=== PATIENT | male | born 1945 | race Two or more races ===

== ENCOUNTER 2022-10-06 17:56 | Inpatient (IN) | payer OTHER, MEDICAID ==
[~2022-10-06] VITALS: Ht 160 cm; Wt 51.7 kg
[2022-10-06 19:48] LABS: Basophils # (auto) 0.1 10 ^3/uL (0-0.2); Eosinophils # (auto) 0.5 10 ^3/uL (0-0.8); Hematocrit 16.3 % (41.0-53.0); Mean Corpuscular Volume 93.4 fL (80.0-100.0); Neutrophils # (auto) 6.5 10 ^3/uL (1.6-8.6)
[2022-10-06 19:49] LABS: Basophils % (auto) 1.3 % (0.0-2.0); Eosinophils % (auto) 5.2 % (0.0-7.0); Lymphocytes # (auto) 1.1 10 ^3/uL (0.4-5.4); Lymphocytes % (auto) 12.6 % (10.0-50.0); Mean Corpuscular Hemoglobin 30.6 pg (28.0-32.0); Mean Corpuscular Hgb Conc. 32.7 g/dL (32.0-36.0); Monocytes # (auto) 0.6 10 ^3/uL (0-1.3); Monocytes % (auto) 6.4 % (0.0-12.0); Neutrophils % (auto) 74.5 % (37.0-80.0); Red Blood Cells 1.75 10^6/uL (4.5-5.90); Red Cell Distribution Width 16.1 % (11.8-14.3); White Blood Cell 8.7 10^3/uL (4.4-10.8)
[2022-10-06 19:54] LABS: Hemoglobin 5.3 g/dL (13.5-17.5)
[2022-10-06 20:45] LABS: Albumin 3.9 g/dL (3.4-5.0); Calcium 8.7 mg/dL (8.5-10.1); Potassium 5.5 mmol/L (3.5-5.1)
[2022-10-06 20:48] LABS: BUN/Creatinine Ratio 9.4 (10.0-20.0); Bilirubin, Total 0.4 mg/dL (0.2-1.0); Total Protein 7.9 g/dL (6.4-8.2)
[2022-10-06] MEDS ORDERED: ACETAMINOPHEN 325 MG TAB PO PRN (21:45)
[2022-10-06] MEDS ORDERED: ONDANSETRON HCL 4 MG/2 ML VIAL IV PRN (21:45)
[2022-10-06] MEDS ORDERED: SODIUM CHLORIDE 0.9% 1,000 ML IV SCH (21:45)
[2022-10-06] MEDS ORDERED: DOCUSATE SOD 100 MG CAP PO PRN (21:45)
[2022-10-06] MEDS ORDERED: InsuLIN REG 1unit/0.01ml Soln (100units/ml) IV ONE (22:45)
[2022-10-06] MEDS ORDERED: SODIUM BICARBONATE 8.4 % INJ 50ML VIAL IV ONE (22:45)
[2022-10-06] MEDS ORDERED: DEXTROSE (50%) 50ML SYRG IV ONE (22:45)
[2022-10-06] MEDS ORDERED: DEXTROSE 10% 1,000 ML IV ONE (23:58)
[2022-10-06] MEDS: HYDROcodone-ACET 5/325MG TAB PO PRN (23:59)
[2022-10-07] VITALS (7 sets, daily range): BP systolic 153–179; BP diastolic 62–89
[2022-10-07] MEDS ORDERED: SODIUM BICARBONATE 50ML VIAL 75 ML in SOD CHL 0.45% 1,000 ML IV ONE ×2
[2022-10-07] MEDS ORDERED: DEXTROSE (50%) 50ML SYRG IV PRN
[2022-10-07] MEDS ORDERED: MORPHINE SULFATE INJ 2 MG/ml SYRG IV PRN
[2022-10-07] MEDS ORDERED: ONDANSETRON HCL 4 MG/2 ML VIAL IV PRN
[2022-10-07] MEDS ORDERED: NITROGLYCERIN 0.4 MG SL TAB SL PRN
[2022-10-07] MEDS ORDERED: FUROSEMIDE 100 MG/10ML VIAL IV ONE
[2022-10-07] MEDS ORDERED: SODIUM BICARBONATE 8.4 % INJ 50ML VIAL IV ONE (00:25)
[2022-10-07 01:10] LABS: % Iron Saturation 7.8 % (20-55)
[2022-10-07 06:05] LABS: Basophils # (auto) 0.1 10 ^3/uL (0-0.2); Basophils % (auto) 0.9 % (0.0-2.0); Eosinophils # (auto) 0.1 10 ^3/uL (0-0.8); Lymphocytes # (auto) 0.5 10 ^3/uL (0.4-5.4); Neutrophils # (auto) 9.5 10 ^3/uL (1.6-8.6); White Blood Cell 10.9 10^3/uL (4.4-10.8)
[2022-10-07 06:08] LABS: Eosinophils % (auto) 1.1 % (0.0-7.0); Hematocrit 14.8 % (41.0-53.0); Lymphocytes % (auto) 4.8 % (10.0-50.0); Mean Corpuscular Hemoglobin 31.3 pg (28.0-32.0); Mean Corpuscular Hgb Conc. 33.8 g/dL (32.0-36.0); Mean Corpuscular Volume 92.7 fL (80.0-100.0); Monocytes # (auto) 0.7 10 ^3/uL (0-1.3); Monocytes % (auto) 6.1 % (0.0-12.0); Neutrophils % (auto) 87.1 % (37.0-80.0); Red Cell Distribution Width 15.8 % (11.8-14.3)
[2022-10-07 06:16] LABS: Urine Bacteria FEW /hpf (None Seen); Urine Blood TRACE /uL (Negative); Urine Specific Gravity 1.009 (1.001-1.035); Urine WBC 870 /hpf (0 - 3); Urine WBC Clumps PRESENT /hpf (None Seen)
[2022-10-07 06:20] LABS: Potassium 5.2 mmol/L (3.5-5.1)
[2022-10-07 06:26] LABS: Albumin 3.4 g/dL (3.4-5.0); Calcium 8.8 mg/dL (8.5-10.1)
[2022-10-07 06:29] LABS: Bilirubin, Total 0.4 mg/dL (0.2-1.0); Total Protein 7.2 g/dL (6.4-8.2)
[2022-10-07] MEDS: InsuLIN REG 1unit/0.01ml Soln (100units/ml) SC SCH ×4 (07:00→22:00)
[2022-10-07] MEDS: hydrALAZINE HCL 20 MG/ML VL IV PRN ×2 (07:02→14:49)
[2022-10-07] MEDS: ACCU-CHEK COMFORT CURVE STRIP VI SCH ×4 (07:04→22:08)
[2022-10-07] MEDS: FAMOTIDINE (10MG/ML) 2ML VL IV SCH (11:00)
[2022-10-07] MEDS ORDERED: IRON SUCROSE COMPLEX 200 MG in SODIUM CHL 0.9% 100 ML IV SCH (15:00)
[2022-10-07 15:49] LABS: Magnesium 2.1 mg/dL (1.6-2.6); Phosphorus 4.6 mg/dL (2.5-4.90)
[2022-10-07] MEDS: SODIUM FERR GLUC 62.5MG/5ML 125 MG in SODIUM CHL 0.9% 100 ML IV SCH (16:33)
[2022-10-07] MEDS: BUMETANIDE INJECTION 25 MG in GIVE UN-DILUTED 0 ML IV SCH (17:33)
[2022-10-08 00:36] LABS: Mean Corpuscular Hemoglobin 28.8 pg (28.0-32.0)
[2022-10-08 00:38] LABS: Basophils # (auto) 0.1 10 ^3/uL (0-0.2); Basophils % (auto) 0.3 % (0.0-2.0); Eosinophils # (auto) 0 10 ^3/uL (0-0.8); Hematocrit 21.6 % (41.0-53.0); Hemoglobin 7.3 g/dL (13.5-17.5); Lymphocytes # (auto) 0.3 10 ^3/uL (0.4-5.4); Lymphocytes % (auto) 2.3 % (10.0-50.0); Mean Corpuscular Hgb Conc. 33.7 g/dL (32.0-36.0); Mean Corpuscular Volume 85.7 fL (80.0-100.0); Monocytes # (auto) 0.8 10 ^3/uL (0-1.3); Monocytes % (auto) 5.6 % (0.0-12.0); Neutrophils # (auto) 13.7 10 ^3/uL (1.6-8.6); Neutrophils % (auto) 91.8 % (37.0-80.0); Nucleated Red Blood Cells % 1.1 %; Red Blood Cells 2.52 10^6/uL (4.5-5.90); Red Cell Distribution Width 19.6 % (11.8-14.3); White Blood Cell 14.9 10^3/uL (4.4-10.8)
[2022-10-08] MEDS ORDERED: IPRATROPIUM BROM 0.5 MG/2.5ML INH SOL NEB PRN (03:15)
[2022-10-08] MEDS ORDERED: ALBUTEROL SULF 2.5 MG/0.5ML(0.5%) NEB SOLN NEB PRN (03:15)
[2022-10-08 04:11] VITALS: BP 184/87
[2022-10-08] MEDS: hydrALAZINE HCL 20 MG/ML VL IV PRN ×2 (04:42→16:38)
[2022-10-08] MEDS: ACCU-CHEK COMFORT CURVE STRIP VI SCH ×4 (06:15→21:45)
[2022-10-08] MEDS: InsuLIN REG 1unit/0.01ml Soln (100units/ml) SC SCH ×4 (06:27→21:46)
[2022-10-08 07:32] LABS: Calcium 8.5 mg/dL (8.5-10.1); Potassium 5.5 mmol/L (3.5-5.1)
[2022-10-08 07:36] LABS: BUN/Creatinine Ratio 10.5 (10.0-20.0)
[2022-10-08 08:05] LABS: Basophils # (auto) 0 10 ^3/uL (0-0.2); Basophils % (auto) 0.2 % (0.0-2.0); Eosinophils # (auto) 0 10 ^3/uL (0-0.8); Eosinophils % (auto) 0.1 % (0.0-7.0); Hematocrit 21.8 % (41.0-53.0); Hemoglobin 7.2 g/dL (13.5-17.5); Lymphocytes # (auto) 0.6 10 ^3/uL (0.4-5.4); Lymphocytes % (auto) 4.3 % (10.0-50.0); Mean Corpuscular Hemoglobin 28.6 pg (28.0-32.0); Mean Corpuscular Hgb Conc. 33.2 g/dL (32.0-36.0); Mean Corpuscular Volume 86.2 fL (80.0-100.0); Monocytes % (auto) 6.8 % (0.0-12.0); Neutrophils # (auto) 12.6 10 ^3/uL (1.6-8.6); Neutrophils % (auto) 88.6 % (37.0-80.0); Red Blood Cells 2.53 10^6/uL (4.5-5.90); Red Cell Distribution Width 19.4 % (11.8-14.3); White Blood Cell 14.2 10^3/uL (4.4-10.8)
[2022-10-08] MEDS: cefTRIAXone 1GM/50ML D5W 50 ML IV SCH (09:19)
[2022-10-08] MEDS: FAMOTIDINE (10MG/ML) 2ML VL IV SCH (10:28)
[2022-10-08 13:00] VITALS: BP 165/80
[2022-10-08] MEDS ORDERED: SODIUM ZIRCONIUM CYCL 10 GM PAK PO ONE (13:45)
[2022-10-08 13:54] VITALS: BP 181/87
[2022-10-08] MEDS: SODIUM ZIRCONIUM CYCL 10 GM PAK PO SCH ×2 (14:00→21:44)
[2022-10-08] MEDS: BUMETANIDE INJECTION 25 MG in GIVE UN-DILUTED 0 ML IV SCH (14:57)
[2022-10-08] MEDS: SODIUM FERR GLUC 62.5MG/5ML 125 MG in SODIUM CHL 0.9% 100 ML IV SCH (15:50)
[2022-10-08 16:56] VITALS: BP 192/86
[2022-10-08] MEDS: SODIUM BICARBONATE 650 MG TAB PO SCH ×2 (18:27→21:44)
[2022-10-08 18:30] VITALS: BP 163/81
[2022-10-08 22:00] VITALS: BP 169/85
[2022-10-08] MEDS: HYDROcodone-ACET 5/325MG TAB PO PRN (23:18)
[2022-10-09] VITALS (8 sets, daily range): BP systolic 151–164; BP diastolic 73–87
[2022-10-09] MEDS ORDERED: AMIODARONE HCL 150 MG in D5W 5% 100 ML IV ONE (05:00)
[2022-10-09] MEDS ORDERED: AMIODARONE 450mg/250ml AE 250 ML IV SCH (05:00)
[2022-10-09] MEDS ORDERED: HEPARIN DRIP/D5W 100UNITS/ML 250 ML IV SCH ×2 (05:00→13:30)
[2022-10-09] MEDS ORDERED: AMIODARONE 450mg/250ml AE 250 ML IV ONE (05:04)
[2022-10-09] MEDS ORDERED: AMIODARONE HCL (50 MG/ ML) 3 ML VIAL IV ONE (05:05)
[2022-10-09] MEDS ORDERED: HEPARIN DRIP/D5W 100UNITS/ML 250 ML IV ONE (05:06)
[2022-10-09] MEDS ORDERED: HEPARIN SODIUM (PORCINE) 5000 UNITS/ML 1ML VIAL IV ONE (05:15)
[2022-10-09 06:06] LABS: Eosinophils # (auto) 0.1 10 ^3/uL (0-0.8); Eosinophils % (auto) 0.6 % (0.0-7.0); Hemoglobin 8.4 g/dL (13.5-17.5); Lymphocytes # (auto) 0.8 10 ^3/uL (0.4-5.4); Monocytes # (auto) 0.9 10 ^3/uL (0-1.3)
[2022-10-09 06:07] LABS: Basophils # (auto) 0.1 10 ^3/uL (0-0.2); Basophils % (auto) 0.5 % (0.0-2.0); Lymphocytes % (auto) 6.4 % (10.0-50.0); Mean Corpuscular Hemoglobin 28.3 pg (28.0-32.0); Mean Corpuscular Hgb Conc. 32.3 g/dL (32.0-36.0); Mean Corpuscular Volume 87.6 fL (80.0-100.0); Monocytes % (auto) 7.2 % (0.0-12.0); Neutrophils # (auto) 10.8 10 ^3/uL (1.6-8.6); Neutrophils % (auto) 85.3 % (37.0-80.0); Nucleated Red Blood Cells % 0.1 %; Red Blood Cells 2.97 10^6/uL (4.5-5.90); White Blood Cell 12.6 10^3/uL (4.4-10.8)
[2022-10-09] MEDS: SODIUM ZIRCONIUM CYCL 10 GM PAK PO SCH ×3 (06:07→21:48)
[2022-10-09] MEDS: SODIUM BICARBONATE 650 MG TAB PO SCH ×4 (06:08→21:48)
[2022-10-09] MEDS: HYDROcodone-ACET 5/325MG TAB PO PRN ×2 (06:08→21:48)
[2022-10-09 06:20] LABS: Red Cell Distribution Width 20.2 % (11.8-14.3)
[2022-10-09] MEDS: InsuLIN REG 1unit/0.01ml Soln (100units/ml) SC SCH ×4 (06:22→21:53)
[2022-10-09] MEDS: ACCU-CHEK COMFORT CURVE STRIP VI SCH ×4 (06:22→22:25)
[2022-10-09 06:29] LABS: BUN/Creatinine Ratio 11.1 (10.0-20.0); Calcium 9.2 mg/dL (8.5-10.1); Magnesium 2.2 mg/dL (1.6-2.6); Potassium 4.3 mmol/L (3.5-5.1)
[2022-10-09 07:15] LABS: INR 1.22 (0.9-1.15); Partial Thromboplastin Time 44.6 sec (24.6-33.4)
[2022-10-09] MEDS: cefTRIAXone 1GM/50ML D5W 50 ML IV SCH (08:51)
[2022-10-09] MEDS: FAMOTIDINE (10MG/ML) 2ML VL IV SCH (09:34)
[2022-10-09] MEDS: AMIODARONE 450mg/250ml AE 250 ML IV SCH (11:00)
[2022-10-09] MEDS ORDERED: FUROSEMIDE 40 MG/4 ML VIAL IV ONE (13:45)
[2022-10-09] MEDS: SODIUM FERR GLUC 62.5MG/5ML 125 MG in SODIUM CHL 0.9% 100 ML IV SCH (14:24)
[2022-10-09] MEDS: BUMETANIDE INJECTION 25 MG in GIVE UN-DILUTED 0 ML IV SCH (15:00)
[2022-10-09] MEDS: hydrALAZINE HCL 20 MG/ML VL IV PRN (15:41)
[2022-10-09] MEDS ORDERED: LIDOCAINE 2%HCL (LOCAL ANESTH.) INJ 20ML MDV ONE (16:55)
[2022-10-09] MEDS ORDERED: HEPARIN SODIUM (PORCINE) 5000 UNITS/ML 1ML VIAL ONE (17:09)
[2022-10-09] MEDS ORDERED: fentaNYL CITRATE 100 MCG/2 ML VL ONE (17:09)
[2022-10-09] MEDS ORDERED: MIDAZOLAM HCL 2MG/2ML 2ml VIAL (1mg/ml) ONE (17:09)
[2022-10-09] MEDS: METOPROLOL TARTRATE 25 MG TAB PO SCH (21:51)
[2022-10-10 01:09] LABS: INR 1.18 (0.9-1.15)
[2022-10-10 05:00] VITALS: BP 120/61
[2022-10-10 05:57] LABS: Basophils # (auto) 0.1 10 ^3/uL (0-0.2); Eosinophils # (auto) 0.3 10 ^3/uL (0-0.8); Eosinophils % (auto) 3.1 % (0.0-7.0); Lymphocytes # (auto) 0.6 10 ^3/uL (0.4-5.4); Monocytes # (auto) 0.8 10 ^3/uL (0-1.3); Nucleated Red Blood Cells % 0.1 %; Red Blood Cells 2.54 10^6/uL (4.5-5.90)
[2022-10-10 06:01] LABS: Basophils % (auto) 0.7 % (0.0-2.0); Hematocrit 21.7 % (41.0-53.0); Hemoglobin 7.6 g/dL (13.5-17.5); Lymphocytes % (auto) 6.5 % (10.0-50.0); Mean Corpuscular Hgb Conc. 35.1 g/dL (32.0-36.0); Mean Corpuscular Volume 85.5 fL (80.0-100.0); Monocytes % (auto) 8.4 % (0.0-12.0); Neutrophils # (auto) 7.3 10 ^3/uL (1.6-8.6); Neutrophils % (auto) 81.3 % (37.0-80.0); Red Cell Distribution Width 19.2 % (11.8-14.3)
[2022-10-10] MEDS: HYDROcodone-ACET 5/325MG TAB PO PRN (06:04)
[2022-10-10] MEDS: SODIUM BICARBONATE 650 MG TAB PO SCH ×2 (06:04→12:27)
[2022-10-10] MEDS: SODIUM ZIRCONIUM CYCL 10 GM PAK PO SCH (06:04)
[2022-10-10] MEDS: InsuLIN REG 1unit/0.01ml Soln (100units/ml) SC SCH ×3 (06:07→16:45)
[2022-10-10] MEDS: ACCU-CHEK COMFORT CURVE STRIP VI SCH ×3 (06:07→16:44)
[2022-10-10 06:14] LABS: BUN/Creatinine Ratio 10.9 (10.0-20.0); Calcium 8.1 mg/dL (8.5-10.1); Potassium 3.9 mmol/L (3.5-5.1)
[2022-10-10 06:22] LABS: INR 1.21 (0.9-1.15); Partial Thromboplastin Time 53.2 sec (24.6-33.4)
[2022-10-10] MEDS ORDERED: SODIUM CHL 0.9% 1000 ML BAG XX ONE (07:00)
[2022-10-10 08:00] VITALS: BP 127/67
[2022-10-10] MEDS ORDERED: APIX5TAB PO (08:21)
[2022-10-10] MEDS ORDERED: MET25T PO (08:21)
[2022-10-10] MEDS: cefTRIAXone 1GM/50ML D5W 50 ML IV SCH (08:31)
[2022-10-10] MEDS: FAMOTIDINE (10MG/ML) 2ML VL IV SCH (10:38)
[2022-10-10] MEDS: METOPROLOL TARTRATE 25 MG TAB PO SCH (10:38)
[2022-10-10] MEDS: AMIODARONE 450mg/250ml AE 250 ML IV SCH (10:55)
[2022-10-10 12:00] VITALS: BP 145/78
[2022-10-10] MEDS: SODIUM FERR GLUC 62.5MG/5ML 125 MG in SODIUM CHL 0.9% 100 ML IV SCH (12:00)
[2022-10-10 12:35] LABS: INR 1.21 (0.9-1.15); Partial Thromboplastin Time 46.7 sec (24.6-33.4)
[2022-10-10] MEDS ORDERED: HEPARIN DRIP/D5W 100UNITS/ML 250 ML IV SCH (13:15)
[2022-10-10] MEDS: BUMETANIDE INJECTION 25 MG in GIVE UN-DILUTED 0 ML IV SCH (15:00)
[2022-10-10 16:00] VITALS: BP 156/75
[2022-10-10 17:27] VITALS: BP 156/75
[2022-10-10] MEDS ORDERED: EPOETIN ALFA-EPBX 10,000 UNIT/1ML VIAL SC ONE (21:00)
== END 2022-10-10 18:00 | disposition home or self-care (01) | DRG 808 ==
LOC: ER 17:56 → TELE 23:53 → OBSVTOIN 10-08 11:49 → CENTRAL 10-08 12:41 → TELE-CENTR 10-08 13:41
PROVIDERS: ADMIT Hospitalist; ATTEND Hospitalist
PROC: 30233N1 Transfusion of Nonautologous Red Blood Cells into Peripheral Vein, Percutaneous Approach (ICD-10-PCS; principal; 2022-10-07)
PROC: 0JH63XZ Insertion of Tunneled Vascular Access Device into Chest Subcutaneous Tissue and Fascia, Percutaneous Approach (ICD-10-PCS; 2022-10-09)
PROC: 02HV33Z Insertion of Infusion Device into Superior Vena Cava, Percutaneous Approach (ICD-10-PCS; 2022-10-09)
PROC: B5181ZA Fluoroscopy of Superior Vena Cava using Low Osmolar Contrast, Guidance (ICD-10-PCS; 2022-10-09)
PROC: B548ZZA Ultrasonography of Superior Vena Cava, Guidance (ICD-10-PCS; 2022-10-09)
DX: D61.9 Aplastic anemia, unspecified (principal); N18.6 End stage renal disease; E87.20 Acidosis, unspecified; I12.0 Hypertensive chronic kidney disease with stage 5 chronic kidney disease or end stage renal disease; N13.30 Unspecified hydronephrosis; N17.9 Acute kidney failure, unspecified; D63.1 Anemia in chronic kidney disease; E11.22 Type 2 diabetes mellitus with diabetic chronic kidney disease; E87.5 Hyperkalemia; F17.210 Nicotine dependence, cigarettes, uncomplicated; E87.70 Fluid overload, unspecified; I48.91 Unspecified atrial fibrillation; J44.9 Chronic obstructive pulmonary disease, unspecified; J84.10 Pulmonary fibrosis, unspecified; Z79.4 Long term (current) use of insulin; Z80.0 Family history of malignant neoplasm of digestive organs; Z80.3 Family history of malignant neoplasm of breast; Z85.038 Personal history of other malignant neoplasm of large intestine; Z90.49 Acquired absence of other specified parts of digestive tract; Z91.199 Patient's noncompliance with other medical treatment and regimen due to unspecified reason; Z93.3 Colostomy status; Z99.2 Dependence on renal dialysis
CPT/HCPCS: 36415; 71045; 74176; 76775; 76937; 78707; 80048; 80053; 80074; 81001; 82306; 82570; 82962; 83540; 83550; 83735; 83970; 84100; 84156; 84300; 85025; 85610; 85730; 86850; 86900; 86901; 86920; 90935; 93306; 94640; 96365; 96375; 99152; C1750; C1894; G0378; J0696; J1642; J1756; J1815; J2250; J3490; J7060

== ENCOUNTER 2022-10-31 12:49 | Emergency (ER) | payer OTHER, MEDICAID ==
[~2022-10-31] VITALS: Ht 165.1 cm; Wt 68.1 kg
[~2022-10-31 12:49] MED LIST: APIX5TAB PO; MET25T PO
[2022-10-31] MEDS ORDERED: LIDOCAINE 1% (LOCAL ANESTH.) PF 5ml SDV ID ONE (13:15)
[2022-10-31 13:28] LABS: Basophils # (auto) 0.1 10 ^3/uL (0-0.2); Eosinophils # (auto) 0.4 10 ^3/uL (0-0.8); Hematocrit 21.8 % (41.0-53.0); Lymphocytes # (auto) 0.8 10 ^3/uL (0.4-5.4); Neutrophils # (auto) 6.2 10 ^3/uL (1.6-8.6); White Blood Cell 8.2 10^3/uL (4.4-10.8)
[2022-10-31 13:30] LABS: Eosinophils % (auto) 4.5 % (0.0-7.0); Hemoglobin 7.3 g/dL (13.5-17.5); Lymphocytes % (auto) 10.1 % (10.0-50.0); Mean Corpuscular Hemoglobin 29.9 pg (28.0-32.0); Mean Corpuscular Hgb Conc. 33.4 g/dL (32.0-36.0); Mean Corpuscular Volume 89.8 fL (80.0-100.0); Monocytes # (auto) 0.7 10 ^3/uL (0-1.3); Monocytes % (auto) 8.5 % (0.0-12.0); Neutrophils % (auto) 75.9 % (37.0-80.0); Red Blood Cells 2.42 10^6/uL (4.5-5.90); Red Cell Distribution Width 19.8 % (11.8-14.3)
[2022-10-31] MEDS ORDERED: LIDOCAINE 1% HCL (LOCAL ANESTH.) INJ 20ML MDV ONE (13:49)
[2022-10-31 13:58] LABS: Albumin 3.3 g/dL (3.4-5.0); Potassium 4.7 mmol/L (3.5-5.1)
[2022-10-31 14:01] LABS: BUN/Creatinine Ratio 4.3 (10.0-20.0); Bilirubin, Total 0.5 mg/dL (0.2-1.0); Total Protein 6.7 g/dL (6.4-8.2)
[2022-10-31 14:10] VITALS: BP 166/59
== END 2022-10-31 15:11 | disposition home or self-care (01) ==
LOC: ER 12:49 → EDBD 12:49 → ER 15:10
DX: T82.41XA Breakdown (mechanical) of vascular dialysis catheter, initial encounter (principal); F17.210 Nicotine dependence, cigarettes, uncomplicated; I12.9 Hypertensive chronic kidney disease with stage 1 through stage 4 chronic kidney disease, or unspecified chronic kidney disease; N18.9 Chronic kidney disease, unspecified
CPT/HCPCS: 36415; 80053; 85025; J2001

== ENCOUNTER 2022-11-07 17:40 | Emergency (ER) | payer OTHER, MEDICAID ==
[~2022-11-07] VITALS: Ht 170.2 cm; Wt 69.5 kg
[2022-11-07 18:41] LABS: Basophils # (auto) 0.1 10 ^3/uL (0-0.2); Eosinophils # (auto) 0.4 10 ^3/uL (0-0.8); Hematocrit 20.3 % (41.0-53.0); Lymphocytes # (auto) 1.1 10 ^3/uL (0.4-5.4); Monocytes # (auto) 0.6 10 ^3/uL (0-1.3); Monocytes % (auto) 9.4 % (0.0-12.0); Red Blood Cells 2.22 10^6/uL (4.5-5.90)
[2022-11-07 18:43] LABS: Basophils % (auto) 1.6 % (0.0-2.0); Eosinophils % (auto) 6.3 % (0.0-7.0); Mean Corpuscular Hemoglobin 30.2 pg (28.0-32.0); Mean Corpuscular Hgb Conc. 33.1 g/dL (32.0-36.0); Mean Corpuscular Volume 91.3 fL (80.0-100.0); Neutrophils # (auto) 4.5 10 ^3/uL (1.6-8.6); Neutrophils % (auto) 66.7 % (37.0-80.0); White Blood Cell 6.7 10^3/uL (4.4-10.8)
[2022-11-07 18:47] LABS: Red Cell Distribution Width 20.8 % (11.8-14.3)
[2022-11-07 18:50] LABS: Albumin 3.2 g/dL (3.4-5.0); Calcium 7.9 mg/dL (8.5-10.1); Potassium 3.8 mmol/L (3.5-5.1)
[2022-11-07 18:51] LABS: Hemoglobin 6.7 g/dL (13.5-17.5)
[2022-11-07 18:53] LABS: BUN/Creatinine Ratio 3.9 (10.0-20.0); Bilirubin, Total 0.5 mg/dL (0.2-1.0); Total Protein 6.8 g/dL (6.4-8.2)
[2022-11-07 19:05] LABS: INR 1.23 (0.9-1.15); Partial Thromboplastin Time 33.3 SEC (24.5-34.5)
[2022-11-07 22:11] VITALS: BP 131/68
[2022-11-07 22:30] VITALS: BP 185/80
[2022-11-07 22:43] VITALS: BP 122/76
[2022-11-08 00:05] VITALS: BP 206/94
[2022-11-08] MEDS ORDERED: amLODIPine BESYLATE 5 MG TAB PO ONE (00:15)
[2022-11-08 00:34] VITALS: BP 191/91
[2022-11-08 02:00] VITALS: BP 198/99
== END 2022-11-08 02:16 | disposition home or self-care (01) ==
LOC: ER 17:40
DX: D64.9 Anemia, unspecified (principal); I12.0 Hypertensive chronic kidney disease with stage 5 chronic kidney disease or end stage renal disease; N18.6 End stage renal disease; E78.5 Hyperlipidemia, unspecified; F17.210 Nicotine dependence, cigarettes, uncomplicated
CPT/HCPCS: 36415; 36430; 80053; 85025; 85610; 85730; 86850; 86900; 86901; 86920; 99285; P9016

== ENCOUNTER 2024-11-21 11:09 | Inpatient (IN) | payer OTHER, MEDICARE ==
[2024-11-21] VITALS (9 sets, daily range): BP systolic 154–181; BP diastolic 55–79; PULSE 77–86; RESP 16–22; TEMP 97.5–98.8; O2SAT 94–99
[~2024-11-21] VITALS: Ht 167.6 cm; Wt 21.2 kg
--- NOTE | 2024-11-21 11:46 | ED.PDOC ---
History of Present Illness HPI Comments HPI: A 78 year-old male, with a HX of Kidney Failure, BIB daughter, presents to the ED via wheelchair with a chief complaint general weakness with associated dark stools as of today. Per daughter, patient goes to dialysis regularly and was told on Sunday that his hemoglobin is low. Per daughter, patient recently slipped and injured his ribs. Patient has no further complaints at this time and otherwise denies further associated symptoms of migraine, slurred speech, blurred vision, dizziness, fatigue, N/V, or abdominal pain. Past Medical history: Kidney Failure Past Surgical history: Medications: Social History: Denies smoking, ETOH, and drug use. Allergies: NKA NG: HPI: Poor Historian. Patient family was called regarding low hemoglobin. Patient had blood transfusion in the past. Patient has some generalized weakness. No other acute complaints. Patient has his most recent dialysis two days ago on Sunday. He is scheduled for dialysis today. Past Medical History: Past Surgical History: REVIEW OF SYSTEMS: CONSTITUTIONAL: Denies acute: fever, diaphoresis, chills, HEAD: Denies acute: headache, photophobia Eyes: Denies acute: Double vision, vision loss, eye pain, eye discharge. EARS: Denies acute: tinnitus, hearing loss, ear discharge, ear pain, THROAT: Denies acute: sore throat, swelling, difficulty swallowing , pain with swallowing, change in voice. NECK: Denies acute: neck pain, neck swelling, stiff neck. HEART: Denies acute : chest pain, palpitations, LUNGS: Denies acute: SOB, wheezing, cough, hemoptysis ABDOMEN: Denies acute: abdominal pain, Nausea, Vomiting, diarrhea, melena , hematemesis, hematochezia SKIN: Denies acute: rash, redness, lesions, itchiness. EXTREMITIES: Denies acute: calf pain, numbness, tingling, weakness, denies pain in extremity. Denies acute: Low back pain. Neuro: Denies acute: focal neurological deficit, motor or sensory focal neurological deficit, tremors, seizure like activity, confusion, dizziness, change in mental status, loss of bowel or bladder function, cauda equina like symptoms. : Denies acute: dysuria, hematuria, flank pain, increase in urinary frequency. PSYCH: Denies acute: hallucination, suicidal ideation, homicidal ideation. FEMALE: Denies acute: abnormal vaginal bleeding, foul odor, unusual discharge. PHYSICAL EXAM: General: -----mild---acute distress, awake and alert. Head: normocephalic, atraumatic. Neck: supple, trachea is midline, no swelling. Throat: Normal phonation. Eyes:, no erythema, no purulent discharge, no proptosis, no icterus. Heart: regular rate, regular rhythm, no significant murmur appreciated. Lungs: no apparent respiratory distress, Able to speak in full sentences. No wheezing, no rhonchi, no crackles. No stridors Clear to auscultation bilaterally. Abdomen: non tender to palpation, non distended, soft, no guarding, no rebound, + bowel sounds. Noted the colostomy pouch Neuro: Awake, Alert, oriented to name, self, situation, follows commands GCS=15. Speech is normal. Skin: no petechia, no purpura, no cyanosis, non-pale, not jaundice. Lower extremities: --no - Pitting edema no deformity, no focal swelling, no calf TTP. Makes eye contact. moves all four extremities. Face: no apparent facial droop. ED COURSE: DISCLAIMER: This medical document was created using an electronic medical record system with voice recognition software and computerized dictation system. Although this document has been carefully reviewed, there might still be some phonetic and typographical errors. Occasional wrong-word or "sound-alike" substitutions may have occurred due to the inherent limitations of voice recognition software. These areas are purely typographical due to imperfections of the software programs and do not reflect any compromise in the patient's medical care. Please read the chart carefully and recognize, using context, where these substitutions have occurred. Chief Complaint: General Weakness Time Seen by MD: 11:09 Reviewed Notes: Medications, Allergies Allergies: Coded Allergies: No Known Drug Allergy (Verified Allergy, Unknown, 11/21/24) Information Source: Patient, Relative (Child) Mode of Arrival: Wheelchair Severity: Moderate Timing: Days Duration: Since onset Prehospital treatment: None Associated signs and symptoms General Weakness and Dark Stool Past Medical History Past Medical History (Other): Kidney Failure Surgical History: Denies all surgeries Family History Family History: Reviewed,noncontributory to illness, No family hx of Cancer, No family hx of DM, No family hx of Heart doris, No family hx of HTN, No family hx ofKidney doris, No family hx of Liver doris, No family hx of Lung doris, No family hx of Stroke Social History Smoker: Non-Smoker Alcohol: Denies ETOH Use Drugs: Denies Drug Use Lives In: Assisted Care Was a procedure done? Was a procedure done?: No Differential Dx Considerations may include: Includes but not limited to thyroid disease, encephalopathy, electrolyte abnormality, sepsis, infection, intracranial pathology, drug adverse effects, arrhythmia, kidney insufficiency, ACS, CVA, malignancy, anemia X-Ray, Labs, Meds, VS Vital Signs Date Time Temp Pulse Resp B/P (MAP) Pulse Ox O2 Delivery O2 Flow Rate FiO2 11/21/24 16:00 78 22 185/53 (97) 93 11/21/24 15:30 97.5 79 22 164/55 97.5 11/21/24 15:15 98.1 83 18 181/61 98.1 11/21/24 14:00 81 22 158/63 (94) 94 11/21/24 12:35 Nasal Cannula* 3 32 11/21/24 12:35 98.1 80 22 150/54 (86) 95 98.1 11/21/24 12:00 98.7 75 16 132/47 (75) 97 98.7 11/21/24 11:51 75 Lab Test 11/21/24 15:56 11/21/24 14:56 11/21/24 13:05 11/21/24 11:46 Range/Units Prothrombin Time 13.0 H 9.3-11.8 sec Prothrombin Time INR 1.25 H 0.9-1.15 Activated Partial Thromboplast Time 41.6 H 24.5-34.5 SEC Troponin I High Sensitivity 61 *H 58 *H </=54 ng/L POC Glucose 146 H 70-106 mg/dl Test 11/21/24 11:36 Range/Units White Blood Count 12.3 H 4.4-10.8 10^3/uL Red Blood Count 1.89 L 4.5-5.90 10^6/uL Hemoglobin 5.8 *L 13.5-17.5 g/dL Hematocrit 17.9 L 41.0-53.0 % Mean Corpuscular Volume 94.5 80.0-100.0 fL Mean Corpuscular Hemoglobin 30.4 28.0-32.0 pg Mean Corpuscular Hemoglobin Concent 32.1 32.0-36.0 g/dL Red Cell Distribution Width 17.4 H 11.8-14.3 % Platelet Count 267 140-450 10^3/uL Mean Platelet Volume 8.0 6.9-10.8 fL Neutrophils (%) (Auto) 87.5 H 37.0-80.0 % Lymphocytes (%) (Auto) 5.1 L 10.0-50.0 % Monocytes (%) (Auto) 4.9 0.0-12.0 % Eosinophils (%) (Auto) 2.1 0.0-7.0 % Basophils (%) (Auto) 0.4 0.0-2.0 % Neutrophils # (Auto) 10.8 H 1.6-8.6 10 ^3/uL Lymphocytes # (Auto) 0.6 0.4-5.4 10 ^3/uL Monocytes # (Auto) 0.6 0-1.3 10 ^3/uL Eosinophils # (Auto) 0.3 0-0.8 10 ^3/uL Basophils # (Auto) 0 0-0.2 10 ^3/uL Nucleated Red Blood Cells 0.1 % Sodium Level 133 L 136-145 mmol/L Potassium Level 4.9 3.5-5.1 mmol/L Chloride Level 96 L 98-107 mmol/L Carbon Dioxide Level 26 20-31 mmol/L Anion Gap 11 5-15 Blood Urea Nitrogen 59 H 9-23 mg/dL Creatinine 5.59 H 0.700-1.30 mg/dL Glomerular Filtration Rate Calc 10 >90 mL/min BUN/Creatinine Ratio 10.6 10.0-20.0 Serum Glucose 151 H 74-106 mg/dL Hemoglobin A1c < 3.8 <5.7 % A1C Lactic Acid Level 1.4 0.4-2.0 mmol/L Calcium Level 10.1 8.7-10.4 mg/dL Phosphorus Level 2.2 L 2.4-5.1 mg/dL Magnesium Level 1.9 1.6-2.6 mg/dL Iron Level 26 L 65-175 ug/dL Total Iron Binding Capacity 208 L 250-425 ug/dL Percent Iron Saturation 12.5 L 20-55 % Ferritin 869.1 H 22-322 ng/mL Total Bilirubin 0.4 0.2-1.0 mg/dL Aspartate Amino Transferase (AST) 42 H 13-40 U/L Alanine Aminotransferase (ALT) 57 H 7-40 U/L Alkaline Phosphatase 109 46-116 U/L Troponin I High Sensitivity 62 *H </=54 ng/L Total Protein 6.9 5.7-8.2 g/dL Albumin 4.2 3.2-4.8 g/dL Vitamin B12 Level Pending Thyroid Stimulating Hormone (TSH) 2.27 0.55-4.78 uIU/mL Parathyroid Hormone (Intact) 123.5 H 18.4-80.1 pg/mL [place] [id number] Ph: [phone] DIAGNOSTIC IMAGING Diagnostic Imaging Report : [id number] Signed PATIENT: LAURA NG ACCT: [id number] UNIT: [id number] : 1945 LOC: ER ROOM / BED: / AGE / SEX: 78 / M ADM STATUS: REG ER SERVICE 24 ORDERING PHYSICIAN: AIMEE SHER DO PROCEDURE(s): CXRP - CHEST PORTABLE REASON: GEN WEAK ORDER NUMBER(s): [id number], ACCESSION NUMBER(s): [id number] CHEST RADIOGRAPH Indication: WEAK Technique: Single frontal view of the chest was obtained COMPARISON: None FINDINGS: Lines and Tubes: Right tunneled central venous catheter in satisfactory position. Lungs: Increased interstitial prominence Pleura: No effusion. No pneumothorax. Cardiomediastinal contours: Cardiomegaly Bones: Unremarkable IMPRESSION: Mild pulmonary vascular congestion Time of 1ST Reevaluation: 11:45 Reevaluation 1ST: Unchanged Patient Education/Counseling: Diagnosis, Treatment Family Education/Counseling: Diagnosis, Treatment Comments MDM: patient presented with the above HPI.---generalized weakness/low hemoglobin---workup was initiated. patient was found with the above mentioned diagnosis. the following medications were ordered: please refer to order lists of meds and tests obtained by myself Dr. Sher. Patient ED course and VS have been stabilized. Patient has been reassessed in the ED and remained in a stable condition. Pertinent incidental findings were discussed with the patient and/or family. Patient/family voices understanding and is agreeable with plan. Patient has been observed in the ED adequate length of time to insure improvement/stability. Escalation of care considered: Consideration of escalation to observation or admission Patient was consented for blood transfusion. Patient has multiple blood transfusions in the past. Patient was ADMITTED to the medicine team for further evaluation and treatment of their presentation. All the reports of any imaging studies that were ordered by myself were reviewed by myself. SEPSIS Sepsis Screen Physician Orders Quick Technician (11/21/24 ) Urinalysis (11/21/24 11:10) Chest Portable (11/21/24 11:25) Electrocardigram (11/21/24 11:10) Obtain Consent For: (11/21/24 12:31) Obtain Consent For Anesthesia (11/21/24 12:31) Vital Signs Date Time Temp Pulse Resp B/P (MAP) Pulse Ox O2 Delivery O2 Flow Rate FiO2 11/21/24 16:00 78 22 185/53 (97) 93 11/21/24 15:30 97.5 79 22 164/55 97.5 11/21/24 15:15 98.1 83 18 181/61 98.1 11/21/24 14:00 81 22 158/63 (94) 94 11/21/24 12:35 Nasal Cannula* 3 32 11/21/24 12:35 98.1 80 22 150/54 (86) 95 98.1 11/21/24 12:00 98.7 75 16 132/47 (75) 97 98.7 11/21/24 11:51 75 Laboratory Tests Test 11/21/24 11:36 Lactic Acid Level 1.4 mmol/L (0.4-2.0) White Blood Count 12.3 10^3/uL (4.4-10.8) H Departure 1 Departure Time of Disposition: 12:09 Impression: Primary Impression: Symptomatic anemia Additional Impression: End-stage renal disease on hemodialysis Disposition: ADMITTED INPATIENT Admit to: Tele Condition: Guarded Discharged With: Self Critical Care Note Critical Care Time?: Yes (45 min-critical care time only) I personally scribed for AIMEE SHER DO ([facility]) on 11/21/24 at 11:46. E lectronically submitted by Rosaline Blue (CRAIG). I personally scribed for AIMEE SHER DO ([email or web address]) on 11/21/24 at 12:07. Electronically submitted by Rosaline Blue (CRAIG). I personally scribed for AIMEE SHER DO ([facility]) on 11/21/24 at 12:21. Electronically submitted by Rosaline Blue (CRAIG). I personally scribed for AIMEE SHER DO ([email or web address]) on 11/21/24 at 13:59. Electronically submitted by Rosaline Blue (CRAIG). IAMEE SHER DO Nov 21, 2024 11:46
[2024-11-21 11:57] LABS: Hematocrit 17.9 % (41.0-53.0); Mean Corpuscular Hemoglobin 30.4 pg (28.0-32.0); Mean Corpuscular Volume 94.5 fL (80.0-100.0); Nucleated Red Blood Cells % 0.1 %
[2024-11-21 12:02] LABS: Hemoglobin 5.8 g/dL (13.5-17.5)
[2024-11-21 12:11] LABS: Albumin 4.2 g/dL (3.2-4.8); Alkaline Phosphatase 109 U/L (46-116); Anion Gap 11 (5-15); BUN/Creatinine Ratio 10.6 (10.0-20.0); Calcium 10.1 mg/dL (8.7-10.4); Carbon Dioxide 26 mmol/L (20-31); Potassium 4.9 mmol/L (3.5-5.1); Total Protein 6.9 g/dL (5.7-8.2)
[2024-11-21 12:12] LABS: Alanine Aminotransferase 57 U/L (7-40); Bilirubin, Total 0.4 mg/dL (0.2-1.0); Blood Urea Nitrogen 59 mg/dL (9-23); Chloride 96 mmol/L (98-107); Glucose 151 mg/dL (74-106); Sodium 133 mmol/L (136-145)
--- NOTE | 2024-11-21 16:21 | DVHHPRES ---
History of Present Illness Resident Creating Document: DWAINE HAYS RESIDENT History of Present Illness MR. NG is a 78-year-old male with COPD, ESRD on hemodialysis for the past 2 years with the [facility] dialysis, M/W/Fr, hypertension, hyperlipidemia, hypokalemia who presented to the ER with a chief complaint of generalized weakness. Patient is following commands but appeared confused. He does not know where he is at this time. Called daughter Adele, per the daughter: Patient underwent hemodialysis 2 days back on Sunday when he had lab work done and the hemodialysis center called as the patient had low hemoglobin and asked the patient to go to ER. Patient has been experiencing generalized we akness, he has been not eating anything including liquids or solid food for the past 2-3 weeks. He has been losing weight and has not been ambulating. Patient is requiring a walker for ambulation. Patient was recently admitted in [facility] for a fall 7 days back. Per daughter, patient denies fever chills nausea, vomiting, diarrhea. She says that the colostomy output his a bit dark in color. Patient last had colonoscopy 2015 when his colon cancer was resected. PMH: COPD, ESRD on HD 2 years - d/t R fistula, HTN, HLD, hypokalemia PSH: colon cancer 2016 s/p colostomy and resection [address] Emiliano ruiz HM: valsartan, eliquis 5MG, ppi, amlodipine 10mg, methocarbamol 25mg, potassium, negespro, trelegy Patient seen and examined at bedside. Stool occult ordered, pantoprazole ordered, undergoing blood transfusion, repeat H&H later. Review of Systems Review of Systems Could not be obtained as patient appears confused Allergies: Coded Allergies: No Known Drug Allergy (Verified Allergy, Unknown, 11/21/24) Exam Vital Signs Vital Signs Date Time Temp Pulse Resp B/P (MAP) Pulse Ox O2 Delivery O2 Flow Rate FiO2 11/21/24 15:30 97.5 79 22 164/55 97.5 11/21/24 12:35 Nasal Cannula* 3 32 11/21/24 12:35 95 Exam Patient lying in bed, in no acute distress. Patient has right upper arm fistula, left upper arm fistula, right tunneled catheter General: Thin-appearing, afebrile, palor, mucosae are moist Cardiovascular: Regular S1 and S2. No murmurs, gallops or rubs. No JVD elevation. No pedal edema Respiratory: Bilateral decreased breath sounds heard on auscultation, on NC s upplementation Abdomen: Soft, nontender, nondistended, normoactive bowel sounds, no rebound tenderness, no organomegaly, no masses. Colostomy seen, draining 20 cc of dark brown stool Genitourinary: Deferred MSK/skin: Mobilizes 4 limbs. Skin is dry and warm Neurological: No motor, no sensitive deficits, normal speech. Pupils are isocoric and reactive. Psych/Mental Status: A/Ox1 Labs/Xrays Labs Test 11/21/24 14:56 11/21/24 11:46 11/21/24 11:36 Range/Units Troponin I High Sensitivity 61 *H </=54 ng/L POC Glucose 146 H 70-106 mg/dl White Blood Count 12.3 H 4.4-10.8 10^3/uL Red Blood Count 1.89 L 4.5-5.90 10^6/uL Hemoglobin 5.8 *L 13.5-17.5 g/dL Hematocrit 17.9 L 41.0-53.0 % Mean Corpuscular Volume 94.5 80.0-100.0 fL Mean Corpuscular Hemoglobin 30.4 28.0-32.0 pg Mean Corpuscular Hemoglobin Concent 32.1 32.0-36.0 g/dL Red Cell Distribution Width 17.4 H 11.8-14.3 % Platelet Count 267 140-450 10^3/uL Mean Platelet Volume 8.0 6.9-10.8 fL Neutrophils (%) (Auto) 87.5 H 37.0-80.0 % Lymphocytes (%) (Auto) 5.1 L 10.0-50.0 % Monocytes (%) (Auto) 4.9 0.0-12.0 % Eosinophils (%) (Auto) 2.1 0.0-7.0 % Basophils (%) (Auto) 0.4 0.0-2.0 % Neutrophils # (Auto) 10.8 H 1.6-8.6 10 ^3/uL Lymphocytes # (Auto) 0.6 0.4-5.4 10 ^3/uL Monocytes # (Auto) 0.6 0-1.3 10 ^3/uL Eosinophils # (Auto) 0.3 0-0.8 10 ^3/uL Basophils # (Auto) 0 0-0.2 10 ^3/uL Nucleated Red Blood Cells 0.1 % Sodium Level 133 L 136-145 mmol/L Potassium Level 4.9 3.5-5.1 mmol/L Chloride Level 96 L 98-107 mmol/L Carbon Dioxide Level 26 20-31 mmol/L Anion Gap 11 5-15 Blood Urea Nitrogen 59 H 9-23 mg/dL Creatinine 5.59 H 0.700-1.30 mg/dL Glomerular Filtration Rate Calc 10 >90 mL/min BUN/Creatinine Ratio 10.6 10.0-20.0 Serum Glucose 151 H 74-106 mg/dL Lactic Acid Level 1.4 0.4-2.0 mmol/L Calcium Level 10.1 8.7-10.4 mg/dL Total Bilirubin 0.4 0.2-1.0 mg/dL Aspartate Amino Transferase (AST) 42 H 13-40 U/L Alanine Aminotransferase (ALT) 57 H 7-40 U/L Alkaline Phosphatase 109 46-116 U/L Total Protein 6.9 5.7-8.2 g/dL Albumin 4.2 3.2-4.8 g/dL SEPSIS Sepsis Screen Date sepsis recognized/suspect: Nov 21, 2024 Time Sepsis recognized/suspect: 1138 Recent Procedure: No On Antibiotic Therapy: No Respiratory Rate >20: No Heart Rate >90: No Temp<36 C (96.8 F) or >38.3 C: No SBP <90 or MAP <65 mmHG: No New Acute Mental Status Change: No Is the patient on CPAP, BIPAP,: No Physician Orders Aeroplane Pilot (11/21/24 ) Urinalysis (11/21/24 11:10) Chest Portable (11/21/24 11:25) Electrocardigram (11/21/24 11:10) Type And Screen (11/21/24 11:35) Obtain Consent For: (11/21/24 12:31) Obtain Consent For Anesthesia (11/21/24 12:31) Admit (11/21/24 16:19) Iron Panel (11/21/24 16:19) Ferritin (11/21/24 16:19) Vital Signs Date Time Temp Pulse Resp B/P (MAP) Pulse Ox O2 Delivery O2 Flow Rate FiO2 11/21/24 15:30 97.5 79 22 164/55 97.5 11/21/24 15:15 98.1 83 18 181/61 98.1 11/21/24 12:35 Nasal Cannula* 3 32 11/21/24 12:35 98.1 80 22 150/54 (86) 95 98.1 11/21/24 12:00 98.7 75 16 132/47 (75) 97 98.7 11/21/24 11:51 75 Laboratory Tests Test 11/21/24 11:36 Lactic Acid Level 1.4 mmol/L (0.4-2.0) White Blood Count 12.3 10^3/uL (4.4-10.8) H Assessment/Plan Assessment/Plan Generalized weakness secondary to blood loss anemia Acute blood loss anemia requiring transfusion Likely GI bleeding Anemia likely microcytic and anemia of chronic disease GI consultation pending IV Protonix 40 mg b.i.d. and Carafate q.i.d. NPO [address] abdomen with pelvis with IV contrast pending Ammonia level pending Follow up with the stool occult, stool WBC COPD-no exacerbation on 3L home O2 Nebulized treatments q.6 hours MRSA nares pending NSTEMI type 1 versus type 2 EKG shows sinus rhythm, rate controlled Troponin mildly elevated ESRD on hemodialysis with [facility]-Sunday/Sunday/Sunday Hypertensive crisis secondary to missed dialysis Nephrology consultation - per Dr. Saleem patient will be scheduled for hemodialysis tomorrow Ordered epoetin 6000 units SC given iron profile showing low iron, low TIBC, low% saturation, ferritin Patient received IV labetalol for blood pressure control Resumed home medication amlodipine 10 mg daily Holding patient's anticoagulants at this time Follow up with magnesium, phosphorous, vitamin-D, PTH levels DVT prophylaxis: SCDs given anemia Diet: NPO Plan discussed with patient, patient's daughter Adele over the phone in which all questions have been answered Goals of care discussed with patient's daughter over the phone for over 20 minutes, full code status Case discussed with Dr. Morocho. Follow up with CT abdomen, stool occult, GI consultation. Hemodialysis tomorrow. Plan discussed with: Patient, Daughter (Over the phone), Other (Nurse) My Orders Orders - DWAINE HAYS Procedure Category Date Status Time Admit ADMIT 11/21/24 Transmitted 16:19 Iron Panel LAB 11/21/24 Transmitted 16:19 Ferritin LAB 11/21/24 Transmitted 16:19 Date of Service: Nov 21, 2024 Billing Provider: NICOLASA MOROCHO MD Common Visit Codes: [id number] INP/OBS CARE (HIGH) DWAINE HAYS RESIDENT Nov 21, 2024 16:21
[2024-11-21] MEDS: PANTOPRAZOLE 40 MG/10 ML VIAL INJ IV ONE (16:30)
[2024-11-21 16:37] LABS: Iron 26.0 ug/dL (65-175)
[2024-11-21 16:40] LABS: Total Iron Binding Capacity 208.0 ug/dL (250-425)
[2024-11-21] MEDS: SUCRALFATE 1 GM/10 ML ORAL SUSP PO ONE (17:30)
[2024-11-21 18:16] LABS: Magnesium 1.9 mg/dL (1.6-2.6)
[2024-11-21 18:22] LABS: INR 1.25 (0.9-1.15); Partial Thromboplastin Time 41.6 SEC (24.5-34.5); Prothrombin Time 13.0 sec (9.3-11.8)
[2024-11-21] MEDS: IPRATROPIUM BROM 0.5 MG/2.5ML INH SOL ONE (18:26)
[2024-11-21] MEDS: IPRATROPIUM BROM 0.5 MG/2.5ML INH SOL NEB SCH ×2 (18:26→22:00)
[2024-11-21] MEDS: SUCRALFATE 1 GM/10 ML ORAL SUSP PO SCH (21:19)
[2024-11-21] MEDS: EPOETIN ALFA-EPBX 4,000 UNIT/ML VIAL SC ONE (23:55)
[2024-11-22] VITALS (18 sets, daily range): BP systolic 120–158; BP diastolic 54–98; PULSE 80–98; RESP 16–20; TEMP 97.3–99.2; O2SAT 90–100
[2024-11-22 04:53] LABS: Nucleated Red Blood Cells % 0.0 %
[2024-11-22 04:58] LABS: Hematocrit 20.7 % (41.0-53.0); Mean Corpuscular Hemoglobin 31.0 pg (28.0-32.0); Mean Corpuscular Volume 92.0 fL (80.0-100.0)
[2024-11-22 05:04] LABS: Hemoglobin 7.0 g/dL (13.5-17.5)
[2024-11-22 05:13] LABS: Alanine Aminotransferase 45 U/L (7-40); Albumin 3.8 g/dL (3.2-4.8); Alkaline Phosphatase 106 U/L (46-116); Anion Gap 13 (5-15); BUN/Creatinine Ratio 10.6 (10.0-20.0); Bilirubin, Total 0.6 mg/dL (0.2-1.0); Blood Urea Nitrogen 69 mg/dL (9-23); Calcium 9.8 mg/dL (8.7-10.4); Carbon Dioxide 23 mmol/L (20-31); Chloride 98 mmol/L (98-107); Glucose 111 mg/dL (74-106); Potassium 5.5 mmol/L (3.5-5.1); Sodium 134 mmol/L (136-145); Total Protein 6.3 g/dL (5.7-8.2)
[2024-11-22] MEDS: PANTOPRAZOLE 40 MG/10 ML VIAL INJ IV SCH (05:29)
--- NOTE | 2024-11-22 11:15 | DVH ---
CT CT AB PELVIS W WO CON-IV ONLY INDICATION: ACUTE BLOOD LOSS ANEMIA; HX COLON CANCER EXAM DATE: 11/22/2024 10:34 AM COMPARISON: None RADIATION DOSE: CTDIvol: 10.94 mGy, DLP: 992.2 mGy*cm PROCEDURE: Helical CT images were obtained of the abdomen and pelvis with IV contrast Sagittal and co wesley reconstructions are provided. ORAL CONTRAST: None. ADDITIONAL IMAGES / REFORMATS: None All CT s cans at this medical facility are performed using dose modulation techniques as appropriate to a perf ormed exam including the following: Automated exposure control was utilized; adjustment of the MA and /or KV according to patient size; and use of iterative reconstruction technique. FINDINGS: LUNG BASE: Bibasilar atelectasis with small bilateral pleural effusions. Mild interstitial pulmonary edema. LIVER: Punctate granuloma. GALLBLADDER AND BILIARY TREE: No calcified gallstones. Normal caliber wall. No intra- or extrahepatic biliary ductal dilation. PANCREAS: Normal. SPLEEN: Normal. BOWEL: Post surgical changes from bowel resection with a left lower quadrant colostomy and a parastom al hernia. ADRENALS: Normal. KIDNEYS AND URETER: Severe bilateral hydronephrosis. BLADDER: Severe distention. REPRODUCTIVE ORGANS: Normal. LYMPH NODES:No lymphadenopathy. PERITONEUM: No ascites or free air. No other fluid collection. VESSELS: Scattered atherosclerotic calcifications are noted. 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 RETROPERITONEUM: Normal. ABDOMINAL WALL: Normal. BONES: Scattered osseous degenerative changes are noted. IMPRESSION: No hyperdense material seen in the bowel. Severe bladder distention. Severe bilateral hydronephrosis. 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
[2024-11-22] MEDS: SODIUM CHL 0.9% 1000 ML BAG XX ONE (15:14)
[2024-11-22] MEDS: IOHEXOL 300 MG/ML 100ML BOTTLE IJ ONE (15:14)
[2024-11-22 17:09] LABS: Hematocrit 26.1 % (41.0-53.0); Hemoglobin 8.9 g/dL (13.5-17.5); Mean Corpuscular Hemoglobin 30.5 pg (28.0-32.0); Mean Corpuscular Volume 89.5 fL (80.0-100.0); Nucleated Red Blood Cells % 0.0 %
--- NOTE | 2024-11-22 17:35 | DVHINCON2 ---
Date of service: Nov 22, [address] Valenzuela Reason for Consultation ESRD on HD History of Present Illness 78-year-old male with a past medical history ESRD on HD M/W/F, HTN, COPD, colon CA, and dyslipidemia. Presented with chief complaint of generalized weakness x 2 days after HD. Admitted for GI bleed. Last HD on Sunday. Most of history obtained through chart as patient is a poor historian. Upon admission patient presented with a BUN 55, creatinine 5.59, K+ 4.9, hemoglobin 5.8. S/P PRBC transfusion. Pt had dialysis today. Pt states he feels better today. Received consult for ESRD on HD. Past Medical History ESRD on HD, HTN, COPD, colon CA, and dyslipidemia. Past Surgical History bowel resection with colostomy Allergies: Coded Allergies: No Known Drug Allergy (Verified Allergy, Unknown, 11/21/24) Current Medications Current Medications Medications (Trade) Dose Ordered Sig/Delfino Route PRN Reason Start Time Stop Time Status Last Admin Pantoprazole Sodium (Protonix) 40 mg BID@0600,1800 IV 11/22/24 06:00 11/22/24 05:29 Amlodipine Besylate (Norvasc Tablet) 10 mg DAILY PO 11/22/24 10:00 11/22/24 14:26 Ipratropium [place] (Atrovent Medneb) 0.5 mg Q6HWA [facility] 11/21/24 18:00 11/22/24 06:17 Sucralfate (Carafate Susp) 1 gm QID@0600,1130,1700,2200 PO 11/21/24 22:00 11/22/24 05:29 Ipratropium [place] (Atrovent Medneb) 0.5 mg Q6HWA [facility] 11/21/24 22:00 11/22/24 11:20 Family History: Patient reports no known family medical history. Review of Systems Ten systems reviewed and negative except as per HPI H&P Exam Vital Signs/I&O Vital Sign Date Time Temp Pulse Resp B/P (MAP) Pulse Ox O2 Delivery O2 Flow Rate FiO2 11/22/24 14:26 137/74 11/22/24 13:00 98.2 92 16 98 98.2 11/22/24 11:20 Nasal Cannula* 3 32 Intake and Output 11/21/24 11/22/24 19:00 07:00 Intake Total 900 ml 0 ml Output Total 900 ml Balance 900 ml -900 ml Intake Oral 0 ml Blood Product 300 ml Other 600 ml Output Urine Total 900 ml Physical Exam Gen: Appears stated age, NAD HEENT: PERRLA, mucous membranes moist Lungs: Bilateral air entry, CTA Heart: RRR, normal S1 and S2 Abd: soft, normoactive BS, nontender, colostomy Ext: No edema Neuro: Alert and oriented x 2 Labs/Diagnostic Data Labs/Diagnostic Data Laboratory Tests Test 11/22/24 17:00 11/22/24 04:27 11/21/24 20:09 11/21/24 19:45 Range/Units White Blood Count 10.8 13.4 H 4.4-10.8 10^3/uL Red Blood Count 2.92 L 2.25 L 4.5-5.90 10^6/uL Hemoglobin 8.9 #L 7.0 #*L 13.5-17.5 g/dL Hematocrit 26.1 #L 20.7 #L 41.0-53.0 % Mean Corpuscular Volume 89.5 92.0 80.0-100.0 fL Mean Corpuscular Hemoglobin 30.5 31.0 28.0-32.0 pg Mean Corpuscular Hemoglobin Concent 34.0 33.6 32.0-36.0 g/dL Red Cell Distribution Width 19.2 H 17.6 H 11.8-14.3 % Platelet Count 257 244 140-450 10^3/uL Mean Platelet Volume 8.0 8.2 6.9-10.8 fL Neutrophils (%) (Auto) 87.5 H 90.0 H 37.0-80.0 % Lymphocytes (%) (Auto) 6.5 L 4.5 L 10.0-50.0 % Monocytes (%) (Auto) 4.5 4.0 0.0-12.0 % Eosinophils (%) (Auto) 1.0 1.2 0.0-7.0 % Basophils (%) (Auto) 0.5 0.3 0.0-2.0 % Neutrophils # (Auto) 9.5 H 12.1 H 1.6-8.6 10 ^3/uL Lymphocytes # (Auto) 0.7 0.6 0.4-5.4 10 ^3/uL Monocytes # (Auto) 0.5 0.5 0-1.3 10 ^3/uL Eosinophils # (Auto) 0.1 0.2 0-0.8 10 ^3/uL Basophils # (Auto) 0.1 0 0-0.2 10 ^3/uL Nucleated Red Blood Cells 0.0 0.0 % Sodium Level 134 L 136-145 mmol/L Potassium Level 5.5 H 3.5-5.1 mmol/L Chloride Level 98 98-107 mmol/L Carbon Dioxide Level 23 20-31 mmol/L Anion Gap 13 5-15 Blood Urea Nitrogen 69 #H 9-23 mg/dL Creatinine 6.50 H 0.700-1.30 mg/dL Glomerular Filtration Rate Calc 8 >90 mL/min BUN/Creatinine Ratio 10.6 10.0-20.0 Serum Glucose 111 H 74-106 mg/dL Calcium Level 9.8 8.7-10.4 mg/dL Total Bilirubin 0.6 0.2-1.0 mg/dL Aspartate Amino Transferase (AST) 33 13-40 U/L Alanine Aminotransferase (ALT) 45 H 7-40 U/L Alkaline Phosphatase 106 46-116 U/L Total Protein 6.3 5.7-8.2 g/dL Albumin 3.8 3.2-4.8 g/dL Stool Occult Blood Positive Negative Stool Occult Blood Sample #3 Negative Stool for White Cells Few Ammonia < 10 L 11-32 umol/L Vitamin D 25-Hydroxy 52.8 30.0-100 ng/mL Test 11/21/24 15:56 11/21/24 14:56 11/21/24 13:05 11/21/24 11:46 Range/Units Prothrombin Time 13.0 H 9.3-11.8 sec Prothrombin Time INR 1.25 H 0.9-1.15 Activated Partial Thromboplast Time 41.6 H 24.5-34.5 SEC Troponin I High Sensitivity 61 *H 58 *H </=54 ng/L POC Glucose 146 H 70-106 mg/dl Test 11/21/24 11:36 Range/Units White Blood Count 12.3 H 4.4-10.8 10^3/uL Red Blood Count 1.89 L 4.5-5.90 10^6/uL Hemoglobin 5.8 *L 13.5-17.5 g/dL Hematocrit 17.9 L 41.0-53.0 % Mean Corpuscular Volume 94.5 80.0-100.0 fL Mean Corpuscular Hemoglobin 30.4 28.0-32.0 pg Mean Corpuscular Hemoglobin Concent 32.1 32.0-36.0 g/dL Red Cell Distribution Width 17.4 H 11.8-14.3 % Platelet Count 267 140-450 10^3/uL Mean Platelet Volume 8.0 6.9-10.8 fL Neutrophils (%) (Auto) 87.5 H 37.0-80.0 % Lymphocytes (%) (Auto) 5.1 L 10.0-50.0 % Monocytes (%) (Auto) 4.9 0.0-12.0 % Eosinophils (%) (Auto) 2.1 0.0-7.0 % Basophils (%) (Auto) 0.4 0.0-2.0 % Neutrophils # (Auto) 10.8 H 1.6-8.6 10 ^3/uL Lymphocytes # (Auto) 0.6 0.4-5.4 10 ^3/uL Monocytes # (Auto) 0.6 0-1.3 10 ^3/uL Eosinophils # (Auto) 0.3 0-0.8 10 ^3/uL Basophils # (Auto) 0 0-0.2 10 ^3/uL Nucleated Red Blood Cells 0.1 % Sodium Level 133 L 136-145 mmol/L Potassium Level 4.9 3.5-5.1 mmol/L Chloride Level 96 L 98-107 mmol/L Carbon Dioxide Level 26 20-31 mmol/L Anion Gap 11 5-15 Blood Urea Nitrogen 59 H 9-23 mg/dL Creatinine 5.59 H 0.700-1.30 mg/dL Glomerular Filtration Rate Calc 10 >90 mL/min BUN/Creatinine Ratio 10.6 10.0-20.0 Serum Glucose 151 H 74-106 mg/dL Hemoglobin A1c < 3.8 <5.7 % A1C Lactic Acid Level 1.4 0.4-2.0 mmol/L Calcium Level 10.1 8.7-10.4 mg/dL Phosphorus Level 2.2 L 2.4-5.1 mg/dL Magnesium Level 1.9 1.6-2.6 mg/dL Iron Level 26 L 65-175 ug/dL Total Iron Binding Capacity 208 L 250-425 ug/dL Percent Iron Saturation 12.5 L 20-55 % Ferritin 869.1 H 22-322 ng/mL Total Bilirubin 0.4 0.2-1.0 mg/dL Aspartate Amino Transferase (AST) 42 H 13-40 U/L Alanine Aminotransferase (ALT) 57 H 7-40 U/L Alkaline Phosphatase 109 46-116 U/L Troponin I High Sensitivity 62 *H </=54 ng/L Total Protein 6.9 5.7-8.2 g/dL Albumin 4.2 3.2-4.8 g/dL Thyroid Stimulating Hormone (TSH) 2.27 0.55-4.78 uIU/mL Parathyroid Hormone (Intact) 123.5 H 18.4-80.1 pg/mL Microbiology Date/Time Source Procedure Growth Status 11/22/24 06:00 Nose MRSA Screen - Final Complete Plan/Recommendation IMP 1. ESRD on HD- last HD 11/22 2. HTN 3. hx of COPD 4. Anemia s/p PRBC transfusion REC - Pt had dialysis today. Next HD tentatively scheduled 11/24 - Strict I&Os - Chemistry panel - Blood pressure control - GI consult pending - Will continue to follow Plan discussed with: Patient EVELINE EHRNANDEZ PARKING METER ATTENDANT Nov 22, 2024 17:35
--- NOTE | 2024-11-22 18:49 | DVHPN2 ---
Subjective I am assuming the care of the patient from today onwards. Patient denies any complaints. Changes from previous H/P or p: No Changes Objective Vitals Vital Signs Date Time Temp Pulse Resp B/P (MAP) Pulse Ox O2 Delivery O2 Flow Rate FiO2 11/22/24 17:49 89 16 100 11/22/24 14:26 137/74 11/22/24 13:00 98.2 98.2 11/22/24 11:20 Nasal Cannula* 3 32 Intake/Output Intake and Output 11/22/24 07:00 Intake Total 900 ml Output Total 900 ml Balance 0 ml Intake Oral 0 ml Blood Product 300 ml Other 600 ml Output Urine Total 900 ml Exam HEENT pupils are reactive Neck is supple CV is S1-S2 regular rate and rhythm Respiratory diminished breath sounds bases GI positive bowel sound , positive colostomy Extremity no edema DIRECTOR 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 HEADACHE PROGRAM no motor deficit Medications Current Medications Medications Dose Ordered Sig/Delfino Route Start Time Stop Time Status Last Admin Dose Admin Pantoprazole Sodium 40 mg BID@0600,1800 IV 11/22/24 06:00 11/22/24 17:27 40 MG Amlodipine Besylate 10 mg DAILY PO 11/22/24 10:00 11/22/24 14:26 10 MG Ipratropium [place] 0.5 mg Q6HWA NEB 11/21/24 18:00 11/22/24 17:47 0.5 MG Sucralfate 1 gm QID@0600,1130,1700,2200 PO 11/21/24 22:00 11/22/24 17:26 1 GM Ipratropium [place] 0.5 mg Q6HWA NEB 11/21/24 22:00 11/22/24 11:20 0.5 MG Laboratory Results Laboratory Tests 11/22/24 04:27 11/22/24 17:00 Chemistry Test 11/22/24 04:27 Albumin 3.8 g/dL (3.2-4.8) Calcium Level 9.8 mg/dL (8.7-10.4) Total Protein 6.3 g/dL (5.7-8.2) LFT Test 11/22/24 04:27 Alanine Aminotransferase (ALT) 45 U/L (7-40) H Alkaline Phosphatase 106 U/L (46-116) Aspartate Amino Transferase (AST) 33 U/L (13-40) Total Bilirubin 0.6 mg/dL (0.2-1.0) Microbiology Microbiology Date/Time Source Procedure Growth Status 11/22/24 06:00 Nose MRSA Screen - Final Complete Assessment/Plan Assessment/Plan 78-year-old male with a known history of colon cancer status post partial colectomy status post oral chemotherapy currently in remission, end-stage renal disease on hemodialysis, hypertension, COPD initially presented to hospital with a black tarry stools found to have 1. Melanotic stools rule out upper GI bleed, status post 2 units of packed RBC 2. History of colon cancer status post partial colectomy status post chemotherapy, status post colostomy 3. End-stage renal disease on hemodialysis 4. Hypertension 5. COPD -monitor H&H, continue Protonix follow up GI recommendations Plan discussed with: Patient My Orders Orders - BRIE BOLAND MD Procedure Category Date Status Time Renal DIET 11/22/24 Transmitted Standard(2gna,3gk,Lopho) Dinner Date of Service: Nov 22, 2024 Billing Provider: BRIE BOLAND MD Common Visit Codes: [id number] INP/OBS CARE(MOD) BRIE BOLAND MD Nov 22, 2024 18:49
--- NOTE | 2024-11-22 18:59 | ECG ---
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
[2024-11-23] VITALS (15 sets, daily range): BP systolic 123–173; BP diastolic 47–81; PULSE 89–105; RESP 16–20; TEMP 97.9–99.8; O2SAT 90–100
[2024-11-23 08:06] LABS: Anion Gap 15 (5-15); Calcium 10.1 mg/dL (8.7-10.4); Carbon Dioxide 26 mmol/L (20-31); Potassium 4.1 mmol/L (3.5-5.1)
[2024-11-23 08:10] LABS: Chloride 95 mmol/L (98-107); Sodium 136 mmol/L (136-145)
[2024-11-23 08:12] LABS: BUN/Creatinine Ratio 8.7 (10.0-20.0); Glucose 104 mg/dL (74-106)
[2024-11-23 08:15] LABS: Blood Urea Nitrogen 39 mg/dL (9-23)
[2024-11-23 08:15] LABS: Amphetamine Screen, Urine Neg (NEGATIVE); Barbiturate Scree,Urine Neg (NEGATIVE); Benzodiazephine Screen, Urine Neg (NEGATIVE); Cannabinoid Screen, Urine Neg (NEGATIVE); Cocaine Screen, Urine Neg (NEGATIVE); Opiate Scree,Urine Neg (NEGATIVE); Phencyclidine Screen, Urine Neg (NEGATIVE)
[2024-11-23 08:32] LABS: Urine Amorphous Crystal FEW /hpf (None Seen); Urine Protein, UAD 2+ (Negative); Urine WBC Clumps PRESENT /hpf (None Seen)
[2024-11-23 08:43] LABS: Uric Acid 4.4 mg/dL (3.7-9.2)
[2024-11-23] MEDS: hydrALAZINE HCL 20 MG/ML VL IV PRN (09:34)
--- NOTE | 2024-11-23 17:52 | DVHPN2 ---
Subjective Patient's daughter at bedside updated regarding current plan of care. Changes from previous H/P or p: No Changes Objective Vitals Vital Signs Date Time Temp Pulse Resp B/P (MAP) Pulse Ox O2 Delivery O2 Flow Rate FiO2 11/23/24 16:58 98.1 102 19 123/65 (84) 97 98.1 11/23/24 11:19 Nasal Cannula 3.0 11/23/24 11:19 32 Intake/Output Intake and Output 11/23/24 07:00 Intake Total 1320 ml Output Total 1570 ml Balance -250 ml Intake Oral 760 ml Blood Product 280 ml Other 280 ml Output Urine Total 1570 ml Exam HEENT pupils are reactive Neck is supple CV is S1-S2 regular rate and rhythm Respiratory diminished breath sounds bases GI positive bowel sound , positive colostomy 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 Medications Current Medications Medications Dose Ordered Sig/Delfino Route Start Time Stop Time Status Last Admin Dose Admin Pantoprazole Sodium 40 mg BID@0600,1800 IV 11/22/24 06:00 11/23/24 06:02 40 MG Amlodipine Besylate 10 mg DAILY PO 11/22/24 10:00 11/23/24 08:24 10 MG Sucralfate 1 gm QID@0600,1130,1700,2200 PO 11/21/24 22:00 11/23/24 12:06 1 GM Ipratropium [place] 0.5 mg Q6HWA NEB 11/21/24 22:00 11/23/24 11:19 0.5 MG Hydralazine HCl 10 mg Q4HP PRN IV 11/23/24 09:15 11/23/24 09:34 10 MG Pantoprazole Sodium 40 mg BID IV 11/23/24 22:00 Laboratory Results Laboratory Tests 11/22/24 17:00 11/23/24 06:20 Chemistry Test 11/23/24 06:20 Calcium Level 10.1 mg/dL (8.7-10.4) Urinalysis Test 11/23/24 05:50 Urine Color Yellow (Yellow) Urine Clarity Cloudy (Clear) H Urine pH 8.5 (5.0-9.0) Urine Specific [place] 1.008 (1.001-1.035) Urine Protein 2+ (Negative) H Urine Ketones Negative (Negative) Urine Blood 3+ /uL (Negative) H Urine Nitrite Negative (Negative) Urine Bilirubin Negative (Negative) Urine Urobilinogen Normal mg/dL (Negative) Urine Leukocyte Esterase 3+ /uL (Negative) Urine RBC 64 /hpf (0 - 3) Urine WBC Clumps Present /hpf (None Seen) Urine Microscopic WBC 1489 /HPF (0-3) H Urine Squamous Epithelial Cells None seen /hpf (<5) Urine Amorphous Crystals Few /hpf (None Seen) Urine Bacteria Few /hpf (None Seen) H Urine Glucose Normal mg/dL (Normal) Microbiology Microbiology Date/Time Source Procedure Growth Status 11/22/24 06:00 Nose MRSA Screen - Final Complete Assessment/Plan Assessment/Plan 78-year-old male with a known history of colon cancer status post partial colectomy status post oral chemotherapy currently in remission, end-stage renal disease on hemodialysis, hypertension, COPD initially presented to hospital with a black tarry stools found to have 1. Melanotic stools rule out upper GI bleed, status post 2 units of packed RBC 2. History of colon cancer status post partial colectomy status post chemotherapy, status post colostomy 3. End-stage renal disease on hemodialysis 4. Hypertension 5. COPD -monitor H&H, continue Protonix follow up GI recommendations Plan discussed with: Patient, Daughter My Orders Orders - BRIE BOLAND MD Procedure Category Date Status Time Hydralazine Injection PHA 11/23/24 In Process (Apresoline Inject 09:15 Cover Wound With Foam SONJA 11/23/24 In Process Dressing 13:24 Pantoprazole PHA 11/23/24 In Process (Protonix) 22:00 Npo (Nothing By DIET 11/24/24 Transmitted Mouth) Diet Breakfast Complete Blood Count LAB 11/24/24 Verified 05:00 Comprehensive LAB 11/24/24 Verified Metabolic Panel 05:00 Prothrombin Time W/ LAB 11/24/24 Verified INR 05:00 Date of Service: Nov 23, 2024 Billing Provider: BRIE BOLAND MD Common Visit Codes: [id number] INP/OBS CARE(MOD) BRIE BOLAND MD Nov 23, 2024 17:52
--- NOTE | 2024-11-23 18:28 | DVHPN2 ---
Progress Note Date Seen: Nov 23, 2024 Medical Necessity Reason Pt with a Central, PICC or Fol: Yes The following are medically ne: Ashraf Catheter Subjective Review of Systems The patient resting in bed. Patient reports: No new complaints Objective vital signs Vital Sign Date Time Temp Pulse Resp B/P (MAP) Pulse Ox O2 Delivery O2 Flow Rate FiO2 11/23/24 18:21 100 16 100 11/23/24 18:16 Nasal Cannula 3.0 11/23/24 18:16 32 11/23/24 16:58 98.1 123/65 (84) 98.1 Total Intake and Output 11/22/24 11/22/24 11/23/24 15:00 23:00 07:00 Intake Total 560 ml 360 ml 400 ml Output Total 600 ml 970 ml Balance 560 ml -240 ml -570 ml medications Current Medications Medications Dose Ordered Sig/Delfino Route Start Time Stop Time Status Last Admin Dose Admin Pantoprazole Sodium 40 mg BID@0600,1800 IV 11/22/24 06:00 11/23/24 06:02 40 MG Amlodipine Besylate 10 mg DAILY PO 11/22/24 10:00 11/23/24 08:24 10 MG Sucralfate 1 gm QID@0600,1130,1700,2200 PO 11/21/24 22:00 11/23/24 12:06 1 GM Ipratropium [place] 0.5 mg Q6HWA NEB 11/21/24 22:00 11/23/24 18:16 0.5 MG Hydralazine HCl 10 mg Q4HP PRN IV 11/23/24 09:15 11/23/24 09:34 10 MG Pantoprazole Sodium 40 mg BID IV 11/23/24 22:00 Examination Gen: NAD Lungs: Bilateral air entry, CTA Heart: RRR, normal S1 and S2 Abd: Soft, nondistended, normoactive bowel sounds Ext: No edema Neuro: Alert and oriented x2 laboratory and microbiology Laboratory Tests 11/23/24 06:20 11/22/24 17:00 Test 11/23/24 06:20 Range/Units Serum Glucose 104 74-106 mg/dL Microbiology Date/Time Source Procedure Growth Status 11/22/24 06:00 Nose MRSA Screen - Final Complete Labs and/or images reviewed: Labs reviewed by me Problem List/Assessment/Plan Problem List/Assessment/Plan IMP 1. ESRD on HD- last HD 11/22 2. HTN 3. hx of COPD 4. Anemia s/p PRBC transfusion REC - HD tentatively 11/24 - Strict I&Os - Chemistry panel - Blood pressure control - GI consult pending - Will continue to follow Plan discussed with: Patient CC Plasma Assessment Blood Product Administration S: [id number] EVELINE HERNANDEZ Nov 23, 2024 18:28
[2024-11-23] MEDS: PANTOPRAZOLE 40 MG/10 ML VIAL INJ IV SCH (21:11)
[2024-11-24] VITALS (14 sets, daily range): BP systolic 105–139; BP diastolic 42–83; PULSE 85–123; RESP 14–20; TEMP 97.1–99; O2SAT 94–100
[2024-11-24 07:19] LABS: Hematocrit 25.1 % (41.0-53.0); Hemoglobin 8.4 g/dL (13.5-17.5); Mean Corpuscular Hemoglobin 30.0 pg (28.0-32.0); Mean Corpuscular Volume 89.8 fL (80.0-100.0); Nucleated Red Blood Cells % 0.0 %
[2024-11-24 07:31] LABS: INR 1.28 (0.9-1.15); Prothrombin Time 13.2 sec (9.3-11.8)
[2024-11-24 07:36] LABS: Alanine Aminotransferase 36 U/L (7-40); Albumin 3.7 g/dL (3.2-4.8); Anion Gap 13 (5-15); BUN/Creatinine Ratio 8.1 (10.0-20.0); Bilirubin, Total 0.6 mg/dL (0.2-1.0); Calcium 9.6 mg/dL (8.7-10.4); Carbon Dioxide 26 mmol/L (20-31); Glucose 92 mg/dL (74-106); Potassium 4.5 mmol/L (3.5-5.1); Total Protein 6.3 g/dL (5.7-8.2)
[2024-11-24 07:37] LABS: Alkaline Phosphatase 123 U/L (46-116); Blood Urea Nitrogen 50 mg/dL (9-23); Chloride 96 mmol/L (98-107); Sodium 135 mmol/L (136-145)
[2024-11-24 10:08] LABS: Hepatitis B Surface Antigen Negative (Negative)
--- NOTE | 2024-11-24 15:44 | DVHPN2 ---
Progress Note Date Seen: Nov 24, 2024 Medical Necessity Reason Pt with a Central, PICC or Fol: Yes The following are medically ne: Ashraf Catheter Subjective Patient reports: No new complaints Review of Systems: Deferred Objective vital signs Vital Sign Date Time Temp Pulse Resp B/P (MAP) Pulse Ox O2 Delivery O2 Flow Rate FiO2 11/24/24 12:00 97.1 100 18 132/65 (87) 96 97.1 11/24/24 09:31 Nasal Cannula* 1 24 Total Intake and Output 11/23/24 11/23/24 11/24/24 15:00 23:00 07:00 Intake Total 390 ml 0 ml Output Total 300 ml 250 ml Balance 90 ml -250 ml medications Current Medications Medications Dose Ordered Sig/Delfino Route Start Time Stop Time Status Last Admin Dose Admin Pantoprazole Sodium 40 mg BID@0600,1800 IV 11/22/24 06:00 11/24/24 05:14 40 MG Amlodipine Besylate 10 mg DAILY PO 11/22/24 10:00 11/23/24 08:24 10 MG Sucralfate 1 gm QID@0600,1130,1700,2200 PO 11/21/24 22:00 11/23/24 21:11 1 GM Ipratropium [place] 0.5 mg Q6HWA NEB 11/21/24 22:00 11/24/24 06:46 0.5 MG Hydralazine HCl 10 mg Q4HP PRN IV 11/23/24 09:15 11/23/24 09:34 10 MG Pantoprazole Sodium 40 mg BID IV 11/23/24 22:00 11/24/24 10:15 40 MG laboratory and microbiology Laboratory Tests 11/24/24 05:34 Test 11/24/24 05:34 Range/Units Serum Glucose 92 74-106 mg/dL Microbiology Date/Time Source Procedure Growth Status 11/22/24 06:00 Nose MRSA Screen - Final Complete Problem List/Assessment/Plan Problem List/Assessment/Plan 1. ESRD on HD- last HD 11/22 2. HTN 3. hx of COPD 4. Anemia s/p PRBC transfusion recs HD today Plan discussed with: Patient My Orders My Orders Orders - GERMAN WATERMAN MD Procedure Category Date Status Time Hemodialysis Orders ORDERS 11/24/24 Transmitted 10:24 CC Plasma Assessment Blood Product Administration S: [id number] GERMAN WATERMAN MD Nov 24, 2024 15:44
--- NOTE | 2024-11-24 16:41 | DVHPN2 ---
Subjective Patient's has been evaluated by GI currently scheduled for possible EGD tomorrow. 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 Medications Current Medications Medications Dose Ordered Sig/Delfino Route Start Time Stop Time Status Last Admin Dose Admin Pantoprazole Sodium 40 mg BID@0600,1800 IV 11/22/24 06:00 11/24/24 05:14 40 MG Amlodipine Besylate 10 mg DAILY PO 11/22/24 10:00 11/23/24 08:24 10 MG Sucralfate 1 gm QID@0600,1130,1700,2200 PO 11/21/24 22:00 11/23/24 21:11 1 GM Ipratropium [place] 0.5 mg Q6HWA NEB 11/21/24 22:00 11/24/24 06:46 0.5 MG Hydralazine HCl 10 mg Q4HP PRN IV 11/23/24 09:15 11/23/24 09:34 10 MG Pantoprazole Sodium 40 mg BID IV 11/23/24 22:00 11/24/24 10:15 40 MG Laboratory Results Laboratory Tests 11/24/24 05:34 Chemistry Test 11/24/24 05:34 Albumin 3.7 g/dL (3.2-4.8) Calcium Level 9.6 mg/dL (8.7-10.4) Total Protein 6.3 g/dL (5.7-8.2) Coagulation Test 11/24/24 05:34 Prothrombin Time 13.2 sec (9.3-11.8) H Prothrombin Time INR 1.28 (0.9-1.15) H LFT Test 11/24/24 05:34 Alanine Aminotransferase (ALT) 36 U/L (7-40) Alkaline Phosphatase 123 U/L (46-116) H Aspartate Amino Transferase (AST) 32 U/L (13-40) Total Bilirubin 0.6 mg/dL (0.2-1.0) Urinalysis Test 11/23/24 05:50 Urine Color Yellow (Yellow) Urine Clarity Cloudy (Clear) H Urine pH 8.5 (5.0-9.0) Urine Specific [place] 1.008 (1.001-1.035) Urine Protein 2+ (Negative) H Urine Ketones Negative (Negative) Urine Blood 3+ /uL (Negative) H Urine Nitrite Negative (Negative) Urine Bilirubin Negative (Negative) Urine Urobilinogen Normal mg/dL (Negative) Urine Leukocyte Esterase 3+ /uL (Negative) Urine RBC 64 /hpf (0 - 3) Urine WBC Clumps Present /hpf (None Seen) Urine Microscopic WBC 1489 /HPF (0-3) H Urine Squamous Epithelial Cells None seen /hpf (<5) Urine Amorphous Crystals Few /hpf (None Seen) Urine Bacteria Few /hpf (None Seen) H Urine Glucose Normal mg/dL (Normal) Microbiology Microbiology Date/Time Source Procedure Growth Status 11/22/24 06:00 Nose MRSA Screen - Final Complete Assessment/Plan Assessment/Plan 78-year-old male with a known history of colon cancer status post partial colectomy status post oral chemotherapy currently in remission, end-stage renal disease on hemodialysis, hypertension, COPD initially presented to hospital with a black tarry stools found to have 1. Melanotic stools rule out upper GI bleed, status post 2 units of packed RBC 2. History of colon cancer status post partial colectomy status post chemotherapy, status post colostomy 3. End-stage renal disease on hemodialysis 4. Hypertension 5. COPD -monitor H&H, continue Protonix follow up GI recommendations , possible EGD in a.m. Plan discussed with: Patient Date of Service: Nov 24, 2024 Billing Provider: BRIE BOLAND MD Common Visit Codes: [id number] INP/OBS CARE(MOD) BRIE BOLAND MD Nov 24, 2024 16:41
--- NOTE | 2024-11-24 18:18 | DVHCONRES ---
Date Seen: Nov 24, 2024 Resident Creating Document: ROBLES SWEENEY RESIDENT Referring Physician BRIE BOLAND MD Reason for Consultation possible Acute GI bleeding, Hx of colon CA History of Present Illness 78-year-old male with significant history of colon cancer s/p partial colectomy and colostomy, prior oral chemotherapy (currently in remission), end-stage renal disease (ESRD) on hemodialysis, COPD, and hypertension, presented with black tarry stools (melena) and left upper quadrant abdominal discomfort. He also repo rted a fall at home prior to admission. On admission, Hgb 5.8 g/dL, received 2 units PRBC, and now stable at 8.4 g/dL. Stool occult blood positive. No current nausea, vomiting, hematemesis, abdominal distension, or hematochezia. Colostomy output minimal, no active bleeding. Patient denies NSAID or alcohol use. Clinical Progress (Today) * Post-transfusion, patient is hemodynamically stable. * Labs: Hgb 8.4, Hct 25.1, Plt 225K, INR 1.28, BUN 50, Cr 6.17, positive stool occult blood, urine analysis showing leukocytosis and hematuria, mild hyperkalemia corrected. * Imaging: * Chest X-ray: Cardiomegaly, mild pulmonary vascular congestion, right tunneled central line in place, no effusion/pneumothorax. * CT Abdomen/Pelvis: Post-surgical changes with LLQ colostomy and parastomal hernia; severe bilateral hydronephrosis, severe bladder distension, severe left external iliac artery stenosis; bibasilar atelectasis, mild pulmonary edema; no active intra-abdominal bleeding. * Vital signs: BP 129/83, HR 107, SpO? 96% on 1L O?. * Physical exam: Soft abdomen, mild LUQ tenderness, colostomy intact without active bleeding. 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 Family History No significant family history Social History Denies drugs, smoking abuse Allergies: Coded Allergies: No Known Drug Allergy (Verified Allergy, Unknown, 11/21/24) Home Meds No home medications reported Current Medications Current Medications Medications (Trade) Dose Ordered Sig/Delfino Route PRN Reason Start Time Stop Time Status Last Admin Pantoprazole Sodium (Protonix) 40 mg BID IV 11/23/24 22:00 11/24/24 10:15 Review of Systems * GI: Prior melena, mild LUQ tenderness. Denies hematemesis, nausea, vomiting. * Constitutional: Weakness improved after transfusion. * Pulmonary: Stable, mild dyspnea on exertion. * Other systems: Non-contributory for GI consult. Vital Signs Vital Signs Date Time Temp Pulse Resp B/P (MAP) Pulse Ox O2 Delivery O2 Flow Rate FiO2 11/24/24 16:00 98.9 107 20 129/83 (98) 96 98.9 11/24/24 09:31 Nasal Cannula* 1 24 Physical Exam * General: Alert, oriented, no acute distress. * Abdomen: Soft, mildly tender LUQ, non-distended, bowel sounds present. Colostomy bag intact, minimal output, no fresh blood. * Cardiovascular: Regular rhythm, mild tachycardia. * Pulmonary: Clear to auscultation with bibasilar crackles. * Other: Stable. Labs/Diagnostic Data Labs Test 11/24/24 05:34 11/23/24 06:20 11/23/24 05:50 11/22/24 04:27 Range/Units White Blood Count 12.7 H 4.4-10.8 10^3/uL Red Blood Count 2.79 L 4.5-5.90 10^6/uL Hemoglobin 8.4 L 13.5-17.5 g/dL Hematocrit 25.1 L 41.0-53.0 % Mean Corpuscular Volume 89.8 80.0-100.0 fL Mean Corpuscular Hemoglobin 30.0 28.0-32.0 pg Mean Corpuscular Hemoglobin Concent 33.4 32.0-36.0 g/dL Red Cell Distribution Width 18.6 H 11.8-14.3 % Platelet Count 225 140-450 10^3/uL Mean Platelet Volume 8.3 6.9-10.8 fL Neutrophils (%) (Auto) 86.4 H 37.0-80.0 % Lymphocytes (%) (Auto) 5.5 L 10.0-50.0 % Monocytes (%) (Auto) 6.3 0.0-12.0 % Eosinophils (%) (Auto) 1.5 0.0-7.0 % Basophils (%) (Auto) 0.3 0.0-2.0 % Neutrophils # (Auto) 11.0 H 1.6-8.6 10 ^3/uL Lymphocytes # (Auto) 0.7 0.4-5.4 10 ^3/uL Monocytes # (Auto) 0.8 0-1.3 10 ^3/uL Eosinophils # (Auto) 0.2 0-0.8 10 ^3/uL Basophils # (Auto) 0 0-0.2 10 ^3/uL Nucleated Red Blood Cells 0.0 % Prothrombin Time 13.2 H 9.3-11.8 sec Prothrombin Time INR 1.28 H 0.9-1.15 Sodium Level 135 L 136-145 mmol/L Potassium Level 4.5 3.5-5.1 mmol/L Chloride Level 96 L 98-107 mmol/L Carbon Dioxide Level 26 20-31 mmol/L Anion Gap 13 5-15 Blood Urea Nitrogen 50 #H 9-23 mg/dL Creatinine 6.17 H 0.700-1.30 mg/dL Glomerular Filtration Rate Calc 9 >90 mL/min BUN/Creatinine Ratio 8.1 L 10.0-20.0 Serum Glucose 92 74-106 mg/dL Calcium Level 9.6 8.7-10.4 mg/dL Total Bilirubin 0.6 0.2-1.0 mg/dL Aspartate Amino Transferase (AST) 32 13-40 U/L Alanine Aminotransferase (ALT) 36 7-40 U/L Alkaline Phosphatase 123 H 46-116 U/L Total Protein 6.3 5.7-8.2 g/dL Albumin 3.7 3.2-4.8 g/dL Uric Acid 4.4 3.7-9.2 mg/dL Urine Color Yellow Yellow Urine Clarity Cloudy H Clear Urine pH 8.5 5.0-9.0 Urine Specific [place] 1.008 1.001-1.035 Urine Protein 2+ H Negative Urine Ketones Negative Negative Urine Blood 3+ H Negative /uL Urine Nitrite Negative Negative Urine Bilirubin Negative Negative Urine Urobilinogen Normal Negative mg/dL Urine Leukocyte Esterase 3+ Negative /uL Urine RBC 64 0 - 3 /hpf Urine WBC Clumps Present None Seen /hpf Urine Microscopic WBC 1489 H 0-3 /HPF Urine Squamous Epithelial Cells None seen <5 /hpf Urine Amorphous Crystals Few None Seen /hpf Urine Bacteria Few H None Seen /hpf Urine Glucose Normal Normal mg/dL Urine Opiates Screen Neg NEGATIVE Urine Fentanyl Screen Neg NEGATIVE Urine Barbiturates Screen Neg NEGATIVE Urine Phencyclidine Screen Neg NEGATIVE Urine Amphetamines Screen Neg NEGATIVE Urine Benzodiazepines Screen Neg NEGATIVE Urine Cocaine Screen Neg NEGATIVE Urine Cannabinoids Screen Neg NEGATIVE Hepatitis B Surface Antigen Negative Negative Hepatitis B Surface Antibody Negative Negative Test 11/21/24 20:09 11/21/24 19:45 11/21/24 15:56 11/21/24 14:56 Range/Units Stool Occult Blood Positive Negative Stool Occult Blood Sample #3 Negative Stool for White Cells Few Ammonia < 10 L 11-32 umol/L Vitamin D 25-Hydroxy 52.8 30.0-100 ng/mL Activated Partial Thromboplast Time 41.6 H 24.5-34.5 SEC Troponin I High Sensitivity 61 *H </=54 ng/L Test 11/21/24 11:46 11/21/24 11:36 Range/Units POC Glucose 146 H 70-106 mg/dl Hemoglobin A1c < 3.8 <5.7 % A1C Lactic Acid Level 1.4 0.4-2.0 mmol/L Phosphorus Level 2.2 L 2.4-5.1 mg/dL Magnesium Level 1.9 1.6-2.6 mg/dL Iron Level 26 L 65-175 ug/dL Total Iron Binding Capacity 208 L 250-425 ug/dL Percent Iron Saturation 12.5 L 20-55 % Ferritin 869.1 H 22-322 ng/mL Vitamin B12 Level 452 211-911 pg/mL Thyroid Stimulating Hormone (TSH) 2.27 0.55-4.78 uIU/mL Parathyroid Hormone (Intact) 123.5 H 18.4-80.1 pg/mL Microbiology Date/Time Source Procedure Growth Status 11/22/24 06:00 Nose MRSA Screen - Final Complete Assessment Assessment 1. Acute Upper GI Bleeding (Melena) * Evidence: Black tarry stools, positive FOBT, Hgb drop to 5.8 (improved to 8.4 post-transfusion). * Likely Etiologies: Peptic ulcer disease, erosive gastritis, angiodysplasia, upper GI malignancy recurrence, AVM. 2. History of Colon Cancer * Status post partial colectomy with colostomy and parastomal hernia; currently in remission. 3. Anemia Secondary to Acute GI Blood Loss * Improved post-transfusion, currently stable. 4. End-Stage Renal Disease on Hemodialysis * Last HD on 11/22; needs coordination with GI procedure. 5. Pulmonary Findings * Mild pulmonary edema and bibasilar atelectasis; CXR shows cardiomegaly and vascular congestion. 6. Severe Bilateral Hydronephrosis and Bladder Distension * Seen on CT; requires urology follow-up. Problems(with codes): (1) Acute upper GI bleed (2) History of colon cancer (3) Anemia (4) ESRD (end stage renal disease) on dialysis (5) End-stage renal disease on hemodialysis (6) Symptomatic anemia Plan/Recommendation Plan GI-Specific Plan * EGD scheduled for tomorrow morning to localize and treat the bleeding source. * Maintain clear liquid diet today, NPO after midnight. * Continue IV PPI (Pantoprazole 40 mg IV BID). * Continue Sucralfate for mucosal protection. * Monitor H&H q8h, transfuse PRBCs for Hgb <7 or if unstable. * Avoid anticoagulation and NSAIDs until post-EGD evaluation. * Prepare for possible therapeutic intervention during endoscopy. Case discussed in detail with the attending physician, including the clinical presentation, diagnostic workup, and comprehensive management plan. The patient was present for the discussion and demonstrated understanding of his condition and the proposed plan. Plan discussed with: Patient ROBLES SWEENEY RESIDENT Nov 24, 2024 18:18
[2024-11-25] VITALS (18 sets, daily range): BP systolic 141–154; BP diastolic 62–72; PULSE 60–122; RESP 14–72; TEMP 98.2–99.8; O2SAT 91–100
[2024-11-25] MEDS: SODIUM CHLORIDE 0.9% 250 ML IV ONE (06:15)
[2024-11-25 09:29] LABS: Base Excess 1.0 mmol/L (-2.0-3.0)
[2024-11-25 09:54] LABS: Alanine Aminotransferase 31 U/L (7-40); Albumin 4.3 g/dL (3.2-4.8); Anion Gap 17 (5-15); BUN/Creatinine Ratio 7.6 (10.0-20.0); Bilirubin, Total 0.8 mg/dL (0.2-1.0); Calcium 9.9 mg/dL (8.7-10.4); Carbon Dioxide 25 mmol/L (20-31); Potassium 4.2 mmol/L (3.5-5.1); Sodium 140 mmol/L (136-145); Total Protein 7.3 g/dL (5.7-8.2)
--- NOTE | 2024-11-25 09:58 | DVH ---
US KIDNEY HISTORY: hydronephrosis COMPARISON: None TECHNIQUE: Transverse and longitudinal grayscale and color doppler images were obtained of the kidney s and bladder. FINDINGS: Right kidney: Size: 10.0 cm Cortical thickness: Decreased Echogenicity: Increased Stones: None Masses: None Hydronephrosis: None Ureters: Not well visualized. Other: None Left kidney: Size: 9.8 cm Cortical thickness: Decreased Echogenicity: Increased Stones: None Masses: None Hydronephrosis: None Ureters: Not well visualized. Other: None Bladder: Ashraf Other: None. IMPRESSION: Prominent bilateral renal pyramids, however no hydronephrosis seen. Ashraf in the bladder. Echogenic thin renal cortices can be seen with medical renal disease.
[2024-11-25 10:01] LABS: Alkaline Phosphatase 125 U/L (46-116); Blood Urea Nitrogen 37 mg/dL (9-23); Chloride 98 mmol/L (98-107); Glucose 122 mg/dL (74-106)
--- NOTE | 2024-11-25 10:05 | DVH ---
INDICATION: sob TECHNIQUE: Frontal view of the chest. COMPARISON: XY CHEST PORTABLE on DOS: 11/21/24 FINDINGS: Right tunneled HD catheter. The heart and mediastinal contours are grossly unremarkable. There is no evidence of pleural disease. The lungs are clear. The bony structures of the chest are intact wit hout fracture. IMPRESSION: 1. No evidence of acute disease.
[2024-11-25 10:59] LABS: Hematocrit 31.7 % (41.0-53.0); Hemoglobin 9.9 g/dL (13.5-17.5); Mean Corpuscular Hemoglobin 29.3 pg (28.0-32.0); Mean Corpuscular Volume 93.6 fL (80.0-100.0); Nucleated Red Blood Cells % 0.0 %
[2024-11-25 12:21] LABS: Urine Protein, UAD 3+ (Negative); Urine WBC Clumps PRESENT /hpf (None Seen)
[2024-11-25] MEDS ORDERED: ONDANSETRON HCL 4 MG/2 ML VIAL ONE (14:26)
[2024-11-25] MEDS ORDERED: PROPOFOL 10 MG/ML 20 ML IV ONE (14:26)
--- NOTE | 2024-11-25 14:47 | DVHOP2 ---
Operative Report DATE OF OPERATION: 11/25/24 PROCEDURE: Upper Endoscopy with biopsy. PREOPERATIVE INDICATION: The patient is a 78 -year-old male undergoing endoscopy for melena and anemia POSTOPERATIVE DIAGNOSES: 1. Minimal gastroduodenitis 2. Otherwise normal examination up to the 2nd and 3rd part of the duodenal with no fresh or old blood in the upper GI tract PROCEDURE PERFORMED BY: Enid Campbell GI NURSE: Cristy SCOPE: Olympus videoendoscope. ASA CLASS: 3. PREOPERATIVE MEDICATIONS: Mac flash, Daryl Ayala PROCEDURE IN DETAIL: After obtaining an informed consent, the patient was placed on left lateral decubitus position. The patient was then sedated with the above medications. A bite block was placed between his teeth. The endoscope was then passed through the oropharynx, into the esophagus, and through the stomach and pylorus up to the second and third part of the duodenum. The endoscope was then withdrawn. The 2nd and 3rd part of the duodenal and the duodenal bulb were normal. Duodenal biopsies were obtained The pre-pyloric area antrum and body showed minimal gastritis. Gastric biopsies were obtained. On retroflexion the fundus cardia and angularis were normal. There was no fresh or old blood in the upper GI tract. The endoscope was then withdrawn into distal esophagus where the patient had a slightly irregular squamocolumnar junction with no significant erosive esophagitis There 5 mm extension of columnar epithelium into distal esophagus. GE junction biopsies were obtained. The remaining distal and proximal esophagus and oropharynx were unremarkable The patient tolerated the procedure well without difficulty. COMPLICATIONS : None SPECIMENS: Duodenal biopsies Gastric biopsies GE junction biopsies DISPOSITION: Transfer back to the floor Stable PLAN: 1. Await for biopsy result 2. Will place pt on Protonix 40 mg p.o. daily 3. Start clear liquid diet 4. Bowel prep tonight and a possible colonoscopy tomorrow if the patient cooperates with the bowel prep 5. Otherwise patient can be seen in my office as an outpatient for elective colonoscopy ENID CAMPBELL MD Nov 25, 2024 14:47
[2024-11-25] MEDS ORDERED: CLINIMIX PER PHARMACY 0 ML IV SCH (16:05)
[2024-11-25] MEDS ORDERED: DEXTROSE (50%) 50ML SYRG IV SCH (17:15)
--- NOTE | 2024-11-25 17:23 | DVHPN2 ---
Progress Note Date Seen: Nov 25, 2024 Medical Necessity Reason Pt with a Central, PICC or Fol: Yes The following are medically ne: Ashraf Catheter Subjective Patient reports: No new complaints Objective vital signs Vital Sign Date Time Temp Pulse Resp B/P (MAP) Pulse Ox O2 Delivery O2 Flow Rate FiO2 11/25/24 15:40 98 94 151/61 (91) 94 11/25/24 14:39 Mask 6.0 11/25/24 14:39 98.7 98.7 11/25/24 11:52 24 Total Intake and Output 11/24/24 11/24/24 11/25/24 15:00 23:00 07:00 Intake Total 0 ml 0 ml Output Total 250 ml 100 ml Balance -250 ml -100 ml medications Current Medications Medications Dose Ordered Sig/Delfino Route Start Time Stop Time Status Last Admin Dose Admin Amlodipine Besylate 10 mg DAILY PO 11/22/24 10:00 11/25/24 10:19 10 MG Ipratropium [place] 0.5 mg Q6HWA NEB 11/21/24 22:00 11/25/24 11:52 0.5 MG Hydralazine HCl 10 mg Q4HP PRN IV 11/23/24 09:15 11/23/24 09:34 10 MG Pantoprazole Sodium 40 mg BID IV 11/23/24 22:00 11/25/24 10:18 40 MG Sucralfate 1 gm BID PO 11/25/24 22:00 Amino Acids 0 ml @ 0 mls/hr PER PHARMACY IV 11/25/24 16:05 Diagnostic Test (Pha) 1 strip Q6HR 11/25/24 18:00 Insulin Human Regular FOLLOW SLIDING SCALE Q6HR SC 11/25/24 18:00 Dextrose 50 ml UD IV 11/25/24 17:15 Amino Acids/ Electrolytes/ Dextrose 1,000 ml @ 41 mls/hr DAILY@2200 IV 11/25/24 22:00 laboratory and microbiology Laboratory Tests 11/25/24 09:04 Test 11/25/24 09:04 Range/Units Serum Glucose 122 H 74-106 mg/dL Microbiology Date/Time Source Procedure Growth Status 11/22/24 06:00 Nose MRSA Screen - Final Complete Problem List/Assessment/Plan Problem List/Assessment/Plan 1. ESRD on HD- 2. HTN 3. hx of COPD 4. Anemia s/p PRBC transfusion recs HD 11/26 EGD today Plan discussed with: Patient My Orders My Orders Orders - GERMAN WATERMAN MD Procedure Category Date Status Time Kidney US 11/25/24 Resulted 09:07 CC Plasma Assessment Blood Product Administration S: [id number] GERMAN WATERMAN MD Nov 25, 2024 17:23
[2024-11-25] MEDS: ACCU-CHEK COMFORT CURVE STRIP VI SCH (17:51)
--- NOTE | 2024-11-25 17:57 | DVHPN2 ---
Subjective Patient's has been evaluated by GI , status post EGD showed gastroduodenitis currently on Protonix and Carafate. 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 Medications Current Medications Medications Dose Ordered Sig/Delfino Route Start Time Stop Time Status Last Admin Dose Admin Amlodipine Besylate 10 mg DAILY PO 11/22/24 10:00 11/25/24 10:19 10 MG Ipratropium [place] 0.5 mg Q6HWA NEB 11/21/24 22:00 11/25/24 11:52 0.5 MG Hydralazine HCl 10 mg Q4HP PRN IV 11/23/24 09:15 11/23/24 09:34 10 MG Pantoprazole Sodium 40 mg BID IV 11/23/24 22:00 11/25/24 10:18 40 MG Sucralfate 1 gm BID PO 11/25/24 22:00 Amino Acids 0 ml @ 0 mls/hr PER PHARMACY IV 11/25/24 16:05 Diagnostic Test (Pha) 1 strip Q6HR 11/25/24 18:00 11/25/24 17:51 1 STRIP Insulin Human Regular FOLLOW SLIDING SCALE Q6HR SC 11/25/24 18:00 Dextrose 50 ml UD IV 11/25/24 17:15 Amino Acids/ Electrolytes/ Dextrose 1,000 ml @ 41 mls/hr DAILY@2200 IV 11/25/24 22:00 Laboratory Results Laboratory Tests 11/25/24 09:04 Chemistry Test 11/25/24 09:04 Albumin 4.3 g/dL (3.2-4.8) Calcium Level 9.9 mg/dL (8.7-10.4) Magnesium Level Pending Phosphorus Level Pending Total Protein .3 g/dL (5.7-8.2) Lipid panel Test 11/25/24 09:04 Triglycerides Level Pending LFT Test 11/25/24 09:04 Alanine Aminotransferase (ALT) 31 U/L (7-40) Alkaline Phosphatase 125 U/L (46-116) H Aspartate Amino Transferase (AST) 25 U/L (13-40) Total Bilirubin 0.8 mg/dL (0.2-1.0) Urinalysis Test 11/23/24 05:50 11/25/24 09:23 Urine Amorphous Crystals Few /hpf (None Seen) Urine Color Light-brown (Yellow) Urine Clarity Turbid (Clear) H Urine pH 8.5 (5.0-9.0) Urine Specific [place] 1.011 (1.001-1.035) Urine Protein 3+ (Negative) H Urine Ketones Trace (Negative) Urine Blood 3+ /uL (Negative) H Urine Nitrite Negative (Negative) Urine Bilirubin Negative (Negative) Urine Urobilinogen Normal mg/dL (Negative) Urine Leukocyte Esterase 3+ /uL (Negative) Urine RBC 2271 /hpf (0 - 3) Urine WBC Clumps Present /hpf (None Seen) Urine Microscopic WBC 312 /HPF (0-3) H Urine Squamous Epithelial Cells None seen /hpf (<5) Urine Bacteria None seen /hpf (None Seen) Urine Glucose Trace mg/dL (Normal) Blood Gas Results Test 11/25/24 09:22 Arterial Blood pH 7.528 (7.350-7.450) FiO2 % 24.0 Microbiology Microbiology Date/Time Source Procedure Growth Status 11/22/24 06:00 Nose MRSA Screen - Final Complete Assessment/Plan Assessment/Plan 78-year-old male with a known history of colon cancer status post partial colectomy status post oral chemotherapy currently in remission, end-stage renal disease on hemodialysis, hypertension, COPD initially presented to hospital with a black tarry stools found to have 1. Melanotic stools rule out upper GI bleed, status post 2 units of packed RBC, status post EGD showed gastro duodenitis 2. History of colon cancer status post partial colectomy status post chemotherapy, status post colostomy 3. End-stage renal disease on hemodialysis 4. Hypertension 5. COPD -monitor H&H, continue Protonix follow up GI recommendations , colonoscopy as per GI. Daughter was updated at bedside. Plan discussed with: Patient, Daughter My Orders Orders - BRIE BOLAND MD Procedure Category Date Status Time Abg W/ Co-Ox RT 11/25/24 Logged 08:59 Chest Portable XY 11/25/24 Resulted 08:59 Urine Bacterial MARIA VICTORIA 11/25/24 In Process Culture 09:23 Clinimix Per Pharmacy PHA 11/25/24 In Process 16:05 Glucose Blood PHA 11/25/24 In Process (Accu-Chek Comfort 18:00 Insulin R (Human) PHA 11/25/24 In Process (Insulin R) 18:00 Dextrose 50% Syringe PHA 11/25/24 In Process 17:15 Magnesium LAB 11/25/24 In Process 17:06 Phosphorus LAB 11/25/24 In Process 17:06 Triglycerides LAB 11/25/24 In Process 17:06 Comprehensive LAB 11/26/24 Verified Metabolic Panel 04:00 Magnesium LAB 11/26/24 Verified 04:00 Phosphorus LAB 11/26/24 Verified 04:00 Clinimix Per Pharmacy SONJA 11/25/24 In Process 22:00 Amino Acid Infusion PHA 11/25/24 In Process In D10w (Clinimix 4. 22:00 Date of Service: Nov 25, 2024 Billing Provider: BRIE BOLAND MD Common Visit Codes: [id number] INP/OBS CARE(MOD) BRIE BOLAND MD Nov 25, 2024 17:56
[2024-11-25] MEDS: InsuLIN REG 1unit/0.01ml Soln (100units/ml) SC SCH (18:00)
[2024-11-25 18:07] LABS: Magnesium 2.2 mg/dL (1.6-2.6)
[2024-11-25 18:15] LABS: Triglycerides 241.0 mg/dL (< 150)
[2024-11-25] MEDS: GOLYTELY 4L KIT PO ONE (18:43)
[2024-11-25] MEDS: AMINO ACID INFUSION IN D10W 1,000 ML IV SCH (21:55)
[2024-11-25] MEDS: SUCRALFATE 1 GM/10 ML ORAL SUSP PO SCH (22:00)
[2024-11-26] VITALS (14 sets, daily range): BP systolic 145–156; BP diastolic 68–79; PULSE 87–115; RESP 16–20; TEMP 98.1–98.4; O2SAT 92–100
[2024-11-26] MEDS: MAGNESIUM CITRATE SOLUTION 300 ML BTL PO ONE (06:00)
[2024-11-26] MEDS: GOLYTELY 4L KIT PO ONE (06:00)
[2024-11-26 07:36] LABS: Alanine Aminotransferase 21 U/L (7-40); Alkaline Phosphatase 112 U/L (46-116); Anion Gap 16 (5-15); BUN/Creatinine Ratio 8.3 (10.0-20.0); Calcium 9.5 mg/dL (8.7-10.4); Carbon Dioxide 23 mmol/L (20-31); Magnesium 2.2 mg/dL (1.6-2.6); Total Protein 6.9 g/dL (5.7-8.2)
[2024-11-26 07:37] LABS: Albumin 4.1 g/dL (3.2-4.8); Bilirubin, Total 0.8 mg/dL (0.2-1.0)
[2024-11-26 07:38] LABS: Blood Urea Nitrogen 53 mg/dL (9-23); Chloride 101 mmol/L (98-107); Glucose 156 mg/dL (74-106); Potassium 3.9 mmol/L (3.5-5.1); Sodium 140 mmol/L (136-145)
--- NOTE | 2024-11-26 12:54 | DVHPN2 ---
Progress Note - Dictate Date Seen: Nov 26, 2024 Medical Necessity Reason Pt with a Central, PICC or Fol: Yes The following are medically ne: Ashraf Catheter Subjective No new complaints Patient is lethargic No active GI bleeding reported Patient refused to drink his bowel prep and did not drink much of the GoLYTELY and refused the Mag citrate vital signs Vital Sign Date Time Temp Pulse Resp B/P (MAP) Pulse Ox O2 Delivery O2 Flow Rate FiO2 11/26/24 11:31 98 16 100 11/26/24 09:00 98.4 156/79 (104) 98.4 11/26/24 06:32 Nasal Cannula* 1 24 Total Intake and Output 11/25/24 11/25/24 11/26/24 15:00 23:00 07:00 Intake Total 125 ml 0 ml 328 ml Output Total 0 ml 100 ml Balance 125 ml 0 ml 228 ml medications Current Medications Medications Dose Ordered Sig/Delfino Route Start Time Stop Time Status Last Admin Dose Admin Amlodipine Besylate 10 mg DAILY PO 11/22/24 10:00 11/25/24 10:19 10 MG Ipratropium [place] 0.5 mg Q6HWA NEB 11/21/24 22:00 11/26/24 11:21 0.5 MG Hydralazine HCl 10 mg Q4HP PRN IV 11/23/24 09:15 11/23/24 09:34 10 MG Pantoprazole Sodium 40 mg BID IV 11/23/24 22:00 11/26/24 10:09 40 MG Sucralfate 1 gm BID PO 11/25/24 22:00 Amino Acids 0 ml @ 0 mls/hr PER PHARMACY IV 11/25/24 16:05 Diagnostic Test (Pha) 1 strip Q6HR 11/25/24 18:00 11/26/24 11:55 1 STRIP Insulin Human Regular FOLLOW SLIDING SCALE Q6HR SC 11/25/24 18:00 11/26/24 11:55 2 UNITS Dextrose 50 ml UD IV 11/25/24 17:15 Amino Acids/ Electrolytes/ Dextrose 1,000 ml @ 41 mls/hr DAILY@2200 IV 11/25/24 22:00 11/25/24 21:55 41 MLS/HR Ceftriaxone Sodium 50 ml @ 100 mls/hr DAILY@09 IV 11/26/24 09:00 7/30/25 10:10 100 MLS/HR objective * General: Alert, oriented, lethargic and sleepy * Abdomen: Soft, mildly tender LUQ, non-distended, bowel sounds present. Colostomy bag intact, minimal output, no fresh blood. * Cardiovascular: Regular rhythm, mild tachycardia. * Pulmonary: Clear to auscultation with bibasilar crackles. * Other: Stable. laboratory and microbiology Laboratory Tests 11/26/24 06:19 11/25/24 09:04 Test 11/26/24 06:19 Range/Units Serum Glucose 156 H 74-106 mg/dL Problems(with codes): (1) ESRD (end stage renal disease) on dialysis (2) Acute upper GI bleed (3) History of colon cancer (4) Anemia (5) Symptomatic anemia (6) End-stage renal disease on hemodialysis Prognosis Plan Since the patient is noncompliant with his bowel prep and is in H&H is stable consider discharge planning as per hospitalist If the patient is going to be kept in the hospital for the next couple of days then I can consider retrain the bowel prep after inserting an NG-tube and scheduling colonoscopy on November 28, 2024 If discharge patient will follow up in my office as an outpatient in 2-4 weeks to arrange outpatient elective colonoscopy Plan discussed with: Other (Nurse and Dr Ly) CC Plasma Assessment Blood Product Administration S: [id number] ENID NATION MD Nov 26, 2024 12:54
--- NOTE | 2024-11-26 15:57 | DVH ---
CT HEAD WITHOUT CONTRAST Indication: Altered mental status EXAM DATE: 11/26/2024 03:05 PM COMPARISON: None TECHNIQUE: CT of the head without intravenous contrast. RADIATION DOSE: CTDIvol: 57.53 mGy, DLP: 1.71 mGy*cm FINDINGS: There is no intracranial hemorrhage. Acute to subacute right frontoparietal infarction with huang-whit e differentiation loss. Thrombus /hyperdensity within the M2 segment of the right middle cerebral art caludy. Moderate periventricular and subcortical white matter chronic microvascular ischemic changes. Th e ventricles are midline and normal in size. Cisterns patent. The paranasal sinuses and mastoids are well-pneumatized. Imaged portion of the orbits are unremarkabl e. Occipital scalp soft tissue prominence /fatty lesion measuring 9.6 x 4.6 cm. 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 Recommend neurology consultation. Moderate chronic microvascular ischemic changes. Occipital scalpm soft tissue prominence /fatty lesion measuring 9.6 x 4.6 cm. Recommend dermatology c onsultation. Critical Result: Right MCA distribution acute to subacute infarction Findings discussed with BRIE BOLAND at 11/26/2024 03:56 PM, and acknowledged receipt and underst anding of the findings. ..
--- NOTE | 2024-11-26 16:51 | DVHPN2 ---
Progress Note Date Seen: Nov 26, 2024 Medical Necessity Reason Pt with a Central, PICC or Fol: Yes The following are medically ne: Ashraf Catheter Subjective Patient reports: Other Review of Systems: Deferred Objective vital signs Vital Sign Date Time Temp Pulse Resp B/P (MAP) Pulse Ox O2 Delivery O2 Flow Rate FiO2 11/26/24 11:31 98 16 100 11/26/24 10:00 156/79 11/26/24 09:00 98.4 98.4 11/26/24 06:32 Nasal Cannula* 1 24 Total Intake and Output 11/25/24 11/25/24 11/26/24 15:00 23:00 07:00 Intake Total 125 ml 0 ml 328 ml Output Total 0 ml 100 ml Balance 125 ml 0 ml 228 ml medications Current Medications Medications Dose Ordered Sig/Delfino Route Start Time Stop Time Status Last Admin Dose Admin Amlodipine Besylate 10 mg DAILY PO 11/22/24 10:00 11/25/24 10:19 10 MG Ipratropium [place] 0.5 mg Q6HWA NEB 11/21/24 22:00 11/26/24 11:21 0.5 MG Hydralazine HCl 10 mg Q4HP PRN IV 11/23/24 09:15 11/23/24 09:34 10 MG Pantoprazole Sodium 40 mg BID IV 11/23/24 22:00 11/26/24 10:09 40 MG Sucralfate 1 gm BID PO 11/25/24 22:00 Amino Acids 0 ml @ 0 mls/hr PER PHARMACY IV 11/25/24 16:05 Diagnostic Test (Pha) 1 strip Q6HR 11/25/24 18:00 11/26/24 11:55 1 STRIP Insulin Human Regular FOLLOW SLIDING SCALE Q6HR SC 11/25/24 18:00 11/26/24 11:55 2 UNITS Dextrose 50 ml UD IV 11/25/24 17:15 Amino Acids/ Electrolytes/ Dextrose 1,000 ml @ 41 mls/hr DAILY@2200 IV 11/25/24 22:00 11/25/24 21:55 41 MLS/HR Ceftriaxone Sodium 50 ml @ 100 mls/hr DAILY@09 IV 11/26/24 09:00 11/26/24 10:10 100 MLS/HR Aspirin 300 mg DAILY NV 11/26/24 16:00 Atorvastatin Calcium 40 mg HS PO 11/26/24 22:00 Examination: GENERAL:Abnormal, NEURO:Abnormal laboratory and microbiology Laboratory Tests 11/26/24 06:19 11/25/24 09:04 Test 11/26/24 06:19 Range/Units Serum Glucose 156 H 74-106 mg/dL Microbiology Date/Time Source Procedure Growth Status 11/25/24 09:23 Urine - Midstream Clean Catch Urine Culture - Preliminary Resulted 11/22/24 06:00 Nose MRSA Screen - Final Complete Problem List/Assessment/Plan Problem List/Assessment/Plan 1. ESRD on HD- 2. HTN 3. hx of COPD 4. Anemia s/p PRBC transfusion recs HD 11/26 EGD no hydronphrosis on follow up US outpt urology eval Plan discussed with: Patient, Other Dietary Evaluation Review Comments: 1) Nepro Carbsteady 240ml TID 2) Consider renal standard diet 3) Monitor PO intake, lab values, weight trend, and I/O Expected Outcomes/Goals: To meet >75% estimated needs lab values to improve Fu 3-5 days CC Plasma Assessment Blood Product Administration S: [id number] GERMAN WATERMAN MD Nov 26, 2024 16:51
--- NOTE | 2024-11-26 16:52 | DVH ---
Carotid Duplex Clinical History: cva Comparison: None Technique: Duplex doppler evaluation of the extracranial carotid and vertebral arteries including color doppler and spectral/pulsed waveform analysis was performed. Findings: Limited study as the patient was uncooperative. RIGHT SIDE: The peak systolic velocities are 61 cm/s in the CCA, 132 cm/s in the ICA. The ICA/CCA ratio is 2.2. The external carotid artery is patent with peak systolic velocity of 123 cm/s proximally. The right verteberal artery is not visualized. LEFT SIDE: The peak systolic velocities are 61 cm/s in the CCA, 84 cm/s in the ICA. The ICA/CCA ratio is 1.4. The external carotid artery is patent with peak systolic velocity of 105 cm/s proximally. The left vertebral artery is not visualized IMPRESSION: Limited study as the patient was uncooperative. 1. No hemodynamically significant stenosis noted in the right carotid system. Approximately 50-69 % f ocal stenosis in the mid right internal carotid artery. 2. No hemodynamically significant stenosis noted in the left carotid system. 3. The vertebral arteries were not visualized. Reference: Radiology 2003; 229:340-346 Normal ICA PSV is <125 cm/sec and no plaque or intimal thickening is visible sonographically Additional criteria include ICA/CCA PSV ratio <2.0 and ICA EDV <40 cm/sec <50% ICA stenosis ICA PSV is <125 cm/sec and plaque or intimal thickening is visible sonographically Additional criteria include ICA/CCA PSV ratio <2.0 and ICA EDV <40 cm/sec 50-69% ICA stenosis ICA PSV is 125-230 cm/sec and plaque is visible sonographically Additional criteria include ICA/CCA PSV ratio of 2.0-4.0 and ICA EDV of 40-100 cm/sec 70% ICA stenosis but less than near occlusion ICA PSV is >230 cm/sec and visible plaque and luminal narrowing are seen at huang-scale and color dopp ler ultrasound (the higher the doppler parameters lie above the threshold of 230 cm/sec, the greater the likelihood of severe disease) Additional criteria include ICA/CCA PSV ratio >4 and ICA EDV >100 cm/sec
--- NOTE | 2024-11-26 17:01 | DVHPN2 ---
Subjective Patient's daughter was updated at bedside . Earlier bedside RN Seble told me that patient removed his colostomy bag and it was agitated. Patient was examined by me stat head CT was ordered which shows evidence of right MCA CVA. Daughter was updated regarding current plan of care who understand verbalized understanding and agreeable to plan. Swallow evaluation and physical therapy has been ordered Changes from previous H/P or p: No Changes, Changes (Acute/subacute MCA stroke) Objective Vitals Vital Signs Date Time Temp Pulse Resp B/P (MAP) Pulse Ox O2 Delivery O2 Flow Rate FiO2 11/26/24 11:31 98 16 100 11/26/24 10:00 156/79 11/26/24 09:00 98.4 98.4 11/26/24 06:32 Nasal Cannula* 1 24 Intake/Output Intake and Output 11/26/24 07:00 Intake Total 453 ml Output Total 100 ml Balance 353 ml Intake Oral 0 ml IV Total 453 ml Output Urine Total 100 ml Exam HEENT pupils are reactive Neck is supple CV is S1-S2 regular rate and rhythm Respiratory diminished breath sounds bases GI positive bowel sound , positive colostomy Extremity no edema 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 Medications Current Medications Medications Dose Ordered Sig/Delfino Route Start Time Stop Time Status Last Admin Dose Admin Amlodipine Besylate 10 mg DAILY PO 11/22/24 10:00 11/25/24 10:19 10 MG Ipratropium [place] 0.5 mg Q6HWA NEB 11/21/24 22:00 11/26/24 11:21 0.5 MG Hydralazine HCl 10 mg Q4HP PRN IV 11/23/24 09:15 11/23/24 09:34 10 MG Pantoprazole Sodium 40 mg BID IV 11/23/24 22:00 11/26/24 10:09 40 MG Sucralfate 1 gm BID PO 11/25/24 22:00 Amino Acids 0 ml @ 0 mls/hr PER PHARMACY IV 11/25/24 16:05 Diagnostic Test (Pha) 1 strip Q6HR 11/25/24 18:00 11/26/24 11:55 1 STRIP Insulin Human Regular FOLLOW SLIDING SCALE Q6HR SC 11/25/24 18:00 11/26/24 11:55 2 UNITS Dextrose 50 ml UD IV 11/25/24 17:15 Amino Acids/ Electrolytes/ Dextrose 1,000 ml @ 41 mls/hr DAILY@2200 IV 11/25/24 22:00 11/25/24 21:55 41 MLS/HR Ceftriaxone Sodium 50 ml @ 100 mls/hr DAILY@09 IV 11/26/24 09:00 11/26/24 10:10 100 MLS/HR Aspirin 300 mg DAILY AR 11/26/24 16:00 Atorvastatin Calcium 40 mg HS PO 11/26/24 22:00 Laboratory Results Laboratory Tests 11/25/24 09:04 11/26/24 06:19 Chemistry Test 11/26/24 06:19 Albumin 4.1 g/dL (3.2-4.8) Calcium Level 9.5 mg/dL (8.7-10.4) Magnesium Level 2.2 mg/dL (1.6-2.6) Phosphorus Level 3.6 mg/dL (2.4-5.1) Total Protein 6.9 g/dL (5.7-8.2) LFT Test 11/26/24 06:19 Alanine Aminotransferase (ALT) 21 U/L (7-40) Alkaline Phosphatase 112 U/L (46-116) Aspartate Amino Transferase (AST) 19 U/L (13-40) Total Bilirubin 0.8 mg/dL (0.2-1.0) Urinalysis Test 11/23/24 05:50 11/25/24 09:23 Urine Amorphous Crystals Few /hpf (None Seen) Urine Color Light-brown (Yellow) Urine Clarity Turbid (Clear) H Urine pH 8.5 (5.0-9.0) Urine Specific [place] 1.011 (1.001-1.035) Urine Protein 3+ (Negative) H Urine Ketones Trace (Negative) Urine Blood 3+ /uL (Negative) H Urine Nitrite Negative (Negative) Urine Bilirubin Negative (Negative) Urine Urobilinogen Normal mg/dL (Negative) Urine Leukocyte Esterase 3+ /uL (Negative) Urine RBC 2271 /hpf (0 - 3) Urine WBC Clumps Present /hpf (None Seen) Urine Microscopic WBC 312 /HPF (0-3) H Urine Squamous Epithelial Cells None seen /hpf (<5) Urine Bacteria None seen /hpf (None Seen) Urine Glucose Trace mg/dL (Normal) Microbiology Microbiology Date/Time Source Procedure Growth Status 11/25/24 09:23 Urine - Midstream Clean Catch Urine Culture - Preliminary Resulted 11/22/24 06:00 Nose MRSA Screen - Final Complete Assessment/Plan Assessment/Plan 78-year-old male with a known history of colon cancer status post partial colectomy status post oral chemotherapy currently in remission, end-stage renal disease on hemodialysis, hypertension, COPD initially presented to hospital with a black tarry stools found to have 1. Acute/subacute right MCA 2. Acute delirium/acute encephalopathy suspect secondary to acute CVA 3.Melanotic stools rule out upper GI bleed, status post EGD showed gastro duodenitis 4. History of colon cancer status post partial colectomy status post chemotherapy, status post colostomy 5. End-stage renal disease on hemodialysis 6.. Hypertension 7. COPD -aspirin, statin, Plavix MRI brain noncontrast, neurology consultation -new Protonix and Carafate -I updated daughter regarding current condition including acute/subacute stroke she understand verbalized understanding and agreeable to plan.. Plan discussed with: Daughter My Orders Orders - BRIE BOLADN MD Procedure Category Date Status Time Glucose Blood PHA 11/25/24 In Process (Accu-Chek Comfort 18:00 Insulin R (Human) PHA 11/25/24 In Process (Insulin R) 18:00 Dextrose 50% Syringe PHA 11/25/24 In Process 17:15 Clinimix Per Pharmacy [facility] 11/25/24 In Process 22:00 Amino Acid Infusion PHA 11/25/24 In Process In D10w (Clinimix 4. 22:00 Ceftriaxone 1gm/50ml PHA 11/26/24 In Process D5w (Rocephin) 09:00 Cardiac DIET 11/26/24 Transmitted Diet-2gna,Lofat,Lochol Lunch Head Without Contrast CT 11/26/24 Resulted 14:38 Comprehensive LAB 11/27/24 Verified Metabolic Panel 04:00 Magnesium LAB 11/27/24 Verified 04:00 Phosphorus LAB 11/27/24 Verified 04:00 Clinimix Per Pharmacy [facility] 11/26/24 In Process 22:00 Brain Head Wo Contrast MRI 11/26/24 Logged 15:52 Carotid Duplx W Color US 11/26/24 Resulted DOP 15:52 * Neurology Consult CONS 11/26/24 Transmitted 15:52 Aspirin Suppository PHA 11/26/24 In Process 16:00 Atorvastatin (Lipitor) PHA 11/26/24 In Process 22:[address] 11/26/24 Transmitted 16:15 Pt Request For Service PT 11/26/24 Logged 16:15 Date of Service: Nov 26, 2024 Billing Provider: BRIE BOLAND MD Common Visit Codes: [id number] INP/OBS CARE(HIGH) BRIE BOLAND MD Nov 26, 2024 17:01
--- NOTE | 2024-11-26 17:21 | DVH ---
PROCEDURE: MRI BRAIN HEAD WO CONTRAST Indication: acute cva COMPARISON: CT HEAD WITHOUT CONTRAST on DOS: 11/26/24 TECHNIQUE: Multiplanar multisequence images of the brain are obtained. FINDINGS: There is diffusion restriction within the right frontal / parietal lobes, subinsular corresponding to the infarction seen on CT head from today. There is associated increased T2/FLAIR signal. There are moderate periventricular and subcortical white matter T2 and FLAIR hyperintense changes. There is no intracranial hemorrhage. No extra-axial fluid collection, mass effect or midline shift. The ventricle s are midline and normal in size. The cisterns are patent. The right middle cerebral artery M2 flow v oids are less conspicuous.. No abnormal susceptibility signal. The sinuses and mastoids are well pneumatized. The visualized orbits are unremarkable. Occipital scalp mass measuring 6.6 x 3.0 cm Severe cervical degenerative disc disease at C3, C4, incompletely characterized. IMPRESSION: Acute infarction right middle cerebral artery distribution involving the right frontal and parietal l obes. Findings consistent with right M2 middle cerebral artery segment occlusion/thrombosis. Moderate chronic microvascular ischemic changes. Occipital scalp mass, indeterminate, measuring 6.6 x 3.0 cm. This does NOT have features of a fatty containing lesion
[2024-11-26] MEDS: ATORVASTATIN 20 MG TAB PO SCH (21:09)
--- NOTE | 2024-11-26 23:58 | DVHINCON2 ---
Date of service: Nov 26, [address] Koo Reason for Consultation Acute CVA History of Present Illness Mr. Akbar is a 78 years old gentleman with a history of hypertension, dyslipidemia, COPD, end-stage kidney failure on hemodialysis, colon cancer status post colostomy, he was brought to the [facility] on 11/21/2024 with a chief company of general weakness and dark stool. At this time, the patient is awake, but he does not note vocalize, or follow verbal commands, the history is obtained from chart review and talking to his nurse After he came to the hospital, he was confirmed to have severe anemia and he received RBC transfusion with improved general condition, he has occult stool blood was positive, GI specialist on case Because of altered mental status, CT brain scan showed evidence suggestive of, and MR brain scan confirmed acute right MCA territory stroke Stool occult blood, 11/21/2024: Positive Urinalysis, 11/23/2024: UTI UDS, 11/23/2024: Negative WBC/HB/PLT/MCV, 11/21/2024: 12.3/5.8/267/94.5, 11/25/2024: 11.8/9.9/275/93.6 PT/INR/PTT, 11/21/2024: 13/1.25/41.6 BUN/CR, 11/26/2024: 53/6.41 HGB A1c, 11/21/2024: <3.8 Vitamin B12, 11/21/2024: 452 TSH, 11/21/2024: 2.27 Carotid Doppler, 11/26/2024: 1. No hemodynamically significant stenosis noted in the right carotid system. Approximately 50-69 % focal stenosis in the mid right internal carotid artery. 2. No hemodynamically significant stenosis noted in the left carotid system. 3. The vertebral arteries were not visualized. CT head, 11/09/2024: Acute to subacute infarction of the right frontoparietal lobe with thrombus in the right middle cerebral artery M2 segment. Recommend neurology consultation. Moderate chronic microvascular ischemic changes. MRI head, 11/26/2024: Acute infarction right middle cerebral artery distribution involving the right frontal and parietal lobes. Findings consistent with right M2 middle cerebral artery segment occlusion/thrombosis. Moderate chronic microvascular ischemic changes. EGD, 11/25/2024: 1. Minimal gastroduodenitis 2. Otherwise normal examination up to the 2nd and 3rd part of the duodenal with no fresh or old blood in the upper GI tract Past Medical History Hypertension, dyslipidemia, COPD, end-stage kidney failure on hemodialysis, colon cancer Past Surgical History Colostomy Family History: Patient reports no known family medical history. Family History Patient reports no known family medical history. Social History Smoker: Non-Smoker Alcohol: Denies ETOH Use Drugs: Denies Drug Use Allergies: Coded Allergies: No Known Drug Allergy (Verified Allergy, Unknown, 11/21/24) Current Medications Current Medications Medications (Trade) Dose Ordered Sig/Delfino Route PRN Reason Start Time Stop Time Status Last Admin Ceftriaxone Sodium 50 ml @ 100 mls/hr DAILY@09 IV 11/26/24 09:00 11/26/24 10:10 Aspirin 300 mg DAILY PA 11/26/24 16:00 11/26/24 17:04 Atorvastatin Calcium (Lipitor) 40 mg HS PO 11/26/24 22:00 Review of Systems As above, the other systems are negative Vital Signs Vital Signs Date Time Temp Pulse Resp B/P (MAP) Pulse Ox O2 Delivery O2 Flow Rate FiO2 11/26/24 21:40 148/68 (94) 11/26/24 20:30 98.4 106 18 100 98.4 11/26/24 20:00 Nasal Cannula* 1 24 Physical Exam GENERAL EXAM: General: the patient is well developed and nourished. No acute distress. HEENT: Normocephalic, neck is supple, no carotid bruits. No mass. RESPIRATORY: Normal respiratory effort with symmetrical lung expansion. Lungs clear to auscultation. CARDIOVASCULAR: Regular rate and rhythm with no murmurs. S1, S2. ABDOMEN: Soft, nontender, normal bowel sound NEUROLOGICAL: MENTAL STATUS: Arousable SPEECH, LANGUAGE, HIGHER CORTICAL FUNCTION: He does not vocalize CRANIAL NERVES: #2: Visual manuel appeared to be for #3,4,6: Pupils are equal, round and reactive. EOMs full and conjugate. #5: Facial sensation intact in all three divisions bilaterally. Mandibular strength intact. #7: Facial muscles symmetrical and strength intact. #8: Hearing grossly normal to voice. #9,10: Uvula and soft palate rise in the midline. Swallow and voice are normal. #11: Trapezius and sternomastoid strength intact bilaterally. #12: Tongue midline. No fasciculations or atrophy. SENSATION: Sensation to touch and pinprick is unremarkable MOTOR: Normal tone in the upper and lower extremity. Normal muscle bulk. No fasciculations. No abnormal movements or posturing. He moves the right, but not left extremities REFLEXES: Deep tendon reflexes are symmetrical. Upgoing toes in the left foot CEREBELLAR/COORDINATION: Deferred GAIT/STATION: deferred. Labs/Diagnostic Data Labs Test 11/26/24 18:18 11/26/24 06:19 11/25/24 09:23 11/25/24 09:22 Range/Units POC Glucose 148 H 70-106 mg/dl Sodium Level 140 136-145 mmol/L Potassium Level 3.9 3.5-5.1 mmol/L Chloride Level 101 98-107 mmol/L Carbon Dioxide Level 23 20-31 mmol/L Anion Gap 16 H 5-15 Blood Urea Nitrogen 53 #H 9-23 mg/dL Creatinine 6.41 H 0.700-1.30 mg/dL Glomerular Filtration Rate Calc 8 >90 mL/min BUN/Creatinine Ratio 8.3 L 10.0-20.0 Serum Glucose 156 H 74-106 mg/dL Calcium Level 9.5 8.7-10.4 mg/dL Phosphorus Level 3.6 2.4-5.1 mg/dL Magnesium Level 2.2 1.6-2.6 mg/dL Total Bilirubin 0.8 0.2-1.0 mg/dL Aspartate Amino Transferase (AST) 19 13-40 U/L Alanine Aminotransferase (ALT) 21 7-40 U/L Alkaline Phosphatase 112 46-116 U/L Total Protein 6.9 5.7-8.2 g/dL Albumin 4.1 3.2-4.8 g/dL Urine Color Light-brown Yellow Urine Clarity Turbid H Clear Urine pH 8.5 5.0-9.0 Urine Specific [place] 1.011 1.001-1.035 Urine Protein 3+ H Negative Urine Ketones Trace Negative Urine Blood 3+ H Negative /uL Urine Nitrite Negative Negative Urine Bilirubin Negative Negative Urine Urobilinogen Normal Negative mg/dL Urine Leukocyte Esterase 3+ Negative /uL Urine RBC 2271 0 - 3 /hpf Urine WBC Clumps Present None Seen /hpf Urine Microscopic WBC 312 H 0-3 /HPF Urine Squamous Epithelial Cells None seen <5 /hpf Urine Bacteria None seen None Seen /hpf Urine Glucose Trace Normal mg/dL Blood Gas Specimen Type Arterial Blood Gas Sample Site Left radial Blood Gas Patient Temperature 37.0 Arterial Blood Date Drawn [id number] Arterial Blood pH 7.528 H 7.350-7.450 Arterial Blood Partial Pressure CO2 28.5 L 35.0-48.0 mmHg Arterial Blood Partial Pressure O2 81.2 L 83.0-108.0 mmHg Arterial Blood HCO3 23.2 21.0-28.0 mmol/L Arterial Blood Oxygen Saturation 96.0 94.0-98.0 % Arterial Blood Base Excess 1.0 -2.0-3.0 mmol/L Arterial Blood Oxyhemoglobin 94.9 94.0-98.0 % Arterial Blood Carboxyhemoglobin 1.0 0.5-1.5 % Arterial Blood Methemoglobin 0.1 0.0-1.5 % Hugh Test Yes Blood Gas Total Hemoglobin 10.00 L 13.5-17.5 g/dL Blood Gas Liter Flow 1.00 Blood Gas Modality Nasal cannula FiO2 % 24.0 Test 11/25/24 09:04 11/24/24 05:34 11/23/24 06:20 11/23/24 05:50 Range/Units White Blood Count 11.8 H 4.4-10.8 10^3/uL Red Blood Count 3.38 L 4.5-5.90 10^6/uL Hemoglobin 9.9 #L 13.5-17.5 g/dL Hematocrit 31.7 #L 41.0-53.0 % Mean Corpuscular Volume 93.6 # 80.0-100.0 fL Mean Corpuscular Hemoglobin 29.3 28.0-32.0 pg Mean Corpuscular Hemoglobin Concent 31.3 L 32.0-36.0 g/dL Red Cell Distribution Width 20.0 H 11.8-14.3 % Platelet Count 275 140-450 10^3/uL Mean Platelet Volume 8.4 6.9-10.8 fL Neutrophils (%) (Auto) 84.6 H 37.0-80.0 % Lymphocytes (%) (Auto) 5.5 L 10.0-50.0 % Monocytes (%) (Auto) 9.1 0.0-12.0 % Eosinophils (%) (Auto) 0.3 0.0-7.0 % Basophils (%) (Auto) 0.5 0.0-2.0 % Neutrophils # (Auto) 9.9 H 1.6-8.6 10 ^3/uL Lymphocytes # (Auto) 0.6 0.4-5.4 10 ^3/uL Monocytes # (Auto) 1.1 0-1.3 10 ^3/uL Eosinophils # (Auto) 0 0-0.8 10 ^3/uL Basophils # (Auto) 0.1 0-0.2 10 ^3/uL Nucleated Red Blood Cells 0.0 % Triglycerides Level 241 H < 150 mg/dL Prothrombin Time 13.2 H 9.3-11.8 sec Prothrombin Time INR 1.28 H 0.9-1.15 Uric Acid 4.4 3.7-9.2 mg/dL Urine Amorphous Crystals Few None Seen /hpf Urine Opiates Screen Neg NEGATIVE Urine Fentanyl Screen Neg NEGATIVE Urine Barbiturates Screen Neg NEGATIVE Urine Phencyclidine Screen Neg NEGATIVE Urine Amphetamines Screen Neg NEGATIVE Urine Benzodiazepines Screen Neg NEGATIVE Urine Cocaine Screen Neg NEGATIVE Urine Cannabinoids Screen Neg NEGATIVE Test 11/22/24 04:27 11/21/24 20:09 11/21/24 19:45 11/21/24 15:56 Range/Units Hepatitis B Surface Antigen Negative Negative Hepatitis B Surface Antibody Negative Negative Stool Occult Blood Positive Negative Stool Occult Blood Sample #3 Negative Stool for White Cells Few Ammonia < 10 L 11-32 umol/L Vitamin D 25-Hydroxy 52.8 30.0-100 ng/mL Activated Partial Thromboplast Time 41.6 H 24.5-34.5 SEC Test 11/21/24 14:56 11/21/24 11:36 Range/Units Troponin I High Sensitivity 61 *H </=54 ng/L Hemoglobin A1c < 3.8 <5.7 % A1C Lactic Acid Level 1.4 0.4-2.0 mmol/L Iron Level 26 L 65-175 ug/dL Total Iron Binding Capacity 208 L 250-425 ug/dL Percent Iron Saturation 12.5 L 20-55 % Ferritin 869.1 H 22-322 ng/mL Vitamin B12 Level 452 211-911 pg/mL Thyroid Stimulating Hormone (TSH) 2.27 0.55-4.78 uIU/mL Parathyroid Hormone (Intact) 123.5 H 18.4-80.1 pg/mL Microbiology Date/Time Source Procedure Growth Status 11/25/24 09:23 Urine - Midstream Clean Catch Urine Culture - Preliminary Resulted 11/22/24 06:00 Nose MRSA Screen - Final Complete Assessment Acute right MCA territory stroke with acute left hemiparesis Altered mental status Secondary to acute stroke Metabolic encephalopathy Rule out seizure activity End-stage kidney failure Plan/Recommendation Monitoring Supportive treatment Lipitor profile Echocardiogram Aspirin PA 300 mg daily Lipitor 40 mg daily Carafate 1 g b.i.d. Protonix 40 mg b.i.d. Nephrology on case/hemodialysis GI specialist on case More recommendation per clinical course Prognosis: Poor This medical document was created using an electronic medical record system with [employer] dictation system. Although this document has been carefully reviewed, there may still be some phonetic and typographical errors. These areas are purely typographical due to imperfections of the software programs, and do not reflect any compromise in the patient's medical care. Plan discussed with: Other PATSY SALGADO MD Nov 26, 2024 23:58
[2024-11-27] VITALS (22 sets, daily range): BP systolic 129–163; BP diastolic 60–76; PULSE 89–148; RESP 16–28; TEMP 97.8–99.4; O2SAT 92–100
--- NOTE | 2024-11-27 08:53 | DVHPN2 ---
Progress Note - Dictate Date Seen: Nov 27, 2024 Medical Necessity Reason Pt with a Central, PICC or Fol: Yes The following are medically ne: Ashraf Catheter Subjective Mr. Akbar is a 78 years old gentleman with a history of hypertension, dyslipidemia, COPD, end-stage kidney failure on hemodialysis, colon cancer status post colostomy, he was brought to the [facility]– [place] on [place]/21/2024 with a chief company of general weakness and dark stool. I have seen and examined the patient, I have talked to his nurse, grandson and then his daughter, the patient is awake, but he does not vocalize answer questions, he can not move his left side According to his daughter, the patient was off his normal health status until three weeks ago, he developed bad neck pain, which did not affect his gait/walking. But after he was given a medication for the neck pain, he become drowsy, diminished talking, and his gait has been affected. Two days prior to this admission, he is more tired, weaker, diminished eating, increased sleeping, but his memory was fine He had a X-ray, which showed arthritis in the neck He had urinary incontinence for about one year Stool occult blood, 11/21/2024: Positive Urinalysis, 11/23/2024: UTI UDS, 11/23/2024: Negative WBC/HB/PLT/MCV, 11/21/2024: 12.3/5.8/267/94.5, 11/25/2024: 11.8/9.9/275/93.6 PT/INR/PTT, 11/21/2024: 13/1.25/41.6 BUN/CR, 11/26/2024: 53/6.41 HGB A1c, 11/21/2024: <3.8 Vitamin B12, 11/21/2024: 452 TSH, 11/21/2024: 2.27 Carotid Doppler, 11/26/2024: 1. No hemodynamically significant stenosis noted in the right carotid system. Approximately 50-69 % focal stenosis in the mid right internal carotid artery. 2. No hemodynamically significant stenosis noted in the left carotid system. 3. The vertebral arteries were not visualized. CT head, 11/09/2024: Acute to subacute infarction of the right frontoparietal lobe with thrombus in the right middle cerebral artery M2 segment. Recommend neurology consultation. Moderate chronic microvascular ischemic changes. MRI head, 11/26/2024: Acute infarction right middle cerebral artery distribution involving the right frontal and parietal lobes. Findings consistent with right M2 middle cerebral artery segment occlusion/thrombosis. Moderate chronic microvascular ischemic changes. EGD, 11/25/2024: 1. Minimal gastroduodenitis 2. Otherwise normal examination up to the 2nd and 3rd part of the duodenal with no fresh or old blood in the upper GI tract vital signs Vital Sign Date Time Temp Pulse Resp B/P (MAP) Pulse Ox O2 Delivery O2 Flow Rate FiO2 11/27/24 05:30 20 97 11/27/24 04:56 98.9 110 148/69 (95) 98.9 11/26/24 20:00 Nasal Cannula* 1 24 Total Intake and Output 11/26/24 11/26/24 11/27/24 15:00 23:00 07:00 Intake Total 50 ml 850 ml 0 ml Output Total 100 ml Balance 50 ml 850 ml -100 ml medications Current Medications Medications Dose Ordered Sig/Delfino Route Start Time Stop Time Status Last Admin Dose Admin Amlodipine Besylate 10 mg DAILY PO 11/22/24 10:00 11/25/24 10:19 10 MG Ipratropium [place] 0.5 mg Q6HWA NEB 11/21/24 22:00 11/27/24 06:09 0.5 MG Hydralazine HCl 10 mg Q4HP PRN IV 11/23/24 09:15 11/23/24 09:34 10 MG Pantoprazole Sodium 40 mg BID IV 11/23/24 22:00 11/26/24 21:09 40 MG Sucralfate 1 gm BID PO 11/25/24 22:00 Amino Acids 0 ml @ 0 mls/hr PER PHARMACY IV 11/25/24 16:05 Diagnostic Test (Pha) 1 strip Q6HR 11/25/24 18:00 11/27/24 05:46 1 STRIP Insulin Human Regular FOLLOW SLIDING SCALE Q6HR SC 11/25/24 18:00 11/27/24 05:46 2 UNITS Dextrose 50 ml UD IV 11/25/24 17:15 Amino Acids/ Electrolytes/ Dextrose 1,000 ml @ 41 mls/hr DAILY@2200 IV 11/25/24 22:00 11/26/24 22:30 41 MLS/HR Ceftriaxone Sodium 50 ml @ 100 mls/hr DAILY@09 IV 11/26/24 09:00 11/26/24 10:10 100 MLS/HR Aspirin 300 mg DAILY AK 11/26/24 16:00 11/26/24 17:04 300 MG Atorvastatin Calcium 40 mg HS PO 11/26/24 22:00 objective General: the patient is well developed and nourished. No acute distress. MENTAL STATUS: Arousable SPEECH, LANGUAGE, HIGHER CORTICAL FUNCTION: He does not vocalize CRANIAL NERVES: Pupils are equal, round and reactive. EOMs full and conjugate. Facial sensation intact in all three divisions bilaterally. Mandibular strength intact. Facial muscles symmetrical and strength intact. SENSATION: Sensation to touch and pinprick is unremarkable MOTOR: Normal tone in the upper and lower extremity. Normal muscle bulk. No fasciculations. No abnormal movements or posturing. He moves the right, but not left extremities REFLEXES: Deep tendon reflexes are symmetrical. 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 Protonix 40 mg b.i.d. Nephrology on case/hemodialysis GI specialist on case More recommendation per clinical course This medical document was created using an electronic medical record system with [employer] dictation system. Although this document has been carefully reviewed, there may still be some phonetic and typographical errors. These areas are purely typographical due to imperfections of the software programs, and do not reflect any compromise in the patient's medical care. Prognosis poor Dietary Evaluation Review Comments: 1) Nepro Carbsteady 240ml TID 2) Consider renal standard diet 3) Monitor PO intake, lab values, weight trend, and I/O Expected Outcomes/Goals: To meet >75% estimated needs lab values to improve Fu 3-5 days Plan discussed with: Daughter, Other Total Time (mins): 40 CC Plasma Assessment Blood Product Administration S: [id number] PATSY SALGADO MD Nov 27, 2024 08:53
[2024-11-27 10:09] LABS: Alanine Aminotransferase 18 U/L (7-40); Albumin 4.1 g/dL (3.2-4.8); Alkaline Phosphatase 106 U/L (46-116); Anion Gap 14 (5-15); BUN/Creatinine Ratio 9.2 (10.0-20.0); Calcium 10.3 mg/dL (8.7-10.4); Carbon Dioxide 28 mmol/L (20-31); Chloride 98 mmol/L (98-107); Magnesium 2.1 mg/dL (1.6-2.6); Potassium 3.5 mmol/L (3.5-5.1); Sodium 140 mmol/L (136-145); Total Protein 6.9 g/dL (5.7-8.2)
[2024-11-27 10:10] LABS: Blood Urea Nitrogen 52 mg/dL (9-23); Cholesterol 156 mg/dL (< 200); Glucose 134 mg/dL (74-106); Triglycerides 203 mg/dL (< 150)
[2024-11-27 10:11] LABS: Bilirubin, Total 0.9 mg/dL (0.2-1.0)
[2024-11-27 10:14] LABS: HDL Cholesterol 21 mg/dL (40-59)
--- NOTE | 2024-11-27 14:36 | ECG ---
[facility] Test Date: 2024-11-27 Test Time: 14:18:53 Pat Name: LAURA NG Department: Room: 0291T B Gender: M Warp Dyeing Vat Tender: misty ceron : 1945 Requested By: BRIE BOLAND Order Number: [id number] Reading MD: Misha Leal Measurements Intervals Preemption Rate: 134 P: 0 MN: 0 QRS: -1 QRSD: 83 T: 87 QT: 343 QTc: 512 Interpretive Statements Atrial fibrillation Ventricular premature complex Probable LVH with secondary repol abnrm ST depression, probably rate related Prolonged QT interval Electronically Signed On 11-27-2024 16:27:38 PDT by Misha Leal Please click the below link to view image of tracing.
--- NOTE | 2024-11-27 17:43 | DVHINCON2 ---
Date Seen: Nov 27, 2024 Referring Physician MD Hayes Reason for Consultation New onset atrial fibrillation History of Present Illness This is a Mongolian-speaking 78-year-old male patient who presents to emergency room with chief complaint of generalized weakness. Cardiology has been consu lted at this time for a change in rhythm. Initial twelve lead electrocardiogram done upon admission reveals a normal sinus rhythm. Today, the bedside RN noted that the patient's heart rate was sustaining greater than 130s. A repeat twelve lead electrocardiogram was done and revealed that the patient was in atrial fibrillation with a rapid ventricular response. After reviewing cardiac rehabilitation program director, the patient noted to go in atrial fibrillation at approximately 1359 today. The time of assessment, the patient remains in atrial fibrillation with uncontrolled rate on cardiac rehabilitation program director. At the time of assessment, the patient is unable to answer all questions given slurred speech and possible confusion. History obtained from bedside RN and medical records. Significant past medical history includes hypertension, dyslipidemia, end-stage renal disease on hemodialysis, COPD, colon cancer with colectomy and colostomy. There is no documented history of atrial fibrillation, but after reviewing external medication reconciliation, the patient is noted to be prescribed Eliquis so history of arrhythmia remains questionable. Of note, during this hos pitalization, the patient showed some neurological changes which prompted primary team to order a head CT which revealed an acute subacute infarction of the right fronto peritoneal lobe with thrombus in the right middle cerebral artery. Past Medical History Past medical history reviewed. No other significant than mentioned above. Past Surgical History Colectomy and colostomy in 2016 Family History: Patient reports no known family medical history. Family History Family history reviewed. Social History Unable to obtain Allergies: Coded Allergies: No Known Drug Allergy (Verified Allergy, Unknown, 11/21/24) Home Meds Home medications reviewed. Current Medications Current Medications Medications (Trade) Dose Ordered Sig/Delfino Route PRN Reason Start Time Stop Time Status Last Admin Atorvastatin Calcium (Lipitor) 40 mg HS PO 11/26/24 22:00 Review of Systems Constitutional: Generalized weakness Ears, Nose, & Throat: No symptom reported Eyes: No symptom reported Neurological: No symptoms reported Pulmonary/Respiratory: No symptoms reported Cardiovascular: No symptom reported Gastrointestinal: No symptom reported Genitourinary: No symptom reported Musculoskeletal: No symptom reported Skin: No symptom reported Psychiatric: No symptom reported Endocrine: No symptom reported Hematologic/Lymphatic: No symptom reported Vital Signs Vital Signs Date Time Temp Pulse Resp B/P (MAP) Pulse Ox O2 Delivery O2 Flow Rate FiO2 11/27/24 17:23 99.1 129 23 129/70 (89) 97 99.1 11/27/24 10:00 Nasal Cannula 2.0 11/27/24 10:00 28 Physical Exam General Appearance: Cooperative. Well-developed. Well-nourished. No acute distress. Pulmonary/Respiratory: Clear, bilateral breaths sounds. Cardiovascular/Chest: Irregularly irregular rate and rhythm. Peripheral Pulses: 2+ Radial (R). 2+ Radial (L). 2+ Pedal (R). 2+ Pedal (L) Abdominal Exam: Normal bowel sounds. Colostomy Ankle Exam: Negative ankle edema Lower extremities: Negative lower extremity edema Neuro/Mental Status: A/OX2, confused. Slurred speech Thoughts/Psych: Deferred Appearance: No acute distress. Skin Exam: Normal inspection. Normal color. Warm and dry. Labs/Diagnostic Data Labs Test 11/27/24 11:49 11/27/24 08:54 11/25/24 09:23 11/25/24 09:22 Range/Units POC Glucose 135 H 70-106 mg/dl Sodium Level 140 136-145 mmol/L Potassium Level 3.5 3.5-5.1 mmol/L Chloride Level 98 98-107 mmol/L Carbon Dioxide Level 28 20-31 mmol/L Anion Gap 14 5-15 Blood Urea Nitrogen 52 H 9-23 mg/dL Creatinine 5.64 H 0.700-1.30 mg/dL Glomerular Filtration Rate Calc 10 >90 mL/min BUN/Creatinine Ratio 9.2 L 10.0-20.0 Serum Glucose 134 H 74-106 mg/dL Calcium Level 10.3 8.7-10.4 mg/dL Phosphorus Level 3.4 2.4-5.1 mg/dL Magnesium Level 2.1 1.6-2.6 mg/dL Total Bilirubin 0.9 0.2-1.0 mg/dL Aspartate Amino Transferase (AST) 20 13-40 U/L Alanine Aminotransferase (ALT) 18 7-40 U/L Alkaline Phosphatase 106 46-116 U/L Total Protein 6.9 5.7-8.2 g/dL Albumin 4.1 3.2-4.8 g/dL Triglycerides Level 203 H < 150 mg/dL Cholesterol Level 156 < 200 mg/dL LDL Cholesterol 93 < 100 mg/dL HDL Cholesterol 21 L 40-59 mg/dL Urine Color Light-brown Yellow Urine Clarity Turbid H Clear Urine pH 8.5 5.0-9.0 Urine Specific [place] 1.011 1.001-1.035 Urine Protein 3+ H Negative Urine Ketones Trace Negative Urine Blood 3+ H Negative /uL Urine Nitrite Negative Negative Urine Bilirubin Negative Negative Urine Urobilinogen Normal Negative mg/dL Urine Leukocyte Esterase 3+ Negative /uL Urine RBC 2271 0 - 3 /hpf Urine WBC Clumps Present None Seen /hpf Urine Microscopic WBC 312 H 0-3 /HPF Urine Squamous Epithelial Cells None seen <5 /hpf Urine Bacteria None seen None Seen /hpf Urine Glucose Trace Normal mg/dL Blood Gas Specimen Type Arterial Blood Gas Sample Site Left radial Blood Gas Patient Temperature 37.0 Arterial Blood Date Drawn [id number] Arterial Blood pH 7.528 H 7.350-7.450 Arterial Blood Partial Pressure CO2 28.5 L 35.0-48.0 mmHg Arterial Blood Partial Pressure O2 81.2 L 83.0-108.0 mmHg Arterial Blood HCO3 23.2 21.0-28.0 mmol/L Arterial Blood Oxygen Saturation 96.0 94.0-98.0 % Arterial Blood Base Excess 1.0 -2.0-3.0 mmol/L Arterial Blood Oxyhemoglobin 94.9 94.0-98.0 % Arterial Blood Carboxyhemoglobin 1.0 0.5-1.5 % Arterial Blood Methemoglobin 0.1 0.0-1.5 % Hugh Test Yes Blood Gas Total Hemoglobin 10.00 L 13.5-17.5 g/dL Blood Gas Liter Flow 1.00 Blood Gas Modality Nasal cannula FiO2 % 24.0 Test 11/25/24 09:04 11/24/24 05:34 11/23/24 06:20 11/23/24 05:50 Range/Units White Blood Count 11.8 H 4.4-10.8 10^3/uL Red Blood Count 3.38 L 4.5-5.90 10^6/uL Hemoglobin 9.9 #L 13.5-17.5 g/dL Hematocrit 31.7 #L 41.0-53.0 % Mean Corpuscular Volume 93.6 # 80.0-100.0 fL Mean Corpuscular Hemoglobin 29.3 28.0-32.0 pg Mean Corpuscular Hemoglobin Concent 31.3 L 32.0-36.0 g/dL Red Cell Distribution Width 20.0 H 11.8-14.3 % Platelet Count 275 140-450 10^3/uL Mean Platelet Volume 8.4 6.9-10.8 fL Neutrophils (%) (Auto) 84.6 H 37.0-80.0 % Lymphocytes (%) (Auto) 5.5 L 10.0-50.0 % Monocytes (%) (Auto) 9.1 0.0-12.0 % Eosinophils (%) (Auto) 0.3 0.0-7.0 % Basophils (%) (Auto) 0.5 0.0-2.0 % Neutrophils # (Auto) 9.9 H 1.6-8.6 10 ^3/uL Lymphocytes # (Auto) 0.6 0.4-5.4 10 ^3/uL Monocytes # (Auto) 1.1 0-1.3 10 ^3/uL Eosinophils # (Auto) 0 0-0.8 10 ^3/uL Basophils # (Auto) 0.1 0-0.2 10 ^3/uL Nucleated Red Blood Cells 0.0 % Prothrombin Time 13.2 H 9.3-11.8 sec Prothrombin Time INR 1.28 H 0.9-1.15 Uric Acid 4.4 3.7-9.2 mg/dL Urine Amorphous Crystals Few None Seen /hpf Urine Opiates Screen Neg NEGATIVE Urine Fentanyl Screen Neg NEGATIVE Urine Barbiturates Screen Neg NEGATIVE Urine Phencyclidine Screen Neg NEGATIVE Urine Amphetamines Screen Neg NEGATIVE Urine Benzodiazepines Screen Neg NEGATIVE Urine Cocaine Screen Neg NEGATIVE Urine Cannabinoids Screen Neg NEGATIVE Test 11/22/24 04:27 11/21/24 20:09 11/21/24 19:45 11/21/24 15:56 Range/Units Hepatitis B Surface Antigen Negative Negative Hepatitis B Surface Antibody Negative Negative Stool Occult Blood Positive Negative Stool Occult Blood Sample #3 Negative Stool for White Cells Few Ammonia < 10 L 11-32 umol/L Vitamin D 25-Hydroxy 52.8 30.0-100 ng/mL Activated Partial Thromboplast Time 41.6 H 24.5-34.5 SEC Test 11/21/24 14:56 11/21/24 11:36 Range/Units Troponin I High Sensitivity 61 *H </=54 ng/L Hemoglobin A1c < 3.8 <5.7 % A1C Lactic Acid Level 1.4 0.4-2.0 mmol/L Iron Level 26 L 65-175 ug/dL Total Iron Binding Capacity 208 L 250-425 ug/dL Percent Iron Saturation 12.5 L 20-55 % Ferritin 869.1 H 22-322 ng/mL Vitamin B12 Level 452 211-911 pg/mL Thyroid Stimulating Hormone (TSH) 2.27 0.55-4.78 uIU/mL Parathyroid Hormone (Intact) 123.5 H 18.4-80.1 pg/mL Microbiology Date/Time Source Procedure Growth Status 11/25/24 09:23 Urine - Midstream Clean Catch Urine Culture - Final Complete 11/22/24 06:00 Nose MRSA Screen - Final Complete Assessment Atrial fibrillation with a rapid ventricular response, ?new onset Severe anemia status post PRBC transfusion Acute right MCA territory CVA NSTEMI, likely type 2 secondary to above Mild tricuspid regurgitation End-stage renal disease on hemodialysis History of colon cancer status post colectomy and colostomy COPD Plan/Recommendation We will continue with the following plan/recommendations (Dr. Leal): * Transthoracic echocardiogram reveals EF 55% * [id number] VASc score: 5 points, HAS-BLED score: 4 points * Hold anticoagulation until GI cleared; SCDs in the meantime * IV digoxin for rate control (patient unable to swallow at this time) * Initiate antiarrhythmic agent amiodarone * Monitor and replete electrolytes as needed, keep potassium greater than four and magnesium greater than two * Closely monitor hemoglobin and hematocrit, transfuse as needed * Close Cardiac surveillance Case discussed with . The patient is now in atrial fibrillation with rapid ventricular response. The patient is currently unable to swallow given acute CVA. We will recommend for loading dose of digoxin for rate control. We will also recommend to initiate antiarrhythmic agent amiodarone at this time. Given that the patient came in with severe anemia requiring blood transfusion, hold off on anticoagulation at this time until patient is cleared by GI to start on anticoagulation. Considering that the patient had an acute CVA, the patient would benefit from anticoagulation and if is unable to be on anticoagulation, consider left atrial appendage occlusion device in the future. Thank you for allowing us to care for this patient. Please call with any questions or concerns. Critical care time spent: 44 minutes This medical document was created using an electronic medical record system with voice recognition software and computerized dictation system. Although this document has been carefully reviewed, there might still be some phonetic and typographical errors. Occasional wrong-word or ``sound-alike substitutions may have occurred due to the inherent limitations of voice recognition software. These areas are purely typographical due to imperfections of the software programs and do not reflect any compromise in the patient's medical care. Please read the chart carefully and recognize, using context, where these substitutions have occurred. Plan discussed with: Patient, Other (Bedside RN) NYHA Physical activity limitations: NA Date of Service: Nov 27, 2024 Billing Provider: ENMANUEL OCHOA Cardiology Common Codes: 31948-[id number] INP/OBS CARE (High) Cardiology Consultation Codes: [id number] CONSULT <45MIN ENMANUEL OCHOA Nov 27, 2024 17:43
--- NOTE | 2024-11-27 17:49 | DVHPN2 ---
Subjective Patient's daughter was updated at bedside . Earlier bedside RN Seble told me that patient removed his colostomy bag and it was agitated. Patient was examined by me stat head CT was ordered which shows evidence of right MCA CVA. Daughter was updated regarding current plan of care who understand verbalized understanding and agreeable to plan. Swallow evaluation and physical therapy has been ordered Changes from previous H/P or p: No Changes Objective Vitals Vital Signs Date Time Temp Pulse Resp B/P (MAP) Pulse Ox O2 Delivery O2 Flow Rate FiO2 11/27/24 17:23 99.1 129 23 129/70 (89) 97 99.1 11/27/24 10:00 Nasal Cannula 2.0 11/27/24 10:00 28 Intake/Output Intake and Output 11/27/24 07:00 Intake Total 900 ml Output Total 100 ml Balance 800 ml Intake Oral 0 ml IV Total 900 ml Output Urine Total 100 ml Exam HEENT pupils are reactive Neck is supple CV is S1-S2 regular rate and rhythm Respiratory diminished breath sounds bases GI positive bowel sound , positive colostomy Extremity no edema TRAINING INTERN does not follow commands opens eyes to verbal commands. Medications Current Medications Medications Dose Ordered Sig/Delfino Route Start Time Stop Time Status Last Admin Dose Admin Amlodipine Besylate 10 mg DAILY PO 11/22/24 10:00 11/25/24 10:19 10 MG Ipratropium White 0.5 mg Q6HWA NEB 11/21/24 22:00 11/27/24 12:10 0.5 MG Hydralazine HCl 10 mg Q4HP PRN IV 11/23/24 09:15 11/23/24 09:34 10 MG Pantoprazole Sodium 40 mg BID IV 11/23/24 22:00 11/27/24 09:53 40 MG Sucralfate 1 gm BID PO 11/25/24 22:00 Amino Acids 0 ml @ 0 mls/hr PER PHARMACY IV 11/25/24 16:05 Diagnostic Test (Pha) 1 strip Q6HR 11/25/24 18:00 11/27/24 11:56 1 STRIP Insulin Human Regular FOLLOW SLIDING SCALE Q6HR SC 11/25/24 18:00 11/27/24 11:57 2 UNITS Dextrose 50 ml UD IV 11/25/24 17:15 Amino Acids/ Electrolytes/ Dextrose 1,000 ml @ 41 mls/hr DAILY@2200 IV 11/25/24 22:00 11/26/24 22:30 41 MLS/HR Ceftriaxone Sodium 50 ml @ 100 mls/hr DAILY@09 IV 11/26/24 09:00 11/27/24 09:53 100 MLS/HR Aspirin 300 mg DAILY MA 11/26/24 16:00 11/27/24 10:33 300 MG Atorvastatin Calcium 40 mg HS PO 11/26/24 22:00 Laboratory Results Laboratory Tests 11/25/24 09:04 11/27/24 08:54 Chemistry Test 11/27/24 08:54 Albumin 4.1 g/dL (3.2-4.8) Calcium Level 10.3 mg/dL (8.7-10.4) Magnesium Level 2.1 mg/dL (1.6-2.6) Phosphorus Level 3.4 mg/dL (2.4-5.1) Total Protein 6.9 g/dL (5.7-8.2) Lipid panel Test 11/27/24 08:54 Cholesterol Level 156 mg/dL (< 200) HDL Cholesterol 21 mg/dL (40-59) L Triglycerides Level 203 mg/dL (< 150) H LFT Test 11/27/24 08:54 Alanine Aminotransferase (ALT) 18 U/L (7-40) Alkaline Phosphatase 106 U/L (46-116) Aspartate Amino Transferase (AST) 20 U/L (13-40) Total Bilirubin 0.9 mg/dL (0.2-1.0) Urinalysis Test 11/23/24 05:50 11/25/24 09:23 Urine Amorphous Crystals Few /hpf (None Seen) Urine Color Light-brown (Yellow) Urine Clarity Turbid (Clear) H Urine pH 8.5 (5.0-9.0) Urine Specific [place] 1.011 (1.001-1.035) Urine Protein 3+ (Negative) H Urine Ketones Trace (Negative) Urine Blood 3+ /uL (Negative) H Urine Nitrite Negative (Negative) Urine Bilirubin Negative (Negative) Urine Urobilinogen Normal mg/dL (Negative) Urine Leukocyte Esterase 3+ /uL (Negative) Urine RBC 2271 /hpf (0 - 3) Urine WBC Clumps Present /hpf (None Seen) Urine Microscopic WBC 312 /HPF (0-3) H Urine Squamous Epithelial Cells None seen /hpf (<5) Urine Bacteria None seen /hpf (None Seen) Urine Glucose Trace mg/dL (Normal) Microbiology Microbiology Date/Time Source Procedure Growth Status 11/25/24 09:23 Urine - Midstream Clean Catch Urine Culture - Final Complete 11/22/24 06:00 Nose MRSA Screen - Final Complete Assessment/Plan Assessment/Plan 78-year-old male with a known history of colon cancer status post partial colectomy status post oral chemotherapy currently in remission, end-stage renal disease on hemodialysis, hypertension, COPD initially presented to hospital with a black tarry stools found to have 1. Acute/subacute right MCA 2. Acute delirium/acute encephalopathy suspect secondary to acute CVA 3.Melanotic stools rule out upper GI bleed, status post EGD showed gastro duodenitis 4. History of colon cancer status post partial colectomy status post chemotherapy, status post colostomy 5. End-stage renal disease on hemodialysis 6.. Hypertension 7. COPD -aspirin, statin, Plavix MRI brain noncontrast, neurology consultation -new Protonix and Carafate -I updated daughter regarding current condition including acute/subacute stroke she understand verbalized understanding and agreeable to plan.. Plan discussed with: Patient My Orders Orders - BRIE BOLAND MD Procedure Category Date Status Time Electrocardigram EKG 11/27/24 Logged 01:30 Electrocardigram EKG 11/27/24 Resulted 01:30 * Cardiology Consult CONS 11/27/24 Transmitted 14:29 * Protection Officer CONS 11/27/24 Transmitted Consult Comprehensive LAB 11/28/24 Verified Metabolic Panel 05:00 Magnesium LAB 11/28/24 Verified 05:00 Phosphorus LAB 11/28/24 Verified 05:00 Date of Service: Nov 27, 2024 Billing Provider: BRIE BOLAND MD Common Visit Codes: [id number] INP/OBS CARE(MOD) BRIE BOLAND MD Nov 27, 2024 17:49
--- NOTE | 2024-11-27 18:57 | DVHSR ---
APPROVED REPORT EXAM: Two-dimensional and M-mode echocardiogram with Doppler, color Doppler and Bubble Study. Blood Pressure: 148/69 mmHg INDICATION CVA/TIA: RISK FACTORS Height: 5'6", Weight: 110 DIMENSIONS LVDd4.7 (3.8-5.7cm)LA (2D)4.6 (1.9-4.0cm)Aortic Root3.4 (2.0-3.7cm) LVDs3.6 (2.5-4.0cm)LA (MM) (1.9-4.0cm)Aortic Cusp Exc1.1 (1.5-2.0cm) EF (%) 48.0 (55-70%)Rt. Atrium3.7 (1.9-4.0cm)Asc. Aorta cm IVSd1.2 (0.7-1.1cm)RV (D) (1.8-2.4cm) PWd1.3 (0.7-1.1cm) Mitral Valve MitralMitral Stenosis E/A ratio0.02D MVAcm2 Aortic Valve Aortic ValveAortic Stenosis V10.82m/Rocael Mean GR.9mmHg V22.01m/Rocael Peak GR.16mmHg LVOT Diameter2.0 (1.8-2.4cm)Doppler AVA1.28cm2 AI P /2 Lgvx968.36ms Other Information Quality : Technically LimitedRhythm : Technically limited study due to patient position. Conclusion Sinus rhythm. Concentric LVH with left atrial enlargement and aortic root enlargement. Dilation of the sinuses of Valsalva. Moderate mitral annular calcification of the base of the posterior mitral leaflet. The aortic and tr icuspid appear to be structurally normal. Left ventricular systolic performance appears to be preserved. EF is about 55%. There is impaired d iastolic relaxation. Normal RV function. There is mild aortic insufficiency. Mild tricuspid regurgitation. No pericardial effusion masses or vegetations.
--- NOTE | 2024-11-27 20:04 | DVHPN2 ---
Progress Note Date Seen: Nov 27, 2024 Medical Necessity Reason Pt with a Central, PICC or Fol: Yes The following are medically ne: Ashraf Catheter Subjective Patient reports: Other (events noted) Review of Systems: NEURO:Abnormal Objective vital signs Vital Sign Date Time Temp Pulse Resp B/P (MAP) Pulse Ox O2 Delivery O2 Flow Rate FiO2 11/27/24 18:54 98 Nasal Cannula 4.0 11/27/24 18:54 110 16 11/27/24 18:54 36 11/27/24 17:23 99.1 129/70 (89) 99.1 Total Intake and Output 11/26/24 11/26/24 11/27/24 15:00 23:00 07:00 Intake Total 50 ml 850 ml 0 ml Output Total 100 ml Balance 50 ml 850 ml -100 ml medications Current Medications Medications Dose Ordered Sig/Delfino Route Start Time Stop Time Status Last Admin Dose Admin Amlodipine Besylate 10 mg DAILY PO 11/22/24 10:00 11/25/24 10:19 10 MG Ipratropium [place] 0.5 mg Q6HWA NEB 11/21/24 22:00 11/27/24 18:54 0.5 MG Hydralazine HCl 10 mg Q4HP PRN IV 11/23/24 09:15 11/23/24 09:34 10 MG Pantoprazole Sodium 40 mg BID IV 11/23/24 22:00 11/27/24 09:53 40 MG Sucralfate 1 gm BID PO 11/25/24 22:00 Amino Acids 0 ml @ 0 mls/hr PER PHARMACY IV 11/25/24 16:05 Diagnostic Test (Pha) 1 strip Q6HR 11/25/24 18:00 11/27/24 18:13 1 STRIP Insulin Human Regular FOLLOW SLIDING SCALE Q6HR SC 11/25/24 18:00 11/27/24 18:14 4 UNITS Dextrose 50 ml UD IV 11/25/24 17:15 Amino Acids/ Electrolytes/ Dextrose 1,000 ml @ 41 mls/hr DAILY@2200 IV 11/25/24 22:00 11/26/24 22:30 41 MLS/HR Ceftriaxone Sodium 50 ml @ 100 mls/hr DAILY@09 IV 11/26/24 09:00 11/27/24 09:53 100 MLS/HR Aspirin 300 mg DAILY RI 11/26/24 16:00 11/27/24 10:33 300 MG Atorvastatin Calcium 40 mg HS PO 11/26/24 22:00 Examination: NEURO:Abnormal laboratory and microbiology Laboratory Tests 11/27/24 08:54 11/25/24 09:04 Test 11/27/24 08:54 Range/Units Serum Glucose 134 H 74-106 mg/dL Microbiology Date/Time Source Procedure Growth Status 11/25/24 09:23 Urine - Midstream Clean Catch Urine Culture - Final Complete 11/22/24 06:00 Nose MRSA Screen - Final Complete Problem List/Assessment/Plan Problem List/Assessment/Plan 1. ESRD on HD- 2. HTN 3. hx of COPD 4. Anemia s/p PRBC transfusion CVA fronto parietal recs HD 11/28 s/p EGD outpt urology eval Plan discussed with: Other Dietary Evaluation Review Comments: 1) Nepro Carbsteady 240ml TID 2) Consider renal standard diet 3) Monitor PO intake, lab values, weight trend, and I/O Expected Outcomes/Goals: To meet >75% estimated needs lab values to improve Fu 3-5 days CC Plasma Assessment Blood Product Administration S: [id number] GERMAN WATERMAN MD Nov 27, 2024 20:04
[2024-11-27] MEDS: DIGOXIN (250MCG/ML) 2 ML AMPULE IV ONE (21:13)
[2024-11-27] MEDS: AMIODARONE 360mg/200mL PREMIX 200 ML IV ONE (21:14)
[2024-11-27] MEDS: AMIODARONE BOLUS KIT 100 ML IV ONE (21:14)
--- NOTE | 2024-11-27 21:30 | DVHPN2 ---
Progress Note Date Seen: Nov 27, 2024 Resident Creating Document: ROBLES SWEENEY RESIDENT Has the PT tested + for MRSA If YES, has PT been informed?: No Medical Necessity Reason Pt with a Central, PICC or Fol: Yes The following are medically ne: Ashraf Catheter Subjective Review of Systems 78-year-old male with a history of colon cancer (s/p partial colectomy, chemotherapy, colostomy), ESRD on hemodialysis, hypertension, COPD, and dyslipidemia. He was admitted with generalized weakness, melena, and severe anemia requiring PRBC transfusion. 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 Currently lethargic, minimally verbal, and non-compliant with bowel prep. Daughter updated at bedside and agreed to the plan. * Colostomy: Patient previously removed his colostomy bag; wound/ostomy care ongoing. * Neurologic: Post-stroke, he is unable to swallow safely and has poor oral intake. * Feeds: Receiving IV amino acid infusion in D10W; minimal oral intake. NG tube consideration if prolonged hospitalization. * Antibiotics: On IV ceftriaxone for UTI. Todays Progress, Labs, Imaging, and Plan Clinical Updates * No active GI bleeding reported today. * H/H stable post-transfusion (Hgb 9.4, Hct 25.1). * Patient remains lethargic, requires supportive care, and close monitoring of colostomy output. Stroke Updates * CT Head (11/26): Acute to subacute right frontoparietal infarction with thrombus in right MCA M2 segment. No hemorrhage. * MRI Brain (11/26): Confirms right MCA infarction with M2 segment occlusion, moderate chronic microvascular ischemic changes, and indeterminate occipital scalp mass. * Carotid Doppler: 5069% focal stenosis in the mid right ICA; no significant left-sided stenosis. * Neurology: Managing acute stroke; patient remains NPO except for medications until swallow evaluation. Echo Findings * Transthoracic Echocardiogram: EF 55%, concentric LVH, mild aortic insufficiency, mild tricuspid regurgitation, moderate mitral annular calcification, impaired diastolic relaxation, no vegetations or pericardial effusion. Anticoagulation Plan * Anticoagulation currently held due to recent GI bleeding and severe anemia. Objective vital signs Vital Sign Date Time Temp Pulse Resp B/P (MAP) Pulse Ox O2 Delivery O2 Flow Rate FiO2 11/27/24 21:13 147 11/27/24 18:59 16 100 11/27/24 18:54 Nasal Cannula 4.0 11/27/24 18:54 36 11/27/24 17:23 99.1 129/70 (89) 99.1 Total Intake and Output 11/26/24 11/26/24 11/27/24 15:00 23:00 07:00 Intake Total 50 ml 850 ml 0 ml Output Total 100 ml Balance 50 ml 850 ml -100 ml medications Current Medications Medications Dose Ordered Sig/Delfino Route Start Time Stop Time Status Last Admin Dose Admin Amlodipine Besylate 10 mg DAILY PO 11/22/24 10:00 11/25/24 10:19 10 MG Ipratropium [place] 0.5 mg Q6HWA NEB 11/21/24 22:00 11/27/24 18:54 0.5 MG Hydralazine HCl 10 mg Q4HP PRN IV 11/23/24 09:15 11/23/24 09:34 10 MG Pantoprazole Sodium 40 mg BID IV 11/23/24 22:00 11/27/24 09:53 40 MG Sucralfate 1 gm BID PO 11/25/24 22:00 Amino Acids 0 ml @ 0 mls/hr PER PHARMACY IV 11/25/24 16:05 Diagnostic Test (Pha) 1 strip Q6HR 11/25/24 18:00 11/27/24 18:13 1 STRIP Insulin Human Regular FOLLOW SLIDING SCALE Q6HR SC 11/25/24 18:00 11/27/24 18:14 4 UNITS Dextrose 50 ml UD IV 11/25/24 17:15 Amino Acids/ Electrolytes/ Dextrose 1,000 ml @ 41 mls/hr DAILY@2200 IV 11/25/24 22:00 11/26/24 22:30 41 MLS/HR Ceftriaxone Sodium 50 ml @ 100 mls/hr DAILY@09 IV 11/26/24 09:00 11/27/24 09:53 100 MLS/HR Aspirin 300 mg DAILY RI 11/26/24 16:00 11/27/24 10:33 300 MG Atorvastatin Calcium 40 mg HS PO 11/26/24 22:00 Examination * General: Lethargic, non-verbal, weak. * Abdomen: LLQ colostomy with intact appliance; parastomal hernia noted; non- tender. * Other: Consistent with left-sided neurologic deficits. laboratory and microbiology Laboratory Tests 11/27/24 08:54 11/25/24 09:04 Test 11/27/24 08:54 Range/Units Serum Glucose 134 H 74-106 mg/dL Microbiology Date/Time Source Procedure Growth Status 11/25/24 09:23 Urine - Midstream Clean Catch Urine Culture - Final Complete 11/22/24 06:00 Nose MRSA Screen - Final Complete Problem List/Assessment/Plan Problem List/Assessment/Plan Assessment 1. Upper GI bleed with melena resolved; no active bleeding on recent EGD. 2. Gastroduodenitis minimal on EGD; continue PPI and Carafate. 3. Severe anemia multifactorial (GI loss, CKD); improved post-PRBC transfusion. 4. Colostomy with parastomal hernia stable; continue care. 5. ESRD on HD continue dialysis support. 6. Acute right MCA stroke under neurology care; poor swallow; NPO with IV nutrition. 7. Atrial fibrillation with RVR cardiology following; anticoagulation deferred. 8. Malnutrition risk poor oral intake, IV amino acid support ongoing. Plan (GI Specific + Saeed System Updates) Gastrointestinal * Continue Pantoprazole 40 mg IV BID and Carafate 1 g BID. * Monitor colostomy output; ensure ostomy care. * Monitor for recurrent GI bleeding. * Continue IV amino acid infusion in D10W for nutrition; consider NG tube feeding if oral intake remains poor. * Avoid NSAIDs Neurology * Continue stroke protocol; neurology following. * Maintain aspiration precautions; swallow evaluation ongoing. * PT/OT/rehab when feasible. Cardiology * Atrial fibrillation with RVR rate control per cardiology; on IV AMIODARONE. * Anticoagulation held due to GI bleed risk; reassess after stabilization. * Close cardiac surveillance. Hematology * Monitor H/H daily; transfuse PRN (Hgb <7). * Avoid anticoagulation Renal * Continue nephrology involvement; hemodialysis per schedule. * Monitor electrolytes and adjust per labs. Case discussed in detail with the attending physician, including the clinical presentation, diagnostic workup, and comprehensive management plan. Plan discussed with: Daughter Dietary Evaluation Review Comments: 1) Nepro Carbsteady 240ml TID 2) Consider renal standard diet 3) Monitor PO intake, lab values, weight trend, and I/O Expected Outcomes/Goals: To meet >75% estimated needs lab values to improve Fu 3-5 days CC Plasma Assessment Blood Product Administration S: [id number] ROBLES SWEENEY RESIDENT Nov 27, 2024 21:30
[2024-11-27] MEDS: DIGOXIN (250MCG/ML) 2 ML AMPULE ONE (21:38)
[2024-11-28] VITALS (18 sets, daily range): BP systolic 136–155; BP diastolic 59–79; PULSE 76–120; RESP 16–24; TEMP 97.4–99.1; O2SAT 92–97
[2024-11-28] MEDS: METOPROLOL TARTRATE 1MG/1ML-5ML VIAL IV ONE (02:30)
[2024-11-28] MEDS: AMIODARONE 360mg/200mL PREMIX 200 ML IV SCH (04:30)
[2024-11-28 06:48] LABS: Alanine Aminotransferase 18 U/L (7-40); Albumin 3.5 g/dL (3.2-4.8); Alkaline Phosphatase 110 U/L (46-116); Anion Gap 15 (5-15); BUN/Creatinine Ratio 10.1 (10.0-20.0); Blood Urea Nitrogen 72 mg/dL (9-23); Calcium 8.8 mg/dL (8.7-10.4); Carbon Dioxide 24 mmol/L (20-31); Chloride 99 mmol/L (98-107); Glucose 154 mg/dL (74-106); Magnesium 2.0 mg/dL (1.6-2.6); Potassium 4.0 mmol/L (3.5-5.1); Sodium 138 mmol/L (136-145); Total Protein 6.1 g/dL (5.7-8.2)
[2024-11-28 06:50] LABS: Bilirubin, Total 0.8 mg/dL (0.2-1.0)
--- NOTE | 2024-11-28 08:01 | ECG ---
[facility] Test Date: 2024-11-24 Test Time: 21:25:01 Pat Name: LAURA NG Department: Room: 0284T Gender: M [employer]: jie : 1945 Requested By: BRIE BOLAND Order Number: [id number] Reading MD: Misha Leal Measurements Intervals [place] Rate: 125 P: 76 TN: 128 QRS: 17 QRSD: 100 T: 98 QT: 336 QTc: 485 Interpretive Statements Sinus tachycardia Anterior infarct, old Nonspecific T abnormalities, lateral leads Electronically Signed On 12-01-2024 21:35:01 PDT by Misha Leal Please click the below link to view image of tracing.
--- NOTE | 2024-11-28 10:53 | DVHPN2 ---
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 Objective vital signs Vital Sign Date Time Temp Pulse Resp B/P (MAP) Pulse Ox O2 Delivery O2 Flow Rate FiO2 11/28/24 07:23 76 22 96 11/28/24 07:15 Nasal Cannula* 4 36 11/28/24 05:00 98.8 155/67 (96) 98.8 Total Intake and Output 11/27/24 11/27/24 11/28/24 14:59 22:59 06:59 Intake Total 50 ml 0 ml Output Total 75 ml Balance 50 ml -75 ml medications Current Medications Medications Dose Ordered Sig/Delfino Route Start Time Stop Time Status Last Admin Dose Admin Amlodipine Besylate 10 mg DAILY PO 11/22/24 10:00 11/25/24 10:19 10 MG Ipratropium [place] 0.5 mg Q6HWA NEB 11/21/24 22:00 11/28/24 07:15 0.5 MG Hydralazine HCl 10 mg Q4HP PRN IV 11/23/24 09:15 11/23/24 09:34 10 MG Pantoprazole Sodium 40 mg BID IV 11/23/24 22:00 11/28/24 10:32 40 MG Sucralfate 1 gm BID PO 11/25/24 22:00 Amino Acids 0 ml @ 0 mls/hr PER PHARMACY IV 11/25/24 16:05 Diagnostic Test (Pha) 1 strip Q6HR 11/25/24 18:00 11/28/24 06:18 1 STRIP Insulin Human Regular FOLLOW SLIDING SCALE Q6HR SC 11/25/24 18:00 11/28/24 06:20 4 UNITS Dextrose 50 ml UD IV 11/25/24 17:15 Amino Acids/ Electrolytes/ Dextrose 1,000 ml @ 41 mls/hr DAILY@2200 IV 11/25/24 22:00 11/27/24 21:40 41 MLS/HR Ceftriaxone Sodium 50 ml @ 100 mls/hr DAILY@09 IV 11/26/24 09:00 11/28/24 10:32 100 MLS/HR Aspirin 300 mg DAILY TN 11/26/24 16:00 11/27/24 10:33 300 MG Atorvastatin Calcium 40 mg HS PO 11/26/24 22:00 Examination: GENERAL:Abnormal, LUNGS:Normal, CVS:Normal, NEURO:Abnormal (Confused, slurred speech) laboratory and microbiology Laboratory Tests 11/28/24 05:13 11/25/24 09:04 Test 11/28/24 05:13 Range/Units Serum Glucose 154 H 74-106 mg/dL Problem List/Assessment/Plan Problem List/Assessment/Plan Atrial fibrillation with a rapid ventricular response, ?new onset, now normal sinus rhythm Severe anemia status post PRBC transfusion Acute right MCA territory CVA NSTEMI, likely type 2 secondary to above Mild tricuspid regurgitation End-stage renal disease on hemodialysis History of colon cancer status post colectomy and colostomy COPD Plan/Recommendations (Dr. Leal): * Transthoracic echocardiogram reveals EF 55% * [id number] VASc score: 5 points, HAS-BLED score: 4 points * Hold anticoagulation until GI cleared; SCDs in the meantime * Transition antiarrhythmic agent, amiodarone to oral (consider NG tube if patient can not swallow) * Monitor and replete electrolytes as needed, keep potassium greater than four and magnesium greater than two * Closely monitor hemoglobin and hematocrit, transfuse as needed * Close Cardiac surveillance Case discussed with . Given that the patient came in with severe anemia requiring blood transfusion, hold off on anticoagulation at this time until patient is cleared by GI to start on anticoagulation. Considering that the patient had an acute CVA, the patient would benefit from anticoagulation and if is unable to be on anticoagulation, consider left atrial appendage occlusion device in the future. Thank you for allowing us to care for this patient. Please call with any questions or concerns. This medical document was created using an electronic medical record system with voice recognition software and computerized dictation system. Although this document has been carefully reviewed, there might still be some phonetic and typographical errors. Occasional wrong-word or ``sound-alike substitutions may have occurred due to the inherent limitations of voice recognition software. These areas are purely typographical due to imperfections of the software programs and do not reflect any compromise in the patient's medical care. Please read the chart carefully and recognize, using context, where these substitutions have occurred. Plan discussed with: Other (Bedside RN) Dietary Evaluation Review Comments: 1) Nepro Carbsteady 240ml TID 2) Consider renal standard diet 3) Monitor PO intake, lab values, weight trend, and I/O Expected Outcomes/Goals: To meet >75% estimated needs lab values to improve Fu 3-5 days CC Plasma Assessment Blood Product Administration S: [id number] Date of Service: Nov 28, 2024 Billing Provider: ENMANUEL OCHOA Common Visit Codes: [id number] INP/OBS CARE(HIGH) ENMANUEL OCHOA Nov 28, 2024 10:53
--- NOTE | 2024-11-28 15:41 | DVHPN2 ---
Progress Note Date Seen: Nov 28, 2024 Has the PT tested + for MRSA If YES, has PT been informed?: No Medical Necessity Reason Pt with a Central, PICC or Fol: Yes The following are medically ne: Ashraf Catheter Subjective Patient reports: No new complaints Objective vital signs Vital Sign Date Time Temp Pulse Resp B/P (MAP) Pulse Ox O2 Delivery O2 Flow Rate FiO2 11/28/24 13:00 98.5 82 16 136/59 (84) 94 98.5 11/28/24 10:02 Nasal Cannula* 2 28 Total Intake and Output 11/27/24 11/27/24 11/28/24 15:00 23:00 07:00 Intake Total 50 ml 0 ml Output Total 75 ml Balance 50 ml -75 ml medications Current Medications Medications Dose Ordered Sig/Delfino Route Start Time Stop Time Status Last Admin Dose Admin Amlodipine Besylate 10 mg DAILY PO 11/22/24 10:00 11/25/24 10:19 10 MG Ipratropium [place] 0.5 mg Q6HWA NEB 11/21/24 22:00 11/28/24 12:23 0.5 MG Hydralazine HCl 10 mg Q4HP PRN IV 11/23/24 09:15 11/23/24 09:34 10 MG Pantoprazole Sodium 40 mg BID IV 11/23/24 22:00 11/28/24 10:32 40 MG Sucralfate 1 gm BID PO 11/25/24 22:00 Amino Acids 0 ml @ 0 mls/hr PER PHARMACY IV 11/25/24 16:05 Diagnostic Test (Pha) 1 strip Q6HR 11/25/24 18:00 11/28/24 12:23 1 STRIP Insulin Human Regular FOLLOW SLIDING SCALE Q6HR SC 11/25/24 18:00 11/28/24 12:23 2 UNITS Dextrose 50 ml UD IV 11/25/24 17:15 Amino Acids/ Electrolytes/ Dextrose 1,000 ml @ 41 mls/hr DAILY@2200 IV 11/25/24 22:00 11/27/24 21:40 41 MLS/HR Ceftriaxone Sodium 50 ml @ 100 mls/hr DAILY@09 IV 11/26/24 09:00 11/28/24 10:32 100 MLS/HR Aspirin 300 mg DAILY CO 11/26/24 16:00 11/27/24 10:33 300 MG Atorvastatin Calcium 40 mg HS PO 11/26/24 22:00 Amiodarone HCl 200 mg Q12HR PO 11/28/24 22:00 Examination Gen: NAD Lungs: CTA, bilateral air entry Heart: RRR, normal S1 and S2 Abd: Soft, nontender, nondistended Ext: No edema Neuro: Awake, nonverbal laboratory and microbiology Laboratory Tests 11/28/24 05:13 11/25/24 09:04 Test 11/28/24 05:13 Range/Units Serum Glucose 154 H 74-106 mg/dL Microbiology Date/Time Source Procedure Growth Status 11/25/24 09:23 Urine - Midstream Clean Catch Urine Culture - Final Complete 11/22/24 06:00 Nose MRSA Screen - Final Complete Labs and/or images reviewed: Labs reviewed by me Problem List/Assessment/Plan Problem List/Assessment/Plan IMP 1. ESRD on HD 2. HTN 3. hx of COPD 4. Anemia s/p PRBC transfusion 5. CVA fronto parietal REC - BMP - HD tentatively 11/29 - Strict I&Os - Blood pressure control - Will continue to follow Case discussed with Dr. Camden Saleem Plan discussed with: Patient Dietary Evaluation Review Comments: 1) Nepro Carbsteady 240ml TID 2) Consider renal standard diet 3) Monitor PO intake, lab values, weight trend, and I/O Expected Outcomes/Goals: To meet >75% estimated needs lab values to improve Fu 3-5 days CC Plasma Assessment Blood Product Administration S: [id number] EVELINE HERNANDEZ Nov 28, 2024 15:41
--- NOTE | 2024-11-28 17:09 | DVHPN2 ---
Subjective Patient's daughter was updated at bedside patient failed swallow evaluation currently on Changes from previous H/P or p: No Changes Objective Vitals Vital Signs Date Time Temp Pulse Resp B/P (MAP) Pulse Ox O2 Delivery O2 Flow Rate FiO2 11/28/24 13:00 98.5 82 16 136/59 (84) 94 98.5 11/28/24 12:23 Nasal Cannula* 2 28 Intake/Output Intake and Output 11/28/24 07:00 Intake Total 50 ml Output Total 75 ml Balance -25 ml Intake Oral 0 ml IV Total 50 ml Output Urine Total 75 ml Exam HEENT pupils are reactive Neck is supple CV is S1-S2 regular rate and rhythm Respiratory diminished breath sounds bases GI positive bowel sound , positive colostomy Extremity no edema 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 ARTIST follows command minimally, wiggling toes left side, right-sided neglect Medications Current Medications Medications Dose Ordered Sig/Delfino Route Start Time Stop Time Status Last Admin Dose Admin Amlodipine Besylate 10 mg DAILY PO 11/22/24 10:00 11/25/24 10:19 10 MG Ipratropium [place] 0.5 mg Q6HWA NEB 11/21/24 22:00 11/28/24 12:23 0.5 MG Hydralazine HCl 10 mg Q4HP PRN IV 11/23/24 09:15 11/23/24 09:34 10 MG Pantoprazole Sodium 40 mg BID IV 11/23/24 22:00 11/28/24 10:32 40 MG Sucralfate 1 gm BID PO 11/25/24 22:00 Amino Acids 0 ml @ 0 mls/hr PER PHARMACY IV 11/25/24 16:05 Diagnostic Test (Pha) 1 strip Q6HR 11/25/24 18:00 11/28/24 12:23 1 STRIP Insulin Human Regular FOLLOW SLIDING SCALE Q6HR SC 11/25/24 18:00 11/28/24 12:23 2 UNITS Dextrose 50 ml UD IV 11/25/24 17:15 Amino Acids/ Electrolytes/ Dextrose 1,000 ml @ 41 mls/hr DAILY@2200 IV 11/25/24 22:00 11/27/24 21:40 41 MLS/HR Ceftriaxone Sodium 50 ml @ 100 mls/hr DAILY@09 IV 11/26/24 09:00 11/28/24 10:32 100 MLS/HR Aspirin 300 mg DAILY CO 11/26/24 16:00 11/27/24 10:33 300 MG Atorvastatin Calcium 40 mg HS PO 11/26/24 22:00 Amiodarone HCl 200 mg Q12HR PO 11/28/24 22:00 Laboratory Results Laboratory Tests 11/25/24 09:04 11/28/24 05:13 Chemistry Test 11/28/24 05:13 Albumin 3.5 g/dL (3.2-4.8) Calcium Level 8.8 mg/dL (8.7-10.4) Magnesium Level 2.0 mg/dL (1.6-2.6) Phosphorus Level 4.6 mg/dL (2.4-5.1) Total Protein 6.1 g/dL (5.7-8.2) LFT Test 11/28/24 05:13 Alanine Aminotransferase (ALT) 18 U/L (7-40) Alkaline Phosphatase 110 U/L (46-116) Aspartate Amino Transferase (AST) 23 U/L (13-40) Total Bilirubin 0.8 mg/dL (0.2-1.0) Urinalysis Test 11/23/24 05:50 11/25/24 09:23 Urine Amorphous Crystals Few /hpf (None Seen) Urine Color Light-brown (Yellow) Urine Clarity Turbid (Clear) H Urine pH 8.5 (5.0-9.0) Urine Specific [place] 1.011 (1.001-1.035) Urine Protein 3+ (Negative) H Urine Ketones Trace (Negative) Urine Blood 3+ /uL (Negative) H Urine Nitrite Negative (Negative) Urine Bilirubin Negative (Negative) Urine Urobilinogen Normal mg/dL (Negative) Urine Leukocyte Esterase 3+ /uL (Negative) Urine RBC 2271 /hpf (0 - 3) Urine WBC Clumps Present /hpf (None Seen) Urine Microscopic WBC 312 /HPF (0-3) H Urine Squamous Epithelial Cells None seen /hpf (<5) Urine Bacteria None seen /hpf (None Seen) Urine Glucose Trace mg/dL (Normal) Microbiology Microbiology Date/Time Source Procedure Growth Status 11/25/24 09:23 Urine - Midstream Clean Catch Urine Culture - Final Complete 11/22/24 06:00 Nose MRSA Screen - Final Complete Assessment/Plan Assessment/Plan 78-year-old male with a known history of colon cancer status post partial colectomy status post oral chemotherapy currently in remission, end-stage renal disease on hemodialysis, hypertension, COPD initially presented to hospital with a black tarry stools found to have 1. Acute/subacute right MCA 2. Acute delirium/acute encephalopathy suspect secondary to acute CVA 3.Melanotic stools rule out upper GI bleed, status post EGD showed gastro duodenitis 4. History of colon cancer status post partial colectomy status post chemotherapy, status post colostomy 5. End-stage renal disease on hemodialysis 6.. Hypertension 7. COPD -aspirin, statin, neurology consultation appreciated -new Protonix and Carafate -start Clinimix. -I updated daughter regarding current condition including acute/subacute stroke she understand verbalized understanding and agreeable to plan.. Plan discussed with: Patient, Daughter My Orders Orders - BRIE BOLAND MD Procedure Category Date Status Time Clinimix Per Pharmacy SON[facility] 11/28/24 In Process 22:00 Comprehensive LAB 11/29/24 Verified Metabolic Panel 04:00 Magnesium LAB 11/29/24 Verified 04:00 Phosphorus LAB 11/29/24 Verified 04:00 Date of Service: Nov 28, 2024 Billing Provider: BRIE BOLAND MD Common Visit Codes: [id number] INP/OBS CARE(MOD) BRIE BOLAND MD Nov 28, 2024 17:09
--- NOTE | 2024-11-28 17:41 | DVHPN2 ---
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 The patient remains non-verbal, unable to communicate effectively, and continues to have poor oral intake due to failed swallow evaluation. * GI-related: No bowel movement since November 26. Colostomy is intact without new output. No evidence of active GI bleeding. * Nutrition: Currently on Clinomex infusion at 41 mL/hr for parenteral nutrition. Due to persistent dysphagia and inability to take oral medications, recommendation to place NG tube today for enteral feeding and medication administration. * Antibiotics: Continuing on IV ceftriaxone for prior UTI, urine culture negative, MRSA negative. * Anticoagulation: Hemoglobin stable, no ongoing bleeding; anticoagulation with Lovenox (enoxaparin) can be initiated. * Daughter updated and agrees with current plan. Todays Progress, Treatment, Labs, Imaging, and Plan Progress * Patient remains lethargic but hemodynamically stable. * On amiodarone PO for AFib, now in sinus rhythm but unable to swallow medications effectively. * No evidence of new GI bleeding; hemoglobin remains stable at 8.4. * Continues Clinomex 41 mL/hr with sliding scale insulin for glucose control. * No bowel movement since November 26; continue monitoring. Labs (Most Recent) * Hgb: 8.4 (stable) * WBC: 11.8 (downtrending) * BUN: 72 (elevated) * Creatinine: 7.15 (elevated, ESRD on HD) * Electrolytes: Na 140, K 3.5, Cl 98, CO? 28 * LFTs: AST 20, ALT 18, Alk Phos 106, T. Bili 0.9 (all stable) * Urine culture: Negative * MRSA screen: Negative Objective vital signs Vital Sign Date Time Temp Pulse Resp B/P (MAP) Pulse Ox O2 Delivery O2 Flow Rate FiO2 11/28/24 13:00 98.5 82 16 136/59 (84) 94 98.5 8/1/25 12:23 Nasal Cannula* 2 28 Total Intake and Output 11/27/24 11/27/24 11/28/24 15:00 23:00 07:00 Intake Total 50 ml 0 ml Output Total 75 ml Balance 50 ml -75 ml medications Current Medications Medications Dose Ordered Sig/Delfino Route Start Time Stop Time Status Last Admin Dose Admin Amlodipine Besylate 10 mg DAILY PO 11/22/24 10:00 11/25/24 10:19 10 MG Ipratropium [place] 0.5 mg Q6HWA NEB 11/21/24 22:00 11/28/24 12:23 0.5 MG Hydralazine HCl 10 mg Q4HP PRN IV 11/23/24 09:15 11/23/24 09:34 10 MG Pantoprazole Sodium 40 mg BID IV 11/23/24 22:00 11/28/24 10:32 40 MG Sucralfate 1 gm BID PO 11/25/24 22:00 Amino Acids 0 ml @ 0 mls/hr PER PHARMACY IV 11/25/24 16:05 Diagnostic Test (Pha) 1 strip Q6HR 11/25/24 18:00 11/28/24 12:23 1 STRIP Insulin Human Regular FOLLOW SLIDING SCALE Q6HR SC 11/25/24 18:00 11/28/24 12:23 2 UNITS Dextrose 50 ml UD IV 11/25/24 17:15 Amino Acids/ Electrolytes/ Dextrose 1,000 ml @ 41 mls/hr DAILY@2200 IV 11/25/24 22:00 11/27/24 21:40 41 MLS/HR Ceftriaxone Sodium 50 ml @ 100 mls/hr DAILY@09 IV 11/26/24 09:00 11/28/24 10:32 100 MLS/HR Aspirin 300 mg DAILY [place] 11/26/24 16:00 11/27/24 10:33 300 MG Atorvastatin Calcium 40 mg HS PO 11/26/24 22:00 Amiodarone HCl 200 mg Q12HR PO 11/28/24 22:00 Examination * General: Lethargic, non-verbal, weak. * Abdomen: Soft, non-tender, LLQ colostomy intact, no new drainage, parastomal hernia present but stable. * Other: Findings consistent with neurologic deficits post-CVA. laboratory and microbiology Laboratory Tests 11/28/24 05:13 7/29/25 09:04 Test 11/28/24 05:13 Range/Units Serum Glucose 154 H 74-106 mg/dL Microbiology Date/Time Source Procedure Growth Status 11/25/24 09:23 Urine - Midstream Clean Catch Urine Culture - Final Complete 11/22/24 06:00 Nose MRSA Screen - Final Complete Problem List/Assessment/Plan Problem List/Assessment/Plan Assessment 1. Upper GI bleed with melena resolved; no current bleeding. 2. Gastroduodenitis continue PPI and Carafate. 3. Severe anemia (multifactorial, prior GI loss and CKD) stable post- transfusion. 4. Parastomal hernia stable, no obstruction. 5. Nutritional compromise with failed swallow evaluation requires NG tube placement for enteral feeding and medication delivery. 6. ESRD on HD continue scheduled dialysis. 7. Acute right MCA stroke with dysphagia managed by neurology. 8. Atrial fibrillation (now sinus rhythm on amiodarone) Plan Gastrointestinal * Place NG tube today for enteral feeding and medication administration. * Continue Pantoprazole IV 40 mg BID and Carafate 1 g BID for mucosal protection. * Maintain Clinomex at 41 mL/hr until NG feeds established; transition to NG enteral nutrition afterward. * Monitor colostomy output daily; ensure proper ostomy care. * Monitor for any signs of GI bleeding. * Avoid NSAIDs and unnecessary anticoagulants unless cleared. Nutrition * Start NG tube feeding protocol with gradual advancement as tolerated. * Continue parenteral support until enteral nutrition is fully tolerated. Antibiotics * Continue IV ceftriaxone as per infectious disease recommendations. Anticoagulation * Now cleared to start Lovenox (enoxaparin) per anticoagulation protocol. * Monitor CBC and watch for any GI bleeding. Case discussed in detail with the attending physician, including the clinical presentation, diagnostic workup, and comprehensive management plan. Plan discussed with: Other Dietary Evaluation Review Comments: 1) Nepro Carbsteady 240ml TID 2) Consider renal standard diet 3) Monitor PO intake, lab values, weight trend, and I/O Expected Outcomes/Goals: To meet >75% estimated needs lab values to improve Fu 3-5 days CC Plasma Assessment Blood Product Administration S: [id number] ROBLES SWEENEY RESIDENT Nov 28, 2024 17:41
[2024-11-28] MEDS: AMIODARONE HCL 200 MG TAB PO ONE (18:41)
[2024-11-28] MEDS: AMIODARONE HCL 200 MG TAB PO SCH (22:00)
[2024-11-29] VITALS (11 sets, daily range): BP systolic 100–165; BP diastolic 61–73; PULSE 95–125; RESP 16–20; TEMP 97.1–100.3; O2SAT 92–100
[2024-11-29 06:26] LABS: Alanine Aminotransferase 17 U/L (7-40); Albumin 3.9 g/dL (3.2-4.8); Anion Gap 17 (5-15); BUN/Creatinine Ratio 9.7 (10.0-20.0); Calcium 9.2 mg/dL (8.7-10.4); Carbon Dioxide 21 mmol/L (20-31); Magnesium 2.1 mg/dL (1.6-2.6); Potassium 3.9 mmol/L (3.5-5.1); Total Protein 6.7 g/dL (5.7-8.2)
[2024-11-29 06:29] LABS: Alkaline Phosphatase 117 U/L (46-116); Chloride 96 mmol/L (98-107); Glucose 135 mg/dL (74-106); Sodium 134 mmol/L (136-145)
[2024-11-29 06:31] LABS: Blood Urea Nitrogen 83 mg/dL (9-23)
[2024-11-29 06:43] LABS: Bilirubin, Total 0.6 mg/dL (0.2-1.0)
--- NOTE | 2024-11-29 12:26 | DVHPN2 ---
Progress Note - Dictate Date Seen: Nov 29, 2024 Has the PT tested + for MRSA If YES, has PT been informed?: No Medical Necessity Reason Pt with a Central, PICC or Fol: Yes The following are medically ne: Ashraf Catheter Subjective 78-year-old male with a history of colon cancer (s/p partial colectomy, chemotherapy, and colostomy), ESRD on hemodialysis, COPD, hypertension, dyslipidemia, and recent acute right MCA infarction with resultant left-sided hemiparesis and altered mental status. The patient remains non-verbal, unable to communicate effectively, and continues to have poor oral intake due to failed swallow evaluation. * GI-related: No bowel movement since November 26. Colostomy is intact without new output. No evidence of active GI bleeding. * Nutrition: Currently on Clinomex infusion at 41 mL/hr for parenteral nutrition. Due to persistent dysphagia and inability to take oral medications, recommendation to place NG tube today for enteral feeding and medication administration. * Antibiotics: Continuing on IV ceftriaxone for prior UTI, urine culture negative, MRSA negative. * Anticoagulation: Hemoglobin stable, no ongoing bleeding; anticoagulation with Lovenox (enoxaparin) can be initiated. * Daughter updated and agrees with current plan.No new complaints No active GI bleeding reported ;Hemodialysis patient is patient currently getting hemodialysis; patient currently getting hemodialysis Patient refused to drink his bowel prep and did not drink much of the GoLYTELY and refused the Mag citrate vital signs Vital Sign Date Time Temp Pulse Resp B/P (MAP) Pulse Ox O2 Delivery O2 Flow Rate FiO2 11/29/24 09:00 98.2 99 20 131/61 (84) 97 98.2 11/29/24 08:00 Nasal Cannula 2.0 11/29/24 08:00 28 Total Intake and Output 11/28/24 11/28/24 11/29/24 15:00 23:00 07:00 Intake Total 50 ml Output Total 250 ml Balance 50 ml -250 ml medications Current Medications Medications Dose Ordered Sig/Delfino Route Start Time Stop Time Status Last Admin Dose Admin Amlodipine Besylate 10 mg DAILY PO 11/22/24 10:00 11/25/24 10:19 10 MG Ipratropium [place] 0.5 mg Q6HWA NEB 11/21/24 22:00 11/29/24 07:59 0.5 MG Hydralazine HCl 10 mg Q4HP PRN IV 11/23/24 09:15 11/23/24 09:34 10 MG Pantoprazole Sodium 40 mg BID IV 11/23/24 22:00 11/29/24 09:36 40 MG Sucralfate 1 gm BID PO 11/25/24 22:00 Amino Acids 0 ml @ 0 mls/hr PER PHARMACY IV 11/25/24 16:05 Diagnostic Test (Pha) 1 strip Q6HR 11/25/24 18:00 11/29/24 11:16 1 STRIP Insulin Human Regular FOLLOW SLIDING SCALE Q6HR SC 11/25/24 18:00 11/29/24 11:23 2 UNITS Dextrose 50 ml UD IV 11/25/24 17:15 Amino Acids/ Electrolytes/ Dextrose 1,000 ml @ 41 mls/hr DAILY@2200 IV 11/25/24 22:00 11/28/24 21:55 41 MLS/HR Ceftriaxone Sodium 50 ml @ 100 mls/hr DAILY@09 IV 11/26/24 09:00 11/29/24 09:37 100 MLS/HR Aspirin 300 mg DAILY [place] 11/26/24 16:00 11/29/24 09:37 300 MG Atorvastatin Calcium 40 mg HS PO 11/26/24 22:00 Amiodarone HCl 200 mg Q12HR PO 11/28/24 22:00 Metoprolol Tartrate 1.25 mg Q6HPRN PRN IV 11/28/24 18:30 objective * General: Alert, oriented, lethargic and sleepy * Abdomen: Soft, mildly tender LUQ, non-distended, bowel sounds present. Colostomy bag intact, minimal output, no fresh blood. * Cardiovascular: Regular rhythm, mild tachycardia. * Pulmonary: Clear to auscultation with bibasilar crackles. * Other: Stable. laboratory and microbiology Laboratory Tests 11/29/24 05:20 11/25/24 09:04 Test 11/29/24 05:20 Range/Units Serum Glucose 135 H 74-106 mg/dL Problems(with codes): (1) ESRD (end stage renal disease) on dialysis (2) Acute upper GI bleed (3) History of colon cancer (4) Anemia (5) Symptomatic anemia (6) End-stage renal disease on hemodialysis Prognosis PLAN Gastrointestinal * Place NG tube today for enteral feeding and medication administration.; keep head end elevated to 30 at all times with the NG tube to prevent aspiration * Continue Pantoprazole IV 40 mg BID and Carafate 1 g BID for mucosal protection. * Maintain Clinmix at 41 mL/hr until NG feeds established; transition to NG enteral nutrition afterward. * Monitor colostomy output daily; ensure proper ostomy care. * Monitor for any signs of GI bleeding. * Avoid NSAIDs and unnecessary anticoagulants unless cleared. Nutrition * Start NG tube feeding protocol with gradual advancement as tolerated. * Continue parenteral support until enteral nutrition is fully tolerated. Antibiotics * Continue IV ceftriaxone as per infectious disease recommendations. Anticoagulation * Now cleared to start Lovenox (enoxaparin) or appropriate anticoagulation protocol. * Monitor CBC and watch for any GI bleeding. Dietary Evaluation Review Comments: 1) Nepro Carbsteady 240ml TID 2) Consider renal standard diet 3) Monitor PO intake, lab values, weight trend, and I/O Expected Outcomes/Goals: To meet >75% estimated needs lab values to improve Fu 3-5 days Plan discussed with: Other (Dr Buck) CC Plasma Assessment Blood Product Administration S: [id number] [place] MD Nov 29, 2024 12:26
--- NOTE | 2024-11-29 14:50 | DVHPN2 ---
Progress Note Date Seen: Nov 29, 2024 Medical Necessity Reason Pt with a Central, PICC or Fol: Yes The following are medically ne: Ashraf Catheter Subjective Review of Systems Pt resting in bed. Nonverbal. Objective vital signs Vital Sign Date Time Temp Pulse Resp B/P (MAP) Pulse Ox O2 Delivery O2 Flow Rate FiO2 11/29/24 13:00 99.1 125 16 100/63 (75) 92 99.1 11/29/24 08:00 Nasal Cannula 2.0 11/29/24 08:00 28 Total Intake and Output 11/28/24 11/28/24 11/29/24 15:00 23:00 07:00 Intake Total 50 ml Output Total 250 ml Balance 50 ml -250 ml medications Current Medications Medications Dose Ordered Sig/Delfino Route Start Time Stop Time Status Last Admin Dose Admin Amlodipine Besylate 10 mg DAILY PO 11/22/24 10:00 11/25/24 10:19 10 MG Ipratropium [place] 0.5 mg Q6HWA NEB 11/21/24 22:00 11/29/24 07:59 0.5 MG Hydralazine HCl 10 mg Q4HP PRN IV 11/23/24 09:15 11/23/24 09:34 10 MG Pantoprazole Sodium 40 mg BID IV 11/23/24 22:00 11/29/24 09:36 40 MG Sucralfate 1 gm BID PO 11/25/24 22:00 Amino Acids 0 ml @ 0 mls/hr PER PHARMACY IV 11/25/24 16:05 Diagnostic Test (Pha) 1 strip Q6HR 11/25/24 18:00 11/29/24 11:16 1 STRIP Insulin Human Regular FOLLOW SLIDING SCALE Q6HR SC 11/25/24 18:00 11/29/24 11:23 2 UNITS Dextrose 50 ml UD IV 11/25/24 17:15 Amino Acids/ Electrolytes/ Dextrose 1,000 ml @ 41 mls/hr DAILY@2200 IV 11/25/24 22:00 11/28/24 21:55 41 MLS/HR Ceftriaxone Sodium 50 ml @ 100 mls/hr DAILY@09 IV 11/26/24 09:00 11/29/24 09:37 100 MLS/HR Aspirin 300 mg DAILY [place] 11/26/24 16:00 11/29/24 09:37 300 MG Atorvastatin Calcium 40 mg HS PO 11/26/24 22:00 Amiodarone HCl 200 mg Q12HR PO 11/28/24 22:00 Metoprolol Tartrate 1.25 mg Q6HPRN PRN IV 11/28/24 18:30 Examination Gen: NAD Lungs: CTA, bilateral air entry Heart: RRR, normal S1 and S2 Abd: Soft, nontender, nondistended Ext: No edema Neuro: nonverbal laboratory and microbiology Laboratory Tests 11/29/24 05:20 11/25/24 09:04 Test 11/29/24 05:20 Range/Units Serum Glucose 135 H 74-106 mg/dL Microbiology Date/Time Source Procedure Growth Status 11/25/24 09:23 Urine - Midstream Clean Catch Urine Culture - Final Complete 11/22/24 06:00 Nose MRSA Screen - Final Complete Problem List/Assessment/Plan Problem List/Assessment/Plan IMP 1. ESRD on HD 2. HTN 3. hx of COPD 4. Anemia s/p PRBC transfusion 5. CVA fronto parietal REC - HD today - Strict I&Os - Blood pressure control - Will continue to follow Plan discussed with: Patient Dietary Evaluation Review Comments: 1) Nepro Carbsteady 240ml TID 2) Consider renal standard diet 3) Monitor PO intake, lab values, weight trend, and I/O Expected Outcomes/Goals: To meet >75% estimated needs lab values to improve Fu 3-5 days CC Plasma Assessment Blood Product Administration S: [id number] EVELINE HERNANDEZ Nov 29, 2024 14:50
--- NOTE | 2024-11-29 18:22 | DVHPN2 ---
Subjective No family member at bedside today, patient is on Clinimix, failed swallow evaluation the other day. 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 minimally, wiggling toes left side, right-sided neglect Medications Current Medications Medications Dose Ordered Sig/Delfino Route Start Time Stop Time Status Last Admin Dose Admin Amlodipine Besylate 10 mg DAILY PO 11/22/24 10:00 11/25/24 10:19 10 MG Ipratropium [place] 0.5 mg Q6HWA NEB 11/21/24 22:00 11/29/24 07:59 0.5 MG Hydralazine HCl 10 mg Q4HP PRN IV 11/23/24 09:15 11/23/24 09:34 10 MG Pantoprazole Sodium 40 mg BID IV 11/23/24 22:00 11/29/24 09:36 40 MG Sucralfate 1 gm BID PO 11/25/24 22:00 Amino Acids 0 ml @ 0 mls/hr PER PHARMACY IV 11/25/24 16:05 Diagnostic Test (Pha) 1 strip Q6HR 11/25/24 18:00 11/29/24 11:16 1 STRIP Insulin Human Regular FOLLOW SLIDING SCALE Q6HR SC 11/25/24 18:00 11/29/24 11:23 2 UNITS Dextrose 50 ml UD IV 11/25/24 17:15 Amino Acids/ Electrolytes/ Dextrose 1,000 ml @ 41 mls/hr DAILY@2200 IV 11/25/24 22:00 11/28/24 21:55 41 MLS/HR Ceftriaxone Sodium 50 ml @ 100 mls/hr DAILY@09 IV 11/26/24 09:00 11/29/24 09:37 100 MLS/HR Aspirin 300 mg DAILY [place] 11/26/24 16:00 11/29/24 09:37 300 MG Atorvastatin Calcium 40 mg HS PO 11/26/24 22:00 Amiodarone HCl 200 mg Q12HR PO 11/28/24 22:00 Metoprolol Tartrate 1.25 mg Q6HPRN PRN IV 11/28/24 18:30 Laboratory Results Laboratory Tests 11/25/24 09:04 11/29/24 05:20 Chemistry Test 11/29/24 05:20 Albumin 3.9 g/dL (3.2-4.8) Calcium Level 9.2 mg/dL (8.7-10.4) Magnesium Level 2.1 mg/dL (1.6-2.6) Phosphorus Level 4.8 mg/dL (2.4-5.1) Total Protein 6.7 g/dL (5.7-8.2) LFT Test 11/29/24 05:20 Alanine Aminotransferase (ALT) 17 U/L (7-40) Alkaline Phosphatase 117 U/L (46-116) H Aspartate Amino Transferase (AST) 24 U/L (13-40) Total Bilirubin 0.6 mg/dL (0.2-1.0) Urinalysis Test 11/23/24 05:50 11/25/24 09:23 Urine Amorphous Crystals Few /hpf (None Seen) Urine Color Light-brown (Yellow) Urine Clarity Turbid (Clear) H Urine pH 8.5 (5.0-9.0) Urine Specific [place] 1.011 (1.001-1.035) Urine Protein 3+ (Negative) H Urine Ketones Trace (Negative) Urine Blood 3+ /uL (Negative) H Urine Nitrite Negative (Negative) Urine Bilirubin Negative (Negative) Urine Urobilinogen Normal mg/dL (Negative) Urine Leukocyte Esterase 3+ /uL (Negative) Urine RBC 2271 /hpf (0 - 3) Urine WBC Clumps Present /hpf (None Seen) Urine Microscopic WBC 312 /HPF (0-3) H Urine Squamous Epithelial Cells None seen /hpf (<5) Urine Bacteria None seen /hpf (None Seen) Urine Glucose Trace mg/dL (Normal) Microbiology Microbiology Date/Time Source Procedure Growth Status 11/25/24 09:23 Urine - Midstream Clean Catch Urine Culture - Final Complete 11/22/24 06:00 Nose MRSA Screen - Final Complete Assessment/Plan Assessment/Plan 78-year-old male with a known history of colon cancer status post partial colectomy status post oral chemotherapy currently in remission, end-stage renal disease on hemodialysis, hypertension, COPD initially presented to hospital with a black tarry stools found to have 1. Acute/subacute right MCA 2. Acute delirium/acute encephalopathy suspect secondary to acute CVA 3.Melanotic stools rule out upper GI bleed, status post EGD showed gastro duodenitis 4. History of colon cancer status post partial colectomy status post chemotherapy, status post colostomy 5. End-stage renal disease on hemodialysis 6.. Hypertension 7. COPD -aspirin, statin, neurology consultation appreciated -new Protonix and Carafate -continue Clinimix , if patient failed swallow evaluation given might start TPN or tube feeding -I updated daughter regarding current condition including acute/subacute stroke she understand verbalized understanding and agreeable to plan.. Plan discussed with: Other My Orders Orders - BRIE BOLAND MD Procedure Category Date Status Time Comprehensive LAB 11/30/24 Verified Metabolic Panel 04:00 Magnesium LAB 11/30/24 Verified 04:00 Phosphorus LAB 11/30/24 Verified 04:00 Clinimix Per Pharmacy [facility] 11/29/24 In Process 22:00 Date of Service: Nov 29, 2024 Billing Provider: BRIE BOLAND MD Common Visit Codes: [id number] INP/OBS CARE(MOD) BRIE BOLAND MD Nov 29, 2024 18:22
[2024-11-29] MEDS: EPOETIN ALFA-EPBX 10,000 UNIT/1ML VIAL SC ONE (22:05)
[2024-11-30] VITALS (15 sets, daily range): BP systolic 101–159; BP diastolic 49–61; PULSE 90–113; RESP 16–20; TEMP 98.8–99.7; O2SAT 92–100
[2024-11-30 08:08] LABS: Alanine Aminotransferase 23 U/L (7-40); Albumin 3.7 g/dL (3.2-4.8); Anion Gap 15 (5-15); BUN/Creatinine Ratio 10.3 (10.0-20.0); Bilirubin, Total 0.6 mg/dL (0.2-1.0); Calcium 9.0 mg/dL (8.7-10.4); Carbon Dioxide 23 mmol/L (20-31); Magnesium 1.9 mg/dL (1.6-2.6); Potassium 3.6 mmol/L (3.5-5.1); Total Protein 6.4 g/dL (5.7-8.2)
[2024-11-30 08:14] LABS: Alkaline Phosphatase 126 U/L (46-116); Blood Urea Nitrogen 63 mg/dL (9-23); Chloride 97 mmol/L (98-107); Glucose 140 mg/dL (74-106); Sodium 135 mmol/L (136-145)
--- NOTE | 2024-11-30 14:56 | DVHPN2 ---
Progress Note Date Seen: Nov 30, 2024 Medical Necessity Reason Pt with a Central, PICC or Fol: Yes The following are medically ne: Ashraf Catheter Subjective Review of Systems Pt resting in bed. Objective vital signs Vital Sign Date Time Temp Pulse Resp B/P (MAP) Pulse Ox O2 Delivery O2 Flow Rate FiO2 11/30/24 12:32 98.9 99 18 124/49 (74) 97 98.9 11/30/24 10:00 Nasal Cannula* 2 28 Total Intake and Output 11/29/24 11/29/24 11/30/24 15:00 23:00 07:00 Intake Total 50 ml Balance 50 ml medications Current Medications Medications Dose Ordered Sig/Delfino Route Start Time Stop Time Status Last Admin Dose Admin Amlodipine Besylate 10 mg DAILY PO 11/22/24 10:00 11/25/24 10:19 10 MG Ipratropium [place] 0.5 mg Q6HWA NEB 11/21/24 22:00 11/30/24 06:48 0.5 MG Hydralazine HCl 10 mg Q4HP PRN IV 11/23/24 09:15 11/29/24 22:07 10 MG Pantoprazole Sodium 40 mg BID IV 11/23/24 22:00 11/30/24 09:35 40 MG Sucralfate 1 gm BID PO 11/25/24 22:00 Amino Acids 0 ml @ 0 mls/hr PER PHARMACY IV 11/25/24 16:05 Diagnostic Test (Pha) 1 strip Q6HR 11/25/24 18:00 11/30/24 12:02 1 STRIP Insulin Human Regular FOLLOW SLIDING SCALE Q6HR SC 11/25/24 18:00 11/30/24 12:53 2 UNITS Dextrose 50 ml UD IV 11/25/24 17:15 Amino Acids/ Electrolytes/ Dextrose 1,000 ml @ 41 mls/hr DAILY@2200 IV 11/25/24 22:00 11/29/24 22:05 41 MLS/HR Ceftriaxone Sodium 50 ml @ 100 mls/hr DAILY@09 IV 11/26/24 09:00 11/30/24 09:35 100 MLS/HR Aspirin 300 mg DAILY [place] 11/26/24 16:00 11/30/24 09:36 300 MG Atorvastatin Calcium 40 mg HS PO 11/26/24 22:00 Amiodarone HCl 200 mg Q12HR PO 11/28/24 22:00 Metoprolol Tartrate 1.25 mg Q6HPRN PRN IV 11/28/24 18:30 Examination Gen: NAD Lungs: CTA, bilateral air entry Heart: RRR, normal S1 and S2 Abd: Soft, nontender, nondistended Ext: No edema Neuro: nonverbal laboratory and microbiology Laboratory Tests 11/30/24 06:59 11/25/24 09:04 Test 11/30/24 06:59 Range/Units Serum Glucose 140 H 74-106 mg/dL Microbiology Date/Time Source Procedure Growth Status 11/25/24 09:23 Urine - Midstream Clean Catch Urine Culture - Final Complete 11/22/24 06:00 Nose MRSA Screen - Final Complete Labs and/or images reviewed: Labs reviewed by me Problem List/Assessment/Plan Problem List/Assessment/Plan IMP 1. ESRD on HD 2. HTN 3. hx of COPD 4. Anemia s/p PRBC transfusion 5. CVA fronto parietal REC - Next HD tentatively 12/02 - Strict I&Os - Blood pressure control - Will continue to follow Plan discussed with: Other Dietary Evaluation Review Comments: 1) Nepro Carbsteady 240ml TID 2) Consider renal standard diet 3) Monitor PO intake, lab values, weight trend, and I/O Expected Outcomes/Goals: To meet >75% estimated needs lab values to improve Fu 3-5 days CC Plasma Assessment Blood Product Administration S: [id number] EVELINE HERNANDEZ [employer] OPERATOR HELPER Nov 30, 2024 14:56
[2024-11-30] MEDS ORDERED: TPN PER PHARMACY 0 ML IV SCH (15:15)
--- NOTE | 2024-11-30 17:01 | DVHPN2 ---
Subjective Patient is currently on Clinimix, failed swallow evaluation, another swallow evaluation has been ordered for Sunday. 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, wiggling toes left side, right-sided neglect, left-sided hemiplegia Medications Current Medications Medications Dose Ordered Sig/Delfino Route Start Time Stop Time Status Last Admin Dose Admin Amlodipine Besylate 10 mg DAILY PO 11/22/24 10:00 11/25/24 10:19 10 MG Ipratropium [place] 0.5 mg Q6HWA NEB 11/21/24 22:00 11/30/24 06:48 0.5 MG Hydralazine HCl 10 mg Q4HP PRN IV 11/23/24 09:15 11/29/24 22:07 10 MG Pantoprazole Sodium 40 mg BID IV 11/23/24 22:00 11/30/24 09:35 40 MG Sucralfate 1 gm BID PO 11/25/24 22:00 Diagnostic Test (Pha) 1 strip Q6HR 11/25/24 18:00 11/30/24 12:02 1 STRIP Insulin Human Regular FOLLOW SLIDING SCALE Q6HR SC 11/25/24 18:00 11/30/24 12:53 2 UNITS Dextrose 50 ml UD IV 11/25/24 17:15 Amino Acids/ Electrolytes/ Dextrose 1,000 ml @ 41 mls/hr DAILY@2200 IV 11/25/24 22:00 12/01/24 21:59 11/29/24 22:05 41 MLS/HR Ceftriaxone Sodium 50 ml @ 100 mls/hr DAILY@09 IV 11/26/24 09:00 11/30/24 09:35 100 MLS/HR Aspirin 300 mg DAILY [place] 11/26/24 16:00 11/30/24 09:36 300 MG Atorvastatin Calcium 40 mg HS PO 11/26/24 22:00 Amiodarone HCl 200 mg Q12HR PO 11/28/24 22:00 Metoprolol Tartrate 1.25 mg Q6HPRN PRN IV 11/28/24 18:30 Amino Acids 0 ml @ 0 mls/hr PER PHARMACY IV 11/30/24 15:15 Laboratory Results Laboratory Tests 11/25/24 09:04 11/30/24 06:59 Chemistry Test 11/30/24 06:59 Albumin 3.7 g/dL (3.2-4.8) Calcium Level 9.0 mg/dL (8.7-10.4) Magnesium Level 1.9 mg/dL (1.6-2.6) Phosphorus Level 3.5 mg/dL (2.4-5.1) Total Protein 6.4 g/dL (5.7-8.2) LFT Test 11/30/24 06:59 Alanine Aminotransferase (ALT) 23 U/L (7-40) Alkaline Phosphatase 126 U/L (46-116) H Aspartate Amino Transferase (AST) 34 U/L (13-40) Total Bilirubin 0.6 mg/dL (0.2-1.0) Urinalysis Test 11/23/24 05:50 11/25/24 09:23 Urine Amorphous Crystals Few /hpf (None Seen) Urine Color Light-brown (Yellow) Urine Clarity Turbid (Clear) H Urine pH 8.5 (5.0-9.0) Urine Specific [place] 1.011 (1.001-1.035) Urine Protein 3+ (Negative) H Urine Ketones Trace (Negative) Urine Blood 3+ /uL (Negative) H Urine Nitrite Negative (Negative) Urine Bilirubin Negative (Negative) Urine Urobilinogen Normal mg/dL (Negative) Urine Leukocyte Esterase 3+ /uL (Negative) Urine RBC 2271 /hpf (0 - 3) Urine WBC Clumps Present /hpf (None Seen) Urine Microscopic WBC 312 /HPF (0-3) H Urine Squamous Epithelial Cells None seen /hpf (<5) Urine Bacteria None seen /hpf (None Seen) Urine Glucose Trace mg/dL (Normal) Microbiology Microbiology Date/Time Source Procedure Growth Status 11/25/24 09:23 Urine - Midstream Clean Catch Urine Culture - Final Complete 11/22/24 06:00 Nose MRSA Screen - Final Complete Assessment/Plan Assessment/Plan 78-year-old male with a known history of colon cancer status post partial colectomy status post oral chemotherapy currently in remission, end-stage renal disease on hemodialysis, hypertension, COPD initially presented to hospital with a black tarry stools found to have 1. Acute/subacute right MCA with left-sided hemiplegia 2. Acute delirium/acute encephalopathy suspect secondary to acute CVA 3.Melanotic stools rule out upper GI bleed, status post EGD showed gastro duodenitis 4. History of colon cancer status post partial colectomy status post chemotherapy, status post colostomy 5. End-stage renal disease on hemodialysis 6.. Hypertension 7. COPD 8. Failed swallow evaluation -repeat swallow evaluation -aspirin, statin, neurology consultation appreciated -new Protonix and Carafate -TPN per pharmacy, if patient failed swallow evaluation given might start TPN or tube feeding -no family member at bedside today, aspiration and fall precaution and pressure ulcer precautions. Plan discussed with: Patient My Orders Orders - BRIE BOLAND MD Procedure Category Date Status Time * Picc Line Consult CONS 11/30/24 Transmitted 15:11 Tpn Per Pharmacy PHA 11/30/24 In Process 15:15 Comprehensive LAB 12/01/24 Verified Metabolic Panel 04:00 Magnesium LAB 12/01/24 Verified 04:00 Phosphorus LAB 12/01/24 Verified 04:00 Tpn Per Pharmacy SONJA 11/30/24 In Process 22:00 Date of Service: Nov 30, 2024 Billing Provider: BRIE BOLAND MD Common Visit Codes: [id number] INP/OBS CARE(MOD) BRIE BOLAND MD Nov 30, 2024 17:01
--- NOTE | 2024-11-30 19:16 | DVHPN2 ---
Subjective No cardiac events reported Remains sinus rhythm Changes from previous H/P or p: No Changes Objective Vitals Vital Signs Date Time Temp Pulse Resp B/P (MAP) Pulse Ox O2 Delivery O2 Flow Rate FiO2 11/30/24 18:04 106 20 100 11/30/24 17:58 98.8 145/57 (86) 98.8 11/30/24 17:54 Nasal Cannula 1.0 11/30/24 17:54 24 Intake/Output Intake and Output 11/30/24 07:00 Intake Total 50 ml Balance 50 ml IV Total 50 ml Medications Current Medications Medications Dose Ordered Sig/Delfino Route Start Time Stop Time Status Last Admin Dose Admin Amlodipine Besylate 10 mg DAILY PO 11/22/24 10:00 11/25/24 10:19 10 MG Ipratropium [place] 0.5 mg Q6HWA NEB 11/21/24 22:00 11/30/24 17:54 0.5 MG Hydralazine HCl 10 mg Q4HP PRN IV 11/23/24 09:15 11/29/24 22:07 10 MG Pantoprazole Sodium 40 mg BID IV 11/23/24 22:00 11/30/24 09:35 40 MG Sucralfate 1 gm BID PO 11/25/24 22:00 Diagnostic Test (Pha) 1 strip Q6HR 11/25/24 18:00 11/30/24 18:00 1 STRIP Insulin Human Regular FOLLOW SLIDING SCALE Q6HR SC 11/25/24 18:00 11/30/24 18:00 2 UNITS Dextrose 50 ml UD IV 11/25/24 17:15 Amino Acids/ Electrolytes/ Dextrose 1,000 ml @ 41 mls/hr DAILY@2200 IV 11/25/24 22:00 12/01/24 21:59 11/29/24 22:05 41 MLS/HR Ceftriaxone Sodium 50 ml @ 100 mls/hr DAILY@09 IV 11/26/24 09:00 11/30/24 09:35 100 MLS/HR Aspirin 300 mg DAILY [place] 11/26/24 16:00 11/30/24 09:36 300 MG Atorvastatin Calcium 40 mg HS PO 11/26/24 22:00 Amiodarone HCl 200 mg Q12HR PO 11/28/24 22:00 Metoprolol Tartrate 1.25 mg Q6HPRN PRN IV 11/28/24 18:30 Amino Acids 0 ml @ 0 mls/hr PER PHARMACY IV 11/30/24 15:15 Laboratory Results Laboratory Tests 11/25/24 09:04 11/30/24 06:59 Chemistry Test 11/30/24 06:59 Albumin 3.7 g/dL (3.2-4.8) Calcium Level 9.0 mg/dL (8.7-10.4) Magnesium Level 1.9 mg/dL (1.6-2.6) Phosphorus Level 3.5 mg/dL (2.4-5.1) Total Protein 6.4 g/dL (5.7-8.2) LFT Test 11/30/24 06:59 Alanine Aminotransferase (ALT) 23 U/L (7-40) Alkaline Phosphatase 126 U/L (46-116) H Aspartate Amino Transferase (AST) 34 U/L (13-40) Total Bilirubin 0.6 mg/dL (0.2-1.0) Urinalysis Test 11/23/24 05:50 11/25/24 09:23 Urine Amorphous Crystals Few /hpf (None Seen) Urine Color Light-brown (Yellow) Urine Clarity Turbid (Clear) H Urine pH 8.5 (5.0-9.0) Urine Specific [place] 1.011 (1.001-1.035) Urine Protein 3+ (Negative) H Urine Ketones Trace (Negative) Urine Blood 3+ /uL (Negative) H Urine Nitrite Negative (Negative) Urine Bilirubin Negative (Negative) Urine Urobilinogen Normal mg/dL (Negative) Urine Leukocyte Esterase 3+ /uL (Negative) Urine RBC 2271 /hpf (0 - 3) Urine WBC Clumps Present /hpf (None Seen) Urine Microscopic WBC 312 /HPF (0-3) H Urine Squamous Epithelial Cells None seen /hpf (<5) Urine Bacteria None seen /hpf (None Seen) Urine Glucose Trace mg/dL (Normal) Microbiology Microbiology Date/Time Source Procedure Growth Status 11/25/24 09:23 Urine - Midstream Clean Catch Urine Culture - Final Complete 11/22/24 06:00 Nose MRSA Screen - Final Complete Assessment/Plan Assessment/Plan Atrial fibrillation with a rapid ventricular response, ?new onset, now normal sinus rhythm Severe anemia status post PRBC transfusion Acute right MCA territory CVA NSTEMI, likely type 2 secondary to above Mild tricuspid regurgitation End-stage renal disease on hemodialysis History of colon cancer status post colectomy and colostomy COPD Plan/Recommendations (Dr. Leal): 11/30/24 - GI cleared patient to start anticoagulation. CBC ordered today, if stable H&H. Start patient on Lovenox. Cardiology will continue to follow. * Transthoracic echocardiogram reveals EF 55% * [id number] VASc score: 5 points, HAS-BLED score: 4 points * Hold anticoagulation until GI cleared; SCDs in the meantime * Transition antiarrhythmic agent, amiodarone to oral (consider NG tube if patient can not swallow) * Monitor and replete electrolytes as needed, keep potassium greater than four and magnesium greater than two * Closely monitor hemoglobin and hematocrit, transfuse as needed * Close Cardiac surveillance Case discussed with . Given that the patient came in with severe anemia requiring blood transfusion, hold off on anticoagulation at this time until patient is cleared by GI to start on anticoagulation. Considering that the patient had an acute CVA, the patient would benefit from anticoagulation and if is unable to be on anticoagulation, consider left atrial appendage occlusion device in the future. Thank you for allowing us to care for this patient. Please call with any questions or concerns. Plan discussed with: Patient My Orders Orders - MILADIS DALTON Procedure Category Date Status Time Complete Blood Count LAB 11/30/24 Transmitted 19:12 Complete Blood Count LAB 11/30/24 Verified 19:13 Date of Service: Nov 30, 2024 Billing Provider: QUAN LEAL Sr., MD Common Visit Codes: CONSULT ONLY Consultation Codes: [id number] CONSULT <45MIN MILADIS DALTON Nov 30, 2024 19:16
[2024-11-30 19:30] LABS: Hematocrit 28.3 % (41.0-53.0); Hemoglobin 9.2 g/dL (13.5-17.5); Mean Corpuscular Hemoglobin 29.5 pg (28.0-32.0); Mean Corpuscular Volume 91.0 fL (80.0-100.0); Nucleated Red Blood Cells % 0.0 %
[2024-11-30 19:48] LABS: Hematocrit 26.5 % (41.0-53.0); Hemoglobin 8.8 g/dL (13.5-17.5); Mean Corpuscular Hemoglobin 29.5 pg (28.0-32.0); Mean Corpuscular Volume 88.8 fL (80.0-100.0); Nucleated Red Blood Cells % 0.0 %
--- NOTE | 2024-11-30 20:42 | DVHPN2 ---
Progress Note - Dictate Date Seen: Nov 30, 2024 Medical Necessity Reason Pt with a Central, PICC or Fol: Yes The following are medically ne: Ashraf Catheter Subjective Mr. Akbar is a 78 years old gentleman with a history of hypertension, dyslipidemia, COPD, end-stage kidney failure on hemodialysis, colon cancer status post colostomy, he was brought to the [facility] on 11/21/2024 with a chief company of general weakness and dark stool. I have seen and examined the patient, I have talked to his nurse, he is doing okay, he can answer simple questions, he is oriented to person only He fails swallow evaluation Stool occult blood, 11/21/2024: Positive Urinalysis, 11/23/2024: UTI UDS, 11/23/2024: Negative WBC/HB/PLT/MCV, 11/21/2024: 12.3/5.8/267/94.5, 11/25/2024: 11.8/9.9/275/93.6 PT/INR/PTT, 11/21/2024: 13/1.25/41.6 BUN/CR, 11/26/2024: 53/6.41 HGB A1c, 11/21/2024: <3.8 Vitamin B12, 11/21/2024: 452 TSH, 11/21/2024: 2.27 Carotid Doppler, 11/26/2024: 1. No hemodynamically significant stenosis noted in the right carotid system. Approximately 50-69 % focal stenosis in the mid right internal carotid artery. 2. No hemodynamically significant stenosis noted in the left carotid system. 3. The vertebral arteries were not visualized. CT head, 11/09/2024: Acute to subacute infarction of the right frontoparietal lobe with thrombus in the right middle cerebral artery M2 segment. Recommend neurology consultation. Moderate chronic microvascular ischemic changes. MRI head, 11/26/2024: Acute infarction right middle cerebral artery distribution involving the right frontal and parietal lobes. Findings consistent with right M2 middle cerebral artery segment occlusion/thrombosis. Moderate chronic microvascular ischemic changes. EGD, 11/25/2024: 1. Minimal gastroduodenitis 2. Otherwise normal examination up to the 2nd and 3rd part of the duodenal with no fresh or old blood in the upper GI tract vital signs Vital Sign Date Time Temp Pulse Resp B/P (MAP) Pulse Ox O2 Delivery O2 Flow Rate FiO2 11/30/24 18:04 106 20 100 11/30/24 17:58 98.8 145/57 (86) 98.8 11/30/24 17:54 Nasal Cannula 1.0 11/30/24 17:54 24 Total Intake and Output 11/29/24 11/29/24 11/30/24 15:00 23:00 07:00 Intake Total 50 ml Balance 50 ml medications Current Medications Medications Dose Ordered Sig/Delfino Route Start Time Stop Time Status Last Admin Dose Admin Amlodipine Besylate 10 mg DAILY PO 11/22/24 10:00 11/25/24 10:19 10 MG Ipratropium [place] 0.5 mg Q6HWA NEB 11/21/24 22:00 11/30/24 17:54 0.5 MG Hydralazine HCl 10 mg Q4HP PRN IV 11/23/24 09:15 11/29/24 22:07 10 MG Pantoprazole Sodium 40 mg BID IV 11/23/24 22:00 11/30/24 09:35 40 MG Sucralfate 1 gm BID PO 11/25/24 22:00 Diagnostic Test (Pha) 1 strip Q6HR 11/25/24 18:00 11/30/24 18:00 1 STRIP Insulin Human Regular FOLLOW SLIDING SCALE Q6HR SC 11/25/24 18:00 11/30/24 18:00 2 UNITS Dextrose 50 ml UD IV 11/25/24 17:15 Amino Acids/ Electrolytes/ Dextrose 1,000 ml @ 41 mls/hr DAILY@2200 IV 11/25/24 22:00 12/01/24 21:59 11/29/24 22:05 41 MLS/HR Ceftriaxone Sodium 50 ml @ 100 mls/hr DAILY@09 IV 11/26/24 09:00 11/30/24 09:35 100 MLS/HR Aspirin 300 mg DAILY [place] 11/26/24 16:00 11/30/24 09:36 300 MG Atorvastatin Calcium 40 mg HS PO 11/26/24 22:00 Amiodarone HCl 200 mg Q12HR PO 11/28/24 22:00 Metoprolol Tartrate 1.25 mg Q6HPRN PRN IV 11/28/24 18:30 Amino Acids 0 ml @ 0 mls/hr PER PHARMACY IV 11/30/24 15:15 objective General: the patient is well developed and nourished. No acute distress. MENTAL STATUS: Subjective SPEECH, LANGUAGE, HIGHER CORTICAL FUNCTION: Subjective CRANIAL NERVES: Pupils are equal, round and reactive. EOMs full and conjugate. Facial sensation intact in all three divisions bilaterally. Mandibular strength intact. Facial muscles symmetrical and strength intact. SENSATION: Sensation to touch and pinprick is unremarkable MOTOR: Normal tone in the upper and lower extremity. Normal muscle bulk. No fasciculations. No abnormal movements or posturing. He moves the right, but not left extremities REFLEXES: Deep tendon reflexes are symmetrical. Upgoing toes in the left foot CEREBELLAR/COORDINATION: Deferred GAIT/STATION: deferred laboratory and microbiology Laboratory Tests 11/30/24 19:39 11/30/24 06:59 Test 11/30/24 06:59 Range/Units Serum Glucose 140 H 74-106 mg/dL Problem List Acute right MCA territory stroke with acute left hemiparesis Altered mental status Secondary to acute stroke Metabolic encephalopathy Rule out seizure activity End-stage kidney failure Acute neck pain, etiology unclear Mass GI bleeding status post RBC transfusion History of colon cancer Gait disturbance, maybe secondary to drug effects Assessment/Plan Monitoring Supportive treatment Lipitor profile Echocardiogram Aspirin [place] 300 mg daily Lipitor 40 mg daily Carafate 1 g b.i.d. Protonix 40 mg b.i.d. Nephrology on case/hemodialysis GI specialist on case More recommendation per clinical course This medical document was created using an electronic medical record system with [employer] dictation system. Although this document has been carefully reviewed, there may still be some phonetic and typographical errors. These areas are purely typographical due to imperfections of the software programs, and do not reflect any compromise in the patient's medical care. Prognosis poor Dietary Evaluation Review Comments: 1) Nepro Carbsteady 240ml TID 2) Consider renal standard diet 3) Monitor PO intake, lab values, weight trend, and I/O Expected Outcomes/Goals: To meet >75% estimated needs lab values to improve Fu 3-5 days Plan discussed with: Other CC Plasma Assessment Blood Product Administration S: [id number] PATSY SALGADO MD Nov 30, 2024 20:42
[2024-12-01] VITALS (16 sets, daily range): BP systolic 132–159; BP diastolic 48–61; PULSE 99–116; RESP 17–22; TEMP 97.9–99.8; O2SAT 95–100
[2024-12-01 07:34] LABS: Alanine Aminotransferase 30 U/L (7-40); Albumin 3.8 g/dL (3.2-4.8); Anion Gap 17 (5-15); BUN/Creatinine Ratio 11.9 (10.0-20.0); Calcium 9.2 mg/dL (8.7-10.4); Carbon Dioxide 21 mmol/L (20-31); Magnesium 2.0 mg/dL (1.6-2.6); Potassium 3.7 mmol/L (3.5-5.1); Total Protein 6.7 g/dL (5.7-8.2)
[2024-12-01 07:35] LABS: Alkaline Phosphatase 149 U/L (46-116); Bilirubin, Total 0.6 mg/dL (0.2-1.0); Chloride 96 mmol/L (98-107); Glucose 125 mg/dL (74-106); Sodium 134 mmol/L (136-145)
[2024-12-01 07:37] LABS: Blood Urea Nitrogen 89 mg/dL (9-23)
[2024-12-01 08:56] LABS: Hematocrit 26.4 % (41.0-53.0); Hemoglobin 9.1 g/dL (13.5-17.5); Mean Corpuscular Hemoglobin 30.2 pg (28.0-32.0); Mean Corpuscular Volume 87.7 fL (80.0-100.0); Nucleated Red Blood Cells % 0.0 %
[2024-12-01 11:38] LABS: INR 1.83 (0.9-1.15); Partial Thromboplastin Time 49.3 SEC (24.5-34.5); Prothrombin Time 18.3 sec (9.3-11.8)
--- NOTE | 2024-12-01 12:30 | DVHPN2 ---
Consult Progress Note Subjective Other Systems: The patient remains in normal sinus rhythm/sinus tachycardia on ekg monitor tech. Objective vital signs Vital Sign Date Time Temp Pulse Resp B/P (MAP) Pulse Ox O2 Delivery O2 Flow Rate FiO2 12/01/24 07:50 Nasal Cannula* 2 28 12/01/24 07:23 108 17 100 12/01/24 05:00 99.8 140/48 (78) 99.8 Total Intake and Output 11/30/24 11/30/24 12/01/24 15:00 23:00 07:00 Intake Total 50 ml Balance 50 ml medications Current Medications Medications Dose Ordered Sig/Delfino Route Start Time Stop Time Status Last Admin Dose Admin Amlodipine Besylate 10 mg DAILY PO 11/22/24 10:00 11/25/24 10:19 10 MG Ipratropium [place] 0.5 mg Q6HWA NEB 11/21/24 22:00 12/01/24 07:16 0.5 MG Hydralazine HCl 10 mg Q4HP PRN IV 11/23/24 09:15 12/01/24 00:16 10 MG Pantoprazole Sodium 40 mg BID IV 11/23/24 22:00 12/01/24 09:54 40 MG Sucralfate 1 gm BID PO 11/25/24 22:00 Diagnostic Test (Pha) 1 strip Q6HR 11/25/24 18:00 12/01/24 06:41 1 STRIP Insulin Human Regular FOLLOW SLIDING SCALE Q6HR SC 11/25/24 18:00 12/01/24 00:21 2 UNITS Dextrose 50 ml UD IV 11/25/24 17:15 Amino Acids/ Electrolytes/ Dextrose 1,000 ml @ 41 mls/hr DAILY@2200 IV 11/25/24 22:00 12/02/24 21:59 11/30/24 21:20 41 MLS/HR Ceftriaxone Sodium 50 ml @ 100 mls/hr DAILY@09 IV 11/26/24 09:00 12/01/24 09:54 100 MLS/HR Aspirin 300 mg DAILY [place] 11/26/24 16:00 11/30/24 09:36 300 MG Atorvastatin Calcium 40 mg HS PO 11/26/24 22:00 Amiodarone HCl 200 mg Q12HR PO 11/28/24 22:00 Metoprolol Tartrate 1.25 mg Q6HPRN PRN IV 11/28/24 18:30 Amino Acids 0 ml @ 0 mls/hr PER PHARMACY IV 11/30/24 15:15 Examination: GENERAL:Abnormal (Generalized weakness), LUNGS:Normal, CVS:Normal, NEURO:Abnormal (Confused) laboratory and microbiology Laboratory Tests 12/01/24 06:28 Test 12/01/24 06:28 Range/Units Serum Glucose 125 H 74-106 mg/dL Problem List/Assessment/Plan Problem List/Assessment/Plan Atrial fibrillation with a rapid ventricular response, ?new onset, now normal sinus rhythm Severe anemia status post PRBC transfusion Acute right MCA territory CVA NSTEMI, likely type 2 secondary to above Mild tricuspid regurgitation End-stage renal disease on hemodialysis History of colon cancer status post colectomy and colostomy COPD Plan/Recommendations (Dr. Leal): * Transthoracic echocardiogram reveals EF 55% * [id number] VASc score: 5 points, HAS-BLED score: 4 points * Hold anticoagulation until GI cleared and if H&H stable; SCDs in the meantime * Transition antiarrhythmic agent, amiodarone to oral (consider NG tube if patient can not swallow) * IV metoprolol PRN given patient is unable to swallow. Transition to oral beta-freedom when able to swallow * Monitor and replete electrolytes as needed, keep potassium greater than four and magnesium greater than two * Closely monitor hemoglobin and hematocrit, transfuse as needed * Close Cardiac surveillance Case discussed with . Given that the patient came in with severe anemia requiring blood transfusions, hold off on anticoagulation at this time until patient is cleared by GI to start on anticoagulation and with stable hemoglobin and hematocrit levels. Considering that the patient had an acute CVA, the patient would benefit from anticoagulation (NOAC therapy) and if is unable to be on anticoagulation, consider left atrial appendage occlusion device in the future. There is no further inpatient cardiac workup indicated at this time. The patient will need to follow up with Cardiology in the outpatient setting within 1-2 weeks post discharge. Thank you for allowing us to care for this patient. Please call with any questions or concerns. This medical document was created using an electronic medical record system with voice recognition software and computerized dictation system. Although this document has been carefully reviewed, there might still be some phonetic and typographical errors. Occasional wrong-word or ``sound-alike substitutions may have occurred due to the inherent limitations of voice recognition software. These areas are purely typographical due to imperfections of the software programs and do not reflect any compromise in the patient's medical care. Please read the chart carefully and recognize, using context, where these substitutions have occurred. Plan discussed with: Other Dietary Evaluation Review Comments: 1) Nepro Carbsteady 240ml TID 2) Consider renal standard diet 3) Monitor PO intake, lab values, weight trend, and I/O Expected Outcomes/Goals: To meet >75% estimated needs lab values to improve Fu 3-5 days CC Plasma Assessment Blood Product Administration S: [id number] Date of Service: Dec 01, 2024 Billing Provider: ENMANUEL OCHOA Common Visit Codes: [id number] INP/OBS CARE(HIGH) ENMANUEL OCHOA Dec 01, 2024 12:30
--- NOTE | 2024-12-01 13:54 | DVHPN2 ---
Progress Note Date Seen: Dec 01, 2024 Medical Necessity Reason Pt with a Central, PICC or Fol: Yes The following are medically ne: Ashraf Catheter Subjective Changes from previous H/P or p: No Changes Objective vital signs Vital Sign Date Time Temp Pulse Resp B/P (MAP) Pulse Ox O2 Delivery O2 Flow Rate FiO2 12/01/24 12:26 100 19 99 12/01/24 12:20 Nasal Cannula 2.0 12/01/24 12:20 28 12/01/24 05:00 99.8 140/48 (78) 99.8 Total Intake and Output 11/30/24 11/30/24 12/01/24 15:00 23:00 07:00 Intake Total 50 ml Balance 50 ml medications Current Medications Medications Dose Ordered Sig/Delfino Route Start Time Stop Time Status Last Admin Dose Admin Amlodipine Besylate 10 mg DAILY PO 11/22/24 10:00 11/25/24 10:19 10 MG Ipratropium [place] 0.5 mg Q6HWA NEB 11/21/24 22:00 12/01/24 12:20 0.5 MG Hydralazine HCl 10 mg Q4HP PRN IV 11/23/24 09:15 12/01/24 00:16 10 MG Pantoprazole Sodium 40 mg BID IV 11/23/24 22:00 12/01/24 09:54 40 MG Sucralfate 1 gm BID PO 11/25/24 22:00 Diagnostic Test (Pha) 1 strip Q6HR 11/25/24 18:00 12/01/24 12:31 1 STRIP Insulin Human Regular FOLLOW SLIDING SCALE Q6HR SC 11/25/24 18:00 12/01/24 12:31 2 UNITS Dextrose 50 ml UD IV 11/25/24 17:15 Amino Acids/ Electrolytes/ Dextrose 1,000 ml @ 41 mls/hr DAILY@2200 IV 11/25/24 22:00 12/02/24 21:59 11/30/24 21:20 41 MLS/HR Ceftriaxone Sodium 50 ml @ 100 mls/hr DAILY@09 IV 11/26/24 09:00 12/01/24 09:54 100 MLS/HR Aspirin 300 mg DAILY [place] 11/26/24 16:00 11/30/24 09:36 300 MG Atorvastatin Calcium 40 mg HS PO 11/26/24 22:00 Amiodarone HCl 200 mg Q12HR PO 11/28/24 22:00 Metoprolol Tartrate 1.25 mg Q6HPRN PRN IV 11/28/24 18:30 Amino Acids 0 ml @ 0 mls/hr PER PHARMACY IV 11/30/24 15:15 Examination: GENERAL:Abnormal, CVS:Normal, NEURO:Abnormal laboratory and microbiology Laboratory Tests 12/01/24 06:28 Test 12/01/24 06:28 Range/Units Serum Glucose 125 H 74-106 mg/dL Microbiology Date/Time Source Procedure Growth Status 11/25/24 09:23 Urine - Midstream Clean Catch Urine Culture - Final Complete 11/22/24 06:00 Nose MRSA Screen - Final Complete Problem List/Assessment/Plan Problem List/Assessment/Plan Admitted for acute CVA ESRD on HD HTN hx of COPD Anemia CVA fronto parietal HD on sunday Strict I&Os Blood pressure control epogen 3x a week Plan discussed with: Other Dietary Evaluation Review Comments: 1) Nepro Carbsteady 240ml TID 2) Consider renal standard diet 3) Monitor PO intake, lab values, weight trend, and I/O Expected Outcomes/Goals: To meet >75% estimated needs lab values to improve Fu 3-5 days Total Time (mins): 35 CC Plasma Assessment Blood Product Administration S: [id number] TERESA REYNOLDS MD Dec 01, 2024 13:54
[2024-12-01] MEDS ORDERED: EPOETIN ALFA-EPBX 10,000 UNIT/1ML VIAL SC SCH (14:00)
--- NOTE | 2024-12-01 16:42 | DVHPN2 ---
Subjective Patient is currently on Clinimix, failed swallow evaluation, another swallow evaluation has been ordered for Sunday. 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, wiggling toes left side, right-sided neglect, left-sided hemiplegia Medications Current Medications Medications Dose Ordered Sig/Delfino Route Start Time Stop Time Status Last Admin Dose Admin Amlodipine Besylate 10 mg DAILY PO 11/22/24 10:00 11/25/24 10:19 10 MG Ipratropium [place] 0.5 mg Q6HWA NEB 11/21/24 22:00 12/01/24 12:20 0.5 MG Hydralazine HCl 10 mg Q4HP PRN IV 11/23/24 09:15 12/01/24 00:16 10 MG Pantoprazole Sodium 40 mg BID IV 11/23/24 22:00 12/01/24 09:54 40 MG Sucralfate 1 gm BID PO 11/25/24 22:00 Diagnostic Test (Pha) 1 strip Q6HR 11/25/24 18:00 12/01/24 12:31 1 STRIP Insulin Human Regular FOLLOW SLIDING SCALE Q6HR SC 11/25/24 18:00 12/01/24 12:31 2 UNITS Dextrose 50 ml UD IV 11/25/24 17:15 Amino Acids/ Electrolytes/ Dextrose 1,000 ml @ 41 mls/hr DAILY@2200 IV 11/25/24 22:00 12/02/24 21:59 11/30/24 21:20 41 MLS/HR Ceftriaxone Sodium 50 ml @ 100 mls/hr DAILY@09 IV 11/26/24 09:00 12/01/24 09:54 100 MLS/HR Aspirin 300 mg DAILY [place] 11/26/24 16:00 11/30/24 09:36 300 MG Atorvastatin Calcium 40 mg HS PO 11/26/24 22:00 Amiodarone HCl 200 mg Q12HR PO 11/28/24 22:00 Metoprolol Tartrate 1.25 mg Q6HPRN PRN IV 11/28/24 18:30 Amino Acids 0 ml @ 0 mls/hr PER PHARMACY IV 11/30/24 15:15 Epoetin Rolando-epbx 4,000 unit MWF [place] 12/01/24 14:00 UNV Epoetin Rolando-epbx 4,000 unit MWF ID 12/01/24 14:00 Laboratory Results Laboratory Tests 12/01/24 06:28 Chemistry Test 12/01/24 06:28 Albumin 3.8 g/dL (3.2-4.8) Calcium Level 9.2 mg/dL (8.7-10.4) Magnesium Level 2.0 mg/dL (1.6-2.6) Phosphorus Level 3.8 mg/dL (2.4-5.1) Total Protein 6.7 g/dL (5.7-8.2) Coagulation Test 12/01/24 10:43 Prothrombin Time 18.3 sec (9.3-11.8) H Prothrombin Time INR 1.83 (0.9-1.15) H Activated Partial Thromboplast Time 49.3 SEC (24.5-34.5) H LFT Test 12/01/24 06:28 Alanine Aminotransferase (ALT) 30 U/L (7-40) Alkaline Phosphatase 149 U/L (46-116) H Aspartate Amino Transferase (AST) 40 U/L (13-40) Total Bilirubin 0.6 mg/dL (0.2-1.0) Urinalysis Test 11/23/24 05:50 11/25/24 09:23 Urine Amorphous Crystals Few /hpf (None Seen) Urine Color Light-brown (Yellow) Urine Clarity Turbid (Clear) H Urine pH 8.5 (5.0-9.0) Urine Specific [place] 1.011 (1.001-1.035) Urine Protein 3+ (Negative) H Urine Ketones Trace (Negative) Urine Blood 3+ /uL (Negative) H Urine Nitrite Negative (Negative) Urine Bilirubin Negative (Negative) Urine Urobilinogen Normal mg/dL (Negative) Urine Leukocyte Esterase 3+ /uL (Negative) Urine RBC 2271 /hpf (0 - 3) Urine WBC Clumps Present /hpf (None Seen) Urine Microscopic WBC 312 /HPF (0-3) H Urine Squamous Epithelial Cells None seen /hpf (<5) Urine Bacteria None seen /hpf (None Seen) Urine Glucose Trace mg/dL (Normal) Microbiology Microbiology Date/Time Source Procedure Growth Status 11/25/24 09:23 Urine - Midstream Clean Catch Urine Culture - Final Complete 11/22/24 06:00 Nose MRSA Screen - Final Complete Assessment/Plan Assessment/Plan 78-year-old male with a known history of colon cancer status post partial colectomy status post oral chemotherapy currently in remission, end-stage renal disease on hemodialysis, hypertension, COPD initially presented to hospital with a black tarry stools found to have 1. Acute/subacute right MCA with left-sided hemiplegia 2. Acute delirium/acute encephalopathy suspect secondary to acute CVA 3.Melanotic stools rule out upper GI bleed, status post EGD showed gastro duodenitis 4. History of colon cancer status post partial colectomy status post chemotherapy, status post colostomy 5. End-stage renal disease on hemodialysis 6.. Hypertension 7. COPD 8. Failed swallow evaluation -repeat swallow evaluation today. -aspirin, statin, neurology consultation appreciated -new Protonix and Carafate -TPN per pharmacy, if patient failed swallow evaluation given might start TPN or tube feeding -no family member at bedside today, aspiration and fall precaution and pressure ulcer precautions. Plan discussed with: Other My Orders Orders - BRIE BOLAND MD Procedure Category Date Status Time Comprehensive LAB 12/02/24 Verified Metabolic Panel 04:00 Magnesium LAB 12/02/24 Verified 04:00 Phosphorus LAB 12/02/24 Verified 04:00 Tpn Per Pharmacy SONJA 12/01/24 In Process 22:00 * Swallow Request ST 12/01/24 Transmitted 16:31 Date of Service: Dec 01, 2024 Billing Provider: BRIE BOLAND MD Common Visit Codes: [id number] INP/OBS CARE(MOD) BRIE BOLAND MD Dec 01, 2024 16:42
--- NOTE | 2024-12-01 17:17 | DVHPN2 ---
Progress Note Date Seen: Dec 01, 2024 Resident Creating Document: ROBLES SWEENEY RESIDENT Medical Necessity Reason Pt with a Central, PICC or Fol: Yes The following are medically ne: Ashraf Catheter Subjective Review of Systems From a GI perspective, the patient remains NPO due to aspiration risk and failed recent swallow evaluation. He is currently receiving IV nutrition via Clinimix at 41 mL/hr due to inability to tolerate enteral intake. A repeat swallow evaluation is pending. There has been minimal output via the colostomy tube, and no nausea, vomiting, or new abdominal complaints have been reported. Last bowel movement was on 11/26/2024. Currently receiving ceftriaxone for infection control. No abdominal pain or distension noted. Still non-verbal and unable to reliably communicate GI symptoms. Continues on carafate, IV Protonix, and sliding scale insulin. Todays Progress, Relevant Labs, Imaging & Treatment: * Feeds: Patient remains NPO due to failed swallow evaluation; Clinimix (TPN) is infusing at 41 mL/hr via PICC. * Bowel Function: Minimal output in colostomy tube; no BM since 11/26. * Antibiotics: On ceftriaxone for presumed infection. * Labs: * Hgb: 9.1 (stable) * WBC: 8.7 (downtrending) * Alk Phos: 149 (mildly elevated; monitor) * BUN/Cr: 72 / 7.15 (CKD5; on dialysis) * Urine culture, MRSA screen: Negative * Imaging: No new abdominal imaging today. * Swallow Eval: Failed previous swallow evaluation; repeat scheduled. * Hemodialysis: Scheduled for tomorrow (Sunday). Objective vital signs Vital Sign Date Time Temp Pulse Resp B/P (MAP) Pulse Ox O2 Delivery O2 Flow Rate FiO2 12/01/24 12:26 100 19 99 12/01/24 12:20 Nasal Cannula 2.0 12/01/24 12:20 28 12/01/24 05:00 99.8 140/48 (78) 99.8 Total Intake and Output 11/30/24 11/30/24 12/01/24 15:00 23:00 07:00 Intake Total 50 ml Balance 50 ml medications Current Medications Medications Dose Ordered Sig/Delfino Route Start Time Stop Time Status Last Admin Dose Admin Amlodipine Besylate 10 mg DAILY PO 11/22/24 10:00 11/25/24 10:19 10 MG Ipratropium [place] 0.5 mg Q6HWA NEB 11/21/24 22:00 12/01/24 12:20 0.5 MG Hydralazine HCl 10 mg Q4HP PRN IV 11/23/24 09:15 12/01/24 00:16 10 MG Pantoprazole Sodium 40 mg BID IV 11/23/24 22:00 12/01/24 09:54 40 MG Sucralfate 1 gm BID PO 11/25/24 22:00 Diagnostic Test (Pha) 1 strip Q6HR 11/25/24 18:00 12/01/24 12:31 1 STRIP Insulin Human Regular FOLLOW SLIDING SCALE Q6HR SC 11/25/24 18:00 12/01/24 12:31 2 UNITS Dextrose 50 ml UD IV 11/25/24 17:15 Amino Acids/ Electrolytes/ Dextrose 1,000 ml @ 41 mls/hr DAILY@2200 IV 11/25/24 22:00 12/02/24 21:59 11/30/24 21:20 41 MLS/HR Ceftriaxone Sodium 50 ml @ 100 mls/hr DAILY@09 IV 11/26/24 09:00 12/01/24 09:54 100 MLS/HR Aspirin 300 mg DAILY [place] 11/26/24 16:00 11/30/24 09:36 300 MG Atorvastatin Calcium 40 mg HS PO 11/26/24 22:00 Amiodarone HCl 200 mg Q12HR PO 11/28/24 22:00 Metoprolol Tartrate 1.25 mg Q6HPRN PRN IV 11/28/24 18:30 Amino Acids 0 ml @ 0 mls/hr PER PHARMACY IV 11/30/24 15:15 Epoetin Rolando-epbx 4,000 unit MWF [place] 12/01/24 14:00 UNV Epoetin Rolando-epbx 4,000 unit MWF [place] 12/01/24 14:00 Examination * Abdomen: Soft, non-distended, non-tender, no guarding or rebound * Colostomy Site: Intact, minimal output noted * Bowel sounds: Present * Skin: No signs of dehydration or rash laboratory and microbiology Laboratory Tests 12/01/24 06:28 Test 12/01/24 06:28 Range/Units Serum Glucose 125 H 74-106 mg/dL Microbiology Date/Time Source Procedure Growth Status 11/25/24 09:23 Urine - Midstream Clean Catch Urine Culture - Final Complete 11/22/24 06:00 Nose MRSA Screen - Final Complete Problem List/Assessment/Plan Problem List/Assessment/Plan Assessment 1. Upper GI bleed with melena resolved; no current bleeding. 2. Gastroduodenitis continue PPI and Carafate. 3. Severe anemia (multifactorial, prior GI loss and CKD) stable post- transfusion. 4. Parastomal hernia stable, no obstruction. 5. Nutritional compromise with failed swallow evaluation requires NG tube placement for enteral feeding and medication delivery. 6. ESRD on HD continue scheduled dialysis. 7. Acute right MCA stroke with dysphagia managed by neurology. 8. Atrial fibrillation (now sinus rhythm on amiodarone) Plan GI/Nutrition: * Continue Clinimix IV 41 mL/hr via PICC. * Monitor electrolytes, glucose, liver function, triglycerides. * Plan for repeat swallow evaluation. * If failed again, consider PEG vs long-term NG placement. Stomach Protection: * Continue IV Protonix for stress ulcer prophylaxis. * Continue carafate as indicated. Bowel Function: * Monitor colostomy output and abdominal distension. * Consider rectal exam and/or bowel regimen if no BM in >5 days. Liver Monitoring: * Continue trending LFTs (particularly Alk Phos and GGT if elevated). * Evaluate for TPN-related cholestasis if levels continue to rise. Infection: * Continue ceftriaxone; re-evaluate once clinical picture improves. * GI source unlikely based on current findings. Anticoagulation * Now cleared to start Lovenox (enoxaparin) per anticoagulation protocol. * Monitor CBC and watch for any GI bleeding. Case discussed in detail with the attending physician, including the clinical presentation, diagnostic workup, and comprehensive management plan. Plan discussed with: Other (RN) Dietary Evaluation Review Comments: 1) Nepro Carbsteady 240ml TID 2) Consider renal standard diet 3) Monitor PO intake, lab values, weight trend, and I/O Expected Outcomes/Goals: To meet >75% estimated needs lab values to improve Fu 3-5 days CC Plasma Assessment Blood Product Administration S: [id number] ROBLES SWEENEY RESIDENT Dec 01, 2024 17:17
[2024-12-01] MEDS: EPOETIN ALFA-EPBX 4,000 UNIT/ML VIAL SC SCH (18:46)
--- NOTE | 2024-12-01 23:17 | DVHPN2 ---
Progress Note - Dictate Date Seen: Dec 01, 2024 Medical Necessity Reason Pt with a Central, PICC or Fol: Yes The following are medically ne: Ashraf Catheter Subjective Mr. Abkar is a 78 years old gentleman with a history of hypertension, dyslipidemia, COPD, end-stage kidney failure on hemodialysis, colon cancer status post colostomy, he was brought to the [facility] on 11/21/2024 with a chief company of general weakness and dark stool. I have seen and examined the patient, I have talked to his nurse, he is doing okay, open eyes, but he may only oriented to person Stool occult blood, 11/21/2024: Positive Urinalysis, 11/23/2024: UTI UDS, 11/23/2024: Negative WBC/HB/PLT/MCV, 11/21/2024: 12.3/5.8/267/94.5, 11/25/2024: 11.8/9.9/275/93.6 PT/INR/PTT, 11/21/2024: 13/1.25/41.6 BUN/CR, 11/26/2024: 53/6.41 HGB A1c, 11/21/2024: <3.8 TG/HDL/LDL/HDL, 11/27/2024: 203/156/93/21 Vitamin B12, 11/21/2024: 452 TSH, 11/21/2024: 2.27 EKG, 10/3124: AFib Carotid Doppler, 11/26/2024: 1. No hemodynamically significant stenosis noted in the right carotid system. Approximately 50-69 % focal stenosis in the mid right internal carotid artery. 2. No hemodynamically significant stenosis noted in the left carotid system. 3. The vertebral arteries were not visualized. Echocardiogram, 11/27/2024: Sinus rhythm. Concentric LVH with left atrial enlargement and aortic root enlargement. Dilation of the sinuses of Valsalva. Moderate mitral annular calcification of the base of the posterior mitral leaflet. The aortic and tricuspid appear to be structurally normal. Left ventricular systolic performance appears to be preserved. EF is about 55%. There is impaired diastolic relaxation. Normal RV function. There is mild aortic insufficiency. Mild tricuspid regurgitation. No pericardial effusion masses or vegetations. CT head, 11/09/2024: Acute to subacute infarction of the right frontoparietal lobe with thrombus in the right middle cerebral artery M2 segment. Recommend neurology consultation. Moderate chronic microvascular ischemic changes. MRI head, 11/26/2024: Acute infarction right middle cerebral artery distribution involving the right frontal and parietal lobes. Findings consistent with right M2 middle cerebral artery segment occlusion/thrombosis. Moderate chronic microvascular ischemic changes. EGD, 11/25/2024: 1. Minimal gastroduodenitis 2. Otherwise normal examination up to the 2nd and 3rd part of the duodenal with no fresh or old blood in the upper GI tract vital signs Vital Sign Date Time Temp Pulse Resp B/P (MAP) Pulse Ox O2 Delivery O2 Flow Rate FiO2 12/01/24 21:00 97.9 104 20 154/58 (90) 98 97.9 12/01/24 19:26 Nasal Cannula 2.0 12/01/24 19:26 28 Total Intake and Output 11/30/24 11/30/24 12/01/24 15:00 23:00 07:00 Intake Total 50 ml Balance 50 ml medications Current Medications Medications Dose Ordered Sig/Delfino Route Start Time Stop Time Status Last Admin Dose Admin Amlodipine Besylate 10 mg DAILY PO 11/22/24 10:00 11/25/24 10:19 10 MG Ipratropium [place] 0.5 mg Q6HWA NEB 11/21/24 22:00 12/01/24 19:26 0.5 MG Hydralazine HCl 10 mg Q4HP PRN IV 11/23/24 09:15 12/01/24 17:23 10 MG Pantoprazole Sodium 40 mg BID IV 11/23/24 22:00 12/01/24 21:21 40 MG Sucralfate 1 gm BID PO 11/25/24 22:00 Diagnostic Test (Pha) 1 strip Q6HR 11/25/24 18:00 12/01/24 17:22 1 STRIP Insulin Human Regular FOLLOW SLIDING SCALE Q6HR [place] 11/25/24 18:00 12/01/24 17:23 2 UNITS Dextrose 50 ml UD IV 11/25/24 17:15 Amino Acids/ Electrolytes/ Dextrose 1,000 ml @ 41 mls/hr DAILY@2200 IV 11/25/24 22:00 12/02/24 21:59 12/01/24 21:21 41 MLS/HR Ceftriaxone Sodium 50 ml @ 100 mls/hr DAILY@09 IV 11/26/24 09:00 12/01/24 09:54 100 MLS/HR Aspirin 300 mg DAILY [place] 11/26/24 16:00 11/30/24 09:36 300 MG Atorvastatin Calcium 40 mg HS PO 11/26/24 22:00 Amiodarone HCl 200 mg Q12HR PO 11/28/24 22:00 Metoprolol Tartrate 1.25 mg Q6HPRN PRN IV 11/28/24 18:30 Amino Acids 0 ml @ 0 mls/hr PER PHARMACY IV 11/30/24 15:15 Epoetin Rolando-epbx 4,000 unit MWF [place] 12/01/24 14:00 UNV Epoetin Rolando-epbx 4,000 unit MWF [place] 12/01/24 14:00 12/01/24 18:46 4,000 UNIT objective General: the patient is well developed and nourished. No acute distress. MENTAL STATUS: Subjective SPEECH, LANGUAGE, HIGHER CORTICAL FUNCTION: Subjective CRANIAL NERVES: Pupils are equal, round and reactive. EOMs full and conjugate. Facial sensation intact in all three divisions bilaterally. Mandibular strength intact. Facial muscles symmetrical and strength intact. SENSATION: Sensation to touch and pinprick is unremarkable MOTOR: Normal tone in the upper and lower extremity. Normal muscle bulk. No fasciculations. No abnormal movements or posturing. He moves the right, but not left extremities REFLEXES: Deep tendon reflexes are symmetrical. Upgoing toes in the left foot CEREBELLAR/COORDINATION: Deferred GAIT/STATION: deferred laboratory and microbiology Laboratory Tests 12/01/24 06:28 Test 12/01/24 06:28 Range/Units Serum Glucose 125 H 74-106 mg/dL Problem List Acute right MCA territory stroke with acute left hemiparesis Atrial fibrillation Altered mental status Secondary to acute stroke Metabolic encephalopathy Rule out seizure activity End-stage kidney failure Acute neck pain, etiology unclear Mass GI bleeding status post RBC transfusion History of colon cancer Gait disturbance, maybe secondary to drug effects Assessment/Plan Monitoring Supportive treatment Aspirin [place] 300 mg daily Lipitor 40 mg daily Carafate 1 g b.i.d. Protonix 40 mg b.i.d. Nephrology on case/hemodialysis GI specialist on case More recommendation per clinical course This medical document was created using an electronic medical record system with [employer] dictation system. Although this document has been carefully reviewed, there may still be some phonetic and typographical errors. These areas are purely typographical due to imperfections of the software programs, and do not reflect any compromise in the patient's medical care. Prognosis poor Dietary Evaluation Review Comments: 1) Nepro Carbsteady 240ml TID 2) Consider renal standard diet 3) Monitor PO intake, lab values, weight trend, and I/O Expected Outcomes/Goals: To meet >75% estimated needs lab values to improve Fu 3-5 days Plan discussed with: Other CC Plasma Assessment Blood Product Administration S: [id number] PATSY SALGADO MD Dec 01, 2024 23:17
[2024-12-02] VITALS (14 sets, daily range): BP systolic 104–164; BP diastolic 48–62; PULSE 91–113; RESP 14–24; TEMP 97.2–100.2; O2SAT 90–100
[2024-12-02] MEDS: SODIUM CHL 0.9% 1000 ML BAG XX ONE (07:00)
[2024-12-02 08:03] LABS: Alanine Aminotransferase 30 U/L (7-40); Albumin 3.6 g/dL (3.2-4.8); Anion Gap 17 (5-15); BUN/Creatinine Ratio 13.1 (10.0-20.0); Calcium 9.2 mg/dL (8.7-10.4); Magnesium 2.0 mg/dL (1.6-2.6); Potassium 3.6 mmol/L (3.5-5.1); Total Protein 6.5 g/dL (5.7-8.2)
[2024-12-02 08:04] LABS: Bilirubin, Total 0.5 mg/dL (0.2-1.0)
[2024-12-02 08:06] LABS: Alkaline Phosphatase 153 U/L (46-116); Carbon Dioxide 18 mmol/L (20-31); Chloride 96 mmol/L (98-107); Glucose 119 mg/dL (74-106); Sodium 131 mmol/L (136-145)
[2024-12-02 08:09] LABS: Blood Urea Nitrogen 112 mg/dL (9-23)
--- NOTE | 2024-12-02 12:53 | DVHPN2 ---
Progress Note Date Seen: Dec 02, 2024 Medical Necessity Reason Pt with a Central, PICC or Fol: Yes The following are medically ne: Ashraf Catheter Objective vital signs Vital Sign Date Time Temp Pulse Resp B/P (MAP) Pulse Ox O2 Delivery O2 Flow Rate FiO2 12/02/24 11:52 100 16 99 12/02/24 10:00 Nasal Cannula 12/02/24 10:00 2 28 12/02/24 05:00 98.7 150/62 (91) 98.7 Total Intake and Output 12/01/24 12/01/24 12/02/24 15:00 23:00 07:00 Intake Total 50 ml 0 ml Output Total 350 ml Balance 50 ml -350 ml medications Current Medications Medications Dose Ordered Sig/Delfino Route Start Time Stop Time Status Last Admin Dose Admin Amlodipine Besylate 10 mg DAILY PO 11/22/24 10:00 11/25/24 10:19 10 MG Ipratropium [place] 0.5 mg Q6HWA NEB 11/21/24 22:00 12/02/24 11:44 0.5 MG Hydralazine HCl 10 mg Q4HP PRN IV 11/23/24 09:15 12/01/24 17:23 10 MG Pantoprazole Sodium 40 mg BID IV 11/23/24 22:00 12/01/24 21:21 40 MG Sucralfate 1 gm BID PO 11/25/24 22:00 Diagnostic Test (Pha) 1 strip Q6HR 11/25/24 18:00 12/02/24 06:12 1 STRIP Insulin Human Regular FOLLOW SLIDING SCALE Q6HR [place] 11/25/24 18:00 12/02/24 00:33 2 UNITS Dextrose 50 ml UD IV 11/25/24 17:15 Amino Acids/ Electrolytes/ Dextrose 1,000 ml @ 41 mls/hr DAILY@2200 IV 11/25/24 22:00 12/02/24 21:59 12/01/24 21:21 41 MLS/HR Ceftriaxone Sodium 50 ml @ 100 mls/hr DAILY@09 IV 11/26/24 09:00 12/01/24 09:54 100 MLS/HR Aspirin 300 mg DAILY [place] 11/26/24 16:00 11/30/24 09:36 300 MG Atorvastatin Calcium 40 mg HS PO 11/26/24 22:00 Amiodarone HCl 200 mg Q12HR PO 11/28/24 22:00 Metoprolol Tartrate 1.25 mg Q6HPRN PRN IV 11/28/24 18:30 Amino Acids 0 ml @ 0 mls/hr PER PHARMACY IV 11/30/24 15:15 Epoetin Rolando-epbx 4,000 unit MWF [place] 12/01/24 14:00 UNV Epoetin Rolando-epbx 4,000 unit MWF [place] 12/01/24 14:00 12/01/24 18:46 4,000 UNIT Fat Emulsion Intravenous 100 ml/Sodium Chloride 40 meq/ Potassium Chloride 20 meq/ Multivitamins 10 ml/Chromium/ Copper/Manganese/ Zinc 1 ml/Amino Acids/Dextrose/ Purified Water 1,181 ml @ 49 mls/hr Q24H7M IV 12/02/24 22:00 12/03/24 21:59 Examination: GENERAL:Abnormal, CVS:Normal, NEURO:Abnormal laboratory and microbiology Laboratory Tests 12/02/24 06:53 12/01/24 06:28 Test 12/02/24 06:53 Range/Units Serum Glucose 119 H 74-106 mg/dL Microbiology Date/Time Source Procedure Growth Status 11/25/24 09:23 Urine - Midstream Clean Catch Urine Culture - Final Complete 11/22/24 06:00 Nose MRSA Screen - Final Complete Problem List/Assessment/Plan Problem List/Assessment/Plan Admitted for acute CVA ESRD on HD HTN hx of COPD Anemia CVA fronto parietal metabolic acidosis HD today ok for PICC line Strict I&Os Blood pressure control epogen 3x a week tube feeding nutrition as per primary team Plan discussed with: Patient My Orders My Orders Orders - TERESA REYNOLDS MD Procedure Category Date Status Time Communication Order ORDERS 12/01/24 Transmitted 13:54 Hemodialysis Orders ORDERS 12/02/24 Transmitted 07:00 Dialysis Nursing SONJA 12/02/24 In Process Message 07:00 Document Fluid Input SONJA 12/02/24 In Process And Outpu 07:00 Epoetin Rolando-Epbx PHA 12/01/24 In Process (Retacrit) 14:00 Communication Order ORDERS 12/02/24 Verified 12:48 Dietary Evaluation Review Comments: 1) Nepro Carbsteady 240ml TID 2) Consider renal standard diet 3) Monitor PO intake, lab values, weight trend, and I/O Expected Outcomes/Goals: To meet >75% estimated needs lab values to improve Fu 3-5 days Total Time (mins): 33 CC Plasma Assessment Blood Product Administration S: [id number] TERESA REYNOLDS MD Dec 02, 2024 12:53
--- NOTE | 2024-12-02 14:43 | DVHPN2 ---
Subjective In bed. Undergoing hemodialysis. Has a facemask oxygen. Appears weak and tired. Changes from previous H/P or p: No Changes Objective Vitals Vital Signs Date Time Temp Pulse Resp B/P (MAP) Pulse Ox O2 Delivery O2 Flow Rate FiO2 12/02/24 12:00 97.2 113 20 104/51 (68) 90 97.2 12/02/24 10:00 Nasal Cannula 12/02/24 10:00 2 28 Intake/Output Intake and Output 12/02/24 07:00 Intake Total 50 ml Output Total 350 ml Balance -300 ml Intake Oral 0 ml IV Total 50 ml Output Urine Total 350 ml Exam Alert and awake without any acute distress. Comfortable in bed. HEENT pupils equal round react to light. Neck supple no JVD. Heart regular rate and rhythm S1-S2. Lungs fair air movement poor inspiratory effort. No wheezing. Abdomen soft positive bowel sounds nontender. Extremities no significant edema noted positive pulses Medications Current Medications Medications Dose Ordered Sig/Delfino Route Start Time Stop Time Status Last Admin Dose Admin Amlodipine Besylate 10 mg DAILY PO 11/22/24 10:00 11/25/24 10:19 10 MG Ipratropium [place] 0.5 mg Q6HWA NEB 11/21/24 22:00 12/02/24 11:44 0.5 MG Hydralazine HCl 10 mg Q4HP PRN IV 11/23/24 09:15 12/01/24 17:23 10 MG Pantoprazole Sodium 40 mg BID IV 11/23/24 22:00 12/01/24 21:21 40 MG Sucralfate 1 gm BID PO 11/25/24 22:00 Diagnostic Test (Pha) 1 strip Q6HR 11/25/24 18:00 12/02/24 06:12 1 STRIP Insulin Human Regular FOLLOW SLIDING SCALE Q6HR SC 11/25/24 18:00 12/02/24 00:33 2 UNITS Dextrose 50 ml UD IV 11/25/24 17:15 Amino Acids/ Electrolytes/ Dextrose 1,000 ml @ 41 mls/hr DAILY@2200 IV 11/25/24 22:00 12/02/24 21:59 12/01/24 21:21 41 MLS/HR Ceftriaxone Sodium 50 ml @ 100 mls/hr DAILY@09 IV 11/26/24 09:00 12/02/24 09:00 100 MLS/HR Aspirin 300 mg DAILY [place] 11/26/24 16:00 11/30/24 09:36 300 MG Atorvastatin Calcium 40 mg HS PO 11/26/24 22:00 Amiodarone HCl 200 mg Q12HR PO 11/28/24 22:00 Metoprolol Tartrate 1.25 mg Q6HPRN PRN IV 11/28/24 18:30 Amino Acids 0 ml @ 0 mls/hr PER PHARMACY IV 11/30/24 15:15 Epoetin Rolando-epbx 4,000 unit MWF [place] 12/01/24 14:00 UNV Epoetin Rolando-epbx 4,000 unit MWF [place] 12/01/24 14:00 12/01/24 18:46 4,000 UNIT Fat Emulsion Intravenous 100 ml/Sodium Chloride 40 meq/ Potassium Chloride 20 meq/ Multivitamins 10 ml/Chromium/ Copper/Manganese/ Zinc 1 ml/Amino Acids/Dextrose/ Purified Water 1,181 ml @ 49 mls/hr Q24H7M IV 12/02/24 22:00 12/03/24 21:59 Laboratory Results Laboratory Tests 12/01/24 06:28 12/02/24 06:53 Chemistry Test 12/02/24 06:53 Albumin 3.6 g/dL (3.2-4.8) Calcium Level 9.2 mg/dL (8.7-10.4) Magnesium Level 2.0 mg/dL (1.6-2.6) Phosphorus Level 4.5 mg/dL (2.4-5.1) Total Protein 6.5 g/dL (5.7-8.2) LFT Test 12/02/24 06:53 Alanine Aminotransferase (ALT) 30 U/L (7-40) Alkaline Phosphatase 153 U/L (46-116) H Aspartate Amino Transferase (AST) 40 U/L (13-40) Total Bilirubin 0.5 mg/dL (0.2-1.0) Urinalysis Test 11/23/24 05:50 11/25/24 09:23 Urine Amorphous Crystals Few /hpf (None Seen) Urine Color Light-brown (Yellow) Urine Clarity Turbid (Clear) H Urine pH 8.5 (5.0-9.0) Urine Specific [place] 1.011 (1.001-1.035) Urine Protein 3+ (Negative) H Urine Ketones Trace (Negative) Urine Blood 3+ /uL (Negative) H Urine Nitrite Negative (Negative) Urine Bilirubin Negative (Negative) Urine Urobilinogen Normal mg/dL (Negative) Urine Leukocyte Esterase 3+ /uL (Negative) Urine RBC 2271 /hpf (0 - 3) Urine WBC Clumps Present /hpf (None Seen) Urine Microscopic WBC 312 /HPF (0-3) H Urine Squamous Epithelial Cells None seen /hpf (<5) Urine Bacteria None seen /hpf (None Seen) Urine Glucose Trace mg/dL (Normal) Microbiology Microbiology Date/Time Source Procedure Growth Status 11/25/24 09:23 Urine - Midstream Clean Catch Urine Culture - Final Complete 11/22/24 06:00 Nose MRSA Screen - Final Complete Assessment/Plan Assessment/Plan 1. Acute/subacute right MCA with left-sided hemiplegia 2. Acute delirium/acute encephalopathy suspect secondary to acute CVA 3.Melanotic stools rule out upper GI bleed, status post EGD showed gastro duodenitis 4. History of colon cancer status post partial colectomy status post chemotherapy, status post colostomy 5. End-stage renal disease on hemodialysis 6.. Hypertension 7. COPD 8. Failed swallow evaluation -repeat swallow evaluation -aspirin, statin, neurology consultation appreciated -new Protonix and Carafate -TPN per pharmacy, if patient failed swallow evaluation given might start TPN or tube feeding -no family member at bedside today, aspiration and fall precaution and pressure ulcer precautions. No changes to present management. He is undergoing hemodialysis today. Plan discussed with: Patient, Other Date of Service: Dec 02, 2024 Billing Provider: FENG BETTENCOURT MD Common Visit Codes: [id number] INP/OBS CARE(MOD) FENG BETTENCOURT MD Dec 02, 2024 14:43
--- NOTE | 2024-12-02 18:05 | DVHPN2 ---
Progress Note Date Seen: Dec 02, 2024 Resident Creating Document: ROBLES SWEENEY RESIDENT Medical Necessity Reason Pt with a Central, PICC or Fol: Yes The following are medically ne: Ashraf Catheter Subjective Review of Systems From a GI perspective, the patient the patient failed his swallow evaluation again. He is currently receiving IV nutrition via Clinimix at 41 mL/hr due to inability to tolerate enteral intake. A repeat swallow evaluation is pending. We are starting him on NG tube with Nepro with carb steady at 40 mL. There has been minimal output via the colostomy tube, and no nausea, vomiting, or new abdominal complaints have been reported. Last bowel movement was on 11/26/2024. Currently receiving ceftriaxone for infection control. No abdominal pain or distension noted. Still unable to reliably communicate GI symptoms. Continues on carafate, IV Protonix, and sliding scale insulin. Todays Progress, Relevant Labs, Imaging & Treatment: * Feeds: Patient patient started on NG tube with Nepro with carb steady at 40 m. Clinimix (TPN) is infusing at 41 mL/hr via PICC. 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 IR consult has been placed for CVC * Bowel Function: Minimal output in colostomy tube; no BM since 11/26. * Antibiotics: On ceftriaxone for presumed infection. Objective vital signs Vital Sign Date Time Temp Pulse Resp B/P (MAP) Pulse Ox O2 Delivery O2 Flow Rate FiO2 12/02/24 16:00 100.2 109 24 134/48 (76) 95 100.2 12/02/24 10:00 Nasal Cannula 12/02/24 10:00 2 28 Total Intake and Output 12/01/24 12/01/24 12/02/24 15:00 23:00 07:00 Intake Total 50 ml 0 ml Output Total 350 ml Balance 50 ml -350 ml medications Current Medications Medications Dose Ordered Sig/Delfino Route Start Time Stop Time Status Last Admin Dose Admin Amlodipine Besylate 10 mg DAILY PO 11/22/24 10:00 11/25/24 10:19 10 MG Ipratropium [place] 0.5 mg Q6HWA NEB 11/21/24 22:00 12/02/24 11:44 0.5 MG Hydralazine HCl 10 mg Q4HP PRN IV 11/23/24 09:15 12/01/24 17:23 10 MG Pantoprazole Sodium 40 mg BID IV 11/23/24 22:00 12/02/24 15:15 40 MG Sucralfate 1 gm BID PO 11/25/24 22:00 Diagnostic Test (Pha) 1 strip Q6HR 11/25/24 18:00 12/02/24 06:12 1 STRIP Insulin Human Regular FOLLOW SLIDING SCALE Q6HR SC 11/25/24 18:00 12/02/24 00:33 2 UNITS Dextrose 50 ml UD IV 11/25/24 17:15 Amino Acids/ Electrolytes/ Dextrose 1,000 ml @ 41 mls/hr DAILY@2200 IV 11/25/24 22:00 12/02/24 21:59 12/01/24 21:21 41 MLS/HR Ceftriaxone Sodium 50 ml @ 100 mls/hr DAILY@09 IV 11/26/24 09:00 12/02/24 09:00 100 MLS/HR Aspirin 300 mg DAILY [place] 11/26/24 16:00 11/30/24 09:36 300 MG Atorvastatin Calcium 40 mg HS PO 11/26/24 22:00 Amiodarone HCl 200 mg Q12HR PO 11/28/24 22:00 Metoprolol Tartrate 1.25 mg Q6HPRN PRN IV 11/28/24 18:30 Amino Acids 0 ml @ 0 mls/hr PER PHARMACY IV 11/30/24 15:15 Epoetin Rolando-epbx 4,000 unit MWF [place] 12/01/24 14:00 UNV Epoetin Rolando-epbx 4,000 unit F IN 12/01/24 14:00 12/01/24 18:46 4,000 UNIT Fat Emulsion Intravenous 100 ml/Sodium Chloride 40 meq/ Potassium Chloride 20 meq/ Multivitamins 10 ml/Chromium/ Copper/Manganese/ Zinc 1 ml/Amino Acids/Dextrose/ Purified Water 1,181 ml @ 49 mls/hr Q24H7M IV 12/02/24 22:00 12/03/24 21:59 Examination Abdomen: Soft, non-distended, non-tender, no guarding or rebound * Colostomy Site: Intact, minimal output noted * Bowel sounds: Present * Skin: No signs of dehydration or rash laboratory and microbiology Laboratory Tests 12/02/24 06:53 12/01/24 06:28 Test 12/02/24 06:53 Range/Units Serum Glucose 119 H 74-106 mg/dL Microbiology Date/Time Source Procedure Growth Status 11/25/24 09:23 Urine - Midstream Clean Catch Urine Culture - Final Complete 11/22/24 06:00 Nose MRSA Screen - Final Complete Problem List/Assessment/Plan Problem List/Assessment/Plan Assessment 1. Upper GI bleed with melena resolved; no current bleeding. 2. Gastroduodenitis continue PPI and Carafate. 3. Severe anemia (multifactorial, prior GI loss and CKD) stable post- transfusion. 4. Parastomal hernia stable, no obstruction. 5. Nutritional compromise with failed swallow evaluation requires NG tube placement for enteral feeding and medication delivery. 6. ESRD on HD continue scheduled dialysis. 7. Acute right MCA stroke with dysphagia managed by neurology. 8. Atrial fibrillation (now sinus rhythm on amiodarone) Plan GI/Nutrition: Started Nepro with carb steady at 40 mL via NG tube. Administer an NG tube. * Continue Clinimix IV 41 mL/hr via PICC. * Monitor electrolytes, glucose, liver function, triglycerides. * Plan for repeat swallow evaluation. * If failed again, consider PEG vs long-term NG placement. Stomach Protection: * Continue IV Protonix for stress ulcer prophylaxis. * Continue carafate as indicated. Bowel Function: * Monitor colostomy output and abdominal distension. * Consider rectal exam and/or bowel regimen if no BM in >5 days. Liver Monitoring: * Continue trending LFTs (particularly Alk Phos and GGT if elevated). * Evaluate for TPN-related cholestasis if levels continue to rise. Infection: * Continue ceftriaxone; re-evaluate once clinical picture improves. * GI source unlikely based on current findings. Anticoagulation * Now cleared to start Lovenox (enoxaparin) per anticoagulation protocol. * Monitor CBC and watch for any GI bleeding. Case discussed in detail with the attending physician, including the clinical presentation, diagnostic workup, and comprehensive management plan. Plan discussed with: Daughter My Orders My Orders Orders - ROBLES SWEENEY RESIDENT Procedure Category Date Status Time Place Ng ORDERS 12/02/24 Verified 17:58 Nutritional PHA 12/02/24 Verified Supplements (Nepro 18:00 Dietary Evaluation Review Comments: 1) Nepro Carbsteady 240ml TID 2) Consider renal standard diet 3) Monitor PO intake, lab values, weight trend, and I/O Expected Outcomes/Goals: To meet >75% estimated needs lab values to improve Fu 3-5 days CC Plasma Assessment Blood Product Administration S: [id number] ROBLES SWEENEY RESIDENT Dec 02, 2024 18:05
[2024-12-02] MEDS ORDERED: CLINIMIX PER PHARMACY 0 ML IV SCH (20:00)
--- NOTE | 2024-12-02 20:16 | DVHPN2 ---
Progress Note - Dictate Date Seen: Dec 02, 2024 Medical Necessity Reason Pt with a Central, PICC or Fol: Yes The following are medically ne: Ashraf Catheter Subjective Mr. Akbar is a 78 years old gentleman with a history of hypertension, dyslipidemia, COPD, end-stage kidney failure on hemodialysis, colon cancer status post colostomy, he was brought to the [facility] on 11/21/2024 with a chief company of general weakness and dark stool. I have seen and examined the patient, I have talked to his nurse, he is doing okay, eyes are open, and is responsive to verbal stimuli, he tracks, but he is not vocalize, he may only oriented to himself He may have possible left hemianopsia I removed a piece of blood clot from the right nose Stool occult blood, 11/21/2024: Positive Urinalysis, 11/23/2024: UTI UDS, 11/23/2024: Negative WBC/HB/PLT/MCV, 11/21/2024: 12.3/5.8/267/94.5, 11/25/2024: 11.8/9.9/275/93.6 PT/INR/PTT, 11/21/2024: 13/1.25/41.6 BUN/CR, 11/26/2024: 53/6.41 HGB A1c, 11/21/2024: <3.8 TG/HDL/LDL/HDL, 11/27/2024: 203/156/93/21 Vitamin B12, 11/21/2024: 452 TSH, 11/21/2024: 2.27 EKG, 10/3124: AFib Carotid Doppler, 11/26/2024: 1. No hemodynamically significant stenosis noted in the right carotid system. Approximately 50-69 % focal stenosis in the mid right internal carotid artery. 2. No hemodynamically significant stenosis noted in the left carotid system. 3. The vertebral arteries were not visualized. Echocardiogram, 11/27/2024: Sinus rhythm. Concentric LVH with left atrial enlargement and aortic root enlargement. Dilation of the sinuses of Valsalva. Moderate mitral annular calcification of the base of the posterior mitral leaflet. The aortic and tricuspid appear to be structurally normal. Left ventricular systolic performance appears to be preserved. EF is about 55%. There is impaired diastolic relaxation. Normal RV function. There is mild aortic insufficiency. Mild tricuspid regurgitation. No pericardial effusion masses or vegetations. CT head, 11/09/2024: Acute to subacute infarction of the right frontoparietal lobe with thrombus in the right middle cerebral artery M2 segment. Recommend neurology consultation. Moderate chronic microvascular ischemic changes. MRI head, 11/26/2024: Acute infarction right middle cerebral artery distribution involving the right frontal and parietal lobes. Findings consistent with right M2 middle cerebral artery segment occlusion/thrombosis. Moderate chronic microvascular ischemic changes. EGD, 11/25/2024: 1. Minimal gastroduodenitis 2. Otherwise normal examination up to the 2nd and 3rd part of the duodenal with no fresh or old blood in the upper GI tract vital signs Vital Sign Date Time Temp Pulse Resp B/P (MAP) Pulse Ox O2 Delivery O2 Flow Rate FiO2 12/02/24 18:28 105 20 100 12/02/24 18:22 Nasal Cannula 5.0 12/02/24 18:22 40 12/02/24 16:00 100.2 134/48 (76) 100.2 Total Intake and Output 12/01/24 12/01/24 12/02/24 15:00 23:00 07:00 Intake Total 50 ml 0 ml Output Total 350 ml Balance 50 ml -350 ml medications Current Medications Medications Dose Ordered Sig/Delfino Route Start Time Stop Time Status Last Admin Dose Admin Amlodipine Besylate 10 mg DAILY PO 11/22/24 10:00 11/25/24 10:19 10 MG Ipratropium [place] 0.5 mg Q6HWA NEB 11/21/24 22:00 12/02/24 18:22 0.5 MG Hydralazine HCl 10 mg Q4HP PRN IV 11/23/24 09:15 12/01/24 17:23 10 MG Pantoprazole Sodium 40 mg BID IV 11/23/24 22:00 12/02/24 15:15 40 MG Sucralfate 1 gm BID PO 11/25/24 22:00 Diagnostic Test (Pha) 1 strip Q6HR 11/25/24 18:00 12/02/24 18:12 1 STRIP Insulin Human Regular FOLLOW SLIDING SCALE Q6HR SC 11/25/24 18:00 12/02/24 00:33 2 UNITS Dextrose 50 ml UD IV 11/25/24 17:15 Amino Acids/ Electrolytes/ Dextrose 1,000 ml @ 41 mls/hr DAILY@2200 IV 11/25/24 22:00 12/02/24 21:59 12/01/24 21:21 41 MLS/HR Ceftriaxone Sodium 50 ml @ 100 mls/hr DAILY@09 IV 11/26/24 09:00 12/02/24 09:00 100 MLS/HR Aspirin 300 mg DAILY [place] 11/26/24 16:00 12/02/24 18:01 300 MG Atorvastatin Calcium 40 mg HS PO 11/26/24 22:00 Amiodarone HCl 200 mg Q12HR PO 11/28/24 22:00 Metoprolol Tartrate 1.25 mg Q6HPRN PRN IV 11/28/24 18:30 Amino Acids 0 ml @ 0 mls/hr PER PHARMACY IV 11/30/24 15:15 Epoetin Rolando-epbx 4,000 unit MWF [place] 12/01/24 14:00 UNV Epoetin Rolando-epbx 4,000 unit MWF [place] 12/01/24 14:00 12/01/24 18:46 4,000 UNIT Fat Emulsion Intravenous 100 ml/Sodium Chloride 40 meq/ Potassium Chloride 20 meq/ Multivitamins 10 ml/Chromium/ Copper/Manganese/ Zinc 1 ml/Amino Acids/Dextrose/ Purified Water 1,181 ml @ 49 mls/hr Q24H7M IV 12/02/24 22:00 12/03/24 21:59 Enteral Nutritional Formula 1,000 ml 40ML/HR NG 12/02/24 18:00 objective General: the patient is well developed and nourished. No acute distress. MENTAL STATUS: Subjective SPEECH, LANGUAGE, HIGHER CORTICAL FUNCTION: Subjective CRANIAL NERVES: Pupils are equal, round and reactive. EOMs full and conjugate. Facial sensation intact in all three divisions bilaterally. Mandibular strength intact. Facial muscles symmetrical and strength intact. SENSATION: Sensation to touch and pinprick is unremarkable MOTOR: Normal tone in the upper and lower extremity. Normal muscle bulk. No fasciculations. No abnormal movements or posturing. He moves the right, questionable movement in the left leg, he does not move the left arm REFLEXES: Deep tendon reflexes are symmetrical. Upgoing toes in the left foot CEREBELLAR/COORDINATION: Deferred GAIT/STATION: deferred laboratory and microbiology Laboratory Tests 12/02/24 06:53 12/01/24 06:28 Test 12/02/24 06:53 Range/Units Serum Glucose 119 H 74-106 mg/dL Problem List Acute right MCA territory stroke with acute left hemiparesis Atrial fibrillation Altered mental status Secondary to acute stroke Metabolic encephalopathy Rule out seizure activity End-stage kidney failure Acute neck pain, etiology unclear Mass GI bleeding status post RBC transfusion History of colon cancer Gait disturbance, maybe secondary to drug effects Assessment/Plan Monitoring Supportive treatment Aspirin PA 300 mg daily Lipitor 40 mg daily Carafate 1 g b.i.d. Protonix 40 mg b.i.d. Nephrology on case/hemodialysis GI specialist on case More recommendation per clinical course This medical document was created using an electronic medical record system with sambaash dictation system. Although this document has been carefully reviewed, there may still be some phonetic and typographical errors. These areas are purely typographical due to imperfections of the software programs, and do not reflect any compromise in the patient's medical care. Prognosis poor Dietary Evaluation Review Comments: 1) Nepro Carbsteady 240ml TID 2) Consider renal standard diet 3) Monitor PO intake, lab values, weight trend, and I/O Expected Outcomes/Goals: To meet >75% estimated needs lab values to improve Fu 3-5 days Plan discussed with: Other CC Plasma Assessment Blood Product Administration S: [id number] PATSY SALGADO MD Dec 02, 2024 20:16
[2024-12-02] MEDS: FAT EMULSION IV NR (22:31)
[2024-12-02] MEDS: [UNRECOGNIZED DRUG - OTHER] IV NR (22:31)
[2024-12-02] MEDS: SODIUM CHLORIDE IV NR (22:31)
[2024-12-02] MEDS: POTASSIUM CHLORIDE IV NR (22:31)
[2024-12-03] VITALS (17 sets, daily range): BP systolic 147–166; BP diastolic 46–66; PULSE 83–111; RESP 17–20; TEMP 97.8–99.5; O2SAT 92–100
[2024-12-03 08:17] LABS: Alanine Aminotransferase 39 U/L (7-40); Albumin 3.5 g/dL (3.2-4.8); Anion Gap 13 (5-15); BUN/Creatinine Ratio 11.2 (10.0-20.0); Bilirubin, Total 0.6 mg/dL (0.2-1.0); Calcium 8.8 mg/dL (8.7-10.4); Carbon Dioxide 24 mmol/L (20-31); Magnesium 2.1 mg/dL (1.6-2.6); Potassium 3.7 mmol/L (3.5-5.1); Total Protein 6.2 g/dL (5.7-8.2)
[2024-12-03 08:19] LABS: Alkaline Phosphatase 162 U/L (46-116); Blood Urea Nitrogen 62 mg/dL (9-23); Chloride 98 mmol/L (98-107); Glucose 111 mg/dL (74-106); Sodium 135 mmol/L (136-145)
--- NOTE | 2024-12-03 13:43 | DVH ---
US Bilat Upper Ext Art Duplex COMPARISON: US CAROTID DUPLX W COLOR DOP on DOS: 11/26/24 HISTORY: AVF TECHNIQUE: Transverse and longitudinal sonographic images were obtained of the right and left arm with ultrasound, color doppler, and spectral doppler. FINDINGS: PSV: Right axillary artery: 154 cm/s Right brachial artery: 561 cm/s proximally, 126 cm/s mid, 125 cm/s distally, 194 cm/s anastomosis. Right radial artery: 74 cm/s Right ulnar artery: 51 cm/s Right cephalic vein outflow 84 cm/s in fistula. Left subclavian artery: 240 cm/s Left axillary artery: 176 cm/s Left brachial artery: 99 cm/s proximally, 101 cm/s mid, 155 cm/s distally, 127 cm/s anastomosis. Left radial artery: 145 cm/s Left ulnar artery: 86 cm/s Left cephalic and basilic vein thrombus. IMPRESSION: Probably patent right AVF which is not completely imaged. Probably thrombosed left AVF which is not completely imaged. Elevated velocities in the right brachial artery could be stenosis.
--- NOTE | 2024-12-03 16:04 | DVHPN2 ---
Subjective In bed comfortable with the distress and is on 2 L nasal cannula. Patient is more alert and awake today. lead instructor/flight attendant at bedside. Changes from previous H/P or p: No Changes Objective Vitals Vital Signs Date Time Temp Pulse Resp B/P (MAP) Pulse Ox O2 Delivery O2 Flow Rate FiO2 12/03/24 13:00 98.0 100 18 147/51 (83) 97 98.0 12/03/24 10:00 Nasal Cannula 2.0 12/03/24 10:00 28 Intake/Output Intake and Output 12/03/24 07:00 Intake Total 50 ml Output Total 350 ml Balance -300 ml Intake Oral 0 ml IV Total 50 ml Output Urine Total 350 ml Exam Alert and awake without any acute distress. Comfortable in bed. HEENT pupils equal round react to light. Neck supple no JVD. Heart regular rate and rhythm S1-S2. Lungs fair air movement poor inspiratory effort. No wheezing. Abdomen soft positive bowel sounds nontender. Extremities no significant edema noted positive pulses Medications Current Medications Medications Dose Ordered Sig/Delfino Route Start Time Stop Time Status Last Admin Dose Admin Amlodipine Besylate 10 mg DAILY PO 11/22/24 10:00 11/25/24 10:19 10 MG Ipratropium [place] 0.5 mg Q6HWA NEB 11/21/24 22:00 12/03/24 11:56 0.5 MG Hydralazine HCl 10 mg Q4HP PRN IV 11/23/24 09:15 12/03/24 09:57 10 MG Pantoprazole Sodium 40 mg BID IV 11/23/24 22:00 12/03/24 09:56 40 MG Sucralfate 1 gm BID PO 11/25/24 22:00 Diagnostic Test (Pha) 1 strip Q6HR 11/25/24 18:00 12/03/24 12:00 1 STRIP Insulin Human Regular FOLLOW SLIDING SCALE Q6HR SC 11/25/24 18:00 12/03/24 12:00 2 UNITS Dextrose 50 ml UD IV 11/25/24 17:15 Ceftriaxone Sodium 50 ml @ 100 mls/hr DAILY@09 IV 11/26/24 09:00 12/03/24 09:09 100 MLS/HR Aspirin 300 mg DAILY OR 11/26/24 16:00 12/02/24 18:01 300 MG Atorvastatin Calcium 40 mg HS PO 11/26/24 22:00 Amiodarone HCl 200 mg Q12HR PO 11/28/24 22:00 Metoprolol Tartrate 1.25 mg Q6HPRN PRN IV 11/28/24 18:30 Amino Acids 0 ml @ 0 mls/hr PER PHARMACY IV 11/30/24 15:15 Epoetin Rolando-epbx 4,000 unit MWF [place] 12/01/24 14:00 UNV Epoetin Rolando-epbx 4,000 unit MWF [place] 12/01/24 14:00 12/03/24 11:25 4,000 UNIT Fat Emulsion Intravenous 100 ml/Sodium Chloride 40 meq/ Potassium Chloride 20 meq/ Multivitamins 10 ml/Chromium/ Copper/Manganese/ Zinc 1 ml/Amino Acids/Dextrose/ Purified Water 1,181 ml @ 49 mls/hr Q24H7M IV 12/02/24 22:00 12/03/24 21:59 12/02/24 22:31 49 MLS/HR Enteral Nutritional Formula 1,000 ml 40ML/HR NG 12/02/24 18:00 Fat Emulsion Intravenous 150 ml/Sodium Chloride 40 meq/ Potassium Chloride 20 meq/ Multivitamins 10 ml/Chromium/ Copper/Manganese/ Zinc 1 ml/Amino Acids/Dextrose/ Purified Water 1,431 ml @ 59 mls/hr [id number] IV 12/03/24 22:00 12/04/24 21:59 Cancel Fat Emulsion Intravenous 150 ml/Sodium Chloride 40 meq/ Potassium Chloride 20 meq/ Multivitamins 10 ml/Chromium/ Copper/Manganese/ Zinc 1 ml/Amino Acids/Dextrose/ Purified Water 1,431 ml @ 59 mls/hr [id number] IV 12/03/24 22:00 12/04/24 21:59 Laboratory Results Laboratory Tests 12/01/24 06:28 12/03/24 05:44 Chemistry Test 12/03/24 05:44 Albumin 3.5 g/dL (3.2-4.8) Calcium Level 8.8 mg/dL (8.7-10.4) Magnesium Level 2.1 mg/dL (1.6-2.6) Phosphorus Level 3.4 mg/dL (2.4-5.1) Total Protein 6.2 g/dL (5.7-8.2) LFT Test 12/03/24 05:44 Alanine Aminotransferase (ALT) 39 U/L (7-40) Alkaline Phosphatase 162 U/L (46-116) H Aspartate Amino Transferase (AST) 62 U/L (13-40) H Total Bilirubin 0.6 mg/dL (0.2-1.0) Urinalysis Test 11/23/24 05:50 11/25/24 09:23 Urine Amorphous Crystals Few /hpf (None Seen) Urine Color Light-brown (Yellow) Urine Clarity Turbid (Clear) H Urine pH 8.5 (5.0-9.0) Urine Specific [place] 1.011 (1.001-1.035) Urine Protein 3+ (Negative) H Urine Ketones Trace (Negative) Urine Blood 3+ /uL (Negative) H Urine Nitrite Negative (Negative) Urine Bilirubin Negative (Negative) Urine Urobilinogen Normal mg/dL (Negative) Urine Leukocyte Esterase 3+ /uL (Negative) Urine RBC 2271 /hpf (0 - 3) Urine WBC Clumps Present /hpf (None Seen) Urine Microscopic WBC 312 /HPF (0-3) H Urine Squamous Epithelial Cells None seen /hpf (<5) Urine Bacteria None seen /hpf (None Seen) Urine Glucose Trace mg/dL (Normal) Microbiology Microbiology Date/Time Source Procedure Growth Status 11/25/24 09:23 Urine - Midstream Clean Catch Urine Culture - Final Complete 11/22/24 06:00 Nose MRSA Screen - Final Complete Assessment/Plan Assessment/Plan 1. Acute/subacute right MCA with left-sided hemiplegia 2. Acute delirium/acute encephalopathy suspect secondary to acute CVA 3.Melanotic stools rule out upper GI bleed, status post EGD showed gastro duodenitis 4. History of colon cancer status post partial colectomy status post chemotherapy, status post colostomy 5. End-stage renal disease on hemodialysis 6.. Hypertension 7. COPD 8. Failed swallow evaluation -repeat swallow evaluation -aspirin, statin, neurology consultation appreciated -new Protonix and Carafate -TPN per pharmacy, if patient failed swallow evaluation given might start TPN or tube feeding -no family member at bedside today, aspiration and fall precaution and pressure ulcer precautions. No changes to present management. We will change Reglan nasal cannula to humidify tired air with a nasal cannula due to nosebleed. Plan discussed with: Patient, Other Date of Service: Dec 03, 2024 Billing Provider: FENG BETTENCOURT MD Common Visit Codes: [id number] INP/OBS CARE(MOD) FENG BETTENCOURT MD Dec 03, 2024 16:03
--- NOTE | 2024-12-03 16:04 | DVHPN2 ---
Progress Note Date Seen: Dec 03, 2024 Resident Creating Document: ROBLES SWEENEY RESIDENT Medical Necessity Reason Pt with a Central, PICC or Fol: Yes The following are medically ne: Ashraf Catheter Subjective Review of Systems From a GI perspective, the patient the patient failed his swallow evaluation again. He is currently receiving IV nutrition via Clinimix at 41 mL/hr due to inability to tolerate enteral intake. A repeat swallow evaluation is pending. We are starting him on NG tube with Nepro with carb steady at 40 mL. There has been minimal output via the colostomy tube, and no nausea, vomiting, or new abdominal complaints have been reported. Last bowel movement was on 11/26/2024. Currently receiving ceftriaxone for infection control. No abdominal pain or distension noted. Still unable to reliably communicate GI symptoms. Continues on carafate, IV Protonix, and sliding scale insulin. Todays Progress, Relevant Labs, Imaging & Treatment: * Feeds: Ordered an NG tube with Nepro with carb steady at 40 m. (PPN) is infusing at 41 mL/hr . But NG tube was not placed because the nurses tried to place an NG tube but failed twice because the patient was unable to tolerate the placement of NG tube we will try again today. 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 IR consult has been placed for CVC * Bowel Function: Minimal output in colostomy tube * Antibiotics: On ceftriaxone for presumed infection. Objective vital signs Vital Sign Date Time Temp Pulse Resp B/P (MAP) Pulse Ox O2 Delivery O2 Flow Rate FiO2 12/03/24 13:00 98.0 100 18 147/51 (83) 97 98.0 12/03/24 10:00 Nasal Cannula 2.0 12/03/24 10:00 28 Total Intake and Output 12/02/24 12/02/24 12/03/24 15:00 23:00 07:00 Intake Total 50 ml 0 ml 0 ml Output Total 150 ml 200 ml Balance 50 ml -150 ml -200 ml medications Current Medications Medications Dose Ordered Sig/Delfino Route Start Time Stop Time Status Last Admin Dose Admin Amlodipine Besylate 10 mg DAILY PO 11/22/24 10:00 11/25/24 10:19 10 MG Ipratropium [place] 0.5 mg Q6HWA NEB 11/21/24 22:00 12/03/24 11:56 0.5 MG Hydralazine HCl 10 mg Q4HP PRN IV 11/23/24 09:15 12/03/24 09:57 10 MG Pantoprazole Sodium 40 mg BID IV 11/23/24 22:00 12/03/24 09:56 40 MG Sucralfate 1 gm BID PO 11/25/24 22:00 Diagnostic Test (Pha) 1 strip Q6HR 11/25/24 18:00 12/03/24 12:00 1 STRIP Insulin Human Regular FOLLOW SLIDING SCALE Q6HR MD 11/25/24 18:00 12/03/24 12:00 2 UNITS Dextrose 50 ml UD IV 11/25/24 17:15 Ceftriaxone Sodium 50 ml @ 100 mls/hr DAILY@09 IV 11/26/24 09:00 12/03/24 09:09 100 MLS/HR Aspirin 300 mg DAILY FL 11/26/24 16:00 12/02/24 18:01 300 MG Atorvastatin Calcium 40 mg HS PO 11/26/24 22:00 Amiodarone HCl 200 mg Q12HR PO 11/28/24 22:00 Metoprolol Tartrate 1.25 mg Q6HPRN PRN IV 11/28/24 18:30 Amino Acids 0 ml @ 0 mls/hr PER PHARMACY IV 11/30/24 15:15 Epoetin Rolando-epbx 4,000 unit MWF MD 12/01/24 14:00 UNV Epoetin Rolando-epbx 4,000 unit [facility] [place] 12/01/24 14:00 12/03/24 11:25 4,000 UNIT Fat Emulsion Intravenous 100 ml/Sodium Chloride 40 meq/ Potassium Chloride 20 meq/ Multivitamins 10 ml/Chromium/ Copper/Manganese/ Zinc 1 ml/Amino Acids/Dextrose/ Purified Water 1,181 ml @ 49 mls/hr Q24H7M IV 12/02/24 22:00 12/03/24 21:59 12/02/24 22:31 49 MLS/HR Enteral Nutritional Formula 1,000 ml 40ML/HR NG 12/02/24 18:00 Fat Emulsion Intravenous 150 ml/Sodium Chloride 40 meq/ Potassium Chloride 20 meq/ Multivitamins 10 ml/Chromium/ Copper/Manganese/ Zinc 1 ml/Amino Acids/Dextrose/ Purified Water 1,431 ml @ 59 mls/hr [id number] IV 12/03/24 22:00 87/25 21:59 Cancel Fat Emulsion Intravenous 150 ml/Sodium Chloride 40 meq/ Potassium Chloride 20 meq/ Multivitamins 10 ml/Chromium/ Copper/Manganese/ Zinc 1 ml/Amino Acids/Dextrose/ Purified Water 1,431 ml @ 59 mls/hr [id number] IV 12/03/24 22:00 12/04/24 21:59 Examination Abdomen: Soft, non-distended, non-tender, no guarding or rebound * Colostomy Site: Intact, minimal output noted * Bowel sounds: Present * Skin: No signs of dehydration or rash laboratory and microbiology Laboratory Tests 12/03/24 05:44 12/01/24 06:28 Test 12/03/24 05:44 Range/Units Serum Glucose 111 H 74-106 mg/dL Microbiology Date/Time Source Procedure Growth Status 11/25/24 09:23 Urine - Midstream Clean Catch Urine Culture - Final Complete 11/22/24 06:00 Nose MRSA Screen - Final Complete Problem List/Assessment/Plan Problem List/Assessment/Plan Assessment 1. Upper GI bleed with melena resolved; no current bleeding. 2. Gastroduodenitis continue PPI and Carafate. 3. Severe anemia (multifactorial, prior GI loss and CKD) stable post- transfusion. 4. Parastomal hernia stable, no obstruction. 5. Nutritional compromise with failed swallow evaluation requires NG tube placement for enteral feeding and medication delivery. 6. ESRD on HD continue scheduled dialysis. 7. Acute right MCA stroke with dysphagia managed by neurology. 8. Atrial fibrillation (now sinus rhythm on amiodarone) Plan GI/Nutrition: Failed to place an NG tube twice because the patient was unable to tolerate the placement of an NG tube. The nurse told that she will try again today. Start Nepro with carb steady at 40 mL via NG tube. Administer an NG tube. * Continue PPN IV 41 mL/hr * Monitor electrolytes, glucose, liver function, triglycerides. * Plan for repeat swallow evaluation. * If failed again, consider PEG vs long-term NG placement. Stomach Protection: * Continue IV Protonix for stress ulcer prophylaxis. * Continue carafate as indicated. Bowel Function: * Monitor colostomy output and abdominal distension. * Consider rectal exam and/or bowel regimen if no BM in >5 days. Liver Monitoring: * Continue trending LFTs (particularly Alk Phos and GGT if elevated). * Evaluate for TPN-related cholestasis if levels continue to rise. Infection: * Continue ceftriaxone; re-evaluate once clinical picture improves. * GI source unlikely based on current findings. Anticoagulation * Now cleared to start Lovenox (enoxaparin) per anticoagulation protocol. * Monitor CBC and watch for any GI bleeding. Case discussed in detail with the attending physician, including the clinical presentation, diagnostic workup, and comprehensive management plan. Plan discussed with: Other (RN) My Orders My Orders Orders - ROBLES SWEENEY RESIDENT Procedure Category Date Status Time Place Ng ORDERS 12/02/24 Transmitted 17:58 Nutritional PHA 12/02/24 In Process Supplements (Nepro 18:00 Dietary Evaluation Review Comments: 1) Nepro Carbsteady 240ml TID 2) Consider renal standard diet 3) Monitor PO intake, lab values, weight trend, and I/O Expected Outcomes/Goals: To meet >75% estimated needs lab values to improve Fu 3-5 days CC Plasma Assessment Blood Product Administration S: [id number] ROBLES SWEENEY RESIDENT Dec 03, 2024 16:04
--- NOTE | 2024-12-03 18:08 | DVH ---
Technique: Real-time ultrasound imaging of the posterior head region of interest using grayscale and color flow imaging. Indication: Lump on the back of the head Comparison: MRI BRAIN HEAD WO CONTRAST on DOS: 11/26/24, US CAROTID DUPLX W COLOR DOP on DOS: 11/26/24, CT HEAD WITHOUT CONTRAST on DOS: 11/26/24 Findings: There is an echogenic lesion corresponding to the occipital scalp lesion seen on the previous imaging measuring at least 7.3 x 8.7 cm. No definitive internal vascularity seen on the provided images. T he lesion extends up to the skull surface. There is some through transmission from the lesion which c ould suggest component of fluid. Recommend surgical/ dermatology consultation for further evaluation . Impression: As above
--- NOTE | 2024-12-03 18:49 | DVHPN2 ---
Progress Note Date Seen: Dec 03, 2024 Medical Necessity Reason Pt with a Central, PICC or Fol: Yes The following are medically ne: Ashraf Catheter Subjective Patient reports: No new complaints Review of Systems: Deferred Objective vital signs Vital Sign Date Time Temp Pulse Resp B/P (MAP) Pulse Ox O2 Delivery O2 Flow Rate FiO2 12/03/24 17:54 94 Nasal Cannula 3.0 12/03/24 17:54 32 12/03/24 17:54 101 18 12/03/24 13:00 98.0 147/51 (83) 98.0 Total Intake and Output 12/02/24 12/02/24 12/03/24 15:00 23:00 07:00 Intake Total 50 ml 0 ml 0 ml Output Total 150 ml 200 ml Balance 50 ml -150 ml -200 ml medications Current Medications Medications Dose Ordered Sig/Delfino Route Start Time Stop Time Status Last Admin Dose Admin Amlodipine Besylate 10 mg DAILY PO 11/22/24 10:00 11/25/24 10:19 10 MG Ipratropium [place] 0.5 mg Q6HWA NEB 11/21/24 22:00 12/03/24 17:54 0.5 MG Hydralazine HCl 10 mg Q4HP PRN IV 11/23/24 09:15 12/03/24 09:57 10 MG Pantoprazole Sodium 40 mg BID IV 11/23/24 22:00 12/03/24 09:56 40 MG Sucralfate 1 gm BID PO 11/25/24 22:00 Diagnostic Test (Pha) 1 strip Q6HR 11/25/24 18:00 12/03/24 17:40 1 STRIP Insulin Human Regular FOLLOW SLIDING SCALE Q6HR SC 11/25/24 18:00 12/03/24 12:00 2 UNITS Dextrose 50 ml UD IV 11/25/24 17:15 Ceftriaxone Sodium 50 ml @ 100 mls/hr DAILY@09 IV 11/26/24 09:00 12/03/24 09:09 100 MLS/HR Aspirin 300 mg DAILY RI 11/26/24 16:00 12/02/24 18:01 300 MG Atorvastatin Calcium 40 mg HS PO 11/26/24 22:00 Amiodarone HCl 200 mg Q12HR PO 11/28/24 22:00 Metoprolol Tartrate 1.25 mg Q6HPRN PRN IV 11/28/24 18:30 Amino Acids 0 ml @ 0 mls/hr PER PHARMACY IV 11/30/24 15:15 Epoetin Rolando-epbx 4,000 unit MWF ND 12/01/24 14:00 UNV Epoetin Rolando-epbx 4,000 unit MWF ND 12/01/24 14:00 12/03/24 11:25 4,000 UNIT Fat Emulsion Intravenous 100 ml/Sodium Chloride 40 meq/ Potassium Chloride 20 meq/ Multivitamins 10 ml/Chromium/ Copper/Manganese/ Zinc 1 ml/Amino Acids/Dextrose/ Purified Water 1,181 ml @ 49 mls/hr Q24H7M IV 12/02/24 22:00 12/03/24 21:59 12/02/24 22:31 49 MLS/HR Enteral Nutritional Formula 1,000 ml 40ML/HR NG 12/02/24 18:00 Fat Emulsion Intravenous 150 ml/Sodium Chloride 40 meq/ Potassium Chloride 20 meq/ Multivitamins 10 ml/Chromium/ Copper/Manganese/ Zinc 1 ml/Amino Acids/Dextrose/ Purified Water 1,431 ml @ 59 mls/hr [id number] IV 12/03/24 22:00 12/04/24 21:59 Cancel Fat Emulsion Intravenous 150 ml/Sodium Chloride 40 meq/ Potassium Chloride 20 meq/ Multivitamins 10 ml/Chromium/ Copper/Manganese/ Zinc 1 ml/Amino Acids/Dextrose/ Purified Water 1,431 ml @ 59 mls/hr [id number] IV 12/03/24 22:00 12/04/24 21:59 laboratory and microbiology Laboratory Tests 12/03/24 05:44 12/01/24 06:28 Test 12/03/24 05:44 Range/Units Serum Glucose 111 H 74-106 mg/dL Microbiology Date/Time Source Procedure Growth Status 11/25/24 09:23 Urine - Midstream Clean Catch Urine Culture - Final Complete 11/22/24 06:00 Nose MRSA Screen - Final Complete Problem List/Assessment/Plan Problem List/Assessment/Plan 1. ESRD on HD- 2. HTN 3. hx of COPD 4. Anemia s/p PRBC transfusion CVA fronto parietal recs HD 12/04 Plan discussed with: Other Dietary Evaluation Review Comments: 1) Nepro Carbsteady 240ml TID 2) Consider renal standard diet 3) Monitor PO intake, lab values, weight trend, and I/O Expected Outcomes/Goals: To meet >75% estimated needs lab values to improve Fu 3-5 days CC Plasma Assessment Blood Product Administration S: [id number] GERMAN WATERMAN MD Dec 03, 2024 18:49
--- NOTE | 2024-12-03 21:46 | DVHPN2 ---
Progress Note - Dictate Date Seen: Dec 03, 2024 Medical Necessity Reason Pt with a Central, PICC or Fol: Yes The following are medically ne: Ashraf Catheter Subjective Mr. Akbar is a 78 years old gentleman with a history of hypertension, dyslipidemia, COPD, end-stage kidney failure on hemodialysis, colon cancer status post colostomy, he was brought to the [facility] [place] on 11/21/2024 with a chief company of general weakness and dark stool. I have seen and examined the patient, I have talked to his nurse sitter, he is awake, he tracks, he mumble words, not able to answer questions. he may only oriented to himself Stool occult blood, 11/21/2024: Positive Urinalysis, 11/23/2024: UTI UDS, 11/23/2024: Negative WBC/HB/PLT/MCV, 11/21/2024: 12.3/5.8/267/94.5, 11/25/2024: 11.8/9.9/275/93.6 PT/INR/PTT, 11/21/2024: 13/1.25/41.6 BUN/CR, 11/26/2024: 53/6.41 HGB A1c, 11/21/2024: <3.8 TG/HDL/LDL/HDL, 11/27/2024: 203/156/93/21 Vitamin B12, 11/21/2024: 452 TSH, 11/21/2024: 2.27 EKG, 10/3124: AFib Carotid Doppler, 11/26/2024: 1. No hemodynamically significant stenosis noted in the right carotid system. Approximately 50-69 % focal stenosis in the mid right internal carotid artery. 2. No hemodynamically significant stenosis noted in the left carotid system. 3. The vertebral arteries were not visualized. Echocardiogram, 11/27/2024: Sinus rhythm. Concentric LVH with left atrial enlargement and aortic root enlargement. Dilation of the sinuses of Valsalva. Moderate mitral annular calcification of the base of the posterior mitral leaflet. The aortic and tricuspid appear to be structurally normal. Left ventricular systolic performance appears to be preserved. EF is about 55%. There is impaired diastolic relaxation. Normal RV function. There is mild aortic insufficiency. Mild tricuspid regurgitation. No pericardial effusion masses or vegetations. CT head, 11/09/2024: Acute to subacute infarction of the right frontoparietal lobe with thrombus in the right middle cerebral artery M2 segment. Recommend neurology consultation. Moderate chronic microvascular ischemic changes. MRI head, 11/26/2024: Acute infarction right middle cerebral artery distribution involving the right frontal and parietal lobes. Findings consistent with right M2 middle cerebral artery segment occlusion/thrombosis. Moderate chronic microvascular ischemic changes. EGD, 11/25/2024: 1. Minimal gastroduodenitis 2. Otherwise normal examination up to the 2nd and 3rd part of the duodenal with no fresh or old blood in the upper GI tract vital signs Vital Sign Date Time Temp Pulse Resp B/P (MAP) Pulse Ox O2 Delivery O2 Flow Rate FiO2 12/03/24 21:00 99.5 111 18 149/46 (80) 99 99.5 12/03/24 17:54 Nasal Cannula* 3 32 Total Intake and Output 12/02/24 12/02/24 12/03/24 15:00 23:00 07:00 Intake Total 50 ml 0 ml 0 ml Output Total 150 ml 200 ml Balance 50 ml -150 ml -200 ml medications Current Medications Medications Dose Ordered Sig/Delfino Route Start Time Stop Time Status Last Admin Dose Admin Amlodipine Besylate 10 mg DAILY PO 11/22/24 10:00 11/25/24 10:19 10 MG Ipratropium [place] 0.5 mg Q6HWA NEB 11/21/24 22:00 12/03/24 17:54 0.5 MG Hydralazine HCl 10 mg Q4HP PRN IV 11/23/24 09:15 12/03/24 09:57 10 MG Pantoprazole Sodium 40 mg BID IV 11/23/24 22:00 12/03/24 09:56 40 MG Sucralfate 1 gm BID PO 11/25/24 22:00 Diagnostic Test (Pha) 1 strip Q6HR 11/25/24 18:00 12/03/24 17:40 1 STRIP Insulin Human Regular FOLLOW SLIDING SCALE Q6HR SC 11/25/24 18:00 12/03/24 12:00 2 UNITS Dextrose 50 ml UD IV 11/25/24 17:15 Ceftriaxone Sodium 50 ml @ 100 mls/hr DAILY@09 IV 11/26/24 09:00 12/03/24 09:09 100 MLS/HR Aspirin 300 mg DAILY FL 11/26/24 16:00 8/5/25 18:01 300 MG Atorvastatin Calcium 40 mg HS PO 11/26/24 22:00 Amiodarone HCl 200 mg Q12HR PO 11/28/24 22:00 Metoprolol Tartrate 1.25 mg Q6HPRN PRN IV 11/28/24 18:30 Amino Acids 0 ml @ 0 mls/hr PER PHARMACY IV 11/30/24 15:15 Epoetin Rolando-epbx 4,000 unit MWF MD 12/01/24 14:00 UNV Epoetin Rolando-epbx 4,000 unit MWF MD 12/01/24 14:00 12/03/24 11:25 4,000 UNIT Fat Emulsion Intravenous 100 ml/Sodium Chloride 40 meq/ Potassium Chloride 20 meq/ Multivitamins 10 ml/Chromium/ Copper/Manganese/ Zinc 1 ml/Amino Acids/Dextrose/ Purified Water 1,181 ml @ 49 mls/hr Q24H7M IV 12/02/24 22:00 12/03/24 21:59 12/02/24 22:31 49 MLS/HR Enteral Nutritional Formula 1,000 ml 40ML/HR NG 12/02/24 18:00 Fat Emulsion Intravenous 150 ml/Sodium Chloride 40 meq/ Potassium Chloride 20 meq/ Multivitamins 10 ml/Chromium/ Copper/Manganese/ Zinc 1 ml/Amino Acids/Dextrose/ Purified Water 1,431 ml @ 59 mls/hr [id number] IV 12/03/24 22:00 12/04/24 21:59 Cancel Fat Emulsion Intravenous 150 ml/Sodium Chloride 40 meq/ Potassium Chloride 20 meq/ Multivitamins 10 ml/Chromium/ Copper/Manganese/ Zinc 1 ml/Amino Acids/Dextrose/ Purified Water 1,431 ml @ 59 mls/hr [id number] IV 12/03/24 22:00 12/04/24 21:59 objective General: the patient is well developed and nourished. No acute distress. MENTAL STATUS: Subjective SPEECH, LANGUAGE, HIGHER CORTICAL FUNCTION: Subjective CRANIAL NERVES: He might have left hemianopsia. Pupils are equal, round and reactive. EOMs full and conjugate. Facial sensation intact in all three divisions bilaterally. Mandibular strength intact. Facial muscles symmetrical and strength intact. SENSATION: Sensation to touch and pinprick is unremarkable MOTOR: Normal tone in the upper and lower extremity. Normal muscle bulk. No fasciculations. No abnormal movements or posturing. He moves the right, questionable movement in the left leg, he does not move the left arm REFLEXES: Deep tendon reflexes are symmetrical. Upgoing toes in the left foot CEREBELLAR/COORDINATION: Deferred GAIT/STATION: deferred laboratory and microbiology Laboratory Tests 12/03/24 05:44 12/01/24 06:28 Test 12/03/24 05:44 Range/Units Serum Glucose 111 H 74-106 mg/dL Problem List Acute right MCA territory stroke with acute left hemiparesis Atrial fibrillation Altered mental status Secondary to acute stroke Metabolic encephalopathy Rule out seizure activity End-stage kidney failure Acute neck pain, etiology unclear Mass GI bleeding status post RBC transfusion History of colon cancer Gait disturbance, maybe secondary to drug effects Assessment/Plan Monitoring Supportive treatment Aspirin [place] 300 mg daily Lipitor 40 mg daily Carafate 1 g b.i.d. Protonix 40 mg b.i.d. Nephrology on case/hemodialysis GI specialist on case More recommendation per clinical course This medical document was created using an electronic medical record system with [employer] dictation system. Although this document has been carefully reviewed, there may still be some phonetic and typographical errors. These areas are purely typographical due to imperfections of the software programs, and do not reflect any compromise in the patient's medical care. Prognosis poor Dietary Evaluation Review Comments: 1) Nepro Carbsteady 240ml TID 2) Consider renal standard diet 3) Monitor PO intake, lab values, weight trend, and I/O Expected Outcomes/Goals: To meet >75% estimated needs lab values to improve Fu 3-5 days Plan discussed with: Other CC Plasma Assessment Blood Product Administration S: [id number] PATSY SALGADO MD Dec 03, 2024 21:46
[2024-12-03] MEDS ORDERED: TPN PER PHARMACY IV NR (22:00)
[2024-12-03] MEDS: PPN PER PHARMACY IV NR (22:34)
[2024-12-04] VITALS (17 sets, daily range): BP systolic 123–150; BP diastolic 50–76; PULSE 76–111; RESP 18–26; TEMP 97.7–99.4; O2SAT 94–100
[2024-12-04 07:52] LABS: Hematocrit 24.7 % (41.0-53.0); Hemoglobin 8.3 g/dL (13.5-17.5); Mean Corpuscular Hemoglobin 29.5 pg (28.0-32.0); Mean Corpuscular Volume 87.5 fL (80.0-100.0); Nucleated Red Blood Cells % 0.0 %
[2024-12-04 08:13] LABS: Alanine Aminotransferase 39 U/L (7-40); Albumin 3.6 g/dL (3.2-4.8); Anion Gap 15 (5-15); BUN/Creatinine Ratio 12.9 (10.0-20.0); Calcium 9.0 mg/dL (8.7-10.4); Carbon Dioxide 21 mmol/L (20-31); Chloride 99 mmol/L (98-107); Magnesium 2.0 mg/dL (1.6-2.6); Potassium 3.8 mmol/L (3.5-5.1); Total Protein 6.3 g/dL (5.7-8.2)
[2024-12-04 08:14] LABS: Bilirubin, Total 0.5 mg/dL (0.2-1.0)
[2024-12-04 08:16] LABS: Alkaline Phosphatase 175 U/L (46-116); Glucose 124 mg/dL (74-106); Sodium 135 mmol/L (136-145)
[2024-12-04 08:17] LABS: Blood Urea Nitrogen 92 mg/dL (9-23)
--- NOTE | 2024-12-04 14:39 | DVHPN2 ---
Progress Note Date Seen: Dec 04, 2024 Resident Creating Document: ROBLES SWEENEY RESIDENT Medical Necessity Reason Pt with a Central, PICC or Fol: Yes The following are medically ne: Ashraf Catheter Subjective Review of Systems This is a 79-year-old male with extensive comorbidities including: * Colon cancer s/p partial colectomy, now in remission * ESRD on hemodialysis (baseline Cr ~7.1, BUN 92) * Acute ischemic stroke with aphasia and non-verbal status (Dx: MCA territory infarct) * Failed multiple swallow evaluations ? high aspiration risk * Failed NG tube placement due to intolerance * Malnutrition and ongoing nutritional dependence via PPN * Now scheduled for PEG tube placement tomorrow following family approval Todays Saeed Updates: * PEG consent obtained from family procedure scheduled for tomorrow * Patient continues NPO, tolerating PPN * Failed swallow eval again; feeding intolerance persists * Hemodynamically stable on 2L NC * No new GI complaints (no emesis, bleeding, or distension) * Posterior scalp mass noted on exam; ultrasound shows echogenic lesion (7.3 x 8.7 cm), no internal vascularity, fluid component suspected; recommendation: surgical/dermatologic evaluation * Colostomy output minimal, no signs of obstruction * Hemoglobin downtrended from 9.1 ? 8.3 g/dL, stable today * LFTs trending down (AST 57, ALP 175) * Vascular access imaging reveals left AVF likely thrombosed, right AVF shows elevated brachial artery velocity concerning for stenosis * Disposition pending: Possible SNF or hospice * Anticoagulation held due to PEG planning and procedural risk Objective vital signs Vital Sign Date Time Temp Pulse Resp B/P (MAP) Pulse Ox O2 Delivery O2 Flow Rate FiO2 12/04/24 13:00 98.9 104 21 150/62 (91) 95 98.9 12/04/24 07:55 Nasal Cannula* 2 28 Total Intake and Output 12/03/24 12/03/24 12/04/24 15:00 23:00 07:00 Intake Total 638 ml Output Total 350 ml Balance 288 ml medications Current Medications Medications Dose Ordered Sig/Delfino Route Start Time Stop Time Status Last Admin Dose Admin Amlodipine Besylate 10 mg DAILY PO 11/22/24 10:00 11/25/24 10:19 10 MG Ipratropium [place] 0.5 mg Q6HWA NEB 11/21/24 22:00 12/04/24 12:39 0.5 MG Hydralazine HCl 10 mg Q4HP PRN IV 11/23/24 09:15 12/03/24 09:57 10 MG Pantoprazole Sodium 40 mg BID IV 11/23/24 22:00 12/04/24 11:46 40 MG Sucralfate 1 gm BID PO 11/25/24 22:00 Diagnostic Test (Pha) 1 strip Q6HR 11/25/24 18:00 12/04/24 11:46 1 STRIP Insulin Human Regular FOLLOW SLIDING SCALE Q6HR ID 11/25/24 18:00 12/04/24 11:48 2 UNITS Dextrose 50 ml UD IV 11/25/24 17:15 Ceftriaxone Sodium 50 ml @ 100 mls/hr DAILY@09 IV 11/26/24 09:00 12/04/24 11:46 100 MLS/HR Aspirin 300 mg DAILY DC 11/26/24 16:00 12/02/24 18:01 300 MG Atorvastatin Calcium 40 mg HS PO 11/26/24 22:00 Amiodarone HCl 200 mg Q12HR PO 11/28/24 22:00 Metoprolol Tartrate 1.25 mg Q6HPRN PRN IV 11/28/24 18:30 Amino Acids 0 ml @ 0 mls/hr PER PHARMACY IV 11/30/24 15:15 Epoetin Rolando-epbx 4,000 unit F ID 12/01/24 14:00 UNV Epoetin Rolando-epbx 4,[address] [facility] 12/01/24 14:00 12/03/24 11:25 4,000 UNIT Enteral Nutritional Formula 1,000 ml 40ML/HR NG 12/02/24 18:00 Fat Emulsion Intravenous 150 ml/Sodium Chloride 40 meq/ Potassium Chloride 20 meq/ Multivitamins 10 ml/Chromium/ Copper/Manganese/ Zinc 1 ml/Amino Acids/Dextrose/ Purified Water 1,431 ml @ 59 mls/hr [id number] IV 12/03/24 22:00 12/04/24 21:59 Cancel Fat Emulsion Intravenous 150 ml/Sodium Chloride 40 meq/ Potassium Chloride 20 meq/ Multivitamins 10 ml/Chromium/ Copper/Manganese/ Zinc 1 ml/Amino Acids/Dextrose/ Purified Water 1,431 ml @ 59 mls/hr [id number] IV 12/03/24 22:00 12/04/24 21:59 12/03/24 22:34 59 MLS/HR Fat Emulsion Intravenous 100 ml/Sodium Chloride 20 meq/ Sodium Acetate 40 meq/Potassium Chloride 20 meq/ Potassium Acetate 20 meq/Magnesium Sulfate 4 meq/ Multivitamins 10 ml/Chromium/ Copper/Manganese/ Zinc 1 ml/Amino Acids/Dextrose/ Purified Water 1,757 ml @ 73 mls/hr Q24H5M IV 12/04/24 22:00 12/05/24 21:59 Examination * Abdomen: Soft, non-tender, non-distended * Colostomy: Present, minimal output, no surrounding skin breakdown * NG tube: Not present; patient failed placement attempt * PEG tube: Not yet placed; scheduled for tomorrow * No signs of peritonitis or active GI bleeding laboratory and microbiology Laboratory Tests 12/04/24 07:18 Test 12/04/24 07:18 Range/Units Serum Glucose 124 H 74-106 mg/dL Microbiology Date/Time Source Procedure Growth Status 11/25/24 09:23 Urine - Midstream Clean Catch Urine Culture - Final Complete 11/22/24 06:00 Nose MRSA Screen - Final Complete Problem List/Assessment/Plan Problem List/Assessment/Plan Assessment 1. Upper GI bleed with melena resolved; no current bleeding. 2. Gastroduodenitis continue PPI and Carafate. 3. Severe anemia (multifactorial, prior GI loss and CKD) stable post- transfusion. 4. Parastomal hernia stable, no obstruction. 6. ESRD on HD continue scheduled dialysis. 7. Acute right MCA stroke with dysphagia managed by neurology. 8. Atrial fibrillation (now sinus rhythm on amiodarone) 9. Severe Protein-Calorie Malnutrition * Due to inability to tolerate oral/enteral nutrition, failed NG placement, failed swallow evaluation * Currently on parenteral nutrition via Clinimix * PEG placement scheduled 10. Dysphagia and Feeding Intolerance * Due to post-stroke aphasia and poor gag/swallow reflex * Failed repeat swallow evaluation * Requires PEG for long-term feeding 11.4. Elevated Liver Enzymes * AST: 57, ALP: 175 * Downtrending * Likely secondary to TPN, hepatic congestion, or ESRD * Continue to monitor LFTs Plan Gastrointestinal / Nutrition * Continue PPN * Maintain NPO status * PEG tube scheduled for tomorrow * Monitor abdominal exam, colostomy output * Monitor LFTs and electrolytes daily Hematology * Monitor CBC daily * No current signs of bleeding * Hold anticoagulation until post-PEG placement * Maintain transfusion threshold Hgb <7 unless symptomatic Neurologic * Aphasia and non-verbal state post-stroke * High aspiration risk. PEG feeding * Continue supportive care, neuro re-eval not indicated unless mental status changes Dermatology / Surgery * Posterior occipital scalp mass echogenic, possible fluid * Surgical or dermatology consult needed Infectious Disease / Antibiotics * Continue ceftriaxone pending ID re-evaluation * MRSA/urine/blood cultures negative Disposition * Awaiting PEG placement * SNF vs hospice under discussion * Family and PCP engaged in shared decision-making Case discussed in detail with the attending physician, including the clinical presentation, diagnostic workup, and comprehensive management plan. Plan discussed with: Daughter Dietary Evaluation Review Comments: 1) Nepro Carbsteady 240ml TID 2) Consider renal standard diet 3) Monitor PO intake, lab values, weight trend, and I/O Expected Outcomes/Goals: To meet >75% estimated needs lab values to improve Fu 3-5 days CC Plasma Assessment Blood Product Administration S: [id number] ROBLES SWEENEY RESIDENT Dec 04, 2024 14:39
--- NOTE | 2024-12-04 17:23 | DVHPN2 ---
Progress Note Date Seen: Dec 04, 2024 Medical Necessity Reason Pt with a Central, PICC or Fol: Yes The following are medically ne: Ashraf Catheter Subjective Review of Systems: Deferred Objective vital signs Vital Sign Date Time Temp Pulse Resp B/P (MAP) Pulse Ox O2 Delivery O2 Flow Rate FiO2 12/04/24 13:00 98.9 104 21 150/62 (91) 95 98.9 12/04/24 10:00 Nasal Cannula* 3 32 Total Intake and Output 12/03/24 12/03/24 12/04/24 15:00 23:00 07:00 Intake Total 638 ml Output Total 350 ml Balance 288 ml medications Current Medications Medications Dose Ordered Sig/Delfino Route Start Time Stop Time Status Last Admin Dose Admin Amlodipine Besylate 10 mg DAILY PO 11/22/24 10:00 11/25/24 10:19 10 MG Ipratropium [place] 0.5 mg Q6HWA NEB 11/21/24 22:00 12/04/24 12:39 0.5 MG Hydralazine HCl 10 mg Q4HP PRN IV 11/23/24 09:15 12/03/24 09:57 10 MG Pantoprazole Sodium 40 mg BID IV 11/23/24 22:00 12/04/24 11:46 40 MG Sucralfate 1 gm BID PO 11/25/24 22:00 Diagnostic Test (Pha) 1 strip Q6HR 11/25/24 18:00 12/04/24 16:56 1 STRIP Insulin Human Regular FOLLOW SLIDING SCALE Q6HR SC 11/25/24 18:00 12/04/24 11:48 2 UNITS Dextrose 50 ml UD IV 11/25/24 17:15 Ceftriaxone Sodium 50 ml @ 100 mls/hr DAILY@09 IV 11/26/24 09:00 12/04/24 11:46 100 MLS/HR Atorvastatin Calcium 40 mg HS PO 11/26/24 22:00 Amiodarone HCl 200 mg Q12HR PO 11/28/24 22:00 Metoprolol Tartrate 1.25 mg Q6HPRN PRN IV 11/28/24 18:30 Amino Acids 0 ml @ 0 mls/hr PER PHARMACY IV 11/30/24 15:15 Epoetin Rolando-epbx 4,000 unit MWF [place] 12/01/24 14:00 UNV Epoetin Rolando-epbx 4,000 unit MWF [place] 12/01/24 14:00 12/03/24 11:25 4,000 UNIT Enteral Nutritional Formula 1,000 ml 40ML/HR NG 12/02/24 18:00 Fat Emulsion Intravenous 150 ml/Sodium Chloride 40 meq/ Potassium Chloride 20 meq/ Multivitamins 10 ml/Chromium/ Copper/Manganese/ Zinc 1 ml/Amino Acids/Dextrose/ Purified Water 1,431 ml @ 59 mls/hr [id number] IV 12/03/24 22:00 12/04/24 21:59 Cancel Fat Emulsion Intravenous 150 ml/Sodium Chloride 40 meq/ Potassium Chloride 20 meq/ Multivitamins 10 ml/Chromium/ Copper/Manganese/ Zinc 1 ml/Amino Acids/Dextrose/ Purified Water 1,431 ml @ 59 mls/hr [id number] IV 12/03/24 22:00 12/04/24 21:59 12/03/24 22:34 59 MLS/HR Fat Emulsion Intravenous 100 ml/Sodium Chloride 20 meq/ Sodium Acetate 40 meq/Potassium Chloride 20 meq/ Potassium Acetate 20 meq/Magnesium Sulfate 4 meq/ Multivitamins 10 ml/Chromium/ Copper/Manganese/ Zinc 1 ml/Amino Acids/Dextrose/ Purified Water 1,757 ml @ 73 mls/hr Q24H5M IV 12/04/24 22:00 12/05/24 21:59 Examination: GENERAL:Abnormal, CVS:Normal, NEURO:Abnormal laboratory and microbiology Laboratory Tests 12/04/24 07:18 Test 12/04/24 07:18 Range/Units Serum Glucose 124 H 74-106 mg/dL Microbiology Date/Time Source Procedure Growth Status 11/25/24 09:23 Urine - Midstream Clean Catch Urine Culture - Final Complete 11/22/24 06:00 Nose MRSA Screen - Final Complete Problem List/Assessment/Plan Problem List/Assessment/Plan Admitted for acute CVA ESRD on HD HTN hx of COPD Anemia CVA fronto parietal metabolic acidosis HD today pending PEG Strict I&Os Blood pressure control epogen 3x a week tube feeding nutrition as per primary team Plan discussed with: Other My Orders My Orders Orders - TERESA REYNOLDS MD Procedure Category Date Status Time Hemodialysis Orders ORDERS 12/04/24 Transmitted 12:30 Dietary Evaluation Review Comments: 1) Nepro Carbsteady 240ml TID 2) Consider renal standard diet 3) Monitor PO intake, lab values, weight trend, and I/O Expected Outcomes/Goals: To meet >75% estimated needs lab values to improve Fu 3-5 days Total Time (mins): 25 CC Plasma Assessment Blood Product Administration S: [id number] TERESA REYNOLDS MD Dec 04, 2024 17:23
[2024-12-04] MEDS: ceFAZolin 1GM/50ML 50 ML IV ONE (19:30)
--- NOTE | 2024-12-04 20:29 | DVHPN2 ---
Subjective Patient's remains clinically stable. However unable to swallow on his own therefore remains NPO on TPN. Still remains very weak and mostly in bed. Changes from previous H/P or p: No Changes Objective Vitals Vital Signs Date Time Temp Pulse Resp B/P (MAP) Pulse Ox O2 Delivery O2 Flow Rate FiO2 12/04/24 19:02 111 18 96 12/04/24 18:57 Nasal Cannula 3.0 12/04/24 18:57 32 12/04/24 17:00 97.7 123/54 (77) 97.7 Intake/Output Intake and Output 12/04/24 07:00 Intake Total 638 ml Output Total 350 ml Balance 288 ml Intake Oral 0 ml IV Total 638 ml Output Urine Total 350 ml Exam Alert and awake without any acute distress. Comfortable in bed. HEENT pupils equal round react to light. Neck supple no JVD. Heart regular rate and rhythm S1-S2. Lungs fair air movement poor inspiratory effort. No wheezing. Abdomen soft positive bowel sounds nontender. Extremities no significant edema noted positive pulses Medications Current Medications Medications Dose Ordered Sig/Delfino Route Start Time Stop Time Status Last Admin Dose Admin Amlodipine Besylate 10 mg DAILY PO 11/22/24 10:00 11/25/24 10:19 10 MG Ipratropium [place] 0.5 mg Q6HWA NEB 11/21/24 22:00 12/04/24 18:57 0.5 MG Hydralazine HCl 10 mg Q4HP PRN IV 11/23/24 09:15 12/03/24 09:57 10 MG Pantoprazole Sodium 40 mg BID IV 11/23/24 22:00 12/04/24 11:46 40 MG Sucralfate 1 gm BID PO 11/25/24 22:00 Diagnostic Test (Pha) 1 strip Q6HR 11/25/24 18:00 12/04/24 16:56 1 STRIP Insulin Human Regular FOLLOW SLIDING SCALE Q6HR SC 11/25/24 18:00 12/04/24 17:31 4 UNITS Dextrose 50 ml UD IV 11/25/24 17:15 Ceftriaxone Sodium 50 ml @ 100 mls/hr DAILY@09 IV 11/26/24 09:00 12/04/24 11:46 100 MLS/HR Atorvastatin Calcium 40 mg HS PO 11/26/24 22:00 Amiodarone HCl 200 mg Q12HR PO 11/28/24 22:00 Metoprolol Tartrate 1.25 mg Q6HPRN PRN IV 11/28/24 18:30 Amino Acids 0 ml @ 0 mls/hr PER PHARMACY IV 11/30/24 15:15 Epoetin Rolando-epbx 4,000 unit MWF [place] 12/01/24 14:00 UNV Epoetin Rolando-epbx 4,000 unit MWF [place] 12/01/24 14:00 12/03/24 11:25 4,000 UNIT Enteral Nutritional Formula 1,000 ml 40ML/HR NG 12/02/24 18:00 Fat Emulsion Intravenous 150 ml/Sodium Chloride 40 meq/ Potassium Chloride 20 meq/ Multivitamins 10 ml/Chromium/ Copper/Manganese/ Zinc 1 ml/Amino Acids/Dextrose/ Purified Water 1,431 ml @ 59 mls/hr [id number] IV 12/03/24 22:00 12/04/24 21:59 Cancel Fat Emulsion Intravenous 150 ml/Sodium Chloride 40 meq/ Potassium Chloride 20 meq/ Multivitamins 10 ml/Chromium/ Copper/Manganese/ Zinc 1 ml/Amino Acids/Dextrose/ Purified Water 1,431 ml @ 59 mls/hr [id number] IV 12/03/24 22:00 12/04/24 21:59 12/03/24 22:34 59 MLS/HR Fat Emulsion Intravenous 100 ml/Sodium Chloride 20 meq/ Sodium Acetate 40 meq/Potassium Chloride 20 meq/ Potassium Acetate 20 meq/Magnesium Sulfate 4 meq/ Multivitamins 10 ml/Chromium/ Copper/Manganese/ Zinc 1 ml/Amino Acids/Dextrose/ Purified Water 1,757 ml @ 73 mls/hr Q24H5M IV 12/04/24 22:00 12/05/24 21:59 Laboratory Results Laboratory Tests 12/04/24 07:18 Chemistry Test 12/04/24 07:18 Albumin 3.6 g/dL (3.2-4.8) Calcium Level 9.0 mg/dL (8.7-10.4) Magnesium Level 2.0 mg/dL (1.6-2.6) Phosphorus Level 3.6 mg/dL (2.4-5.1) Total Protein 6.3 g/dL (5.7-8.2) Lipid panel Test 12/04/24 07:18 Triglycerides Level 249 mg/dL (< 150) H LFT Test 12/04/24 07:18 Alanine Aminotransferase (ALT) 39 U/L (7-40) Alkaline Phosphatase 175 U/L (46-116) H Aspartate Amino Transferase (AST) 57 U/L (13-40) H Total Bilirubin 0.5 mg/dL (0.2-1.0) Urinalysis Test 11/23/24 05:50 11/25/24 09:23 Urine Amorphous Crystals Few /hpf (None Seen) Urine Color Light-brown (Yellow) Urine Clarity Turbid (Clear) H Urine pH 8.5 (5.0-9.0) Urine Specific [place] 1.011 (1.001-1.035) Urine Protein 3+ (Negative) H Urine Ketones Trace (Negative) Urine Blood 3+ /uL (Negative) H Urine Nitrite Negative (Negative) Urine Bilirubin Negative (Negative) Urine Urobilinogen Normal mg/dL (Negative) Urine Leukocyte Esterase 3+ /uL (Negative) Urine RBC 2271 /hpf (0 - 3) Urine WBC Clumps Present /hpf (None Seen) Urine Microscopic WBC 312 /HPF (0-3) H Urine Squamous Epithelial Cells None seen /hpf (<5) Urine Bacteria None seen /hpf (None Seen) Urine Glucose Trace mg/dL (Normal) Microbiology Microbiology Date/Time Source Procedure Growth Status 11/25/24 09:23 Urine - Midstream Clean Catch Urine Culture - Final Complete 11/22/24 06:00 Nose MRSA Screen - Final Complete Assessment/Plan Assessment/Plan 1. Acute/subacute right MCA with left-sided hemiplegia 2. Acute delirium/acute encephalopathy suspect secondary to acute CVA 3.Melanotic stools rule out upper GI bleed, status post EGD showed gastro duodenitis 4. History of colon cancer status post partial colectomy status post chemotherapy, status post colostomy 5. End-stage renal disease on hemodialysis 6.. Hypertension 7. COPD 8. Failed swallow evaluation Overall his condition remains guarded with a poor prognosis. Given patient failed swallow eval he probably would benefit from PEG tube. We will therefore we will reconsult GI to consider PEG tube if possible. Meantime continue TPN. Further clinical management per clinical course and recommendations from the consultants. Plan discussed with: Patient, Other My Orders Orders - FENG BETTENCOURT MD Procedure Category Date Status Time Communication Order ORDERS 12/04/24 Transmitted 11:17 Date of Service: Dec 04, 2024 Billing Provider: FENG BETTENCOURT MD Common Visit Codes: [id number] INP/OBS CARE(MOD) FENG BETTENCOURT MD Dec 04, 2024 20:29
[2024-12-04] MEDS: PPN PER PHARMACY IV NR (22:40)
--- NOTE | 2024-12-04 23:54 | DVHPN2 ---
Progress Note - Dictate Date Seen: Dec 04, 2024 Medical Necessity Reason Pt with a Central, PICC or Fol: Yes The following are medically ne: Ashraf Catheter Subjective Mr. Akbar is a 78 years old gentleman with a history of hypertension, dyslipidemia, COPD, end-stage kidney failure on hemodialysis, colon cancer status post colostomy, he was brought to the [facility] on 11/21/2024 with a chief company of general weakness and dark stool. I have seen and examined the patient along with nurse and other medical staff, he has respiratory is shallow, but pulse ox reading is fine, he is mildly responsive to verbal commands. He moves the right arm than leg Stool occult blood, 11/21/2024: Positive Urinalysis, 11/23/2024: UTI UDS, 11/23/2024: Negative WBC/HB/PLT/MCV, 11/21/2024: 12.3/5.8/267/94.5, 11/25/2024: 11.8/9.9/275/93.6 PT/INR/PTT, 11/21/2024: 13/1.25/41.6 BUN/CR, 11/26/2024: 53/6.41 HGB A1c, 11/21/2024: <3.8 TG/HDL/LDL/HDL, 11/27/2024: 203/156/93/21 Vitamin B12, 11/21/2024: 452 TSH, 11/21/2024: 2.27 EKG, 10/3124: AFib Carotid Doppler, 11/26/2024: 1. No hemodynamically significant stenosis noted in the right carotid system. Approximately 50-69 % focal stenosis in the mid right internal carotid artery. 2. No hemodynamically significant stenosis noted in the left carotid system. 3. The vertebral arteries were not visualized. Echocardiogram, 11/27/2024: Sinus rhythm. Concentric LVH with left atrial enlargement and aortic root enlargement. Dilation of the sinuses of Valsalva. Moderate mitral annular calcification of the base of the posterior mitral leaflet. The aortic and tricuspid appear to be structurally normal. Left ventricular systolic performance appears to be preserved. EF is about 55%. There is impaired diastolic relaxation. Normal RV function. There is mild aortic insufficiency. Mild tricuspid regurgitation. No pericardial effusion masses or vegetations. CT head, 11/09/2024: Acute to subacute infarction of the right frontoparietal lobe with thrombus in the right middle cerebral artery M2 segment. Recommend neurology consultation. Moderate chronic microvascular ischemic changes. MRI head, 11/26/2024: Acute infarction right middle cerebral artery distribution involving the right frontal and parietal lobes. Findings consistent with right M2 middle cerebral artery segment occlusion/thrombosis. Moderate chronic microvascular ischemic changes. EGD, 11/25/2024: 1. Minimal gastroduodenitis 2. Otherwise normal examination up to the 2nd and 3rd part of the duodenal with no fresh or old blood in the upper GI tract vital signs Vital Sign Date Time Temp Pulse Resp B/P (MAP) Pulse Ox O2 Delivery O2 Flow Rate FiO2 12/04/24 21:00 99.4 101 26 147/76 (99) 96 99.4 12/04/24 18:57 Nasal Cannula 3.0 12/04/24 18:57 32 Total Intake and Output 12/03/24 12/03/24 12/04/24 15:00 23:00 07:00 Intake Total 638 ml Output Total 350 ml Balance 288 ml medications Current Medications Medications Dose Ordered Sig/Delfino Route Start Time Stop Time Status Last Admin Dose Admin Amlodipine Besylate 10 mg DAILY PO 11/22/24 10:00 11/25/24 10:19 10 MG Ipratropium [place] 0.5 mg Q6HWA NEB 11/21/24 22:00 12/04/24 18:57 0.5 MG Hydralazine HCl 10 mg Q4HP PRN IV 11/23/24 09:15 12/03/24 09:57 10 MG Pantoprazole Sodium 40 mg BID IV 11/23/24 22:00 12/04/24 22:35 40 MG Sucralfate 1 gm BID PO 11/25/24 22:00 Diagnostic Test (Pha) 1 strip Q6HR 11/25/24 18:00 12/04/24 16:56 1 STRIP Insulin Human Regular FOLLOW SLIDING SCALE Q6HR SC 11/25/24 18:00 12/04/24 17:31 4 UNITS Dextrose 50 ml UD IV 11/25/24 17:15 Ceftriaxone Sodium 50 ml @ 100 mls/hr DAILY@09 IV 11/26/24 09:00 12/04/24 11:46 100 MLS/HR Atorvastatin Calcium 40 mg HS PO 11/26/24 22:00 Amiodarone HCl 200 mg Q12HR PO 11/28/24 22:00 Metoprolol Tartrate 1.25 mg Q6HPRN PRN IV 11/28/24 18:30 Amino Acids 0 ml @ 0 mls/hr PER PHARMACY IV 11/30/24 15:15 Epoetin Rolando-epbx 4,000 unit MWF [place] 12/01/24 14:00 UNV Epoetin Rolando-epbx 4,000 unit MWF [place] 12/01/24 14:00 12/03/24 11:25 4,000 UNIT Enteral Nutritional Formula 1,000 ml 40ML/HR NG 12/02/24 18:00 Fat Emulsion Intravenous 150 ml/Sodium Chloride 40 meq/ Potassium Chloride 20 meq/ Multivitamins 10 ml/Chromium/ Copper/Manganese/ Zinc 1 ml/Amino Acids/Dextrose/ Purified Water 1,431 ml @ 59 mls/hr [id number] IV 12/03/24 22:00 12/04/24 21:59 Cancel Fat Emulsion Intravenous 100 ml/Sodium Chloride 20 meq/ Sodium Acetate 40 meq/Potassium Chloride 20 meq/ Potassium Acetate 20 meq/Magnesium Sulfate 4 meq/ Multivitamins 10 ml/Chromium/ Copper/Manganese/ Zinc 1 ml/Amino Acids/Dextrose/ Purified Water 1,757 ml @ 73 mls/hr Q24H5M IV 12/04/24 22:00 12/05/24 21:59 12/04/24 22:40 73 MLS/HR objective General: the patient is well developed and nourished. No acute distress. MENTAL STATUS: Subjective SPEECH, LANGUAGE, HIGHER CORTICAL FUNCTION: Subjective CRANIAL NERVES: He might have left hemianopsia. Pupils are equal, round and reactive. EOMs full and conjugate. Facial sensation intact in all three divisions bilaterally. Mandibular strength intact. Facial muscles symmetrical and strength intact. SENSATION: Sensation to touch and pinprick is unremarkable MOTOR: Normal tone in the upper and lower extremity. Normal muscle bulk. No fasciculations. No abnormal movements or posturing. He moves the right, questionable movement in the left leg, he does not move the left arm and the leg REFLEXES: Deep tendon reflexes are symmetrical. Upgoing toes in the left foot CEREBELLAR/COORDINATION: Deferred GAIT/STATION: deferred laboratory and microbiology Laboratory Tests 12/04/24 07:18 Test 12/04/24 07:18 Range/Units Serum Glucose 124 H 74-106 mg/dL Problem List Acute respiratory distress in the evening on 12/04/2028 Acute right MCA territory stroke with acute left hemiparesis Atrial fibrillation Altered mental status Secondary to acute stroke Metabolic encephalopathy Rule out seizure activity End-stage kidney failure Acute neck pain, etiology unclear Mass GI bleeding status post RBC transfusion History of colon cancer Gait disturbance, maybe secondary to drug effects Assessment/Plan Monitoring Supportive treatment Telemetry Chest x-ray Aspirin [place] 300 mg daily Lipitor 40 mg daily Carafate 1 g b.i.d. Protonix 40 mg b.i.d. Nephrology on case/hemodialysis GI specialist on case More recommendation per clinical course This medical document was created using an electronic medical record system with [employer] dictation system. Although this document has been carefully reviewed, there may still be some phonetic and typographical errors. These areas are purely typographical due to imperfections of the software programs, and do not reflect any compromise in the patient's medical care. Prognosis poor Dietary Evaluation Review Comments: 1) Nepro Carbsteady 240ml TID 2) Consider renal standard diet 3) Monitor PO intake, lab values, weight trend, and I/O Expected Outcomes/Goals: To meet >75% estimated needs lab values to improve Fu 3-5 days Plan discussed with: Other Total Time (mins): 40 CC Plasma Assessment Blood Product Administration S: [id number] PATSY SALGADO MD Dec 04, 2024 23:54
--- NOTE | 2024-12-04 23:57 | DVH ---
CHEST RADIOGRAPH Indication: preprocedural Technique: 1 view Comparison: XY CHEST TWO VIEWS ROUTINE on DOS: 10/07/22 FINDINGS: Lines and Tubes: Intervally placed, partially visualized tunneled right IJ catheter terminates over t he right atrium. Lungs: Platelike right midlung opacity. Left basilar consolidation with obscuration of the hemidiaphr agm. Mild bilateral interstitial prominence. Pleura: Small bilateral pleural effusions suspected. Cardiomediastinal contours: Normal heart size. Other: No acute osseous abnormality. IMPRESSION: 1. Findings suggestive of heart failure including small pleural effusions. Left basilar airspace dis ease likely representing compressive atelectasis.
[2024-12-05] VITALS (23 sets, daily range): BP systolic 111–185; BP diastolic 47–83; PULSE 91–116; RESP 17–26; TEMP 97.9–100.6; O2SAT 92–100
[2024-12-05] MEDS: IPRATROPIUM BROM 0.5 MG/2.5ML INH SOL NEB SCH (01:35)
[2024-12-05 01:36] LABS: Hematocrit 24.1 % (41.0-53.0); Hemoglobin 8.6 g/dL (13.5-17.5); Mean Corpuscular Hemoglobin 31.1 pg (28.0-32.0); Mean Corpuscular Volume 87.4 fL (80.0-100.0); Nucleated Red Blood Cells % 0.2 %
[2024-12-05 01:53] LABS: Albumin 3.6 g/dL (3.2-4.8); Anion Gap 12 (5-15); BUN/Creatinine Ratio 12.2 (10.0-20.0); Bilirubin, Total 0.6 mg/dL (0.2-1.0); Calcium 9.0 mg/dL (8.7-10.4); Carbon Dioxide 24 mmol/L (20-31); Chloride 99 mmol/L (98-107); Magnesium 2.0 mg/dL (1.6-2.6); Potassium 3.9 mmol/L (3.5-5.1); Total Protein 6.5 g/dL (5.7-8.2)
[2024-12-05 01:57] LABS: Alanine Aminotransferase 40 U/L (7-40); Alkaline Phosphatase 184 U/L (46-116); Blood Urea Nitrogen 63 mg/dL (9-23); Glucose 141 mg/dL (74-106); Sodium 135 mmol/L (136-145)
[2024-12-05] MEDS: FUROSEMIDE 20 MG/2 ML VIAL IV ONE (02:33)
[2024-12-05 07:59] LABS: Nucleated Red Blood Cells % 0.1 %
[2024-12-05 08:01] LABS: Hematocrit 24.8 % (41.0-53.0); Hemoglobin 8.3 g/dL (13.5-17.5); Mean Corpuscular Hemoglobin 29.6 pg (28.0-32.0); Mean Corpuscular Volume 88.9 fL (80.0-100.0)
[2024-12-05 08:09] LABS: INR 1.15 (0.9-1.15); Partial Thromboplastin Time 31.6 SEC (24.5-34.5); Prothrombin Time 12.0 sec (9.3-11.8)
[2024-12-05 08:17] LABS: Alanine Aminotransferase 44 U/L (7-40); Albumin 3.8 g/dL (3.2-4.8); Alkaline Phosphatase 193 U/L (46-116); Anion Gap 13 (5-15); BUN/Creatinine Ratio 11.7 (10.0-20.0); Bilirubin, Total 0.7 mg/dL (0.2-1.0); Blood Urea Nitrogen 64 mg/dL (9-23); Calcium 9.5 mg/dL (8.7-10.4); Carbon Dioxide 22 mmol/L (20-31); Chloride 99 mmol/L (98-107); Glucose 100 mg/dL (74-106); Magnesium 2.0 mg/dL (1.6-2.6); Potassium 4.2 mmol/L (3.5-5.1); Sodium 134 mmol/L (136-145); Total Protein 6.9 g/dL (5.7-8.2)
--- NOTE | 2024-12-05 09:40 | DVH ---
CHEST RADIOGRAPH Indication: CHF Technique: Single frontal view of the chest was obtained COMPARISON: XY CHEST XRAY 1 VIEW on DOS: 12/04/24, XY CHEST TWO VIEWS ROUTINE on DOS: 10/07/22 FINDINGS: Lines and Tubes: Tunneled right central venous catheter in satisfactory position. Lungs: Congestion Pleura: No effusion. No pneumothorax. Cardiomediastinal contours: Cardiomegaly Bones: Unremarkable IMPRESSION: Pulmonary vascular congestion
[2024-12-05] MEDS: ALBUMIN 25% 100 ML IV ONE (09:45)
[2024-12-05] MEDS: SODIUM CHL 0.9% 1000 ML BAG XX ONE (09:45)
--- NOTE | 2024-12-05 12:01 | DVHPN2 ---
Progress Note Date Seen: Dec 05, 2024 Medical Necessity Reason Pt with a Central, PICC or Fol: Yes The following are medically ne: Ashraf Catheter Subjective Patient reports: Feels worse Objective vital signs Vital Sign Date Time Temp Pulse Resp B/P (MAP) Pulse Ox O2 Delivery O2 Flow Rate FiO2 12/05/24 10:58 110 18 96 12/05/24 10:51 Nasal Cannula 4.0 12/05/24 10:51 36 12/05/24 09:00 98.1 159/64 (95) 98.1 Total Intake and Output 12/04/24 12/04/24 12/05/24 15:00 23:00 07:00 Intake Total 50 ml 1431 ml Output Total 125 ml Balance 50 ml 1431 ml -125 ml medications Current Medications Medications Dose Ordered Sig/Delfino Route Start Time Stop Time Status Last Admin Dose Admin Amlodipine Besylate 10 mg DAILY PO 11/22/24 10:00 11/25/24 10:19 10 MG Hydralazine HCl 10 mg Q4HP PRN IV 11/23/24 09:15 12/05/24 00:12 10 MG Pantoprazole Sodium 40 mg BID IV 11/23/24 22:00 12/05/24 08:57 40 MG Sucralfate 1 gm BID PO 11/25/24 22:00 Diagnostic Test (Pha) 1 strip Q6HR 11/25/24 18:00 12/05/24 11:42 1 STRIP Insulin Human Regular FOLLOW SLIDING SCALE Q6HR SC 11/25/24 18:00 12/05/24 00:16 2 UNITS Dextrose 50 ml UD IV 11/25/24 17:15 Ceftriaxone Sodium 50 ml @ 100 mls/hr DAILY@09 IV 11/26/24 09:00 12/05/24 08:57 100 MLS/HR Atorvastatin Calcium 40 mg HS PO 11/26/24 22:00 Amiodarone HCl 200 mg Q12HR PO 11/28/24 22:00 Metoprolol Tartrate 1.25 mg Q6HPRN PRN IV 11/28/24 18:30 Amino Acids 0 ml @ 0 mls/hr PER PHARMACY IV 11/30/24 15:15 Epoetin Rolando-epbx 4,000 unit MWF SC 12/01/24 14:00 UNV Epoetin Rolando-epbx 4,000 unit MWF SC 12/01/24 14:00 12/05/24 08:58 4,000 UNIT Enteral Nutritional Formula 1,000 ml 40ML/HR NG 12/02/24 18:00 Fat Emulsion Intravenous 150 ml/Sodium Chloride 40 meq/ Potassium Chloride 20 meq/ Multivitamins 10 ml/Chromium/ Copper/Manganese/ Zinc 1 ml/Amino Acids/Dextrose/ Purified Water 1,431 ml @ 59 mls/hr [id number] IV 12/03/24 22:00 12/04/24 21:59 Cancel Fat Emulsion Intravenous 100 ml/Sodium Chloride 20 meq/ Sodium Acetate 40 meq/Potassium Chloride 20 meq/ Potassium Acetate 20 meq/Magnesium Sulfate 4 meq/ Multivitamins 10 ml/Chromium/ Copper/Manganese/ Zinc 1 ml/Amino Acids/Dextrose/ Purified Water 1,757 ml @ 73 mls/hr Q24H5M IV 12/04/24 22:00 12/05/24 21:59 12/04/24 22:40 73 MLS/HR Ipratropium [place] 0.5 mg Q4HR NEB 12/05/24 01:00 12/05/24 10:59 0.5 MG Furosemide 20 mg DAILY IV 12/06/24 10:00 Examination: GENERAL:Abnormal, LUNGS:Abnormal, CVS:Abnormal, ABDOMEN:Abnormal, NEURO:Abnormal laboratory and microbiology Laboratory Tests 12/05/24 06:52 Test 12/05/24 06:52 Range/Units Serum Glucose 100 74-106 mg/dL Microbiology Date/Time Source Procedure Growth Status 11/25/24 09:23 Urine - Midstream Clean Catch Urine Culture - Final Complete 11/22/24 06:00 Nose MRSA Screen - Final Complete Problem List/Assessment/Plan Problem List/Assessment/Plan Admitted for acute CVA ESRD on HD HTN hx of COPD Anemia CVA fronto parietal metabolic acidosis CHF patient only tolerated 1L UF HD yesterday, informed overnight patient SOB. CXR shows congestion and atelectasis HD today attempted drastic drop in BP UF unfortunately only 1L due to instability pending PEG Strict I&Os Blood pressure control epogen 3x a week tube feeding nutrition as per primary team rec pulm eval for breathing optimization Plan discussed with: Patient My Orders My Orders Orders - TERESA REYNOLDS MD Procedure Category Date Status Time Hemodialysis Orders ORDERS 12/04/24 Transmitted 12:30 Chest Xray 1 View XY 12/05/24 Resulted 06:18 Hemodialysis Orders ORDERS 12/05/24 Transmitted 09:36 Dialysis Nursing SONJA 12/05/24 In Process Message 09:36 Document Fluid Input SONJA 12/05/24 In Process And Outpu 09:36 Dietary Evaluation Review Comments: 1) Nepro Carbsteady 240ml TID 2) Consider renal standard diet 3) Monitor PO intake, lab values, weight trend, and I/O Expected Outcomes/Goals: To meet >75% estimated needs lab values to improve Fu 3-5 days CC Plasma Assessment Blood Product Administration S: [id number] TERESA REYNOLDS MD Dec 05, 2024 12:01
--- NOTE | 2024-12-05 16:34 | DVHPN2 ---
Progress Note Date Seen: Dec 05, 2024 Resident Creating Document: ROBLES SWEENEY RESIDENT Medical Necessity Reason Pt with a Central, PICC or Fol: Yes The following are medically ne: Ashraf Catheter Subjective Review of Systems This is a 79-year-old male with extensive comorbidities including: * Colon cancer s/p partial colectomy, now in remission * ESRD on hemodialysis (baseline Cr ~7.1, BUN 92) * Acute ischemic stroke with aphasia and non-verbal status (Dx: MCA territory infarct) * Failed multiple swallow evaluations ? high aspiration risk * Failed NG tube placement due to intolerance * Malnutrition and ongoing nutritional dependence via PPN * Now scheduled for PEG tube placement tomorrow following family approval Todays Saeed Updates: * PEG consent obtained from family * Patient continues NPO, tolerating TPN * Failed swallow eval again; feeding intolerance persists * Hemodynamically stable on 2L NC * No new GI complaints (no emesis, bleeding, or distension) * Posterior scalp mass noted on exam; ultrasound shows echogenic lesion (7.3 x 8.7 cm), no internal vascularity, fluid component suspected; recommendation: surgical/dermatologic evaluation * Colostomy output minimal, no signs of obstruction * Hemoglobin downtrended from 9.1 ? 8.3 g/dL, stable today * LFTs trending down (AST 57, ALP 175) * Vascular access imaging reveals left AVF likely thrombosed, right AVF shows elevated brachial artery velocity concerning for stenosis * Disposition pending: Possible SNF or hospice * PEG TUBE PLACEMENT POSTPONED TO SUNDAY DUE TO SCHEDULING CONFLICT. ASPIRIN RESUMED TODAY. WE WILL HOLD ASPIRIN ON SUNDAY EVENING. Objective vital signs Vital Sign Date Time Temp Pulse Resp B/P (MAP) Pulse Ox O2 Delivery O2 Flow Rate FiO2 12/05/24 13:24 111 18 96 12/05/24 13:18 Nasal Cannula* 4 36 12/05/24 13:00 97.9 116/71 (86) 97.9 Total Intake and Output 12/04/24 12/04/24 12/05/24 15:00 23:00 07:00 Intake Total 50 ml 1431 ml Output Total 125 ml Balance 50 ml 1431 ml -125 ml medications Current Medications Medications Dose Ordered Sig/Delfino Route Start Time Stop Time Status Last Admin Dose Admin Amlodipine Besylate 10 mg DAILY PO 11/22/24 10:00 11/25/24 10:19 10 MG Hydralazine HCl 10 mg Q4HP PRN IV 11/23/24 09:15 12/05/24 00:12 10 MG Pantoprazole Sodium 40 mg BID IV 11/23/24 22:00 12/05/24 08:57 40 MG Sucralfate 1 gm BID PO 11/25/24 22:00 Diagnostic Test (Pha) 1 strip Q6HR 11/25/24 18:00 12/05/24 11:42 1 STRIP Insulin Human Regular FOLLOW SLIDING SCALE Q6HR MO 11/25/24 18:00 12/05/24 00:16 2 UNITS Dextrose 50 ml UD IV 11/25/24 17:15 Ceftriaxone Sodium 50 ml @ 100 mls/hr DAILY@09 IV 11/26/24 09:00 12/05/24 08:57 100 MLS/HR Atorvastatin Calcium 40 mg HS PO 11/26/24 22:00 Amiodarone HCl 200 mg Q12HR PO 11/28/24 22:00 Metoprolol Tartrate 1.25 mg Q6HPRN PRN IV 11/28/24 18:30 Amino Acids 0 ml @ 0 mls/hr PER PHARMACY IV 11/30/24 15:15 Epoetin Rolando-epbx 4,000 unit MWF [place] 12/01/24 14:00 UNV Epoetin Rolando-epbx 4,000 unit F MO 12/01/24 14:00 12/05/24 08:58 4,000 UNIT Enteral Nutritional Formula 1,000 ml 40ML/HR NG 12/02/24 18:00 Fat Emulsion Intravenous 150 ml/Sodium Chloride 40 meq/ Potassium Chloride 20 meq/ Multivitamins 10 ml/Chromium/ Copper/Manganese/ Zinc 1 ml/Amino Acids/Dextrose/ Purified Water 1,431 ml @ 59 mls/hr [id number] IV 12/03/24 22:00 12/04/24 21:59 Cancel Fat Emulsion Intravenous 100 ml/Sodium Chloride 20 meq/ Sodium Acetate 40 meq/Potassium Chloride 20 meq/ Potassium Acetate 20 meq/Magnesium Sulfate 4 meq/ Multivitamins 10 ml/Chromium/ Copper/Manganese/ Zinc 1 ml/Amino Acids/Dextrose/ Purified Water 1,757 ml @ 73 mls/hr Q24H5M IV 12/04/24 22:00 12/05/24 21:59 12/04/24 22:40 73 MLS/HR Ipratropium [place] 0.5 mg Q4HR NEB 12/05/24 01:00 12/05/24 13:24 0.5 MG Furosemide 20 mg DAILY IV 12/06/24 10:00 Fat Emulsion Intravenous 100 ml/Sodium Chloride 40 meq/ Sodium Acetate 40 meq/Potassium Chloride 20 meq/ Potassium Acetate 20 meq/Magnesium Sulfate 4 meq/ Multivitamins 10 ml/Chromium/ Copper/Manganese/ Zinc 1 ml/Amino Acids/Dextrose/ Purified Water 1,812 ml @ 75 mls/hr [id number] IV 12/05/24 22:00 12/06/24 21:59 Examination * Abdomen: Soft, non-tender, non-distended * Colostomy: Present, minimal output, no surrounding skin breakdown * NG tube: Not present; patient failed placement attempt * PEG tube: Not yet placed; scheduled for SUNDAY * No signs of peritonitis or active GI bleeding laboratory and microbiology Laboratory Tests 12/05/24 06:52 Test 12/05/24 06:52 Range/Units Serum Glucose 100 74-106 mg/dL Microbiology Date/Time Source Procedure Growth Status 11/25/24 09:23 Urine - Midstream Clean Catch Urine Culture - Final Complete 11/22/24 06:00 Nose MRSA Screen - Final Complete Problem List/Assessment/Plan Problem List/Assessment/Plan Assessment 1. Upper GI bleed with melena resolved; no current bleeding. 2. Gastroduodenitis continue PPI and Carafate. 3. Severe anemia (multifactorial, prior GI loss and CKD) stable post- transfusion. 4. Parastomal hernia stable, no obstruction. 6. ESRD on HD continue scheduled dialysis. 7. Acute right MCA stroke with dysphagia managed by neurology. 8. Atrial fibrillation (now sinus rhythm on amiodarone) 9. Severe Protein-Calorie Malnutrition * Due to inability to tolerate oral/enteral nutrition, failed NG placement, failed swallow evaluation * Currently on parenteral nutrition via Clinimix * PEG placement scheduled 10. Dysphagia and Feeding Intolerance * Due to post-stroke aphasia and poor gag/swallow reflex * Failed repeat swallow evaluation * Requires PEG for long-term feeding 11.4. Elevated Liver Enzymes * AST: 57, ALP: 175 * Downtrending * Likely secondary to TPN, hepatic congestion, or ESRD * Continue to monitor LFTs Plan Gastrointestinal / Nutrition * Continue PPN * Maintain NPO status * PEG tube scheduled for SUNDAY * Monitor abdominal exam, colostomy output * Monitor LFTs and electrolytes daily Hematology * Monitor CBC daily * No current signs of bleeding RESUME ASPIRIN AGAIN TODAY * Hold anticoagulation ON SUNDAY EVENING UNTIL post-PEG placement * Maintain transfusion threshold Hgb <7 unless symptomatic Neurologic * Aphasia and non-verbal state post-stroke * High aspiration risk. PEG feeding * Continue supportive care, neuro re-eval not indicated unless mental status changes Infectious Disease / Antibiotics * Continue ceftriaxone pending ID re-evaluation * MRSA/urine/blood cultures negative Disposition * Awaiting PEG placement * SNF vs hospice under discussion * Family and PCP engaged in shared decision-making Case discussed in detail with the attending physician, including the clinical presentation, diagnostic workup, and comprehensive management plan. Plan discussed with: Daughter Dietary Evaluation Review Comments: 1) Nepro Carbsteady 240ml TID 2) Consider renal standard diet 3) Monitor PO intake, lab values, weight trend, and I/O Expected Outcomes/Goals: To meet >75% estimated needs lab values to improve Fu 3-5 days CC Plasma Assessment Blood Product Administration S: [id number] ROBLES SWEENEY RESIDENT Dec 05, 2024 16:34
[2024-12-05] MEDS: SODIUM ACETATE IV NR (21:52)
[2024-12-05] MEDS: SODIUM CHLORIDE IV NR (21:52)
[2024-12-05] MEDS: FAT EMULSION IV NR (21:52)
[2024-12-05] MEDS: [UNRECOGNIZED DRUG - OTHER] IV NR (21:52)
--- NOTE | 2024-12-05 22:26 | DVHPN2 ---
Subjective Patient's remains clinically stable. Re-evaluated by GI today and tentatively scheduled for EGD with PEG tube placement for Sunday. Changes from previous H/P or p: No Changes Objective Vitals Vital Signs Date Time Temp Pulse Resp B/P (MAP) Pulse Ox O2 Delivery O2 Flow Rate FiO2 12/05/24 22:12 104 26 97 12/05/24 22:07 Nasal Cannula 4.0 12/05/24 22:07 36 12/05/24 21:55 157/49 12/05/24 17:00 100.6 100.6 Intake/Output Intake and Output 12/05/24 07:00 Intake Total 1481 ml Output Total 125 ml Balance 1356 ml IV Total 1481 ml Output Urine Total 125 ml Exam Alert and awake without any acute distress. Comfortable in bed. HEENT pupils equal round react to light. Neck supple no JVD. Heart regular rate and rhythm S1-S2. Lungs fair air movement poor inspiratory effort. No wheezing. Abdomen soft positive bowel sounds nontender. Extremities no significant edema noted positive pulses Medications Current Medications Medications Dose Ordered Sig/Delfino Route Start Time Stop Time Status Last Admin Dose Admin Amlodipine Besylate 10 mg DAILY PO 11/22/24 10:00 11/25/24 10:19 10 MG Hydralazine HCl 10 mg Q4HP PRN IV 11/23/24 09:15 12/05/24 21:55 10 MG Pantoprazole Sodium 40 mg BID IV 11/23/24 22:00 12/05/24 21:54 40 MG Sucralfate 1 gm BID PO 11/25/24 22:00 Diagnostic Test (Pha) 1 strip Q6HR 11/25/24 18:00 12/05/24 17:13 1 STRIP Insulin Human Regular FOLLOW SLIDING SCALE Q6HR SC 11/25/24 18:00 12/05/24 17:13 2 UNITS Dextrose 50 ml UD IV 11/25/24 17:15 Ceftriaxone Sodium 50 ml @ 100 mls/hr DAILY@09 IV 11/26/24 09:00 12/05/24 08:57 100 MLS/HR Atorvastatin Calcium 40 mg HS PO 11/26/24 22:00 Amiodarone HCl 200 mg Q12HR PO 11/28/24 22:00 Metoprolol Tartrate 1.25 mg Q6HPRN PRN IV 11/28/24 18:30 Amino Acids 0 ml @ 0 mls/hr PER PHARMACY IV 11/30/24 15:15 Epoetin Rolando-epbx 4,000 unit [facility] 12/01/24 14:00 UNV Epoetin Rolando-epbx 4,000 unit [facility] 12/01/24 14:00 12/05/24 08:58 4,000 UNIT Enteral Nutritional Formula 1,000 ml 40ML/HR NG 12/02/24 18:00 Fat Emulsion Intravenous 150 ml/Sodium Chloride 40 meq/ Potassium Chloride 20 meq/ Multivitamins 10 ml/Chromium/ Copper/Manganese/ Zinc 1 ml/Amino Acids/Dextrose/ Purified Water 1,431 ml @ 59 mls/hr [id number] IV 12/03/24 22:00 12/04/24 21:59 Cancel Ipratropium [place] 0.5 mg Q4HR NEB 12/05/24 01:00 12/05/24 22:07 0.5 MG Furosemide 20 mg DAILY IV 12/06/24 10:00 Fat Emulsion Intravenous 100 ml/Sodium Chloride 40 meq/ Sodium Acetate 40 meq/Potassium Chloride 20 meq/ Potassium Acetate 20 meq/Magnesium Sulfate 4 meq/ Multivitamins 10 ml/Chromium/ Copper/Manganese/ Zinc 1 ml/Amino Acids/Dextrose/ Purified Water 1,812 ml @ 75 mls/hr [id number] IV 12/05/24 22:00 12/06/24 21:59 12/05/24 21:52 75 MLS/HR Aspirin 300 mg DAILY NE 12/06/24 10:00 Laboratory Results Laboratory Tests 12/05/24 06:52 Chemistry Test 12/05/24 01:13 12/05/24 06:52 Albumin 3.6 g/dL (3.2-4.8) 3.8 g/dL (3.2-4.8) Calcium Level 9.0 mg/dL (8.7-10.4) 9.5 mg/dL (8.7-10.4) Magnesium Level 2.0 mg/dL (1.6-2.6) 2.0 mg/dL (1.6-2.6) Total Protein 6.5 g/dL (5.7-8.2) 6.9 g/dL (5.7-8.2) Phosphorus Level 3.3 mg/dL (2.4-5.1) Coagulation Test 12/05/24 06:52 Prothrombin Time 12.0 sec (9.3-11.8) H Prothrombin Time INR 1.15 (0.9-1.15) Activated Partial Thromboplast Time 31.6 SEC (24.5-34.5) Cardiac Markers Test 12/05/24 01:13 B-Type Natriuretic Peptide 1020.61 pg/mL (0-100) LFT Test 12/05/24 01:13 12/05/24 06:52 Alanine Aminotransferase (ALT) 40 U/L (7-40) 44 U/L (7-40) H Alkaline Phosphatase 184 U/L (46-116) H 193 U/L (46-116) H Aspartate Amino Transferase (AST) 59 U/L (13-40) H 66 U/L (13-40) H Total Bilirubin 0.6 mg/dL (0.2-1.0) 0.7 mg/dL (0.2-1.0) Urinalysis Test 11/23/24 05:50 11/25/24 09:23 Urine Amorphous Crystals Few /hpf (None Seen) Urine Color Light-brown (Yellow) Urine Clarity Turbid (Clear) H Urine pH 8.5 (5.0-9.0) Urine Specific [place] 1.011 (1.001-1.035) Urine Protein 3+ (Negative) H Urine Ketones Trace (Negative) Urine Blood 3+ /uL (Negative) H Urine Nitrite Negative (Negative) Urine Bilirubin Negative (Negative) Urine Urobilinogen Normal mg/dL (Negative) Urine Leukocyte Esterase 3+ /uL (Negative) Urine RBC 2271 /hpf (0 - 3) Urine WBC Clumps Present /hpf (None Seen) Urine Microscopic WBC 312 /HPF (0-3) H Urine Squamous Epithelial Cells None seen /hpf (<5) Urine Bacteria None seen /hpf (None Seen) Urine Glucose Trace mg/dL (Normal) Microbiology Microbiology Date/Time Source Procedure Growth Status 11/25/24 09:23 Urine - Midstream Clean Catch Urine Culture - Final Complete 11/22/24 06:00 Nose MRSA Screen - Final Complete Assessment/Plan Assessment/Plan 1. Acute/subacute right MCA with left-sided hemiplegia 2. Acute delirium/acute encephalopathy suspect secondary to acute CVA 3.Melanotic stools rule out upper GI bleed, status post EGD showed gastro duodenitis 4. History of colon cancer status post partial colectomy status post chemotherapy, status post colostomy 5. End-stage renal disease on hemodialysis 6.. Hypertension 7. COPD 8. Failed swallow evaluation Continue present management as he is on. Given his anemia of chronic disease I will start him on IV iron to keep hemoglobin above nine. Hold the aspirin Sunday and proceed with a PEG tube placement on Sunday. Meantime continue rest of supportive care and treatment. Discussed with the nurse regarding care Plan discussed with: Other My Orders Orders - FENG BETTENCOURT MD Procedure Category Date Status Time Chest Xray 1 View XY 12/04/24 Resulted 23:24 Date of Service: Dec 05, 2024 Billing Provider: FENG BETTENCOURT MD Common Visit Codes: [id number] INP/OBS CARE(MOD) FENG BETTENCOURT MD Dec 05, 2024 22:26
--- NOTE | 2024-12-05 23:20 | DVHPN2 ---
Progress Note - Dictate Date Seen: Dec 05, 2024 Medical Necessity Reason Pt with a Central, PICC or Fol: Yes The following are medically ne: Ashraf Catheter Subjective Mr. Akbar is a 78 years old gentleman with a history of hypertension, dyslipidemia, COPD, end-stage kidney failure on hemodialysis, colon cancer status post colostomy, he was brought to the [facility] on 11/21/2024 with a chief company of general weakness and dark stool. I have seen and examined the patient along with nurse and sitter, he is doing better today, no of the respiratory distress, on 4 L oxygen with good pulse ox. He is awake, oriented to person, likely to place as well, and he follows some commands. Overall he is very weak He moves the right arm than leg Stool occult blood, 11/21/2024: Positive Urinalysis, 11/23/2024: UTI UDS, 11/23/2024: Negative WBC/HB/PLT/MCV, 11/21/2024: 12.3/5.8/267/94.5, 11/25/2024: 11.8/9.9/275/93.6 PT/INR/PTT, 11/21/2024: 13/1.25/41.6 BUN/CR, 11/26/2024: 53/6.41 HGB A1c, 11/21/2024: <3.8 TG/HDL/LDL/HDL, 11/27/2024: 203/156/93/21 Vitamin B12, 11/21/2024: 452 TSH, 11/21/2024: 2.27 EKG, 10/3124: AFib Carotid Doppler, 11/26/2024: 1. No hemodynamically significant stenosis noted in the right carotid system. Approximately 50-69 % focal stenosis in the mid right internal carotid artery. 2. No hemodynamically significant stenosis noted in the left carotid system. 3. The vertebral arteries were not visualized. Echocardiogram, 11/27/2024: Sinus rhythm. Concentric LVH with left atrial enlargement and aortic root enlargement. Dilation of the sinuses of Valsalva. Moderate mitral annular calcification of the base of the posterior mitral leaflet. The aortic and tricuspid appear to be structurally normal. Left ventricular systolic performance appears to be preserved. EF is about 55%. There is impaired diastolic relaxation. Normal RV function. There is mild aortic insufficiency. Mild tricuspid regurgitation. No pericardial effusion masses or vegetations. CT head, 11/09/2024: Acute to subacute infarction of the right frontoparietal lobe with thrombus in the right middle cerebral artery M2 segment. Recommend neurology consultation. Moderate chronic microvascular ischemic changes. MRI head, 11/26/2024: Acute infarction right middle cerebral artery distribution involving the right frontal and parietal lobes. Findings consistent with right M2 middle cerebral artery segment occlusion/thrombosis. Moderate chronic microvascular ischemic changes. EGD, 11/25/2024: 1. Minimal gastroduodenitis 2. Otherwise normal examination up to the 2nd and 3rd part of the duodenal with no fresh or old blood in the upper GI tract vital signs Vital Sign Date Time Temp Pulse Resp B/P (MAP) Pulse Ox O2 Delivery O2 Flow Rate FiO2 12/05/24 22:12 104 26 97 12/05/24 22:07 Nasal Cannula 4.0 12/05/24 22:07 36 12/05/24 21:55 157/49 12/05/24 17:00 100.6 100.6 Total Intake and Output 12/04/24 12/04/24 12/05/24 15:00 23:00 07:00 Intake Total 50 ml 1431 ml Output Total 125 ml Balance 50 ml 1431 ml -125 ml medications Current Medications Medications Dose Ordered Sig/Delfino Route Start Time Stop Time Status Last Admin Dose Admin Amlodipine Besylate 10 mg DAILY PO 11/22/24 10:00 11/25/24 10:19 10 MG Hydralazine HCl 10 mg Q4HP PRN IV 11/23/24 09:15 12/05/24 21:55 10 MG Pantoprazole Sodium 40 mg BID IV 11/23/24 22:00 12/05/24 21:54 40 MG Sucralfate 1 gm BID PO 11/25/24 22:00 Diagnostic Test (Pha) 1 strip Q6HR 11/25/24 18:00 12/05/24 17:13 1 STRIP Insulin Human Regular FOLLOW SLIDING SCALE Q6HR SC 11/25/24 18:00 12/05/24 17:13 2 UNITS Dextrose 50 ml UD IV 11/25/24 17:15 Ceftriaxone Sodium 50 ml @ 100 mls/hr DAILY@09 IV 11/26/24 09:00 12/05/24 08:57 100 MLS/HR Atorvastatin Calcium 40 mg HS PO 11/26/24 22:00 Amiodarone HCl 200 mg Q12HR PO 11/28/24 22:00 Metoprolol Tartrate 1.25 mg Q6HPRN PRN IV 11/28/24 18:30 Amino Acids 0 ml @ 0 mls/hr PER PHARMACY IV 11/30/24 15:15 Epoetin Rolando-epbx 4,000 unit MWF MO 12/01/24 14:00 UNV Epoetin Rolando-epbx 4,000 unit MWF [place] 12/01/24 14:00 12/05/24 08:58 4,000 UNIT Enteral Nutritional Formula 1,000 ml 40ML/HR NG 12/02/24 18:00 Fat Emulsion Intravenous 150 ml/Sodium Chloride 40 meq/ Potassium Chloride 20 meq/ Multivitamins 10 ml/Chromium/ Copper/Manganese/ Zinc 1 ml/Amino Acids/Dextrose/ Purified Water 1,431 ml @ 59 mls/hr [id number] IV 12/03/24 22:00 12/04/24 21:59 Cancel Ipratropium [place] 0.5 mg Q4HR NEB 12/05/24 01:00 12/05/24 22:07 0.5 MG Furosemide 20 mg DAILY IV 12/06/24 10:00 Fat Emulsion Intravenous 100 ml/Sodium Chloride 40 meq/ Sodium Acetate 40 meq/Potassium Chloride 20 meq/ Potassium Acetate 20 meq/Magnesium Sulfate 4 meq/ Multivitamins 10 ml/Chromium/ Copper/Manganese/ Zinc 1 ml/Amino Acids/Dextrose/ Purified Water 1,812 ml @ 75 mls/hr [id number] IV 12/05/24 22:00 12/06/24 21:59 12/05/24 21:52 75 MLS/HR Aspirin 300 mg DAILY NV 12/06/24 10:00 Iron Sucrose 110 ml @ 110 mls/hr DAILY@1200 IV 12/06/24 12:00 12/10/24 12:59 objective General: the patient is well developed and nourished. No acute distress. MENTAL STATUS: Subjective SPEECH, LANGUAGE, HIGHER CORTICAL FUNCTION: Subjective CRANIAL NERVES: He might have left hemianopsia. Pupils are equal, round and reactive. EOMs full and conjugate. Facial sensation intact in all three divisions bilaterally. Mandibular strength intact. Facial muscles symmetrical and strength intact. SENSATION: Sensation to touch and pinprick is unremarkable MOTOR: Normal tone in the upper and lower extremity. Normal muscle bulk. No fasciculations. No abnormal movements or posturing. He moves the right arm, and leg REFLEXES: Deep tendon reflexes are symmetrical. 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 Protonix 40 mg b.i.d. Nephrology on case/hemodialysis GI specialist on case More recommendation per clinical course This medical document was created using an electronic medical record system with [employer] dictation system. Although this document has been carefully reviewed, there may still be some phonetic and typographical errors. These areas are purely typographical due to imperfections of the software programs, and do not reflect any compromise in the patient's medical care. Prognosis poor Dietary Evaluation Review Comments: 1) Nepro Carbsteady 240ml TID 2) Consider renal standard diet 3) Monitor PO intake, lab values, weight trend, and I/O Expected Outcomes/Goals: To meet >75% estimated needs lab values to improve Fu 3-5 days Plan discussed with: Other CC Plasma Assessment Blood Product Administration S: [id number] PATSY SALGADO MD Dec 05, 2024 23:20
[2024-12-06] VITALS (20 sets, daily range): BP systolic 125–165; BP diastolic 51–73; PULSE 74–102; RESP 18–22; TEMP 97.6–100; O2SAT 90–100
[2024-12-06 07:44] LABS: Albumin 4.1 g/dL (3.2-4.8); Anion Gap 12 (5-15); BUN/Creatinine Ratio 12.5 (10.0-20.0); Calcium 9.6 mg/dL (8.7-10.4); Carbon Dioxide 26 mmol/L (20-31); Magnesium 2.1 mg/dL (1.6-2.6); Potassium 4.7 mmol/L (3.5-5.1); Sodium 136 mmol/L (136-145); Total Protein 7.0 g/dL (5.7-8.2)
[2024-12-06 07:45] LABS: Bilirubin, Total 0.8 mg/dL (0.2-1.0)
[2024-12-06 07:51] LABS: Alanine Aminotransferase 45 U/L (7-40); Alkaline Phosphatase 172 U/L (46-116); Blood Urea Nitrogen 56 mg/dL (9-23); Chloride 98 mmol/L (98-107); Glucose 123 mg/dL (74-106)
[2024-12-06] MEDS: FUROSEMIDE 20 MG/2 ML VIAL IV SCH (10:42)
--- NOTE | 2024-12-06 11:53 | DVHPN2 ---
Progress Note - Dictate Date Seen: Dec 06, 2024 Medical Necessity Reason Pt with a Central, PICC or Fol: Yes The following are medically ne: Ashraf Catheter Subjective 78-year-old male with a history of colon cancer (s/p partial colectomy, chemotherapy, and colostomy), ESRD on hemodialysis, COPD, hypertension, dyslipidemia, and recent acute right MCA infarction with resultant left-sided hemiparesis and altered mental status. The patient remains non-verbal, lethargic unable to communicate effectively, and continues to have poor oral intake due to failed swallow evaluation. vital signs Vital Sign Date Time Temp Pulse Resp B/P (MAP) Pulse Ox O2 Delivery O2 Flow Rate FiO2 12/06/24 11:31 102 22 100 12/06/24 11:20 Nasal Cannula 3.0 12/06/24 11:20 32 12/06/24 10:42 165/79 12/06/24 08:57 97.6 97.6 Total Intake and Output 12/05/24 12/05/24 12/06/24 15:00 23:00 07:00 Intake Total 50 ml 460 ml Output Total 75 ml Balance 50 ml 385 ml medications Current Medications Medications Dose Ordered Sig/Delfino Route Start Time Stop Time Status Last Admin Dose Admin Amlodipine Besylate 10 mg DAILY PO 11/22/24 10:00 11/25/24 10:19 10 MG Hydralazine HCl 10 mg Q4HP PRN IV 11/23/24 09:15 12/05/24 21:55 10 MG Pantoprazole Sodium 40 mg BID IV 11/23/24 22:00 12/06/24 09:10 40 MG Sucralfate 1 gm BID PO 11/25/24 22:00 Diagnostic Test (Pha) 1 strip Q6HR 11/25/24 18:00 12/06/24 06:23 1 STRIP Insulin Human Regular FOLLOW SLIDING SCALE Q6HR SC 11/25/24 18:00 12/06/24 00:00 4 UNITS Dextrose 50 ml UD IV 11/25/24 17:15 Ceftriaxone Sodium 50 ml @ 100 mls/hr DAILY@09 IV 11/26/24 09:00 12/06/24 09:10 100 MLS/HR Atorvastatin Calcium 40 mg HS PO 11/26/24 22:00 Amiodarone HCl 200 mg Q12HR PO 11/28/24 22:00 Metoprolol Tartrate 1.25 mg Q6HPRN PRN IV 11/28/24 18:30 Amino Acids 0 ml @ 0 mls/hr PER PHARMACY IV 11/30/24 15:15 Epoetin Rolando-epbx 4,000 unit MWF [place] 12/01/24 14:00 UNV Epoetin Rolando-epbx 4,000 unit [facility] [place] 12/01/24 14:00 12/05/24 08:58 4,000 UNIT Enteral Nutritional Formula 1,000 ml 40ML/HR NG 12/02/24 18:00 Fat Emulsion Intravenous 150 ml/Sodium Chloride 40 meq/ Potassium Chloride 20 meq/ Multivitamins 10 ml/Chromium/ Copper/Manganese/ Zinc 1 ml/Amino Acids/Dextrose/ Purified Water 1,431 ml @ 59 mls/hr [id number] IV 12/03/24 22:00 12/04/24 21:59 Cancel Ipratropium [place] 0.5 mg Q4HR NEB 12/05/24 01:00 12/06/24 11:20 0.5 MG Furosemide 20 mg DAILY IV 12/06/24 10:00 12/06/24 10:42 20 MG Fat Emulsion Intravenous 100 ml/Sodium Chloride 40 meq/ Sodium Acetate 40 meq/Potassium Chloride 20 meq/ Potassium Acetate 20 meq/Magnesium Sulfate 4 meq/ Multivitamins 10 ml/Chromium/ Copper/Manganese/ Zinc 1 ml/Amino Acids/Dextrose/ Purified Water 1,812 ml @ 75 mls/hr [id number] IV 12/05/24 22:00 12/06/24 21:59 12/05/24 21:52 75 MLS/HR Aspirin 300 mg DAILY [place] 12/06/24 10:00 Iron Sucrose 110 ml @ 110 mls/hr DAILY@1200 IV 12/06/24 12:00 12/10/24 12:59 Fat Emulsion Intravenous 100 ml/Sodium Chloride 60 meq/ Sodium Acetate 20 meq/Multivitamins 10 ml/Chromium/ Copper/Manganese/ Zinc 1 ml/Amino Acids/Dextrose/ Purified Water 1,736 ml @ 72 mls/hr Q24H7M IV 12/06/24 22:00 12/07/24 21:59 objective * General: Alert, oriented, lethargic and sleepy * Abdomen: Soft, mildly tender LUQ, non-distended, bowel sounds present. Colostomy bag intact, minimal output, no fresh blood. * Cardiovascular: Regular rhythm, mild tachycardia. * Pulmonary: Clear to auscultation with bibasilar crackles. * Other: Stable. laboratory and microbiology Laboratory Tests 12/06/24 05:02 12/05/24 06:52 Test 12/06/24 05:02 Range/Units Serum Glucose 123 H 74-106 mg/dL Problems(with codes): (1) ESRD (end stage renal disease) on dialysis (2) History of colon cancer (3) Acute upper GI bleed (4) Anemia (5) End-stage renal disease on hemodialysis (6) Generalized weakness Prognosis Plan Family is considering possible hospice placement Patient was tentatively scheduled for a possible PEG tube placement yesterday however this was canceled because of scheduling conflict I will request Dr. Rosalva Campbell to do a consult to evaluate him for possible a ssistant with PEG tube placement and to see if the patient is an appropriate candidate for PEG tube because of midline scar and colostomy Patient has a left lower quadrant colostomy and also a large midline scar from previous colectomy Continue IV Clinimix for now Possible attempt at an EGD with PEG tube placement on 12/08/2024 Dietary Evaluation Review Comments: 1) Nepro Carbsteady 240ml TID 2) Consider renal standard diet 3) Monitor PO intake, lab values, weight trend, and I/O Expected Outcomes/Goals: To meet >75% estimated needs lab values to improve Fu 3-5 days Plan discussed with: Other (Nurse and Dr Rosalva Campbell) CC Plasma Assessment Blood Product Administration S: [id number] ENID CAMPBELL MD Dec 06, 2024 11:53
[2024-12-06] MEDS: IRON SUCROSE COMPLEX 110 ML IV SCH (12:27)
--- NOTE | 2024-12-06 12:40 | DVHINCON2 ---
Date of service: Dec 06, 2024 Family History: FH: breast cancer G8 MOTHER, FH: colon cancer DAUGHTER, Allergies: Coded Allergies: No Known Drug Allergy (Verified Allergy, Unknown, 12/04/24) Home Meds Active Scripts Apixaban Base (ELIQUIS) 5 Mg Tab, 2.5 MG PO BID for 60 Days, #60 TAB Prov:MILO MULLINS MD 10/10/22 Metoprolol Tartrate (Lopressor) 25 Mg Tb, 50 MG PO BID for 90 Days, #360 TAB Prov:MILO MULLINS MD 10/10/22 Current Medications Current Medications Medications (Trade) Dose Ordered Sig/Delfino Route PRN Reason Start Time Stop Time Status Last Admin Furosemide (Lasix Injection) 20 mg DAILY IV 12/06/24 10:00 12/06/24 10:42 Fat Emulsion Intravenous 100 ml/Sodium Chloride 40 meq/ Sodium Acetate 40 meq/Potassium Chloride 20 meq/ Potassium Acetate 20 meq/Magnesium Sulfate 4 meq/ Multivitamins 10 ml/Chromium/ Copper/Manganese/ Zinc 1 ml/Amino Acids/Dextrose/ Purified Water 1,812 ml @ 75 mls/hr [id number] IV 12/05/24 22:00 12/06/24 21:59 12/05/24 21:52 Aspirin 300 mg DAILY NE 12/06/24 10:00 Iron Sucrose 110 ml @ 110 mls/hr DAILY@1200 IV 12/06/24 12:00 12/10/24 12:59 12/06/24 12:27 Fat Emulsion Intravenous 100 ml/Sodium Chloride 60 meq/ Sodium Acetate 20 meq/Multivitamins 10 ml/Chromium/ Copper/Manganese/ Zinc 1 ml/Amino Acids/Dextrose/ Purified Water 1,736 ml @ 72 mls/hr Q24H7M IV 12/06/24 22:00 12/07/24 21:59 Vital Signs Vital Signs Date Time Temp Pulse Resp B/P (MAP) Pulse Ox O2 Delivery O2 Flow Rate FiO2 12/06/24 11:31 102 22 100 12/06/24 11:20 Nasal Cannula 3.0 12/06/24 11:20 32 12/06/24 10:42 165/79 12/06/24 08:57 97.6 97.6 Labs/Diagnostic Data Labs Test 12/06/24 06:04 12/06/24 05:02 12/05/24 06:52 12/05/24 01:13 Range/Units POC Glucose 111 H 70-106 mg/dl Sodium Level 136 136-145 mmol/L Potassium Level 4.7 3.5-5.1 mmol/L Chloride Level 98 98-107 mmol/L Carbon Dioxide Level 26 20-31 mmol/L Anion Gap 12 5-15 Blood Urea Nitrogen 56 H 9-23 mg/dL Creatinine 4.49 H 0.700-1.30 mg/dL Glomerular Filtration Rate Calc 13 >90 mL/min BUN/Creatinine Ratio 12.5 10.0-20.0 Serum Glucose 123 H 74-106 mg/dL Calcium Level 9.6 8.7-10.4 mg/dL Phosphorus Level 2.0 L 2.4-5.1 mg/dL Magnesium Level 2.1 1.6-2.6 mg/dL Total Bilirubin 0.8 0.2-1.0 mg/dL Aspartate Amino Transferase (AST) 66 H 13-40 U/L Alanine Aminotransferase (ALT) 45 H 7-40 U/L Alkaline Phosphatase 172 H 46-116 U/L Total Protein 7.0 5.7-8.2 g/dL Albumin 4.1 3.2-4.8 g/dL White Blood Count 9.0 4.4-10.8 10^3/uL Red Blood Count 2.79 L 4.5-5.90 10^6/uL Hemoglobin 8.3 L 13.5-17.5 g/dL Hematocrit 24.8 L 41.0-53.0 % Mean Corpuscular Volume 88.9 80.0-100.0 fL Mean Corpuscular Hemoglobin 29.6 28.0-32.0 pg Mean Corpuscular Hemoglobin Concent 33.3 32.0-36.0 g/dL Red Cell Distribution Width 18.9 H 11.8-14.3 % Platelet Count 266 140-450 10^3/uL Mean Platelet Volume 9.3 6.9-10.8 fL Neutrophils (%) (Auto) 83.8 H 37.0-80.0 % Lymphocytes (%) (Auto) 6.7 L 10.0-50.0 % Monocytes (%) (Auto) 8.3 0.0-12.0 % Eosinophils (%) (Auto) 0.5 0.0-7.0 % Basophils (%) (Auto) 0.7 0.0-2.0 % Neutrophils # (Auto) 7.6 1.6-8.6 10 ^3/uL Lymphocytes # (Auto) 0.6 0.4-5.4 10 ^3/uL Monocytes # (Auto) 0.7 0-1.3 10 ^3/uL Eosinophils # (Auto) 0 0-0.8 10 ^3/uL Basophils # (Auto) 0.1 0-0.2 10 ^3/uL Nucleated Red Blood Cells 0.1 % Prothrombin Time 12.0 H 9.3-11.8 sec Prothrombin Time INR 1.15 0.9-1.15 Activated Partial Thromboplast Time 31.6 24.5-34.5 SEC B-Type Natriuretic Peptide 1020.61 0-100 pg/mL Test 12/04/24 07:18 11/28/24 05:13 11/27/24 08:54 11/25/24 09:23 Range/Units Triglycerides Level 249 H < 150 mg/dL Digoxin Level 7.16 *H 0.8-2 ng/mL Cholesterol Level 156 < 200 mg/dL LDL Cholesterol 93 < 100 mg/dL HDL Cholesterol 21 L 40-59 mg/dL Urine Color Light-brown Yellow Urine Clarity Turbid H Clear Urine pH 8.5 5.0-9.0 Urine Specific [place] 1.011 1.001-1.035 Urine Protein 3+ H Negative Urine Ketones Trace Negative Urine Blood 3+ H Negative /uL Urine Nitrite Negative Negative Urine Bilirubin Negative Negative Urine Urobilinogen Normal Negative mg/dL Urine Leukocyte Esterase 3+ Negative /uL Urine RBC 2271 0 - 3 /hpf Urine WBC Clumps Present None Seen /hpf Urine Microscopic WBC 312 H 0-3 /HPF Urine Squamous Epithelial Cells None seen <5 /hpf Urine Bacteria None seen None Seen /hpf Urine Glucose Trace Normal mg/dL Test 11/25/24 09:22 11/23/24 06:20 11/23/24 05:50 11/22/24 04:27 Range/Units Blood Gas Specimen Type Arterial Blood Gas Sample Site Left radial Blood Gas Patient Temperature 37.0 Arterial Blood Date Drawn [id number] Arterial Blood pH 7.528 H 7.350-7.450 Arterial Blood Partial Pressure CO2 28.5 L 35.0-48.0 mmHg Arterial Blood Partial Pressure O2 81.2 L 83.0-108.0 mmHg Arterial Blood HCO3 23.2 21.0-28.0 mmol/L Arterial Blood Oxygen Saturation 96.0 94.0-98.0 % Arterial Blood Base Excess 1.0 -2.0-3.0 mmol/L Arterial Blood Oxyhemoglobin 94.9 94.0-98.0 % Arterial Blood Carboxyhemoglobin 1.0 0.5-1.5 % Arterial Blood Methemoglobin 0.1 0.0-1.5 % Hugh Test Yes Blood Gas Total Hemoglobin 10.00 L 13.5-17.5 g/dL Blood Gas Liter Flow 1.00 Blood Gas Modality Nasal cannula FiO2 % 24.0 Uric Acid 4.4 3.7-9.2 mg/dL Urine Amorphous Crystals Few None Seen /hpf Urine Opiates Screen Neg NEGATIVE Urine Fentanyl Screen Neg NEGATIVE Urine Barbiturates Screen Neg NEGATIVE Urine Phencyclidine Screen Neg NEGATIVE Urine Amphetamines Screen Neg NEGATIVE Urine Benzodiazepines Screen Neg NEGATIVE Urine Cocaine Screen Neg NEGATIVE Urine Cannabinoids Screen Neg NEGATIVE Hepatitis B Surface Antigen Negative Negative Hepatitis B Surface Antibody Negative Negative Test 11/21/24 20:09 11/21/24 19:45 11/21/24 14:56 11/21/24 11:36 Range/Units Stool Occult Blood Positive Negative Stool Occult Blood Sample #3 Negative Stool for White Cells Few Ammonia < 10 L 11-32 umol/L Vitamin D 25-Hydroxy 52.8 30.0-100 ng/mL Troponin I High Sensitivity 61 *H </=54 ng/L Hemoglobin A1c < 3.8 <5.7 % A1C Lactic Acid Level 1.4 0.4-2.0 mmol/L Iron Level 26 L 65-175 ug/dL Total Iron Binding Capacity 208 L 250-425 ug/dL Percent Iron Saturation 12.5 L 20-55 % Ferritin 869.1 H 22-322 ng/mL Vitamin B12 Level 452 211-911 pg/mL Thyroid Stimulating Hormone (TSH) 2.27 0.55-4.78 uIU/mL Parathyroid Hormone (Intact) 123.5 H 18.4-80.1 pg/mL Microbiology Date/Time Source Procedure Growth Status 11/25/24 09:23 Urine - Midstream Clean Catch Urine Culture - Final Complete 11/22/24 06:00 Nose MRSA Screen - Final Complete Assessment [id number] AFEBRILE VSS ABD SOFT COLOSTOMY IN PLACE FUNCTIONAL CONSIDER OPEN GASTROSTOMY FOR FEEDING BASED ON ONGOING EVAL FAMILY TO DECIDE NURSE AT BEDSIDE Plan discussed with: Other ZAHRAA NATION MD Dec 06, 2024 12:40
--- NOTE | 2024-12-06 15:09 | DVHINCON2 ---
DATE OF CONSULTATION: 12/06/2024 HISTORY OF PRESENT ILLNESS: This patient is 79 years old, unable to give adequate history. Most of the information obtained from the chart. I was asked to see him with regards to PEG tube placement because of his dehydration and malnutrition. He was admitted on 11/21/2024. He is 79 years old. History of COPD; end-stage renal disease, on hemodialysis over the past 2 years and history of hypertension; hypokalemia, came in with weakness and the concern is dehydration and malnutrition and feasibility of a PEG tube placement. PAST MEDICAL HISTORY: COPD, end-stage renal disease, AV fistula, hypertension, hypokalemia. PAST SURGICAL HISTORY: Colon cancer status post colostomy, resection done and this was done probably in 2015, the reason not clear. PHYSICAL EXAMINATION: VITAL SIGNS: Afebrile, stable signs. HEENT: With no evidence of pallor, cyanosis or jaundice. NECK: Supple and nontender with no thyromegaly or lymphadenopathy. CHEST AND LUNGS: Clear. HEART: Within normal limits. ABDOMEN: Soft. He has a functional colostomy, viable colostomy. He does have a previous incision from his surgery going up to the epigastric location and the feasibility of the PEG tube could be risky because of the colon situated in the site where the PEG tube needs to be placed. PLAN: So the plan would be is to consider EGD for PEG tube placement only if it is safe for the open PEG tube placement or a gastrostomy tube placement and that can be considered based upon ongoing evaluation and records from the facility where the colon surgery was done will be required to determine the feasibility and the possibility of doing the open gastrostomy. MD RADHAMES Lowe/LILIA/JENNIFER TID: [id number] RECEIPT: [id number] cc: Crescencio Tom MD
[2024-12-06] MEDS: SODIUM PHOSPHATES 10 MEQ in SODIUM CHL 0.9% 100 ML IV ONE (15:34)
--- NOTE | 2024-12-06 15:56 | DVHPN2 ---
Progress Note Date Seen: Dec 06, 2024 Medical Necessity Reason Pt with a Central, PICC or Fol: Yes The following are medically ne: Ashraf Catheter Subjective Changes from previous H/P or p: No Changes Objective vital signs Vital Sign Date Time Temp Pulse Resp B/P (MAP) Pulse Ox O2 Delivery O2 Flow Rate FiO2 12/06/24 13:20 91 20 100 12/06/24 13:13 Nasal Cannula* 3 32 12/06/24 12:57 98.9 165/71 (102) 98.9 Total Intake and Output 12/05/24 12/05/24 12/06/24 15:00 23:00 07:00 Intake Total 50 ml 460 ml Output Total 75 ml Balance 50 ml 385 ml medications Current Medications Medications Dose Ordered Sig/Delfino Route Start Time Stop Time Status Last Admin Dose Admin Amlodipine Besylate 10 mg DAILY PO 11/22/24 10:00 11/25/24 10:19 10 MG Hydralazine HCl 10 mg Q4HP PRN IV 11/23/24 09:15 12/05/24 21:55 10 MG Pantoprazole Sodium 40 mg BID IV 11/23/24 22:00 12/06/24 09:10 40 MG Sucralfate 1 gm BID PO 11/25/24 22:00 Diagnostic Test (Pha) 1 strip Q6HR 11/25/24 18:00 12/06/24 12:29 1 STRIP Insulin Human Regular FOLLOW SLIDING SCALE Q6HR SC 11/25/24 18:00 12/06/24 12:39 2 UNITS Dextrose 50 ml UD IV 11/25/24 17:15 Ceftriaxone Sodium 50 ml @ 100 mls/hr DAILY@09 IV 11/26/24 09:00 12/06/24 09:10 100 MLS/HR Atorvastatin Calcium 40 mg HS PO 11/26/24 22:00 Amiodarone HCl 200 mg Q12HR PO 11/28/24 22:00 Metoprolol Tartrate 1.25 mg Q6HPRN PRN IV 11/28/24 18:30 Amino Acids 0 ml @ 0 mls/hr PER PHARMACY IV 11/30/24 15:15 Epoetin Rolando-epbx 4,000 unit MWF SC 12/01/24 14:00 UNV Epoetin Rolando-epbx 4,000 unit MWF SC 12/01/24 14:00 12/05/24 08:58 4,000 UNIT Enteral Nutritional Formula 1,000 ml 40ML/HR NG 12/02/24 18:00 Fat Emulsion Intravenous 150 ml/Sodium Chloride 40 meq/ Potassium Chloride 20 meq/ Multivitamins 10 ml/Chromium/ Copper/Manganese/ Zinc 1 ml/Amino Acids/Dextrose/ Purified Water 1,431 ml @ 59 mls/hr [id number] IV 12/03/24 22:00 12/04/24 21:59 Cancel Ipratropium [place] 0.5 mg Q4HR NEB 12/05/24 01:00 12/06/24 13:12 0.5 MG Furosemide 20 mg DAILY IV 12/06/24 10:00 12/06/24 10:42 20 MG Fat Emulsion Intravenous 100 ml/Sodium Chloride 40 meq/ Sodium Acetate 40 meq/Potassium Chloride 20 meq/ Potassium Acetate 20 meq/Magnesium Sulfate 4 meq/ Multivitamins 10 ml/Chromium/ Copper/Manganese/ Zinc 1 ml/Amino Acids/Dextrose/ Purified Water 1,812 ml @ 75 mls/hr [id number] IV 12/05/24 22:00 12/06/24 21:59 12/05/24 21:52 75 MLS/HR Aspirin 300 mg DAILY [place] 12/06/24 10:00 Iron Sucrose 110 ml @ 110 mls/hr DAILY@1200 IV 12/06/24 12:00 12/10/24 12:59 12/06/24 12:27 110 MLS/HR Fat Emulsion Intravenous 100 ml/Sodium Chloride 60 meq/ Sodium Acetate 20 meq/Multivitamins 10 ml/Chromium/ Copper/Manganese/ Zinc 1 ml/Amino Acids/Dextrose/ Purified Water 1,736 ml @ 72 mls/hr Q24H7M IV 12/06/24 22:00 12/07/24 21:59 Examination: GENERAL:Abnormal, LUNGS:Abnormal, ABDOMEN:Abnormal laboratory and microbiology Laboratory Tests 12/06/24 05:02 12/05/24 06:52 Test 12/06/24 05:02 Range/Units Serum Glucose 123 H 74-106 mg/dL Microbiology Date/Time Source Procedure Growth Status 11/25/24 09:23 Urine - Midstream Clean Catch Urine Culture - Final Complete 11/22/24 06:00 Nose MRSA Screen - Final Complete Problem List/Assessment/Plan Problem List/Assessment/Plan Admitted for acute CVA ESRD on HD HTN hx of COPD Anemia CVA fronto parietal metabolic acidosis CHF HD Sunday pending PEG, GI recs noted Strict I&Os Blood pressure control epogen 3x a week tube feeding nutrition as per primary team Plan discussed with: Patient Dietary Evaluation Review Comments: 1) Nepro Carbsteady 240ml TID 2) Consider renal standard diet 3) Monitor PO intake, lab values, weight trend, and I/O Expected Outcomes/Goals: To meet >75% estimated needs lab values to improve Fu 3-5 days Total Time (mins): 33 CC Plasma Assessment Blood Product Administration S: [id number] TERESA REYNOLDS MD Dec 06, 2024 15:56
--- NOTE | 2024-12-06 18:16 | DVHPN2 ---
Subjective Currently on TPN, scheduled for possible PEG tube placement on Sunday. There is no family member at bedside. Patient is still has a sitter. 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 Medications Current Medications Medications Dose Ordered Sig/Delfino Route Start Time Stop Time Status Last Admin Dose Admin Amlodipine Besylate 10 mg DAILY PO 11/22/24 10:00 11/25/24 10:19 10 MG Hydralazine HCl 10 mg Q4HP PRN IV 11/23/24 09:15 12/05/24 21:55 10 MG Pantoprazole Sodium 40 mg BID IV 11/23/24 22:00 12/06/24 09:10 40 MG Sucralfate 1 gm BID PO 11/25/24 22:00 Diagnostic Test (Pha) 1 strip Q6HR 11/25/24 18:00 12/06/24 12:29 1 STRIP Insulin Human Regular FOLLOW SLIDING SCALE Q6HR SC 11/25/24 18:00 12/06/24 12:39 2 UNITS Dextrose 50 ml UD IV 11/25/24 17:15 Ceftriaxone Sodium 50 ml @ 100 mls/hr DAILY@09 IV 11/26/24 09:00 12/06/24 09:10 100 MLS/HR Atorvastatin Calcium 40 mg HS PO 11/26/24 22:00 Amiodarone HCl 200 mg Q12HR PO 11/28/24 22:00 Metoprolol Tartrate 1.25 mg Q6HPRN PRN IV 11/28/24 18:30 Amino Acids 0 ml @ 0 mls/hr PER PHARMACY IV 11/30/24 15:15 Epoetin Rolando-epbx 4,000 unit MWF SC 12/01/24 14:00 UNV Epoetin Rolando-epbx 4,000 unit [facility] [place] 12/01/24 14:00 12/05/24 08:58 4,000 UNIT Enteral Nutritional Formula 1,000 ml 40ML/HR NG 12/02/24 18:00 Fat Emulsion Intravenous 150 ml/Sodium Chloride 40 meq/ Potassium Chloride 20 meq/ Multivitamins 10 ml/Chromium/ Copper/Manganese/ Zinc 1 ml/Amino Acids/Dextrose/ Purified Water 1,431 ml @ 59 mls/hr [id number] IV 12/03/24 22:00 12/04/24 21:59 Cancel Ipratropium [place] 0.5 mg Q4HR NEB 12/05/24 01:00 12/06/24 13:12 0.5 MG Furosemide 20 mg DAILY IV 12/06/24 10:00 12/06/24 10:42 20 MG Fat Emulsion Intravenous 100 ml/Sodium Chloride 40 meq/ Sodium Acetate 40 meq/Potassium Chloride 20 meq/ Potassium Acetate 20 meq/Magnesium Sulfate 4 meq/ Multivitamins 10 ml/Chromium/ Copper/Manganese/ Zinc 1 ml/Amino Acids/Dextrose/ Purified Water 1,812 ml @ 75 mls/hr [id number] IV 12/05/24 22:00 12/06/24 21:59 12/05/24 21:52 75 MLS/HR Aspirin 300 mg DAILY [place] 12/06/24 10:00 Iron Sucrose 110 ml @ 110 mls/hr DAILY@1200 IV 12/06/24 12:00 12/10/24 12:59 12/06/24 12:27 110 MLS/HR Fat Emulsion Intravenous 100 ml/Sodium Chloride 60 meq/ Sodium Acetate 20 meq/Multivitamins 10 ml/Chromium/ Copper/Manganese/ Zinc 1 ml/Amino Acids/Dextrose/ Purified Water 1,736 ml @ 72 mls/hr Q24H7M IV 12/06/24 22:00 12/07/24 21:59 Laboratory Results Laboratory Tests 12/05/24 06:52 12/06/24 05:02 Chemistry Test 12/06/24 05:02 Albumin 4.1 g/dL (3.2-4.8) Calcium Level 9.6 mg/dL (8.7-10.4) Magnesium Level 2.1 mg/dL (1.6-2.6) Phosphorus Level 2.0 mg/dL (2.4-5.1) L Total Protein 7.0 g/dL (5.7-8.2) LFT Test 12/06/24 05:02 Alanine Aminotransferase (ALT) 45 U/L (7-40) H Alkaline Phosphatase 172 U/L (46-116) H Aspartate Amino Transferase (AST) 66 U/L (13-40) H Total Bilirubin 0.8 mg/dL (0.2-1.0) Urinalysis Test 11/23/24 05:50 11/25/24 09:23 Urine Amorphous Crystals Few /hpf (None Seen) Urine Color Light-brown (Yellow) Urine Clarity Turbid (Clear) H Urine pH 8.5 (5.0-9.0) Urine Specific [place] 1.011 (1.001-1.035) Urine Protein 3+ (Negative) H Urine Ketones Trace (Negative) Urine Blood 3+ /uL (Negative) H Urine Nitrite Negative (Negative) Urine Bilirubin Negative (Negative) Urine Urobilinogen Normal mg/dL (Negative) Urine Leukocyte Esterase 3+ /uL (Negative) Urine RBC 2271 /hpf (0 - 3) Urine WBC Clumps Present /hpf (None Seen) Urine Microscopic WBC 312 /HPF (0-3) H Urine Squamous Epithelial Cells None seen /hpf (<5) Urine Bacteria None seen /hpf (None Seen) Urine Glucose Trace mg/dL (Normal) Microbiology Microbiology Date/Time Source Procedure Growth Status 11/25/24 09:23 Urine - Midstream Clean Catch Urine Culture - Final Complete 11/22/24 06:00 Nose MRSA Screen - Final Complete Assessment/Plan Assessment/Plan 78-year-old male with a known history of colon cancer status post partial colectomy status post oral chemotherapy currently in remission, end-stage renal disease on hemodialysis, hypertension, COPD initially presented to hospital with a black tarry stools found to have 1. Acute/subacute right MCA with left-sided hemiplegia 2. Acute delirium/acute encephalopathy suspect secondary to acute CVA 3.Melanotic stools rule out upper GI bleed, status post EGD showed gastro duodenitis 4. History of colon cancer status post partial colectomy status post chemotherapy, status post colostomy 5. End-stage renal disease on hemodialysis 6.. Hypertension 7. COPD 8. Failed swallow evaluation, multiple johnston -hold aspirin for PEG tube placement on Sunday -continue Protonix Carafate, -TPN per pharmacy, if patient failed swallow evaluation given might start TPN or tube feeding -no family member at bedside today, aspiration and fall precaution and pressure ulcer precautions. Plan discussed with: Other My Orders Orders - BRIE BOLAND MD Procedure Category Date Status Time Amino Acid PHA 12/06/24 In Process Infusion... W/Fat 22:00 Comprehensive LAB 12/07/24 Verified Metabolic Panel 04:00 Phosphorus LAB 12/07/24 Verified 04:00 Magnesium LAB 12/07/24 Verified 04:00 Tpn Per Pharmacy [facility] 12/06/24 In Process 22:00 Date of Service: Dec 06, 2024 Billing Provider: BRIE BOLAND MD Common Visit Codes: [id number] INP/OBS CARE(MOD) BRIE BOLAND MD Dec 06, 2024 18:16
[2024-12-06] MEDS: TPN PER PHARMACY IV NR (23:04)
[2024-12-07] VITALS (42 sets, daily range): BP systolic 94–172; BP diastolic 26–67; PULSE 63–119; RESP 16–29; TEMP 97.7–99.8; O2SAT 80–100
[2024-12-07 07:19] LABS: Albumin 3.8 g/dL (3.2-4.8); Anion Gap 15 (5-15); BUN/Creatinine Ratio 12.1 (10.0-20.0); Calcium 9.5 mg/dL (8.7-10.4); Carbon Dioxide 23 mmol/L (20-31); Glucose 98 mg/dL (74-106); Magnesium 2.2 mg/dL (1.6-2.6); Potassium 5.0 mmol/L (3.5-5.1); Total Protein 6.7 g/dL (5.7-8.2)
[2024-12-07 07:20] LABS: Alanine Aminotransferase 44 U/L (7-40); Alkaline Phosphatase 169 U/L (46-116); Bilirubin, Total 0.7 mg/dL (0.2-1.0); Blood Urea Nitrogen 73 mg/dL (9-23); Chloride 97 mmol/L (98-107); Sodium 135 mmol/L (136-145)
--- NOTE | 2024-12-07 13:14 | DVHPN2 ---
Subjective Patient is more awake alert, we will get another swallow evaluation, otherwise scheduled for possible PEG tube placement on Sunday. There is no family member at bedside. Patient is still has a sitter. 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 Medications Current Medications Medications Dose Ordered Sig/Delfino Route Start Time Stop Time Status Last Admin Dose Admin Amlodipine Besylate 10 mg DAILY PO 11/22/24 10:00 11/25/24 10:19 10 MG Hydralazine HCl 10 mg Q4HP PRN IV 11/23/24 09:15 12/05/24 21:55 10 MG Pantoprazole Sodium 40 mg BID IV 11/23/24 22:00 12/07/24 10:22 40 MG Sucralfate 1 gm BID PO 11/25/24 22:00 Diagnostic Test (Pha) 1 strip Q6HR 11/25/24 18:00 12/07/24 11:50 1 STRIP Insulin Human Regular FOLLOW SLIDING SCALE Q6HR SC 11/25/24 18:00 12/06/24 12:39 2 UNITS Dextrose 50 ml UD IV 11/25/24 17:15 Atorvastatin Calcium 40 mg HS PO 11/26/24 22:00 Amiodarone HCl 200 mg Q12HR PO 11/28/24 22:00 Metoprolol Tartrate 1.25 mg Q6HPRN PRN IV 11/28/24 18:30 Amino Acids 0 ml @ 0 mls/hr PER PHARMACY IV 11/30/24 15:15 Epoetin Rolando-epbx 4,000 unit MWF [place] 12/01/24 14:00 UNV Enteral Nutritional Formula 1,000 ml 40ML/HR NG 12/02/24 18:00 Fat Emulsion Intravenous 150 ml/Sodium Chloride 40 meq/ Potassium Chloride 20 meq/ Multivitamins 10 ml/Chromium/ Copper/Manganese/ Zinc 1 ml/Amino Acids/Dextrose/ Purified Water 1,431 ml @ 59 mls/hr [id number] IV 12/03/24 22:00 12/04/24 21:59 Cancel Ipratropium [place] 0.5 mg Q4HR NEB 12/05/24 01:00 12/07/24 10:14 0.5 MG Furosemide 20 mg DAILY IV 12/06/24 10:00 12/06/24 10:42 20 MG Aspirin 300 mg DAILY [place] 12/06/24 10:00 Iron Sucrose 110 ml @ 110 mls/hr DAILY@1200 IV 12/06/24 12:00 12/10/24 12:59 12/07/24 12:17 110 MLS/HR Fat Emulsion Intravenous 100 ml/Sodium Chloride 60 meq/ Sodium Acetate 20 meq/Multivitamins 10 ml/Chromium/ Copper/Manganese/ Zinc 1 ml/Amino Acids/Dextrose/ Purified Water 1,736 ml @ 72 mls/hr Q24H7M IV 12/06/24 22:00 12/07/24 21:59 Epoetin Rolando-epbx 6,000 unit MWF@2100 [place] 12/08/24 21:00 Laboratory Results Laboratory Tests 12/05/24 06:52 12/07/24 04:53 Chemistry Test 12/07/24 04:53 Albumin 3.8 g/dL (3.2-4.8) Calcium Level 9.5 mg/dL (8.7-10.4) Magnesium Level 2.2 mg/dL (1.6-2.6) Phosphorus Level 3.2 mg/dL (2.4-5.1) Total Protein 6.7 g/dL (5.7-8.2) LFT Test 12/07/24 04:53 Alanine Aminotransferase (ALT) 44 U/L (7-40) H Alkaline Phosphatase 169 U/L (46-116) H Aspartate Amino Transferase (AST) 60 U/L (13-40) H Total Bilirubin 0.7 mg/dL (0.2-1.0) Urinalysis Test 11/23/24 05:50 11/25/24 09:23 Urine Amorphous Crystals Few /hpf (None Seen) Urine Color Light-brown (Yellow) Urine Clarity Turbid (Clear) H Urine pH 8.5 (5.0-9.0) Urine Specific [place] 1.011 (1.001-1.035) Urine Protein 3+ (Negative) H Urine Ketones Trace (Negative) Urine Blood 3+ /uL (Negative) H Urine Nitrite Negative (Negative) Urine Bilirubin Negative (Negative) Urine Urobilinogen Normal mg/dL (Negative) Urine Leukocyte Esterase 3+ /uL (Negative) Urine RBC 2271 /hpf (0 - 3) Urine WBC Clumps Present /hpf (None Seen) Urine Microscopic WBC 312 /HPF (0-3) H Urine Squamous Epithelial Cells None seen /hpf (<5) Urine Bacteria None seen /hpf (None Seen) Urine Glucose Trace mg/dL (Normal) Microbiology Microbiology Date/Time Source Procedure Growth Status 11/25/24 09:23 Urine - Midstream Clean Catch Urine Culture - Final Complete 11/22/24 06:00 Nose MRSA Screen - Final Complete Assessment/Plan Assessment/Plan 78-year-old male with a known history of colon cancer status post partial colectomy status post oral chemotherapy currently in remission, end-stage renal disease on hemodialysis, hypertension, COPD initially presented to hospital with a black tarry stools found to have 1. Acute/subacute right MCA with left-sided hemiplegia 2. Acute delirium/acute encephalopathy suspect secondary to acute CVA 3.Melanotic stools rule out upper GI bleed, status post EGD showed gastro duodenitis 4. History of colon cancer status post partial colectomy status post chemotherapy, status post colostomy 5. End-stage renal disease on hemodialysis 6.. Hypertension 7. COPD 8. Failed swallow evaluation, multiple times -hold aspirin for PEG tube placement on Sunday, please get a repeat swallow evaluation before PEG tube placement -continue Protonix Carafate, -currently TPN is off -no family member at bedside today, aspiration and fall precaution and pressure ulcer precautions. Plan discussed with: Patient My Orders Orders - BRIE BOLAND MD Procedure Category Date Status Time Speech Evaluation 12/07/24 Logged 11:29 Date of Service: Dec 07, 2024 Billing Provider: BRIE BOLAND MD Common Visit Codes: [id number] INP/OBS CARE(MOD) BRIE BOLAND MD Dec 07, 2024 13:14
[2024-12-07] MEDS: ALBUMIN 25% 100 ML IV ONE (16:22)
--- NOTE | 2024-12-07 17:12 | DVHPN2 ---
Progress Note Date Seen: Dec 07, 2024 Medical Necessity Reason Pt with a Central, PICC or Fol: Yes The following are medically ne: Ashraf Catheter Objective vital signs Vital Sign Date Time Temp Pulse Resp B/P (MAP) Pulse Ox O2 Delivery O2 Flow Rate FiO2 12/07/24 14:18 94 16 100 12/07/24 12:50 98.2 127/56 (79) 98.2 12/07/24 10:17 Nasal Cannula 0.5 12/07/24 10:00 21 Total Intake and Output 12/06/24 12/06/24 12/07/24 15:00 23:00 07:00 Intake Total 725 ml 1050 ml Balance 725 ml 1050 ml medications Current Medications Medications Dose Ordered Sig/Delfino Route Start Time Stop Time Status Last Admin Dose Admin Amlodipine Besylate 10 mg DAILY PO 11/22/24 10:00 11/25/24 10:19 10 MG Hydralazine HCl 10 mg Q4HP PRN IV 11/23/24 09:15 12/05/24 21:55 10 MG Pantoprazole Sodium 40 mg BID IV 11/23/24 22:00 12/07/24 10:22 40 MG Sucralfate 1 gm BID PO 11/25/24 22:00 Diagnostic Test (Pha) 1 strip Q6HR 11/25/24 18:00 12/07/24 11:50 1 STRIP Insulin Human Regular FOLLOW SLIDING SCALE Q6HR SC 11/25/24 18:00 12/06/24 12:39 2 UNITS Dextrose 50 ml UD IV 11/25/24 17:15 Atorvastatin Calcium 40 mg HS PO 11/26/24 22:00 Amiodarone HCl 200 mg Q12HR PO 11/28/24 22:00 Metoprolol Tartrate 1.25 mg Q6HPRN PRN IV 11/28/24 18:30 Amino Acids 0 ml @ 0 mls/hr PER PHARMACY IV 11/30/24 15:15 Hold Epoetin Rolando-epbx 4,000 unit MWF [place] 12/01/24 14:00 UNV Enteral Nutritional Formula 1,000 ml 40ML/HR NG 12/02/24 18:00 Fat Emulsion Intravenous 150 ml/Sodium Chloride 40 meq/ Potassium Chloride 20 meq/ Multivitamins 10 ml/Chromium/ Copper/Manganese/ Zinc 1 ml/Amino Acids/Dextrose/ Purified Water 1,431 ml @ 59 mls/hr [id number] IV 12/03/24 22:00 12/04/24 21:59 Cancel Ipratropium [place] 0.5 mg Q4HR NEB 12/05/24 01:00 12/07/24 14:09 0.5 MG Furosemide 20 mg DAILY IV 12/06/24 10:00 12/06/24 10:42 20 MG Aspirin 300 mg DAILY [place] 12/06/24 10:00 Iron Sucrose 110 ml @ 110 mls/hr DAILY@1200 IV 12/06/24 12:00 12/10/24 12:59 12/07/24 12:17 110 MLS/HR Epoetin Rolando-epbx 6,000 unit MWF@2100 [place] 12/08/24 21:00 Amino Acids 0 ml @ 0 mls/hr PER PHARMACY IV 12/07/24 22:00 Amino Acids/ Electrolytes/ Dextrose 1,000 ml @ 41 mls/hr DAILY@2200 IV 12/07/24 22:00 laboratory and microbiology Laboratory Tests 12/07/24 04:53 12/05/24 06:52 Test 12/07/24 04:53 Range/Units Serum Glucose 98 74-106 mg/dL Microbiology Date/Time Source Procedure Growth Status 11/25/24 09:23 Urine - Midstream Clean Catch Urine Culture - Final Complete 11/22/24 06:00 Nose MRSA Screen - Final Complete Problem List/Assessment/Plan Problem List/Assessment/Plan AFEBRILE VSS ABD SOFT CONSIDER REPEAT SWALLOW EVAL AGAIN HIGH RISK FOR PEG PLACEMENT AND OPEN SURGERY Plan discussed with: Other Dietary Evaluation Review Comments: 1) Nepro Carbsteady 240ml TID 2) Consider renal standard diet 3) Monitor PO intake, lab values, weight trend, and I/O Expected Outcomes/Goals: To meet >75% estimated needs lab values to improve Fu 3-5 days CC Plasma Assessment Blood Product Administration S: [id number] ZAHRAA NATION MD Dec 07, 2024 17:12
[2024-12-07] MEDS: SODIUM CHL 0.9% 1000 ML BAG XX ONE (18:22)
[2024-12-07 18:52] LABS: Base Excess 4.0 mmol/L (-2.0-3.0)
--- NOTE | 2024-12-07 19:59 | DVHINCON2 ---
Date of service: Dec 07, [address] Chawla Reason for Consultation Acute respiratory failure History of Present Illness HPI pt is a 79-year-old gentleman with multiple medical problems including coronary artery disease COPD and poorly controlled diabetes end-stage renal disease on hemodialysis. The patient admitted 11/21/2024 with failure to thrive. Diagnosed with right frontal infarct periods patient is increasingly confused and also short of breath; chest x-ray obtained showed pleural effusion on the left. The patient is upgraded though the ANH. ABG obtained on BiPAP patient seen 0.54 pCO2 31 PO2 52 Home Meds Active Scripts Apixaban Base (ELIQUIS) 5 Mg Tab, 2.5 MG PO BID for 60 Days, #60 TAB Prov:MILO MULLINS MD 10/10/22 Metoprolol Tartrate (Lopressor) 25 Mg Tb, 50 MG PO BID for 90 Days, #360 TAB Prov:MILO MULLINS MD 10/10/22 Past Medical History Cardiac: CAD, HTN Pulmonary: COPD Central Nervous System: CVA, Dementia GI: No pertinent Hx Hemotology/Oncology: No pertinent Hx Hepatobiliary: No pertinent Hx Psychiatric: No pertinent Hx Musculoskeletal: No pertinent Hx Rheumotologic: No pertinent Hx Infectious Disease: No peritnent Hx Renal/: ESRD HD/PD Endocrine: No pertinent Hx Patient Family History: FH: breast cancer G8 MOTHER, FH: colon cancer DAUGHTER, Review of Systems Comments pt non verbal unable to provide H&P Exam Vital Signs Vital Signs Date Time Temp Pulse Resp B/P (MAP) Pulse Ox O2 Delivery O2 Flow Rate FiO2 12/07/24 18:55 25 125/38 (67) 91 12/07/24 18:42 109 12/07/24 17:55 Facial BiPAP Mask 100 12/07/24 17:00 98.4 98.4 12/07/24 10:17 0.5 General Appeara: Mild distress Head Exam: Normal inspection Neck Exam: Normal inspection Eye Exam: bilateral eye Normal inspection, bilateral eye PERRL Ear Exam: bilateral ear Auricle normal Pulmonary/Respiratory: Respiratory distress, Crackles Cardiovascular/Chest: Normal inspection Peripheral Pulses: 4+ carotid (R), 4+ carotid (L) Abdominal Exam: Normal bowel sounds, Soft Labs/Xrays Labs Test 12/07/24 18:42 12/07/24 04:53 8/9/25 06:04 12/05/24 06:52 Range/Units Blood Gas Specimen Type Arterial Blood Gas Sample Site Right radial Blood Gas Patient Temperature 37.0 Arterial Blood Date Drawn [id number] Arterial Blood pH 7.546 H 7.350-7.450 Arterial Blood Partial Pressure CO2 31.2 L 35.0-48.0 mmHg Arterial Blood Partial Pressure O2 52.7 *L 83.0-108.0 mmHg Arterial Blood HCO3 26.4 21.0-28.0 mmol/L Arterial Blood Oxygen Saturation 86.6 L 94.0-98.0 % Arterial Blood Base Excess 4.0 H -2.0-3.0 mmol/L Arterial Blood Oxyhemoglobin 85.4 L 94.0-98.0 % Arterial Blood Carboxyhemoglobin 1.1 0.5-1.5 % Arterial Blood Methemoglobin 0.3 0.0-1.5 % Hugh Test Yes Blood Gas Total Hemoglobin 8.30 L 13.5-17.5 g/dL Blood Gas Set Respiration Rate 12.0 Blood Gas Modality Mask - bipap FiO2 % 100.0 Blood Gas EPAP 5 Blood Gas IPAP 12 Blood Gas Critical Value Read Back Yes Blood Gas Notified Whom Obie farris md Blood Gas Notified Time [id number] Blood Gas Notified By Cj mejia rrt Sodium Level 135 L 136-145 mmol/L Potassium Level 5.0 3.5-5.1 mmol/L Chloride Level 97 L 98-107 mmol/L Carbon Dioxide Level 23 20-31 mmol/L Anion Gap 15 5-15 Blood Urea Nitrogen 73 #H 9-23 mg/dL Creatinine 6.01 H 0.700-1.30 mg/dL Glomerular Filtration Rate Calc 9 >90 mL/min BUN/Creatinine Ratio 12.1 10.0-20.0 Serum Glucose 98 74-106 mg/dL Calcium Level 9.5 8.7-10.4 mg/dL Phosphorus Level 3.2 2.4-5.1 mg/dL Magnesium Level 2.2 1.6-2.6 mg/dL Total Bilirubin 0.7 0.2-1.0 mg/dL Aspartate Amino Transferase (AST) 60 H 13-40 U/L Alanine Aminotransferase (ALT) 44 H 7-40 U/L Alkaline Phosphatase 169 H 46-116 U/L Total Protein 6.7 5.7-8.2 g/dL Albumin 3.8 3.2-4.8 g/dL POC Glucose 111 H 70-106 mg/dl White Blood Count 9.0 4.4-10.8 10^3/uL Red Blood Count 2.79 L 4.5-5.90 10^6/uL Hemoglobin 8.3 L 13.5-17.5 g/dL Hematocrit 24.8 L 41.0-53.0 % Mean Corpuscular Volume 88.9 80.0-100.0 fL Mean Corpuscular Hemoglobin 29.6 28.0-32.0 pg Mean Corpuscular Hemoglobin Concent 33.3 32.0-36.0 g/dL Red Cell Distribution Width 18.9 H 11.8-14.3 % Platelet Count 266 140-450 10^3/uL Mean Platelet Volume 9.3 6.9-10.8 fL Neutrophils (%) (Auto) 83.8 H 37.0-80.0 % Lymphocytes (%) (Auto) 6.7 L 10.0-50.0 % Monocytes (%) (Auto) 8.3 0.0-12.0 % Eosinophils (%) (Auto) 0.5 0.0-7.0 % Basophils (%) (Auto) 0.7 0.0-2.0 % Neutrophils # (Auto) 7.6 1.6-8.6 10 ^3/uL Lymphocytes # (Auto) 0.6 0.4-5.4 10 ^3/uL Monocytes # (Auto) 0.7 0-1.3 10 ^3/uL Eosinophils # (Auto) 0 0-0.8 10 ^3/uL Basophils # (Auto) 0.1 0-0.2 10 ^3/uL Nucleated Red Blood Cells 0.1 % Prothrombin Time 12.0 H 9.3-11.8 sec Prothrombin Time INR 1.15 0.9-1.15 Activated Partial Thromboplast Time 31.6 24.5-34.5 SEC Test 12/05/24 01:13 12/04/24 07:18 11/28/24 05:13 11/27/24 08:54 Range/Units B-Type Natriuretic Peptide 1020.61 0-100 pg/mL Triglycerides Level 249 H < 150 mg/dL Digoxin Level 7.16 *H 0.8-2 ng/mL Cholesterol Level 156 < 200 mg/dL LDL Cholesterol 93 < 100 mg/dL HDL Cholesterol 21 L 40-59 mg/dL Test 11/25/24 09:23 11/25/24 09:22 11/23/24 06:20 11/23/24 05:50 Range/Units Urine Color Light-brown Yellow Urine Clarity Turbid H Clear Urine pH 8.5 5.0-9.0 Urine Specific [place] 1.011 1.001-1.035 Urine Protein 3+ H Negative Urine Ketones Trace Negative Urine Blood 3+ H Negative /uL Urine Nitrite Negative Negative Urine Bilirubin Negative Negative Urine Urobilinogen Normal Negative mg/dL Urine Leukocyte Esterase 3+ Negative /uL Urine RBC 2271 0 - 3 /hpf Urine WBC Clumps Present None Seen /hpf Urine Microscopic WBC 312 H 0-3 /HPF Urine Squamous Epithelial Cells None seen <5 /hpf Urine Bacteria None seen None Seen /hpf Urine Glucose Trace Normal mg/dL Blood Gas Liter Flow 1.00 Uric Acid 4.4 3.7-9.2 mg/dL Urine Amorphous Crystals Few None Seen /hpf Urine Opiates Screen Neg NEGATIVE Urine Fentanyl Screen Neg NEGATIVE Urine Barbiturates Screen Neg NEGATIVE Urine Phencyclidine Screen Neg NEGATIVE Urine Amphetamines Screen Neg NEGATIVE Urine Benzodiazepines Screen Neg NEGATIVE Urine Cocaine Screen Neg NEGATIVE Urine Cannabinoids Screen Neg NEGATIVE Test 11/22/24 04:27 11/21/24 20:09 11/21/24 19:45 11/21/24 14:56 Range/Units Hepatitis B Surface Antigen Negative Negative Hepatitis B Surface Antibody Negative Negative Stool Occult Blood Positive Negative Stool Occult Blood Sample #3 Negative Stool for White Cells Few Ammonia < 10 L 11-32 umol/L Vitamin D 25-Hydroxy 52.8 30.0-100 ng/mL Troponin I High Sensitivity 61 *H </=54 ng/L Test 11/21/24 11:36 Range/Units Hemoglobin A1c < 3.8 <5.7 % A1C Lactic Acid Level 1.4 0.4-2.0 mmol/L Iron Level 26 L 65-175 ug/dL Total Iron Binding Capacity 208 L 250-425 ug/dL Percent Iron Saturation 12.5 L 20-55 % Ferritin 869.1 H 22-322 ng/mL Vitamin B12 Level 452 211-911 pg/mL Thyroid Stimulating Hormone (TSH) 2.27 0.55-4.78 uIU/mL Parathyroid Hormone (Intact) 123.5 H 18.4-80.1 pg/mL Microbiology Date/Time Source Procedure Growth Status 11/25/24 09:23 Urine - Midstream Clean Catch Urine Culture - Final Complete 11/22/24 06:00 Nose MRSA Screen - Final Complete Assessment/Plan Plan Acute hypoxemic respiratory failure Noninvasive ventilation Respiratory alkalosis pleural effusion atelectases pneumonia End-stage renal disease hemodialysis The patient is seen and examined In distress ABG reviewed Currently on BiPAP settings 14/7 FiO2 100% Imaging Reviewed Management plan Appears fluid overloaded Dialysis per Nephrology with fluid removal Bronchodilators NPO in view of risk For aspiration TPN for nutrition Broad-spectrum antibiotics for pneumonia Prognosis very poor in view of multiple comorbidities Critical care time 35 minutes Plan discussed with: Patient TORSTEN FARRIS MD Dec 07, 2024 19:59
--- NOTE | 2024-12-07 20:53 | DVHPN2 ---
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 The patient's neurological status is improving, patient is more awake and communicating vital signs Vital Sign Date Time Temp Pulse Resp B/P (MAP) Pulse Ox O2 Delivery O2 Flow Rate FiO2 12/07/24 20:30 104 109/41 100 Facial BiPAP Mask 80 12/07/24 18:55 25 12/07/24 17:00 98.4 98.4 12/07/24 10:17 0.5 Total Intake and Output 12/06/24 12/06/24 12/07/24 15:00 23:00 07:00 Intake Total 725 ml 1050 ml Balance 725 ml 1050 ml medications Current Medications Medications Dose Ordered Sig/Delfino Route Start Time Stop Time Status Last Admin Dose Admin Amlodipine Besylate 10 mg DAILY PO 11/22/24 10:00 11/25/24 10:19 10 MG Hydralazine HCl 10 mg Q4HP PRN IV 11/23/24 09:15 12/05/24 21:55 10 MG Pantoprazole Sodium 40 mg BID IV 11/23/24 22:00 12/07/24 10:22 40 MG Sucralfate 1 gm BID PO 11/25/24 22:00 Diagnostic Test (Pha) 1 strip Q6HR 11/25/24 18:00 12/07/24 18:24 1 STRIP Insulin Human Regular FOLLOW SLIDING SCALE Q6HR SC 11/25/24 18:00 12/06/24 12:39 2 UNITS Dextrose 50 ml UD IV 11/25/24 17:15 Atorvastatin Calcium 40 mg HS PO 11/26/24 22:00 Amiodarone HCl 200 mg Q12HR PO 11/28/24 22:00 Metoprolol Tartrate 1.25 mg Q6HPRN PRN IV 11/28/24 18:30 Amino Acids 0 ml @ 0 mls/hr PER PHARMACY IV 11/30/24 15:15 Hold Epoetin Rolando-epbx 4,000 unit MWF [place] 12/01/24 14:00 UNV Enteral Nutritional Formula 1,000 ml 40ML/HR NG 12/02/24 18:00 Fat Emulsion Intravenous 150 ml/Sodium Chloride 40 meq/ Potassium Chloride 20 meq/ Multivitamins 10 ml/Chromium/ Copper/Manganese/ Zinc 1 ml/Amino Acids/Dextrose/ Purified Water 1,431 ml @ 59 mls/hr [id number] IV 12/03/24 22:00 12/04/24 21:59 Cancel Ipratropium [place] 0.5 mg Q4HR NEB 12/05/24 01:00 12/07/24 18:40 0.5 MG Furosemide 20 mg DAILY IV 12/06/24 10:00 12/06/24 10:42 20 MG Aspirin 300 mg DAILY [place] 12/06/24 10:00 Iron Sucrose 110 ml @ 110 mls/hr DAILY@1200 IV 12/06/24 12:00 12/10/24 12:59 12/07/24 12:17 110 MLS/HR Epoetin Rolando-epbx 6,000 unit MWF@2100 OR 12/08/24 21:00 Amino Acids 0 ml @ 0 mls/hr PER PHARMACY IV 12/07/24 22:00 Amino Acids/ Electrolytes/ Dextrose 1,000 ml @ 41 mls/hr DAILY@2200 IV 12/07/24 22:00 objective * General: Alert, oriented more awake * Abdomen: Soft, mildly tender LUQ, non-distended, bowel sounds present. Colostomy bag intact, minimal output, midline scar * Cardiovascular: Regular rhythm, mild tachycardia. * Pulmonary: Clear to auscultation with bibasilar crackles. * Other: Stable. laboratory and microbiology Laboratory Tests 12/07/24 04:53 12/05/24 06:52 Test 12/07/24 04:53 Range/Units Serum Glucose 98 74-106 mg/dL Problems(with codes): (1) Generalized weakness (2) ESRD (end stage renal disease) on dialysis (3) Acute upper GI bleed (4) History of colon cancer (5) Symptomatic anemia (6) End-stage renal disease on hemodialysis Prognosis Plan There was a plan to repeat his swallow evaluation over the next 24-48 hours I will defer EGD with a PEG tube at this time until that has been tried IV follow up patient with you Patient is high-risk floor having a PEG tube because of midline scar and already pre-existing left lower quadrant colostomy which could be a source of contamination for the PEG tube site Dietary Evaluation Review Comments: 1) Nepro Carbsteady 240ml TID 2) Consider renal standard diet 3) Monitor PO intake, lab values, weight trend, and I/O Expected Outcomes/Goals: To meet >75% estimated needs lab values to improve Fu 3-5 days Plan discussed with: Other (Nurse and Dr Rosalva Campbell) CC Plasma Assessment Blood Product Administration S: [id number] ENID CAMPBELL MD Dec 07, 2024 20:53
[2024-12-07] MEDS ORDERED: TPN PER PHARMACY IV NR (22:00)
[2024-12-07] MEDS ORDERED: CLINIMIX PER PHARMACY 0 ML IV SCH (22:00)
[2024-12-07] MEDS: AMINO ACID INFUSION IN D10W 1,000 ML IV SCH (22:00)
--- NOTE | 2024-12-07 22:47 | DVHPN2 ---
Progress Note Date Seen: Dec 07, 2024 Medical Necessity Reason Pt with a Central, PICC or Fol: Yes The following are medically ne: Ashraf Catheter Subjective Patient reports: Feels worse Changes from previous H/P or p: Changes (hypotension and respiratory distress during dialysis) Objective vital signs Vital Sign Date Time Temp Pulse Resp B/P (MAP) Pulse Ox O2 Delivery O2 Flow Rate FiO2 12/07/24 21:56 97 Oxymizer 8.0 12/07/24 21:56 N/A 12/07/24 21:56 63 25 12/07/24 20:31 99.2 131/45 (73) 99.2 Total Intake and Output 12/06/24 12/06/24 12/07/24 15:00 23:00 07:00 Intake Total 725 ml 1050 ml Balance 725 ml 1050 ml medications Current Medications Medications Dose Ordered Sig/Delfino Route Start Time Stop Time Status Last Admin Dose Admin Amlodipine Besylate 10 mg DAILY PO 11/22/24 10:00 11/25/24 10:19 10 MG Hydralazine HCl 10 mg Q4HP PRN IV 11/23/24 09:15 12/05/24 21:55 10 MG Pantoprazole Sodium 40 mg BID IV 11/23/24 22:00 12/07/24 10:22 40 MG Sucralfate 1 gm BID PO 11/25/24 22:00 Diagnostic Test (Pha) 1 strip Q6HR 11/25/24 18:00 12/07/24 18:24 1 STRIP Insulin Human Regular FOLLOW SLIDING SCALE Q6HR SC 11/25/24 18:00 12/06/24 12:39 2 UNITS Dextrose 50 ml UD IV 11/25/24 17:15 Atorvastatin Calcium 40 mg HS PO 11/26/24 22:00 Amiodarone HCl 200 mg Q12HR PO 11/28/24 22:00 Metoprolol Tartrate 1.25 mg Q6HPRN PRN IV 11/28/24 18:30 Amino Acids 0 ml @ 0 mls/hr PER PHARMACY IV 11/30/24 15:15 Hold Epoetin Rolando-epbx 4,000 unit MWF SC 12/01/24 14:00 UNV Enteral Nutritional Formula 1,000 ml 40ML/HR NG 12/02/24 18:00 Fat Emulsion Intravenous 150 ml/Sodium Chloride 40 meq/ Potassium Chloride 20 meq/ Multivitamins 10 ml/Chromium/ Copper/Manganese/ Zinc 1 ml/Amino Acids/Dextrose/ Purified Water 1,431 ml @ 59 mls/hr [id number] IV 12/03/24 22:00 12/04/24 21:59 Cancel Ipratropium [place] 0.5 mg Q4HR NEB 12/05/24 01:00 12/07/24 22:11 0.5 MG Furosemide 20 mg DAILY IV 12/06/24 10:00 12/06/24 10:42 20 MG Aspirin 300 mg DAILY [place] 12/06/24 10:00 Iron Sucrose 110 ml @ 110 mls/hr DAILY@1200 IV 12/06/24 12:00 12/10/24 12:59 12/07/24 12:17 110 MLS/HR Epoetin Rolando-epbx 6,000 unit MWF@2100 SC 12/08/24 21:00 Amino Acids 0 ml @ 0 mls/hr PER PHARMACY IV 12/07/24 22:00 Amino Acids/ Electrolytes/ Dextrose 1,000 ml @ 41 mls/hr DAILY@2200 IV 12/07/24 22:00 Examination: GENERAL:Abnormal, LUNGS:Abnormal, CVS:Abnormal, SKIN:Abnormal laboratory and microbiology Laboratory Tests 12/07/24 04:53 12/05/24 06:52 Test 12/07/24 04:53 Range/Units Serum Glucose 98 74-106 mg/dL Microbiology Date/Time Source Procedure Growth Status 11/25/24 09:23 Urine - Midstream Clean Catch Urine Culture - Final Complete 11/22/24 06:00 Nose MRSA Screen - Final Complete Problem List/Assessment/Plan Problem List/Assessment/Plan Admitted for acute CVA ESRD on HD hx of COPD respiratory failure Anemia CVA fronto parietal metabolic acidosis CHF hyperkalemia HD today inital goal 2L however patient developed hypotension and saturation during dialysis.treatment ended after 2 hours and 10 mins. Rapid response called and patient placed on bipap then changed to oxy mask. Recommend pulmonary eval and manage due to high risk of aspiration. clinimax on hold for tonight due to congestion recommend next dialysis with asistance of levophed to improve hemodynamics rec new cxr levophed to keep map >65 pending PEG, GI recs noted pending stability Strict I&Os Blood pressure control epogen 3x a week poor prognosis Plan discussed with: Other My Orders My Orders Orders - TERESA REYNLODS MD Procedure Category Date Status Time Basic Metabolic Panel LAB 12/08/24 Verified 04:00 Complete Blood Count LAB 12/08/24 Verified 04:00 Hemodialysis Orders ORDERS 12/07/24 Transmitted 11:55 Dialysis Nursing SONJA 12/07/24 In Process Message 11:55 Document Fluid Input SONJA 12/07/24 In Process And Outpu 11:55 Epoetin Rolando-Epbx PHA 12/08/24 In Process (Retacrit) 21:00 Abg W/ Co-Ox RT 12/07/24 Logged 18:13 BIPAP RT 12/07/24 Logged 18:13 *Consult CONS 12/07/24 Transmitted / 18:18 Dietary Evaluation Review Comments: 1) Nepro Carbsteady 240ml TID 2) Consider renal standard diet 3) Monitor PO intake, lab values, weight trend, and I/O Expected Outcomes/Goals: To meet >75% estimated needs lab values to improve Fu 3-5 days Critical Care Time (mins): 33 CC Plasma Assessment Blood Product Administration S: [id number] TERESA REYNOLDS MD Dec 07, 2024 22:47
--- NOTE | 2024-12-07 23:21 | DVH ---
EXAM: XY CHEST PORTABLE CLINICAL HISTORY: SOB TECHNIQUE: Single AP view of the chest WID: COMPARISON: XY CHEST XRAY 1 VIEW on DOS: 12/05/24 FINDINGS: Lines and tubes: Right IJ central venous catheter with the tip projecting over the low SVC. Chest: Mild cardiomegaly and pulmonary vascular congestion. Calcified plaque projects over the aortic arch. Small to moderate left pleural effusion and left basilar consolidation. No pneumothorax. The osseous structures are grossly intact. IMPRESSION: Mild cardiomegaly and mild pulmonary vascular congestion. Small to moderate left pleural effusion and left basilar consolidation likely atelectasis though pneu monia could contribute to this appearance.
[2024-12-08] VITALS (77 sets, daily range): BP systolic 107–179; BP diastolic 23–66; PULSE 69–109; RESP 15–27; TEMP 98–101.1; O2SAT 88–100
[2024-12-08 05:19] LABS: Hematocrit 23.0 % (41.0-53.0); Hemoglobin 7.8 g/dL (13.5-17.5); Mean Corpuscular Hemoglobin 29.5 pg (28.0-32.0); Mean Corpuscular Volume 87.0 fL (80.0-100.0); Nucleated Red Blood Cells % 0.1 %
[2024-12-08 05:35] LABS: Albumin 3.8 g/dL (3.2-4.8); Anion Gap 15 (5-15); BUN/Creatinine Ratio 13.5 (10.0-20.0); Calcium 9.2 mg/dL (8.7-10.4); Carbon Dioxide 25 mmol/L (20-31); Chloride 100 mmol/L (98-107); Magnesium 2.1 mg/dL (1.6-2.6); Potassium 4.4 mmol/L (3.5-5.1); Sodium 140 mmol/L (136-145); Total Protein 6.6 g/dL (5.7-8.2)
[2024-12-08 05:36] LABS: Alanine Aminotransferase 62 U/L (7-40); Alkaline Phosphatase 177 U/L (46-116); Bilirubin, Total 1.3 mg/dL (0.2-1.0); Blood Urea Nitrogen 57 mg/dL (9-23); Glucose 109 mg/dL (74-106)
[2024-12-08] MEDS: ALBUMIN 25% 100 ML IV PRN (10:29)
--- NOTE | 2024-12-08 12:09 | DVHPN2 ---
Progress Note - Dictate Date Seen: Dec 08, 2024 Medical Necessity Reason Pt with a Central, PICC or Fol: Yes The following are medically ne: Ashraf Catheter vital signs Vital Sign Date Time Temp Pulse Resp B/P (MAP) Pulse Ox O2 Delivery O2 Flow Rate FiO2 12/08/24 11:00 105 20 109/45 (66) 97 12/08/24 10:42 Nasal Cannula* 1 24 12/08/24 08:00 99.4 99.4 Total Intake and Output 12/07/24 12/07/24 12/08/24 15:00 23:00 07:00 Intake Total 50 ml 0 ml Output Total 150 ml 200 ml Balance 50 ml -150 ml -200 ml medications Current Medications Medications Dose Ordered Sig/Delfino Route Start Time Stop Time Status Last Admin Dose Admin Amlodipine Besylate 10 mg DAILY PO 11/22/24 10:00 11/25/24 10:19 10 MG Hydralazine HCl 10 mg Q4HP PRN IV 11/23/24 09:15 12/08/24 05:51 10 MG Pantoprazole Sodium 40 mg BID IV 11/23/24 22:00 12/07/24 22:43 40 MG Sucralfate 1 gm BID PO 11/25/24 22:00 Diagnostic Test (Pha) 1 strip Q6HR 11/25/24 18:00 12/08/24 05:52 1 STRIP Insulin Human Regular FOLLOW SLIDING SCALE Q6HR SC 11/25/24 18:00 12/06/24 12:39 2 UNITS Dextrose 50 ml UD IV 11/25/24 17:15 Atorvastatin Calcium 40 mg HS PO 11/26/24 22:00 Amiodarone HCl 200 mg Q12HR PO 11/28/24 22:00 Metoprolol Tartrate 1.25 mg Q6HPRN PRN IV 11/28/24 18:30 Amino Acids 0 ml @ 0 mls/hr PER PHARMACY IV 11/30/24 15:15 Hold Epoetin Rolando-epbx 4,000 unit MWF [place] 12/01/24 14:00 UNV Enteral Nutritional Formula 1,000 ml 40ML/HR NG 12/02/24 18:00 Fat Emulsion Intravenous 150 ml/Sodium Chloride 40 meq/ Potassium Chloride 20 meq/ Multivitamins 10 ml/Chromium/ Copper/Manganese/ Zinc 1 ml/Amino Acids/Dextrose/ Purified Water 1,431 ml @ 59 mls/hr [id number] IV 12/03/24 22:00 12/04/24 21:59 Cancel Ipratropium [place] 0.5 mg Q4HR NEB 12/05/24 01:00 12/08/24 10:41 0.5 MG Furosemide 20 mg DAILY IV 12/06/24 10:00 12/06/24 10:42 20 MG Aspirin 300 mg DAILY [place] 12/06/24 10:00 Iron Sucrose 110 ml @ 110 mls/hr DAILY@1200 IV 12/06/24 12:00 12/10/24 12:59 12/07/24 12:17 110 MLS/HR Epoetin Rolando-epbx 6,000 unit MWF@2100 SC 12/08/24 21:00 Amino Acids 0 ml @ 0 mls/hr PER PHARMACY IV 12/07/24 22:00 Amino Acids/ Electrolytes/ Dextrose 1,000 ml @ 41 mls/hr DAILY@2200 IV 12/07/24 22:00 Albumin Human 100 ml @ 100 mls/hr Q1HP PRN IV 12/08/24 10:15 12/08/24 10:29 100 MLS/HR laboratory and microbiology Laboratory Tests 12/08/24 05:09 Test 12/08/24 05:09 Range/Units Serum Glucose 109 H 74-106 mg/dL Assessment/Plan Acute hypoxemic respiratory failure Noninvasive ventilation Respiratory alkalosis pleural effusion atelectases pneumonia End-stage renal disease hemodialysis The patient is seen and examined on Abram events s/p HD some improvement in lung aeration pt on bipap overnight transitioned to nasal 02 this morning ABG reviewed labs and Imaging Reviewed Management plan continue supportive care 02 s needed keep sats above 90% bipap prn for increased work of breathing Dialysis per Nephrology with fluid removal Bronchodilators NPO in view of risk For aspiration TPN for nutrition Broad-spectrum antibiotics for pneumonia Prognosis very poor in view of multiple comorbidities Critical care time 35 minutes Dietary Evaluation Review Comments: 1) Nepro Carbsteady 240ml TID 2) Consider renal standard diet 3) Monitor PO intake, lab values, weight trend, and I/O Expected Outcomes/Goals: To meet >75% estimated needs lab values to improve Fu 3-5 days Plan discussed with: Patient CC Plasma Assessment Blood Product Administration S: [id number] TORSTEN GREEN MD Dec 08, 2024 12:09
--- NOTE | 2024-12-08 15:18 | DVHPN2 ---
Subjective Patient is more awake alert, we will get another swallow evaluation, otherwise scheduled for possible PEG tube placement on Sunday. There is no family member at bedside. Patient is still has a sitter. Changes from previous H/P or p: No Changes Objective Vitals Vital Signs Date Time Temp Pulse Resp B/P (MAP) Pulse Ox O2 Delivery O2 Flow Rate FiO2 12/08/24 14:17 98 19 99 12/08/24 14:12 Nasal Cannula 1.0 12/08/24 14:12 24 12/08/24 12:30 129/47 (74) 12/08/24 12:00 98.2 98.2 Intake/Output Intake and Output 12/08/24 07:00 Intake Total 50 ml Output Total 350 ml Balance -300 ml Intake Oral 0 ml IV Total 50 ml Output Urine Total 300 ml Stool Total 50 ml Exam HEENT pupils are reactive Neck is supple CV is S1-S2 regular rate and rhythm Respiratory diminished breath sounds bases GI positive bowel sound , positive colostomy Extremity no edema [employer] left-sided hemiplegia. Medications Current Medications Medications Dose Ordered Sig/Delfino Route Start Time Stop Time Status Last Admin Dose Admin Amlodipine Besylate 10 mg DAILY PO 11/22/24 10:00 11/25/24 10:19 10 MG Hydralazine HCl 10 mg Q4HP PRN IV 11/23/24 09:15 12/08/24 05:51 10 MG Pantoprazole Sodium 40 mg BID IV 11/23/24 22:00 12/08/24 12:01 40 MG Sucralfate 1 gm BID PO 11/25/24 22:00 Diagnostic Test (Pha) 1 strip Q6HR 11/25/24 18:00 12/08/24 12:10 1 STRIP Insulin Human Regular FOLLOW SLIDING SCALE Q6HR SC 11/25/24 18:00 12/06/24 12:39 2 UNITS Dextrose 50 ml UD IV 11/25/24 17:15 Atorvastatin Calcium 40 mg HS PO 11/26/24 22:00 Amiodarone HCl 200 mg Q12HR PO 11/28/24 22:00 Metoprolol Tartrate 1.25 mg Q6HPRN PRN IV 11/28/24 18:30 Epoetin Rolando-epbx 4,000 unit MWF [place] 12/01/24 14:00 UNV Enteral Nutritional Formula 1,000 ml 40ML/HR NG 12/02/24 18:00 Fat Emulsion Intravenous 150 ml/Sodium Chloride 40 meq/ Potassium Chloride 20 meq/ Multivitamins 10 ml/Chromium/ Copper/Manganese/ Zinc 1 ml/Amino Acids/Dextrose/ Purified Water 1,431 ml @ 59 mls/hr [id number] IV 12/03/24 22:00 12/04/24 21:59 Cancel Ipratropium [place] 0.5 mg Q4HR NEB 12/05/24 01:00 12/08/24 14:12 0.5 MG Furosemide 20 mg DAILY IV 12/06/24 10:00 12/06/24 10:42 20 MG Aspirin 300 mg DAILY [place] 12/06/24 10:00 Iron Sucrose 110 ml @ 110 mls/hr DAILY@1200 IV 12/06/24 12:00 12/10/24 12:59 12/08/24 12:01 110 MLS/HR Epoetin Rolando-epbx 6,000 unit MWF@2100 [place] 12/08/24 21:00 Amino Acids 0 ml @ 0 mls/hr PER PHARMACY IV 12/07/24 22:00 Amino Acids/ Electrolytes/ Dextrose 1,000 ml @ 41 mls/hr DAILY@2200 IV 12/07/24 22:00 Albumin Human 100 ml @ 100 mls/hr Q1HP PRN IV 12/08/24 10:15 12/08/24 10:29 100 MLS/HR Laboratory Results Laboratory Tests 12/08/24 05:09 Chemistry Test 12/08/24 05:09 Albumin 3.8 g/dL (3.2-4.8) Calcium Level 9.2 mg/dL (8.7-10.4) Magnesium Level 2.1 mg/dL (1.6-2.6) Phosphorus Level 4.3 mg/dL (2.4-5.1) Total Protein 6.6 g/dL (5.7-8.2) LFT Test 12/08/24 05:09 Alanine Aminotransferase (ALT) 62 U/L (7-40) H Alkaline Phosphatase 177 U/L (46-116) H Aspartate Amino Transferase (AST) 91 U/L (13-40) H Total Bilirubin 1.3 mg/dL (0.2-1.0) H Urinalysis Test 11/23/24 05:50 11/25/24 09:23 Urine Amorphous Crystals Few /hpf (None Seen) Urine Color Light-brown (Yellow) Urine Clarity Turbid (Clear) H Urine pH 8.5 (5.0-9.0) Urine Specific [place] 1.011 (1.001-1.035) Urine Protein 3+ (Negative) H Urine Ketones Trace (Negative) Urine Blood 3+ /uL (Negative) H Urine Nitrite Negative (Negative) Urine Bilirubin Negative (Negative) Urine Urobilinogen Normal mg/dL (Negative) Urine Leukocyte Esterase 3+ /uL (Negative) Urine RBC 2271 /hpf (0 - 3) Urine WBC Clumps Present /hpf (None Seen) Urine Microscopic WBC 312 /HPF (0-3) H Urine Squamous Epithelial Cells None seen /hpf (<5) Urine Bacteria None seen /hpf (None Seen) Urine Glucose Trace mg/dL (Normal) Blood Gas Results Test 12/07/24 18:42 Arterial Blood pH 7.546 (7.350-7.450) FiO2 % 100.0 Microbiology Microbiology Date/Time Source Procedure Growth Status 12/07/24 22:00 Nose MRSA Screen - Final Complete 11/25/24 09:23 Urine - Midstream Clean Catch Urine Culture - Final Complete Assessment/Plan Assessment/Plan 78-year-old male with a known history of colon cancer status post partial colectomy status post oral chemotherapy currently in remission, end-stage renal disease on hemodialysis, hypertension, COPD initially presented to hospital with a black tarry stools found to have 1. Acute/subacute right MCA with left-sided hemiplegia 2. Acute delirium/acute encephalopathy suspect secondary to acute CVA 3.Melanotic stools rule out upper GI bleed, status post EGD showed gastro duodenitis 4. History of colon cancer status post partial colectomy status post chemotherapy, status post colostomy 5. End-stage renal disease on hemodialysis 6.. Hypertension 7. COPD 8. Failed swallow evaluation, multiple times -hold aspirin for PEG tube placement on Sunday, please get a repeat swallow evaluation before PEG tube placement -continue Protonix Carafate, -currently TPN is off -no family member at bedside today, aspiration and fall precaution and pressure ulcer precautions. Plan discussed with: Patient, Other My Orders Orders - BRIE BOLAND MD Procedure Category Date Status Time Chest Portable XY 12/07/24 Resulted 18:20 Magnesium LAB 12/09/24 Verified 04:00 Phosphorus LAB 12/09/24 Verified 04:00 Comprehensive LAB 12/09/24 Verified Metabolic Panel 04:00 Transfer Orders XFER 12/08/24 Transmitted 12:28 Date of Service: Dec 08, 2024 Billing Provider: BRIE BOLAND MD Common Visit Codes: [id number] INP/OBS CARE(MOD) BRIE BOLAND MD Dec 08, 2024 15:18
--- NOTE | 2024-12-08 17:00 | DVHPN2 ---
Progress Note Date Seen: Dec 08, 2024 Resident Creating Document: ROBLES SWEENEY RESIDENT Has the PT tested + for MRSA If YES, has PT been informed?: No Medical Necessity Reason Pt with a Central, PICC or Fol: Yes The following are medically ne: Ashraf Catheter Subjective Review of Systems 78-year-old male with a history of colon cancer (s/p partial colectomy, chemotherapy, and colostomy), ESRD on hemodialysis, COPD, hypertension, dyslipidemia, and recent acute right MCA infarction with resultant left-sided hemiparesis and altered mental status. The patient's neurological status is improving, patient is more awake and communicating. Pending swallow evaluation tomorrow. Colostomy output is 50 mL the patient is currently receiving TPN and is NPO patient underwent hemodialysis today. Objective vital signs Vital Sign Date Time Temp Pulse Resp B/P (MAP) Pulse Ox O2 Delivery O2 Flow Rate FiO2 12/08/24 16:00 104 12/08/24 14:17 19 99 12/08/24 14:12 Nasal Cannula 1.0 12/08/24 14:12 24 12/08/24 12:30 129/47 (74) 12/08/24 12:00 98.2 98.2 Total Intake and Output 12/07/24 12/07/24 12/08/24 15:00 23:00 07:00 Intake Total 50 ml 0 ml Output Total 150 ml 200 ml Balance 50 ml -150 ml -200 ml medications Current Medications Medications Dose Ordered Sig/Delfino Route Start Time Stop Time Status Last Admin Dose Admin Amlodipine Besylate 10 mg DAILY PO 11/22/24 10:00 11/25/24 10:19 10 MG Hydralazine HCl 10 mg Q4HP PRN IV 11/23/24 09:15 12/08/24 05:51 10 MG Pantoprazole Sodium 40 mg BID IV 11/23/24 22:00 12/08/24 12:01 40 MG Sucralfate 1 gm BID PO 11/25/24 22:00 Diagnostic Test (Pha) 1 strip Q6HR 11/25/24 18:00 12/08/24 12:10 1 STRIP Insulin Human Regular FOLLOW SLIDING SCALE Q6HR SC 11/25/24 18:00 12/06/24 12:39 2 UNITS Dextrose 50 ml UD IV 11/25/24 17:15 Atorvastatin Calcium 40 mg HS PO 11/26/24 22:00 Amiodarone HCl 200 mg Q12HR PO 11/28/24 22:00 Metoprolol Tartrate 1.25 mg Q6HPRN PRN IV 11/28/24 18:30 Epoetin Rolando-epbx 4,000 unit MWF [place] 12/01/24 14:00 UNV Enteral Nutritional Formula 1,000 ml 40ML/HR NG 12/02/24 18:00 Fat Emulsion Intravenous 150 ml/Sodium Chloride 40 meq/ Potassium Chloride 20 meq/ Multivitamins 10 ml/Chromium/ Copper/Manganese/ Zinc 1 ml/Amino Acids/Dextrose/ Purified Water 1,431 ml @ 59 mls/hr [id number] IV 12/03/24 22:00 12/04/24 21:59 Cancel Ipratropium [place] 0.5 mg Q4HR NEB 12/05/24 01:00 12/08/24 14:12 0.5 MG Furosemide 20 mg DAILY IV 12/06/24 10:00 12/06/24 10:42 20 MG Aspirin 300 mg DAILY [place] 12/06/24 10:00 Iron Sucrose 110 ml @ 110 mls/hr DAILY@1200 IV 12/06/24 12:00 12/10/24 12:59 12/08/24 12:01 110 MLS/HR Epoetin Rolando-epbx 6,000 unit MWF@2100 [place] 12/08/24 21:00 Amino Acids 0 ml @ 0 mls/hr PER PHARMACY IV 12/07/24 22:00 Amino Acids/ Electrolytes/ Dextrose 1,000 ml @ 41 mls/hr DAILY@2200 IV 12/07/24 22:00 Albumin Human 100 ml @ 100 mls/hr Q1HP PRN IV 12/08/24 10:15 12/08/24 10:29 100 MLS/HR Examination General: Alert, oriented more awake * Abdomen: Soft, mildly tender LUQ, non-distended, bowel sounds present. Colostomy bag intact, minimal output, midline scar * Cardiovascular: Regular rhythm, mild tachycardia. * Pulmonary: Clear to auscultation with bibasilar crackles. * Other: Stable. laboratory and microbiology Laboratory Tests 12/08/24 05:09 Test 12/08/24 05:09 Range/Units Serum Glucose 109 H 74-106 mg/dL Microbiology Date/Time Source Procedure Growth Status 12/07/24 22:00 Nose MRSA Screen - Final Complete 11/25/24 09:23 Urine - Midstream Clean Catch Urine Culture - Final Complete Problem List/Assessment/Plan Problem List/Assessment/Plan Assessment 1. Upper GI bleed with melena resolved; no current bleeding. 2. Gastroduodenitis continue PPI and Carafate. 3. Severe anemia (multifactorial, prior GI loss and CKD) stable post- transfusion. 4. Parastomal hernia stable, no obstruction. 6. ESRD on HD continue scheduled dialysis. 7. Acute right MCA stroke with dysphagia managed by neurology. 8. Atrial fibrillation (now sinus rhythm on amiodarone) 9. Severe Protein-Calorie Malnutrition * Due to inability to tolerate oral/enteral nutrition, failed NG placement, failed swallow evaluation * Currently on parenteral nutrition via Clinimix * PEG placement scheduled 10. Dysphagia and Feeding Intolerance * Due to post-stroke aphasia and poor gag/swallow reflex * Failed repeat swallow evaluation * Requires PEG for long-term feeding 11.4. Elevated Liver Enzymes * Downtrending * Likely secondary to TPN, hepatic congestion, or ESRD * Continue to monitor LFTs Plan Gastrointestinal / Nutrition There was a plan to repeat his swallow evaluation over the next 24-48 hours EGD WITH A PEG TUBE WILL BE DEFERRED UNTIL THE SWALLOW EVALUATION HAS BEEN TRIED Patient is high-risk floor having a PEG tube because of midline scar and already pre-existing left lower quadrant colostomy which could be a source of contamination for the PEG tube site * Continue TPN * Maintain NPO status * PEG tube scheduled for SUNDAY * Monitor abdominal exam, colostomy output * Monitor LFTs and electrolytes daily Hematology * Monitor CBC daily * No current signs of bleeding RESUME ASPIRIN AGAIN TODAY * Hold anticoagulation ON SUNDAY EVENING UNTIL post-PEG placement * Maintain transfusion threshold Hgb <7 unless symptomatic Neurologic * Aphasia and non-verbal state post-stroke * High aspiration risk. PEG feeding * Continue supportive care, neuro re-eval not indicated unless mental status changes Infectious Disease / Antibiotics * Continue ceftriaxone pending ID re-evaluation * MRSA/urine/blood cultures negative Disposition * Awaiting PEG placement * SNF vs hospice under discussion * Family and PCP engaged in shared decision-making WE WILL CLOSELY MONITOR THIS PATIENT Case discussed in detail with the attending physician, including the clinical presentation, diagnostic workup, and comprehensive management plan. Plan discussed with: Other (RN) Dietary Evaluation Review Comments: 1) Nepro Carbsteady 240ml TID 2) Consider renal standard diet 3) Monitor PO intake, lab values, weight trend, and I/O Expected Outcomes/Goals: To meet >75% estimated needs lab values to improve Fu 3-5 days CC Plasma Assessment Blood Product Administration S: [id number] ROBLES SWEENEY RESIDENT Dec 08, 2024 17:00
[2024-12-08] MEDS: ACETAMINOPHEN IV 1000 MG/100ML (10MG/ML) IV PRN (17:17)
--- NOTE | 2024-12-08 20:56 | DVHPN2 ---
Progress Note Date Seen: Dec 08, 2024 Has the PT tested + for MRSA If YES, has PT been informed?: No Medical Necessity Reason Pt with a Central, PICC or Fol: Yes The following are medically ne: Ashraf Catheter Subjective Patient reports: Other (weak) Review of Systems: Deferred Objective vital signs Vital Sign Date Time Temp Pulse Resp B/P (MAP) Pulse Ox O2 Delivery O2 Flow Rate FiO2 12/08/24 19:23 84 18 100 12/08/24 19:18 Nasal Cannula 1.0 12/08/24 19:18 24 12/08/24 16:00 101.1 154/65 (94) 101.1 Total Intake and Output 12/07/24 12/07/24 12/08/24 15:00 23:00 07:00 Intake Total 50 ml 0 ml Output Total 150 ml 200 ml Balance 50 ml -150 ml -200 ml medications Current Medications Medications Dose Ordered Sig/Delfino Route Start Time Stop Time Status Last Admin Dose Admin Amlodipine Besylate 10 mg DAILY PO 11/22/24 10:00 11/25/24 10:19 10 MG Hydralazine HCl 10 mg Q4HP PRN IV 11/23/24 09:15 12/08/24 05:51 10 MG Pantoprazole Sodium 40 mg BID IV 11/23/24 22:00 12/08/24 12:01 40 MG Sucralfate 1 gm BID PO 11/25/24 22:00 Diagnostic Test (Pha) 1 strip Q6HR 11/25/24 18:00 12/08/24 18:13 1 STRIP Insulin Human Regular FOLLOW SLIDING SCALE Q6HR [place] 11/25/24 18:00 12/06/24 12:39 2 UNITS Dextrose 50 ml UD IV 11/25/24 17:15 Atorvastatin Calcium 40 mg HS PO 11/26/24 22:00 Amiodarone HCl 200 mg Q12HR PO 11/28/24 22:00 Metoprolol Tartrate 1.25 mg Q6HPRN PRN IV 11/28/24 18:30 Epoetin Rolando-epbx 4,000 unit MWF [place] 12/01/24 14:00 UNV Enteral Nutritional Formula 1,000 ml 40ML/HR NG 12/02/24 18:00 Fat Emulsion Intravenous 150 ml/Sodium Chloride 40 meq/ Potassium Chloride 20 meq/ Multivitamins 10 ml/Chromium/ Copper/Manganese/ Zinc 1 ml/Amino Acids/Dextrose/ Purified Water 1,431 ml @ 59 mls/hr [id number] IV 12/03/24 22:00 12/04/24 21:59 Cancel Ipratropium [place] 0.5 mg Q4HR NEB 12/05/24 01:00 12/08/24 19:18 0.5 MG Furosemide 20 mg DAILY IV 12/06/24 10:00 12/06/24 10:42 20 MG Aspirin 300 mg DAILY [place] 12/06/24 10:00 Iron Sucrose 110 ml @ 110 mls/hr DAILY@1200 IV 12/06/24 12:00 12/10/24 12:59 12/08/24 12:01 110 MLS/HR Epoetin Rolando-epbx 6,000 unit MWF@2100 [place] 12/08/24 21:00 Amino Acids 0 ml @ 0 mls/hr PER PHARMACY IV 12/07/24 22:00 Amino Acids/ Electrolytes/ Dextrose 1,000 ml @ 41 mls/hr DAILY@2200 IV 12/07/24 22:00 Albumin Human 100 ml @ 100 mls/hr Q1HP PRN IV 12/08/24 10:15 12/08/24 10:29 100 MLS/HR Acetaminophen 1,000 mg Q8H PRN IV 12/08/24 17:15 12/08/24 17:17 1,000 MG Examination: HEENT:Abnormal (slurred speech) laboratory and microbiology Laboratory Tests 12/08/24 05:09 Test 12/08/24 05:09 Range/Units Serum Glucose 109 H 74-106 mg/dL Microbiology Date/Time Source Procedure Growth Status 12/07/24 22:00 Nose MRSA Screen - Final Complete 11/25/24 09:23 Urine - Midstream Clean Catch Urine Culture - Final Complete Problem List/Assessment/Plan Problem List/Assessment/Plan 1. ESRD on HD- 2. HTN 3. hx of COPD 4. Anemia s/p PRBC transfusion CVA fronto parietal recs HD 12/08 peg tube eval ongoing on clinimix as pt cant eat Plan discussed with: Patient My Orders My Orders Orders - GERMAN WATERMAN MD Procedure Category Date Status Time Albumin 25% ([place]) PHA 12/08/24 In Process 10:15 Dietary Evaluation Review Comments: 1) Nepro Carbsteady 240ml TID 2) Consider renal standard diet 3) Monitor PO intake, lab values, weight trend, and I/O Expected Outcomes/Goals: To meet >75% estimated needs lab values to improve Fu 3-5 days CC Plasma Assessment Blood Product Administration S: [id number] GERMAN WATERMAN MD Dec 08, 2024 20:56
[2024-12-08] MEDS: EPOETIN ALFA-EPBX 10,000 UNIT/1ML VIAL SC SCH (20:59)
[2024-12-08] MEDS: METOPROLOL TARTRATE 1MG/1ML-5ML VIAL IV PRN (22:01)
--- NOTE | 2024-12-08 22:15 | DVHPN2 ---
Progress Note Date Seen: Dec 08, 2024 Has the PT tested + for MRSA If YES, has PT been informed?: No Medical Necessity Reason Pt with a Central, PICC or Fol: Yes The following are medically ne: Ashraf Catheter Objective vital signs Vital Sign Date Time Temp Pulse Resp B/P (MAP) Pulse Ox O2 Delivery O2 Flow Rate FiO2 12/08/24 22:01 90 169/55 12/08/24 19:23 18 100 12/08/24 19:18 Nasal Cannula 1.0 12/08/24 19:18 24 12/08/24 16:00 101.1 101.1 Total Intake and Output 12/07/24 12/07/24 12/08/24 15:00 23:00 07:00 Intake Total 50 ml 0 ml Output Total 150 ml 200 ml Balance 50 ml -150 ml -200 ml medications Current Medications Medications Dose Ordered Sig/Delfino Route Start Time Stop Time Status Last Admin Dose Admin Amlodipine Besylate 10 mg DAILY PO 11/22/24 10:00 11/25/24 10:19 10 MG Hydralazine HCl 10 mg Q4HP PRN IV 11/23/24 09:15 12/08/24 05:51 10 MG Pantoprazole Sodium 40 mg BID IV 11/23/24 22:00 12/08/24 22:00 40 MG Sucralfate 1 gm BID PO 11/25/24 22:00 Diagnostic Test (Pha) 1 strip Q6HR 11/25/24 18:00 12/08/24 18:13 1 STRIP Insulin Human Regular FOLLOW SLIDING SCALE Q6HR SC 11/25/24 18:00 12/06/24 12:39 2 UNITS Dextrose 50 ml UD IV 11/25/24 17:15 Atorvastatin Calcium 40 mg HS PO 11/26/24 22:00 Amiodarone HCl 200 mg Q12HR PO 11/28/24 22:00 Metoprolol Tartrate 1.25 mg Q6HPRN PRN IV 11/28/24 18:30 12/08/24 22:01 1.25 MG Epoetin Rolando-epbx 4,000 unit MWF [place] 12/01/24 14:00 UNV Enteral Nutritional Formula 1,000 ml 40ML/HR NG 12/02/24 18:00 Fat Emulsion Intravenous 150 ml/Sodium Chloride 40 meq/ Potassium Chloride 20 meq/ Multivitamins 10 ml/Chromium/ Copper/Manganese/ Zinc 1 ml/Amino Acids/Dextrose/ Purified Water 1,431 ml @ 59 mls/hr [id number] IV 12/03/24 22:00 12/04/24 21:59 Cancel Ipratropium [place] 0.5 mg Q4HR NEB 12/05/24 01:00 12/08/24 19:18 0.5 MG Furosemide 20 mg DAILY IV 12/06/24 10:00 12/06/24 10:42 20 MG Aspirin 300 mg DAILY [place] 12/06/24 10:00 Iron Sucrose 110 ml @ 110 mls/hr DAILY@1200 IV 12/06/24 12:00 12/10/24 12:59 12/08/24 12:01 110 MLS/HR Epoetin Rolando-epbx 6,000 unit MWF@2100 [place] 12/08/24 21:00 12/08/24 20:59 6,000 UNIT Amino Acids 0 ml @ 0 mls/hr PER PHARMACY IV 12/07/24 22:00 Amino Acids/ Electrolytes/ Dextrose 1,000 ml @ 41 mls/hr DAILY@2200 IV 12/07/24 22:00 12/08/24 22:01 41 MLS/HR Albumin Human 100 ml @ 100 mls/hr Q1HP PRN IV 12/08/24 10:15 12/08/24 10:29 100 MLS/HR Acetaminophen 1,000 mg Q8H PRN IV 12/08/24 17:15 12/08/24 17:17 1,000 MG laboratory and microbiology Laboratory Tests 12/08/24 05:09 Test 12/08/24 05:09 Range/Units Serum Glucose 109 H 74-106 mg/dL Microbiology Date/Time Source Procedure Growth Status 12/07/24 22:00 Nose MRSA Screen - Final Complete 11/25/24 09:23 Urine - Midstream Clean Catch Urine Culture - Final Complete Problem List/Assessment/Plan Problem List/Assessment/Plan AFEBRILE VSS ABD SOFT CONSIDER REPEAT SWALLOW EVAL AGAIN HIGH RISK FOR PEG PLACEMENT AND OPEN SURGERY TRANSFERRED TO ANH DUE TO HEMODYNAMIC INSTABILITY Plan discussed with: Patient, Other Dietary Evaluation Review Comments: 1) Nepro Carbsteady 240ml TID 2) Consider renal standard diet 3) Monitor PO intake, lab values, weight trend, and I/O Expected Outcomes/Goals: To meet >75% estimated needs lab values to improve Fu 3-5 days CC Plasma Assessment Blood Product Administration S: [id number] ZAHRAA NATION MD Dec 08, 2024 22:15
--- NOTE | 2024-12-08 23:09 | DVHPN2 ---
Progress Note - Dictate Date Seen: Dec 08, 2024 Has the PT tested + for MRSA If YES, has PT been informed?: No Medical Necessity Reason Pt with a Central, PICC or Fol: Yes The following are medically ne: Ashraf Catheter Subjective Mr. Akbar is a 78 years old gentleman with a history of hypertension, dyslipidemia, COPD, end-stage kidney failure on hemodialysis, colon cancer status post colostomy, he was brought to the [facility] on 11/21/2024 with a chief company of general weakness and dark stool. I have seen and examined the patient in ICU. I have talked to his nurse, he is trying for the ICU because of desaturation, hypotension during hemodialysis, but in the ICU, the patient has had a lot of improvement, especially mental status He is awake, he talks more, he is oriented to person only He moves the right arm, both legs, but not the left arm. He may still not able to see his left side Stool occult blood, 11/21/2024: Positive Urinalysis, 11/23/2024: UTI UDS, 11/23/2024: Negative WBC/HB/PLT/MCV, 11/21/2024: 12.3/5.8/267/94.5, 11/25/2024: 11.8/9.9/275/93.6 PT/INR/PTT, 11/21/2024: 13/1.25/41.6 BUN/CR, 11/26/2024: 53/6.41 HGB A1c, 11/21/2024: <3.8 TG/HDL/LDL/HDL, 11/27/2024: 203/156/93/21 Vitamin B12, 11/21/2024: 452 TSH, 11/21/2024: 2.27 EKG, 10/3124: AFib Carotid Doppler, 11/26/2024: 1. No hemodynamically significant stenosis noted in the right carotid system. Approximately 50-69 % focal stenosis in the mid right internal carotid artery. 2. No hemodynamically significant stenosis noted in the left carotid system. 3. The vertebral arteries were not visualized. Echocardiogram, 11/27/2024: Sinus rhythm. Concentric LVH with left atrial enlargement and aortic root enlargement. Dilation of the sinuses of Valsalva. Moderate mitral annular calcification of the base of the posterior mitral leaflet. The aortic and tricuspid appear to be structurally normal. Left ventricular systolic performance appears to be preserved. EF is about 55%. There is impaired diastolic relaxation. Normal RV function. There is mild aortic insufficiency. Mild tricuspid regurgitation. No pericardial effusion masses or vegetations. CT head, 11/09/2024: Acute to subacute infarction of the right frontoparietal lobe with thrombus in the right middle cerebral artery M2 segment. Recommend neurology consultation. Moderate chronic microvascular ischemic changes. MRI head, 11/26/2024: Acute infarction right middle cerebral artery distribution involving the right frontal and parietal lobes. Findings consistent with right M2 middle cerebral artery segment occlusion/thrombosis. Moderate chronic microvascular ischemic changes. EGD, 11/25/2024: 1. Minimal gastroduodenitis 2. Otherwise normal examination up to the 2nd and 3rd part of the duodenal with no fresh or old blood in the upper GI tract vital signs Vital Sign Date Time Temp Pulse Resp B/P (MAP) Pulse Ox O2 Delivery O2 Flow Rate FiO2 12/08/24 22:57 95 17 100 12/08/24 22:52 Nasal Cannula* 1 24 12/08/24 22:01 169/55 12/08/24 16:00 101.1 101.1 Total Intake and Output 12/07/24 12/07/24 12/08/24 15:00 23:00 07:00 Intake Total 50 ml 0 ml Output Total 150 ml 200 ml Balance 50 ml -150 ml -200 ml medications Current Medications Medications Dose Ordered Sig/Delfino Route Start Time Stop Time Status Last Admin Dose Admin Amlodipine Besylate 10 mg DAILY PO 11/22/24 10:00 11/25/24 10:19 10 MG Hydralazine HCl 10 mg Q4HP PRN IV 11/23/24 09:15 12/08/24 05:51 10 MG Pantoprazole Sodium 40 mg BID IV 11/23/24 22:00 12/08/24 22:00 40 MG Sucralfate 1 gm BID PO 11/25/24 22:00 Diagnostic Test (Pha) 1 strip Q6HR 11/25/24 18:00 12/08/24 18:13 1 STRIP Insulin Human Regular FOLLOW SLIDING SCALE Q6HR SC 11/25/24 18:00 12/06/24 12:39 2 UNITS Dextrose 50 ml UD IV 11/25/24 17:15 Atorvastatin Calcium 40 mg HS PO 11/26/24 22:00 Amiodarone HCl 200 mg Q12HR PO 11/28/24 22:00 Metoprolol Tartrate 1.25 mg Q6HPRN PRN IV 11/28/24 18:30 12/08/24 22:01 1.25 MG Epoetin Rolando-epbx 4,000 unit MWF [place] 12/01/24 14:00 UNV Enteral Nutritional Formula 1,000 ml 40ML/HR NG 12/02/24 18:00 Fat Emulsion Intravenous 150 ml/Sodium Chloride 40 meq/ Potassium Chloride 20 meq/ Multivitamins 10 ml/Chromium/ Copper/Manganese/ Zinc 1 ml/Amino Acids/Dextrose/ Purified Water 1,431 ml @ 59 mls/hr [id number] IV 12/03/24 22:00 12/04/24 21:59 Cancel Ipratropium [place] 0.5 mg Q4HR NEB 12/05/24 01:00 12/08/24 22:52 0.5 MG Furosemide 20 mg DAILY IV 12/06/24 10:00 12/06/24 10:42 20 MG Aspirin 300 mg DAILY [place] 12/06/24 10:00 Iron Sucrose 110 ml @ 110 mls/hr DAILY@1200 IV 12/06/24 12:00 12/10/24 12:59 12/08/24 12:01 110 MLS/HR Epoetin Rolando-epbx 6,000 unit MWF@2100 [place] 12/08/24 21:00 12/08/24 20:59 6,000 UNIT Amino Acids 0 ml @ 0 mls/hr PER PHARMACY IV 12/07/24 22:00 Amino Acids/ Electrolytes/ Dextrose 1,000 ml @ 41 mls/hr DAILY@2200 IV 12/07/24 22:00 12/08/24 22:01 41 MLS/HR Albumin Human 100 ml @ 100 mls/hr Q1HP PRN IV 12/08/24 10:15 12/08/24 10:29 100 MLS/HR Acetaminophen 1,000 mg Q8H PRN IV 12/08/24 17:15 12/08/24 17:17 1,000 MG objective General: the patient is well developed and nourished. No acute distress. MENTAL STATUS: Subjective SPEECH, LANGUAGE, HIGHER CORTICAL FUNCTION: Subjective CRANIAL NERVES: He might have left homonymous hemianopsia. Pupils are equal, round and reactive. EOMs full and conjugate. Facial sensation intact in all three divisions bilaterally. Mandibular strength intact. Facial muscles symmetrical and strength intact. SENSATION: Sensation to touch and pinprick is unremarkable MOTOR: Normal tone in the upper and lower extremity. Normal muscle bulk. No fasciculations. No abnormal movements or posturing. He moves the right arm, and legs REFLEXES: Deep tendon reflexes are symmetrical. 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 Protonix 40 mg b.i.d. Nephrology on case/hemodialysis GI specialist on case More recommendation per clinical course This medical document was created using an electronic medical record system with [employer] dictation system. Although this document has been carefully reviewed, there may still be some phonetic and typographical errors. These areas are purely typographical due to imperfections of the software programs, and do not reflect any compromise in the patient's medical care. Prognosis poor, critical Dietary Evaluation Review Comments: 1) Nepro Carbsteady 240ml TID 2) Consider renal standard diet 3) Monitor PO intake, lab values, weight trend, and I/O Expected Outcomes/Goals: To meet >75% estimated needs lab values to improve Fu 3-5 days Plan discussed with: Other CC Plasma Assessment Blood Product Administration S: [id number] PATSY SALGADO MD Dec 08, 2024 23:09
[2024-12-09] VITALS (28 sets, daily range): BP systolic 112–178; BP diastolic 35–78; PULSE 90–126; RESP 15–26; TEMP 98.4–99.8; O2SAT 92–100
[2024-12-09 05:34] LABS: Albumin 4.2 g/dL (3.2-4.8); Anion Gap 14 (5-15); BUN/Creatinine Ratio 12.5 (10.0-20.0); Calcium 9.8 mg/dL (8.7-10.4); Carbon Dioxide 28 mmol/L (20-31); Chloride 100 mmol/L (98-107); Magnesium 2.2 mg/dL (1.6-2.6); Potassium 3.7 mmol/L (3.5-5.1); Sodium 142 mmol/L (136-145); Total Protein 7.3 g/dL (5.7-8.2)
[2024-12-09 05:37] LABS: Alanine Aminotransferase 45 U/L (7-40); Alkaline Phosphatase 163 U/L (46-116); Bilirubin, Total 1.5 mg/dL (0.2-1.0); Blood Urea Nitrogen 46 mg/dL (9-23); Glucose 149 mg/dL (74-106)
--- NOTE | 2024-12-09 10:50 | DVHPN2 ---
Progress Note - Dictate Date Seen: Dec 09, 2024 Has the PT tested + for MRSA If YES, has PT been informed?: No Medical Necessity Reason Pt with a Central, PICC or Fol: Yes The following are medically ne: Ashraf Catheter Subjective Mr. Akbar is a 78 years old gentleman with a history of hypertension, dyslipidemia, COPD, end-stage kidney failure on hemodialysis, colon cancer status post colostomy, he was brought to the [facility] on 11/21/2024 with a chief company of general weakness and dark stool. I have seen and examined the patient. I have talked to his nurse, he is awake, oriented to person, he thinks he is in the dialysis center, he follows some verbal commands He likely has left homonymous hemianopsia, he does not move the left arm He was transferred to the ICU for desaturation, hypotension during hemodialysis, but in the ICU, the patient has had a lot of improvement, especially mental status Stool occult blood, 11/21/2024: Positive Urinalysis, 11/23/2024: UTI UDS, 11/23/2024: Negative WBC/HB/PLT/MCV, 11/21/2024: 12.3/5.8/267/94.5, 11/25/2024: 11.8/9.9/275/93.6 PT/INR/PTT, 11/21/2024: 13/1.25/41.6 BUN/CR, 11/26/2024: 53/6.41 HGB A1c, 11/21/2024: <3.8 TG/HDL/LDL/HDL, 11/27/2024: 203/156/93/21 Vitamin B12, 11/21/2024: 452 TSH, 11/21/2024: 2.27 EKG, 10/3124: AFib Carotid Doppler, 11/26/2024: 1. No hemodynamically significant stenosis noted in the right carotid system. Approximately 50-69 % focal stenosis in the mid right internal carotid artery. 2. No hemodynamically significant stenosis noted in the left carotid system. 3. The vertebral arteries were not visualized. Echocardiogram, 11/27/2024: Sinus rhythm. Concentric LVH with left atrial enlargement and aortic root enlargement. Dilation of the sinuses of Valsalva. Moderate mitral annular calcification of the base of the posterior mitral leaflet. The aortic and tricuspid appear to be structurally normal. Left ventricular systolic performance appears to be preserved. EF is about 55%. There is impaired diastolic relaxation. Normal RV function. There is mild aortic insufficiency. Mild tricuspid regurgitation. No pericardial effusion masses or vegetations. CT head, 11/09/2024: Acute to subacute infarction of the right frontoparietal lobe with thrombus in the right middle cerebral artery M2 segment. Recommend neurology consultation. Moderate chronic microvascular ischemic changes. MRI head, 11/26/2024: Acute infarction right middle cerebral artery distribution involving the right frontal and parietal lobes. Findings consistent with right M2 middle cerebral artery segment occlusion/thrombosis. Moderate chronic microvascular ischemic changes. EGD, 11/25/2024: 1. Minimal gastroduodenitis 2. Otherwise normal examination up to the 2nd and 3rd part of the duodenal with no fresh or old blood in the upper GI tract vital signs Vital Sign Date Time Temp Pulse Resp B/P (MAP) Pulse Ox O2 Delivery O2 Flow Rate FiO2 12/09/24 10:37 97 Nasal Cannula 2.0 12/09/24 10:37 116 18 12/09/24 10:37 28 12/09/24 02:00 133/35 (67) 12/09/24 00:00 98.5 98.5 Total Intake and Output 12/08/24 12/08/24 12/09/24 15:00 23:00 07:00 Intake Total 210 ml 41 ml 246 ml Output Total 175 ml 150 ml Balance 210 ml -134 ml 96 ml medications Current Medications Medications Dose Ordered Sig/Delfino Route Start Time Stop Time Status Last Admin Dose Admin Amlodipine Besylate 10 mg DAILY PO 11/22/24 10:00 11/25/24 10:19 10 MG Hydralazine HCl 10 mg Q4HP PRN IV 11/23/24 09:15 12/09/24 00:11 10 MG Pantoprazole Sodium 40 mg BID IV 11/23/24 22:00 12/08/24 22:00 40 MG Sucralfate 1 gm BID PO 11/25/24 22:00 Diagnostic Test (Pha) 1 strip Q6HR 11/25/24 18:00 12/09/24 06:12 1 STRIP Insulin Human Regular FOLLOW SLIDING SCALE Q6HR SC 11/25/24 18:00 12/09/24 06:01 2 UNITS Dextrose 50 ml UD IV 11/25/24 17:15 Atorvastatin Calcium 40 mg HS PO 11/26/24 22:00 Amiodarone HCl 200 mg Q12HR PO 11/28/24 22:00 Metoprolol Tartrate 1.25 mg Q6HPRN PRN IV 11/28/24 18:30 12/08/24 22:01 1.25 MG Epoetin Rolando-epbx 4,000 unit MWF [place] 12/01/24 14:00 UNV Enteral Nutritional Formula 1,000 ml 40ML/HR NG 12/02/24 18:00 Fat Emulsion Intravenous 150 ml/Sodium Chloride 40 meq/ Potassium Chloride 20 meq/ Multivitamins 10 ml/Chromium/ Copper/Manganese/ Zinc 1 ml/Amino Acids/Dextrose/ Purified Water 1,431 ml @ 59 mls/hr [id number] IV 12/03/24 22:00 12/04/24 21:59 Cancel Ipratropium [place] 0.5 mg Q4HR NEB 12/05/24 01:00 12/09/24 10:36 0.5 MG Furosemide 20 mg DAILY IV 12/06/24 10:00 12/06/24 10:42 20 MG Aspirin 300 mg DAILY [place] 12/06/24 10:00 Iron Sucrose 110 ml @ 110 mls/hr DAILY@1200 IV 12/06/24 12:00 12/10/24 12:59 12/08/24 12:01 110 MLS/HR Epoetin Rolando-epbx 6,000 unit MWF@2100 [place] 12/08/24 21:00 12/08/24 20:59 6,000 UNIT Amino Acids 0 ml @ 0 mls/hr PER PHARMACY IV 12/07/24 22:00 Amino Acids/ Electrolytes/ Dextrose 1,000 ml @ 41 mls/hr DAILY@2200 IV 12/07/24 22:00 12/08/24 22:01 41 MLS/HR Albumin Human 100 ml @ 100 mls/hr Q1HP PRN IV 12/08/24 10:15 12/08/24 10:29 100 MLS/HR Acetaminophen 1,000 mg Q8H PRN IV 12/08/24 17:15 12/08/24 17:17 1,000 MG objective General: the patient is well developed and nourished. No acute distress. MENTAL STATUS: Subjective SPEECH, LANGUAGE, HIGHER CORTICAL FUNCTION: Subjective CRANIAL NERVES: He might have left homonymous hemianopsia. Pupils are equal, round and reactive. EOMs full and conjugate. Facial sensation intact in all three divisions bilaterally. Mandibular strength intact. Facial muscles symmetrical and strength intact. SENSATION: Sensation to touch and pinprick is unremarkable MOTOR: Normal tone in the upper and lower extremity. Normal muscle bulk. No fasciculations. No abnormal movements or posturing. He moves the right arm, and legs REFLEXES: Deep tendon reflexes are symmetrical. 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 Protonix 40 mg b.i.d. Nephrology on case/hemodialysis GI specialist on case More recommendation per clinical course This medical document was created using an electronic medical record system with [employer] dictation system. Although this document has been carefully reviewed, there may still be some phonetic and typographical errors. These areas are purely typographical due to imperfections of the software programs, and do not reflect any compromise in the patient's medical care. Prognosis poor Dietary Evaluation Review Comments: 1) Nepro Carbsteady 240ml TID 2) Consider renal standard diet 3) Monitor PO intake, lab values, weight trend, and I/O Expected Outcomes/Goals: To meet >75% estimated needs lab values to improve Fu 3-5 days Plan discussed with: Other CC Plasma Assessment Blood Product Administration S: [id number] PATSY SALGADO MD Dec 09, 2024 10:50
--- NOTE | 2024-12-09 14:22 | DVHPN2 ---
Subjective Patient is more awake alert, we will get another swallow evaluation, otherwise scheduled for possible PEG tube placement on Sunday. There is no family member at bedside. Otherwise with a severe loses the pill that he patient has failed swallow evaluation yesterday currently on dear unit. Changes from previous H/P or p: No Changes Objective Vitals Vital Signs Date Time Temp Pulse Resp B/P (MAP) Pulse Ox O2 Delivery O2 Flow Rate FiO2 12/09/24 14:11 98 Nasal Cannula* 2 28 12/09/24 14:10 117 18 12/09/24 12:00 99.1 125/54 (77) 99.1 Intake/Output Intake and Output 12/09/24 07:00 Intake Total 497 ml Output Total 325 ml Balance 172 ml IV Total 497 ml Output Urine Total 225 ml Stool Total 100 ml Exam HEENT pupils are reactive Neck is supple CV is S1-S2 regular rate and rhythm Respiratory diminished breath sounds bases GI positive bowel sound , positive colostomy Extremity no edema PIERCER left-sided hemiplegia. Medications Current Medications Medications Dose Ordered Sig/Delfino Route Start Time Stop Time Status Last Admin Dose Admin Amlodipine Besylate 10 mg DAILY PO 11/22/24 10:00 11/25/24 10:19 10 MG Hydralazine HCl 10 mg Q4HP PRN IV 11/23/24 09:15 12/09/24 00:11 10 MG Pantoprazole Sodium 40 mg BID IV 11/23/24 22:00 12/09/24 11:07 40 MG Sucralfate 1 gm BID PO 11/25/24 22:00 Diagnostic Test (Pha) 1 strip Q6HR 11/25/24 18:00 12/09/24 13:09 1 STRIP Insulin Human Regular FOLLOW SLIDING SCALE Q6HR SC 11/25/24 18:00 12/09/24 13:15 2 UNITS Dextrose 50 ml UD IV 11/25/24 17:15 Atorvastatin Calcium 40 mg HS PO 11/26/24 22:00 Amiodarone HCl 200 mg Q12HR PO 11/28/24 22:00 Metoprolol Tartrate 1.25 mg Q6HPRN PRN IV 11/28/24 18:30 12/08/24 22:01 1.25 MG Epoetin Rolando-epbx 4,000 unit MWF [place] 12/01/24 14:00 UNV Enteral Nutritional Formula 1,000 ml 40ML/HR NG 12/02/24 18:00 Fat Emulsion Intravenous 150 ml/Sodium Chloride 40 meq/ Potassium Chloride 20 meq/ Multivitamins 10 ml/Chromium/ Copper/Manganese/ Zinc 1 ml/Amino Acids/Dextrose/ Purified Water 1,431 ml @ 59 mls/hr [id number] IV 12/03/24 22:00 12/04/24 21:59 Cancel Ipratropium [place] 0.5 mg Q4HR NEB 12/05/24 01:00 12/09/24 13:56 0.5 MG Furosemide 20 mg DAILY IV 12/06/24 10:00 12/09/24 11:10 20 MG Aspirin 300 mg DAILY [place] 12/06/24 10:00 Iron Sucrose 110 ml @ 110 mls/hr DAILY@1200 IV 12/06/24 12:00 12/10/24 12:59 12/09/24 13:52 110 MLS/HR Epoetin Rolando-epbx 6,000 unit MWF@2100 [place] 12/08/24 21:00 12/08/24 20:59 6,000 UNIT Amino Acids 0 ml @ 0 mls/hr PER PHARMACY IV 12/07/24 22:00 Amino Acids/ Electrolytes/ Dextrose 1,000 ml @ 41 mls/hr DAILY@2200 IV 12/07/24 22:00 12/08/24 22:01 41 MLS/HR Albumin Human 100 ml @ 100 mls/hr Q1HP PRN IV 12/08/24 10:15 12/08/24 10:29 100 MLS/HR Acetaminophen 1,000 mg Q8H PRN IV 12/08/24 17:15 12/08/24 17:17 1,000 MG Laboratory Results Laboratory Tests 12/08/24 05:09 12/09/24 04:30 Chemistry Test 12/09/24 04:30 Albumin 4.2 g/dL (3.2-4.8) Calcium Level 9.8 mg/dL (8.7-10.4) Magnesium Level 2.2 mg/dL (1.6-2.6) Phosphorus Level 3.1 mg/dL (2.4-5.1) Total Protein 7.3 g/dL (5.7-8.2) LFT Test 12/09/24 04:30 Alanine Aminotransferase (ALT) 45 U/L (7-40) H Alkaline Phosphatase 163 U/L (46-116) H Aspartate Amino Transferase (AST) 52 U/L (13-40) H Total Bilirubin 1.5 mg/dL (0.2-1.0) H Urinalysis Test 11/23/24 05:50 11/25/24 09:23 Urine Amorphous Crystals Few /hpf (None Seen) Urine Color Light-brown (Yellow) Urine Clarity Turbid (Clear) H Urine pH 8.5 (5.0-9.0) Urine Specific [place] 1.011 (1.001-1.035) Urine Protein 3+ (Negative) H Urine Ketones Trace (Negative) Urine Blood 3+ /uL (Negative) H Urine Nitrite Negative (Negative) Urine Bilirubin Negative (Negative) Urine Urobilinogen Normal mg/dL (Negative) Urine Leukocyte Esterase 3+ /uL (Negative) Urine RBC 2271 /hpf (0 - 3) Urine WBC Clumps Present /hpf (None Seen) Urine Microscopic WBC 312 /HPF (0-3) H Urine Squamous Epithelial Cells None seen /hpf (<5) Urine Bacteria None seen /hpf (None Seen) Urine Glucose Trace mg/dL (Normal) Microbiology Microbiology Date/Time Source Procedure Growth Status 12/07/24 22:00 Nose MRSA Screen - Final Complete 11/25/24 09:23 Urine - Midstream Clean Catch Urine Culture - Final Complete Assessment/Plan Assessment/Plan 78-year-old male with a known history of colon cancer status post partial colectomy status post oral chemotherapy currently in remission, end-stage renal disease on hemodialysis, hypertension, COPD initially presented to hospital with a black tarry stools found to have 1. Acute/subacute right MCA with left-sided hemiplegia 2. Acute delirium/acute encephalopathy suspect secondary to acute CVA 3.Melanotic stools rule out upper GI bleed, status post EGD showed gastro duodenitis 4. History of colon cancer status post partial colectomy status post chemotherapy, status post colostomy 5. End-stage renal disease on hemodialysis 6.. Hypertension 7. COPD 8. Failed swallow evaluation, multiple times -hold aspirin for PEG tube placement , please get a repeat swallow evaluation before PEG tube placement -continue Protonix Carafate, -currently TPN is off, continue Clinimix -no family member at bedside today, aspiration and fall precaution and pressure ulcer precautions. Plan discussed with: Patient, Other My Orders Orders - BRIE BOLAND MD Procedure Category Date Status Time Acetaminophen Iv PHA 12/08/24 In Process ([facility]) 17:15 Clinimix Per Pharmacy SONJA 12/09/24 In Process 22:00 Phosphorus LAB 12/10/24 Verified 04:00 Magnesium LAB 12/10/24 Verified 04:00 Comprehensive LAB 12/10/24 Verified Metabolic Panel 04:00 Lt Upper Dvt US 12/09/24 Taken 12:25 Date of Service: Dec 09, 2024 Billing Provider: BRIE BOLAND MD Common Visit Codes: [id number] INP/OBS CARE(MOD) BRIE BOLAND MD Dec 09, 2024 14:22
--- NOTE | 2024-12-09 14:26 | DVH ---
LEFT Upper Extremity Venous Duplex Clinical History: LT ARM SWELLING Comparison: XY INSERTION OF VENOUS CATH on DOS: 10/09/22, US US GUIDED VASCULAR ACCESS on DOS: 10/09/22 Findings: Duplex Doppler evaluation of the venous system of the LEFT lower neck and upper extremity including c olor Doppler and spectral/pulsed waveform analysis was performed. The internal jugular vein demonstrates appropriate compressibility and waveform variability. The subclavian vein is patent on color Doppler evaluation without intraluminal thrombus and demonstra sheila waveform variability. The visualized portion of the brachiocephalic vein is patent on color Doppler evaluation without intr aluminal thrombus and demonstrates waveform variability. The axillary vein demonstrates appropriate compressibility and waveform variability. The brachial veins demonstrate appropriate compressibility and patency on Doppler evaluation. The basilic vein demonstrates appropriate compressibility and patency on Doppler evaluation. Thrombus in the left cephalic vein. Impression: Thrombus in the left cephalic vein. If clinical concern/symptoms persist or worsen, short-interval follow-up study is suggested.
--- NOTE | 2024-12-09 15:19 | DVHPN2 ---
Progress Note Date Seen: Dec 09, 2024 Has the PT tested + for MRSA If YES, has PT been informed?: No Medical Necessity Reason Pt with a Central, PICC or Fol: Yes The following are medically ne: Ashraf Catheter Objective vital signs Vital Sign Date Time Temp Pulse Resp B/P (MAP) Pulse Ox O2 Delivery O2 Flow Rate FiO2 12/09/24 14:11 98 Nasal Cannula* 2 28 12/09/24 14:10 117 18 12/09/24 12:00 99.1 125/54 (77) 99.1 Total Intake and Output 12/08/24 12/08/24 12/09/24 15:00 23:00 07:00 Intake Total 210 ml 41 ml 287 ml Output Total 175 ml 150 ml Balance 210 ml -134 ml 137 ml medications Current Medications Medications Dose Ordered Sig/Delfino Route Start Time Stop Time Status Last Admin Dose Admin Amlodipine Besylate 10 mg DAILY PO 11/22/24 10:00 11/25/24 10:19 10 MG Hydralazine HCl 10 mg Q4HP PRN IV 11/23/24 09:15 12/09/24 00:11 10 MG Pantoprazole Sodium 40 mg BID IV 11/23/24 22:00 12/09/24 11:07 40 MG Sucralfate 1 gm BID PO 11/25/24 22:00 Diagnostic Test (Pha) 1 strip Q6HR 11/25/24 18:00 12/09/24 13:09 1 STRIP Insulin Human Regular FOLLOW SLIDING SCALE Q6HR SC 11/25/24 18:00 12/09/24 13:15 2 UNITS Dextrose 50 ml UD IV 11/25/24 17:15 Atorvastatin Calcium 40 mg HS PO 11/26/24 22:00 Amiodarone HCl 200 mg Q12HR PO 11/28/24 22:00 Metoprolol Tartrate 1.25 mg Q6HPRN PRN IV 11/28/24 18:30 12/08/24 22:01 1.25 MG Epoetin Rolando-epbx 4,000 unit MWF SC 12/01/24 14:00 UNV Enteral Nutritional Formula 1,000 ml 40ML/HR NG 12/02/24 18:00 Fat Emulsion Intravenous 150 ml/Sodium Chloride 40 meq/ Potassium Chloride 20 meq/ Multivitamins 10 ml/Chromium/ Copper/Manganese/ Zinc 1 ml/Amino Acids/Dextrose/ Purified Water 1,431 ml @ 59 mls/hr [id number] IV 12/03/24 22:00 12/04/24 21:59 Cancel Ipratropium [place] 0.5 mg Q4HR NEB 12/05/24 01:00 12/09/24 13:56 0.5 MG Furosemide 20 mg DAILY IV 12/06/24 10:00 12/09/24 11:10 20 MG Aspirin 300 mg DAILY [place] 12/06/24 10:00 Iron Sucrose 110 ml @ 110 mls/hr DAILY@1200 IV 12/06/24 12:00 12/10/24 12:59 12/09/24 13:52 110 MLS/HR Epoetin Rolando-epbx 6,000 unit MWF@2100 SC 12/08/24 21:00 12/08/24 20:59 6,000 UNIT Amino Acids 0 ml @ 0 mls/hr PER PHARMACY IV 12/07/24 22:00 Amino Acids/ Electrolytes/ Dextrose 1,000 ml @ 41 mls/hr DAILY@2200 IV 12/07/24 22:00 12/08/24 22:01 41 MLS/HR Albumin Human 100 ml @ 100 mls/hr Q1HP PRN IV 12/08/24 10:15 12/08/24 10:29 100 MLS/HR Acetaminophen 1,000 mg Q8H PRN IV 12/08/24 17:15 12/08/24 17:17 1,000 MG laboratory and microbiology Laboratory Tests 12/09/24 04:30 12/08/24 05:09 Test 12/09/24 04:30 Range/Units Serum Glucose 149 H 74-106 mg/dL Microbiology Date/Time Source Procedure Growth Status 12/07/24 22:00 Nose MRSA Screen - Final Complete 11/25/24 09:23 Urine - Midstream Clean Catch Urine Culture - Final Complete Problem List/Assessment/Plan Problem List/Assessment/Plan AFEBRILE VSS ABD SOFT REPEAT SWALLOW EVAL NOT PASSED HIGH RISK FOR PEG PLACEMENT AND OPEN SURGERY TRANSFERRED TO ANH DUE TO HEMODYNAMIC INSTABILITY CONSIDER OPEN G TUBE PLACEMENT IF CLEARED AND FAMILY CONSENTS Plan discussed with: Patient Dietary Evaluation Review Comments: 1) Nepro Carbsteady 240ml TID 2) Consider renal standard diet 3) Monitor PO intake, lab values, weight trend, and I/O Expected Outcomes/Goals: To meet >75% estimated needs lab values to improve Fu 3-5 days CC Plasma Assessment Blood Product Administration S: [id number] ZAHRAA NATION MD Dec 09, 2024 15:19
--- NOTE | 2024-12-09 17:02 | DVHPN2 ---
Progress Note Date Seen: Dec 09, 2024 Resident Creating Document: ROBLES SWEENEY RESIDENT Has the PT tested + for MRSA If YES, has PT been informed?: No Medical Necessity Reason Pt with a Central, PICC or Fol: Yes The following are medically ne: Ashraf Catheter Subjective Review of Systems Today's updates- Patient remains NPO. Failed multiple swallow evaluations-not safe for oral intake. Colostomy bag output 100 mL in the past 24 hours. No nausea vomiting abdominal distention or GI bleeding reported. Peg tube placement planned within 24 hours, likely open PEG tube placement with surgical gastrostomy by Dr. Campbell. tolerating TPN well Objective vital signs Vital Sign Date Time Temp Pulse Resp B/P (MAP) Pulse Ox O2 Delivery O2 Flow Rate FiO2 12/09/24 15:00 115 25 128/58 (81) 99 12/09/24 14:11 Nasal Cannula* 2 28 12/09/24 12:00 99.1 99.1 Total Intake and Output 12/08/24 12/08/24 12/09/24 15:00 23:00 07:00 Intake Total 210 ml 41 ml 287 ml Output Total 175 ml 150 ml Balance 210 ml -134 ml 137 ml medications Current Medications Medications Dose Ordered Sig/Delfino Route Start Time Stop Time Status Last Admin Dose Admin Amlodipine Besylate 10 mg DAILY PO 11/22/24 10:00 11/25/24 10:19 10 MG Hydralazine HCl 10 mg Q4HP PRN IV 11/23/24 09:15 12/09/24 00:11 10 MG Pantoprazole Sodium 40 mg BID IV 11/23/24 22:00 12/09/24 11:07 40 MG Sucralfate 1 gm BID PO 11/25/24 22:00 Diagnostic Test (Pha) 1 strip Q6HR 11/25/24 18:00 12/09/24 16:57 1 STRIP Insulin Human Regular FOLLOW SLIDING SCALE Q6HR SC 11/25/24 18:00 12/09/24 13:15 2 UNITS Dextrose 50 ml UD IV 11/25/24 17:15 Atorvastatin Calcium 40 mg HS PO 11/26/24 22:00 Amiodarone HCl 200 mg Q12HR PO 11/28/24 22:00 Metoprolol Tartrate 1.25 mg Q6HPRN PRN IV 11/28/24 18:30 12/08/24 22:01 1.25 MG Epoetin Rolando-epbx 4,000 unit MWF [place] 12/01/24 14:00 UNV Enteral Nutritional Formula 1,000 ml 40ML/HR NG 12/02/24 18:00 Fat Emulsion Intravenous 150 ml/Sodium Chloride 40 meq/ Potassium Chloride 20 meq/ Multivitamins 10 ml/Chromium/ Copper/Manganese/ Zinc 1 ml/Amino Acids/Dextrose/ Purified Water 1,431 ml @ 59 mls/hr [id number] IV 12/03/24 22:00 12/04/24 21:59 Cancel Ipratropium [place] 0.5 mg Q4HR NEB 12/05/24 01:00 12/09/24 13:56 0.5 MG Furosemide 20 mg DAILY IV 12/06/24 10:00 12/09/24 11:10 20 MG Aspirin 300 mg DAILY [place] 12/06/24 10:00 Iron Sucrose 110 ml @ 110 mls/hr DAILY@1200 IV 12/06/24 12:00 12/10/24 12:59 12/09/24 13:52 110 MLS/HR Epoetin Rolando-epbx 6,000 unit MWF@2100 [place] 12/08/24 21:00 12/08/24 20:59 6,000 UNIT Amino Acids 0 ml @ 0 mls/hr PER PHARMACY IV 12/07/24 22:00 Amino Acids/ Electrolytes/ Dextrose 1,000 ml @ 41 mls/hr DAILY@2200 IV 12/07/24 22:00 12/08/24 22:01 41 MLS/HR Albumin Human 100 ml @ 100 mls/hr Q1HP PRN IV 12/08/24 10:15 12/08/24 10:29 100 MLS/HR Acetaminophen 1,000 mg Q8H PRN IV 12/08/24 17:15 12/08/24 17:17 1,000 MG Examination General-awake, nonverbal Abdomen-soft, nontender, nondistended, bowel sounds present Colostomy-stoma intact, pink healthy mucosa, output 100 mL over the past 24 hours. No peritoneal signs. laboratory and microbiology Laboratory Tests 12/09/24 04:30 12/08/24 05:09 Test 12/09/24 04:30 Range/Units Serum Glucose 149 H 74-106 mg/dL Microbiology Date/Time Source Procedure Growth Status 12/07/24 22:00 Nose MRSA Screen - Final Complete 11/25/24 09:23 Urine - Midstream Clean Catch Urine Culture - Final Complete Problem List/Assessment/Plan Problem List/Assessment/Plan Assessment 1. Upper GI bleed with melena resolved; no current bleeding. 2. Gastroduodenitis continue PPI and Carafate. 3. Severe anemia (multifactorial, prior GI loss and CKD) stable post- transfusion. 4. Parastomal hernia stable, no obstruction. 6. ESRD on HD continue scheduled dialysis. 7. Acute right MCA stroke with dysphagia managed by neurology. 8. Atrial fibrillation (now sinus rhythm on amiodarone) 9. Severe Protein-Calorie Malnutrition * Due to inability to tolerate oral/enteral nutrition, failed NG placement, failed swallow evaluation * Currently on parenteral nutrition via Clinimix * PEG placement scheduled 10. Dysphagia and Feeding Intolerance * Due to post-stroke aphasia and poor gag/swallow reflex * Failed repeat swallow evaluation * Requires PEG for long-term feeding 11.4. Elevated Liver Enzymes * Downtrending * Likely secondary to TPN, hepatic congestion, or ESRD * Continue to monitor LFTs Plan Gastrointestinal / Nutrition PEG TUBE PLACEMENT WITHIN 24 HOURS, LIKELY OPEN SURGICAL GASTROSTOMY FOR PEG TUBE PLACEMENT BY DR. CAMPBELL. * Continue TPN * Maintain NPO status * PEG tube scheduled for SUNDAY * Monitor abdominal exam, colostomy output * Monitor LFTs and electrolytes daily Hematology * Monitor CBC daily * No current signs of bleeding RESUME ASPIRIN AGAIN TODAY * Hold anticoagulation ON SUNDAY EVENING UNTIL post-PEG placement * Maintain transfusion threshold Hgb <7 unless symptomatic Neurologic * Aphasia and non-verbal state post-stroke * High aspiration risk. PEG feeding * Continue supportive care, neuro re-eval not indicated unless mental status changes Infectious Disease / Antibiotics * Continue ceftriaxone pending ID re-evaluation * MRSA/urine/blood cultures negative Disposition * Awaiting PEG placement * SNF vs hospice under discussion * Family and PCP engaged in shared decision-making WE WILL CLOSELY MONITOR THIS PATIENT Case discussed in detail with the attending physician, including the clinical presentation, diagnostic workup, and comprehensive management plan. Plan discussed with: Other (RN) Dietary Evaluation Review Comments: 1) Nepro Carbsteady 240ml TID 2) Consider renal standard diet 3) Monitor PO intake, lab values, weight trend, and I/O Expected Outcomes/Goals: To meet >75% estimated needs lab values to improve Fu 3-5 days CC Plasma Assessment Blood Product Administration S: [id number] ROBLES SWEENEY RESIDENT Dec 09, 2024 17:02
--- NOTE | 2024-12-09 18:17 | DVHPN2 ---
Progress Note - Dictate Date Seen: Dec 09, 2024 Has the PT tested + for MRSA If YES, has PT been informed?: No Medical Necessity Reason Pt with a Central, PICC or Fol: Yes The following are medically ne: Ashraf Catheter vital signs Vital Sign Date Time Temp Pulse Resp B/P (MAP) Pulse Ox O2 Delivery O2 Flow Rate FiO2 12/09/24 17:00 99.2 116 24 118/49 (72) 100 99.2 12/09/24 14:11 Nasal Cannula* 2 28 Total Intake and Output 12/08/24 12/08/24 12/09/24 15:00 23:00 07:00 Intake Total 210 ml 41 ml 287 ml Output Total 175 ml 150 ml Balance 210 ml -134 ml 137 ml medications Current Medications Medications Dose Ordered Sig/Delfino Route Start Time Stop Time Status Last Admin Dose Admin Amlodipine Besylate 10 mg DAILY PO 11/22/24 10:00 11/25/24 10:19 10 MG Hydralazine HCl 10 mg Q4HP PRN IV 11/23/24 09:15 12/09/24 00:11 10 MG Pantoprazole Sodium 40 mg BID IV 11/23/24 22:00 12/09/24 11:07 40 MG Sucralfate 1 gm BID PO 11/25/24 22:00 Diagnostic Test (Pha) 1 strip Q6HR 11/25/24 18:00 12/09/24 16:57 1 STRIP Insulin Human Regular FOLLOW SLIDING SCALE Q6HR SC 11/25/24 18:00 12/09/24 13:15 2 UNITS Dextrose 50 ml UD IV 11/25/24 17:15 Atorvastatin Calcium 40 mg HS PO 11/26/24 22:00 Amiodarone HCl 200 mg Q12HR PO 11/28/24 22:00 Metoprolol Tartrate 1.25 mg Q6HPRN PRN IV 11/28/24 18:30 12/08/24 22:01 1.25 MG Epoetin Rolando-epbx 4,000 unit MWF SC 12/01/24 14:00 UNV Enteral Nutritional Formula 1,000 ml 40ML/HR NG 12/02/24 18:00 Fat Emulsion Intravenous 150 ml/Sodium Chloride 40 meq/ Potassium Chloride 20 meq/ Multivitamins 10 ml/Chromium/ Copper/Manganese/ Zinc 1 ml/Amino Acids/Dextrose/ Purified Water 1,431 ml @ 59 mls/hr [id number] IV 12/03/24 22:00 12/04/24 21:59 Cancel Ipratropium [place] 0.5 mg Q4HR NEB 12/05/24 01:00 12/09/24 13:56 0.5 MG Furosemide 20 mg DAILY IV 12/06/24 10:00 12/09/24 11:10 20 MG Aspirin 300 mg DAILY [place] 12/06/24 10:00 Iron Sucrose 110 ml @ 110 mls/hr DAILY@1200 IV 12/06/24 12:00 12/10/24 12:59 12/09/24 13:52 110 MLS/HR Epoetin Rolando-epbx 6,000 unit MWF@2100 [place] 12/08/24 21:00 12/08/24 20:59 6,000 UNIT Amino Acids 0 ml @ 0 mls/hr PER PHARMACY IV 12/07/24 22:00 Amino Acids/ Electrolytes/ Dextrose 1,000 ml @ 41 mls/hr DAILY@2200 IV 12/07/24 22:00 12/08/24 22:01 41 MLS/HR Albumin Human 100 ml @ 100 mls/hr Q1HP PRN IV 12/08/24 10:15 12/08/24 10:29 100 MLS/HR Acetaminophen 1,000 mg Q8H PRN IV 12/08/24 17:15 12/08/24 17:17 1,000 MG laboratory and microbiology Laboratory Tests 12/09/24 04:30 12/08/24 05:09 Test 12/09/24 04:30 Range/Units Serum Glucose 149 H 74-106 mg/dL Assessment/Plan Acute hypoxemic respiratory failure Noninvasive ventilation Respiratory alkalosis pleural effusion atelectases pneumonia End-stage renal disease hemodialysis The patient is seen and examined events s/p HD d/graded transitioned to nasal 02 this morning Management plan continue supportive care 02 s needed keep sats above 90% bipap prn for increased work of breathing Dialysis per Nephrology with fluid removal Bronchodilators NPO in view of risk For aspiration TPN for nutrition Broad-spectrum antibiotics for pneumonia Prognosis very poor in view of multiple comorbidities Dietary Evaluation Review Comments: 1) Nepro Carbsteady 240ml TID 2) Consider renal standard diet 3) Monitor PO intake, lab values, weight trend, and I/O Expected Outcomes/Goals: To meet >75% estimated needs lab values to improve Fu 3-5 days Plan discussed with: Patient CC Plasma Assessment Blood Product Administration S: [id number] TORSTEN GREEN MD Dec 09, 2024 18:17
--- NOTE | 2024-12-09 20:08 | DVHPN2 ---
Progress Note Date Seen: Dec 09, 2024 Has the PT tested + for MRSA If YES, has PT been informed?: No Medical Necessity Reason Pt with a Central, PICC or Fol: Yes The following are medically ne: Ashraf Catheter Subjective Patient reports: No new complaints Review of Systems: Deferred Objective vital signs Vital Sign Date Time Temp Pulse Resp B/P (MAP) Pulse Ox O2 Delivery O2 Flow Rate FiO2 12/09/24 18:38 110 18 100 12/09/24 18:33 Nasal Cannula* 2 28 12/09/24 17:00 99.2 118/49 (72) 99.2 Total Intake and Output 12/08/24 12/08/24 12/09/24 15:00 23:00 07:00 Intake Total 210 ml 41 ml 287 ml Output Total 175 ml 150 ml Balance 210 ml -134 ml 137 ml medications Current Medications Medications Dose Ordered Sig/Delfino Route Start Time Stop Time Status Last Admin Dose Admin Amlodipine Besylate 10 mg DAILY PO 11/22/24 10:00 11/25/24 10:19 10 MG Hydralazine HCl 10 mg Q4HP PRN IV 11/23/24 09:15 12/09/24 00:11 10 MG Pantoprazole Sodium 40 mg BID IV 11/23/24 22:00 12/09/24 11:07 40 MG Sucralfate 1 gm BID PO 11/25/24 22:00 Diagnostic Test (Pha) 1 strip Q6HR 11/25/24 18:00 12/09/24 16:57 1 STRIP Insulin Human Regular FOLLOW SLIDING SCALE Q6HR SC 11/25/24 18:00 12/09/24 13:15 2 UNITS Dextrose 50 ml UD IV 11/25/24 17:15 Atorvastatin Calcium 40 mg HS PO 11/26/24 22:00 Amiodarone HCl 200 mg Q12HR PO 11/28/24 22:00 Metoprolol Tartrate 1.25 mg Q6HPRN PRN IV 11/28/24 18:30 12/08/24 22:01 1.25 MG Epoetin Rolando-epbx 4,000 unit MWF [place] 12/01/24 14:00 UNV Enteral Nutritional Formula 1,000 ml 40ML/HR NG 12/02/24 18:00 Fat Emulsion Intravenous 150 ml/Sodium Chloride 40 meq/ Potassium Chloride 20 meq/ Multivitamins 10 ml/Chromium/ Copper/Manganese/ Zinc 1 ml/Amino Acids/Dextrose/ Purified Water 1,431 ml @ 59 mls/hr [id number] IV 12/03/24 22:00 12/04/24 21:59 Cancel Ipratropium [place] 0.5 mg Q4HR NEB 12/05/24 01:00 12/09/24 18:33 0.5 MG Furosemide 20 mg DAILY IV 12/06/24 10:00 12/09/24 11:10 20 MG Aspirin 300 mg DAILY [place] 12/06/24 10:00 Iron Sucrose 110 ml @ 110 mls/hr DAILY@1200 IV 12/06/24 12:00 12/10/24 12:59 12/09/24 13:52 110 MLS/HR Epoetin Rolando-epbx 6,000 unit MWF@2100 [place] 12/08/24 21:00 12/08/24 20:59 6,000 UNIT Amino Acids 0 ml @ 0 mls/hr PER PHARMACY IV 12/07/24 22:00 Amino Acids/ Electrolytes/ Dextrose 1,000 ml @ 41 mls/hr DAILY@2200 IV 12/07/24 22:00 12/08/24 22:01 41 MLS/HR Albumin Human 100 ml @ 100 mls/hr Q1HP PRN IV 12/08/24 10:15 12/08/24 10:29 100 MLS/HR Acetaminophen 1,000 mg Q8H PRN IV 12/08/24 17:15 12/08/24 17:17 1,000 MG Examination: GENERAL:Abnormal, LUNGS:Abnormal, MSK:Abnormal laboratory and microbiology Laboratory Tests 12/09/24 04:30 12/08/24 05:09 Test 12/09/24 04:30 Range/Units Serum Glucose 149 H 74-106 mg/dL Microbiology Date/Time Source Procedure Growth Status 12/07/24 22:00 Nose MRSA Screen - Final Complete 11/25/24 09:23 Urine - Midstream Clean Catch Urine Culture - Final Complete Problem List/Assessment/Plan Problem List/Assessment/Plan 1. ESRD on HD- 2. HTN 3. hx of COPD 4. Anemia s/p PRBC transfusion CVA fronto parietal recs HD 12/08 next hd 12/10 peg tube eval ongoing on clinimix as pt cant eat Plan discussed with: Patient Dietary Evaluation Review Comments: 1) Nepro Carbsteady 240ml TID 2) Consider renal standard diet 3) Monitor PO intake, lab values, weight trend, and I/O Expected Outcomes/Goals: To meet >75% estimated needs lab values to improve Fu 3-5 days CC Plasma Assessment Blood Product Administration S: [id number] GERMAN WATERMAN MD Dec 09, 2024 20:08
[2024-12-10] VITALS (21 sets, daily range): BP systolic 98–164; BP diastolic 33–83; PULSE 91–114; RESP 16–25; TEMP 97–99.5; O2SAT 94–100
[2024-12-10 07:16] LABS: Alanine Aminotransferase 30 U/L (7-40); Albumin 3.9 g/dL (3.2-4.8); Anion Gap 17 (5-15); BUN/Creatinine Ratio 12.8 (10.0-20.0); Calcium 9.6 mg/dL (8.7-10.4); Carbon Dioxide 24 mmol/L (20-31); Chloride 100 mmol/L (98-107); Magnesium 2.2 mg/dL (1.6-2.6); Potassium 3.8 mmol/L (3.5-5.1); Sodium 141 mmol/L (136-145); Total Protein 6.9 g/dL (5.7-8.2)
[2024-12-10 07:25] LABS: Alkaline Phosphatase 153 U/L (46-116); Bilirubin, Total 1.8 mg/dL (0.2-1.0); Blood Urea Nitrogen 74 mg/dL (9-23); Glucose 163 mg/dL (74-106)
[2024-12-10] MEDS: LIDOCAINE 2%HCL (LOCAL ANESTH.) INJ 20ML MDV ONE (13:28)
[2024-12-10] MEDS: ceFAZolin 1GM/50ML 50 ML IV ONE (13:46)
[2024-12-10] MEDS: HEPARIN 1,000 UNITS/ml 1ML VIAL ONE (14:34)
--- NOTE | 2024-12-10 14:51 | DVH ---
XY Insertion of Venous Cath, HISTORY: POWER LINE PL PROCEDURE: Informed consent was obtained. The patient was placed supine on the interventional table. A limited localization ultrasound of the right neck base was obtained. The right neck base and upper chest were prepped with chlorhexidine which was allowed to dry and draped in the usual sterile fashio n. Time out was performed. 1 gram of Ancef was given IV. IV sedation was administered. The skin and t he soft tissues were infiltrated with 1% Lidocaine. With real-time ultrasound guidance, the external jugular vein was accessed with a micropuncture kit, and an image documenting patency was recorded to PACS. A subcutaneous tunneled tract was created from the right upper chest to the venotomy site. A 5 Lao, 28 cm long cut to length dual lumen Power Line catheter was advanced through the tunneled tra ct. Fluoroscopy was used to advance a guidewire through the internal jugular vein into the inferior vena cava. A 6 Lao peel-away sheath was introduced, though which was advanced the catheter into the rig ht cavoatrial junction. The catheter tip position was confirmed with fluoroscopy. There was satisfact ory flow in both lumens. The catheter lumens were flushed with saline and heparin was left indwelling in the catheter. A post-procedure image of the chest was obtained. The neck incision site was closed with pressure and dressed sterilely. The catheter was sutured at the skin surface and exit site also dressed sterilely. No immediate complication was identified. DAP 116.3 FLUOROSCOPY TIME: 3.0 minutes. SEDATION: Dr. Piper Jewell was personally responsible for the administration of moderate sedation during the procedure performed, including the use of an independent trained observer who had no other duties during the procedure. The drugs utilized were IV fentanyl and versed (see nursing log for details). The total time of supervision by the attending physician was approximately 30 minutes. FINDINGS: Widely patent right EJV. Post procedure image demonstrates smooth course of the catheter with the tip in the right cavoatrial junction. IMPRESSION: Placement of 5 yoruba dual lumen power line, 28 cm long cut to length catheter through right external jugular vein. Plan: Please contact IR for removal when no longer needed.
--- NOTE | 2024-12-10 15:41 | DVHPN2 ---
Subjective Patient has failed swallow evaluation repeatedly, currently scheduled for PEG tube placement, also patient does not have any peripheral line tunneled insertion of the line is pending by the IR today. Changes from previous H/P or p: No Changes Objective Vitals Vital Signs Date Time Temp Pulse Resp B/P (MAP) Pulse Ox O2 Delivery O2 Flow Rate FiO2 12/10/24 09:59 157/56 12/10/24 09:09 97 Nasal Cannula* 2 28 12/10/24 09:09 114 18 12/10/24 09:00 97.0 97.0 Intake/Output Intake and Output 12/10/24 07:00 Intake Total 428 ml Output Total 25 ml Balance 403 ml Intake Oral 0 ml IV Total 428 ml Output Urine Total 25 ml Exam HEENT pupils are reactive Neck is supple CV is S1-S2 regular rate and rhythm Respiratory diminished breath sounds bases GI positive bowel sound , positive colostomy Extremity no edema [employer] left-sided hemiplegia. Medications Current Medications Medications Dose Ordered Sig/Delfino Route Start Time Stop Time Status Last Admin Dose Admin Amlodipine Besylate 10 mg DAILY PO 11/22/24 10:00 11/25/24 10:19 10 MG Hydralazine HCl 10 mg Q4HP PRN IV 11/23/24 09:15 12/09/24 00:11 10 MG Pantoprazole Sodium 40 mg BID IV 11/23/24 22:00 12/10/24 09:43 40 MG Sucralfate 1 gm BID PO 11/25/24 22:00 Diagnostic Test (Pha) 1 strip Q6HR 11/25/24 18:00 12/10/24 06:00 1 STRIP Insulin Human Regular FOLLOW SLIDING SCALE Q6HR SC 11/25/24 18:00 12/10/24 06:53 4 UNITS Dextrose 50 ml UD IV 11/25/24 17:15 Atorvastatin Calcium 40 mg HS PO 11/26/24 22:00 Amiodarone HCl 200 mg Q12HR PO 11/28/24 22:00 Metoprolol Tartrate 1.25 mg Q6HPRN PRN IV 11/28/24 18:30 12/08/24 22:01 1.25 MG Epoetin Rolando-epbx 4,000 unit MWF SC 12/01/24 14:00 UNV Enteral Nutritional Formula 1,000 ml 40ML/HR NG 12/02/24 18:00 Fat Emulsion Intravenous 150 ml/Sodium Chloride 40 meq/ Potassium Chloride 20 meq/ Multivitamins 10 ml/Chromium/ Copper/Manganese/ Zinc 1 ml/Amino Acids/Dextrose/ Purified Water 1,431 ml @ 59 mls/hr [id number] IV 12/03/24 22:00 12/04/24 21:59 Cancel Ipratropium [place] 0.5 mg Q4HR NEB 12/05/24 01:00 12/10/24 09:09 0.5 MG Furosemide 20 mg DAILY IV 12/06/24 10:00 12/10/24 09:44 20 MG Epoetin Rolando-epbx 6,000 unit MWF@2100 SC 12/08/24 21:00 12/08/24 20:59 6,000 UNIT Amino Acids 0 ml @ 0 mls/hr PER PHARMACY IV 12/07/24 22:00 Amino Acids/ Electrolytes/ Dextrose 1,000 ml @ 41 mls/hr DAILY@2200 IV 12/07/24 22:00 12/10/24 00:08 41 MLS/HR Albumin Human 100 ml @ 100 mls/hr Q1HP PRN IV 12/08/24 10:15 12/08/24 10:29 100 MLS/HR Acetaminophen 1,000 mg Q8H PRN IV 12/08/24 17:15 12/08/24 17:17 1,000 MG Laboratory Results Laboratory Tests 12/08/24 05:09 12/10/24 05:49 Chemistry Test 12/10/24 05:49 Albumin 3.9 g/dL (3.2-4.8) Calcium Level 9.6 mg/dL (8.7-10.4) Magnesium Level 2.2 mg/dL (1.6-2.6) Phosphorus Level 3.3 mg/dL (2.4-5.1) Total Protein 6.9 g/dL (5.7-8.2) LFT Test 12/10/24 05:49 Alanine Aminotransferase (ALT) 30 U/L (7-40) Alkaline Phosphatase 153 U/L (46-116) H Aspartate Amino Transferase (AST) 38 U/L (13-40) Total Bilirubin 1.8 mg/dL (0.2-1.0) H Urinalysis Test 11/23/24 05:50 11/25/24 09:23 Urine Amorphous Crystals Few /hpf (None Seen) Urine Color Light-brown (Yellow) Urine Clarity Turbid (Clear) H Urine pH 8.5 (5.0-9.0) Urine Specific [place] 1.011 (1.001-1.035) Urine Protein 3+ (Negative) H Urine Ketones Trace (Negative) Urine Blood 3+ /uL (Negative) H Urine Nitrite Negative (Negative) Urine Bilirubin Negative (Negative) Urine Urobilinogen Normal mg/dL (Negative) Urine Leukocyte Esterase 3+ /uL (Negative) Urine RBC 2271 /hpf (0 - 3) Urine WBC Clumps Present /hpf (None Seen) Urine Microscopic WBC 312 /HPF (0-3) H Urine Squamous Epithelial Cells None seen /hpf (<5) Urine Bacteria None seen /hpf (None Seen) Urine Glucose Trace mg/dL (Normal) Microbiology Microbiology Date/Time Source Procedure Growth Status 12/07/24 22:00 Nose MRSA Screen - Final Complete 11/25/24 09:23 Urine - Midstream Clean Catch Urine Culture - Final Complete Assessment/Plan Assessment/Plan 78-year-old male with a known history of colon cancer status post partial colectomy status post oral chemotherapy currently in remission, end-stage renal disease on hemodialysis, hypertension, COPD initially presented to hospital with a black tarry stools found to have 1. Acute/subacute right MCA with left-sided hemiplegia 2. Acute delirium/acute encephalopathy suspect secondary to acute CVA 3.Melanotic stools rule out upper GI bleed, status post EGD showed gastro duodenitis 4. History of colon cancer status post partial colectomy status post chemotherapy, status post colostomy 5. End-stage renal disease on hemodialysis 6.. Hypertension 7. COPD 8. Failed swallow evaluation, multiple times -hold aspirin for PEG tube placement , tunneled peripheral line by the IR -continue Protonix Carafate, -currently TPN is off, continue Clinimix -no family member at bedside today, aspiration and fall precaution and pressure ulcer precautions. Plan discussed with: Patient, Other My Orders Orders - BRIE BOLAND MD Procedure Category Date Status Time * Gi Dvh Skin Tanner CONS 12/10/24 Transmitted 11:00 Comprehensive LAB 12/11/24 Verified Metabolic Panel 05:00 Magnesium LAB 12/11/24 Verified 05:00 Phosphorus LAB 12/11/24 Verified 05:00 Clinimix Per Pharmacy SONJA 12/10/24 In Process 22:00 Transfer Orders XFER 12/10/24 Transmitted 15:10 Transfer Orders XFER 12/10/24 Transmitted 15:11 Date of Service: Dec 10, 2024 Billing Provider: BRIE BOLAND MD Common Visit Codes: [id number] INP/OBS CARE(MOD) BRIE BOLAND MD Dec 10, 2024 15:41
[2024-12-10 16:01] LABS: Hematocrit 25.3 % (41.0-53.0); Hemoglobin 8.2 g/dL (13.5-17.5)
--- NOTE | 2024-12-10 16:47 | DVHPN2 ---
Progress Note - Dictate Date Seen: Dec 10, 2024 Has the PT tested + for MRSA If YES, has PT been informed?: No Medical Necessity Reason Pt with a Central, PICC or Fol: Yes The following are medically ne: Ashraf Catheter vital signs Vital Sign Date Time Temp Pulse Resp B/P (MAP) Pulse Ox O2 Delivery O2 Flow Rate FiO2 12/10/24 16:33 98.0 113 20 159/58 (91) 96 98.0 12/10/24 09:09 Nasal Cannula* 2 28 Total Intake and Output 12/09/24 12/09/24 12/10/24 15:00 23:00 07:00 Intake Total 428 ml 0 ml 0 ml Output Total 25 ml Balance 428 ml 0 ml -25 ml medications Current Medications Medications Dose Ordered Sig/Delfino Route Start Time Stop Time Status Last Admin Dose Admin Amlodipine Besylate 10 mg DAILY PO 11/22/24 10:00 11/25/24 10:19 10 MG Hydralazine HCl 10 mg Q4HP PRN IV 11/23/24 09:15 12/09/24 00:11 10 MG Pantoprazole Sodium 40 mg BID IV 11/23/24 22:00 12/10/24 09:43 40 MG Sucralfate 1 gm BID PO 11/25/24 22:00 Diagnostic Test (Pha) 1 strip Q6HR 11/25/24 18:00 12/10/24 06:00 1 STRIP Insulin Human Regular FOLLOW SLIDING SCALE Q6HR SC 11/25/24 18:00 12/10/24 06:53 4 UNITS Dextrose 50 ml UD IV 11/25/24 17:15 Atorvastatin Calcium 40 mg HS PO 11/26/24 22:00 Amiodarone HCl 200 mg Q12HR PO 11/28/24 22:00 Metoprolol Tartrate 1.25 mg Q6HPRN PRN IV 11/28/24 18:30 12/08/24 22:01 1.25 MG Epoetin Rolando-epbx 4,000 unit MWF SC 12/01/24 14:00 UNV Enteral Nutritional Formula 1,000 ml 40ML/HR NG 12/02/24 18:00 Fat Emulsion Intravenous 150 ml/Sodium Chloride 40 meq/ Potassium Chloride 20 meq/ Multivitamins 10 ml/Chromium/ Copper/Manganese/ Zinc 1 ml/Amino Acids/Dextrose/ Purified Water 1,431 ml @ 59 mls/hr [id number] IV 12/03/24 22:00 12/04/24 21:59 Cancel Ipratropium [place] 0.5 mg Q4HR NEB 12/05/24 01:00 12/10/24 09:09 0.5 MG Furosemide 20 mg DAILY IV 12/06/24 10:00 12/10/24 09:44 20 MG Epoetin Rolando-epbx 6,000 unit MWF@2100 SC 12/08/24 21:00 12/08/24 20:59 6,000 UNIT Amino Acids 0 ml @ 0 mls/hr PER PHARMACY IV 12/07/24 22:00 Amino Acids/ Electrolytes/ Dextrose 1,000 ml @ 41 mls/hr DAILY@2200 IV 12/07/24 22:00 12/10/24 00:08 41 MLS/HR Albumin Human 100 ml @ 100 mls/hr Q1HP PRN IV 12/08/24 10:15 12/08/24 10:29 100 MLS/HR Acetaminophen 1,000 mg Q8H PRN IV 12/08/24 17:15 12/08/24 17:17 1,000 MG laboratory and microbiology Laboratory Tests 12/10/24 15:42 12/10/24 05:49 12/08/24 05:09 Test 12/10/24 05:49 Range/Units Serum Glucose 163 H 74-106 mg/dL Assessment/Plan Acute hypoxemic respiratory failure Noninvasive ventilation Respiratory alkalosis pleural effusion atelectases pneumonia End-stage renal disease hemodialysis The patient is seen and examined events low oxygen requirements on 2 liters nasal cannula no distress Management plan continue supportive care 02 s needed keep sats above 90% bipap prn for increased work of breathing Dialysis per Nephrology with fluid removal Bronchodilators NPO in view of risk For aspiration TPN for nutrition Broad-spectrum antibiotics for pneumonia Dietary Evaluation Review Comments: 1) Nepro Carbsteady 240ml TID 2) Consider renal standard diet 3) Monitor PO intake, lab values, weight trend, and I/O Expected Outcomes/Goals: To meet >75% estimated needs lab values to improve Fu 3-5 days Plan discussed with: Patient CC Plasma Assessment Blood Product Administration S: [id number] TORSTEN GREEN MD Dec 10, 2024 16:47
[2024-12-10] MEDS ORDERED: fentaNYL CITRATE 100 MCG/2 ML VL ONE (17:47)
[2024-12-10] MEDS ORDERED: PROPOFOL 10 MG/ML 20 ML IV ONE (17:51)
[2024-12-10] MEDS ORDERED: KETAMINE 50mg/ML 1ml syringe ONE (17:52)
--- NOTE | 2024-12-10 18:04 | DVHOP2 ---
Operative Report DATE OF OPERATION: 12/10/24 PROCEDURE: Upper Endoscopy with a PEG tube placement. PREOPERATIVE INDICATION: The patient is a 79 -year-old male undergoing endoscopy for altered level of consciousness CVA failure to thrive oropharyngeal dysphagia failed swallow evaluation multiple times POSTOPERATIVE DIAGNOSES: 1. Upper endoscopy revealed a hiatal hernia and minimal gastritis 2. Percutaneous gastrostomy tube was placed through the anterior abdominal wall under sterile conditions by Dr. Rosalva Campbell using endoscopic guidance and assistance 3. Placement of the tube was confirmed by repeat endoscopy PROCEDURE PERFORMED BY: Enid Campbell GI NURSE: Rosanne SCOPE: Olympus videoendoscope. ASA CLASS: 3. PREOPERATIVE MEDICATIONS: Mac anesthesia, Dr. Ruano; IV Ancef 1 g PROCEDURE IN DETAIL: After obtaining an informed consent, the patient was placed on left lateral decubitus position. The patient was then sedated with the above medications. A bite block was placed between his teeth. The endoscope was then passed through the oropharynx, into the esophagus, and through the stomach and pylorus up to the second and third part of the duodenum. The endoscope was then withdrawn. Patient had mild gastritis and a 2 cm sliding-type hiatal hernia. The endoscope was passed back into the stomach and the stomach was inflated The light from the endoscope could clearly be seen in the epigastric area. Under sterile conditions a percutaneous gastrostomy tube was placed through the anterior abdominal wall into the stomach using endoscopic guidance and assistance per standard protocol Repeat endoscopy confirmed adequate dilatation. There was minimal mucosal oozing at the hiatal hernia. The patient tolerated the procedure well without difficulty. COMPLICATIONS : None SPECIMENS: None DISPOSITION: Transfer back to the floor Stable PLAN: 1. See post PEG tube placement instructions 2. Will place pt on Protonix 40 mg bid IV 3. Monitor labs ENID CAMPBELL MD Dec 10, 2024 18:04
--- NOTE | 2024-12-10 18:05 | DVHOP2 ---
Operative Report [id number] PEG TUBE PLACEMENT LOCAL WITH IV SEDATION EBL 1 CC NO DRAINS EGD DONE BY DR Britta NATION NO COMPLICATIONS STABLE TRANSFER TO RECOVERY ROOM ZAHRAA NATION MD Dec 10, 2024 18:05
--- NOTE | 2024-12-10 18:27 | DVHPN2 ---
Progress Note Date Seen: Dec 10, 2024 Has the PT tested + for MRSA If YES, has PT been informed?: No Medical Necessity Reason Pt with a Central, PICC or Fol: Yes The following are medically ne: Ashraf Catheter Subjective Patient reports: No new complaints Review of Systems: Deferred Objective vital signs Vital Sign Date Time Temp Pulse Resp B/P (MAP) Pulse Ox O2 Delivery O2 Flow Rate FiO2 12/10/24 16:33 98.0 113 20 159/58 (91) 96 98.0 12/10/24 10:00 Nasal Cannula 2.0 12/10/24 10:00 28 Total Intake and Output 12/09/24 12/09/24 12/10/24 15:00 23:00 07:00 Intake Total 428 ml 0 ml 0 ml Output Total 25 ml Balance 428 ml 0 ml -25 ml medications Current Medications Medications Dose Ordered Sig/Delfino Route Start Time Stop Time Status Last Admin Dose Admin Amlodipine Besylate 10 mg DAILY PO 11/22/24 10:00 11/25/24 10:19 10 MG Hydralazine HCl 10 mg Q4HP PRN IV 11/23/24 09:15 12/09/24 00:11 10 MG Pantoprazole Sodium 40 mg BID IV 11/23/24 22:00 12/10/24 09:43 40 MG Sucralfate 1 gm BID PO 11/25/24 22:00 Diagnostic Test (Pha) 1 strip Q6HR 11/25/24 18:00 12/10/24 06:00 1 STRIP Insulin Human Regular FOLLOW SLIDING SCALE Q6HR SC 11/25/24 18:00 12/10/24 06:53 4 UNITS Dextrose 50 ml UD IV 11/25/24 17:15 Atorvastatin Calcium 40 mg HS PO 11/26/24 22:00 Amiodarone HCl 200 mg Q12HR PO 11/28/24 22:00 Metoprolol Tartrate 1.25 mg Q6HPRN PRN IV 11/28/24 18:30 12/08/24 22:01 1.25 MG Epoetin Rolando-epbx 4,000 unit MWF SC 12/01/24 14:00 UNV Enteral Nutritional Formula 1,000 ml 40ML/HR NG 12/02/24 18:00 Fat Emulsion Intravenous 150 ml/Sodium Chloride 40 meq/ Potassium Chloride 20 meq/ Multivitamins 10 ml/Chromium/ Copper/Manganese/ Zinc 1 ml/Amino Acids/Dextrose/ Purified Water 1,431 ml @ 59 mls/hr [id number] IV 12/03/24 22:00 12/04/24 21:59 Cancel Ipratropium [place] 0.5 mg Q4HR NEB 12/05/24 01:00 12/10/24 09:09 0.5 MG Furosemide 20 mg DAILY IV 12/06/24 10:00 12/10/24 09:44 20 MG Epoetin Rolando-epbx 6,000 unit MWF@2100 SC 12/08/24 21:00 Hold 12/08/24 20:59 6,000 UNIT Amino Acids 0 ml @ 0 mls/hr PER PHARMACY IV 12/07/24 22:00 Amino Acids/ Electrolytes/ Dextrose 1,000 ml @ 41 mls/hr DAILY@2200 IV 12/07/24 22:00 12/10/24 00:08 41 MLS/HR Albumin Human 100 ml @ 100 mls/hr Q1HP PRN IV 12/08/24 10:15 12/08/24 10:29 100 MLS/HR Acetaminophen 1,000 mg Q8H PRN IV 12/08/24 17:15 12/08/24 17:17 1,000 MG Enteral Nutritional Formula 240 ml Q6HR PO 12/11/24 06:00 UNV laboratory and microbiology Laboratory Tests 12/10/24 15:42 12/10/24 05:49 12/08/24 05:09 Test 12/10/24 05:49 Range/Units Serum Glucose 163 H 74-106 mg/dL Microbiology Date/Time Source Procedure Growth Status 12/07/24 22:00 Nose MRSA Screen - Final Complete 11/25/24 09:23 Urine - Midstream Clean Catch Urine Culture - Final Complete Problem List/Assessment/Plan Problem List/Assessment/Plan 1. ESRD on HD- 2. HTN 3. hx of COPD 4. Anemia s/p PRBC transfusion CVA fronto parietal recs next hd 12/10 Plan discussed with: Patient My Orders My Orders Orders - GERMAN WATERMAN MD Procedure Category Date Status Time Hemodialysis Orders ORDERS 12/10/24 Transmitted 12:41 Epoetin Rolando-Epbx PHA 12/10/24 In Process (Retacrit) 21:00 Dietary Evaluation Review Comments: 1) Nepro Carbsteady 240ml TID 2) Consider renal standard diet 3) Monitor PO intake, lab values, weight trend, and I/O Expected Outcomes/Goals: To meet >75% estimated needs lab values to improve Fu 3-5 days CC Plasma Assessment Blood Product Administration S: [id number] GERMAN WATERMAN MD Dec 10, 2024 18:27
[2024-12-10] MEDS: SODIUM CHL 0.9% 1000 ML BAG XX ONE (20:55)
[2024-12-10] MEDS: ALBUMIN 25% 100 ML IV STA (21:15)
--- NOTE | 2024-12-10 22:27 | DVHPN2 ---
Progress Note - Dictate Date Seen: Dec 10, 2024 Has the PT tested + for MRSA If YES, has PT been informed?: No Medical Necessity Reason Pt with a Central, PICC or Fol: Yes The following are medically ne: Ashraf Catheter Subjective Mr. Akbar is a 78 years old gentleman with a history of hypertension, dyslipidemia, COPD, end-stage kidney failure on hemodialysis, colon cancer status post colostomy, he was brought to the [facility] on 11/21/2024 with a chief company of general weakness and dark stool. I have seen and examined the patient. I have talked to his nurse, he is awake, oriented to person, looks very weak, he is able to talk a little bit he is going through hemodialysis Stool occult blood, 11/21/2024: Positive Urinalysis, 11/23/2024: UTI UDS, 11/23/2024: Negative WBC/HB/PLT/MCV, 11/21/2024: 12.3/5.8/267/94.5, 11/25/2024: 11.8/9.9/275/93.6 PT/INR/PTT, 11/21/2024: 13/1.25/41.6 BUN/CR, 11/26/2024: 53/6.41 HGB A1c, 11/21/2024: <3.8 TG/HDL/LDL/HDL, 11/27/2024: 203/156/93/21 Vitamin B12, 11/21/2024: 452 TSH, 11/21/2024: 2.27 EKG, 10/3124: AFib Carotid Doppler, 11/26/2024: 1. No hemodynamically significant stenosis noted in the right carotid system. Approximately 50-69 % focal stenosis in the mid right internal carotid artery. 2. No hemodynamically significant stenosis noted in the left carotid system. 3. The vertebral arteries were not visualized. Echocardiogram, 11/27/2024: Sinus rhythm. Concentric LVH with left atrial enlargement and aortic root enlargement. Dilation of the sinuses of Valsalva. Moderate mitral annular calcification of the base of the posterior mitral leaflet. The aortic and tricuspid appear to be structurally normal. Left ventricular systolic performance appears to be preserved. EF is about 55%. There is impaired diastolic relaxation. Normal RV function. There is mild aortic insufficiency. Mild tricuspid regurgitation. No pericardial effusion masses or vegetations. CT head, 11/09/2024: Acute to subacute infarction of the right frontoparietal lobe with thrombus in the right middle cerebral artery M2 segment. Recommend neurology consultation. Moderate chronic microvascular ischemic changes. MRI head, 11/26/2024: Acute infarction right middle cerebral artery distribution involving the right frontal and parietal lobes. Findings consistent with right M2 middle cerebral artery segment occlusion/thrombosis. Moderate chronic microvascular ischemic changes. EGD, 11/25/2024: 1. Minimal gastroduodenitis 2. Otherwise normal examination up to the 2nd and 3rd part of the duodenal with no fresh or old blood in the upper GI tract vital signs Vital Sign Date Time Temp Pulse Resp B/P (MAP) Pulse Ox O2 Delivery O2 Flow Rate FiO2 12/10/24 22:10 104 18 100 12/10/24 21:00 98.4 98/56 (70) 98.4 12/10/24 20:00 Nasal Cannula* 2 28 Total Intake and Output 12/09/24 12/09/24 12/10/24 15:00 23:00 07:00 Intake Total 428 ml 0 ml 0 ml Output Total 25 ml Balance 428 ml 0 ml -25 ml medications Current Medications Medications Dose Ordered Sig/Delfino Route Start Time Stop Time Status Last Admin Dose Admin Amlodipine Besylate 10 mg DAILY PO 11/22/24 10:00 11/25/24 10:19 10 MG Hydralazine HCl 10 mg Q4HP PRN IV 11/23/24 09:15 12/09/24 00:11 10 MG Pantoprazole Sodium 40 mg BID IV 11/23/24 22:00 12/10/24 09:43 40 MG Sucralfate 1 gm BID PO 11/25/24 22:00 Diagnostic Test (Pha) 1 strip Q6HR 11/25/24 18:00 12/10/24 06:00 1 STRIP Insulin Human Regular FOLLOW SLIDING SCALE Q6HR SC 11/25/24 18:00 12/10/24 06:53 4 UNITS Dextrose 50 ml UD IV 11/25/24 17:15 Atorvastatin Calcium 40 mg HS PO 11/26/24 22:00 Amiodarone HCl 200 mg Q12HR PO 11/28/24 22:00 Metoprolol Tartrate 1.25 mg Q6HPRN PRN IV 11/28/24 18:30 12/08/24 22:01 1.25 MG Epoetin Rolando-epbx 4,000 unit MWF SC 12/01/24 14:00 UNV Enteral Nutritional Formula 1,000 ml 40ML/HR NG 12/02/24 18:00 Fat Emulsion Intravenous 150 ml/Sodium Chloride 40 meq/ Potassium Chloride 20 meq/ Multivitamins 10 ml/Chromium/ Copper/Manganese/ Zinc 1 ml/Amino Acids/Dextrose/ Purified Water 1,431 ml @ 59 mls/hr [id number] IV 12/03/24 22:00 12/04/24 21:59 Cancel Ipratropium [place] 0.5 mg Q4HR NEB 12/05/24 01:00 12/10/24 22:00 0.5 MG Furosemide 20 mg DAILY IV 12/06/24 10:00 12/10/24 09:44 20 MG Epoetin Rolando-epbx 6,000 unit MWF@2100 SC 12/08/24 21:00 Hold 12/08/24 20:59 6,000 UNIT Amino Acids 0 ml @ 0 mls/hr PER PHARMACY IV 12/07/24 22:00 Amino Acids/ Electrolytes/ Dextrose 1,000 ml @ 41 mls/hr DAILY@2200 IV 12/07/24 22:00 12/10/24 00:08 41 MLS/HR Albumin Human 100 ml @ 100 mls/hr Q1HP PRN IV 12/08/24 10:15 12/08/24 10:29 100 MLS/HR Acetaminophen 1,000 mg Q8H PRN IV 12/08/24 17:15 12/08/24 17:17 1,000 MG Enteral Nutritional Formula 240 ml Q6HR PO 12/11/24 06:00 objective General: the patient is well developed and nourished. No acute distress. MENTAL STATUS: Subjective SPEECH, LANGUAGE, HIGHER CORTICAL FUNCTION: Subjective CRANIAL NERVES: He might have left homonymous hemianopsia. Pupils are equal, round and reactive. EOMs full and conjugate. Facial sensation intact in all three divisions bilaterally. Mandibular strength intact. Facial muscles symmetrical and strength intact. SENSATION: Sensation to touch and pinprick is unremarkable MOTOR: Normal tone in the upper and lower extremity. Normal muscle bulk. No fasciculations. No abnormal movements or posturing. He moves the right arm, and legs REFLEXES: Deep tendon reflexes are symmetrical. Upgoing toes in the left foot CEREBELLAR/COORDINATION: Deferred GAIT/STATION: deferred laboratory and microbiology Laboratory Tests 12/10/24 15:42 12/10/24 05:49 12/08/24 05:09 Test 12/10/24 05:49 Range/Units Serum Glucose 163 H 74-106 mg/dL Problem List Acute respiratory distress in the evening on 12/04/2028 Acute right MCA territory stroke with acute left hemiparesis Atrial fibrillation Altered mental status Secondary to acute stroke Metabolic encephalopathy Rule out seizure activity End-stage kidney failure Acute neck pain, etiology unclear Mass GI bleeding status post RBC transfusion History of colon cancer Gait disturbance, maybe secondary to drug effects Assessment/Plan Monitoring Supportive treatment Oxygen Aspirin ME 300 mg daily Lipitor 40 mg daily Carafate 1 g b.i.d. Protonix 40 mg b.i.d. Nephrology on case/hemodialysis GI specialist on case More recommendation per clinical course This medical document was created using an electronic medical record system with [employer] dictation system. Although this document has been carefully reviewed, there may still be some phonetic and typographical errors. These areas are purely typographical due to imperfections of the software programs, and do not reflect any compromise in the patient's medical care. Prognosis poor Dietary Evaluation Review Comments: 1) Nepro Carbsteady 240ml TID 2) Consider renal standard diet 3) Monitor PO intake, lab values, weight trend, and I/O Expected Outcomes/Goals: To meet >75% estimated needs lab values to improve Fu 3-5 days Plan discussed with: Other CC Plasma Assessment Blood Product Administration S: [id number] PATSY SALGADO MD Dec 10, 2024 22:27
--- NOTE | 2024-12-10 23:37 | DVHOP ---
DATE OF SURGERY: 12/10/2024 PREOPERATIVE DIAGNOSES: Dehydration and malnutrition. POSTOPERATIVE DIAGNOSES: Dehydration and malnutrition. PROCEDURE: PEG placement in conjunction with Dr. Sonya Campbell's EGD endoscopy. SURGEON: Conrad Campbell MD ESTIMATED BLOOD LOSS: Close to less than 1 mL. DRAINS: No drains were used. COMPLICATIONS: No complications were encountered. DESCRIPTION OF PROCEDURE: The patient was prepped and draped in the usual sterile fashion in the supine position with the left upper abdomen area exposed. Endoscopy was carried out by Dr. Sonya Campbell, and the light was seen shining through in the upper abdomen. A suitable spot was selected. Lidocaine was infiltrated, and a small incision was applied. Then, the Angiocath needle was advanced through the incision into the anterior wall of the stomach and visualized by the endoscope. The needle was pulled out. The trocar was left in place, and the guidewire was advanced into position and grabbed via the endoscope and pulled it from the mouth. The PEG tube was engaged with the guidewire, pulled back into the mouth and into the esophagus and into the anterior wall of the stomach. The cuff was well positioned, and the PEG tube was withdrawn out of the abdominal wall. Final dressing was applied, and the final connections were applied and the repeat endoscopy was carried out, and the positioning was found to be satisfactory at the end of the procedure with no complications. The patient was returned to the recovery room in a stable condition. The EGD part will be dictated by Dr. Sonya Campbell. MD RADHAMES Lowe/MARIA E/PERRY TID: [id number] RECEIPT: [id number] cc:
[2024-12-11] VITALS (18 sets, daily range): BP systolic 123–156; BP diastolic 48–65; PULSE 111–128; RESP 16–30; TEMP 98.2–102.4; O2SAT 85–100
[2024-12-11] MEDS: EPOETIN ALFA-EPBX 4,000 UNIT/ML VIAL SC ONE (01:28)
[2024-12-11] MEDS: ENSURE CLEAR Apple 8oz Carton PO SCH (05:03)
[2024-12-11 10:02] LABS: Chloride 99 mmol/L (98-107); Potassium 4.7 mmol/L (3.5-5.1); Sodium 140 mmol/L (136-145)
[2024-12-11 10:32] LABS: Anion Gap 17 (5-15); Calcium 10.2 mg/dL (8.7-10.4); Carbon Dioxide 24 mmol/L (20-31)
[2024-12-11 10:37] LABS: BUN/Creatinine Ratio 14.2 (10.0-20.0)
[2024-12-11 10:38] LABS: Magnesium 2.2 mg/dL (1.6-2.6); Total Protein 7.6 g/dL (5.7-8.2)
[2024-12-11 10:39] LABS: Alanine Aminotransferase 22 U/L (7-40); Albumin 4.7 g/dL (3.2-4.8)
[2024-12-11 10:44] LABS: Blood Urea Nitrogen 66 mg/dL (9-23); Glucose 147 mg/dL (74-106)
[2024-12-11 10:45] LABS: Alkaline Phosphatase 133 U/L (46-116); Bilirubin, Total 2.2 mg/dL (0.2-1.0)
[2024-12-11] MEDS: Nepro With Carbsteady ButterPecan 8oz Carton PO SCH (11:30)
[2024-12-11] MEDS: Nepro With Carb Steady 1 Liter Bottle NG SCH (15:01)
--- NOTE | 2024-12-11 15:13 | DVHPN2 ---
Progress Note - Dictate Date Seen: Dec 11, 2024 Has the PT tested + for MRSA If YES, has PT been informed?: No Medical Necessity Reason Pt with a Central, PICC or Fol: Yes The following are medically ne: Ashraf Catheter vital signs Vital Sign Date Time Temp Pulse Resp B/P (MAP) Pulse Ox O2 Delivery O2 Flow Rate FiO2 12/11/24 14:40 115 16 99 12/11/24 14:34 Nasal Cannula* 3 32 12/11/24 13:00 98.2 156/65 (95) 98.2 Total Intake and Output 12/10/24 12/10/24 12/11/24 15:00 23:00 07:00 Intake Total 50 ml 0 ml Output Total 200 ml 100 ml Balance -150 ml -100 ml medications Current Medications Medications Dose Ordered Sig/Delfino Route Start Time Stop Time Status Last Admin Dose Admin Amlodipine Besylate 10 mg DAILY PO 11/22/24 10:00 11/25/24 10:19 10 MG Hydralazine HCl 10 mg Q4HP PRN IV 11/23/24 09:15 12/09/24 00:11 10 MG Pantoprazole Sodium 40 mg BID IV 11/23/24 22:00 12/11/24 09:55 40 MG Sucralfate 1 gm BID PO 11/25/24 22:00 Diagnostic Test (Pha) 1 strip Q6HR 11/25/24 18:00 12/11/24 05:02 1 STRIP Insulin Human Regular FOLLOW SLIDING SCALE Q6HR SC 11/25/24 18:00 12/11/24 10:35 2 UNITS Dextrose 50 ml UD IV 11/25/24 17:15 Atorvastatin Calcium 40 mg HS PO 11/26/24 22:00 Amiodarone HCl 200 mg Q12HR PO 11/28/24 22:00 Metoprolol Tartrate 1.25 mg Q6HPRN PRN IV 11/28/24 18:30 12/08/24 22:01 1.25 MG Epoetin Rolando-epbx 4,000 unit MWF SC 12/01/24 14:00 UNV Enteral Nutritional Formula 1,000 ml 40ML/HR NG 12/02/24 18:00 12/11/24 15:01 1,000 ML Fat Emulsion Intravenous 150 ml/Sodium Chloride 40 meq/ Potassium Chloride 20 meq/ Multivitamins 10 ml/Chromium/ Copper/Manganese/ Zinc 1 ml/Amino Acids/Dextrose/ Purified Water 1,431 ml @ 59 mls/hr [id number] IV 12/03/24 22:00 12/04/24 21:59 Cancel Ipratropium [place] 0.5 mg Q4HR NEB 12/05/24 01:00 12/11/24 14:34 0.5 MG Furosemide 20 mg DAILY IV 12/06/24 10:00 12/11/24 09:55 20 MG Epoetin Rolando-epbx 6,000 unit MWF@2100 SC 12/08/24 21:00 12/08/24 20:59 6,000 UNIT Amino Acids 0 ml @ 0 mls/hr PER PHARMACY IV 12/07/24 22:00 Amino Acids/ Electrolytes/ Dextrose 1,000 ml @ 41 mls/hr DAILY@2200 IV 12/07/24 22:00 12/11/24 00:28 41 MLS/HR Albumin Human 100 ml @ 100 mls/hr Q1HP PRN IV 12/08/24 10:15 12/08/24 10:29 100 MLS/HR Acetaminophen 1,000 mg Q8H PRN IV 12/08/24 17:15 12/08/24 17:17 1,000 MG Enteral Nutritional Formula 240 ml Q4HR PO 12/11/24 11:30 laboratory and microbiology Laboratory Tests 12/11/24 09:10 12/10/24 15:42 12/08/24 05:09 Test 12/11/24 09:10 Range/Units Serum Glucose 147 H 74-106 mg/dL Assessment/Plan Acute hypoxemic respiratory failure Noninvasive ventilation Respiratory alkalosis pleural effusion atelectases pneumonia End-stage renal disease hemodialysis The patient is seen and examined events low oxygen requirements on 2 liters nasal cannula no distress Management plan continue supportive care 02 s needed keep sats above 90% bipap prn for increased work of breathing Dialysis per Nephrology with fluid removal Bronchodilators NPO in view of risk For aspiration TPN for nutrition Broad-spectrum antibiotics for pneumonia Dietary Evaluation Review Comments: 1) Nepro Carbsteady 240ml TID 2) Consider renal standard diet 3) Monitor PO intake, lab values, weight trend, and I/O Expected Outcomes/Goals: To meet >75% estimated needs lab values to improve Fu 3-5 days CC Plasma Assessment Blood Product Administration S: [id number] TORSTEN GREEN MD Dec 11, 2024 15:13
--- NOTE | 2024-12-11 16:58 | DVHPN2 ---
Subjective Patient's has a PEG tube placement currently on tube feeding, [facility] and nutrition. 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 Medications Current Medications Medications Dose Ordered Sig/Delfino Route Start Time Stop Time Status Last Admin Dose Admin Amlodipine Besylate 10 mg DAILY PO 11/22/24 10:00 11/25/24 10:19 10 MG Hydralazine HCl 10 mg Q4HP PRN IV 11/23/24 09:15 12/09/24 00:11 10 MG Pantoprazole Sodium 40 mg BID IV 11/23/24 22:00 12/11/24 09:55 40 MG Sucralfate 1 gm BID PO 11/25/24 22:00 Diagnostic Test (Pha) 1 strip Q6HR 11/25/24 18:00 12/11/24 05:02 1 STRIP Insulin Human Regular FOLLOW SLIDING SCALE Q6HR SC 11/25/24 18:00 12/11/24 10:35 2 UNITS Dextrose 50 ml UD IV 11/25/24 17:15 Atorvastatin Calcium 40 mg HS PO 11/26/24 22:00 Amiodarone HCl 200 mg Q12HR PO 11/28/24 22:00 Metoprolol Tartrate 1.25 mg Q6HPRN PRN IV 11/28/24 18:30 12/08/24 22:01 1.25 MG Epoetin Rolando-epbx 4,000 unit MWF SC 12/01/24 14:00 UNV Enteral Nutritional Formula 1,000 ml 40ML/HR NG 12/02/24 18:00 12/11/24 15:01 1,000 ML Fat Emulsion Intravenous 150 ml/Sodium Chloride 40 meq/ Potassium Chloride 20 meq/ Multivitamins 10 ml/Chromium/ Copper/Manganese/ Zinc 1 ml/Amino Acids/Dextrose/ Purified Water 1,431 ml @ 59 mls/hr [id number] IV 12/03/24 22:00 12/04/24 21:59 Cancel Ipratropium [place] 0.5 mg Q4HR NEB 12/05/24 01:00 12/11/24 14:34 0.5 MG Furosemide 20 mg DAILY IV 12/06/24 10:00 12/11/24 09:55 20 MG Epoetin Rolando-epbx 6,000 unit MWF@2100 SC 12/08/24 21:00 12/08/24 20:59 6,000 UNIT Amino Acids 0 ml @ 0 mls/hr PER PHARMACY IV 12/07/24 22:00 Amino Acids/ Electrolytes/ Dextrose 1,000 ml @ 41 mls/hr DAILY@2200 IV 12/07/24 22:00 12/11/24 00:28 41 MLS/HR Albumin Human 100 ml @ 100 mls/hr Q1HP PRN IV 12/08/24 10:15 12/08/24 10:29 100 MLS/HR Acetaminophen 1,000 mg Q8H PRN IV 12/08/24 17:15 12/08/24 17:17 1,000 MG Enteral Nutritional Formula 240 ml Q4HR PO 12/11/24 11:30 Laboratory Results Laboratory Tests 12/08/24 05:09 12/10/24 15:42 12/11/24 09:10 Chemistry Test 12/11/24 09:10 Albumin 4.7 g/dL (3.2-4.8) Calcium Level 10.2 mg/dL (8.7-10.4) Magnesium Level 2.2 mg/dL (1.6-2.6) Phosphorus Level 2.3 mg/dL (2.4-5.1) L Total Protein 7.6 g/dL (5.7-8.2) LFT Test 12/11/24 09:10 Alanine Aminotransferase (ALT) 22 U/L (7-40) Alkaline Phosphatase 133 U/L (46-116) H Aspartate Amino Transferase (AST) 36 U/L (13-40) Total Bilirubin 2.2 mg/dL (0.2-1.0) H Urinalysis Test 11/23/24 05:50 11/25/24 09:23 Urine Amorphous Crystals Few /hpf (None Seen) Urine Color Light-brown (Yellow) Urine Clarity Turbid (Clear) H Urine pH 8.5 (5.0-9.0) Urine Specific [place] 1.011 (1.001-1.035) Urine Protein 3+ (Negative) H Urine Ketones Trace (Negative) Urine Blood 3+ /uL (Negative) H Urine Nitrite Negative (Negative) Urine Bilirubin Negative (Negative) Urine Urobilinogen Normal mg/dL (Negative) Urine Leukocyte Esterase 3+ /uL (Negative) Urine RBC 2271 /hpf (0 - 3) Urine WBC Clumps Present /hpf (None Seen) Urine Microscopic WBC 312 /HPF (0-3) H Urine Squamous Epithelial Cells None seen /hpf (<5) Urine Bacteria None seen /hpf (None Seen) Urine Glucose Trace mg/dL (Normal) Microbiology Microbiology Date/Time Source Procedure Growth Status 12/07/24 22:00 Nose MRSA Screen - Final Complete 11/25/24 09:23 Urine - Midstream Clean Catch Urine Culture - Final Complete Assessment/Plan Assessment/Plan 78-year-old male with a known history of colon cancer status post partial colectomy status post oral chemotherapy currently in remission, end-stage renal disease on hemodialysis, hypertension, COPD initially presented to hospital with a black tarry stools found to have 1. Acute/subacute right MCA with left-sided hemiplegia 2. Acute delirium/acute encephalopathy suspect secondary to acute CVA 3.Melanotic stools rule out upper GI bleed, status post EGD showed gastro duodenitis 4. History of colon cancer status post partial colectomy status post chemotherapy, status post colostomy 5. End-stage renal disease on hemodialysis 6.. Hypertension 7. 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 -continue Protonix Carafate, -plan of care discussed with the patient and patient's bedside RN as well as patient's niece at bedside. Plan discussed with: Patient, Other (Patient's niece at bedside.) My Orders Orders - BRIE BOLAND MD Procedure Category Date Status Time Comprehensive LAB 12/12/24 Verified Metabolic Panel 05:00 Magnesium LAB 12/12/24 Verified 05:00 Phosphorus LAB 12/12/24 Verified 05:00 Clinimix Per Pharmacy [facility] 12/11/24 In Process 22:00 Date of Service: Dec 11, 2024 Billing Provider: BRIE BOLAND MD Common Visit Codes: [id number] INP/OBS CARE(MOD) BRIE BOLAND MD Dec 11, 2024 16:58
--- NOTE | 2024-12-11 18:09 | DVHPN2 ---
Progress Note Date Seen: Dec 11, 2024 Has the PT tested + for MRSA If YES, has PT been informed?: No Medical Necessity Reason Pt with a Central, PICC or Fol: Yes The following are medically ne: Ashraf Catheter Subjective Patient reports: Other Review of Systems: NEURO:Abnormal, Deferred (Patient is poor historian) Objective vital signs Vital Sign Date Time Temp Pulse Resp B/P (MAP) Pulse Ox O2 Delivery O2 Flow Rate FiO2 12/11/24 17:40 100.4 100.4 12/11/24 17:00 117 20 144/62 (89) 94 12/11/24 14:34 Nasal Cannula* 3 32 Total Intake and Output 12/10/24 12/10/24 12/11/24 15:00 23:00 07:00 Intake Total 50 ml 0 ml Output Total 200 ml 100 ml Balance -150 ml -100 ml medications Current Medications Medications Dose Ordered Sig/Delfino Route Start Time Stop Time Status Last Admin Dose Admin Amlodipine Besylate 10 mg DAILY PO 11/22/24 10:00 11/25/24 10:19 10 MG Hydralazine HCl 10 mg Q4HP PRN IV 11/23/24 09:15 12/09/24 00:11 10 MG Pantoprazole Sodium 40 mg BID IV 11/23/24 22:00 12/11/24 09:55 40 MG Sucralfate 1 gm BID PO 11/25/24 22:00 Diagnostic Test (Pha) 1 strip Q6HR 11/25/24 18:00 12/11/24 05:02 1 STRIP Insulin Human Regular FOLLOW SLIDING SCALE Q6HR SC 11/25/24 18:00 12/11/24 10:35 2 UNITS Dextrose 50 ml UD IV 11/25/24 17:15 Atorvastatin Calcium 40 mg HS PO 11/26/24 22:00 Amiodarone HCl 200 mg Q12HR PO 11/28/24 22:00 Metoprolol Tartrate 1.25 mg Q6HPRN PRN IV 11/28/24 18:30 12/08/24 22:01 1.25 MG Epoetin Rolando-epbx 4,000 unit MWF SC 12/01/24 14:00 UNV Enteral Nutritional Formula 1,000 ml 40ML/HR NG 12/02/24 18:00 12/11/24 15:01 1,000 ML Fat Emulsion Intravenous 150 ml/Sodium Chloride 40 meq/ Potassium Chloride 20 meq/ Multivitamins 10 ml/Chromium/ Copper/Manganese/ Zinc 1 ml/Amino Acids/Dextrose/ Purified Water 1,431 ml @ 59 mls/hr [id number] IV 12/03/24 22:00 12/04/24 21:59 Cancel Ipratropium [place] 0.5 mg Q4HR NEB 12/05/24 01:00 12/11/24 14:34 0.5 MG Furosemide 20 mg DAILY IV 12/06/24 10:00 12/11/24 09:55 20 MG Epoetin Rolando-epbx 6,000 unit MWF@2100 SC 12/08/24 21:00 12/08/24 20:59 6,000 UNIT Amino Acids 0 ml @ 0 mls/hr PER PHARMACY IV 12/07/24 22:00 Amino Acids/ Electrolytes/ Dextrose 1,000 ml @ 41 mls/hr DAILY@2200 IV 12/07/24 22:00 12/11/24 00:28 41 MLS/HR Albumin Human 100 ml @ 100 mls/hr Q1HP PRN IV 12/08/24 10:15 12/08/24 10:29 100 MLS/HR Acetaminophen 1,000 mg Q8H PRN IV 12/08/24 17:15 12/08/24 17:17 1,000 MG Enteral Nutritional Formula 240 ml Q4HR PO 12/11/24 11:30 Examination: ABDOMEN:Abnormal laboratory and microbiology Laboratory Tests 12/11/24 09:10 12/10/24 15:42 12/08/24 05:09 Test 12/11/24 09:10 Range/Units Serum Glucose 147 H 74-106 mg/dL Microbiology Date/Time Source Procedure Growth Status 12/07/24 22:00 Nose MRSA Screen - Final Complete 11/25/24 09:23 Urine - Midstream Clean Catch Urine Culture - Final Complete Problem List/Assessment/Plan Problem List/Assessment/Plan 1. ESRD on HD- 2. HTN 3. hx of COPD 4. Anemia s/p PRBC transfusion CVA fronto parietal Status post PEG tube recs next hd 12/12 UF as tolerated Plan discussed with: Other My Orders My Orders Orders - GERMAN WATERMAN MD Procedure Category Date Status Time Hemodialysis Orders ORDERS 12/12/24 Verified 04:00 Dietary Evaluation Review Comments: 1) Nepro Carbsteady 240ml TID 2) Consider renal standard diet 3) Monitor PO intake, lab values, weight trend, and I/O Expected Outcomes/Goals: To meet >75% estimated needs lab values to improve Fu 3-5 days CC Plasma Assessment Blood Product Administration S: [id number] GERMAN WATERMAN MD Dec 11, 2024 18:09
--- NOTE | 2024-12-11 22:05 | DVHPN2 ---
Progress Note - Dictate Date Seen: Dec 11, 2024 Has the PT tested + for MRSA If YES, has PT been informed?: No Medical Necessity Reason Pt with a Central, PICC or Fol: Yes The following are medically ne: Ashraf Catheter Subjective 78-year-old male with a history of colon cancer (s/p partial colectomy, chemotherapy, and colostomy), ESRD on hemodialysis, COPD, hypertension, dyslipidemia, and recent acute right MCA infarction with resultant left-sided hemiparesis and altered mental status. The patient's neurological status is improving, patient is more awake and communicating Postop day 1. S/P endoscopy with PEG tube placement vital signs Vital Sign Date Time Temp Pulse Resp B/P (MAP) Pulse Ox O2 Delivery O2 Flow Rate FiO2 12/11/24 20:00 122 12/11/24 20:00 20 Nasal Cannula* 2 28 12/11/24 18:44 92 12/11/24 17:40 100.4 100.4 12/11/24 17:00 144/62 (89) Total Intake and Output 12/10/24 12/10/24 12/11/24 15:00 23:00 07:00 Intake Total 50 ml 451 ml Output Total 200 ml 100 ml Balance -150 ml 351 ml medications Current Medications Medications Dose Ordered Sig/Delfino Route Start Time Stop Time Status Last Admin Dose Admin Amlodipine Besylate 10 mg DAILY PO 11/22/24 10:00 11/25/24 10:19 10 MG Hydralazine HCl 10 mg Q4HP PRN IV 11/23/24 09:15 12/09/24 00:11 10 MG Pantoprazole Sodium 40 mg BID IV 11/23/24 22:00 12/11/24 20:36 40 MG Sucralfate 1 gm BID PO 11/25/24 22:00 12/11/24 20:35 1 GM Diagnostic Test (Pha) 1 strip Q6HR 11/25/24 18:00 12/11/24 18:17 1 STRIP Insulin Human Regular FOLLOW SLIDING SCALE Q6HR SC 11/25/24 18:00 12/11/24 18:16 4 UNITS Dextrose 50 ml UD IV 11/25/24 17:15 Atorvastatin Calcium 40 mg HS PO 11/26/24 22:00 12/11/24 20:36 40 MG Amiodarone HCl 200 mg Q12HR PO 11/28/24 22:00 12/11/24 20:35 200 MG Metoprolol Tartrate 1.25 mg Q6HPRN PRN IV 11/28/24 18:30 12/08/24 22:01 1.25 MG Epoetin Rolando-epbx 4,000 unit MWF CA 12/01/24 14:00 UNV Enteral Nutritional Formula 1,000 ml 40ML/HR NG 12/02/24 18:00 12/11/24 15:01 1,000 ML Fat Emulsion Intravenous 150 ml/Sodium Chloride 40 meq/ Potassium Chloride 20 meq/ Multivitamins 10 ml/Chromium/ Copper/Manganese/ Zinc 1 ml/Amino Acids/Dextrose/ Purified Water 1,431 ml @ 59 mls/hr [id number] IV 12/03/24 22:00 12/04/24 21:59 Cancel Ipratropium [place] 0.5 mg Q4HR NEB 12/05/24 01:00 12/11/24 18:44 0.5 MG Furosemide 20 mg DAILY IV 12/06/24 10:00 12/11/24 09:55 20 MG Epoetin Rolando-epbx 6,000 unit MWF@2100 CA 12/08/24 21:00 12/08/24 20:59 6,000 UNIT Amino Acids 0 ml @ 0 mls/hr PER PHARMACY IV 12/07/24 22:00 Amino Acids/ Electrolytes/ Dextrose 1,000 ml @ 41 mls/hr DAILY@2200 IV 12/07/24 22:00 12/11/24 20:35 41 MLS/HR Albumin Human 100 ml @ 100 mls/hr Q1HP PRN IV 12/08/24 10:15 12/08/24 10:29 100 MLS/HR Acetaminophen 1,000 mg Q8H PRN IV 12/08/24 17:15 12/08/24 17:17 1,000 MG Enteral Nutritional Formula 240 ml Q4HR PO 12/11/24 11:30 objective * General: Alert, oriented more awake * Abdomen: Soft, mildly tender LUQ, non-distended, bowel sounds present. Colostomy bag intact, minimal output, midline scar Epigastric to L quadrant gastrostomy tube site appears to be clean; dressing is dry * Cardiovascular: Regular rhythm, mild tachycardia. * Pulmonary: Clear to auscultation with bibasilar crackles. * Other: Stable. laboratory and microbiology Laboratory Tests 12/11/24 09:10 12/10/24 15:42 12/08/24 05:09 Test 12/11/24 09:10 Range/Units Serum Glucose 147 H 74-106 mg/dL Problems(with codes): (1) Generalized weakness (2) ESRD (end stage renal disease) on dialysis (3) Acute upper GI bleed (4) Anemia (5) End-stage renal disease on hemodialysis Prognosis Plan Nepro bolus feedings at 240 mL every 4 hours If a drip is required then the patient can beyond Nepro at 50 mL/hour Continue to monitor labs Supportive care Awaiting placement at SNF for physical therapy and rehab Dietary Evaluation Review Comments: 1) Nepro Carbsteady 240ml TID 2) Consider renal standard diet 3) Monitor PO intake, lab values, weight trend, and I/O Expected Outcomes/Goals: To meet >75% estimated needs lab values to improve Fu 3-5 days Plan discussed with: Patient, Other (Nurse) CC Plasma Assessment Blood Product Administration S: [id number] ENID NATION MD Dec 11, 2024 22:05
[2024-12-12] VITALS (68 sets, daily range): BP systolic 74–153; BP diastolic 14–80; PULSE 84–148; RESP 20–36; TEMP 97.5–102.3; O2SAT 88–100
[2024-12-12 06:49] LABS: Albumin 4.4 g/dL (3.2-4.8); Anion Gap 17 (5-15); BUN/Creatinine Ratio 16.7 (10.0-20.0); Calcium 9.9 mg/dL (8.7-10.4); Carbon Dioxide 23 mmol/L (20-31); Magnesium 2.4 mg/dL (1.6-2.6); Potassium 4.7 mmol/L (3.5-5.1); Sodium 138 mmol/L (136-145); Total Protein 7.5 g/dL (5.7-8.2)
[2024-12-12 06:57] LABS: Chloride 98 mmol/L (98-107); Glucose 148 mg/dL (74-106)
[2024-12-12 06:58] LABS: Alanine Aminotransferase 56 U/L (7-40); Alkaline Phosphatase 158 U/L (46-116); Bilirubin, Total 1.5 mg/dL (0.2-1.0)
[2024-12-12 07:00] LABS: Blood Urea Nitrogen 105 mg/dL (9-23)
--- NOTE | 2024-12-12 07:32 | ECG ---
[facility] Test Date: 2024-12-12 Test Time: 07:29:44 Pat Name: LAURA NG Department: Room: [address] [place] [address] Gender: M [employer] Detective: BERONICA : 1945 Requested By: FENG BETTENCOURT Order Number: [id number] Reading MD: Misha Leal Measurements Intervals Fellows Rate: 133 P: 105 AL: 113 QRS: -16 QRSD: 80 T: 93 QT: 304 QTc: 453 Interpretive Statements Sinus tachycardia LVH with secondary repolarization abnormality Electronically Signed On 12-15-2024 22:15:28 PDT by Misha Leal Please click the below link to view image of tracing.
[2024-12-12] MEDS: METOPROLOL TARTRATE 25 MG TAB PO ONE (10:30)
[2024-12-12 10:39] LABS: Hematocrit 24.8 % (41.0-53.0); Hemoglobin 8.0 g/dL (13.5-17.5); Mean Corpuscular Hemoglobin 29.4 pg (28.0-32.0); Mean Corpuscular Volume 91.0 fL (80.0-100.0); Nucleated Red Blood Cells % 0.1 %
[2024-12-12] MEDS ORDERED: AMIODARONE BOLUS KIT 100 ML IV ONE (11:00)
[2024-12-12] MEDS ORDERED: AMIODARONE 360mg/200mL PREMIX 200 ML IV ONE (11:15)
--- NOTE | 2024-12-12 11:54 | DVH ---
INDICATION: sob TECHNIQUE: Single AP view of the chest WID: COMPARISON: XY CHEST PORTABLE on DOS: 12/07/24, XY CHEST XRAY 1 VIEW on DOS: 12/05/24, XY CHEST XRAY 1 V IEW on DOS: 12/04/24, XY CHEST TWO VIEWS ROUTINE on DOS: 10/07/22, XY CHEST PORTABLE on DOS: 12/07/24 FINDINGS: Lines and tubes: Right IJ central venous catheter with the tip projecting over the low SVC. Chest: Mild cardiomegaly and pulmonary vascular congestion. Calcified plaque projects over the aortic arch. Small to moderate left pleural effusion and left basilar consolidation. No pneumothorax. The osseous structures are grossly intact. IMPRESSION: Mild cardiomegaly and mild pulmonary vascular congestion. Small to moderate left pleural effusion and left basilar consolidation likely atelectasis though pneu monia could contribute to this appearance.
[2024-12-12] MEDS: DIGOXIN (250MCG/ML) 2 ML AMPULE IV ONE (12:11)
[2024-12-12 12:30] LABS: Base Excess 2.9 mmol/L (-2.0-3.0)
--- NOTE | 2024-12-12 12:40 | DVHPN2 ---
Consult Progress Note Subjective Other Systems: Cardiology reconsulted to see patient who went into atrial fibrillation with rapid ventricular response. At the time of assessment, the patient has been increased work of breathing. A twelve lead electrocardiogram reveals atrial fibrillation with rapid ventricular response. The patient was upgraded to the intensive care unit. Objective vital signs Vital Sign Date Time Temp Pulse Resp B/P (MAP) Pulse Ox O2 Delivery O2 Flow Rate FiO2 12/12/24 12:11 148 12/12/24 12:10 88/37 12/12/24 09:54 94 Nasal Cannula 5.0 12/12/24 09:54 40 12/12/24 09:53 32 12/12/24 09:45 97.5 97.5 Total Intake and Output 12/11/24 12/11/24 12/12/24 15:00 23:00 07:00 Intake Total 40 ml 0 ml Output Total 50 ml 50 ml Balance -10 ml -50 ml medications Current Medications Medications Dose Ordered Sig/Delfino Route Start Time Stop Time Status Last Admin Dose Admin Amlodipine Besylate 10 mg DAILY PO 11/22/24 10:00 11/25/24 10:19 10 MG Hydralazine HCl 10 mg Q4HP PRN IV 11/23/24 09:15 12/09/24 00:11 10 MG Pantoprazole Sodium 40 mg BID IV 11/23/24 22:00 12/12/24 11:19 40 MG Sucralfate 1 gm BID PO 11/25/24 22:00 12/12/24 11:19 1 GM Diagnostic Test (Pha) 1 strip Q6HR 11/25/24 18:00 12/12/24 12:20 1 STRIP Insulin Human Regular FOLLOW SLIDING SCALE Q6HR SC 11/25/24 18:00 12/12/24 03:33 4 UNITS Dextrose 50 ml UD IV 11/25/24 17:15 Atorvastatin Calcium 40 mg HS PO 11/26/24 22:00 12/11/24 20:36 40 MG Metoprolol Tartrate 1.25 mg Q6HPRN PRN IV 11/28/24 18:30 12/12/24 11:10 1.25 MG Epoetin Rolando-epbx 4,000 unit MWF SC 12/01/24 14:00 UNV Enteral Nutritional Formula 1,000 ml 40ML/HR NG 12/02/24 18:00 12/11/24 15:01 1,000 ML Fat Emulsion Intravenous 150 ml/Sodium Chloride 40 meq/ Potassium Chloride 20 meq/ Multivitamins 10 ml/Chromium/ Copper/Manganese/ Zinc 1 ml/Amino Acids/Dextrose/ Purified Water 1,431 ml @ 59 mls/hr [id number] IV 12/03/24 22:00 12/04/24 21:59 Cancel Ipratropium [place] 0.5 mg Q4HR NEB 12/05/24 01:00 12/12/24 09:47 0.5 MG Furosemide 20 mg DAILY IV 12/06/24 10:00 12/12/24 11:20 20 MG Epoetin Rolando-epbx 6,000 unit MWF@2100 SC 12/08/24 21:00 12/08/24 20:59 6,000 UNIT Amino Acids 0 ml @ 0 mls/hr PER PHARMACY IV 12/07/24 22:00 Amino Acids/ Electrolytes/ Dextrose 1,000 ml @ 41 mls/hr DAILY@2200 IV 12/07/24 22:00 12/11/24 20:35 41 MLS/HR Albumin Human 100 ml @ 100 mls/hr Q1HP PRN IV 12/08/24 10:15 12/08/24 10:29 100 MLS/HR Acetaminophen 1,000 mg Q8H PRN IV 12/08/24 17:15 12/12/24 07:00 1,000 MG Enteral Nutritional Formula 240 ml Q4HR PO 12/11/24 11:30 12/12/24 10:49 240 ML Metoprolol Tartrate 25 mg BID PO 12/12/24 22:00 Examination: GENERAL:Abnormal, LUNGS:Abnormal (Coarse throughout), CVS:Abnormal (Atrial fibrillation with rapid ventricular response), NEURO:Abnormal (Confused) laboratory and microbiology Laboratory Tests 12/12/24 05:13 Test 12/12/24 05:13 Range/Units Serum Glucose 148 H 74-106 mg/dL Problem List/Assessment/Plan Problem List/Assessment/Plan Atrial fibrillation with a rapid ventricular response Severe anemia status post PRBC transfusions Acute right MCA territory CVA NSTEMI, likely type 2 secondary to above Acute hypoxic respiratory failure, ?Aspiration pneumonia ?Sepsis Mild tricuspid regurgitation End-stage renal disease on hemodialysis History of colon cancer status post colectomy and colostomy COPD Plan/Recommendations (Dr. Serrato): * Transthoracic echocardiogram reveals EF 55% * [id number] VASc score: 5 points, HAS-BLED score: 4 points * GI has cleared the patient to initiate Eliquis 2.5 mg b.i.d. through PEG tube * Antiarrhythmic agent, amiodarone bolus followed by IV drip per protocol * Beta-freedom for rate control * Monitor and replete electrolytes as needed, keep potassium greater than four and magnesium greater than two * Closely monitor hemoglobin and hematocrit, transfuse as needed * Close Cardiac surveillance The patient was initially seen by the cardiology team on 11/27/2024 when he was noted to go into atrial fibrillation with a rapid ventricular response. At that time, medical management was done and the patient converted into a normal sinus rhythm. Cardiology had since signed off. Today, the patient was noted to go back into an atrial fibrillation with rapid ventricular response rhythm. A twelve lead electrocardiogram was obtained and confirmed rhythm. At the time of assessment, the patient was noted to have coarse breath sounds and increased work of breathing and SpO2 82% on room air. The patient was placed on a high- flow nasal cannula and transferred down to the intensive care unit. Amiodarone IV bolus was ordered followed by the amiodarone IV drip protocol. Patient also noted to have an elevated temperature and elevated WBCs today. Primary team suspecting possible aspiration pneumonia. Recommend to treat the underlying cause to improve heart rate. Continue with close cardiac surveillance. This medical document was created using an electronic medical record system with voice recognition software and computerized dictation system. Although this document has been carefully reviewed, there might still be some phonetic and typographical errors. Occasional wrong-word or ``sound-alike substitutions may have occurred due to the inherent limitations of voice recognition software. These areas are purely typographical due to imperfections of the software programs and do not reflect any compromise in the patient's medical care. Please read the chart carefully and recognize, using context, where these substitutions have occurred. Plan discussed with: Other (Bedside RN) Dietary Evaluation Review Comments: 1) Nepro Carbsteady 240ml TID 2) Consider renal standard diet 3) Monitor PO intake, lab values, weight trend, and I/O Expected Outcomes/Goals: To meet >75% estimated needs lab values to improve Fu 3-5 days CC Plasma Assessment Blood Product Administration S: [id number] Date of Service: Dec 12, 2024 Billing Provider: ENMANUEL OCHOA Common Visit Codes: [id number] CARE 30-74 MIN ENMANUEL OCHOA Dec 12, 2024 12:39
[2024-12-12] MEDS: AMIODARONE 360mg/200mL PREMIX 200 ML IV ONE ×3 (12:45→19:30)
[2024-12-12] MEDS: AMIODARONE BOLUS KIT 100 ML IV ONE ×2 (12:45→14:03)
[2024-12-12] MEDS: NOREPINEPHRINE 8 MG/250ML KIT 250 ML IV ONE (13:11)
[2024-12-12] MEDS: NOREPINEPHRINE 8 MG/250ML KIT 250 ML IV SCH (14:19)
[2024-12-12] MEDS: PHENYLEPHRINE IV 250 ML IV SCH (16:00)
[2024-12-12 16:30] LABS: Hematocrit 24.0 % (41.0-53.0); Hemoglobin 7.9 g/dL (13.5-17.5); Mean Corpuscular Hemoglobin 29.4 pg (28.0-32.0); Mean Corpuscular Volume 89.8 fL (80.0-100.0); Nucleated Red Blood Cells % 0.3 %
[2024-12-12 16:46] LABS: Lactic Acid w/Reflex 5.1 mmol/L (0.4-2.0)
--- NOTE | 2024-12-12 17:01 | DVHPN2 ---
Subjective Patient is status post PEG tube placement, was on tube feeding, went into respiratory distress on the floor suspected aspiration pneumonitis, upgraded to ICU on high-flow oxygen. Changes from previous H/P or p: Changes (Patient went into respiratory distress upgraded to ICU.) Objective Vitals Vital Signs Date Time Temp Pulse Resp B/P (MAP) Pulse Ox O2 Delivery O2 Flow Rate FiO2 12/12/24 15:05 94 Hi-Flow Heated NC+ 60 80 80 12/12/24 15:01 109 27 12/12/24 14:19 91/30 12/12/24 13:15 101.3 101.3 Intake/Output Intake and Output 12/12/24 07:00 Intake Total 40 ml Output Total 100 ml Balance -60 ml Intake Oral 0 ml Tube Feeding 40 ml Output Urine Total 100 ml Exam HEENT pupils are reactive Neck is supple CV is S1-S2 regular rate and rhythm Respiratory diminished breath sounds bases GI positive bowel sound , positive colostomy Extremity no edema 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 Medications Current Medications Medications Dose Ordered Sig/Delfino Route Start Time Stop Time Status Last Admin Dose Admin Amlodipine Besylate 10 mg DAILY PO 11/22/24 10:00 11/25/24 10:19 10 MG Hydralazine HCl 10 mg Q4HP PRN IV 11/23/24 09:15 12/09/24 00:11 10 MG Pantoprazole Sodium 40 mg BID IV 11/23/24 22:00 12/12/24 11:19 40 MG Sucralfate 1 gm BID PO 11/25/24 22:00 12/12/24 11:19 1 GM Diagnostic Test (Pha) 1 strip Q6HR 11/25/24 18:00 12/12/24 12:20 1 STRIP Insulin Human Regular FOLLOW SLIDING SCALE Q6HR SC 11/25/24 18:00 12/12/24 03:33 4 UNITS Dextrose 50 ml UD IV 11/25/24 17:15 Atorvastatin Calcium 40 mg HS PO 11/26/24 22:00 12/11/24 20:36 40 MG Metoprolol Tartrate 1.25 mg Q6HPRN PRN IV 11/28/24 18:30 12/12/24 11:10 1.25 MG Epoetin Rolando-epbx 4,000 unit MWF SC 12/01/24 14:00 UNV Enteral Nutritional Formula 1,000 ml 40ML/HR NG 12/02/24 18:00 12/11/24 15:01 1,000 ML Fat Emulsion Intravenous 150 ml/Sodium Chloride 40 meq/ Potassium Chloride 20 meq/ Multivitamins 10 ml/Chromium/ Copper/Manganese/ Zinc 1 ml/Amino Acids/Dextrose/ Purified Water 1,431 ml @ 59 mls/hr [id number] IV 12/03/24 22:00 12/04/24 21:59 Cancel Ipratropium Chloe 0.5 mg Q4HR NEB 12/05/24 01:00 12/12/24 14:50 0.5 MG Furosemide 20 mg DAILY IV 12/06/24 10:00 12/12/24 11:20 20 MG Epoetin Rolando-epbx 6,000 unit MWF@2100 SC 12/08/24 21:00 12/08/24 20:59 6,000 UNIT Amino Acids 0 ml @ 0 mls/hr PER PHARMACY IV 12/07/24 22:00 Amino Acids/ Electrolytes/ Dextrose 1,000 ml @ 41 mls/hr DAILY@2200 IV 12/07/24 22:00 12/11/24 20:35 41 MLS/HR Albumin Human 100 ml @ 100 mls/hr Q1HP PRN IV 12/08/24 10:15 12/08/24 10:29 100 MLS/HR Acetaminophen 1,000 mg Q8H PRN IV 12/08/24 17:15 12/12/24 14:06 1,000 MG Enteral Nutritional Formula 240 ml Q4HR PO 12/11/24 11:30 12/12/24 10:49 240 ML Metoprolol Tartrate 25 mg BID PO 12/12/24 22:00 Norepinephrine Bitartrate 250 ml @ 3.75 mls/hr Q24H IV 12/12/24 13:30 12/12/24 14:19 3.75 MLS/HR Apixaban 2.5 mg BID PO 12/12/24 22:00 Phenylephrine HCl 250 ml @ 30 mls/hr Q8H20M IV 12/12/24 16:00 Laboratory Results Laboratory Tests 12/12/24 05:13 12/12/24 16:06 Chemistry Test 12/12/24 05:13 Albumin 4.4 g/dL (3.2-4.8) Calcium Level 9.9 mg/dL (8.7-10.4) Magnesium Level 2.4 mg/dL (1.6-2.6) Phosphorus Level 1.7 mg/dL (2.4-5.1) L Total Protein 7.5 g/dL (5.7-8.2) LFT Test 12/12/24 05:13 Alanine Aminotransferase (ALT) 56 U/L (7-40) H Alkaline Phosphatase 158 U/L (46-116) H Aspartate Amino Transferase (AST) 176 U/L (13-40) H Total Bilirubin 1.5 mg/dL (0.2-1.0) H Urinalysis Test 11/23/24 05:50 11/25/24 09:23 Urine Amorphous Crystals Few /hpf (None Seen) Urine Color Light-brown (Yellow) Urine Clarity Turbid (Clear) H Urine pH 8.5 (5.0-9.0) Urine Specific [place] 1.011 (1.001-1.035) Urine Protein 3+ (Negative) H Urine Ketones Trace (Negative) Urine Blood 3+ /uL (Negative) H Urine Nitrite Negative (Negative) Urine Bilirubin Negative (Negative) Urine Urobilinogen Normal mg/dL (Negative) Urine Leukocyte Esterase 3+ /uL (Negative) Urine RBC 2271 /hpf (0 - 3) Urine WBC Clumps Present /hpf (None Seen) Urine Microscopic WBC 312 /HPF (0-3) H Urine Squamous Epithelial Cells None seen /hpf (<5) Urine Bacteria None seen /hpf (None Seen) Urine Glucose Trace mg/dL (Normal) Blood Gas Results Test 12/12/24 11:55 Arterial Blood pH 7.585 (7.350-7.450) FiO2 % 40.0 Microbiology Microbiology Date/Time Source Procedure Growth Status 12/07/24 22:00 Nose MRSA Screen - Final Complete 11/25/24 09:23 Urine - Midstream Clean Catch Urine Culture - Final Complete Assessment/Plan Assessment/Plan 78-year-old male with a known history of colon cancer status post partial colectomy status post oral chemotherapy currently in remission, end-stage renal disease on hemodialysis, chronic AFib was on Eliquis, hypertension, COPD initially presented to hospital with a black tarry stools found to have upper GI bleed status post EGD showed gastroduodenitis. Patient's hospital course was eventful for acute right MCA with left-sided hemiplegia. Patient is currently status post PEG tube placement was on tube feeding when he went into respiratory distress requiring ICU level care. 1. Acute hypoxic respiratory failure suspect aspiration pneumonia rule out sepsis 2.. Acute/subacute right MCA with left-sided hemiplegia 2. Acute delirium/acute encephalopathy suspect secondary to subacute CVA 3.Melanotic stools ruled out upper GI bleed, status post EGD showed gastro duodenitis 4. History of colon cancer status post partial colectomy status post chemotherapy, status post colostomy 5. End-stage renal disease on hemodialysis 6.. Hypertension 7. COPD 8 nutrition, peg tube placed -hold tube feeding, stopped Clinimix, pulmonary consultation for acute hypoxic respiratory failure -continue Protonix Carafate, -plan of care discussed with the patient's bedside RN as well as patient's daughter and other family members at bedside. -patient is full code for now. Plan discussed with: Daughter, Other My Orders Orders - BRIE BOLAND MD Procedure Category Date Status Time Metoprolol Tartrate PHA 12/12/24 In Process Tablet (Lopressor Ta 22:00 Blood Culture MARIA VICTORIA 12/12/24 In Process 10:21 Transfer Orders XFER 12/12/24 Transmitted 10:21 * Cardiology Consult CONS 12/12/24 Transmitted 10:21 Transfer Orders XFER 12/12/24 Transmitted 12:33 Phenylephrine Iv PHA 12/12/24 In Process (Phenylephrine/Ns) 16:00 Comprehensive LAB 12/13/24 Verified Metabolic Panel 04:00 Magnesium LAB 12/13/24 Verified 04:00 Phosphorus LAB 12/13/24 Verified 04:00 Clinimix Per Pharmacy [facility] 12/12/24 In Process 22:00 Date of Service: Dec 12, 2024 Billing Provider: BRIE BOLAND MD Common Visit Codes: [id number] INP/OBS CARE(HIGH) BRIE BOLAND MD Dec 12, 2024 17:01
[2024-12-12] MEDS ORDERED: VANCOMYCIN PER PHARMACY 0 MG IV SCH (17:15)
[2024-12-12] MEDS ORDERED: AMIODARONE 360mg/200mL PREMIX 200 ML IV SCH (17:15)
[2024-12-12] MEDS: PIPERACILLIN-TAZOB 2.25GM 50 ML IV SCH (18:23)
--- NOTE | 2024-12-12 18:24 | DVHPN2 ---
Progress Note Date Seen: Dec 12, 2024 Has the PT tested + for MRSA If YES, has PT been informed?: No Medical Necessity Reason Pt with a Central, PICC or Fol: Yes The following are medically ne: Ashraf Catheter Subjective Patient reports: Other (events noted) Review of Systems: Deferred Objective vital signs Vital Sign Date Time Temp Pulse Resp B/P (MAP) Pulse Ox O2 Delivery O2 Flow Rate FiO2 12/12/24 17:30 98.8 106 24 123/20 (54) 99 98.8 12/12/24 15:05 Hi-Flow Heated NC+ 60 80 80 Total Intake and Output 12/11/24 12/11/24 12/12/24 15:00 23:00 07:00 Intake Total 40 ml 0 ml Output Total 50 ml 50 ml Balance -10 ml -50 ml medications Current Medications Medications Dose Ordered Sig/Delfino Route Start Time Stop Time Status Last Admin Dose Admin Amlodipine Besylate 10 mg DAILY PO 11/22/24 10:00 11/25/24 10:19 10 MG Hydralazine HCl 10 mg Q4HP PRN IV 11/23/24 09:15 12/09/24 00:11 10 MG Pantoprazole Sodium 40 mg BID IV 11/23/24 22:00 12/12/24 11:19 40 MG Sucralfate 1 gm BID PO 11/25/24 22:00 12/12/24 11:19 1 GM Diagnostic Test (Pha) 1 strip Q6HR 11/25/24 18:00 12/12/24 17:45 1 STRIP Insulin Human Regular FOLLOW SLIDING SCALE Q6HR SC 11/25/24 18:00 12/12/24 17:45 12 UNITS Dextrose 50 ml UD IV 11/25/24 17:15 Atorvastatin Calcium 40 mg HS PO 11/26/24 22:00 12/11/24 20:36 40 MG Metoprolol Tartrate 1.25 mg Q6HPRN PRN IV 11/28/24 18:30 12/12/24 11:10 1.25 MG Epoetin Rolando-epbx 4,000 unit MWF SC 12/01/24 14:00 UNV Enteral Nutritional Formula 1,000 ml 40ML/HR NG 12/02/24 18:00 12/11/24 15:01 1,000 ML Fat Emulsion Intravenous 150 ml/Sodium Chloride 40 meq/ Potassium Chloride 20 meq/ Multivitamins 10 ml/Chromium/ Copper/Manganese/ Zinc 1 ml/Amino Acids/Dextrose/ Purified Water 1,431 ml @ 59 mls/hr [id number] IV 12/03/24 22:00 12/04/24 21:59 Cancel Ipratropium [place] 0.5 mg Q4HR NEB 12/05/24 01:00 12/12/24 14:50 0.5 MG Furosemide 20 mg DAILY IV 12/06/24 10:00 12/12/24 11:20 20 MG Epoetin Rolando-epbx 6,000 unit MWF@2100 SC 12/08/24 21:00 12/08/24 20:59 6,000 UNIT Amino Acids 0 ml @ 0 mls/hr PER PHARMACY IV 12/07/24 22:00 Amino Acids/ Electrolytes/ Dextrose 1,000 ml @ 41 mls/hr DAILY@2200 IV 12/07/24 22:00 12/11/24 20:35 41 MLS/HR Albumin Human 100 ml @ 100 mls/hr Q1HP PRN IV 12/08/24 10:15 12/08/24 10:29 100 MLS/HR Acetaminophen 1,000 mg Q8H PRN IV 12/08/24 17:15 12/12/24 14:06 1,000 MG Enteral Nutritional Formula 240 ml Q4HR PO 12/11/24 11:30 12/12/24 10:49 240 ML Metoprolol Tartrate 25 mg BID PO 12/12/24 22:00 Norepinephrine Bitartrate 250 ml @ 3.75 mls/hr Q24H IV 12/12/24 13:30 12/12/24 14:19 3.75 MLS/HR Apixaban 2.5 mg BID PO 12/12/24 22:00 Phenylephrine HCl 250 ml @ 30 mls/hr Q8H20M IV 12/12/24 16:00 Vancomycin HCl 0 ml @ 0 mls/hr UD IV 12/12/24 17:15 UNV Piperacillin Sod/ Tazobactam Sod 50 ml @ 12.5 mls/hr Q8H IV 12/12/24 18:00 Examination: GENERAL:Abnormal, LUNGS:Abnormal, MSK:Abnormal, NEURO:Abnormal laboratory and microbiology Laboratory Tests 12/12/24 16:06 12/12/24 05:13 Test 8/15/25 05:13 Range/Units Serum Glucose 148 H 74-106 mg/dL Microbiology Date/Time Source Procedure Growth Status 12/07/24 22:00 Nose MRSA Screen - Final Complete 11/25/24 09:23 Urine - Midstream Clean Catch Urine Culture - Final Complete Problem List/Assessment/Plan Problem List/Assessment/Plan 1. ESRD on HD- 2. HTN 3. hx of COPD 4. Anemia s/p PRBC transfusion CVA fronto parietal Status post PEG tube Acute hypoxic respiratory failure pneumonia, atelectasis recs Hemodialysis today UF 1.8 L We will repeat dialysis tomorrow Upgraded to ICU Renally dose antibiotics to GFR Levophed p.r.n. Plan discussed with: Other Dietary Evaluation Review Comments: 1) Nepro Carbsteady 240ml TID 2) Consider renal standard diet 3) Monitor PO intake, lab values, weight trend, and I/O Expected Outcomes/Goals: To meet >75% estimated needs lab values to improve Fu 3-5 days CC Plasma Assessment Blood Product Administration S: [id number] GERMAN WATERMAN MD Dec 12, 2024 18:24
[2024-12-12] MEDS: VANCOMYCIN 1GM/250ML KIT 250 ML IV ONE (18:45)
--- NOTE | 2024-12-12 19:17 | DVHPN2 ---
Progress Note Date Seen: Dec 12, 2024 Resident Creating Document: ROBLES SWEENEY RESIDENT Has the PT tested + for MRSA If YES, has PT been informed?: No Medical Necessity Reason Pt with a Central, PICC or Fol: Yes The following are medically ne: Ashraf Catheter Subjective Review of Systems Today's progress- The patient remains critically ill. He was upgraded to ICU for acute hypoxic respiratory failure with ABG showing severe hypoxemia with PaO2 of 49 mmHg. Initially placed on a non-rebreather mask, now transitioned to high-flow nasal cannula at 60 L/min, FiO2 of 80%. While on hemodialysis, the patient developed profound hypotension SBP of 73 mmHg, MEP less than 42, requiring Levophed infusion titrated to 20 mcg/minute. Subsequently developed an AFib with rapid ventricular response, currently on amiodarone drip. PEG tube in place, receiving Nepro with carb steady and and also TPN via Clinimix. Colostomy output very minimal to none. Objective vital signs Vital Sign Date Time Temp Pulse Resp B/P (MAP) Pulse Ox O2 Delivery O2 Flow Rate FiO2 12/12/24 17:30 98.8 106 24 123/20 (54) 99 98.8 12/12/24 15:05 Hi-Flow Heated NC+ 60 80 80 Total Intake and Output 12/11/24 12/11/24 12/12/24 15:00 23:00 07:00 Intake Total 40 ml 0 ml Output Total 50 ml 50 ml Balance -10 ml -50 ml medications Current Medications Medications Dose Ordered Sig/Delfino Route Start Time Stop Time Status Last Admin Dose Admin Amlodipine Besylate 10 mg DAILY PO 11/22/24 10:00 11/25/24 10:19 10 MG Hydralazine HCl 10 mg Q4HP PRN IV 11/23/24 09:15 12/09/24 00:11 10 MG Pantoprazole Sodium 40 mg BID IV 11/23/24 22:00 12/12/24 11:19 40 MG Sucralfate 1 gm BID PO 11/25/24 22:00 12/12/24 11:19 1 GM Diagnostic Test (Pha) 1 strip Q6HR 11/25/24 18:00 12/12/24 17:45 1 STRIP Insulin Human Regular FOLLOW SLIDING SCALE Q6HR SC 11/25/24 18:00 12/12/24 17:45 12 UNITS Dextrose 50 ml UD IV 11/25/24 17:15 Atorvastatin Calcium 40 mg HS PO 11/26/24 22:00 12/11/24 20:36 40 MG Metoprolol Tartrate 1.25 mg Q6HPRN PRN IV 11/28/24 18:30 12/12/24 11:10 1.25 MG Epoetin Rolando-epbx 4,000 unit MWF SD 12/01/24 14:00 UNV Enteral Nutritional Formula 1,000 ml 40ML/HR NG 12/02/24 18:00 12/11/24 15:01 1,000 ML Fat Emulsion Intravenous 150 ml/Sodium Chloride 40 meq/ Potassium Chloride 20 meq/ Multivitamins 10 ml/Chromium/ Copper/Manganese/ Zinc 1 ml/Amino Acids/Dextrose/ Purified Water 1,431 ml @ 59 mls/hr [id number] IV 12/03/24 22:00 12/04/24 21:59 Cancel Ipratropium [place] 0.5 mg Q4HR NEB 12/05/24 01:00 12/12/24 18:45 0.5 MG Furosemide 20 mg DAILY IV 12/06/24 10:00 12/12/24 11:20 20 MG Epoetin Rolando-epbx 6,000 unit MWF@2100 SD 12/08/24 21:00 12/08/24 20:59 6,000 UNIT Amino Acids 0 ml @ 0 mls/hr PER PHARMACY IV 12/07/24 22:00 Amino Acids/ Electrolytes/ Dextrose 1,000 ml @ 41 mls/hr DAILY@2200 IV 12/07/24 22:00 12/11/24 20:35 41 MLS/HR Albumin Human 100 ml @ 100 mls/hr Q1HP PRN IV 12/08/24 10:15 12/08/24 10:29 100 MLS/HR Acetaminophen 1,000 mg Q8H PRN IV 12/08/24 17:15 12/12/24 14:06 1,000 MG Enteral Nutritional Formula 240 ml Q4HR PO 12/11/24 11:30 12/12/24 10:49 240 ML Metoprolol Tartrate 25 mg BID PO 12/12/24 22:00 Norepinephrine Bitartrate 250 ml @ 3.75 mls/hr Q24H IV 12/12/24 13:30 12/12/24 14:19 3.75 MLS/HR Apixaban 2.5 mg BID PO 12/12/24 22:00 Phenylephrine HCl 250 ml @ 30 mls/hr Q8H20M IV 12/12/24 16:00 Vancomycin HCl 0 ml @ 0 mls/hr UD IV 12/12/24 17:15 Piperacillin Sod/ Tazobactam Sod 50 ml @ 12.5 mls/hr Q8H IV 12/12/24 18:00 12/12/24 18:23 12.5 MLS/HR Examination General: Alert, oriented more awake * Abdomen: Soft, mildly tender LUQ, non-distended, bowel sounds present. Colostomy bag intact, minimal output, midline scar Epigastric to L quadrant gastrostomy tube site appears to be clean; dressing is dry laboratory and microbiology Laboratory Tests 12/12/24 16:06 12/12/24 05:13 Test 12/12/24 05:13 Range/Units Serum Glucose 148 H 74-106 mg/dL Microbiology Date/Time Source Procedure Growth Status 12/07/24 22:00 Nose MRSA Screen - Final Complete 11/25/24 09:23 Urine - Midstream Clean Catch Urine Culture - Final Complete Problem List/Assessment/Plan Problem List/Assessment/Plan Assessment 1. Upper GI bleed with melena resolved; no current bleeding. 2. Gastroduodenitis continue PPI and Carafate. 3. Severe anemia (multifactorial, prior GI loss and CKD) stable post- transfusion. 4. Parastomal hernia stable, no obstruction. 6. ESRD on HD continue scheduled dialysis. 7. Acute right MCA stroke with dysphagia managed by neurology. 8. Atrial fibrillation (now sinus rhythm on amiodarone) 9. Severe Protein-Calorie Malnutrition * Due to inability to tolerate oral/enteral nutrition, failed NG placement, failed swallow evaluation * Currently on parenteral nutrition via Clinimix * PEG placement done 10. Dysphagia and Feeding Intolerance * Due to post-stroke aphasia and poor gag/swallow reflex * Failed repeat swallow evaluation * Requires PEG for long-term feeding 11.4. Elevated Liver Enzymes * Downtrending * Likely secondary to TPN, hepatic congestion, or ESRD * Continue to monitor LFTs Plan Gastrointestinal / Nutrition PEG TUBE Continue PEG tube feeds with Nepro with carb steady. Titrate rate as tolerated. Monitor residuals and colostomy output. GI care for ongoing colostomy and PEG management. Continue dry dressing with hydrogen peroxide and maintain a clean area around the PEG tube insertion site * Continue TPN * Maintain NPO status * Monitor abdominal exam, colostomy output * Monitor LFTs and electrolytes daily Hematology * Monitor CBC daily * No current signs of bleeding RESUME ASPIRIN AGAIN TODAY * Maintain transfusion threshold Hgb <7 unless symptomatic Neurologic * Aphasia and non-verbal state post-stroke * High aspiration risk. PEG feeding * Continue supportive care, neuro re-eval not indicated unless mental status changes Disposition * SNF vs hospice under discussion * Family and PCP engaged in shared decision-making WE WILL CLOSELY MONITOR THIS PATIENT Case discussed in detail with the attending physician, including the clinical presentation, diagnostic workup, and comprehensive management plan. Plan discussed with: Other (RN) Dietary Evaluation Review Comments: 1) Nepro Carbsteady 240ml TID 2) Consider renal standard diet 3) Monitor PO intake, lab values, weight trend, and I/O Expected Outcomes/Goals: To meet >75% estimated needs lab values to improve Fu 3-5 days CC Plasma Assessment Blood Product Administration S: [id number] ROBLES SWEENEY RESIDENT Dec 12, 2024 19:17
--- NOTE | 2024-12-12 21:23 | DVHPN2 ---
Progress Note - Dictate Date Seen: Dec 12, 2024 Has the PT tested + for MRSA If YES, has PT been informed?: No Medical Necessity Reason Pt with a Central, PICC or Fol: Yes The following are medically ne: Ashraf Catheter Subjective Mr. Akbar is a 78 years old gentleman with a history of hypertension, dyslipidemia, COPD, end-stage kidney failure on hemodialysis, colon cancer status post colostomy, he was brought to the [facility], [place] on 11/21/2024 with a chief company of general weakness and dark stool. He was transferred to ICU on 12/12/2024 with respiratory failure, hypoxia I have seen and examined the patient. I have talked to his nurse, he is awake, he talks a little bit, he may oriented to person Stool occult blood, 11/21/2024: Positive Urinalysis, 11/23/2024: UTI UDS, 11/23/2024: Negative ABG, PO2: 49.8 WBC/HB/PLT/MCV, 11/21/2024: 12.3/5.8/267/94.5, 11/25/2024: 11.8/9.9/275/93.6, 12/12/2024: 24.6/7.9/191/89.8 PT/INR/PTT, 11/21/2024: 13/1.25/41.6 BUN/CR, 11/26/2024: 53/6.41, 12/12/2024: 105/6.27 lactic acid, 12/12/24: 5.1, 2.8 HGB A1c, 11/21/2024: <3.8 TBI/AST/ALT/AP, 12/02/2024: 0.5/40/13/153, 12/06/2024, 0.8/66/45/172, 12/11/2024: 2.2/36/22/133, 12/12/2024: 1.5/178/56/158 TG/HDL/LDL/HDL, 11/27/2024: 203/156/93/21 Vitamin B12, 11/21/2024: 452 TSH, 11/21/2024: 2.27 EKG, 10/3124: AFib Carotid Doppler, 11/26/2024: 1. No hemodynamically significant stenosis noted in the right carotid system. Approximately 50-69 % focal stenosis in the mid right internal carotid artery. 2. No hemodynamically significant stenosis noted in the left carotid system. 3. The vertebral arteries were not visualized. Echocardiogram, 11/27/2024: Sinus rhythm. Concentric LVH with left atrial enlargement and aortic root enlargement. Dilation of the sinuses of Valsalva. Moderate mitral annular calcification of the base of the posterior mitral leaflet. The aortic and tricuspid appear to be structurally normal. Left ventricular systolic performance appears to be preserved. EF is about 55%. There is impaired diastolic relaxation. Normal RV function. There is mild aortic insufficiency. Mild tricuspid regurgitation. No pericardial effusion masses or vegetations Chest x-ray, 12/12/24: Mild cardiomegaly and mild pulmonary vascular congestion. Small to moderate left pleural effusion and left basilar consolidation likely atelectasis though pneumonia could contribute to this appearance. CT head, 11/09/2024: Acute to subacute infarction of the right frontoparietal lobe with thrombus in the right middle cerebral artery M2 segment. Recommend neurology consultation. Moderate chronic microvascular ischemic changes. MRI head, 11/26/2024: Acute infarction right middle cerebral artery distribution involving the right frontal and parietal lobes. Findings consistent with right M2 middle cerebral artery segment occlusion/thrombosis. Moderate chronic microvascular ischemic changes. EGD, 11/25/2024: 1. Minimal gastroduodenitis 2. Otherwise normal examination up to the 2nd and 3rd part of the duodenal with no fresh or old blood in the upper GI tract vital signs Vital Sign Date Time Temp Pulse Resp B/P (MAP) Pulse Ox O2 Delivery O2 Flow Rate FiO2 12/12/24 20:09 127/28 12/12/24 18:45 115 31 99 50.0 80 12/12/24 17:30 98.8 98.8 12/12/24 15:05 Hi-Flow Heated NC+ Total Intake and Output 12/11/24 12/11/24 12/12/24 15:00 23:00 07:00 Intake Total 40 ml 0 ml Output Total 50 ml 50 ml Balance -10 ml -50 ml medications Current Medications Medications Dose Ordered Sig/Delfino Route Start Time Stop Time Status Last Admin Dose Admin Amlodipine Besylate 10 mg DAILY PO 11/22/24 10:00 11/25/24 10:19 10 MG Hydralazine HCl 10 mg Q4HP PRN IV 7/27/25 09:15 12/09/24 00:11 10 MG Pantoprazole Sodium 40 mg BID IV 11/23/24 22:00 12/12/24 11:19 40 MG Sucralfate 1 gm BID PO 11/25/24 22:00 12/12/24 11:19 1 GM Diagnostic Test (Pha) 1 strip Q6HR 11/25/24 18:00 12/12/24 17:45 1 STRIP Insulin Human Regular FOLLOW SLIDING SCALE Q6HR SC 11/25/24 18:00 12/12/24 17:45 12 UNITS Dextrose 50 ml UD IV 11/25/24 17:15 Atorvastatin Calcium 40 mg HS PO 11/26/24 22:00 12/11/24 20:36 40 MG Metoprolol Tartrate 1.25 mg Q6HPRN PRN IV 11/28/24 18:30 12/12/24 11:10 1.25 MG Epoetin Rolando-epbx 4,000 unit MWF [place] 12/01/24 14:00 UNV Enteral Nutritional Formula 1,000 ml 40ML/HR NG 12/02/24 18:00 12/11/24 15:01 1,000 ML Fat Emulsion Intravenous 150 ml/Sodium Chloride 40 meq/ Potassium Chloride 20 meq/ Multivitamins 10 ml/Chromium/ Copper/Manganese/ Zinc 1 ml/Amino Acids/Dextrose/ Purified Water 1,431 ml @ 59 mls/hr [id number] IV 12/03/24 22:00 12/04/24 21:59 Cancel Ipratropium [place] 0.5 mg Q4HR NEB 12/05/24 01:00 12/12/24 18:45 0.5 MG Furosemide 20 mg DAILY IV 12/06/24 10:00 12/12/24 11:20 20 MG Epoetin Rolando-epbx 6,000 unit MWF@2100 [place] 12/08/24 21:00 12/08/24 20:59 6,000 UNIT Amino Acids 0 ml @ 0 mls/hr PER PHARMACY IV 12/07/24 22:00 Amino Acids/ Electrolytes/ Dextrose 1,000 ml @ 41 mls/hr DAILY@2200 IV 12/07/24 22:00 12/11/24 20:35 41 MLS/HR Albumin Human 100 ml @ 100 mls/hr Q1HP PRN IV 12/08/24 10:15 12/08/24 10:29 100 MLS/HR Acetaminophen 1,000 mg Q8H PRN IV 12/08/24 17:15 12/12/24 14:06 1,000 MG Enteral Nutritional Formula 240 ml Q4HR PO 12/11/24 11:30 12/12/24 10:49 240 ML Metoprolol Tartrate 25 mg BID PO 12/12/24 22:00 Norepinephrine Bitartrate 250 ml @ 3.75 mls/hr Q24H IV 12/12/24 13:30 12/12/24 20:09 45 MLS/HR Apixaban 2.5 mg BID PO 12/12/24 22:00 Phenylephrine HCl 250 ml @ 30 mls/hr Q8H20M IV 12/12/24 16:00 Vancomycin HCl 0 ml @ 0 mls/hr UD IV 12/12/24 17:15 Piperacillin Sod/ Tazobactam Sod 50 ml @ 12.5 mls/hr Q8H IV 12/12/24 18:00 12/12/24 18:23 12.5 MLS/HR objective General: the patient is well developed and nourished. No acute distress. MENTAL STATUS: Subjective SPEECH, LANGUAGE, HIGHER CORTICAL FUNCTION: Subjective CRANIAL NERVES: He might have left homonymous hemianopsia. Pupils are equal, round and reactive. EOMs full and conjugate. Facial sensation intact in all three divisions bilaterally. Mandibular strength intact. Facial muscles symmetrical and strength intact. SENSATION: Sensation to touch and pinprick is unremarkable MOTOR: Normal tone in the upper and lower extremity. Normal muscle bulk. No fasciculations. No abnormal movements or posturing. He moves the right arm, he moves the legs minimally REFLEXES: Deep tendon reflexes are symmetrical. 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 Lipitor 40 mg daily Carafate 1 g b.i.d. Protonix 40 mg b.i.d. Nephrology on case/hemodialysis GI specialist on case More recommendation per clinical course This medical document was created using an electronic medical record system with [employer] dictation system. Although this document has been carefully reviewed, there may still be some phonetic and typographical errors. These areas are purely typographical due to imperfections of the software programs, and do not reflect any compromise in the patient's medical care. Prognosis Critical Dietary Evaluation Review Comments: 1) Nepro Carbsteady 240ml TID 2) Consider renal standard diet 3) Monitor PO intake, lab values, weight trend, and I/O Expected Outcomes/Goals: To meet >75% estimated needs lab values to improve Fu 3-5 days Plan discussed with: Other Critical Care Time(min): 30 CC Plasma Assessment Blood Product Administration S: [id number] PATSY SALGADO MD Dec 12, 2024 21:23
[2024-12-12] MEDS: METOPROLOL TARTRATE 25 MG TAB PO SCH (22:00)
--- NOTE | 2024-12-12 22:03 | DVHPN2 ---
Consult Progress Note Subjective Other Systems: Patient was seen and evaluated in follow-up in the ICU. Cardiology reconsulted to see patient who went into atrial fibrillation with rapid ventricular response on the radiation control worker. At the time of assessment, the patient has been increased work of breathing. A twelve lead electrocardiogram reveals atrial fibrillation with rapid ventricular response. The patient was upgraded to the intensive care unit. Patient is on 60 l High flow heated NC. WBC 14.9, HGB 8, HCT 24.8, BUN 105, PICC NURSE 6.27, AST 176, ALT 56. Chest x-ray shows mild cardiomegaly and mild pulmonary vascular congestion, small to moderate left pleural effusion and left basilar consolidation likely atelectasis though pneumonia could contribute to this appearance. Objective vital signs Vital Sign Date Time Temp Pulse Resp B/P (MAP) Pulse Ox O2 Delivery O2 Flow Rate FiO2 12/12/24 15:05 94 Hi-Flow Heated NC+ 60 80 80 12/12/24 15:01 109 27 12/12/24 14:19 91/30 12/12/24 13:15 101.3 101.3 Total Intake and Output 12/11/24 12/11/24 12/12/24 15:00 23:00 07:00 Intake Total 40 ml 0 ml Output Total 50 ml 50 ml Balance -10 ml -50 ml medications Current Medications Medications Dose Ordered Sig/Delfino Route Start Time Stop Time Status Last Admin Dose Admin Amlodipine Besylate 10 mg DAILY PO 11/22/24 10:00 11/25/24 10:19 10 MG Hydralazine HCl 10 mg Q4HP PRN IV 11/23/24 09:15 12/09/24 00:11 10 MG Pantoprazole Sodium 40 mg BID IV 11/23/24 22:00 12/12/24 11:19 40 MG Sucralfate 1 gm BID PO 11/25/24 22:00 12/12/24 11:19 1 GM Diagnostic Test (Pha) 1 strip Q6HR 11/25/24 18:00 12/12/24 12:20 1 STRIP Insulin Human Regular FOLLOW SLIDING SCALE Q6HR SC 11/25/24 18:00 12/12/24 03:33 4 UNITS Dextrose 50 ml UD IV 11/25/24 17:15 Atorvastatin Calcium 40 mg HS PO 11/26/24 22:00 12/11/24 20:36 40 MG Metoprolol Tartrate 1.25 mg Q6HPRN PRN IV 11/28/24 18:30 12/12/24 11:10 1.25 MG Epoetin Rolando-epbx 4,000 unit MWF [place] 12/01/24 14:00 UNV Enteral Nutritional Formula 1,000 ml 40ML/HR NG 12/02/24 18:00 12/11/24 15:01 1,000 ML Fat Emulsion Intravenous 150 ml/Sodium Chloride 40 meq/ Potassium Chloride 20 meq/ Multivitamins 10 ml/Chromium/ Copper/Manganese/ Zinc 1 ml/Amino Acids/Dextrose/ Purified Water 1,431 ml @ 59 mls/hr [id number] IV 12/03/24 22:00 12/04/24 21:59 Cancel Ipratropium [place] 0.5 mg Q4HR NEB 12/05/24 01:00 12/12/24 14:50 0.5 MG Furosemide 20 mg DAILY IV 12/06/24 10:00 12/12/24 11:20 20 MG Epoetin Rolando-epbx 6,000 unit MWF@2100 [place] 12/08/24 21:00 12/08/24 20:59 6,000 UNIT Amino Acids 0 ml @ 0 mls/hr PER PHARMACY IV 12/07/24 22:00 Amino Acids/ Electrolytes/ Dextrose 1,000 ml @ 41 mls/hr DAILY@2200 IV 12/07/24 22:00 12/11/24 20:35 41 MLS/HR Albumin Human 100 ml @ 100 mls/hr Q1HP PRN IV 12/08/24 10:15 12/08/24 10:29 100 MLS/HR Acetaminophen 1,000 mg Q8H PRN IV 12/08/24 17:15 12/12/24 14:06 1,000 MG Enteral Nutritional Formula 240 ml Q4HR PO 12/11/24 11:30 12/12/24 10:49 240 ML Metoprolol Tartrate 25 mg BID PO 12/12/24 22:00 Norepinephrine Bitartrate 250 ml @ 3.75 mls/hr Q24H IV 12/12/24 13:30 12/12/24 14:19 3.75 MLS/HR Apixaban 2.5 mg BID PO 12/12/24 22:00 UNV Examination: GENERAL:Normal, HEENT:Normal, NECK:Normal, LUNGS:Abnormal (Coarse throughout), CVS:Abnormal (Atrial fibrillation with rapid ventricular response), ABDOMEN:Normal, MSK:Normal, SKIN:Normal, NEURO:Abnormal (Confused ) laboratory and microbiology Laboratory Tests 12/12/24 05:13 Test 12/12/24 05:13 Range/Units Serum Glucose 148 H 74-106 mg/dL Problem List/Assessment/Plan Problem List/Assessment/Plan Problem List Atrial fibrillation with a rapid ventricular response. Severe anemia status post PRBC transfusions. Acute right MCA territory CVA. NSTEMI, likely type 2 secondary to above. Acute hypoxic respiratory failure, ?Aspiration pneumonia. ?Sepsis . Mild tricuspid regurgitation. End-stage renal disease on hemodialysis. History of colon cancer status post colectomy and colostomy. COPD. Plan/Recommendations Continued all current supportive medical care. Patient has been seen by Chelsie Chance NP on my behalf, her and I discussed the plan with the patient. Transthoracic echocardiogram reveals EF 55%. [id number] VASc score: 5 points, HAS-BLED score: 4 points. GI has cleared the patient to initiate Eliquis 2.5 mg b.i.d. through PEG tube. Antiarrhythmic agent, amiodarone bolus followed by IV drip per protocol. Beta-freedom for rate control. Monitor and replete electrolytes as needed, keep potassium greater than four and magnesium greater than two. Closely monitor hemoglobin and hematocrit, transfuse as needed. Close Cardiac surveillance. The patient was initially seen by the cardiology team on 11/27/2024 when he was noted to go into atrial fibrillation with a rapid ventricular response. At that time, medical management was done and the patient converted into a normal sinus rhythm. Cardiology had since signed off. Today, the patient was noted to go back into an atrial fibrillation with rapid ventricular response rhythm. A twelve lead electrocardiogram was obtained and confirmed rhythm. At the time of assessment, the patient was noted to have coarse breath sounds and increased work of breathing and SpO2 82% on room air. The patient was placed on a high-flow nasal cannula and transferred down to the intensive care unit. Amiodarone IV bolus was ordered followed by the amiodarone IV drip protocol. Patient also noted to have an elevated temperature and elevated WBCs today. Primary team suspecting possible aspiration pneumonia. Recommend to treat the underlying cause to improve heart rate. Continue with close cardiac surveillance. Additional plan as per the hospital course. Plan discussed with: Other Dietary Evaluation Review Comments: 1) Nepro Carbsteady 240ml TID 2) Consider renal standard diet 3) Monitor PO intake, lab values, weight trend, and I/O Expected Outcomes/Goals: To meet >75% estimated needs lab values to improve Fu 3-5 days CC Plasma Assessment Blood Product Administration S: [id number] Date of Service: Dec 12, 2024 Billing Provider: NIKKO PANTOJA MD Cardiology Common Codes: 61282-BQFPDUHG CARE 30-74 MIN NIKKO PANTOJA MD Dec 12, 2024 15:42
[2024-12-12] MEDS: APIXABAN 2.5 MG TAB PO SCH (22:54)
[2024-12-13] VITALS (106 sets, daily range): BP systolic 87–158; BP diastolic 13–41; PULSE 65–147; RESP 17–38; TEMP 97.2–102; O2SAT 91–100
[2024-12-13] MEDS: AMIODARONE 360mg/200mL PREMIX 200 ML IV SCH ×2 (01:30→18:33)
[2024-12-13 02:54] LABS: Hematocrit 23.4 % (41.0-53.0); Hemoglobin 7.8 g/dL (13.5-17.5); Mean Corpuscular Hemoglobin 29.4 pg (28.0-32.0); Mean Corpuscular Volume 88.2 fL (80.0-100.0)
[2024-12-13 03:16] LABS: Albumin 3.7 g/dL (3.2-4.8); Anion Gap 14 (5-15); BUN/Creatinine Ratio 19.6 (10.0-20.0); Carbon Dioxide 25 mmol/L (20-31); Magnesium 1.9 mg/dL (1.6-2.6); Total Protein 6.5 g/dL (5.7-8.2)
[2024-12-13 03:18] LABS: Alanine Aminotransferase 42 U/L (7-40); Alkaline Phosphatase 146 U/L (46-116); Bilirubin, Total 1.5 mg/dL (0.2-1.0); Blood Urea Nitrogen 79 mg/dL (9-23); Calcium 8.4 mg/dL (8.7-10.4); Chloride 93 mmol/L (98-107); Glucose 155 mg/dL (74-106); Potassium 3.4 mmol/L (3.5-5.1); Sodium 132 mmol/L (136-145)
[2024-12-13 03:29] LABS: Total Cells Counted 100.0 (100)
[2024-12-13] MEDS: SODIUM CHL 0.9% 1000 ML BAG XX ONE (07:45)
--- NOTE | 2024-12-13 09:38 | DVHPN2 ---
Subjective Sinus tachycardia low 100s Remained on amiodarone drip at 0.5mg Reviewed: Care Plan Changes from previous H/P or p: No Changes Objective Vitals Vital Signs Date Time Temp Pulse Resp B/P (MAP) Pulse Ox O2 Delivery O2 Flow Rate FiO2 12/13/24 06:50 132 28 98 40.0 60 12/13/24 06:30 112/15 (47) 12/13/24 03:45 98.2 98.2 12/12/24 20:00 Hi-Flow Heated NC+ Intake/Output Intake and Output 12/13/24 07:00 Intake Total 2376.17 ml Output Total 225 ml Balance 2151.17 ml Intake Oral 60 ml IV Total 1916.17 ml Tube Feeding 300 ml Other 100 ml Output Urine Total 225 ml Medications Current Medications Medications Dose Ordered Sig/Delfino Route Start Time Stop Time Status Last Admin Dose Admin Amlodipine Besylate 10 mg DAILY PO 11/22/24 10:00 11/25/24 10:19 10 MG Hydralazine HCl 10 mg Q4HP PRN IV 11/23/24 09:15 12/09/24 00:11 10 MG Pantoprazole Sodium 40 mg BID IV 11/23/24 22:00 12/12/24 22:53 40 MG Sucralfate 1 gm BID PO 11/25/24 22:00 12/12/24 22:54 1 GM Diagnostic Test (Pha) 1 strip Q6HR 11/25/24 18:00 12/13/24 05:28 1 STRIP Insulin Human Regular FOLLOW SLIDING SCALE Q6HR SC 11/25/24 18:00 12/13/24 05:29 4 UNITS Dextrose 50 ml UD IV 11/25/24 17:15 Atorvastatin Calcium 40 mg HS PO 11/26/24 22:00 12/12/24 22:54 40 MG Metoprolol Tartrate 1.25 mg Q6HPRN PRN IV 11/28/24 18:30 12/12/24 11:10 1.25 MG Epoetin Rolando-epbx 4,000 unit MWF [place] 12/01/24 14:00 UNV Enteral Nutritional Formula 1,000 ml 40ML/HR NG 12/02/24 18:00 12/13/24 06:15 1,000 ML Fat Emulsion Intravenous 150 ml/Sodium Chloride 40 meq/ Potassium Chloride 20 meq/ Multivitamins 10 ml/Chromium/ Copper/Manganese/ Zinc 1 ml/Amino Acids/Dextrose/ Purified Water 1,431 ml @ 59 mls/hr [id number] IV 12/03/24 22:00 12/04/24 21:59 Cancel Ipratropium [place] 0.5 mg Q4HR NEB 12/05/24 01:00 12/13/24 06:50 0.5 MG Epoetin Rolando-epbx 6,000 unit MWF@2100 [place] 12/08/24 21:00 12/12/24 21:25 6,000 UNIT Amino Acids 0 ml @ 0 mls/hr PER PHARMACY IV 12/07/24 22:00 Amino Acids/ Electrolytes/ Dextrose 1,000 ml @ 41 mls/hr DAILY@2200 IV 12/07/24 22:00 12/11/24 20:35 41 MLS/HR Albumin Human 100 ml @ 100 mls/hr Q1HP PRN IV 12/08/24 10:15 12/08/24 10:29 100 MLS/HR Acetaminophen 1,000 mg Q8H PRN IV 12/08/24 17:15 12/12/24 22:58 1,000 MG Enteral Nutritional Formula 240 ml Q4HR PO 12/11/24 11:30 12/12/24 10:49 240 ML Metoprolol Tartrate 25 mg BID PO 12/12/24 22:00 Hold Norepinephrine Bitartrate 250 ml @ 3.75 mls/hr Q24H IV 12/12/24 13:30 12/13/24 06:22 45 MLS/HR Apixaban 2.5 mg BID PO 12/12/24 22:00 12/12/24 22:54 2.5 MG Phenylephrine HCl 250 ml @ 30 mls/hr Q8H20M IV 12/12/24 16:00 Vancomycin HCl 0 ml @ 0 mls/hr UD IV 12/12/24 17:15 Piperacillin Sod/ Tazobactam Sod 50 ml @ 12.5 mls/hr Q8H IV 12/12/24 18:00 12/13/24 02:23 12.5 MLS/HR Bumetanide 1 mg BID IV 12/13/24 10:00 UNV Laboratory Results Laboratory Tests 12/13/24 02:15 Chemistry Test 12/12/24 18:43 12/13/24 02:15 Magnesium Level 1.9 mg/dL (1.6-2.6) 1.9 mg/dL (1.6-2.6) Albumin 3.7 g/dL (3.2-4.8) Calcium Level 8.4 mg/dL (8.7-10.4) L Phosphorus Level 2.2 mg/dL (2.4-5.1) L Total Protein 6.5 g/dL (5.7-8.2) LFT Test 12/13/24 02:15 Alanine Aminotransferase (ALT) 42 U/L (7-40) H Alkaline Phosphatase 146 U/L (46-116) H Aspartate Amino Transferase (AST) 99 U/L (13-40) H Total Bilirubin 1.5 mg/dL (0.2-1.0) H Urinalysis Test 11/23/24 05:50 11/25/24 09:23 Urine Amorphous Crystals Few /hpf (None Seen) Urine Color Light-brown (Yellow) Urine Clarity Turbid (Clear) H Urine pH 8.5 (5.0-9.0) Urine Specific [place] 1.011 (1.001-1.035) Urine Protein 3+ (Negative) H Urine Ketones Trace (Negative) Urine Blood 3+ /uL (Negative) H Urine Nitrite Negative (Negative) Urine Bilirubin Negative (Negative) Urine Urobilinogen Normal mg/dL (Negative) Urine Leukocyte Esterase 3+ /uL (Negative) Urine RBC 2271 /hpf (0 - 3) Urine WBC Clumps Present /hpf (None Seen) Urine Microscopic WBC 312 /HPF (0-3) H Urine Squamous Epithelial Cells None seen /hpf (<5) Urine Bacteria None seen /hpf (None Seen) Urine Glucose Trace mg/dL (Normal) Blood Gas Results Test 12/12/24 11:55 Arterial Blood pH 7.585 (7.350-7.450) FiO2 % 40.0 Microbiology Microbiology Date/Time Source Procedure Growth Status 12/07/24 22:00 Nose MRSA Screen - Final Complete 11/25/24 09:23 Urine - Midstream Clean Catch Urine Culture - Final Complete Assessment/Plan Assessment/Plan Atrial fibrillation with a rapid ventricular response Severe anemia status post PRBC transfusions Acute right MCA territory CVA NSTEMI, likely type 2 secondary to above Acute hypoxic respiratory failure, ?Aspiration pneumonia ?Sepsis Mild tricuspid regurgitation End-stage renal disease on hemodialysis History of colon cancer status post colectomy and colostomy COPD Plan/Recommendations (Dr. Pantoja): * Repleted electrolytes * Transthoracic echocardiogram reveals EF 55% * [id number] VASc score: 5 points, HAS-BLED score: 4 points * GI has cleared the patient to initiate Eliquis 2.5 mg b.i.d. through PEG tube * Antiarrhythmic agent, amiodarone bolus followed by IV drip per protocol * Beta-freedom for rate control * Monitor and replete electrolytes as needed, keep potassium greater than four and magnesium greater than two * Closely monitor hemoglobin and hematocrit, transfuse as needed * Close Cardiac surveillance The patient was initially seen by the cardiology team on 11/27/2024 when he was noted to go into atrial fibrillation with a rapid ventricular response. At that time, medical management was done and the patient converted into a normal sinus rhythm. Cardiology had since signed off. Today, the patient was noted to go back into an atrial fibrillation with rapid ventricular response rhythm. A twelve lead electrocardiogram was obtained and confirmed rhythm. At the time of assessment, the patient was noted to have coarse breath sounds and increased work of breathing and SpO2 82% on room air. The patient was placed on a high- flow nasal cannula and transferred down to the intensive care unit. Amiodarone IV bolus was ordered followed by the amiodarone IV drip protocol. Patient also noted to have an elevated temperature and elevated WBCs today. Primary team suspecting possible aspiration pneumonia. Recommend to treat the underlying cause to improve heart rate. Continue with close cardiac surveillance. This medical document was created using an electronic medical record system with voice recognition software and computerized dictation system. Although this document has been carefully reviewed, there might still be some phonetic and typographical errors. Occasional wrong-word or ``sound-alike substitutions may have occurred due to the inherent limitations of voice recognition software. These areas are purely typographical due to imperfections of the software programs and do not reflect any compromise in the patient's medical care. Please read the chart carefully and recognize, using context, where these substitutions have occurred. Plan discussed with: Other (Bedside RN) Plan discussed with: Patient, Other (RN) My Orders Orders - MILADIS DALTON [facility] Procedure Category Date Status Time Magnesium Morris PHA 12/13/24 Transmitted 10:00 Potassium Chl Morris PHA 12/13/24 Transmitted KCL 09:45 Date of Service: Dec 13, 2024 Billing Provider: NIKKO PANTOJA MD Common Visit Codes: CONSULT ONLY Consultation Codes: [id number] CONSULT <45MIN MILADIS DALTON [facility] [employer] Dec 13, 2024 09:38
[2024-12-13] MEDS: VANCOMYCIN 500mg/100mL 100 ML IV ONE (10:00)
[2024-12-13 10:19] LABS: Base Excess 0.4 mmol/L (-2.0-3.0)
[2024-12-13] MEDS: ROCURONIUM 10MG/ML 10ML VIAL IV ONE ×2 (10:42→13:38)
[2024-12-13] MEDS: ETOMIDATE (2MG/ML) 20ML VIAL IV ONE ×2 (10:42→13:36)
[2024-12-13] MEDS: MIDAZOLAM DRIP 50 mg/50mL 50 ML IV ONE (10:43)
[2024-12-13] MEDS: fentaNYL Drip 2500mCg/250mlNS 250 ML IV ONE (10:43)
[2024-12-13] MEDS: MAGNESIUM SULFATE 1GM/100ML 100 ML IV SCH (11:00)
[2024-12-13] MEDS: MIDAZOLAM DRIP 50 mg/50mL 50 ML IV SCH (11:00)
[2024-12-13] MEDS: fentaNYL Drip 2500mCg/250mlNS 250 ML IV SCH (11:00)
[2024-12-13] MEDS: POTASSIUM CHL 20MEQ/100ML 100 ML IV ONE (11:37)
[2024-12-13] MEDS: BUMETANIDE 2.5mg/10ml (0.25 mg/ml) INJ IV SCH (11:43)
--- NOTE | 2024-12-13 11:55 | DVH ---
XY CHEST PORTABLE, HISTORY: INTUBATION/ BRONCHOSCOPY COMPARISON: XY CHEST PORTABLE on DOS: 12/12/24, XY CHEST PORTABLE on DOS: 12/07/24, XY CHEST XRAY 1 VIE W on DOS: 12/05/24 XY CHEST PORTABLE on DOS: 12/12/24, XY CHEST PORTABLE on DOS: 12/07/24, XY CHEST XRAY 1 VIEW on DOS: 12/05/24 TECHNICAL DATA: 1 view of the chest was obtained. FINDINGS: Lines and tubes: ET in the mid thoracic trachea. Cardiomediastinal silhouette: Prominent Pulmonary vasculature: Prominent Lung expansion: Left basilar consolidation. Lung airspace: normal Lung interstitium: normal Pleura: Trace left effusion. Pneumothorax: no Bones: Unremarkable Other: no IMPRESSION: ET in the mid thoracic trachea. Left basilar consolidation similar to prior..
--- NOTE | 2024-12-13 12:09 | DVHPN2 ---
Progress Note Date Seen: Dec 13, 2024 Has the PT tested + for MRSA If YES, has PT been informed?: No Medical Necessity Reason Pt with a Central, PICC or Fol: Yes The following are medically ne: Ashraf Catheter Subjective Patient reports: Other (Events noted intubated this morning) Review of Systems: Deferred Objective vital signs Vital Sign Date Time Temp Pulse Resp B/P (MAP) Pulse Ox O2 Delivery O2 Flow Rate FiO2 12/13/24 11:43 127/27 12/13/24 10:31 95 26 100 12/13/24 10:21 40.0 12/13/24 10:21 60 12/13/24 10:21 Hi-Flow Heated NC+ 12/13/24 03:45 98.2 98.2 Total Intake and Output 12/12/24 12/12/24 12/13/24 15:00 23:00 07:00 Intake Total 904.24 ml 946.97 ml 524.96 ml Output Total 0 ml 200 ml 25 ml Balance 904.24 ml 746.97 ml 499.96 ml medications Current Medications Medications Dose Ordered Sig/Delfino Route Start Time Stop Time Status Last Admin Dose Admin Amlodipine Besylate 10 mg DAILY PO 11/22/24 10:00 12/13/24 11:36 10 MG Hydralazine HCl 10 mg Q4HP PRN IV 11/23/24 09:15 12/09/24 00:11 10 MG Pantoprazole Sodium 40 mg BID IV 11/23/24 22:00 12/13/24 11:35 40 MG Sucralfate 1 gm BID PO 11/25/24 22:00 12/13/24 11:35 1 GM Diagnostic Test (Pha) 1 strip Q6HR 11/25/24 18:00 12/13/24 05:28 1 STRIP Insulin Human Regular FOLLOW SLIDING SCALE Q6HR SC 11/25/24 18:00 12/13/24 05:29 4 UNITS Dextrose 50 ml UD IV 11/25/24 17:15 Atorvastatin Calcium 40 mg HS PO 11/26/24 22:00 12/12/24 22:54 40 MG Metoprolol Tartrate 1.25 mg Q6HPRN PRN IV 11/28/24 18:30 12/12/24 11:10 1.25 MG Epoetin Rolando-epbx 4,000 unit MWF SC 12/01/24 14:00 UNV Enteral Nutritional Formula 1,000 ml 40ML/HR NG 12/02/24 18:00 12/13/24 06:15 1,000 ML Fat Emulsion Intravenous 150 ml/Sodium Chloride 40 meq/ Potassium Chloride 20 meq/ Multivitamins 10 ml/Chromium/ Copper/Manganese/ Zinc 1 ml/Amino Acids/Dextrose/ Purified Water 1,431 ml @ 59 mls/hr [id number] IV 12/03/24 22:00 12/04/24 21:59 Cancel Ipratropium [place] 0.5 mg Q4HR NEB 12/05/24 01:00 12/13/24 10:21 0.5 MG Epoetin Rolando-epbx 6,000 unit MWF@2100 ID 12/08/24 21:00 12/12/24 21:25 6,000 UNIT Amino Acids 0 ml @ 0 mls/hr PER PHARMACY IV 12/07/24 22:00 Amino Acids/ Electrolytes/ Dextrose 1,000 ml @ 41 mls/hr DAILY@2200 IV 12/07/24 22:00 12/11/24 20:35 41 MLS/HR Albumin Human 100 ml @ 100 mls/hr Q1HP PRN IV 12/08/24 10:15 12/08/24 10:29 100 MLS/HR Acetaminophen 1,000 mg Q8H PRN IV 12/08/24 17:15 12/13/24 11:11 1,000 MG Enteral Nutritional Formula 240 ml Q4HR PO 12/11/24 11:30 12/13/24 10:00 240 ML Metoprolol Tartrate 25 mg BID PO 12/12/24 22:00 Hold Norepinephrine Bitartrate 250 ml @ 3.75 mls/hr Q24H IV 12/12/24 13:30 12/13/24 06:22 45 MLS/HR Apixaban 2.5 mg BID PO 12/12/24 22:00 12/13/24 11:36 2.5 MG Phenylephrine HCl 250 ml @ 30 mls/hr Q8H20M IV 12/12/24 16:00 Vancomycin HCl 0 ml @ 0 mls/hr UD IV 12/12/24 17:15 Piperacillin Sod/ Tazobactam Sod 50 ml @ 12.5 mls/hr Q8H IV 12/12/24 18:00 12/13/24 11:35 12.5 MLS/HR Bumetanide 1 mg BIDD IV 12/13/24 10:00 12/13/24 11:43 1 MG Midazolam HCl 50 ml @ 1 mls/hr Q24H IV 12/13/24 11:00 Fentanyl Citrate 250 ml @ 2.5 mls/hr Q24H IV 12/13/24 11:00 Examination: GENERAL:Abnormal, LUNGS:Abnormal, MSK:Abnormal, NEURO:Abnormal laboratory and microbiology Laboratory Tests 12/13/24 02:15 Test 12/13/24 02:15 Range/Units Serum Glucose 155 H 74-106 mg/dL Microbiology Date/Time Source Procedure Growth Status 12/07/24 22:00 Nose MRSA Screen - Final Complete 11/25/24 09:23 Urine - Midstream Clean Catch Urine Culture - Final Complete Problem List/Assessment/Plan Problem List/Assessment/Plan ESRD on HD- CVA fronto parietal Status post PEG tube Acute hypoxic respiratory failure pneumonia, atelectasis--currently intubated 12/13 AFib with RVR Status post PEG tube HTN hx of COPD Anemia s/p PRBC transfusion recs Attempted repeat hemodialysis today but patient is not tolerate heart rate went high despite being on amiodarone dialysis had to be stopped after 1 hour Clinimix has been held and patient is started on tube feeds Next dialysis Sunday likely Renally dose antibiotics to GFR Levophed Plan discussed with: Other My Orders My Orders Orders - GERMAN WATERMAN MD Procedure Category Date Status Time Hemodialysis Orders ORDERS 12/13/24 Transmitted 04:00 Acute Hepatitis Panel LAB 12/13/24 In Process 07:32 Bumetanide Injection PHA 12/13/24 In Process (Bumex Injection) 10:00 Dietary Evaluation Review Comments: 1) Nepro Carbsteady 240ml TID 2) Consider renal standard diet 3) Monitor PO intake, lab values, weight trend, and I/O Expected Outcomes/Goals: To meet >75% estimated needs lab values to improve Fu 3-5 days CC Plasma Assessment Blood Product Administration S: 15:15 GERMAN WATERMAN MD Dec 13, 2024 12:09
[2024-12-13 12:20] LABS: Base Excess -1.0 mmol/L (-2.0-3.0)
--- NOTE | 2024-12-13 12:22 | DVHPN2 ---
Progress Note - Dictate Date Seen: Dec 12, 2024 Has the PT tested + for MRSA If YES, has PT been informed?: No Medical Necessity Reason Pt with a Central, PICC or Fol: Yes The following are medically ne: Ashraf Catheter vital signs Vital Sign Date Time Temp Pulse Resp B/P (MAP) Pulse Ox O2 Delivery O2 Flow Rate FiO2 12/13/24 11:43 127/27 12/13/24 10:31 95 26 100 12/13/24 10:21 40.0 12/13/24 10:21 60 12/13/24 10:21 Hi-Flow Heated NC+ 12/13/24 03:45 98.2 98.2 Total Intake and Output 12/12/24 12/12/24 12/13/24 15:00 23:00 07:00 Intake Total 904.24 ml 946.97 ml 524.96 ml Output Total 0 ml 200 ml 25 ml Balance 904.24 ml 746.97 ml 499.96 ml medications Current Medications Medications Dose Ordered Sig/Delfino Route Start Time Stop Time Status Last Admin Dose Admin Amlodipine Besylate 10 mg DAILY PO 11/22/24 10:00 12/13/24 11:36 10 MG Hydralazine HCl 10 mg Q4HP PRN IV 11/23/24 09:15 12/09/24 00:11 10 MG Pantoprazole Sodium 40 mg BID IV 11/23/24 22:00 12/13/24 11:35 40 MG Sucralfate 1 gm BID PO 11/25/24 22:00 12/13/24 11:35 1 GM Diagnostic Test (Pha) 1 strip Q6HR 11/25/24 18:00 12/13/24 05:28 1 STRIP Insulin Human Regular FOLLOW SLIDING SCALE Q6HR SC 11/25/24 18:00 12/13/24 05:29 4 UNITS Dextrose 50 ml UD IV 11/25/24 17:15 Atorvastatin Calcium 40 mg HS PO 11/26/24 22:00 12/12/24 22:54 40 MG Metoprolol Tartrate 1.25 mg Q6HPRN PRN IV 11/28/24 18:30 12/12/24 11:10 1.25 MG Epoetin Rolando-epbx 4,000 unit MWF SC 12/01/24 14:00 UNV Enteral Nutritional Formula 1,000 ml 40ML/HR NG 12/02/24 18:00 12/13/24 06:15 1,000 ML Fat Emulsion Intravenous 150 ml/Sodium Chloride 40 meq/ Potassium Chloride 20 meq/ Multivitamins 10 ml/Chromium/ Copper/Manganese/ Zinc 1 ml/Amino Acids/Dextrose/ Purified Water 1,431 ml @ 59 mls/hr [id number] IV 12/03/24 22:00 12/04/24 21:59 Cancel Ipratropium [place] 0.5 mg Q4HR NEB 12/05/24 01:00 12/13/24 10:21 0.5 MG Epoetin Rolando-epbx 6,000 unit MWF@2100 SC 12/08/24 21:00 12/12/24 21:25 6,000 UNIT Amino Acids 0 ml @ 0 mls/hr PER PHARMACY IV 12/07/24 22:00 Amino Acids/ Electrolytes/ Dextrose 1,000 ml @ 41 mls/hr DAILY@2200 IV 12/07/24 22:00 12/11/24 20:35 41 MLS/HR Albumin Human 100 ml @ 100 mls/hr Q1HP PRN IV 12/08/24 10:15 12/08/24 10:29 100 MLS/HR Acetaminophen 1,000 mg Q8H PRN IV 12/08/24 17:15 12/13/24 11:11 1,000 MG Enteral Nutritional Formula 240 ml Q4HR PO 12/11/24 11:30 12/13/24 10:00 240 ML Metoprolol Tartrate 25 mg BID PO 12/12/24 22:00 Hold Norepinephrine Bitartrate 250 ml @ 3.75 mls/hr Q24H IV 12/12/24 13:30 12/13/24 06:22 45 MLS/HR Apixaban 2.5 mg BID PO 12/12/24 22:00 12/13/24 11:36 2.5 MG Phenylephrine HCl 250 ml @ 30 mls/hr Q8H20M IV 12/12/24 16:00 Vancomycin HCl 0 ml @ 0 mls/hr UD IV 12/12/24 17:15 Piperacillin Sod/ Tazobactam Sod 50 ml @ 12.5 mls/hr Q8H IV 12/12/24 18:00 12/13/24 11:35 12.5 MLS/HR Bumetanide 1 mg BIDD IV 12/13/24 10:00 12/13/24 11:43 1 MG Midazolam HCl 50 ml @ 1 mls/hr Q24H IV 12/13/24 11:00 Fentanyl Citrate 250 ml @ 2.5 mls/hr Q24H IV 12/13/24 11:00 laboratory and microbiology Laboratory Tests 12/13/24 02:15 Test 12/13/24 02:15 Range/Units Serum Glucose 155 H 74-106 mg/dL Assessment/Plan Acute hypoxemic respiratory failure Noninvasive ventilation Respiratory alkalosis pleural effusion atelectases pneumonia End-stage renal disease hemodialysis Acute right MCA stroke The patient is seen and examined in the ICU events Patient became more more tachypneic Increasing oxygen requirements Upgraded to ICU Patient is started on high-flow oxygen Chest x-ray Concern for aspiration Pneumonia MRI report noted Acute infarction right middle cerebral artery distribution involving the right frontal and parietal lobes. Findings consistent with right M2 middle cerebral artery segment occlusion/thrombosis. Moderate chronic microvascular ischemic changes. Occipital scalp mass, indeterminate, measuring 6.6 x 3.0 cm. This does NOT have features of a fatty containing lesion Management plan Continue high-flow Okay to use BiPAP p.r.n. Dialysis Dialysis per Nephrology with fluid removal Bronchodilators NPO in view of risk For aspiration TPN for nutrition Broad-spectrum antibiotics for pneumonia Observed for 24 hours If there was no improvement we will proceed to intubation Patient is full code for now family fully updated Critical care time 35 minutes Dietary Evaluation Review Comments: 1) Nepro Carbsteady 240ml TID 2) Consider renal standard diet 3) Monitor PO intake, lab values, weight trend, and I/O Expected Outcomes/Goals: To meet >75% estimated needs lab values to improve Fu 3-5 days Plan discussed with: Patient CC Plasma Assessment Blood Product Administration S: 15:15 TORSTEN GREEN MD Dec 13, 2024 12:22
--- NOTE | 2024-12-13 12:24 | DVHPN2 ---
Progress Note - Dictate Date Seen: Dec 13, 2024 Has the PT tested + for MRSA If YES, has PT been informed?: No Medical Necessity Reason Pt with a Central, PICC or Fol: Yes The following are medically ne: Ashraf Catheter vital signs Vital Sign Date Time Temp Pulse Resp B/P (MAP) Pulse Ox O2 Delivery O2 Flow Rate FiO2 12/13/24 11:43 127/27 12/13/24 10:31 95 26 100 12/13/24 10:21 40.0 12/13/24 10:21 60 12/13/24 10:21 Hi-Flow Heated NC+ 12/13/24 03:45 98.2 98.2 Total Intake and Output 12/12/24 12/12/24 12/13/24 15:00 23:00 07:00 Intake Total 904.24 ml 946.97 ml 524.96 ml Output Total 0 ml 200 ml 25 ml Balance 904.24 ml 746.97 ml 499.96 ml medications Current Medications Medications Dose Ordered Sig/Delfino Route Start Time Stop Time Status Last Admin Dose Admin Amlodipine Besylate 10 mg DAILY PO 11/22/24 10:00 12/13/24 11:36 10 MG Hydralazine HCl 10 mg Q4HP PRN IV 11/23/24 09:15 12/09/24 00:11 10 MG Pantoprazole Sodium 40 mg BID IV 11/23/24 22:00 12/13/24 11:35 40 MG Sucralfate 1 gm BID PO 11/25/24 22:00 12/13/24 11:35 1 GM Diagnostic Test (Pha) 1 strip Q6HR 11/25/24 18:00 12/13/24 05:28 1 STRIP Insulin Human Regular FOLLOW SLIDING SCALE Q6HR SC 11/25/24 18:00 12/13/24 05:29 4 UNITS Dextrose 50 ml UD IV 11/25/24 17:15 Atorvastatin Calcium 40 mg HS PO 11/26/24 22:00 12/12/24 22:54 40 MG Metoprolol Tartrate 1.25 mg Q6HPRN PRN IV 11/28/24 18:30 12/12/24 11:10 1.25 MG Epoetin Rolando-epbx 4,000 unit MWF SC 12/01/24 14:00 UNV Enteral Nutritional Formula 1,000 ml 40ML/HR NG 12/02/24 18:00 12/13/24 06:15 1,000 ML Fat Emulsion Intravenous 150 ml/Sodium Chloride 40 meq/ Potassium Chloride 20 meq/ Multivitamins 10 ml/Chromium/ Copper/Manganese/ Zinc 1 ml/Amino Acids/Dextrose/ Purified Water 1,431 ml @ 59 mls/hr [id number] IV 12/03/24 22:00 12/04/24 21:59 Cancel Ipratropium [place] 0.5 mg Q4HR NEB 12/05/24 01:00 12/13/24 10:21 0.5 MG Epoetin Rolando-epbx 6,000 unit MWF@2100 SC 12/08/24 21:00 12/12/24 21:25 6,000 UNIT Amino Acids 0 ml @ 0 mls/hr PER PHARMACY IV 12/07/24 22:00 Amino Acids/ Electrolytes/ Dextrose 1,000 ml @ 41 mls/hr DAILY@2200 IV 12/07/24 22:00 12/11/24 20:35 41 MLS/HR Albumin Human 100 ml @ 100 mls/hr Q1HP PRN IV 12/08/24 10:15 12/08/24 10:29 100 MLS/HR Acetaminophen 1,000 mg Q8H PRN IV 12/08/24 17:15 12/13/24 11:11 1,000 MG Enteral Nutritional Formula 240 ml Q4HR PO 12/11/24 11:30 12/13/24 10:00 240 ML Metoprolol Tartrate 25 mg BID PO 12/12/24 22:00 Hold Norepinephrine Bitartrate 250 ml @ 3.75 mls/hr Q24H IV 12/12/24 13:30 12/13/24 06:22 45 MLS/HR Apixaban 2.5 mg BID PO 12/12/24 22:00 12/13/24 11:36 2.5 MG Phenylephrine HCl 250 ml @ 30 mls/hr Q8H20M IV 12/12/24 16:00 Vancomycin HCl 0 ml @ 0 mls/hr UD IV 12/12/24 17:15 Piperacillin Sod/ Tazobactam Sod 50 ml @ 12.5 mls/hr Q8H IV 12/12/24 18:00 12/13/24 11:35 12.5 MLS/HR Bumetanide 1 mg BIDD IV 12/13/24 10:00 12/13/24 11:43 1 MG Midazolam HCl 50 ml @ 1 mls/hr Q24H IV 12/13/24 11:00 Fentanyl Citrate 250 ml @ 2.5 mls/hr Q24H IV 12/13/24 11:00 laboratory and microbiology Laboratory Tests 12/13/24 02:15 Test 12/13/24 02:15 Range/Units Serum Glucose 155 H 74-106 mg/dL Assessment/Plan Acute hypoxemic respiratory failure Noninvasive ventilation Respiratory alkalosis pleural effusion atelectases pneumonia End-stage renal disease hemodialysis Acute right MCA stroke The patient is seen and examined in the ICU events Patient continued to decline in spite of dialysis Remains on Levophed at 30 mcg for hemodynamic instability Eventually patient will have to be intubated and placed on mechanical ventilation Subsequently bronchoscopy was done For details of this procedure see separate notes MRI report noted Acute infarction right middle cerebral artery distribution involving the right frontal and parietal lobes. Findings consistent with right M2 middle cerebral artery segment occlusion/thrombosis. Moderate chronic microvascular ischemic changes. Occipital scalp mass, indeterminate, measuring 6.6 x 3.0 cm. This does NOT have features of a fatty containing lesion Management plan Sedation Versed/propofol/fentanyl full ventilator asynchrony AC volume control 16 500 peep of seven FiO2 100% Follow up ABG off the intubation pH 7.48 pCO2 30 PO2 221 We will continue Dialysis per Nephrology with fluid removal Bronchodilators TPN for nutrition Broad-spectrum antibiotics for pneumonia Prognosis very poor Patient is full code for now family fully updated Critical care time 35 minutes Excluding procedure time Dietary Evaluation Review Comments: 1) Nepro Carbsteady 240ml TID 2) Consider renal standard diet 3) Monitor PO intake, lab values, weight trend, and I/O Expected Outcomes/Goals: To meet >75% estimated needs lab values to improve Fu 3-5 days Plan discussed with: Patient CC Plasma Assessment Blood Product Administration S: 15:15 TORSTEN GREEN MD Dec 13, 2024 12:24
--- NOTE | 2024-12-13 12:26 | DVHNC2 ---
Procedure - Procedure Rapid sequence intubation Indication Respiratory failure Procedure in detail consent was obtained time-out with the protocol premedicated with etomidate 20 mg IV and rocuronium 50 mg IV Gore scope was used and size 8.0 Welsh endotracheal tube passed through the vocal cords and secured at 23 cm at the mouth. Come back position of the tube was confirmed by auscultation of the breath sounds heard bilaterally in the lungs and positive capnography Chest x-ray ordered TORSTEN GREEN MD Dec 13, 2024 12:25
--- NOTE | 2024-12-13 12:27 | DVHNC2 ---
Procedure - Procedure bronchoscopy Indication respiratory failure and aspiration Procedure in detail Consent was obtained Time-out the protocol Flexible scope was passed through endotracheal tube tracheobronchial tree was examined. Labeled copious thick secretions in the lower lobes bilaterally which was suctioned several approximately 60 cc of normal saline was used to loosen up the secretions sample obtained for Gram stain and cultures. At the end with the procedure the scope was removed there were no endobronchial lesions with mucosa. Generally inflamed and edematous TORSTEN GREEN MD Dec 13, 2024 12:27
--- NOTE | 2024-12-13 14:10 | DVHPN2 ---
Subjective Overnight events noted. This morning ABG was done patient eventually had elective intubation per Dr. Bhakta , status post bronchoscopy with a bronchoalveolar lavage. Reviewed: Care Plan Changes from previous H/P or p: Changes (Patient has electively intubated for acute hypoxic respiratory failure.) Objective Vitals Vital Signs Date Time Temp Pulse Resp B/P (MAP) Pulse Ox O2 Delivery O2 Flow Rate FiO2 12/13/24 12:24 76 18 129/22 (57) 100 80 12/13/24 10:21 40.0 12/13/24 10:21 Hi-Flow Heated NC+ 12/13/24 03:45 98.2 98.2 Intake/Output Intake and Output 12/13/24 07:00 Intake Total 2376.17 ml Output Total 225 ml Balance 2151.17 ml Intake Oral 60 ml IV Total 1916.17 ml Tube Feeding 300 ml Other 100 ml Output Urine Total 225 ml Exam HEENT pupils are reactive Neck is supple CV is S1-S2 regular rate and rhythm Respiratory diminished breath sounds bases GI positive bowel sound , positive colostomy Extremity no edema CORRECTIONS [employer] left-sided hemiplegia. Medications Current Medications Medications Dose Ordered Sig/Delfino Route Start Time Stop Time Status Last Admin Dose Admin Amlodipine Besylate 10 mg DAILY PO 11/22/24 10:00 12/13/24 11:36 10 MG Hydralazine HCl 10 mg Q4HP PRN IV 11/23/24 09:15 12/09/24 00:11 10 MG Pantoprazole Sodium 40 mg BID IV 11/23/24 22:00 12/13/24 11:35 40 MG Sucralfate 1 gm BID PO 11/25/24 22:00 12/13/24 11:35 1 GM Diagnostic Test (Pha) 1 strip Q6HR 11/25/24 18:00 12/13/24 12:00 1 STRIP Insulin Human Regular FOLLOW SLIDING SCALE Q6HR SC 11/25/24 18:00 12/13/24 13:32 4 UNITS Dextrose 50 ml UD IV 11/25/24 17:15 Atorvastatin Calcium 40 mg HS PO 11/26/24 22:00 12/12/24 22:54 40 MG Metoprolol Tartrate 1.25 mg Q6HPRN PRN IV 11/28/24 18:30 12/12/24 11:10 1.25 MG Epoetin Rolando-epbx 4,000 unit MWF [place] 12/01/24 14:00 UNV Enteral Nutritional Formula 1,000 ml 40ML/HR NG 12/02/24 18:00 12/13/24 06:15 1,000 ML Fat Emulsion Intravenous 150 ml/Sodium Chloride 40 meq/ Potassium Chloride 20 meq/ Multivitamins 10 ml/Chromium/ Copper/Manganese/ Zinc 1 ml/Amino Acids/Dextrose/ Purified Water 1,431 ml @ 59 mls/hr [id number] IV 12/03/24 22:00 12/04/24 21:59 Cancel Ipratropium [place] 0.5 mg Q4HR NEB 12/05/24 01:00 12/13/24 10:21 0.5 MG Epoetin Rolando-epbx 6,000 unit MWF@2100 [place] 12/08/24 21:00 12/12/24 21:25 6,000 UNIT Amino Acids 0 ml @ 0 mls/hr PER PHARMACY IV 12/07/24 22:00 Amino Acids/ Electrolytes/ Dextrose 1,000 ml @ 41 mls/hr DAILY@2200 IV 12/07/24 22:00 12/11/24 20:35 41 MLS/HR Albumin Human 100 ml @ 100 mls/hr Q1HP PRN IV 12/08/24 10:15 12/08/24 10:29 100 MLS/HR Acetaminophen 1,000 mg Q8H PRN IV 12/08/24 17:15 12/13/24 11:11 1,000 MG Enteral Nutritional Formula 240 ml Q4HR PO 12/11/24 11:30 12/13/24 10:00 240 ML Metoprolol Tartrate 25 mg BID PO 12/12/24 22:00 Hold Norepinephrine Bitartrate 250 ml @ 3.75 mls/hr Q24H IV 12/12/24 13:30 12/13/24 06:22 45 MLS/HR Apixaban 2.5 mg BID PO 12/12/24 22:00 12/13/24 11:36 2.5 MG Phenylephrine HCl 250 ml @ 30 mls/hr Q8H20M IV 12/12/24 16:00 Vancomycin HCl 0 ml @ 0 mls/hr UD IV 12/12/24 17:15 Piperacillin Sod/ Tazobactam Sod 50 ml @ 12.5 mls/hr Q8H IV 12/12/24 18:00 12/13/24 11:35 12.5 MLS/HR Bumetanide 1 mg BIDD IV 12/13/24 10:00 12/13/24 11:43 1 MG Midazolam HCl 50 ml @ 1 mls/hr Q24H IV 12/13/24 11:00 12/13/24 11:00 1 MLS/HR Fentanyl Citrate 250 ml @ 2.5 mls/hr Q24H IV 12/13/24 11:00 12/13/24 11:00 2.5 MLS/HR Laboratory Results Laboratory Tests 12/13/24 02:15 Chemistry Test 12/12/24 18:43 12/13/24 02:15 Magnesium Level 1.9 mg/dL (1.6-2.6) 1.9 mg/dL (1.6-2.6) Albumin 3.7 g/dL (3.2-4.8) Calcium Level 8.4 mg/dL (8.7-10.4) L Phosphorus Level 2.2 mg/dL (2.4-5.1) L Total Protein 6.5 g/dL (5.7-8.2) LFT Test 12/13/24 02:15 Alanine Aminotransferase (ALT) 42 U/L (7-40) H Alkaline Phosphatase 146 U/L (46-116) H Aspartate Amino Transferase (AST) 99 U/L (13-40) H Total Bilirubin 1.5 mg/dL (0.2-1.0) H Urinalysis Test 11/23/24 05:50 11/25/24 09:23 Urine Amorphous Crystals Few /hpf (None Seen) Urine Color Light-brown (Yellow) Urine Clarity Turbid (Clear) H Urine pH 8.5 (5.0-9.0) Urine Specific [place] 1.011 (1.001-1.035) Urine Protein 3+ (Negative) H Urine Ketones Trace (Negative) Urine Blood 3+ /uL (Negative) H Urine Nitrite Negative (Negative) Urine Bilirubin Negative (Negative) Urine Urobilinogen Normal mg/dL (Negative) Urine Leukocyte Esterase 3+ /uL (Negative) Urine RBC 2271 /hpf (0 - 3) Urine WBC Clumps Present /hpf (None Seen) Urine Microscopic WBC 312 /HPF (0-3) H Urine Squamous Epithelial Cells None seen /hpf (<5) Urine Bacteria None seen /hpf (None Seen) Urine Glucose Trace mg/dL (Normal) Blood Gas Results Test 12/13/24 10:07 12/13/24 12:12 Arterial Blood pH 7.571 (7.350-7.450) 7.481 (7.350-7.450) FiO2 % 60.0 100.0 Microbiology Microbiology Date/Time Source Procedure Growth Status 12/07/24 22:00 Nose MRSA Screen - Final Complete 11/25/24 09:23 Urine - Midstream Clean Catch Urine Culture - Final Complete Assessment/Plan Assessment/Plan 78-year-old male with a known history of colon cancer status post partial colectomy status post oral chemotherapy currently in remission, end-stage renal disease on hemodialysis, chronic AFib was on Eliquis, hypertension, COPD initially presented to hospital with a black tarry stools found to have upper GI bleed status post EGD showed gastroduodenitis. Patient's hospital course was eventful for acute right MCA with left-sided hemiplegia. Patient is currently status post PEG tube placement was on tube feeding when he went into respiratory distress requiring ICU level care. 1. Acute hypoxic respiratory failure suspect aspiration pneumonia status post elective intubation currently on ventilator support 2.. Acute/subacute right MCA with left-sided hemiplegia 2. Acute delirium/acute encephalopathy suspect secondary to subacute CVA 3.Melanotic stools ruled out upper GI bleed, status post EGD showed gastro duodenitis 4. History of colon cancer status post partial colectomy status post chemotherapy, status post colostomy 5. End-stage renal disease on hemodialysis 6.. Hypertension 7. COPD 8 failure to thrive, status post PEG tube, resume tube feeding to -discontinue Clinimix, start tube feeding, follow up bronchoalveolar lavage Gram stain and culture -continue Protonix Carafate, resume Eliquis as well -plan of care discussed with the patient's bedside RN as well as patient's daughter and other family members at bedside. -patient is full code for now. -patient patient's care will be transferred to [facility] as they are designated hospitalist for this O insurance. , detailed sign out has been givenDr Castillo. Plan discussed with: Other (Patient's bedside RN Shelbi.) My Orders Orders - BRIE BOLAND MD Procedure Category Date Status Time Phenylephrine Iv PHA 12/12/24 In Process (Phenylephrine/Ns) 16:00 Clinimix Per Pharmacy SONJA 12/12/24 In Process 22:00 Vancomycin Per PHA 12/12/24 In Process Pharmacy 17:15 Piperacillin-Tazob PHA 12/12/24 In Process 2.25gm (Zosyn 2.25gm) 18:00 Communication Order ORDERS 12/12/24 Transmitted 12:30 Complete Blood Count LAB 12/14/24 Verified 04:00 Creatinine LAB 12/14/24 Verified 04:00 Vancomycin,Random LAB 12/14/24 Verified 04:00 Abg W/ Co-Ox RT 12/13/24 Logged 09:41 Date of Service: Dec 13, 2024 Billing Provider: BRIE BOLAND MD Common Visit Codes: [id number] INP/OBS CARE(HIGH) BRIE BOLAND MD Dec 13, 2024 14:10
[2024-12-13] MEDS: SODIUM PHOSPHATES 20 MEQ in SODIUM CHL 0.9% 100 ML IV ONE (14:30)
--- NOTE | 2024-12-13 23:34 | DVHPN2 ---
Consult Progress Note Subjective Other Systems: Patient was seen and evaluated in follow up in the ICU. Patient is in sinus tachycardia in the low 100s on the rn cardiac rehab. Patient remains on Amiodarone drip at 0.5mg. Patient is on 40 L Hi flow heated NC. WBC 26, HGB 7.8, HCT 23.4, K 3.4, CL 93, BUN 79, RIGHT OF WAY SUPERVISOR 4.04, CA 8.4, AST 99, ALT 42. Chest x-ray shows left basilar consolidation similar to prior. Objective vital signs Vital Sign Date Time Temp Pulse Resp B/P (MAP) Pulse Ox O2 Delivery O2 Flow Rate FiO2 12/13/24 12:24 76 18 129/22 (57) 100 80 12/13/24 10:21 40.0 12/13/24 10:21 Hi-Flow Heated NC+ 12/13/24 03:45 98.2 98.2 Total Intake and Output 12/12/24 12/12/24 12/13/24 15:00 23:00 07:00 Intake Total 904.24 ml 946.97 ml 524.96 ml Output Total 0 ml 200 ml 25 ml Balance 904.24 ml 746.97 ml 499.96 ml medications Current Medications Medications Dose Ordered Sig/Delfino Route Start Time Stop Time Status Last Admin Dose Admin Amlodipine Besylate 10 mg DAILY PO 11/22/24 10:00 12/13/24 11:36 10 MG Hydralazine HCl 10 mg Q4HP PRN IV 11/23/24 09:15 12/09/24 00:11 10 MG Pantoprazole Sodium 40 mg BID IV 11/23/24 22:00 12/13/24 11:35 40 MG Sucralfate 1 gm BID PO 11/25/24 22:00 12/13/24 11:35 1 GM Diagnostic Test (Pha) 1 strip Q6HR 11/25/24 18:00 12/13/24 05:28 1 STRIP Insulin Human Regular FOLLOW SLIDING SCALE Q6HR SC 11/25/24 18:00 12/13/24 05:29 4 UNITS Dextrose 50 ml UD IV 11/25/24 17:15 Atorvastatin Calcium 40 mg HS PO 11/26/24 22:00 12/12/24 22:54 40 MG Metoprolol Tartrate 1.25 mg Q6HPRN PRN IV 11/28/24 18:30 12/12/24 11:10 1.25 MG Epoetin Rolando-epbx 4,000 unit MWF SC 12/01/24 14:00 UNV Enteral Nutritional Formula 1,000 ml 40ML/HR NG 12/02/24 18:00 12/13/24 06:15 1,000 ML Fat Emulsion Intravenous 150 ml/Sodium Chloride 40 meq/ Potassium Chloride 20 meq/ Multivitamins 10 ml/Chromium/ Copper/Manganese/ Zinc 1 ml/Amino Acids/Dextrose/ Purified Water 1,431 ml @ 59 mls/hr [id number] IV 12/03/24 22:00 12/04/24 21:59 Cancel Ipratropium [place] 0.5 mg Q4HR NEB 12/05/24 01:00 12/13/24 10:21 0.5 MG Epoetin Rolando-epbx 6,000 unit MWF@2100 [place] 12/08/24 21:00 12/12/24 21:25 6,000 UNIT Amino Acids 0 ml @ 0 mls/hr PER PHARMACY IV 12/07/24 22:00 Amino Acids/ Electrolytes/ Dextrose 1,000 ml @ 41 mls/hr DAILY@2200 IV 12/07/24 22:00 12/11/24 20:35 41 MLS/HR Albumin Human 100 ml @ 100 mls/hr Q1HP PRN IV 12/08/24 10:15 12/08/24 10:29 100 MLS/HR Acetaminophen 1,000 mg Q8H PRN IV 12/08/24 17:15 12/13/24 11:11 1,000 MG Enteral Nutritional Formula 240 ml Q4HR PO 12/11/24 11:30 12/13/24 10:00 240 ML Metoprolol Tartrate 25 mg BID PO 12/12/24 22:00 Hold Norepinephrine Bitartrate 250 ml @ 3.75 mls/hr Q24H IV 12/12/24 13:30 12/13/24 06:22 45 MLS/HR Apixaban 2.5 mg BID PO 12/12/24 22:00 12/13/24 11:36 2.5 MG Phenylephrine HCl 250 ml @ 30 mls/hr Q8H20M IV 12/12/24 16:00 Vancomycin HCl 0 ml @ 0 mls/hr UD IV 12/12/24 17:15 Piperacillin Sod/ Tazobactam Sod 50 ml @ 12.5 mls/hr Q8H IV 12/12/24 18:00 12/13/24 11:35 12.5 MLS/HR Bumetanide 1 mg BIDD IV 12/13/24 10:00 12/13/24 11:43 1 MG Midazolam HCl 50 ml @ 1 mls/hr Q24H IV 12/13/24 11:00 Fentanyl Citrate 250 ml @ 2.5 mls/hr Q24H IV 12/13/24 11:00 Examination: GENERAL:Normal, HEENT:Normal, NECK:Normal, LUNGS:Abnormal, CVS:Abnormal, ABDOMEN:Normal, MSK:Normal, SKIN:Normal laboratory and microbiology Laboratory Tests 12/13/24 02:15 Test 12/13/24 02:15 Range/Units Serum Glucose 155 H 74-106 mg/dL Problem List/Assessment/Plan Problem List/Assessment/Plan Problem List Atrial fibrillation with a rapid ventricular response. Severe anemia status post PRBC transfusions. Acute right MCA territory CVA. NSTEMI, likely type 2 secondary to above. Acute hypoxic respiratory failure, ?Aspiration pneumonia. ?Sepsis . Mild tricuspid regurgitation. End-stage renal disease on hemodialysis. History of colon cancer status post colectomy and colostomy. COPD. Plan/Recommendations Continued all current supportive medical care. Patient has been seen by Floridalma Schaefer NP on my behalf, her and I discussed the plan with the patient. Repleted electrolytes. Transthoracic echocardiogram reveals EF 55%. [id number] VASc score: 5 points, HAS-BLED score: 4 points. GI has cleared the patient to initiate Eliquis 2.5 mg b.i.d. through PEG tube. Antiarrhythmic agent, amiodarone bolus followed by IV drip per protocol. Beta-freedom for rate control. Monitor and replete electrolytes as needed, keep potassium greater than four and magnesium greater than two. Closely monitor hemoglobin and hematocrit, transfuse as needed. Close Cardiac surveillance. The patient was initially seen by the cardiology team on 11/27/2024 when he was noted to go into atrial fibrillation with a rapid ventricular response. At that time, medical management was done and the patient converted into a normal sinus rhythm. Cardiology had since signed off. Today, the patient was noted to go back into an atrial fibrillation with rapid ventricular response rhythm. A twelve lead electrocardiogram was obtained and confirmed rhythm. At the time of assessment, the patient was noted to have coarse breath sounds and increased work of breathing and SpO2 82% on room air. The patient was placed on a high-flow nasal cannula and transferred down to the intensive care unit. Amiodarone IV bolus was ordered followed by the amiodarone IV drip protocol. Patient also noted to have an elevated temperature and elevated WBCs today. Primary team suspecting possible aspiration pneumonia. Recommend to treat the underlying cause to improve heart rate. Continue with close cardiac surveillance. Additional plan as per the hospital course. Plan discussed with: Patient Dietary Evaluation Review Comments: 1) Nepro Carbsteady 240ml TID 2) Consider renal standard diet 3) Monitor PO intake, lab values, weight trend, and I/O Expected Outcomes/Goals: To meet >75% estimated needs lab values to improve Fu 3-5 days CC Plasma Assessment Blood Product Administration S: 15:15 Date of Service: Dec 13, 2024 Billing Provider: NIKKO PANTOJA MD Cardiology Common Codes: 90587-[id number] HOSP CARE(High Cardiology Consultation Codes: [id number] CONSULT <45MIN NIKKO PANTOJA MD Dec 13, 2024 13:06
[2024-12-14] VITALS (115 sets, daily range): BP systolic 85–157; BP diastolic 15–38; PULSE 69–121; RESP 11–28; TEMP 98.2–99.9; O2SAT 92–100
[2024-12-14 03:43] LABS: Hemoglobin 7.2 g/dL (13.5-17.5); Mean Corpuscular Volume 88.6 fL (80.0-100.0)
[2024-12-14 03:45] LABS: Hematocrit 21.7 % (41.0-53.0); Mean Corpuscular Hemoglobin 29.4 pg (28.0-32.0); Nucleated Red Blood Cells % 0.1 %
[2024-12-14 03:56] LABS: Alanine Aminotransferase 17 U/L (7-40); Albumin 3.4 g/dL (3.2-4.8); Anion Gap 13 (5-15); BUN/Creatinine Ratio 15.7 (10.0-20.0); Carbon Dioxide 24 mmol/L (20-31); Chloride 99 mmol/L (98-107); Magnesium 2.3 mg/dL (1.6-2.6); Potassium 3.9 mmol/L (3.5-5.1); Sodium 136 mmol/L (136-145); Total Protein 6.0 g/dL (5.7-8.2)
[2024-12-14 03:58] LABS: Bilirubin, Total 1.1 mg/dL (0.2-1.0)
[2024-12-14 04:34] LABS: Alkaline Phosphatase 125 U/L (46-116); Blood Urea Nitrogen 62 mg/dL (9-23); Calcium 8.5 mg/dL (8.7-10.4); Glucose 137 mg/dL (74-106)
--- NOTE | 2024-12-14 06:58 | DVH ---
CHEST RADIOGRAPH Indication: SOB Technique: Single frontal view of the chest was obtained COMPARISON: XY CHEST PORTABLE on DOS: 12/13/24, XY CHEST PORTABLE on DOS: 12/12/24, XY CHEST PORTABLE o n DOS: 12/07/24, XY CHEST XRAY 1 VIEW on DOS: 12/05/24, XY CHEST XRAY 1 VIEW on DOS: 12/04/24, XY CHEST PO RTABLE on DOS: 12/13/24 FINDINGS: Lines and tubes: ET in the mid thoracic trachea. Tunneled right central venous catheter. Cardiomediastinal silhouette: Prominent Pulmonary vasculature: Prominent Lung expansion: Left basilar consolidation. Lung airspace: normal Lung interstitium: normal Pleura: Trace left effusion. Pneumothorax: no Bones: Unremarkable Other: no IMPRESSION: ET in the mid thoracic trachea. Left basilar consolidation similar to prior..
--- NOTE | 2024-12-14 07:26 | DVHPN2 ---
Progress Note Date Seen: Dec 14, 2024 Has the PT tested + for MRSA If YES, has PT been informed?: No Medical Necessity Reason Pt with a Central, PICC or Fol: Yes The following are medically ne: Ashraf Catheter Subjective Patient reports: Other Review of Systems: Not Done Objective vital signs Vital Sign Date Time Temp Pulse Resp B/P (MAP) Pulse Ox O2 Delivery O2 Flow Rate FiO2 12/14/24 07:00 99.0 74 18 122/24 (56) 100 99.0 12/14/24 06:00 30 12/13/24 20:00 Mechanical Ventilator+ 12/13/24 10:21 40.0 Total Intake and Output 12/13/24 12/13/24 12/14/24 15:00 23:00 07:00 Intake Total 599.28 ml 607.63 ml 787.64 ml Output Total 5 ml 25 ml Balance 599.28 ml 602.63 ml 762.64 ml medications Current Medications Medications Dose Ordered Sig/Delfino Route Start Time Stop Time Status Last Admin Dose Admin Amlodipine Besylate 10 mg DAILY PO 11/22/24 10:00 12/13/24 11:36 10 MG Hydralazine HCl 10 mg Q4HP PRN IV 11/23/24 09:15 12/09/24 00:11 10 MG Pantoprazole Sodium 40 mg BID IV 11/23/24 22:00 12/13/24 22:32 40 MG Sucralfate 1 gm BID PO 11/25/24 22:00 12/13/24 22:32 1 GM Diagnostic Test (Pha) 1 strip Q6HR 11/25/24 18:00 12/14/24 05:31 1 STRIP Insulin Human Regular FOLLOW SLIDING SCALE Q6HR SC 11/25/24 18:00 12/14/24 05:33 2 UNITS Dextrose 50 ml UD IV 11/25/24 17:15 Atorvastatin Calcium 40 mg HS PO 11/26/24 22:00 12/13/24 22:33 40 MG Metoprolol Tartrate 1.25 mg Q6HPRN PRN IV 11/28/24 18:30 12/12/24 11:10 1.25 MG Epoetin Rolando-epbx 4,000 unit MWF SC 12/01/24 14:00 UNV Enteral Nutritional Formula 1,000 ml 40ML/HR NG 12/02/24 18:00 12/13/24 06:15 1,000 ML Fat Emulsion Intravenous 150 ml/Sodium Chloride 40 meq/ Potassium Chloride 20 meq/ Multivitamins 10 ml/Chromium/ Copper/Manganese/ Zinc 1 ml/Amino Acids/Dextrose/ Purified Water 1,431 ml @ 59 mls/hr [id number] IV 12/03/24 22:00 12/04/24 21:59 Cancel Ipratropium [place] 0.5 mg Q4HR NEB 12/05/24 01:00 12/14/24 05:37 0.5 MG Epoetin Rolando-epbx 6,000 unit MWF@2100 [place] 12/08/24 21:00 12/12/24 21:25 6,000 UNIT Amino Acids 0 ml @ 0 mls/hr PER PHARMACY IV 12/07/24 22:00 Amino Acids/ Electrolytes/ Dextrose 1,000 ml @ 41 mls/hr DAILY@2200 IV 12/07/24 22:00 12/11/24 20:35 41 MLS/HR Albumin Human 100 ml @ 100 mls/hr Q1HP PRN IV 12/08/24 10:15 12/08/24 10:29 100 MLS/HR Acetaminophen 1,000 mg Q8H PRN IV 12/08/24 17:15 12/13/24 11:11 1,000 MG Enteral Nutritional Formula 240 ml Q4HR PO 12/11/24 11:30 12/13/24 10:00 240 ML Metoprolol Tartrate 25 mg BID PO 12/12/24 22:00 Hold Norepinephrine Bitartrate 250 ml @ 3.75 mls/hr Q24H IV 12/12/24 13:30 12/14/24 02:13 33.75 MLS/HR Apixaban 2.5 mg BID PO 12/12/24 22:00 12/13/24 22:33 2.5 MG Phenylephrine HCl 250 ml @ 30 mls/hr Q8H20M IV 12/12/24 16:00 Vancomycin HCl 0 ml @ 0 mls/hr UD IV 12/12/24 17:15 Piperacillin Sod/ Tazobactam Sod 50 ml @ 12.5 mls/hr Q8H IV 12/12/24 18:00 12/14/24 02:08 12.5 MLS/HR Bumetanide 1 mg BIDD IV 12/13/24 10:00 12/14/24 05:52 1 MG Midazolam HCl 50 ml @ 1 mls/hr Q24H IV 12/13/24 11:00 12/13/24 19:31 2 MLS/HR Fentanyl Citrate 250 ml @ 2.5 mls/hr Q24H IV 12/13/24 11:00 12/13/24 11:00 2.5 MLS/HR Examination: GENERAL:Normal, LUNGS:Abnormal, CVS:Normal, ABDOMEN:Abnormal laboratory and microbiology Laboratory Tests 12/14/24 03:00 Test 12/14/24 03:00 Range/Units Serum Glucose 137 H 74-106 mg/dL Problem List/Assessment/Plan Problem List/Assessment/Plan 1) Acute on chronic respiratory failure, now intubated on ventilatory 2) Acute CVA with hemiplegia 3) Dysphagia 2/2 above s/p PEG placement 4) PNA, ?aspiration vs hospital acquired 5) Gram positive bacteremia 6) Septic shock 7) ESRD on HD 8) Hx of colon cancer s/p colostomy 9) COPD 10) HTN 11) Anemia s/p EGD with GI plan; 12/14---patient now intubated on ventilator with fio2 60%, had bronch done with pulm with BAL, on 18mcg levophed for vasopressor support this AM, BCx show gram pos cocci, continue with broad spectrum IV ABx, WBC trending down, nephrology on board for ESRD and HD needs, echo done earlier in hospital course shows EF 55%, LTACH order placed for acceptance to half-way care facility, i spoke to the patients dtr Adele at length and explained to her the patients overall critical condition and at this time she would like to continue with full code and is agreeable to proceed to transfer to LTACH once accepted, continue all supportive care, cardio/pulm/GI/renal/neuro all on board and lean consultant input appreciated, will follow along medically Plan discussed with: Other (n) Dietary Evaluation Review Comments: 1) Nepro Carbsteady 240ml TID 2) Consider renal standard diet 3) Monitor PO intake, lab values, weight trend, and I/O Expected Outcomes/Goals: To meet >75% estimated needs lab values to improve Fu 3-5 days MILO MULLINS MD Dec 14, 2024 07:25
[2024-12-14 07:37] LABS: Base Excess -2.2 mmol/L (-2.0-3.0)
--- NOTE | 2024-12-14 11:00 | DVHPN2 ---
Subjective Sinus rhythm Remained on amiodarone drip at 0.25mg Mechanical ventilator Currently on Levophed drip No cardiac events reported H&H decreasing Reviewed: Care Plan Changes from previous H/P or p: Changes Objective Vitals Vital Signs Date Time Temp Pulse Resp B/P (MAP) Pulse Ox O2 Delivery O2 Flow Rate FiO2 12/14/24 09:53 73 18 123/23 (56) 100 30 12/14/24 07:00 99.0 99.0 12/13/24 20:00 Mechanical Ventilator+ 12/13/24 10:21 40.0 Intake/Output Intake and Output 12/14/24 07:00 Intake Total 1994.55 ml Output Total 30 ml Balance 1964.55 ml Intake Oral 60 ml IV Total 1569.55 ml Tube Feeding 365 ml Output Urine Total 30 ml General Appearance: Other (Sedated) Lungs: Other (Mechanical ventilator) Cardiovascular: Other (Sinus rhythm on amiodarone gtt 0.25mcg, Levophed) Abdomen: Soft, No tenderness Medications Current Medications Medications Dose Ordered Sig/Delfino Route Start Time Stop Time Status Last Admin Dose Admin Amlodipine Besylate 10 mg DAILY PO 11/22/24 10:00 12/13/24 11:36 10 MG Hydralazine HCl 10 mg Q4HP PRN IV 11/23/24 09:15 12/09/24 00:11 10 MG Pantoprazole Sodium 40 mg BID IV 11/23/24 22:00 12/14/24 09:54 40 MG Sucralfate 1 gm BID PO 11/25/24 22:00 12/13/24 22:32 1 GM Diagnostic Test (Pha) 1 strip Q6HR 11/25/24 18:00 12/14/24 05:31 1 STRIP Insulin Human Regular FOLLOW SLIDING SCALE Q6HR SC 11/25/24 18:00 12/14/24 05:33 2 UNITS Dextrose 50 ml UD IV 11/25/24 17:15 Atorvastatin Calcium 40 mg HS PO 11/26/24 22:00 12/13/24 22:33 40 MG Metoprolol Tartrate 1.25 mg Q6HPRN PRN IV 11/28/24 18:30 12/12/24 11:10 1.25 MG Epoetin Rolando-epbx 4,000 unit MWF SC 12/01/24 14:00 UNV Enteral Nutritional Formula 1,000 ml 40ML/HR NG 12/02/24 18:00 12/13/24 06:15 1,000 ML Fat Emulsion Intravenous 150 ml/Sodium Chloride 40 meq/ Potassium Chloride 20 meq/ Multivitamins 10 ml/Chromium/ Copper/Manganese/ Zinc 1 ml/Amino Acids/Dextrose/ Purified Water 1,431 ml @ 59 mls/hr [id number] IV 12/03/24 22:00 12/04/24 21:59 Cancel Ipratropium [place] 0.5 mg Q4HR NEB 12/05/24 01:00 12/14/24 09:53 0.5 MG Epoetin Rolando-epbx 6,000 unit MWF@2100 [place] 12/08/24 21:00 12/12/24 21:25 6,000 UNIT Amino Acids 0 ml @ 0 mls/hr PER PHARMACY IV 12/07/24 22:00 Amino Acids/ Electrolytes/ Dextrose 1,000 ml @ 41 mls/hr DAILY@2200 IV 12/07/24 22:00 12/11/24 20:35 41 MLS/HR Albumin Human 100 ml @ 100 mls/hr Q1HP PRN IV 12/08/24 10:15 12/08/24 10:29 100 MLS/HR Acetaminophen 1,000 mg Q8H PRN IV 12/08/24 17:15 12/13/24 11:11 1,000 MG Enteral Nutritional Formula 240 ml Q4HR PO 12/11/24 11:30 12/13/24 10:00 240 ML Metoprolol Tartrate 25 mg BID PO 12/12/24 22:00 Hold Norepinephrine Bitartrate 250 ml @ 3.75 mls/hr Q24H IV 12/12/24 13:30 12/14/24 09:36 33.75 MLS/HR Apixaban 2.5 mg BID PO 12/12/24 22:00 12/13/24 22:33 2.5 MG Phenylephrine HCl 250 ml @ 30 mls/hr Q8H20M IV 12/12/24 16:00 Vancomycin HCl 0 ml @ 0 mls/hr UD IV 12/12/24 17:15 Piperacillin Sod/ Tazobactam Sod 50 ml @ 12.5 mls/hr Q8H IV 12/12/24 18:00 12/14/24 09:54 12.5 MLS/HR Bumetanide 1 mg BIDD IV 12/13/24 10:00 12/14/24 05:52 1 MG Midazolam HCl 50 ml @ 1 mls/hr Q24H IV 12/13/24 11:00 12/13/24 19:31 2 MLS/HR Fentanyl Citrate 250 ml @ 2.5 mls/hr Q24H IV 12/13/24 11:00 12/13/24 11:00 2.5 MLS/HR Laboratory Results Laboratory Tests 12/14/24 03:00 Chemistry Test 12/14/24 03:00 Albumin 3.4 g/dL (3.2-4.8) Calcium Level 8.5 mg/dL (8.7-10.4) L Magnesium Level 2.3 mg/dL (1.6-2.6) Phosphorus Level 5.1 mg/dL (2.4-5.1) Total Protein 6.0 g/dL (5.7-8.2) LFT Test 12/14/24 03:00 Alanine Aminotransferase (ALT) 17 U/L (7-40) Alkaline Phosphatase 125 U/L (46-116) H Aspartate Amino Transferase (AST) 40 U/L (13-40) Total Bilirubin 1.1 mg/dL (0.2-1.0) H Urinalysis Test 11/23/24 05:50 11/25/24 09:23 Urine Amorphous Crystals Few /hpf (None Seen) Urine Color Light-brown (Yellow) Urine Clarity Turbid (Clear) H Urine pH 8.5 (5.0-9.0) Urine Specific [place] 1.011 (1.001-1.035) Urine Protein 3+ (Negative) H Urine Ketones Trace (Negative) Urine Blood 3+ /uL (Negative) H Urine Nitrite Negative (Negative) Urine Bilirubin Negative (Negative) Urine Urobilinogen Normal mg/dL (Negative) Urine Leukocyte Esterase 3+ /uL (Negative) Urine RBC 2271 /hpf (0 - 3) Urine WBC Clumps Present /hpf (None Seen) Urine Microscopic WBC 312 /HPF (0-3) H Urine Squamous Epithelial Cells None seen /hpf (<5) Urine Bacteria None seen /hpf (None Seen) Urine Glucose Trace mg/dL (Normal) Blood Gas Results Test 12/13/24 12:12 12/14/24 05:50 Arterial Blood pH 7.481 (7.350-7.450) 7.425 (7.350-7.450) FiO2 % 100.0 30.0 Microbiology Microbiology Date/Time Source Procedure Growth Status 12/13/24 11:19 Bronchial Brushings Gram Stain - Final Resulted 12/13/24 11:19 Bronchial Brushings Respiratory Culture - Preliminary Resulted 12/12/24 16:06 Blood Blood Culture - Preliminary Resulted 12/12/24 12:30 Nose MRSA Screen - Final Complete 11/25/24 09:23 Urine - Midstream Clean Catch Urine Culture - Final Complete Assessment/Plan Assessment/Plan Atrial fibrillation with a rapid ventricular response, currently sinus rhythm Severe anemia status post PRBC transfusions Acute right MCA territory CVA NSTEMI, likely type 2 secondary to above Acute hypoxic respiratory failure, ?Aspiration pneumonia ?Sepsis Mild tricuspid regurgitation End-stage renal disease on hemodialysis History of colon cancer status post colectomy and colostomy COPD Plan/Recommendations (Dr. Pantoja): * Transthoracic echocardiogram reveals EF 55% * [id number] VASc score: 5 points, HAS-BLED score: 4 points * Held Eliquis given low H&H. Reconsult GI. SCD. * Antiarrhythmic agent, amiodarone gt 0.25mcg * Beta-freedom for rate control * Monitor and replete electrolytes as needed, keep potassium greater than four and magnesium greater than two * Close Cardiac surveillance The patient was initially seen by the cardiology team on 11/27/2024 when he was noted to go into atrial fibrillation with a rapid ventricular response. At that time, medical management was done and the patient converted into a normal sinus rhythm. Cardiology had since signed off. Today, the patient was noted to go back into an atrial fibrillation with rapid ventricular response rhythm. A twelve lead electrocardiogram was obtained and confirmed rhythm. At the time of assessment, the patient was noted to have coarse breath sounds and increased work of breathing and SpO2 82% on room air. The patient was placed on a high- flow nasal cannula and transferred down to the intensive care unit. Amiodarone IV bolus was ordered followed by the amiodarone IV drip protocol. Patient also noted to have an elevated temperature and elevated WBCs today. Primary team suspecting possible aspiration pneumonia. Recommend to treat the underlying cause to improve heart rate. Continue with close cardiac surveillance. This medical document was created using an electronic medical record system with voice recognition software and computerized dictation system. Although this document has been carefully reviewed, there might still be some phonetic and typographical errors. Occasional wrong-word or ``sound-alike substitutions may have occurred due to the inherent limitations of voice recognition software. These areas are purely typographical due to imperfections of the software programs and do not reflect any compromise in the patient's medical care. Please read the chart carefully and recognize, using context, where these substitutions have occurred. Plan discussed with: Other (Bedside RN) Plan discussed with: Patient, Other (RN) Date of Service: Dec 14, 2024 Billing Provider: NIKKO PANTOJA MD Common Visit Codes: CONSULT ONLY Consultation Codes: [id number] CONSULT <45MIN MILADIS DALTON [employer]PER[employer] Dec 14, 2024 11:00
--- NOTE | 2024-12-14 11:51 | DVHPN2 ---
Progress Note Date Seen: Dec 14, 2024 Has the PT tested + for MRSA If YES, has PT been informed?: No Medical Necessity Reason Pt with a Central, PICC or Fol: Yes The following are medically ne: Ashraf Catheter Subjective Patient reports: Other (intubated) Review of Systems: Deferred Objective vital signs Vital Sign Date Time Temp Pulse Resp B/P (MAP) Pulse Ox O2 Delivery O2 Flow Rate FiO2 12/14/24 09:53 73 18 123/23 (56) 100 30 12/14/24 08:00 Mechanical Ventilator+ 12/14/24 07:00 99.0 99.0 12/13/24 10:21 40.0 Total Intake and Output 12/13/24 12/13/24 12/14/24 15:00 23:00 07:00 Intake Total 599.28 ml 607.63 ml 787.64 ml Output Total 5 ml 25 ml Balance 599.28 ml 602.63 ml 762.64 ml medications Current Medications Medications Dose Ordered Sig/Delfino Route Start Time Stop Time Status Last Admin Dose Admin Amlodipine Besylate 10 mg DAILY PO 11/22/24 10:00 12/13/24 11:36 10 MG Hydralazine HCl 10 mg Q4HP PRN IV 11/23/24 09:15 12/09/24 00:11 10 MG Pantoprazole Sodium 40 mg BID IV 11/23/24 22:00 12/14/24 09:54 40 MG Sucralfate 1 gm BID PO 11/25/24 22:00 12/13/24 22:32 1 GM Diagnostic Test (Pha) 1 strip Q6HR 11/25/24 18:00 12/14/24 05:31 1 STRIP Insulin Human Regular FOLLOW SLIDING SCALE Q6HR SC 11/25/24 18:00 12/14/24 05:33 2 UNITS Dextrose 50 ml UD IV 11/25/24 17:15 Atorvastatin Calcium 40 mg HS PO 11/26/24 22:00 12/13/24 22:33 40 MG Metoprolol Tartrate 1.25 mg Q6HPRN PRN IV 11/28/24 18:30 12/12/24 11:10 1.25 MG Epoetin Rolando-epbx 4,000 unit MWF SC 12/01/24 14:00 UNV Enteral Nutritional Formula 1,000 ml 40ML/HR NG 12/02/24 18:00 12/13/24 06:15 1,000 ML Fat Emulsion Intravenous 150 ml/Sodium Chloride 40 meq/ Potassium Chloride 20 meq/ Multivitamins 10 ml/Chromium/ Copper/Manganese/ Zinc 1 ml/Amino Acids/Dextrose/ Purified Water 1,431 ml @ 59 mls/hr [id number] IV 12/03/24 22:00 12/04/24 21:59 Cancel Ipratropium [place] 0.5 mg Q4HR NEB 12/05/24 01:00 12/14/24 09:53 0.5 MG Epoetin Rolando-epbx 6,000 unit MWF@2100 [place] 12/08/24 21:00 12/12/24 21:25 6,000 UNIT Amino Acids 0 ml @ 0 mls/hr PER PHARMACY IV 12/07/24 22:00 Amino Acids/ Electrolytes/ Dextrose 1,000 ml @ 41 mls/hr DAILY@2200 IV 12/07/24 22:00 12/11/24 20:35 41 MLS/HR Albumin Human 100 ml @ 100 mls/hr Q1HP PRN IV 12/08/24 10:15 12/08/24 10:29 100 MLS/HR Acetaminophen 1,000 mg Q8H PRN IV 12/08/24 17:15 12/13/24 11:11 1,000 MG Enteral Nutritional Formula 240 ml Q4HR PO 12/11/24 11:30 12/13/24 10:00 240 ML Metoprolol Tartrate 25 mg BID PO 12/12/24 22:00 Hold Norepinephrine Bitartrate 250 ml @ 3.75 mls/hr Q24H IV 12/12/24 13:30 12/14/24 09:36 33.75 MLS/HR Apixaban 2.5 mg BID PO 12/12/24 22:00 12/13/24 22:33 2.5 MG Phenylephrine HCl 250 ml @ 30 mls/hr Q8H20M IV 12/12/24 16:00 Vancomycin HCl 0 ml @ 0 mls/hr UD IV 12/12/24 17:15 Piperacillin Sod/ Tazobactam Sod 50 ml @ 12.5 mls/hr Q8H IV 12/12/24 18:00 12/14/24 09:54 12.5 MLS/HR Bumetanide 1 mg BIDD IV 12/13/24 10:00 12/14/24 05:52 1 MG Midazolam HCl 50 ml @ 1 mls/hr Q24H IV 12/13/24 11:00 12/13/24 19:31 2 MLS/HR Fentanyl Citrate 250 ml @ 2.5 mls/hr Q24H IV 12/13/24 11:00 12/13/24 11:00 2.5 MLS/HR Examination: CVS:Abnormal, MSK:Abnormal, NEURO:Abnormal laboratory and microbiology Laboratory Tests 12/14/24 03:00 Test 12/14/24 03:00 Range/Units Serum Glucose 137 H 74-106 mg/dL Microbiology Date/Time Source Procedure Growth Status 12/13/24 11:19 Bronchial Brushings Gram Stain - Final Resulted 12/13/24 11:19 Bronchial Brushings Respiratory Culture - Preliminary Resulted 12/12/24 16:06 Blood Blood Culture - Preliminary Resulted 12/12/24 12:30 Nose MRSA Screen - Final Complete 11/25/24 09:23 Urine - Midstream Clean Catch Urine Culture - Final Complete Problem List/Assessment/Plan Problem List/Assessment/Plan ESRD on HD- CVA fronto parietal Status post PEG tube Acute hypoxic respiratory failure pneumonia, atelectasis--currently intubated 12/13 AFib with RVR Status post PEG tube HTN hx of COPD Anemia s/p PRBC transfusion recs HD today Renally dose antibiotics to GFR Levophed Plan discussed with: Other Dietary Evaluation Review Comments: 1) Nepro Carbsteady 240ml TID 2) Consider renal standard diet 3) Monitor PO intake, lab values, weight trend, and I/O Expected Outcomes/Goals: To meet >75% estimated needs lab values to improve Fu 3-5 days CC Plasma Assessment Blood Product Administration S: 15:15 GERMAN WATERMAN MD Dec 14, 2024 11:51
--- NOTE | 2024-12-14 14:27 | DVHPN2 ---
Progress Note - Dictate Date Seen: Dec 14, 2024 Has the PT tested + for MRSA If YES, has PT been informed?: No Medical Necessity Reason Pt with a Central, PICC or Fol: Yes The following are medically ne: Ashraf Catheter vital signs Vital Sign Date Time Temp Pulse Resp B/P (MAP) Pulse Ox O2 Delivery O2 Flow Rate FiO2 12/14/24 12:05 76 20 122/29 (60) 100 30 12/14/24 08:00 Mechanical Ventilator+ 12/14/24 07:00 99.0 99.0 12/13/24 10:21 40.0 Total Intake and Output 12/13/24 12/13/24 12/14/24 15:00 23:00 07:00 Intake Total 599.28 ml 607.63 ml 787.64 ml Output Total 5 ml 25 ml Balance 599.28 ml 602.63 ml 762.64 ml medications Current Medications Medications Dose Ordered Sig/Delfino Route Start Time Stop Time Status Last Admin Dose Admin Amlodipine Besylate 10 mg DAILY PO 11/22/24 10:00 12/13/24 11:36 10 MG Hydralazine HCl 10 mg Q4HP PRN IV 11/23/24 09:15 12/09/24 00:11 10 MG Pantoprazole Sodium 40 mg BID IV 11/23/24 22:00 12/14/24 09:54 40 MG Sucralfate 1 gm BID PO 11/25/24 22:00 12/13/24 22:32 1 GM Diagnostic Test (Pha) 1 strip Q6HR 11/25/24 18:00 12/14/24 05:31 1 STRIP Insulin Human Regular FOLLOW SLIDING SCALE Q6HR SC 11/25/24 18:00 12/14/24 05:33 2 UNITS Dextrose 50 ml UD IV 11/25/24 17:15 Atorvastatin Calcium 40 mg HS PO 11/26/24 22:00 12/13/24 22:33 40 MG Metoprolol Tartrate 1.25 mg Q6HPRN PRN IV 11/28/24 18:30 12/12/24 11:10 1.25 MG Epoetin Rolando-epbx 4,000 unit MWF SC 12/01/24 14:00 UNV Enteral Nutritional Formula 1,000 ml 40ML/HR NG 12/02/24 18:00 12/13/24 06:15 1,000 ML Fat Emulsion Intravenous 150 ml/Sodium Chloride 40 meq/ Potassium Chloride 20 meq/ Multivitamins 10 ml/Chromium/ Copper/Manganese/ Zinc 1 ml/Amino Acids/Dextrose/ Purified Water 1,431 ml @ 59 mls/hr [id number] IV 12/03/24 22:00 12/04/24 21:59 Cancel Ipratropium [place] 0.5 mg Q4HR NEB 12/05/24 01:00 12/14/24 09:53 0.5 MG Epoetin Rolando-epbx 6,000 unit MWF@2100 SC 12/08/24 21:00 12/12/24 21:25 6,000 UNIT Amino Acids 0 ml @ 0 mls/hr PER PHARMACY IV 12/07/24 22:00 Amino Acids/ Electrolytes/ Dextrose 1,000 ml @ 41 mls/hr DAILY@2200 IV 12/07/24 22:00 12/11/24 20:35 41 MLS/HR Albumin Human 100 ml @ 100 mls/hr Q1HP PRN IV 12/08/24 10:15 12/08/24 10:29 100 MLS/HR Acetaminophen 1,000 mg Q8H PRN IV 12/08/24 17:15 12/13/24 11:11 1,000 MG Enteral Nutritional Formula 240 ml Q4HR PO 12/11/24 11:30 12/13/24 10:00 240 ML Metoprolol Tartrate 25 mg BID PO 12/12/24 22:00 Hold Norepinephrine Bitartrate 250 ml @ 3.75 mls/hr Q24H IV 12/12/24 13:30 12/14/24 09:36 33.75 MLS/HR Apixaban 2.5 mg BID PO 12/12/24 22:00 12/13/24 22:33 2.5 MG Phenylephrine HCl 250 ml @ 30 mls/hr Q8H20M IV 12/12/24 16:00 Vancomycin HCl 0 ml @ 0 mls/hr UD IV 12/12/24 17:15 Piperacillin Sod/ Tazobactam Sod 50 ml @ 12.5 mls/hr Q8H IV 12/12/24 18:00 12/14/24 09:54 12.5 MLS/HR Bumetanide 1 mg BIDD IV 12/13/24 10:00 12/14/24 05:52 1 MG Midazolam HCl 50 ml @ 1 mls/hr Q24H IV 12/13/24 11:00 12/13/24 19:31 2 MLS/HR Fentanyl Citrate 250 ml @ 2.5 mls/hr Q24H IV 12/13/24 11:00 12/13/24 11:00 2.5 MLS/HR laboratory and microbiology Laboratory Tests 12/14/24 03:00 Test 12/14/24 03:00 Range/Units Serum Glucose 137 H 74-106 mg/dL Assessment/Plan Acute hypoxemic respiratory failure Noninvasive ventilation Respiratory alkalosis pleural effusion atelectases pneumonia End-stage renal disease hemodialysis Acute right MCA stroke The patient is seen and examined in the ICU events on mechanical ventilation s/p intubation PEEP 7, FiO2 30% s/p bronchoscopy yesterday MRI report noted Acute infarction right middle cerebral artery distribution involving the right frontal and parietal lobes. Findings consistent with right M2 middle cerebral artery segment occlusion/thrombosis. Moderate chronic microvascular ischemic changes. Occipital scalp mass, indeterminate, measuring 6.6 x 3.0 cm. This does NOT have features of a fatty containing lesion Management plan Sedation Versed/propofol/fentanyl full ventilator asynchrony We will continue Dialysis per Nephrology with fluid removal Bronchodilators TPN for nutrition Broad-spectrum antibiotics for pneumonia Prognosis very poor Patient is full code for now family fully updated Will almost certainly require tracheostomy Critical care time 35 minutes Dietary Evaluation Review Comments: 1) Nepro Carbsteady 240ml TID 2) Consider renal standard diet 3) Monitor PO intake, lab values, weight trend, and I/O Expected Outcomes/Goals: To meet >75% estimated needs lab values to improve Fu 3-5 days Plan discussed with: Other (Rn) CC Plasma Assessment Blood Product Administration S: 15:15 TORSTEN GREEN MD Dec 14, 2024 14:26
[2024-12-14] MEDS: VANCOMYCIN 500mg/100mL 100 ML IV ONE ×2 (14:30→21:06)
--- NOTE | 2024-12-14 14:43 | DVHPN2 ---
Progress Note Date Seen: Dec 14, 2024 Has the PT tested + for MRSA If YES, has PT been informed?: No Medical Necessity Reason Pt with a Central, PICC or Fol: Yes The following are medically ne: Ashraf Catheter Objective vital signs Vital Sign Date Time Temp Pulse Resp B/P (MAP) Pulse Ox O2 Delivery O2 Flow Rate FiO2 12/14/24 14:30 74 20 133/28 (63) 100 30 12/14/24 08:00 Mechanical Ventilator+ 12/14/24 07:00 99.0 99.0 12/13/24 10:21 40.0 Total Intake and Output 12/13/24 12/13/24 12/14/24 15:00 23:00 07:00 Intake Total 599.28 ml 607.63 ml 787.64 ml Output Total 5 ml 25 ml Balance 599.28 ml 602.63 ml 762.64 ml medications Current Medications Medications Dose Ordered Sig/Delfino Route Start Time Stop Time Status Last Admin Dose Admin Amlodipine Besylate 10 mg DAILY PO 11/22/24 10:00 12/13/24 11:36 10 MG Hydralazine HCl 10 mg Q4HP PRN IV 11/23/24 09:15 12/09/24 00:11 10 MG Pantoprazole Sodium 40 mg BID IV 11/23/24 22:00 12/14/24 09:54 40 MG Sucralfate 1 gm BID PO 11/25/24 22:00 12/13/24 22:32 1 GM Diagnostic Test (Pha) 1 strip Q6HR 11/25/24 18:00 12/14/24 12:00 1 STRIP Insulin Human Regular FOLLOW SLIDING SCALE Q6HR SC 11/25/24 18:00 12/14/24 12:00 4 UNITS Dextrose 50 ml UD IV 11/25/24 17:15 Atorvastatin Calcium 40 mg HS PO 11/26/24 22:00 12/13/24 22:33 40 MG Metoprolol Tartrate 1.25 mg Q6HPRN PRN IV 11/28/24 18:30 12/12/24 11:10 1.25 MG Epoetin Rolando-epbx 4,000 unit MWF SC 12/01/24 14:00 UNV Enteral Nutritional Formula 1,000 ml 40ML/HR NG 12/02/24 18:00 12/13/24 06:15 1,000 ML Fat Emulsion Intravenous 150 ml/Sodium Chloride 40 meq/ Potassium Chloride 20 meq/ Multivitamins 10 ml/Chromium/ Copper/Manganese/ Zinc 1 ml/Amino Acids/Dextrose/ Purified Water 1,431 ml @ 59 mls/hr [id number] IV 12/03/24 22:00 12/04/24 21:59 Cancel Ipratropium [place] 0.5 mg Q4HR NEB 12/05/24 01:00 12/14/24 14:30 0.5 MG Epoetin Rolando-epbx 6,000 unit MWF@2100 SC 12/08/24 21:00 12/12/24 21:25 6,000 UNIT Amino Acids 0 ml @ 0 mls/hr PER PHARMACY IV 12/07/24 22:00 Amino Acids/ Electrolytes/ Dextrose 1,000 ml @ 41 mls/hr DAILY@2200 IV 12/07/24 22:00 12/11/24 20:35 41 MLS/HR Albumin Human 100 ml @ 100 mls/hr Q1HP PRN IV 12/08/24 10:15 12/08/24 10:29 100 MLS/HR Acetaminophen 1,000 mg Q8H PRN IV 12/08/24 17:15 12/13/24 11:11 1,000 MG Enteral Nutritional Formula 240 ml Q4HR PO 12/11/24 11:30 12/13/24 10:00 240 ML Metoprolol Tartrate 25 mg BID PO 12/12/24 22:00 Hold Norepinephrine Bitartrate 250 ml @ 3.75 mls/hr Q24H IV 12/12/24 13:30 12/14/24 09:36 33.75 MLS/HR Apixaban 2.5 mg BID PO 12/12/24 22:00 12/13/24 22:33 2.5 MG Phenylephrine HCl 250 ml @ 30 mls/hr Q8H20M IV 12/12/24 16:00 Vancomycin HCl 0 ml @ 0 mls/hr UD IV 12/12/24 17:15 Piperacillin Sod/ Tazobactam Sod 50 ml @ 12.5 mls/hr Q8H IV 12/12/24 18:00 12/14/24 09:54 12.5 MLS/HR Bumetanide 1 mg BIDD IV 12/13/24 10:00 12/14/24 05:52 1 MG Midazolam HCl 50 ml @ 1 mls/hr Q24H IV 12/13/24 11:00 12/13/24 19:31 2 MLS/HR Fentanyl Citrate 250 ml @ 2.5 mls/hr Q24H IV 12/13/24 11:00 12/14/24 11:00 5 MLS/HR laboratory and microbiology Laboratory Tests 12/14/24 03:00 Test 12/14/24 03:00 Range/Units Serum Glucose 137 H 74-106 mg/dL Microbiology Date/Time Source Procedure Growth Status 12/13/24 11:19 Bronchial Brushings Gram Stain - Final Resulted 12/13/24 11:19 Bronchial Brushings Respiratory Culture - Preliminary Resulted 12/12/24 16:06 Blood Blood Culture - Preliminary Resulted 12/12/24 12:30 Nose MRSA Screen - Final Complete 11/25/24 09:23 Urine - Midstream Clean Catch Urine Culture - Final Complete Problem List/Assessment/Plan Problem List/Assessment/Plan AFEBRILE VSS ABD SOFT PEG TUBE IN PLACE NO COMPLICATION TRANSFERRED TO ICU DUE TO RESPIRATORY ISSUES CONTINUE CLOSE OBSERVATION Plan discussed with: Patient, Other Dietary Evaluation Review Comments: 1) Nepro Carbsteady 240ml TID 2) Consider renal standard diet 3) Monitor PO intake, lab values, weight trend, and I/O Expected Outcomes/Goals: To meet >75% estimated needs lab values to improve Fu 3-5 days CC Plasma Assessment Blood Product Administration S: 15:15 ZAHRAA NATION MD Dec 14, 2024 14:43
--- NOTE | 2024-12-14 16:22 | DVHPN2 ---
Progress Note - Dictate Date Seen: Dec 14, 2024 Has the PT tested + for MRSA If YES, has PT been informed?: No Medical Necessity Reason Pt with a Central, PICC or Fol: Yes The following are medically ne: Ashraf Catheter Subjective 78-year-old male with a history of colon cancer (s/p partial colectomy, chemotherapy, and colostomy), ESRD on hemodialysis, COPD, hypertension, dyslipidemia, and recent acute right MCA infarction with resultant left-sided hemiparesis and altered mental status. Patient developed respiratory compromise and failure requiring intubation and transfer to ICU Peg tube is functioning well and patient is tolerating G-tube feedings with Nepro at 30 per hour vital signs Vital Sign Date Time Temp Pulse Resp B/P (MAP) Pulse Ox O2 Delivery O2 Flow Rate FiO2 12/14/24 15:53 76 20 134/29 (64) 100 30 12/14/24 12:00 98.8 98.8 12/14/24 08:00 Mechanical Ventilator+ 12/13/24 10:21 40.0 Total Intake and Output 12/13/24 12/13/24 12/14/24 14:59 22:59 06:59 Intake Total 599.78 ml 619.71 ml 787.64 ml Output Total 5 ml 25 ml Balance 599.78 ml 614.71 ml 762.64 ml medications Current Medications Medications Dose Ordered Sig/Delfino Route Start Time Stop Time Status Last Admin Dose Admin Amlodipine Besylate 10 mg DAILY PO 11/22/24 10:00 12/13/24 11:36 10 MG Hydralazine HCl 10 mg Q4HP PRN IV 11/23/24 09:15 12/09/24 00:11 10 MG Pantoprazole Sodium 40 mg BID IV 11/23/24 22:00 12/14/24 09:54 40 MG Sucralfate 1 gm BID PO 11/25/24 22:00 12/13/24 22:32 1 GM Diagnostic Test (Pha) 1 strip Q6HR 11/25/24 18:00 12/14/24 12:00 1 STRIP Insulin Human Regular FOLLOW SLIDING SCALE Q6HR SC 11/25/24 18:00 12/14/24 12:00 4 UNITS Dextrose 50 ml UD IV 11/25/24 17:15 Atorvastatin Calcium 40 mg HS PO 11/26/24 22:00 12/13/24 22:33 40 MG Metoprolol Tartrate 1.25 mg Q6HPRN PRN IV 11/28/24 18:30 12/12/24 11:10 1.25 MG Epoetin Rolando-epbx 4,000 unit MWF [place] 12/01/24 14:00 UNV Enteral Nutritional Formula 1,000 ml 40ML/HR NG 12/02/24 18:00 12/13/24 06:15 1,000 ML Fat Emulsion Intravenous 150 ml/Sodium Chloride 40 meq/ Potassium Chloride 20 meq/ Multivitamins 10 ml/Chromium/ Copper/Manganese/ Zinc 1 ml/Amino Acids/Dextrose/ Purified Water 1,431 ml @ 59 mls/hr [id number] IV 12/03/24 22:00 12/04/24 21:59 Cancel Ipratropium [place] 0.5 mg Q4HR NEB 12/05/24 01:00 12/14/24 14:30 0.5 MG Epoetin Rolando-epbx 6,000 unit MWF@2100 [place] 12/08/24 21:00 12/12/24 21:25 6,000 UNIT Amino Acids 0 ml @ 0 mls/hr PER PHARMACY IV 12/07/24 22:00 Amino Acids/ Electrolytes/ Dextrose 1,000 ml @ 41 mls/hr DAILY@2200 IV 12/07/24 22:00 12/11/24 20:35 41 MLS/HR Albumin Human 100 ml @ 100 mls/hr Q1HP PRN IV 12/08/24 10:15 12/08/24 10:29 100 MLS/HR Acetaminophen 1,000 mg Q8H PRN IV 12/08/24 17:15 12/13/24 11:11 1,000 MG Enteral Nutritional Formula 240 ml Q4HR PO 12/11/24 11:30 12/13/24 10:00 240 ML Metoprolol Tartrate 25 mg BID PO 12/12/24 22:00 Hold Norepinephrine Bitartrate 250 ml @ 3.75 mls/hr Q24H IV 12/12/24 13:30 12/14/24 09:36 33.75 MLS/HR Apixaban 2.5 mg BID PO 12/12/24 22:00 12/13/24 22:33 2.5 MG Phenylephrine HCl 250 ml @ 30 mls/hr Q8H20M IV 12/12/24 16:00 Vancomycin HCl 0 ml @ 0 mls/hr UD IV 12/12/24 17:15 Piperacillin Sod/ Tazobactam Sod 50 ml @ 12.5 mls/hr Q8H IV 12/12/24 18:00 12/14/24 09:54 12.5 MLS/HR Bumetanide 1 mg BIDD IV 12/13/24 10:00 12/14/24 05:52 1 MG Midazolam HCl 50 ml @ 1 mls/hr Q24H IV 12/13/24 11:00 12/13/24 19:31 2 MLS/HR Fentanyl Citrate 250 ml @ 2.5 mls/hr Q24H IV 12/13/24 11:00 12/14/24 11:00 5 MLS/HR objective * General: Alert, oriented more awake * Abdomen: Soft, mildly tender LUQ, non-distended, bowel sounds present. Colostomy bag intact, minimal output, midline scar Epigastric to L quadrant gastrostomy tube site appears to be clean; dressing is dry * Cardiovascular: Regular rhythm, mild tachycardia. * Pulmonary: Clear to auscultation with bibasilar crackles. * Other: Stable. laboratory and microbiology Laboratory Tests 12/14/24 03:00 Test 12/14/24 03:00 Range/Units Serum Glucose 137 H 74-106 mg/dL Problems(with codes): (1) Generalized weakness (2) ESRD (end stage renal disease) on dialysis (3) Acute upper GI bleed (4) History of colon cancer (5) Anemia (6) Symptomatic anemia (7) End-stage renal disease on hemodialysis (8) Severe anemia Prognosis Plan Continue IV Protonix 40 mg daily Advance tube feedings to goal rate as tolerated IV Reglan 5 mg q.8 hours as needed for increased gastric residuals Continue to monitor labs IV antibiotics Pulmonary support Dialysis as per schedule Dietary Evaluation Review Comments: 1) Nepro Carbsteady 240ml TID 2) Consider renal standard diet 3) Monitor PO intake, lab values, weight trend, and I/O Expected Outcomes/Goals: To meet >75% estimated needs lab values to improve Fu 3-5 days Plan discussed with: Patient CC Plasma Assessment Blood Product Administration S: 15:15 ENID NATION MD Dec 14, 2024 16:22
[2024-12-14] MEDS: SODIUM CHL 0.9% 1000 ML BAG XX ONE (18:00)
--- NOTE | 2024-12-14 18:06 | DVHPN2 ---
Progress Note - Dictate Date Seen: Dec 14, 2024 Has the PT tested + for MRSA If YES, has PT been informed?: No Medical Necessity Reason Pt with a Central, PICC or Fol: Yes The following are medically ne: Ashraf Catheter Subjective Mr. Akbar is a 78 years old gentleman with a history of hypertension, dyslipidemia, COPD, end-stage kidney failure on hemodialysis, colon cancer status post colostomy, he was brought to the [facility] on 11/21/2024 with a chief company of general weakness and dark stool. He was transferred to ICU on 12/12/2024 with respiratory failure, hypoxia I have seen and examined the patient. I have talked to his nurse, He was intubated on 12/13/2024 for respiratory distress. He is responsive to touch stimuli, Stool occult blood, 11/21/2024: Positive Urinalysis, 11/23/2024: UTI UDS, 11/23/2024: Negative ABG, PO2: 49.8 WBC/HB/PLT/MCV, 11/21/2024: 12.3/5.8/267/94.5, 11/25/2024: 11.8/9.9/275/93.6, 12/12/2024: 24.6/7.9/191/89.8 PT/INR/PTT, 11/21/2024: 13/1.25/41.6 BUN/CR, 11/26/2024: 53/6.41, 12/12/2024: 105/6.27 lactic acid, 12/12/24: 5.1, 2.8 HGB A1c, 11/21/2024: <3.8 Lactic acid, 12/12/2024: 5.1, 2.7 TBI/AST/ALT/AP, 12/02/2024: 0.5/40/13/153, 12/06/2024, 0.8/66/45/172, 12/11/2024: 2.2/36/22/133, 12/12/2024: 1.5/178/56/158 TG/HDL/LDL/HDL, 11/27/2024: 203/156/93/21 Vitamin B12, 11/21/2024: 452 TSH, 11/21/2024: 2.27 EKG, 10/3124: AFib Carotid Doppler, 11/26/2024: 1. No hemodynamically significant stenosis noted in the right carotid system. Approximately 50-69 % focal stenosis in the mid right internal carotid artery. 2. No hemodynamically significant stenosis noted in the left carotid system. 3. The vertebral arteries were not visualized. Echocardiogram, 11/27/2024: Sinus rhythm. Concentric LVH with left atrial enlargement and aortic root enlargement. Dilation of the sinuses of Valsalva. Moderate mitral annular calcification of the base of the posterior mitral leaflet. The aortic and tricuspid appear to be structurally normal. Left ventricular systolic performance appears to be preserved. EF is about 55%. There is impaired diastolic relaxation. Normal RV function. There is mild aortic insufficiency. Mild tricuspid regurgitation. No pericardial effusion masses or vegetations Chest x-ray, 12/12/24: Mild cardiomegaly and mild pulmonary vascular congestion. Small to moderate left pleural effusion and left basilar consolidation likely atelectasis though pneumonia could contribute to this appearance. Chest x-ray, 12/13/2024: ET in the mid thoracic trachea. Left basilar consolidation similar to prior.. CT head, 11/09/2024: Acute to subacute infarction of the right frontoparietal lobe with thrombus in the right middle cerebral artery M2 segment. Recommend neurology consultation. Moderate chronic microvascular ischemic changes. MRI head, 11/26/2024: Acute infarction right middle cerebral artery distribution involving the right frontal and parietal lobes. Findings consistent with right M2 middle cerebral artery segment occlusion/thrombosis. Moderate chronic microvascular ischemic changes. EGD, 11/25/2024: 1. Minimal gastroduodenitis 2. Otherwise normal examination up to the 2nd and 3rd part of the duodenal with no fresh or old blood in the upper GI tract vital signs Vital Sign Date Time Temp Pulse Resp B/P (MAP) Pulse Ox O2 Delivery O2 Flow Rate FiO2 12/14/24 17:30 77 19 132/29 (63) 100 12/14/24 16:00 30 12/14/24 16:00 99.9 99.9 12/14/24 08:00 Mechanical Ventilator+ 12/13/24 10:21 40.0 Total Intake and Output 12/13/24 12/13/24 12/14/24 15:00 23:00 07:00 Intake Total 599.28 ml 607.63 ml 787.64 ml Output Total 5 ml 25 ml Balance 599.28 ml 602.63 ml 762.64 ml medications Current Medications Medications Dose Ordered Sig/Delfino Route Start Time Stop Time Status Last Admin Dose Admin Amlodipine Besylate 10 mg DAILY PO 11/22/24 10:00 12/13/24 11:36 10 MG Hydralazine HCl 10 mg Q4HP PRN IV 11/23/24 09:15 12/09/24 00:11 10 MG Pantoprazole Sodium 40 mg BID IV 11/23/24 22:00 12/14/24 09:54 40 MG Sucralfate 1 gm BID PO 11/25/24 22:00 12/13/24 22:32 1 GM Diagnostic Test (Pha) 1 strip Q6HR 11/25/24 18:00 12/14/24 12:00 1 STRIP Insulin Human Regular FOLLOW SLIDING SCALE Q6HR SC 11/25/24 18:00 12/14/24 12:00 4 UNITS Dextrose 50 ml UD IV 11/25/24 17:15 Atorvastatin Calcium 40 mg HS PO 11/26/24 22:00 12/13/24 22:33 40 MG Metoprolol Tartrate 1.25 mg Q6HPRN PRN IV 11/28/24 18:30 12/12/24 11:10 1.25 MG Epoetin Rolando-epbx 4,000 unit MWF [place] 12/01/24 14:00 UNV Enteral Nutritional Formula 1,000 ml 40ML/HR NG 12/02/24 18:00 12/13/24 06:15 1,000 ML Fat Emulsion Intravenous 150 ml/Sodium Chloride 40 meq/ Potassium Chloride 20 meq/ Multivitamins 10 ml/Chromium/ Copper/Manganese/ Zinc 1 ml/Amino Acids/Dextrose/ Purified Water 1,431 ml @ 59 mls/hr [id number] IV 12/03/24 22:00 12/04/24 21:59 Cancel Ipratropium [place] 0.5 mg Q4HR NEB 12/05/24 01:00 12/14/24 14:30 0.5 MG Epoetin Rolando-epbx 6,000 unit MWF@2100 [place] 12/08/24 21:00 12/12/24 21:25 6,000 UNIT Amino Acids 0 ml @ 0 mls/hr PER PHARMACY IV 12/07/24 22:00 Amino Acids/ Electrolytes/ Dextrose 1,000 ml @ 41 mls/hr DAILY@2200 IV 12/07/24 22:00 12/14/24 21:59 12/11/24 20:35 41 MLS/HR Albumin Human 100 ml @ 100 mls/hr Q1HP PRN IV 12/08/24 10:15 12/08/24 10:29 100 MLS/HR Acetaminophen 1,000 mg Q8H PRN IV 12/08/24 17:15 12/13/24 11:11 1,000 MG Enteral Nutritional Formula 240 ml Q4HR PO 12/11/24 11:30 12/13/24 10:00 240 ML Metoprolol Tartrate 25 mg BID PO 12/12/24 22:00 Hold Apixaban 2.5 mg BID PO 12/12/24 22:00 12/13/24 22:33 2.5 MG Phenylephrine HCl 250 ml @ 30 mls/hr Q8H20M IV 12/12/24 16:00 Vancomycin HCl 0 ml @ 0 mls/hr UD IV 12/12/24 17:15 Piperacillin Sod/ Tazobactam Sod 50 ml @ 12.5 mls/hr Q8H IV 12/12/24 18:00 12/14/24 09:54 12.5 MLS/HR Bumetanide 1 mg BIDD IV 12/13/24 10:00 12/14/24 05:52 1 MG Midazolam HCl 50 ml @ 1 mls/hr Q24H IV 12/13/24 11:00 12/13/24 19:31 2 MLS/HR Fentanyl Citrate 250 ml @ 2.5 mls/hr Q24H IV 12/13/24 11:00 12/14/24 11:00 5 MLS/HR Norepinephrine Bitartrate 32 mg/ Sodium Chloride 250 ml @ 0.938 mls/ hr Q24H IV 12/14/24 18:00 objective The patient is well-nourished and well-developed with no distress. The patient is intubated MENTAL STATUS: Subjective CRANIAL NERVES: Pupils are equal, round and reactive.There are corneal reflexes and doll's eyes phenomenon. No signs of facial weakness. There are gagging or coughing reflexes SENSATION: Responsive to touch MOTOR: Normal tone in the upper and lower extremity. Normal muscle bulk. No fasciculations. No spontaneous movement. REFLEXES: Deep tendon reflexes are symmetrical. Upgoing toes bilaterally CEREBELLAR/COORDINATION: Deferred GAIT/STATION: deferred. laboratory and microbiology Laboratory Tests 12/14/24 03:00 Test 12/14/24 03:00 Range/Units Serum Glucose 137 H 74-106 mg/dL Problem List Acute respiratory distress in the evening on 12/04/2028 Acute right MCA territory stroke with acute left hemiparesis Atrial fibrillation Altered mental status Secondary to acute stroke Metabolic encephalopathy Rule out seizure activity End-stage kidney failure Acute neck pain, etiology unclear Mass GI bleeding status post RBC transfusion Elevated liver function tests History of colon cancer Gait disturbance, maybe secondary to drug effects Assessment/Plan Monitoring Supportive treatment ICU care Stabilize vitals Respiratory support/vent management Oxygen IV antibiotics Eliquis 2.5 mg b.i.d. Lipitor 40 mg daily Carafate 1 g b.i.d. Protonix 40 mg b.i.d. Nephrology on case/hemodialysis GI specialist on case More recommendation per clinical course This medical document was created using an electronic medical record system with [employer] dictation system. Although this document has been carefully reviewed, there may still be some phonetic and typographical errors. These areas are purely typographical due to imperfections of the software programs, and do not reflect any compromise in the patient's medical care. Prognosis Guarded Dietary Evaluation Review Comments: 1) Nepro Carbsteady 240ml TID 2) Consider renal standard diet 3) Monitor PO intake, lab values, weight trend, and I/O Expected Outcomes/Goals: To meet >75% estimated needs lab values to improve Fu 3-5 days Plan discussed with: Other Critical Care Time(min): 35 CC Plasma Assessment Blood Product Administration S: 15:15 PATSY SALGADO MD Dec 14, 2024 18:06
[2024-12-14] MEDS: VANCOMYCIN 500MG/100ML D5W 100 ML IV ONE (20:50)
[2024-12-14] MEDS: EPOETIN ALFA-EPBX 10,000 UNIT/1ML VIAL SC ONE (21:09)
[2024-12-14] MEDS: NOREPINEPHRINE BITARTRATE 32 MG in SODIUM CHL 0.9% 218 ML IV SCH (21:48)
--- NOTE | 2024-12-14 23:41 | DVHPN2 ---
Consult Progress Note Subjective Other Systems: Patient was seen and evaluated in follow p in the ICU. Patient was intubated yesterday afternoon for airway protection. Patient is in sinus rhythm on the night monitor. Patient remains on an Amiodarone drip at 0.25mg. Patient is currently on Levophed drip. No cardiac events reported. H&H decreasing. Chest x-ray showed left basilar consolidation similar to prior.. Objective vital signs Vital Sign Date Time Temp Pulse Resp B/P (MAP) Pulse Ox O2 Delivery O2 Flow Rate FiO2 12/14/24 12:05 76 20 122/29 (60) 100 30 12/14/24 08:00 Mechanical Ventilator+ 12/14/24 07:00 99.0 99.0 12/13/24 10:21 40.0 Total Intake and Output 12/13/24 12/13/24 12/14/24 15:00 23:00 07:00 Intake Total 599.28 ml 607.63 ml 787.64 ml Output Total 5 ml 25 ml Balance 599.28 ml 602.63 ml 762.64 ml medications Current Medications Medications Dose Ordered Sig/Delfino Route Start Time Stop Time Status Last Admin Dose Admin Amlodipine Besylate 10 mg DAILY PO 11/22/24 10:00 12/13/24 11:36 10 MG Hydralazine HCl 10 mg Q4HP PRN IV 11/23/24 09:15 12/09/24 00:11 10 MG Pantoprazole Sodium 40 mg BID IV 11/23/24 22:00 12/14/24 09:54 40 MG Sucralfate 1 gm BID PO 11/25/24 22:00 12/13/24 22:32 1 GM Diagnostic Test (Pha) 1 strip Q6HR 11/25/24 18:00 12/14/24 05:31 1 STRIP Insulin Human Regular FOLLOW SLIDING SCALE Q6HR SC 11/25/24 18:00 12/14/24 05:33 2 UNITS Dextrose 50 ml UD IV 11/25/24 17:15 Atorvastatin Calcium 40 mg HS PO 11/26/24 22:00 12/13/24 22:33 40 MG Metoprolol Tartrate 1.25 mg Q6HPRN PRN IV 11/28/24 18:30 12/12/24 11:10 1.25 MG Epoetin Rolando-epbx 4,000 unit MW HI 12/01/24 14:00 UNV Enteral Nutritional Formula 1,000 ml 40ML/HR NG 12/02/24 18:00 12/13/24 06:15 1,000 ML Fat Emulsion Intravenous 150 ml/Sodium Chloride 40 meq/ Potassium Chloride 20 meq/ Multivitamins 10 ml/Chromium/ Copper/Manganese/ Zinc 1 ml/Amino Acids/Dextrose/ Purified Water 1,431 ml @ 59 mls/hr [id number] IV 12/03/24 22:00 12/04/24 21:59 Cancel Ipratropium [place] 0.5 mg Q4HR NEB 12/05/24 01:00 12/14/24 09:53 0.5 MG Epoetin Rolando-epbx 6,000 unit MWF@2100 HI 12/08/24 21:00 12/12/24 21:25 6,000 UNIT Amino Acids 0 ml @ 0 mls/hr PER PHARMACY IV 12/07/24 22:00 Amino Acids/ Electrolytes/ Dextrose 1,000 ml @ 41 mls/hr DAILY@2200 IV 12/07/24 22:00 12/11/24 20:35 41 MLS/HR Albumin Human 100 ml @ 100 mls/hr Q1HP PRN IV 12/08/24 10:15 12/08/24 10:29 100 MLS/HR Acetaminophen 1,000 mg Q8H PRN IV 12/08/24 17:15 12/13/24 11:11 1,000 MG Enteral Nutritional Formula 240 ml Q4HR PO 12/11/24 11:30 12/13/24 10:00 240 ML Metoprolol Tartrate 25 mg BID PO 12/12/24 22:00 Hold Norepinephrine Bitartrate 250 ml @ 3.75 mls/hr Q24H IV 12/12/24 13:30 12/14/24 09:36 33.75 MLS/HR Apixaban 2.5 mg BID PO 12/12/24 22:00 12/13/24 22:33 2.5 MG Phenylephrine HCl 250 ml @ 30 mls/hr Q8H20M IV 12/12/24 16:00 Vancomycin HCl 0 ml @ 0 mls/hr UD IV 12/12/24 17:15 Piperacillin Sod/ Tazobactam Sod 50 ml @ 12.5 mls/hr Q8H IV 12/12/24 18:00 12/14/24 09:54 12.5 MLS/HR Bumetanide 1 mg BIDD IV 12/13/24 10:00 12/14/24 05:52 1 MG Midazolam HCl 50 ml @ 1 mls/hr Q24H IV 12/13/24 11:00 12/13/24 19:31 2 MLS/HR Fentanyl Citrate 250 ml @ 2.5 mls/hr Q24H IV 12/13/24 11:00 12/13/24 11:00 2.5 MLS/HR Examination: GENERAL:Abnormal (Sedated), HEENT:Abnormal, LUNGS:Abnormal (Decreased breath sounds ), CVS:Normal, ABDOMEN:Normal laboratory and microbiology Laboratory Tests 12/14/24 03:00 Test 12/14/24 03:00 Range/Units Serum Glucose 137 H 74-106 mg/dL Problem List/Assessment/Plan Problem List/Assessment/Plan Problem List Atrial fibrillation with a rapid ventricular response, currently sinus rhythm. Severe anemia status post PRBC transfusions. Acute right MCA territory CVA. NSTEMI, likely type 2 secondary to above. Acute hypoxic respiratory failure, ?Aspiration pneumonia. ?Sepsis . Mild tricuspid regurgitation. End-stage renal disease on hemodialysis. History of colon cancer status post colectomy and colostomy. COPD. Plan/Recommendations Continued all current supportive medical care. Patient has been seen by Floridalma Schaefer NP on my behalf, her and I discussed the plan with the patient. Transthoracic echocardiogram reveals EF 55%. [id number] VASc score: 5 points, HAS-BLED score: 4 points. Held Eliquis given low H&H. Reconsult GI. SCD. Antiarrhythmic agent, amiodarone gt 0.25mcg. Beta-freedom for rate control. Monitor and replete electrolytes as needed, keep potassium greater than four and magnesium greater than two. Close Cardiac surveillance. The patient was initially seen by the cardiology team on 11/27/2024 when he was noted to go into atrial fibrillation with a rapid ventricular response. At that time, medical management was done and the patient converted into a normal sinus rhythm. Cardiology had since signed off. Today, the patient was noted to go back into an atrial fibrillation with rapid ventricular response rhythm. A twelve lead electrocardiogram was obtained and confirmed rhythm. At the time of assessment, the patient was noted to have coarse breath sounds and increased work of breathing and SpO2 82% on room air. The patient was placed on a high-flow nasal cannula and transferred down to the intensive care unit. Amiodarone IV bolus was ordered followed by the amiodarone IV drip protocol. Patient also noted to have an elevated temperature and elevated WBCs today. Primary team suspecting possible aspiration pneumonia. Recommend to treat the underlying cause to improve heart rate. Continue with close cardiac surveillance. Additional plan as per the hospital course. Plan discussed with: Other Dietary Evaluation Review Comments: 1) Nepro Carbsteady 240ml TID 2) Consider renal standard diet 3) Monitor PO intake, lab values, weight trend, and I/O Expected Outcomes/Goals: To meet >75% estimated needs lab values to improve Fu 3-5 days CC Plasma Assessment Blood Product Administration S: 15:15 Date of Service: Dec 14, 2024 Billing Provider: NIKKO PANTOJA MD Cardiology Common Codes: [id number] HOSP CARE(High, [id number] CARE 30-74 MIN NIKKO PANTOJA MD Dec 14, 2024 14:04
[2024-12-15] VITALS (86 sets, daily range): BP systolic 88–133; BP diastolic 14–27; PULSE 63–76; RESP 18–24; TEMP 97.2–98.8; O2SAT 99–100
--- NOTE | 2024-12-15 01:19 | DVHEEG2 ---
Neurology EEG Procedural Note Procedural Note EXAM DATE: 12/14/2024 REFERRING DOCTOR: Dr. Salgado TECHNIQUE: Eighteen channels of EEG, 2 channels of EOG, and 1 channel of EKG were recorded using the International 10/20 system. CLINICAL DATA: The patient was referred for an EEG evaluation for the evidence of seizure disorder. MEDICATIONS: See chart BACKGROUND ACTIVITY: There was significant amount of environmental artifacts in the recording, the EEG is likely low-amplitude diffuse theta activity over both hemispheres that was reactive to external stimuli. ACTIVATION: Hyperventilation: Not done Photic Stimulation: Not done Sleep: Nonresponsiveness IMPRESSION: This is a abnormal EEG, this EEG seen in cerebral dysfunction due to metabolic/hypoxic encephalopathy or medication effects, please correlate clin ically The EKG channel showed a regular heart rate of 72/hour [place] [address] PATSY SALGADO MD Dec 15, 2024 01:19
[2024-12-15 04:05] LABS: Nucleated Red Blood Cells % 0.1 %
[2024-12-15 04:09] LABS: Hematocrit 20.3 % (41.0-53.0); Mean Corpuscular Hemoglobin 29.3 pg (28.0-32.0); Mean Corpuscular Volume 88.5 fL (80.0-100.0)
[2024-12-15 04:15] LABS: Anion Gap 12 (5-15); Carbon Dioxide 29 mmol/L (20-31); Potassium 3.6 mmol/L (3.5-5.1); Sodium 139 mmol/L (136-145)
[2024-12-15 04:21] LABS: BUN/Creatinine Ratio 13.0 (10.0-20.0); Chloride 98 mmol/L (98-107); Glucose 165 mg/dL (74-106)
[2024-12-15 04:22] LABS: Blood Urea Nitrogen 34 mg/dL (9-23); Calcium 8.5 mg/dL (8.7-10.4)
[2024-12-15 04:27] LABS: Hemoglobin 6.7 g/dL (13.5-17.5)
--- NOTE | 2024-12-15 05:07 | DVH ---
CHEST RADIOGRAPH Indication: INTUBATED Technique: Single frontal view of the chest was obtained COMPARISON: XY CHEST PORTABLE on DOS: 12/14/24, XY CHEST PORTABLE on DOS: 12/13/24, XY CHEST PORTABLE o n DOS: 12/12/24, XY CHEST PORTABLE on DOS: 12/07/24, XY CHEST XRAY 1 VIEW on DOS: 12/05/24 FINDINGS: Lines and Tubes: Slight interval retraction of endotracheal tube such that the tip now projects appro ximately 4.3 cm above the level of the shreya. Remaining lines and tubes unchanged. Lungs: Slight interval decrease in density of left basilar pulmonary airspace disease. Pleura: No definite effusion. No pneumothorax. Cardiomediastinal contours: Unremarkable Bones: Unremarkable IMPRESSION: 1. Slight interval decrease in density of the left basilar pulmonary airspace disease. 2. Slight interval retraction of endotracheal tube such that the tip now projects approximately 4.3 c m above the level of the shreya. Remaining lines and tubes unchanged.
[2024-12-15 07:16] LABS: Base Excess 6.1 mmol/L (-2.0-3.0)
--- NOTE | 2024-12-15 07:32 | DVHPN2 ---
Progress Note Date Seen: Dec 15, 2024 Has the PT tested + for MRSA If YES, has PT been informed?: No Medical Necessity Reason Pt with a Central, PICC or Fol: Yes The following are medically ne: Ashraf Catheter Subjective Review of Systems: Not Done Objective vital signs Vital Sign Date Time Temp Pulse Resp B/P (MAP) Pulse Ox O2 Delivery O2 Flow Rate FiO2 12/15/24 06:45 66 18 93/15 (41) 100 30 12/15/24 06:30 98.4 209.1 12/14/24 20:00 Mechanical Ventilator+ 12/13/24 10:21 40.0 Total Intake and Output 12/14/24 12/14/24 12/15/24 15:00 23:00 07:00 Intake Total 437.64 ml 564.810 ml 363.000 ml Output Total 15 ml 20 ml Balance 437.64 ml 549.810 ml 343.000 ml medications Current Medications Medications Dose Ordered Sig/Delfino Route Start Time Stop Time Status Last Admin Dose Admin Amlodipine Besylate 10 mg DAILY PO 11/22/24 10:00 12/13/24 11:36 10 MG Hydralazine HCl 10 mg Q4HP PRN IV 11/23/24 09:15 12/09/24 00:11 10 MG Pantoprazole Sodium 40 mg BID IV 11/23/24 22:00 12/14/24 21:39 40 MG Sucralfate 1 gm BID PO 11/25/24 22:00 12/14/24 21:38 1 GM Diagnostic Test (Pha) 1 strip Q6HR 11/25/24 18:00 12/15/24 05:49 1 STRIP Insulin Human Regular FOLLOW SLIDING SCALE Q6HR SC 11/25/24 18:00 12/15/24 05:49 4 UNITS Dextrose 50 ml UD IV 11/25/24 17:15 Atorvastatin Calcium 40 mg HS PO 11/26/24 22:00 12/14/24 21:39 40 MG Metoprolol Tartrate 1.25 mg Q6HPRN PRN IV 11/28/24 18:30 12/12/24 11:10 1.25 MG Epoetin Rolando-epbx 4,000 unit MWF SC 12/01/24 14:00 UNV Enteral Nutritional Formula 1,000 ml 40ML/HR NG 12/02/24 18:00 12/13/24 06:15 1,000 ML Fat Emulsion Intravenous 150 ml/Sodium Chloride 40 meq/ Potassium Chloride 20 meq/ Multivitamins 10 ml/Chromium/ Copper/Manganese/ Zinc 1 ml/Amino Acids/Dextrose/ Purified Water 1,431 ml @ 59 mls/hr [id number] IV 12/03/24 22:00 12/04/24 21:59 Cancel Ipratropium [place] 0.5 mg Q4HR NEB 12/05/24 01:00 12/15/24 06:46 0.5 MG Epoetin Rolando-epbx 6,000 unit MWF@2100 SC 12/08/24 21:00 12/12/24 21:25 6,000 UNIT Albumin Human 100 ml @ 100 mls/hr Q1HP PRN IV 12/08/24 10:15 12/08/24 10:29 100 MLS/HR Acetaminophen 1,000 mg Q8H PRN IV 12/08/24 17:15 12/13/24 11:11 1,000 MG Enteral Nutritional Formula 240 ml Q4HR PO 12/11/24 11:30 12/13/24 10:00 240 ML Metoprolol Tartrate 25 mg BID PO 12/12/24 22:00 Hold Apixaban 2.5 mg BID PO 12/12/24 22:00 12/13/24 22:33 2.5 MG Phenylephrine HCl 250 ml @ 30 mls/hr Q8H20M IV 12/12/24 16:00 Vancomycin HCl 0 ml @ 0 mls/hr UD IV 12/12/24 17:15 Piperacillin Sod/ Tazobactam Sod 50 ml @ 12.5 mls/hr Q8H IV 12/12/24 18:00 12/15/24 03:38 12.5 MLS/HR Bumetanide 1 mg BIDD IV 12/13/24 10:00 12/15/24 05:38 1 MG Midazolam HCl 50 ml @ 1 mls/hr Q24H IV 12/13/24 11:00 12/14/24 21:48 2 MLS/HR Fentanyl Citrate 250 ml @ 2.5 mls/hr Q24H IV 12/13/24 11:00 12/14/24 11:00 5 MLS/HR Norepinephrine Bitartrate 32 mg/ Sodium Chloride 250 ml @ 0.938 mls/ hr Q24H IV 12/14/24 18:00 12/14/24 21:48 5.625 MLS/HR laboratory and microbiology Laboratory Tests 12/15/24 03:22 Test 12/15/24 03:22 Range/Units Serum Glucose 165 H 74-106 mg/dL Problem List/Assessment/Plan Problem List/Assessment/Plan 1) Acute on chronic respiratory failure, now intubated on ventilatory 2) Acute CVA with hemiplegia 3) Dysphagia 2/2 above s/p PEG placement 4) PNA, ?aspiration vs hospital acquired 5) Gram positive bacteremia 6) Septic shock 7) ESRD on HD 8) Hx of colon cancer s/p colostomy 9) COPD 10) HTN 11) Anemia s/p EGD with GI plan; 12/14---patient now intubated on ventilator with fio2 60%, had bronch done with pulm with BAL, on 18mcg levophed for vasopressor support this AM, BCx show gram pos cocci, continue with broad spectrum IV ABx, WBC trending down, nephrology on board for ESRD and HD needs, echo done earlier in hospital course shows EF 55%, LTACH order placed for acceptance to half-way care facility, i spoke to the patients dtr Adele at length and explained to her the patients overall critical condition and at this time she would like to continue with full code and is agreeable to proceed to transfer to LTACH once accepted, continue all supportive care, cardio/pulm/GI/renal/neuro all on board and documentum consultant input appreciated, will follow along medically 12/05---remains intubated on vent, fio2 30%, levophed now down to 10 mcg this AM., WBC trending down to 17k and he remains on broad spectrum IV ABx, HGb is 6.7 this AM thus will transfuse 2 units PRBC now, HD needs as per nephro, all documentum consultant input appreciated, continue all care, patient pending transfer to LTACH, spoke to dtkostas Angulo and she agrees to POC Plan discussed with: Other Dietary Evaluation Review Comments: 1) Nepro Carbsteady 240ml TID 2) Consider renal standard diet 3) Monitor PO intake, lab values, weight trend, and I/O Expected Outcomes/Goals: To meet >75% estimated needs lab values to improve Fu 3-5 days MILO MULLINS MD Dec 15, 2024 07:31
--- NOTE | 2024-12-15 09:48 | DVHDS2 ---
New Physician D'charge PN Admitting Diagnosis Admitting Diagnosis anemia Discharge Diagnosis respiratory failure pna anemia acute cva Operations or Procedures intubation EGD Reason(s) For Hospitalization Surgery Hospital Course 79 M who initially came to the hospital for anemia hgb 6.7. He was admitted and given blood transfusion and GI saw him and he underwent EGD which showed no active bleeding just gastritis/duodenitis and was maintained on PPI. His hgb improved after blood transfusion to 8 range. His is also a ESRD patient and was dialyzed by nephrology in the hospital. His hospital course was complicated by afib rvr requiring amio gtt and cardiology consult, Echo showed preserved EF 55% and cardiology followed him throughout the hospital course and he was restarted on eliquis after GI clearance. He became confused and agitated on the floor and MRI brain was ordered and he was noted to have an acute CVA and was seen by neurology. He failed multiple swallow evaluations and family decided for PEG tu be placement which was done by GI/surgery. He was initiated on tube feeds however developed respiratory failure due to possible aspiration PNA vs hospital acquired pna and was placed on HFNC. Eventually he was intubated and started on mechanical ventilatory support and transferred to the icu. His BCx grew gram pos cocci and hes on broad spectrum IV Abx vanco/zosyn. he was also started on levophed for vasopressor support and currently remains intubated on fio2 30% still on levophed as of this AM. Given his deteriorating status and prolonged hospital course this was discussed with his daughter Adele at length and she would like to continue with full code at this time and i recommended LTACH given his overall condition and she agrees to transfer to emt intermediate acute care once bed is available. [facility] to arrange for LTACH bed and transport and patient to DC to LTACH once all arranged. Treatment Plan Discharge Condition of Discharge Good Disposition Acute Care Facility Discharge Instructions Diet: See Comment Diet comment: npo Activity: Bed rest Medications: see med sheet Follow Up Care Follow Up/Referral: ltach Discharge Statement: "Patient was advised to return to the ER or call 911 if any headaches, dizziness, shortness of breath, chest pain, abdominal pain, bleeding, fevers, or worsening of medical condition. Patient was counseled about treatment plan, medications, possible side effects, patientverbalized understanding. All questions were answered to the best of my ability. This discharge took greater then 30 minutes in planning, reviewing documentation, counseling the patient, and discussing with other team members." MILO MULLINS MD Dec 15, 2024 09:48
--- NOTE | 2024-12-15 09:56 | DVHPN2 ---
Consult Progress Note Date Seen: Dec 15, 2024 Subjective Other Systems: No overnight cardiac events reported. Transitioned into a NSR Objective vital signs Vital Sign Date Time Temp Pulse Resp B/P (MAP) Pulse Ox O2 Delivery O2 Flow Rate FiO2 12/15/24 08:25 66 18 106/14 (44) 100 30 12/15/24 06:30 98.4 209.1 12/14/24 20:00 Mechanical Ventilator+ 12/13/24 10:21 40.0 Total Intake and Output 12/14/24 12/14/24 12/15/24 15:00 23:00 07:00 Intake Total 437.64 ml 564.810 ml 363.000 ml Output Total 15 ml 20 ml Balance 437.64 ml 549.810 ml 343.000 ml medications Current Medications Medications Dose Ordered Sig/Delfino Route Start Time Stop Time Status Last Admin Dose Admin Amlodipine Besylate 10 mg DAILY PO 11/22/24 10:00 12/13/24 11:36 10 MG Hydralazine HCl 10 mg Q4HP PRN IV 11/23/24 09:15 12/09/24 00:11 10 MG Pantoprazole Sodium 40 mg BID IV 11/23/24 22:00 12/14/24 21:39 40 MG Sucralfate 1 gm BID PO 11/25/24 22:00 12/14/24 21:38 1 GM Diagnostic Test (Pha) 1 strip Q6HR 11/25/24 18:00 12/15/24 05:49 1 STRIP Insulin Human Regular FOLLOW SLIDING SCALE Q6HR SC 11/25/24 18:00 12/15/24 05:49 4 UNITS Dextrose 50 ml UD IV 11/25/24 17:15 Atorvastatin Calcium 40 mg HS PO 11/26/24 22:00 12/14/24 21:39 40 MG Metoprolol Tartrate 1.25 mg Q6HPRN PRN IV 11/28/24 18:30 12/12/24 11:10 1.25 MG Epoetin Rolando-epbx 4,000 unit MWF DC 12/01/24 14:00 UNV Enteral Nutritional Formula 1,000 ml 40ML/HR NG 12/02/24 18:00 12/13/24 06:15 1,000 ML Fat Emulsion Intravenous 150 ml/Sodium Chloride 40 meq/ Potassium Chloride 20 meq/ Multivitamins 10 ml/Chromium/ Copper/Manganese/ Zinc 1 ml/Amino Acids/Dextrose/ Purified Water 1,431 ml @ 59 mls/hr [id number] IV 12/03/24 22:00 12/04/24 21:59 Cancel Ipratropium [place] 0.5 mg Q4HR NEB 12/05/24 01:00 12/15/24 06:46 0.5 MG Epoetin Rolando-epbx 6,000 unit MWF@2100 SC 12/08/24 21:00 12/12/24 21:25 6,000 UNIT Albumin Human 100 ml @ 100 mls/hr Q1HP PRN IV 12/08/24 10:15 12/08/24 10:29 100 MLS/HR Acetaminophen 1,000 mg Q8H PRN IV 12/08/24 17:15 12/13/24 11:11 1,000 MG Enteral Nutritional Formula 240 ml Q4HR PO 12/11/24 11:30 12/13/24 10:00 240 ML Metoprolol Tartrate 25 mg BID PO 12/12/24 22:00 Hold Apixaban 2.5 mg BID PO 12/12/24 22:00 12/13/24 22:33 2.5 MG Phenylephrine HCl 250 ml @ 30 mls/hr Q8H20M IV 12/12/24 16:00 Vancomycin HCl 0 ml @ 0 mls/hr UD IV 12/12/24 17:15 Piperacillin Sod/ Tazobactam Sod 50 ml @ 12.5 mls/hr Q8H IV 12/12/24 18:00 12/15/24 03:38 12.5 MLS/HR Bumetanide 1 mg BIDD IV 12/13/24 10:00 12/15/24 05:38 1 MG Midazolam HCl 50 ml @ 1 mls/hr Q24H IV 12/13/24 11:00 12/14/24 21:48 2 MLS/HR Fentanyl Citrate 250 ml @ 2.5 mls/hr Q24H IV 12/13/24 11:00 12/14/24 11:00 5 MLS/HR Norepinephrine Bitartrate 32 mg/ Sodium Chloride 250 ml @ 0.938 mls/ hr Q24H IV 12/14/24 18:00 12/14/24 21:48 5.625 MLS/HR Examination: GENERAL:Abnormal, LUNGS:Abnormal (Endotracheally intubated with 30% FiO2), CVS:Abnormal (NSR. On single-vasopressor. On amiodarone drip), NEURO:Abnormal (Chemically sedated) laboratory and microbiology Laboratory Tests 12/15/24 03:22 Test 12/15/24 03:22 Range/Units Serum Glucose 165 H 74-106 mg/dL Problem List/Assessment/Plan Problem List/Assessment/Plan Atrial fibrillation with a rapid ventricular response, currently sinus rhythm Severe anemia status post PRBC transfusions (+FOBT) Acute right MCA territory CVA Left cephalic vein thrombus NSTEMI, likely type 2 secondary to above Acute hypoxic respiratory failure, possible aspiration pneumonia End-stage renal disease on hemodialysis History of colon cancer status post colectomy and colostomy COPD Plan/Recommendations (Dr. Serrato) * Transthoracic echocardiogram reveals EF 55% * Antiarrhythmic agent, transition to amiodarone p.o. * Hold Eliquis and AC therapy given low H&H * Consider reconsultation of GI. Continue SCDs. * [id number] VASc score: 5 points, HAS-BLED score: 4 points * Rate control, low-dose beta-freedom. Uptitrate as tolerated * Monitor and replete electrolytes as needed, K>4 and Mg>2' * Monitor ECG changes closely and notify Very poor prognosis. Patient at high risk for acute CVA being off AC therapy. Recommend to treat the underlying cause of acute anemia and acute hypoxic respiratory event in order to prevent tachyarrhythmias. Cardiology will continue care on as needed basis. Kindly notify further need of care. Thank you for allowing us to care for this patient. Critical care time: 30 min. This medical document was created using an electronic medical record system with voice recognition software and computerized dictation system. Although this document has been carefully reviewed, there might still be some phonetic and typographical errors. Occasional wrong-word or ``sound-alike substitutions may have occurred due to the inherent limitations of voice recognition software. These areas are purely typographical due to imperfections of the software programs and do not reflect any compromise in the patient's medical care. Please read the chart carefully and recognize, using context, where these substitutions have occurred. Plan discussed with: Other Dietary Evaluation Review Comments: 1) Nepro Carbsteady 240ml TID 2) Consider renal standard diet 3) Monitor PO intake, lab values, weight trend, and I/O Expected Outcomes/Goals: To meet >75% estimated needs lab values to improve Fu 3-5 days CC Plasma Assessment Blood Product Administration S: 15:15 Date of Service: Dec 15, 2024 Billing Provider: DANY MCCORMACK Cardiology Common Codes: [id number] CARE 30-74 MIN DANY MCCORMACK Dec 15, 2024 09:56
[2024-12-15] MEDS ORDERED: METOPROLOL TARTRATE 25 MG TAB PO SCH (10:00)
[2024-12-15] MEDS ORDERED: METOPROLOL TARTRATE 25 MG TAB GT SCH (10:00)
[2024-12-15 10:21] LABS: Hepatitis B Surface Antigen Negative (Negative); Hepatitis C Antibody Negative (Negative)
[2024-12-15 10:34] LABS: Hematocrit 19.8 % (41.0-53.0); Mean Corpuscular Hemoglobin 29.3 pg (28.0-32.0); Mean Corpuscular Volume 90.4 fL (80.0-100.0); Nucleated Red Blood Cells % 0.0 %
[2024-12-15 10:37] LABS: Hemoglobin 6.4 g/dL (13.5-17.5)
--- NOTE | 2024-12-15 11:02 | DVHPN2 ---
Progress Note - Dictate Date Seen: Dec 15, 2024 Has the PT tested + for MRSA If YES, has PT been informed?: No Medical Necessity Reason Pt with a Central, PICC or Fol: Yes The following are medically ne: Ashraf Catheter Subjective Mr. kAbar is a 78 years old gentleman with a history of hypertension, dyslipidemia, COPD, end-stage kidney failure on hemodialysis, colon cancer status post colostomy, he was brought to the [facility] on 11/21/2024 with a chief company of general weakness and dark stool. He was transferred to ICU on 12/12/2024 with respiratory failure, hypoxia I have seen and examined the patient. I have talked to his nurse, he is responsive to light painful stimuli. He does not move his extremities Has been intubated since 12/13/2024 for respiratory distress. Stool occult blood, 11/21/2024: Positive Urinalysis, 11/23/2024: UTI UDS, 11/23/2024: Negative ABG, PO2: 49.8 WBC/HB/PLT/MCV, 11/21/2024: 12.3/5.8/267/94.5, 11/25/2024: 11.8/9.9/275/93.6, 12/12/2024: 24.6/7.9/191/89.8 PT/INR/PTT, 11/21/2024: 13/1.25/41.6 BUN/CR, 11/26/2024: 53/6.41, 12/12/2024: 105/6.27 lactic acid, 12/12/24: 5.1, 2.8 HGB A1c, 11/21/2024: <3.8 Lactic acid, 12/12/2024: 5.1, 2.7 TBI/AST/ALT/AP, 12/02/2024: 0.5/40/13/153, 12/06/2024, 0.8/66/45/172, 12/11/2024: 2.2/36/22/133, 12/12/2024: 1.5/178/56/158 TG/HDL/LDL/HDL, 11/27/2024: 203/156/93/21 Vitamin B12, 11/21/2024: 452 TSH, 11/21/2024: 2.27 EKG, 10/3124: AFib Carotid Doppler, 11/26/2024: 1. No hemodynamically significant stenosis noted in the right carotid system. Approximately 50-69 % focal stenosis in the mid right internal carotid artery. 2. No hemodynamically significant stenosis noted in the left carotid system. 3. The vertebral arteries were not visualized. Echocardiogram, 11/27/2024: Sinus rhythm. Concentric LVH with left atrial enlargement and aortic root enlargement. Dilation of the sinuses of Valsalva. Moderate mitral annular calcification of the base of the posterior mitral leaflet. The aortic and tricuspid appear to be structurally normal. Left ventricular systolic performance appears to be preserved. EF is about 55%. There is impaired diastolic relaxation. Normal RV function. There is mild aortic insufficiency. Mild tricuspid regurgitation. No pericardial effusion masses or vegetations Chest x-ray, 12/12/24: Mild cardiomegaly and mild pulmonary vascular congestion. Small to moderate left pleural effusion and left basilar consolidation likely atelectasis though pneumonia could contribute to this appearance. Chest x-ray, 12/13/2024: ET in the mid thoracic trachea. Left basilar consolidation similar to prior.. CT head, 11/09/2024: Acute to subacute infarction of the right frontoparietal lobe with thrombus in the right middle cerebral artery M2 segment. Recommend neurology consultation. Moderate chronic microvascular ischemic changes. MRI head, 11/26/2024: Acute infarction right middle cerebral artery distribution involving the right frontal and parietal lobes. Findings consistent with right M2 middle cerebral artery segment occlusion/thrombosis. Moderate chronic microvascular ischemic changes. EGD, 11/25/2024: 1. Minimal gastroduodenitis 2. Otherwise normal examination up to the 2nd and 3rd part of the duodenal with no fresh or old blood in the upper GI tract vital signs Vital Sign Date Time Temp Pulse Resp B/P (MAP) Pulse Ox O2 Delivery O2 Flow Rate FiO2 12/15/24 10:45 97.5 65 18 102/17 (45) 100 207.5 12/15/24 09:44 30 12/14/24 20:00 Mechanical Ventilator+ 12/13/24 10:21 40.0 Total Intake and Output 12/14/24 12/14/24 12/15/24 15:00 23:00 07:00 Intake Total 437.64 ml 564.810 ml 363.000 ml Output Total 15 ml 20 ml Balance 437.64 ml 549.810 ml 343.000 ml medications Current Medications Medications Dose Ordered Sig/Delfino Route Start Time Stop Time Status Last Admin Dose Admin Hydralazine HCl 10 mg Q4HP PRN IV 11/23/24 09:15 12/09/24 00:11 10 MG Pantoprazole Sodium 40 mg BID IV 11/23/24 22:00 12/15/24 10:26 40 MG Sucralfate 1 gm BID PO 11/25/24 22:00 12/15/24 10:26 1 GM Diagnostic Test (Pha) 1 strip Q6HR 11/25/24 18:00 12/15/24 05:49 1 STRIP Insulin Human Regular FOLLOW SLIDING SCALE Q6HR SC 11/25/24 18:00 12/15/24 05:49 4 UNITS Dextrose 50 ml UD IV 11/25/24 17:15 Atorvastatin Calcium 40 mg HS PO 11/26/24 22:00 12/14/24 21:39 40 MG Epoetin Rolando-epbx 4,000 unit MWF [place] 12/01/24 14:00 UNV Enteral Nutritional Formula 1,000 ml 40ML/HR NG 12/02/24 18:00 12/13/24 06:15 1,000 ML Fat Emulsion Intravenous 150 ml/Sodium Chloride 40 meq/ Potassium Chloride 20 meq/ Multivitamins 10 ml/Chromium/ Copper/Manganese/ Zinc 1 ml/Amino Acids/Dextrose/ Purified Water 1,431 ml @ 59 mls/hr [id number] IV 12/03/24 22:00 12/04/24 21:59 Cancel Ipratropium [place] 0.5 mg Q4HR NEB 12/05/24 01:00 12/15/24 09:44 0.5 MG Epoetin Rolando-epbx 6,000 unit MWF@2100 [place] 12/08/24 21:00 12/12/24 21:25 6,000 UNIT Albumin Human 100 ml @ 100 mls/hr Q1HP PRN IV 12/08/24 10:15 12/08/24 10:29 100 MLS/HR Acetaminophen 1,000 mg Q8H PRN IV 12/08/24 17:15 12/13/24 11:11 1,000 MG Enteral Nutritional Formula 240 ml Q4HR PO 12/11/24 11:30 12/13/24 10:00 240 ML Phenylephrine HCl 250 ml @ 30 mls/hr Q8H20M IV 12/12/24 16:00 Vancomycin HCl 0 ml @ 0 mls/hr UD IV 12/12/24 17:15 Piperacillin Sod/ Tazobactam Sod 50 ml @ 12.5 mls/hr Q8H IV 12/12/24 18:00 12/15/24 10:26 12.5 MLS/HR Bumetanide 1 mg BIDD IV 12/13/24 10:00 12/15/24 05:38 1 MG Midazolam HCl 50 ml @ 1 mls/hr Q24H IV 12/13/24 11:00 12/14/24 21:48 2 MLS/HR Fentanyl Citrate 250 ml @ 2.5 mls/hr Q24H IV 12/13/24 11:00 12/15/24 10:27 5 MLS/HR Norepinephrine Bitartrate 32 mg/ Sodium Chloride 250 ml @ 0.938 mls/ hr Q24H IV 12/14/24 18:00 12/14/24 21:48 5.625 MLS/HR Amiodarone HCl 200 mg Q12HR GT 12/15/24 10:00 UNV Metoprolol Tartrate 12.5 mg BID GT 12/15/24 10:00 UNV objective The patient is well-nourished and well-developed with no distress. The patient is intubated MENTAL STATUS: Subjective CRANIAL NERVES: Pupils are equal, round and reactive.There are corneal reflexes and doll's eyes phenomenon. No signs of facial weakness. There are gagging or coughing reflexes SENSATION: Responsive to touch MOTOR: Normal tone in the upper and lower extremity. Normal muscle bulk. No fasciculations. No spontaneous movement. REFLEXES: Deep tendon reflexes are symmetrical. Upgoing toes bilaterally CEREBELLAR/COORDINATION: Deferred GAIT/STATION: deferred. laboratory and microbiology Laboratory Tests 12/15/24 10:00 12/15/24 03:22 Test 12/15/24 03:22 Range/Units Serum Glucose 165 H 74-106 mg/dL Problem List Acute respiratory distress in the evening on 12/04/2028 Acute right MCA territory stroke with acute left hemiparesis Atrial fibrillation Altered mental status Secondary to acute stroke Metabolic encephalopathy Rule out seizure activity End-stage kidney failure Acute neck pain, etiology unclear Mass GI bleeding status post RBC transfusion Elevated liver function tests History of colon cancer Gait disturbance, maybe secondary to drug effects Assessment/Plan Monitoring Supportive treatment ICU care Stabilize vitals Respiratory support/vent management Oxygen IV antibiotics Lipitor 40 mg daily Carafate 1 g b.i.d. Protonix 40 mg b.i.d. Nephrology on case/hemodialysis GI specialist on case More recommendation per clinical course This medical document was created using an electronic medical record system with [employer] dictation system. Although this document has been carefully reviewed, there may still be some phonetic and typographical errors. These areas are purely typographical due to imperfections of the software programs, and do not reflect any compromise in the patient's medical care. Prognosis Guarded Dietary Evaluation Review Comments: 1) Nepro Carbsteady 240ml TID 2) Consider renal standard diet 3) Monitor PO intake, lab values, weight trend, and I/O Expected Outcomes/Goals: To meet >75% estimated needs lab values to improve Fu 3-5 days Plan discussed with: Other Critical Care Time(min): 30 CC Plasma Assessment Blood Product Administration S: 15:15 PATSY SALGADO MD Dec 15, 2024 11:02
--- NOTE | 2024-12-15 11:49 | DVHPN2 ---
Progress Note Date Seen: Dec 15, 2024 Has the PT tested + for MRSA If YES, has PT been informed?: No Medical Necessity Reason Pt with a Central, PICC or Fol: Yes The following are medically ne: Ashraf Catheter Objective vital signs Vital Sign Date Time Temp Pulse Resp B/P (MAP) Pulse Ox O2 Delivery O2 Flow Rate FiO2 12/15/24 11:14 64 18 111/18 (49) 100 30 12/15/24 10:45 97.5 207.5 12/15/24 08:00 Mechanical Ventilator+ 12/13/24 10:21 40.0 Total Intake and Output 12/14/24 12/14/24 12/15/24 15:00 23:00 07:00 Intake Total 437.64 ml 564.810 ml 383.018 ml Output Total 15 ml 20 ml Balance 437.64 ml 549.810 ml 363.018 ml medications Current Medications Medications Dose Ordered Sig/Delfino Route Start Time Stop Time Status Last Admin Dose Admin Hydralazine HCl 10 mg Q4HP PRN IV 11/23/24 09:15 12/09/24 00:11 10 MG Pantoprazole Sodium 40 mg BID IV 11/23/24 22:00 12/15/24 10:26 40 MG Sucralfate 1 gm BID PO 11/25/24 22:00 12/15/24 10:26 1 GM Diagnostic Test (Pha) 1 strip Q6HR 11/25/24 18:00 12/15/24 05:49 1 STRIP Insulin Human Regular FOLLOW SLIDING SCALE Q6HR SC 11/25/24 18:00 12/15/24 05:49 4 UNITS Dextrose 50 ml UD IV 11/25/24 17:15 Atorvastatin Calcium 40 mg HS PO 11/26/24 22:00 12/14/24 21:39 40 MG Epoetin Rolando-epbx 4,000 unit MWF [place] 12/01/24 14:00 UNV Enteral Nutritional Formula 1,000 ml 40ML/HR NG 12/02/24 18:00 12/13/24 06:15 1,000 ML Fat Emulsion Intravenous 150 ml/Sodium Chloride 40 meq/ Potassium Chloride 20 meq/ Multivitamins 10 ml/Chromium/ Copper/Manganese/ Zinc 1 ml/Amino Acids/Dextrose/ Purified Water 1,431 ml @ 59 mls/hr [id number] IV 12/03/24 22:00 8/7/25 21:59 Cancel Ipratropium [place] 0.5 mg Q4HR NEB 12/05/24 01:00 12/15/24 09:44 0.5 MG Epoetin Rolando-epbx 6,000 unit MWF@2100 [place] 12/08/24 21:00 12/12/24 21:25 6,000 UNIT Albumin Human 100 ml @ 100 mls/hr Q1HP PRN IV 12/08/24 10:15 12/08/24 10:29 100 MLS/HR Acetaminophen 1,000 mg Q8H PRN IV 12/08/24 17:15 12/13/24 11:11 1,000 MG Enteral Nutritional Formula 240 ml Q4HR PO 12/11/24 11:30 12/13/24 10:00 240 ML Phenylephrine HCl 250 ml @ 30 mls/hr Q8H20M IV 12/12/24 16:00 Vancomycin HCl 0 ml @ 0 mls/hr UD IV 12/12/24 17:15 Piperacillin Sod/ Tazobactam Sod 50 ml @ 12.5 mls/hr Q8H IV 12/12/24 18:00 12/15/24 10:26 12.5 MLS/HR Bumetanide 1 mg BIDD IV 12/13/24 10:00 12/15/24 05:38 1 MG Midazolam HCl 50 ml @ 1 mls/hr Q24H IV 12/13/24 11:00 12/14/24 21:48 2 MLS/HR Fentanyl Citrate 250 ml @ 2.5 mls/hr Q24H IV 12/13/24 11:00 12/15/24 10:27 5 MLS/HR Norepinephrine Bitartrate 32 mg/ Sodium Chloride 250 ml @ 0.938 mls/ hr Q24H IV 12/14/24 18:00 12/14/24 21:48 5.625 MLS/HR Amiodarone HCl 200 mg Q12HR GT 12/15/24 10:00 Metoprolol Tartrate 12.5 mg BID GT 12/15/24 10:00 Hold laboratory and microbiology Laboratory Tests 12/15/24 10:00 12/15/24 03:22 Test 12/15/24 03:22 Range/Units Serum Glucose 165 H 74-106 mg/dL Microbiology Date/Time Source Procedure Growth Status 12/13/24 11:19 Bronchial Brushings Gram Stain - Final Resulted 12/13/24 11:19 Bronchial Brushings Respiratory Culture - Preliminary Resulted 12/12/24 16:06 Blood Blood Culture - Preliminary Resulted 12/12/24 12:30 Nose MRSA Screen - Final Complete 11/25/24 09:23 Urine - Midstream Clean Catch Urine Culture - Final Complete Problem List/Assessment/Plan Problem List/Assessment/Plan Admitted for acute CVA ESRD on HD hx of COPD respiratory failure Anemia CVA fronto parietal metabolic acidosis CHF hyperkalemia prbc today hd levophed to keep map >65 Strict I&Os Blood pressure control epogen 3x a week poor prognosis Plan discussed with: Other Dietary Evaluation Review Comments: 1) Nepro Carbsteady 240ml TID 2) Consider renal standard diet 3) Monitor PO intake, lab values, weight trend, and I/O Expected Outcomes/Goals: To meet >75% estimated needs lab values to improve Fu 3-5 days Critical Care Time (mins): 33 CC Plasma Assessment Blood Product Administration S: 15:15 TERESA REYNOLDS MD Dec 15, 2024 11:49
[2024-12-15] MEDS: AMIODARONE HCL 200 MG TAB GT SCH (11:50)
--- NOTE | 2024-12-15 13:02 | ECG ---
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
--- NOTE | 2024-12-15 18:27 | DVHPN2 ---
Progress Note - Dictate Date Seen: Dec 15, 2024 Has the PT tested + for MRSA If YES, has PT been informed?: No Medical Necessity Reason Pt with a Central, PICC or Fol: Yes The following are medically ne: Ashraf Catheter vital signs Vital Sign Date Time Temp Pulse Resp B/P (MAP) Pulse Ox O2 Delivery O2 Flow Rate FiO2 12/15/24 17:45 98.4 66 18 123/21 (55) 100 209.1 12/15/24 16:00 30 12/15/24 08:00 Mechanical Ventilator+ 12/13/24 10:21 40.0 Total Intake and Output 12/14/24 12/14/24 12/15/24 15:00 23:00 07:00 Intake Total 437.64 ml 564.810 ml 383.018 ml Output Total 15 ml 20 ml Balance 437.64 ml 549.810 ml 363.018 ml medications Current Medications Medications Dose Ordered Sig/Delfino Route Start Time Stop Time Status Last Admin Dose Admin Hydralazine HCl 10 mg Q4HP PRN IV 11/23/24 09:15 12/09/24 00:11 10 MG Pantoprazole Sodium 40 mg BID IV 11/23/24 22:00 12/15/24 10:26 40 MG Sucralfate 1 gm BID PO 11/25/24 22:00 12/15/24 10:26 1 GM Diagnostic Test (Pha) 1 strip Q6HR 11/25/24 18:00 12/15/24 11:51 1 STRIP Insulin Human Regular FOLLOW SLIDING SCALE Q6HR SC 11/25/24 18:00 12/15/24 11:53 4 UNITS Dextrose 50 ml UD IV 11/25/24 17:15 Atorvastatin Calcium 40 mg HS PO 11/26/24 22:00 12/14/24 21:39 40 MG Epoetin Rolando-epbx 4,000 unit MWF [place] 12/01/24 14:00 UNV Enteral Nutritional Formula 1,000 ml 40ML/HR NG 12/02/24 18:00 12/13/24 06:15 1,000 ML Fat Emulsion Intravenous 150 ml/Sodium Chloride 40 meq/ Potassium Chloride 20 meq/ Multivitamins 10 ml/Chromium/ Copper/Manganese/ Zinc 1 ml/Amino Acids/Dextrose/ Purified Water 1,431 ml @ 59 mls/hr [id number] IV 12/03/24 22:00 12/04/24 21:59 Cancel Ipratropium [place] 0.5 mg Q4HR NEB 12/05/24 01:00 12/15/24 13:10 0.5 MG Epoetin Rolando-epbx 6,000 unit MWF@2100 SC 12/08/24 21:00 12/12/24 21:25 6,000 UNIT Albumin Human 100 ml @ 100 mls/hr Q1HP PRN IV 12/08/24 10:15 12/08/24 10:29 100 MLS/HR Acetaminophen 1,000 mg Q8H PRN IV 12/08/24 17:15 12/13/24 11:11 1,000 MG Enteral Nutritional Formula 240 ml Q4HR PO 12/11/24 11:30 12/13/24 10:00 240 ML Phenylephrine HCl 250 ml @ 30 mls/hr Q8H20M IV 12/12/24 16:00 Vancomycin HCl 0 ml @ 0 mls/hr UD IV 12/12/24 17:15 Piperacillin Sod/ Tazobactam Sod 50 ml @ 12.5 mls/hr Q8H IV 12/12/24 18:00 12/15/24 10:26 12.5 MLS/HR Bumetanide 1 mg BIDD IV 12/13/24 10:00 12/15/24 05:38 1 MG Midazolam HCl 50 ml @ 1 mls/hr Q24H IV 12/13/24 11:00 12/14/24 21:48 2 MLS/HR Fentanyl Citrate 250 ml @ 2.5 mls/hr Q24H IV 12/13/24 11:00 12/15/24 10:27 5 MLS/HR Norepinephrine Bitartrate 32 mg/ Sodium Chloride 250 ml @ 0.938 mls/ hr Q24H IV 12/14/24 18:00 12/14/24 21:48 5.625 MLS/HR Amiodarone HCl 200 mg Q12HR GT 12/15/24 10:00 12/15/24 11:50 200 MG Metoprolol Tartrate 12.5 mg BID GT 12/15/24 10:00 Hold laboratory and microbiology Laboratory Tests 12/15/24 10:00 12/15/24 03:22 Test 12/15/24 03:22 Range/Units Serum Glucose 165 H 74-106 mg/dL Assessment/Plan Acute hypoxemic respiratory failure Noninvasive ventilation Respiratory alkalosis pleural effusion atelectases pneumonia End-stage renal disease hemodialysis Acute right MCA stroke The patient is seen and examined in the ICU events on mechanical ventilation s/p intubation PEEP 7, FiO2 30% s/p bronchoscopy yesterday MRI report noted Acute infarction right middle cerebral artery distribution involving the right frontal and parietal lobes. Findings consistent with right M2 middle cerebral artery segment occlusion/thrombosis. Moderate chronic microvascular ischemic changes. Occipital scalp mass, indeterminate, measuring 6.6 x 3.0 cm. This does NOT have features of a fatty containing lesion Management plan Sedation Versed/propofol/fentanyl full ventilator asynchrony We will continue Dialysis per Nephrology with fluid removal Bronchodilators TPN for nutrition Broad-spectrum antibiotics for pneumonia Prognosis very poor Patient is full code for now family fully updated Will almost certainly require tracheostomy Critical care time 35 minutes Dietary Evaluation Review Comments: 1) Nepro Carbsteady 240ml TID 2) Consider renal standard diet 3) Monitor PO intake, lab values, weight trend, and I/O Expected Outcomes/Goals: To meet >75% estimated needs lab values to improve Fu 3-5 days Plan discussed with: Patient CC Plasma Assessment Blood Product Administration S: 15:15 TORSTEN GREEN MD Dec 15, 2024 18:27
--- NOTE | 2024-12-15 18:58 | DVHPN2 ---
Progress Note Date Seen: Dec 15, 2024 Resident Creating Document: ROBLES SWEENEY RESIDENT Has the PT tested + for MRSA If YES, has PT been informed?: No Medical Necessity Reason Pt with a Central, PICC or Fol: Yes The following are medically ne: Ashraf Catheter Subjective Review of Systems TODAY'S PROGRESS- Patient remains intubated and mechanically ventilated. PEG tube in place, receiving continuous tube feedings with Nepro. Colostomy output noted at 20-30 mL today. Currently on vasopressor support Levophed infusion for hemodynamic stabilization. Stable overnight with no acute new complaints given sedation and intubated status. The patient is being transferred today to LTAC for ongoing nutritional support rehabilitation and ventilator weaning. Objective vital signs Vital Sign Date Time Temp Pulse Resp B/P (MAP) Pulse Ox O2 Delivery O2 Flow Rate FiO2 12/15/24 18:45 98.6 69 18 125/19 98.6 12/15/24 18:45 100 12/15/24 18:34 30 12/15/24 08:00 Mechanical Ventilator+ 12/13/24 10:21 40.0 Total Intake and Output 12/14/24 12/14/24 12/15/24 15:00 23:00 07:00 Intake Total 437.64 ml 564.810 ml 383.018 ml Output Total 15 ml 20 ml Balance 437.64 ml 549.810 ml 363.018 ml medications Current Medications Medications Dose Ordered Sig/Delfino Route Start Time Stop Time Status Last Admin Dose Admin Hydralazine HCl 10 mg Q4HP PRN IV 11/23/24 09:15 12/09/24 00:11 10 MG Pantoprazole Sodium 40 mg BID IV 11/23/24 22:00 12/15/24 10:26 40 MG Sucralfate 1 gm BID PO 11/25/24 22:00 12/15/24 10:26 1 GM Diagnostic Test (Pha) 1 strip Q6HR 11/25/24 18:00 12/15/24 18:00 1 STRIP Insulin Human Regular FOLLOW SLIDING SCALE Q6HR SC 11/25/24 18:00 12/15/24 18:00 4 UNITS Dextrose 50 ml UD IV 11/25/24 17:15 Atorvastatin Calcium 40 mg HS PO 11/26/24 22:00 12/14/24 21:39 40 MG Epoetin Rolando-epbx 4,000 unit MWF SC 12/01/24 14:00 UNV Enteral Nutritional Formula 1,000 ml 40ML/HR NG 12/02/24 18:00 12/13/24 06:15 1,000 ML Fat Emulsion Intravenous 150 ml/Sodium Chloride 40 meq/ Potassium Chloride 20 meq/ Multivitamins 10 ml/Chromium/ Copper/Manganese/ Zinc 1 ml/Amino Acids/Dextrose/ Purified Water 1,431 ml @ 59 mls/hr [id number] IV 12/03/24 22:00 12/04/24 21:59 Cancel Ipratropium [place] 0.5 mg Q4HR NEB 12/05/24 01:00 12/15/24 18:34 0.5 MG Epoetin Rolando-epbx 6,000 unit MWF@2100 [place] 12/08/24 21:00 12/12/24 21:25 6,000 UNIT Albumin Human 100 ml @ 100 mls/hr Q1HP PRN IV 12/08/24 10:15 12/08/24 10:29 100 MLS/HR Acetaminophen 1,000 mg Q8H PRN IV 12/08/24 17:15 12/13/24 11:11 1,000 MG Enteral Nutritional Formula 240 ml Q4HR PO 12/11/24 11:30 12/13/24 10:00 240 ML Phenylephrine HCl 250 ml @ 30 mls/hr Q8H20M IV 12/12/24 16:00 Vancomycin HCl 0 ml @ 0 mls/hr UD IV 12/12/24 17:15 Piperacillin Sod/ Tazobactam Sod 50 ml @ 12.5 mls/hr Q8H IV 12/12/24 18:00 12/15/24 18:34 12.5 MLS/HR Bumetanide 1 mg BIDD IV 12/13/24 10:00 12/15/24 18:34 1 MG Midazolam HCl 50 ml @ 1 mls/hr Q24H IV 12/13/24 11:00 12/14/24 21:48 2 MLS/HR Fentanyl Citrate 250 ml @ 2.5 mls/hr Q24H IV 12/13/24 11:00 12/15/24 10:27 5 MLS/HR Norepinephrine Bitartrate 32 mg/ Sodium Chloride 250 ml @ 0.938 mls/ hr Q24H IV 12/14/24 18:00 12/14/24 21:48 5.625 MLS/HR Amiodarone HCl 200 mg Q12HR GT 12/15/24 10:00 12/15/24 11:50 200 MG Metoprolol Tartrate 12.5 mg BID GT 12/15/24 10:00 Hold Examination GENERAL:Abnormal, LUNGS:Abnormal (Endotracheally intubated with 30% FiO2), CVS:Abnormal (NSR. On single-vasopressor. On amiodarone drip), NEURO:Abnormal (Chemically sedated) laboratory and microbiology Laboratory Tests 12/15/24 10:00 12/15/24 03:22 Test 12/15/24 03:22 Range/Units Serum Glucose 165 H 74-106 mg/dL Microbiology Date/Time Source Procedure Growth Status 12/13/24 11:19 Bronchial Brushings Gram Stain - Final Resulted 12/13/24 11:19 Bronchial Brushings Respiratory Culture - Preliminary Resulted 12/12/24 16:06 Blood Blood Culture - Preliminary Enterococcus faecalis Resulted 12/12/24 12:30 Nose MRSA Screen - Final Complete 11/25/24 09:23 Urine - Midstream Clean Catch Urine Culture - Final Complete Problem List/Assessment/Plan Problem List/Assessment/Plan Assessment 1. Upper GI bleed with melena resolved; no current bleeding. 2. Gastroduodenitis continue PPI and Carafate. 3. Severe anemia (multifactorial, prior GI loss and CKD) stable post- transfusion. 4. Parastomal hernia stable, no obstruction. 6. ESRD on HD continue scheduled dialysis. 7. Acute right MCA stroke with dysphagia managed by neurology. 8. Atrial fibrillation (now sinus rhythm on amiodarone) 9. Severe Protein-Calorie Malnutrition * Due to inability to tolerate oral/enteral nutrition, failed NG placement, failed swallow evaluation * Currently on parenteral nutrition via Clinimix * PEG placement done 10. Dysphagia and Feeding Intolerance * Due to post-stroke aphasia and poor gag/swallow reflex * Failed repeat swallow evaluation * Requires PEG for long-term feeding 11.4. Elevated Liver Enzymes * Downtrending * Likely secondary to TPN, hepatic congestion, or ESRD * Continue to monitor LFTs Plan Gastrointestinal / Nutrition The patient is being transferred to LTAC today for ongoing ventilator weaning, nutritional support and rehabilitation once stable for transport. PEG TUBE Continue PEG tube feeds with Nepro with carb steady. Titrate rate as tolerated. Monitor residuals and colostomy output. GI care for ongoing colostomy and PEG management. Continue dry dressing with hydrogen peroxide and maintain a clean area around the PEG tube insertion site * Continue TPN * Maintain NPO status * Monitor abdominal exam, colostomy output * Monitor LFTs and electrolytes daily Hematology * Monitor CBC daily * No current signs of bleeding RESUME ASPIRIN AGAIN TODAY * Maintain transfusion threshold Hgb <7 unless symptomatic Neurologic * Aphasia and non-verbal state post-stroke * High aspiration risk. PEG feeding * Continue supportive care, neuro re-eval not indicated unless mental status changes Disposition * SNF vs hospice under discussion * Family and PCP engaged in shared decision-making WE WILL CLOSELY MONITOR THIS PATIENT Case discussed in detail with the attending physician, including the clinical presentation, diagnostic workup, and comprehensive management plan. Plan discussed with: Other (RN) Dietary Evaluation Review Comments: 1) Nepro Carbsteady 240ml TID 2) Consider renal standard diet 3) Monitor PO intake, lab values, weight trend, and I/O Expected Outcomes/Goals: To meet >75% estimated needs lab values to improve Fu 3-5 days CC Plasma Assessment Blood Product Administration S: 15:15 ROBLES SWEENEY RESIDENT Dec 15, 2024 18:58
--- NOTE | 2024-12-15 23:43 | DVHPN2 ---
Consult Progress Note Date Seen: Dec 15, 2024 Subjective Other Systems: Patient was seen and evaluated in follow p in the ICU. Patient is intubated and sedated on ventilator. 30% FiO2. No overnight cardiac events reported. Transitioned into a NSR. Patient is cardiac stable for discharge. Objective vital signs Vital Sign Date Time Temp Pulse Resp B/P (MAP) Pulse Ox O2 Delivery O2 Flow Rate FiO2 12/15/24 19:15 98.6 66 18 129/22 (57) 100 209.5 12/15/24 18:34 30 12/15/24 08:00 Mechanical Ventilator+ 12/13/24 10:21 40.0 Total Intake and Output 12/14/24 12/14/24 12/15/24 15:00 23:00 07:00 Intake Total 437.64 ml 564.810 ml 383.018 ml Output Total 15 ml 20 ml Balance 437.64 ml 549.810 ml 363.018 ml medications Current Medications Medications Dose Ordered Sig/Delfino Route Start Time Stop Time Status Last Admin Dose Admin Epoetin Rolando-epbx 4,000 unit MWF SC 12/01/24 14:00 UNV Fat Emulsion Intravenous 150 ml/Sodium Chloride 40 meq/ Potassium Chloride 20 meq/ Multivitamins 10 ml/Chromium/ Copper/Manganese/ Zinc 1 ml/Amino Acids/Dextrose/ Purified Water 1,431 ml @ 59 mls/hr [id number] IV 12/03/24 22:00 12/04/24 21:59 Cancel Examination: GENERAL:Abnormal, HEENT:Normal, NECK:Normal, LUNGS:Abnormal (Endotracheally intubated with 30% FiO2), CVS:Abnormal (NSR on vasopressor, amiodarone drip), SKIN:Normal, NEURO:Abnormal (Sedated) laboratory and microbiology Laboratory Tests 12/15/24 10:00 12/15/24 03:22 Test 12/15/24 03:22 Range/Units Serum Glucose 165 H 74-106 mg/dL Problem List/Assessment/Plan Problem List/Assessment/Plan Problem List Atrial fibrillation with a rapid ventricular response, currently sinus rhythm. Severe anemia status post PRBC transfusions (+FOBT). Acute right MCA territory CVA. Left cephalic vein thrombus. NSTEMI, likely type 2 secondary to above. Acute hypoxic respiratory failure, possible aspiration pneumonia. End-stage renal disease on hemodialysis. History of colon cancer status post colectomy and colostomy. COPD. Plan/Recommendations Continued all current supportive medical care. Patient has been seen by Eileen Carrington NP on my behalf. We have discussed the plan with the patient. Very poor prognosis. Patient at high risk for acute CVA being off AC therapy. Recommend to treat the underlying cause of acute anemia and acute hypoxic respiratory event in order to prevent tachyarrhythmias Cardiology will continue care on as needed basis. Transthoracic echocardiogram reveals EF 55%. Antiarrhythmic agent, transition to amiodarone p.o. Hold Eliquis and AC therapy given low H&H. Consider reconsultation of GI. Continue SCDs. [id number] VASc score: 5 points, HAS-BLED score: 4 points. Rate control, low-dose beta-freedom. Uptitrate as tolerated. Monitor and replete electrolytes as needed, K>4 and Mg>2'. Monitor ECG changes closely and notify. Additional plan as per the hospital course. Plan discussed with: Other Dietary Evaluation Review Comments: 1) Nepro Carbsteady 240ml TID 2) Consider renal standard diet 3) Monitor PO intake, lab values, weight trend, and I/O Expected Outcomes/Goals: To meet >75% estimated needs lab values to improve Fu 3-5 days CC Plasma Assessment Blood Product Administration S: 15:15 Date of Service: Dec 15, 2024 Billing Provider: NIKKO PANTOJA MD Cardiology Common Codes: 11612-[id number] CARE 30-74 MIN NIKKO PANTOJA MD Dec 15, 2024 23:43
== END 2024-12-15 19:55 | DRG 871 ==
LOC: ER 11:16 → MERGE 16:19 → OVERFLOW 16:19 → TELE-WESTW 17:58 → ICU CENTRL 12-07 21:36 → TELE-WESTW 12-09 15:59 → WEST WING 12-10 20:48 → TELE-WESTW 12-12 10:36 → ICU WEST 12-12 12:23
PROVIDERS: ATTEND Emergency Medicine
PROC: 30233N1 Transfusion of Nonautologous Red Blood Cells into Peripheral Vein, Percutaneous Approach (ICD-10-PCS; principal; 2024-11-21)
PROC: 5A1D70Z Performance of Urinary Filtration, Intermittent, Less than 6 Hours Per Day (ICD-10-PCS; 2024-11-22)
PROC: 5A1D70Z Performance of Urinary Filtration, Intermittent, Less than 6 Hours Per Day (ICD-10-PCS; 2024-11-24)
PROC: 0DB98ZX Excision of Duodenum, Via Natural or Artificial Opening Endoscopic, Diagnostic (ICD-10-PCS; 2024-11-25)
PROC: 0DB68ZX Excision of Stomach, Via Natural or Artificial Opening Endoscopic, Diagnostic (ICD-10-PCS; 2024-11-25)
PROC: 0DB48ZX Excision of Esophagogastric Junction, Via Natural or Artificial Opening Endoscopic, Diagnostic (ICD-10-PCS; 2024-11-25)
PROC: 5A1D70Z Performance of Urinary Filtration, Intermittent, Less than 6 Hours Per Day (ICD-10-PCS; 2024-11-26)
PROC: 5A1D70Z Performance of Urinary Filtration, Intermittent, Less than 6 Hours Per Day (ICD-10-PCS; 2024-11-29)
PROC: 5A1D70Z Performance of Urinary Filtration, Intermittent, Less than 6 Hours Per Day (ICD-10-PCS; 2024-12-02)
PROC: 5A1D70Z Performance of Urinary Filtration, Intermittent, Less than 6 Hours Per Day (ICD-10-PCS; 2024-12-04)
PROC: 5A1D70Z Performance of Urinary Filtration, Intermittent, Less than 6 Hours Per Day (ICD-10-PCS; 2024-12-05)
PROC: 5A09357 Assistance with Respiratory Ventilation, Less than 24 Consecutive Hours, Continuous Positive Airway Pressure (ICD-10-PCS; 2024-12-07)
PROC: 5A1D70Z Performance of Urinary Filtration, Intermittent, Less than 6 Hours Per Day (ICD-10-PCS; 2024-12-07)
PROC: 5A1D70Z Performance of Urinary Filtration, Intermittent, Less than 6 Hours Per Day (ICD-10-PCS; 2024-12-08)
PROC: 0DH63UZ Insertion of Feeding Device into Stomach, Percutaneous Approach (ICD-10-PCS; 2024-12-10)
PROC: 0DH63UZ Insertion of Feeding Device into Stomach, Percutaneous Approach (ICD-10-PCS; 2024-12-10)
PROC: 0JH63XZ Insertion of Tunneled Vascular Access Device into Chest Subcutaneous Tissue and Fascia, Percutaneous Approach (ICD-10-PCS; 2024-12-10)
PROC: 02HV33Z Insertion of Infusion Device into Superior Vena Cava, Percutaneous Approach (ICD-10-PCS; 2024-12-10)
PROC: B5181ZA Fluoroscopy of Superior Vena Cava using Low Osmolar Contrast, Guidance (ICD-10-PCS; 2024-12-10)
PROC: B548ZZA Ultrasonography of Superior Vena Cava, Guidance (ICD-10-PCS; 2024-12-10)
PROC: 5A1D70Z Performance of Urinary Filtration, Intermittent, Less than 6 Hours Per Day (ICD-10-PCS; 2024-12-10)
PROC: 5A0935A Assistance with Respiratory Ventilation, Less than 24 Consecutive Hours, High Flow/Velocity Cannula (ICD-10-PCS; 2024-12-12)
PROC: 5A1D70Z Performance of Urinary Filtration, Intermittent, Less than 6 Hours Per Day (ICD-10-PCS; 2024-12-12)
PROC: 0BH17EZ Insertion of Endotracheal Airway into Trachea, Via Natural or Artificial Opening (ICD-10-PCS; 2024-12-13)
PROC: 0B9B8ZZ Drainage of Left Lower Lobe Bronchus, Via Natural or Artificial Opening Endoscopic (ICD-10-PCS; 2024-12-13)
PROC: 0B968ZZ Drainage of Right Lower Lobe Bronchus, Via Natural or Artificial Opening Endoscopic (ICD-10-PCS; 2024-12-13)
PROC: 5A1945Z Respiratory Ventilation, 24-96 Consecutive Hours (ICD-10-PCS; 2024-12-13)
PROC: 5A1D70Z Performance of Urinary Filtration, Intermittent, Less than 6 Hours Per Day (ICD-10-PCS; 2024-12-13)
PROC: 5A1D70Z Performance of Urinary Filtration, Intermittent, Less than 6 Hours Per Day (ICD-10-PCS; 2024-12-14)
DX: A41.9 Sepsis, unspecified organism (principal); E43 Unspecified severe protein-calorie malnutrition; K29.71 Gastritis, unspecified, with bleeding; I63.9 Cerebral infarction, unspecified; J96.00 Acute respiratory failure, unspecified whether with hypoxia or hypercapnia; J69.0 Pneumonitis due to inhalation of food and vomit; G93.41 Metabolic encephalopathy; N18.6 End stage renal disease; I21.A1 Myocardial infarction type 2; R65.21 Severe sepsis with septic shock; J18.9 Pneumonia, unspecified organism; K29.81 Duodenitis with bleeding; K29.91 Gastroduodenitis, unspecified, with bleeding; D62 Acute posthemorrhagic anemia; E87.3 Alkalosis; I16.9 Hypertensive crisis, unspecified; J44.0 Chronic obstructive pulmonary disease with (acute) lower respiratory infection; J90 Pleural effusion, not elsewhere classified; G81.94 Hemiplegia, unspecified affecting left nondominant side; N39.0 Urinary tract infection, site not specified; E87.20 Acidosis, unspecified; I13.2 Hypertensive heart and chronic kidney disease with heart failure and with stage 5 chronic kidney disease, or end stage renal disease; I82.612 Acute embolism and thrombosis of superficial veins of left upper extremity; I48.20 Chronic atrial fibrillation, unspecified; K43.5 Parastomal hernia without obstruction or gangrene; I34.81 Nonrheumatic mitral (valve) annulus calcification; R04.0 Epistaxis; E78.5 Hyperlipidemia, unspecified; E11.22 Type 2 diabetes mellitus with diabetic chronic kidney disease; R62.7 Adult failure to thrive; R32 Unspecified urinary incontinence; I07.1 Rheumatic tricuspid insufficiency; I25.10 Atherosclerotic heart disease of native coronary artery without angina pectoris; K44.9 Diaphragmatic hernia without obstruction or gangrene; E86.0 Dehydration; I50.9 Heart failure, unspecified; E87.5 Hyperkalemia; F03.90 Unspecified dementia, unspecified severity, without behavioral disturbance, psychotic disturbance, mood disturbance, and anxiety; R13.10 Dysphagia, unspecified; Z85.038 Personal history of other malignant neoplasm of large intestine; Z93.3 Colostomy status; Z99.2 Dependence on renal dialysis; Z92.21 Personal history of antineoplastic chemotherapy; Z86.73 Personal history of transient ischemic attack (TIA), and cerebral infarction without residual deficits; Z80.3 Family history of malignant neoplasm of breast; Z80.0 Family history of malignant neoplasm of digestive organs; Z79.899 Other long term (current) drug therapy; Z79.01 Long term (current) use of anticoagulants; Z68.20 Body mass index [BMI] 20.0-20.9, adult; Y95 Nosocomial condition; I95.9 Hypotension, unspecified
CPT/HCPCS: 36415; 36430; 36558; 36600; 70450; 70551; 71045; 74178; 76536; 76775; 77001; 80048; 80053; 80061; 80074; 80162; 80202; 80307; 81001; 82140; 82270; 82306; 82607; 82728; 82805; 82962; 83036; 83540; 83550; 83605; 83735; 83880; 83970; 84100; 84443; 84478; 84484; 84550; 85007; 85014; 85018; 85025; 85027; 85048; 85610; 85730; 86706; 86850; 86900; 86901; 86920; 87040; 87070; 87077; 87081; 87086; 87186; 87205; 87340; 90935; 92610; 93005; 93306; 93886; 93971; 94002; 94003; 94640; 94660; 95819; 97110; 97163; 97530; 99152; 99291; C1894; G0378; J0131; J1100; J1642; J1756; J1815; J2405; J2470; J2543; J2704; J3480; J7131; P9047